=== PATIENT | female | born 1955 | race Caucasian/White ===

== ENCOUNTER → 2016-06-11 | Outpatient (CLI) | payer MEDICARE ==
[2016-06-11 12:55] LABS: Calcium 9.3 mg/dL (8.4-10.2); Potassium 4.8 mmol/L (3.5-5.1); Total Bilirubin 0.8 mg/dL (0.2-1.3)
== END | disposition home or self-care (01) ==
LOC: LABWHC1 11:15
PROVIDERS: ATTEND Internal Medicine Clinical Cardiac Electrophysiology
DX: I73.9 Peripheral vascular disease, unspecified (principal); I10 Essential (primary) hypertension
CPT/HCPCS: 36415; 80053; 80061; 84443

== ENCOUNTER 2016-06-30 18:40 | Emergency (ER) | payer MEDICARE ==
[2016-06-30] MEDS ORDERED: DIGOXIN 250 MCG/ML 2 ML AMP IVP ONE (19:13)
[2016-06-30 19:33] LABS: Basophils % (A) 1 %; CH 30.6; CHCM 35.4; Eosinophils # (A) 0.3 k/uL (0-0.7); Eosinophils % (A) 4 %; HCT 34.3 % (34.0-46.0); HDW 2.81; HGB 12.2 gm/dL (11.4-16.0); Luc # (Auto) 0.09; Luc % (Auto) 1; Lymphocytes # (A) 2.7 k/uL (1.0-4.8); Lymphocytes % (A) 38 %; MCH 30.8 pg (25.0-35.0); MCHC 35.6 g/dL (31.0-37.0); MCV 86.5 fL (80.0-100.0); Mean Platelet Volume 6.6; Monocytes # (A) 0.2 k/uL (0-1.0); Monocytes % (A) 3 %; Neutrophils # (A) 3.8 k/uL (1.3-7.7); Neutrophils % (A) 54 %; RBC 3.97 m/uL (3.80-5.40); RDW 14.6 % (11.5-15.5); WBC 7.1 k/uL (3.8-10.6); WBC (Perox) 7.28
[2016-06-30 19:43] LABS: INR 0.9 (<1.1); Prothrombin Time 9.5 sec (9.0-12.0)
[2016-06-30 19:45] LABS: Potassium 4.1 mmol/L (3.5-5.1); Total Bilirubin 0.9 mg/dL (0.2-1.3); Total Protein 6.7 g/dL (6.3-8.2)
[2016-06-30 19:50] LABS: Partial Thromboplastin Time 20.7 sec (22.0-30.0)
--- NOTE | 2016-06-30 19:55 | XR ---
EXAMINATION TYPE: XR chest 2V DATE OF EXAM: 06/30/2016 7:47 PM COMPARISON: 10/28/2015 HISTORY: Chest pain TECHNIQUE: Frontal and lateral views of the chest are obtained. FINDINGS: Heart and mediastinum are normal. Lungs are clear. Diaphragm is normal. Bony thorax is int act. There are chest leads. IMPRESSION: Normal chest. No change.
[2016-06-30 20:15] VITALS: BP 118/67; PULSE 71; RESP 18
[2016-06-30 20:15] LABS: Creatine Kinase MB 1.9 ng/mL (0.0-2.4); Troponin I <0.012 ng/mL (0.000-0.034)
--- NOTE | 2016-06-30 20:43 | ED ---
Chest Pain HPI - General Chief Complaint: Chest Pain Stated Complaint: Chest Pain Time Seen by Provider: 06/30/16 19:02 Source: patient Mode of arrival: EMS Limitations: no limitations - History of Present Illness Initial Comments: This is a 61-year-old female with a history of CHF, CAD who presents emergency department for an episode of chest pain. She states that she became very anxious and then all of a sudden developed some chest pain. She took a Xanax and a nitro and complete resolution of her symptoms. She currently feels completely fine. She denied any radiation of the pain. No lightheadedness or syncope. No nausea or vomiting. She did have a cath done in February and it does show obstructive disease. She followed up with a grommet man that you have, however they are not able to perform a CABG. She is scheduled to have a defibrillator in inserted because of her low EF. Her grommet man appears Dr. Steen. She denies any other complaints. - Related Data Home Medications Medication Instructions Recorded Confirmed Cholecalciferol [Vitamin D3] 2,000 unit PO DAILY 03/13/14 06/30/16 Omeprazole [PriLOSEC] 40 mg PO AC-BRKFST 08/06/14 06/30/16 Cyclobenzaprine [Flexeril] 10 mg PO HS 07/03/15 06/30/16 HYDROcodone/APAP 10-325MG [[place] 1 tab PO Q6HR PRN 10/28/15 06/30/16 10-325] Sennosides/Docusate Sodium 1 tab PO DAILY PRN 10/28/15 06/30/16 [Lotus-Colace Tablet] Escitalopram [Lexapro] 20 mg PO DAILY 11/06/15 06/30/16 Metoprolol Succinate [Toprol XL] 50 mg PO DAILY 02/09/16 06/30/16 INSULIN LISPRO (For Pump) [humaLOG 0.01 units SQ-PUMP CONTINUOUS 02/12/16 (For Pump)] Furosemide [Lasix] 20 mg PO SUTUWETHSA@209905/31/16 06/30/16 Rosuvastatin Calcium [Crestor] 40 mg PO DAILY 05/31/16 06/30/16 Furosemide [Lasix] 40 mg PO MOFR@209906/30/16 06/30/16 Furosemide [Lasix] 40 mg PO QAM 06/30/16 06/30/16 Previous Rx's Medication Instructions Recorded Clopidogrel [Plavix] 75 mg PO DAILY #90 tab 01/17/16 Nitroglycerin Sl Tabs [Nitrostat] 0.4 mg SUBLINGUAL Q5M PRN #25 tab 02/18/16 ALPRAZolam [Xanax] 0.25 mg PO TID PRN #21 tab 02/27/16 Aspirin 325 mg PO DAILY #30 tab 02/27/16 Spironolactone [Aldactone] 25 mg PO DAILY #30 tab 02/27/16 Allergies Allergy/AdvReac Type Severity Reaction Status Date / Time adhesive Allergy Rash/Hives Verified 06/30/16 19:38 Penicillins Allergy Rash/Hives Verified 06/30/16 19:38 meperidine HCl [From Demerol] AdvReac Hallucinati Verified 06/30/16 19:38 ons Review of Systems ROS Statement: Those systems with pertinent positive or pertinent negative responses have been documented in the HPI. ROS Other: All systems not noted in ROS Statement are negative. Past Medical History Past Medical History: Asthma, Coronary Artery Disease (CAD), Chest Pain / Angina , Diabetes Mellitus, Eye Disorder, Fibromyalgia, GERD/Reflux, Hyperlipidemia, Hypertension, Myocardial Infarction ([place]), Osteoarthritis (OA), Pneumonia, Renal Disease, Syncope, Vascular Disorder Additional Past Medical History / Comment(s): IDDM type II with insulin pump, numbness and tingling bilateral feet, nonhealing ulcers to L and R foot,rt foot baby toe tobias- dr levi monitoring per pt, PAD, carotid artery disease, anemia , bilateral retinopathy, generalized arthritis. Last Myocardial Infarction Date:: 02/12/2016 History of Any Multi-Drug Resistant Organisms: None Reported Past Surgical History: Adenoidectomy, Bariatric Surgery, Cholecystectomy, Heart Catheterization, Hernia Repair, Joint Replacement, Tonsillectomy Additional Past Surgical History / Comment(s): 02-11-16 R anterior tibial artery PTBA with post procedure hematoma, 01/16/16 L fem/pop arthrectomy with PTBA/ stent. Other surgical hx: Peripheral angiogram, 08/07/14 c cath, L hand pinky finger amputated, L arm surgery for staph infection, 3 hernia repairs, hiatal hernia repair, lap band placed and removed, gastric sleeve, bilateral cataract removal with lens implants. alesia breast bx neg,rt shoulder arthroscopy , [place] shoulder manipulation, lt elbow drained d/t staph infection 2006 Past Anesthesia/Blood Transfusion Reactions: Postoperative Nausea & Vomiting ( PONV) Additional Past Anesthesia/Blood Transfusion Reaction / Comment(s): Pt has had a blood transfusion recently Past Psychological History: Anxiety Additional Psychological History / Comment(s): Pt lives with her and their 3cats. She is very independent. She does not drive a car due to eye problems. She is diabetic and on an insulin pump. She has decreased her activities since her. last discharge due to her heart blockages. Her is very helpful. She is getting around in a wheelchair now or uses a rolling walker. She has VNA coming in a couple times a week. Smoking Status: Former smoker Past Alcohol Use History: None Reported Additional Past Alcohol Use History / Comment(s): Pt started smoking at the age of 11 and quit smoking many yrs ago (before 1984). Past Drug Use History: None Reported - Past Family History Father Family Medical History: Vascular Disorder Additional Family Medical History / Comment(s): from vascular disorder Mother Family Medical History: Deep Vein Thrombosis (DVT) General Exam - General Exam Comments Initial Comments: Constitutional: Awake alert Appears comfortable Head: Normocephalic atraumatic Eyes: no conjunctival injection No scleral icterus EOMI Neck: No JVD Supple Heart: Regular rate rhythm normal S1-S2 no murmurs Lungs: Clear to auscultation bilaterally No wheezing No rales Abdomen: Soft nondistended nontender Extremities: Non edematous DP pulses intact Radial pulses intact Neuro: A&Ox3 No focal neurologic deficits Psych: Appropriate mood and affect Limitations: no limitations Course Vital Signs 06/30/16 06/30/16 18:57 20:14 Temperature 97.8 F Pulse Rate 78 71 Respiratory 16 18 Rate Blood Pressure 119/78 118/67 O2 Sat by Pulse 95 99 Oximetry - Reevaluation(s) Reevaluation #1: 06/30/16 20:58 EKG showing normal sinus rhythm with a rate of 76. No ST 7 changes or T-wave inversions. QTC is 477. Other intervals are normal. No ectopy. Chest Pain MDM - MDM This is a 61-year-old female who presents emergency department for chest pain. It resolved by the time she got here. Blood work showed a negative troponin and EKG was completely unremarkable. Spoke with Dr. fabian on who is manager of corporate communications for Dr. Sandy and he stated that he felt comfortable with the patient going home and following up as an outpatient. The patient states that she feels comfortable with this plan as well. Told to return should any worsening or changing symptoms reductions were answered. Disposition Clinical Impression: Chest pain Disposition: HOME SELF-CARE Condition: Stable Instructions: Chest Pain (ED) Referrals: Jairo Levi DO [Primary Care Provider] - 1-2 days Leonardo Steen MD [STAFF PHYSICIAN] - 1-2 days
[2016-06-30 21:06] VITALS: TEMP 99
== END 2016-06-30 20:55 | disposition home or self-care (01) ==
LOC: EC 18:40
DX: R07.9 Chest pain, unspecified (principal); I10 Essential (primary) hypertension; E78.5 Hyperlipidemia, unspecified; K21.9 Gastro-esophageal reflux disease without esophagitis; E11.29 Type 2 diabetes mellitus with other diabetic kidney complication; N28.9 Disorder of kidney and ureter, unspecified; I25.10 Atherosclerotic heart disease of native coronary artery without angina pectoris; I50.9 Heart failure, unspecified; I25.2 Old myocardial infarction; F41.9 Anxiety disorder, unspecified; Z87.891 Personal history of nicotine dependence; Z79.4 Long term (current) use of insulin; Z79.82 Long term (current) use of aspirin; Z79.02 Long term (current) use of antithrombotics/antiplatelets; Z79.899 Other long term (current) drug therapy; Z88.0 Allergy status to penicillin; Z88.5 Allergy status to narcotic agent
CPT/HCPCS: 36415; 71020; 80053; 82553; 84484; 85025; 85610; 85730; 93005; 99284

== ENCOUNTER 2016-07-15 06:24 | Day surgery (SDC) | payer MEDICARE ==
[2016-07-13 13:04] VITALS: BMI 31.4
[2016-07-15] MEDS ORDERED: SODIUM CHLORIDE 0.9% 1,000 ML IV SCH (06:27)
[2016-07-15] MEDS ORDERED: CLINDAMYCIN 900 MG in DEXTROSE 5% IN WATER 50 ML IVPB ONE ×2 (06:27)
[2016-07-15] MEDS ORDERED: CLINDAMYCIN 600 MG in SODIUM CHLORIDE 0.9% IRRIGATIO 250 ML IRRIGATION ONE (06:27)
[2016-07-15 07:01] LABS: Glucose,Whole Blood 105 mg/dL (75-99)
[2016-07-15] MEDS ORDERED: PROPOFOL 10 MG/ML 20 ML VIAL IV ONE (07:18)
[2016-07-15] MEDS ORDERED: MIDAZOLAM 2 MG/2 ML VIAL ONE (07:18)
[2016-07-15] MEDS ORDERED: ePHEDrine 50 MG/ML 1 ML AMP ONE (07:18)
[2016-07-15] MEDS ORDERED: fentaNYL (PF) 50 MCG/ML 2 ML AMP ONE (07:18)
[2016-07-15] MEDS ORDERED: LIDOCAINE 1% INJ 10MG/ML (20 ML MDV) SQ ONE ×2 (08:07→08:12)
[2016-07-15] MEDS ORDERED: IODIXANOL 320 MG/ML 100 ML IV ONE (08:25)
[2016-07-15] MEDS ORDERED: ACETAMINOPHEN TAB 325 MG TAB PO PRN (09:15)
[2016-07-15] MEDS ORDERED: INSULIN LISPRO (For Pump) 100 UNIT/ML VIAL SQ-PUMP SCH (09:30)
[2016-07-15 09:44] LABS: Glucose,Whole Blood 126 mg/dL (75-99)
--- NOTE | 2016-07-15 09:55 | PCN ---
DATE OF PROCEDURE: Dodie Zafar is a 61-year-old female who has severe coronary artery disease with ischemic cardiomyopathy, ejection fraction 35%, class III heart failure but stable now. She has had recurrent heart failure admissions in the past. She also has severe peripheral vascular disease, status post intervention following which her ulcer healed very well. She has diabetes and hypertension and she has undergone stenting to the mid RCA in of February 2016. She was brought in for single-chamber ICD implantation for primary prevention of sudden cardiac . Patient brought to the EP lab in a fasting state. Written informed consent was obtained prior to the procedure. The left shoulder area was prepped and draped as per protocol, 1% lidocaine was used for local anesthesia. A 4 cm incision was made parallel to the deltopectoral groove about 1.5 cm in length. The incision was carried down to the level of pectoralis muscle. A subfascial pocket was made. Hemostasis was assured. The left axillary vein was accessed to the single-point and via an appropriate-sized introducer sheath, a single coil lead was positioned in the right heart. The ICD was positioned screwed in the RV apex. This is single coil lead, [place] 64 cm model #0293, serial #[id number], DS 4-lead. R-waves were 17.8 mV, pacing threshold 0.9 v at 0.4 ms, pacing impedance 800 ohms, high voltage impedance 72 ohms, 10 V test was negative. The lead was secured to the underlying pectoralis fascia using 2 nonabsorbable sutures. Pocket was irrigated with antibiotic solution. The lead was connected to the generator ([employer] model #D150, serial #[id number].) The generator was placed in the subfascial pocket, the generator was sutured in the pectoralis muscle. The wound was closed in 3 layers and dressed per protocol. DFT testing under anesthesia, shock and T-wave protocol was used to induce ventricular fibrillation. This was adequately and appropriately detected at least sensitivity and successfully internally defibrillated with a 10 joule shock. The charge time who was 1.9 seconds, shocking impedance 66 ohms, no postshock noise. The device was then programmed according to the RIT programming and with back-up pacing at VVI 40. RESULT: Successful single-chamber ICD implantation for primary prevention of sudden cardiac in the setting of ischemic cardiomyopathy with heart failure. Patient on appropriate medical treatment. Ejection fraction chronically at 35%.
--- NOTE | 2016-07-15 09:57 | LTR ---
July 15, 2016 RE: Dodie Zafar Meghan Dear Jairo: I had the pleasure of seeing Dodie Zafar in electrophysiology follow up. As you know, Dodie has severe ischemic cardiomyopathy with a history of heart failure. She has now stabilized on medical treatment. Her lower extremity ulcers have also healed following percutaneous intervention by Dr. Steen. Her left ventricular ejection fraction is chronically at 35% despite appropriate medical treatment and she underwent a single-chamber ICD implantation for primary prevention of sudden cardiac . She will be discharged home tomorrow. If you have any questions, please do not hesitate to give me a call. Thank you for entrusting me with the care of your patient. Warm regards. Sincerely, FE LYON MD
[2016-07-15 12:02] LABS: Glucose,Whole Blood 111 mg/dL (75-99)
[2016-07-15] MEDS ORDERED: INSULIN PUMP ACTIVE INSULIN 1 EACH MISC MISCELLANE PRN (12:08)
[2016-07-15] MEDS ORDERED: INSULIN LISPRO (humaLOG) 300 UNIT/3 ML VIAL SQ PRN (12:08)
[2016-07-15] MEDS ORDERED: INSULIN PUMP BASAL RATES 1 EACH MISC MISCELLANE PRN (12:08)
[2016-07-15] MEDS ORDERED: INSULIN PUMP TARGET GLUCOSE 1 EACH MISC MISCELLANE PRN (12:08)
[2016-07-15] MEDS ORDERED: INSPUCOR MISCELLANE PRN (12:08)
[2016-07-15] MEDS: INSULIN PUMP MEAL BOLUS 1 UNIT MISC MISCELLANE SCH ×3 (13:52→20:35)
[2016-07-15] MEDS: CLINDAMYCIN 900 MG in DEXTROSE 5% IN WATER 50 ML IVPB SCH ×4 (13:55→20:31)
[2016-07-15 17:13] LABS: Glucose,Whole Blood 164 mg/dL (75-99)
[2016-07-15] MEDS: FUROSEMIDE 40 MG TAB PO SCH (20:31)
[2016-07-15 20:36] LABS: Glucose,Whole Blood 190 mg/dL (75-99)
[2016-07-15] MEDS ORDERED: CYCLOBENZAPRINE 10 MG TAB PO SCH (21:00)
[2016-07-15] MEDS ORDERED: LISINOPRIL 2.5 MG TAB PO SCH (21:00)
[2016-07-15] MEDS: HYDROcodone/APAP 10-325MG 1 EACH TAB PO PRN (23:30)
[2016-07-16] MEDS: CLINDAMYCIN 900 MG in DEXTROSE 5% IN WATER 50 ML IVPB SCH ×4 (01:27→07:45)
[2016-07-16 02:42] LABS: Glucose,Whole Blood 108 mg/dL (75-99)
[2016-07-16] MEDS: INSULIN PUMP MEAL BOLUS 1 UNIT MISC MISCELLANE SCH (07:45)
[2016-07-16] MEDS: FUROSEMIDE 40 MG TAB PO SCH (07:46)
[2016-07-16 07:50] LABS: Glucose,Whole Blood 85 mg/dL (75-99)
--- NOTE | 2016-07-16 08:08 | XR ---
EXAMINATION TYPE: XR chest 2V DATE OF EXAM: 07/16/2016 6:56 AM HISTORY: Lead placement check. REFERENCE: Previous study dated 06/30/2016. FINDINGS: A unipolar pacemaker has been inserted via a left subclavian approach. Its tip overlies the right ventricle. The lungs are clear. Pleural spaces are clear. Heart size is normal. IMPRESSION: NORMAL UNIPOLAR PACEMAKER LEAD PLACEMENT.
--- NOTE | 2016-07-16 08:14 | P.DS ---
Providers Attending physician: Toñito Nagel Primary care physician: Jairo [facility] Course: Patient is doing well. She has mild discomfort in the ICD site. No hematoma. No chest discomfort no shortness of breath Temperature 98.5F pulse rate in the 70s, normal respirations, blood pressure 100/50 mmHg Breath sounds are normal Heart sounds are normal Impression Severe ischemic cardio myopathy, left radical ejection fraction 30-35%, chronic systolic dysfunction with class III congestive heart failure stable at this time On appropriate Therapy for cardiomyopathy in heart failure Coronary artery disease Peripheral vascular disease Status post single chamber ICD for primary prevention of sudden cardiac Discharge home today after IV antibiotics and device interrogation Patient Condition at Discharge: Stable Plan - Discharge Summary Discharge Medication List Cholecalciferol [Vitamin D3] 2,000 unit PO DAILY 03/13/14 [History] Omeprazole [PriLOSEC] 40 mg PO AC-BRKFST 08/06/14 [History] Cyclobenzaprine [Flexeril] 10 mg PO HS 07/03/15 [History] HYDROcodone/APAP 10-325MG [[place] 10-325] 1 tab PO Q6HR PRN 10/28/15 [History] Sennosides/Docusate Sodium [Lotus-Colace Tablet] 1 tab PO DAILY 10/28/15 [History ] Escitalopram [Lexapro] 20 mg PO DAILY 11/06/15 [History] Clopidogrel [Plavix] 75 mg PO DAILY #90 tab 01/17/16 [Rx] Metoprolol Succinate [Toprol XL] 25 mg PO DAILY 02/09/16 [History] INSULIN LISPRO (For Pump) [humaLOG (For Pump)] 0.01 units SQ-PUMP CONTINUOUS 10/22 [History] Nitroglycerin Sl Tabs [Nitrostat] 0.4 mg SUBLINGUAL Q5M PRN #25 tab 02/18/16 [Rx ] ALPRAZolam [Xanax] 0.25 mg PO TID PRN #21 tab 02/27/16 [Rx] Aspirin 325 mg PO DAILY #30 tab 02/27/16 [Rx] Spironolactone [Aldactone] 25 mg PO DAILY #30 tab 02/27/16 [Rx] Rosuvastatin Calcium [Crestor] 40 mg PO DAILY 05/31/16 [History] Furosemide [Lasix] 40 mg PO BID 06/30/16 [History] Lisinopril [Zestril] 2.5 mg PO HS 07/13/16 [History]
[2016-07-16 08:25] VITALS: BP 96/51; PULSE 69; RESP 14; TEMP 98.2
[2016-07-16] MEDS ORDERED: ESCITALOPRAM 20 MG TAB PO SCH (09:00)
[2016-07-16] MEDS ORDERED: ASPIRIN 325 MG TAB PO SCH (09:00)
[2016-07-16] MEDS ORDERED: CLOPIDOGREL 75 MG TAB PO SCH (09:00)
[2016-07-16] MEDS ORDERED: SPIRONOLACTONE 25 MG TAB PO SCH (09:00)
[2016-07-16] MEDS ORDERED: NON-FORMULARY DRUG (Rosuvastatin Calcium [Crestor] 40 MG) PO SCH (09:00)
[2016-07-16] MEDS ORDERED: METOPROLOL SUCCINATE (ER) 25 MG TAB.ER.24H PO SCH (09:00)
[2016-07-16] MEDS: HYDROcodone/APAP 10-325MG 1 EACH TAB PO PRN (09:05)
[2016-07-16 19:49] LABS: Hemoglobin A1C 7.9 % (4.2-6.1)
== END 2016-07-16 11:00 | disposition home or self-care (01) ==
LOC: CATHEP 06:24 → 3OBS 09:18 → CATHEP 07-16 11:00
PROVIDERS: ATTEND Internal Medicine Clinical Cardiac Electrophysiology
DX: I25.5 Ischemic cardiomyopathy (principal); I25.82 Chronic total occlusion of coronary artery; E11.9 Type 2 diabetes mellitus without complications; I10 Essential (primary) hypertension; Z00.6 Encounter for examination for normal comparison and control in clinical research program; I50.22 Chronic systolic (congestive) heart failure; I70.244 Atherosclerosis of native arteries of left leg with ulceration of heel and midfoot; I70.234 Atherosclerosis of native arteries of right leg with ulceration of heel and midfoot; Z95.820 Peripheral vascular angioplasty status with implants and grafts; I65.29 Occlusion and stenosis of unspecified carotid artery; I25.2 Old myocardial infarction; Z87.891 Personal history of nicotine dependence; Z82.49 Family history of ischemic heart disease and other diseases of the circulatory system; Z95.5 Presence of coronary angioplasty implant and graft; Z79.02 Long term (current) use of antithrombotics/antiplatelets; Z79.82 Long term (current) use of aspirin; Z79.4 Long term (current) use of insulin; Z79.899 Other long term (current) drug therapy; Z88.5 Allergy status to narcotic agent; Z88.0 Allergy status to penicillin; Z88.8 Allergy status to other drugs, medicaments and biological substances
CPT/HCPCS: 33249; 83036; 71020; C1777; C1722; J2250; Q9967; J2001; J3010; J2704

== ENCOUNTER 2016-09-23 13:31 | Inpatient (IN) | payer MEDICARE ==
--- NOTE | 2016-09-23 14:39 | ED ---
General Adult HPI - General Chief complaint: Extremity Injury, Upper Stated complaint: rib pain/injury Time Seen by Provider: 09/23/16 14:23 Source: patient, RN notes reviewed, old records reviewed Mode of arrival: ambulatory Limitations: no limitations - History of Present Illness Initial comments: This is a 61-year-old female here for evaluation of side pain right side pain severe. Severe pain when she moves and takes a deep breath. Patient has significant disease history including heart disease. Patient states symptoms began when she was reaching over the car, she felt "as well as had severe right- sided pain. Symptoms for greater than today she woke up with pain worsen was yesterday, [place] as which she takes at home for pain and that is not helping at this time. No fevers. - Related Data Home Medications Medication Instructions Recorded Confirmed Cholecalciferol [Vitamin D3] 2,000 unit PO DAILY 03/13/14 09/23/16 Omeprazole [PriLOSEC] 40 mg PO AC-BRKFST 08/06/14 09/23/16 Cyclobenzaprine [Flexeril] 10 mg PO HS 07/03/15 09/23/16 HYDROcodone/APAP 10-325MG [[place] 1 tab PO Q6HR PRN 10/28/15 09/23/16 10-325] Sennosides/Docusate Sodium 1 tab PO DAILY 10/28/15 09/23/16 [Lotus-Colace Tablet] INSULIN LISPRO (For Pump) [humaLOG 0.01 units SQ-PUMP CONTINUOUS 02/12/16 (For Pump)] Rosuvastatin Calcium [Crestor] 40 mg PO DAILY 05/31/16 09/23/16 Lisinopril [Zestril] 2.5 mg PO HS 07/13/16 09/23/16 Escitalopram [Lexapro] 20 mg PO DAILY 09/23/16 09/23/16 Metoprolol Succinate [Toprol XL] 25 mg PO DAILY 09/23/16 09/23/16 Previous Rx's Medication Instructions Recorded Clopidogrel [Plavix] 75 mg PO DAILY #90 tab 01/17/16 Nitroglycerin Sl Tabs [Nitrostat] 0.4 mg SUBLINGUAL Q5M PRN #25 tab 02/18/16 ALPRAZolam [Xanax] 0.25 mg PO TID PRN #21 tab 02/27/16 Aspirin 325 mg PO DAILY #30 tab 02/27/16 Spironolactone [Aldactone] 25 mg PO DAILY #30 tab 02/27/16 Allergies Allergy/AdvReac Type Severity Reaction Status Date / Time adhesive tape Allergy Rash/Hives Verified 09/23/16 15:05 Penicillins Allergy Rash/Hives Verified 09/23/16 15:05 atorvastatin AdvReac Myalgia Verified 09/23/16 15:05 meperidine HCl [From Demerol] AdvReac Hallucinati Verified 09/23/16 15:05 ons Review of Systems ROS Statement: Those systems with pertinent positive or pertinent negative responses have been documented in the HPI. ROS Other: All systems not noted in ROS Statement are negative. Past Medical History Past Medical History: Asthma, Coronary Artery Disease (CAD), Chest Pain / Angina , Diabetes Mellitus, Eye Disorder, Fibromyalgia, GERD/Reflux, Hyperlipidemia, Hypertension, Myocardial Infarction ([place]), Osteoarthritis (OA), Pneumonia, Renal Disease, Syncope, Vascular Disorder Additional Past Medical History / Comment(s): IDDM type II with insulin pump. numbness and tingling bilateral feet, PAD. Carotid artery disease. anemia. Bilateral retinopathy - BEING TREATED. KIDNEY DISEASE STAGE 3. BRUISES EASILY. SHORT OF BREATH, LIGHTHEADED W/ ACTIVITY. CMP. SEE DR Ward. Last Myocardial Infarction Date:: 02/12/2016 History of Any Multi-Drug Resistant Organisms: None Reported Past Surgical History: Adenoidectomy, Bariatric Surgery, Cholecystectomy, Heart Catheterization, Heart Catheterization With Stent, Hernia Repair, Joint Replacement, Tonsillectomy Additional Past Surgical History / Comment(s): 02-11-16 RT anterior tibial artery PTBA with post procedure hematoma, 01/16/16 L fem/pop arthrectomy with PTBA/stent. Peripheral angiogram, LT hand pinky finger amputated. L arm surgery for staph infection. 3 hernia repairs. hiatal hernia repair, lap band placed, removed, THEN gastric sleeve. bilateral cataract removal, XAVIER SHOULDER manipulation, lt elbow drained d/t staph infection 2005 Past Anesthesia/Blood Transfusion Reactions: Postoperative Nausea & Vomiting ( PONV) Additional Past Anesthesia/Blood Transfusion Reaction / Comment(s): LAST Blood Transfusion, 02/2016. Date of Last Stent Placement:: 02/2016 Past Psychological History: Anxiety, Depression Additional Psychological History / Comment(s): She is getting around in a wheelchair now. Smoking Status: Former smoker Past Alcohol Use History: None Reported Additional Past Alcohol Use History / Comment(s): Pt started smoking at the age of 11 and quit smoking many yrs ago (before 1984). Past Drug Use History: None Reported - Past Family History Father Family Medical History: Vascular Disorder Additional Family Medical History / Comment(s): from vascular disorder Mother Family Medical History: Deep Vein Thrombosis (DVT) General Exam Limitations: no limitations General appearance: alert, in no apparent distress Head exam: Present: atraumatic, normocephalic, normal inspection Eye exam: Present: normal appearance, PERRL, EOMI. Absent: scleral icterus, conjunctival injection, periorbital swelling ENT exam: Present: normal exam, mucous membranes moist Neck exam: Present: normal inspection. Absent: tenderness, meningismus, lymphadenopathy Respiratory exam: Present: normal lung sounds bilaterally. Absent: respiratory distress, wheezes, rales, rhonchi, stridor Cardiovascular Exam: Present: regular rate, normal rhythm, normal heart sounds. Absent: systolic murmur, diastolic murmur, rubs, gallop, clicks GI/Abdominal exam: Present: soft, normal bowel sounds. Absent: distended, tenderness, guarding, rebound, rigid Extremities exam: Present: normal inspection, full ROM, normal capillary refill. Absent: tenderness, pedal edema, joint swelling, calf tenderness Back exam: Present: normal inspection Neurological exam: Present: alert, oriented X3, CN II-XII intact Psychiatric exam: Present: normal affect, normal mood Skin exam: Present: warm, dry, intact, normal color. Absent: rash Course Vital Signs 09/23/16 13:37 Temperature 98.2 F Pulse Rate 83 Respiratory 20 Rate Blood Pressure 91/56 O2 Sat by Pulse 100 Oximetry - Reevaluation(s) Reevaluation #1: 09/23/16 15:59 Patient's pain is controlled Reevaluation #2: 09/23/16 16:21 Patient remains with good pain control at this time Medical Decision Making - Medical Decision Making 61 female to ER with right-sided flank pain, rib pain. Patient does have pulled muscle which is controlled pain control with patient's also found to be in profound renal failure dehydration. Patient be admitted for fluid resuscitation and nephrology evaluation - Lab Data Result diagrams: 09/23/16 15:42 09/23/16 15:42 Lab Results 09/23/16 09/23/16 09/23/16 Range/Units 15:42 15:42 15:42 WBC 8.3 (3.8-10.6) k/uL RBC 3.83 (3.80-5.40) m/uL Hgb 11.9 (11.4-16.0) gm/dL Hct 34.2 (34.0-46.0) % MCV 89.4 (80.0-100.0) fL MCH 31.1 (25.0-35.0) pg MCHC 34.8 (31.0-37.0) g/dL RDW 12.3 (11.5-15.5) % Plt Count 225 (150-450) k/uL Neutrophils % 48 % Lymphocytes % 41 % Monocytes % 6 % Eosinophils % 4 % Basophils % 1 % Neutrophils # 4.0 (1.3-7.7) k/uL Lymphocytes # 3.4 (1.0-4.8) k/uL Monocytes # 0.5 (0-1.0) k/uL Eosinophils # 0.3 (0-0.7) k/uL Basophils # 0.1 (0-0.2) k/uL PT 9.9 (9.0-12.0) sec INR 1.0 (<1.1) APTT 24.0 (22.0-30.0) sec Sodium 135 L (137-145) mmol/L Potassium 4.6 (3.5-5.1) mmol/L Chloride 101 (98-107) mmol/L Carbon Dioxide 20 L (22-30) mmol/L Anion Gap 14 mmol/L BUN 87 H* (7-17) mg/dL Creatinine 5.80 H* (0.52-1.04) mg/dL Est GFR (MDRD) Af Amer 9 (>60 ml/min/1.73 sqM) Est GFR (MDRD) Non-Af 7 (>60 ml/min/1.73 sqM) Glucose 102 H (74-99) mg/dL Calcium 9.4 (8.4-10.2) mg/dL Magnesium 2.8 H (1.6-2.3) mg/dL Total Bilirubin 0.5 (0.2-1.3) mg/dL AST 25 (14-36) U/L ALT 24 (9-52) U/L Alkaline Phosphatase 62 (38-126) U/L Total Protein 6.9 (6.3-8.2) g/dL Albumin 4.1 (3.5-5.0) g/dL Lipase 72 (23-300) U/L - Radiology Data Radiology results: report reviewed (CT pelvis is negative for acute disease, x- ray right ribs is negative for injury), image reviewed Disposition Clinical Impression: Renal failure Disposition: ADMITTED IP TO THIS [facility] Condition: Fair Referrals: Jairo Levi DO [Primary Care Provider] - 1-2 days
[2016-09-23] MEDS ORDERED: KETOROLAC 30 MG/ML 1 ML VIAL IVP STA (14:50)
[2016-09-23] MEDS ORDERED: MORPHINE SULFATE 4 MG/ML SYRINGE IV STA (14:50)
[2016-09-23] MEDS ORDERED: SODIUM CHLORIDE 0.9% 1,000 ML IV STA ×3 (14:50→17:06)
[2016-09-23] MEDS ORDERED: HYDROmorphone 2 MG/ML 1 ML SYRINGE IM STA (15:02)
--- NOTE | 2016-09-23 15:20 | CT ---
EXAMINATION TYPE: CT abdomen pelvis wo con DATE OF EXAM: 09/23/2016 3:11 PM HISTORY: Right rib and abdominal pain after bending to pick something up. CT DLP: 865.30 mGycm. Automated Exposure Control for Dose Reduction was Utilized. TECHNIQUE: CT scan of the abdomen and pelvis is performed without oral or IV contrast. COMPARISON: CT abdomen and pelvis July 17, 2013 FINDINGS: Within the limitations of a non-contrast study, the following observations are made. LUNG BASES: There is partial visualization of new pacemaker/defibrillator leads. LIVER/GB: Cholecystectomy clips are redemonstrated PANCREAS: Fat replaced atrophy of pancreas is again seen. SPLEEN: No significant abnormality is seen. ADRENALS: No significant abnormality is seen. KIDNEYS: Some cortical thinning in both kidneys is noted. BOWEL: Evaluation bowel is suboptimal secondary to lack of enteric contrast. There is interval remova l of lap band device. Surgical changes presumed from gastric sleeve procedure are seen along the left lateral margin of the stomach. There is no suspicious small or large bowel dilatation. Normal-appear ing appendix is seen from cecum. GENITAL ORGANS: No gross abnormality seen. LYMPH NODES: No greater than 1cm abdominal or pelvic lymph nodes are appreciated. OSSEOUS STRUCTURES: Osseous structures are demineralized. Facet arthropathy lower lumbar levels is ag ain seen. OTHER: There is wide neck fat-containing ventral wall hernia in the midline above the umbilicus on ax ial image 39 new from prior. There is mild to moderate calcified atherosclerotic change of aorta extending into pelvic branch vess els IMPRESSION: No significant new or acute finding is identified to account for patient's symptoms.
[2016-09-23 15:57] LABS: Basophils # (A) 0.1 k/uL (0-0.2); Basophils % (A) 1 %; CH 31.5; CHCM 35.4; Eosinophils # (A) 0.3 k/uL (0-0.7); Eosinophils % (A) 4 %; HCT 34.2 % (34.0-46.0); HDW 2.76; HGB 11.9 gm/dL (11.4-16.0); Luc # (Auto) 0.17; Luc % (Auto) 2; Lymphocytes # (A) 3.4 k/uL (1.0-4.8); Lymphocytes % (A) 41 %; MCH 31.1 pg (25.0-35.0); MCHC 34.8 g/dL (31.0-37.0); MCV 89.4 fL (80.0-100.0); Mean Platelet Volume 6.8; Monocytes # (A) 0.5 k/uL (0-1.0); Monocytes % (A) 6 %; Neutrophils % (A) 48 %; RBC 3.83 m/uL (3.80-5.40); RDW 12.3 % (11.5-15.5); WBC 8.3 k/uL (3.8-10.6)
[2016-09-23 16:04] LABS: Prothrombin Time 9.9 sec (9.0-12.0)
[2016-09-23 16:11] LABS: Calcium 9.4 mg/dL (8.4-10.2); Magnesium 2.8 mg/dL (1.6-2.3); Potassium 4.6 mmol/L (3.5-5.1); Total Bilirubin 0.5 mg/dL (0.2-1.3); Total Protein 6.9 g/dL (6.3-8.2)
--- NOTE | 2016-09-23 16:13 | XR ---
EXAMINATION TYPE: XR ribs RT w pa chest x-ray DATE OF EXAM: 09/23/2016 4:04 PM CLINICAL HISTORY: Straining injury with chest and right-sided rib pain. TECHNIQUE: Single frontal view of the chest is obtained. A frontal and oblique images of the right-si ded ribs are acquired. COMPARISON: Prior chest x-ray July 16, 2016 FINDINGS: There is no focal air space opacity, pleural effusion, or pneumothorax seen. The cardiac silhouette size is within normal limits. There is single lead pacemaker/AICD redemonstrated. The os seous structures are demineralized. Dedicated images of right-sided ribs show chronic deformity or shortening of right sixth rib. No acut e displaced right-sided rib fractures are evident. Cholecystectomy clips are noted. IMPRESSION: 1. No acute cardiopulmonary process. 2. No acute displaced right-sided rib fractures are evident
[2016-09-23] MEDS ORDERED: HYDROmorphone 1 MG/ML 1 ML SYRINGE IVP STA (16:20)
[2016-09-23] MEDS ORDERED: HYDROmorphone 1 MG/ML 1 ML SYRINGE IVP PRN (16:20)
[2016-09-23 16:32] LABS: Creatine Kinase MB 2.2 ng/mL (0.0-2.4); Troponin I 0.018 ng/mL (0.000-0.034)
[2016-09-23] MEDS ORDERED: ACETAMINOPHEN IV (For NPO) 1,000 MG in EMPTY BAG 1 BAG IVPB STA (17:17)
[2016-09-23] MEDS ORDERED: NALOXONE 0.4 MG/ML 10 ML VIAL IVP STA (17:17)
[2016-09-23] MEDS ORDERED: ALPRAZolam 0.25 MG TAB PO PRN (18:41)
[2016-09-23] MEDS ORDERED: NITROGLYCERIN SL TABS 0.4 MG TAB SUBLINGUAL PRN (18:41)
[2016-09-23] MEDS ORDERED: INSULIN LISPRO (humaLOG) 300 UNIT/3 ML VIAL SQ PRN (19:01)
[2016-09-23] MEDS ORDERED: INSULIN PUMP BASAL RATES 1 EACH MISC MISCELLANE PRN (19:01)
[2016-09-23] MEDS ORDERED: INSPUCOR MISCELLANE PRN (19:01)
[2016-09-23] MEDS: INSULIN LISPRO (For Pump) 100 UNIT/ML VIAL SQ-PUMP SCH (19:33)
[2016-09-23] MEDS ORDERED: LISINOPRIL 2.5 MG TAB PO SCH (21:00)
[2016-09-23 21:38] LABS: Glucose,Whole Blood 94 mg/dL (75-99)
[2016-09-23] MEDS: CYCLOBENZAPRINE 10 MG TAB PO SCH (21:42)
[2016-09-24 02:22] LABS: Glucose,Whole Blood 86 mg/dL (75-99)
[2016-09-24 07:03] LABS: Glucose,Whole Blood 79 mg/dL (75-99)
[2016-09-24] MEDS: SENNOSIDES-DOCUSATE SODIUM 1 EACH TAB PO SCH (08:00)
[2016-09-24] MEDS: ASPIRIN 325 MG TAB PO SCH (08:00)
[2016-09-24] MEDS: CHOLECALCIFEROL 1,000 UNIT TAB PO SCH (08:00)
[2016-09-24] MEDS: SPIRONOLACTONE 25 MG TAB PO SCH (08:00)
[2016-09-24] MEDS: ESCITALOPRAM 20 MG TAB PO SCH (08:00)
[2016-09-24] MEDS: METOPROLOL SUCCINATE (ER) 25 MG TAB.ER.24H PO SCH (08:00)
[2016-09-24] MEDS: PANTOPRAZOLE 40 MG TABLET PO SCH (08:00)
[2016-09-24] MEDS: CLOPIDOGREL 75 MG TAB PO SCH (08:01)
--- NOTE | 2016-09-24 08:11 | US ---
EXAMINATION TYPE: US kidneys/renal and bladder DATE OF EXAM: 09/24/2016 7:52 AM COMPARISON: NONE CLINICAL HISTORY: 58-year-old female with pain, acute renal failure . TECHNIQUE: Multiple sonographic images of the kidneys and bladder were obtained. FINDINGS: LINUX DEVELOPER NOTES: Morbidly obese patient, technically difficult study. Right Kidney: 10.6 x 4.1 x 4.8 cm Left Kidney: 10.2 x 4.9 x 5.0 cm with limited visualization of the lower pole. No hydronephrosis on either side. No gross abnormality of the urine distended bladder. IMPRESSION: Large patient body habitus causing technical limitations. No hydronephrosis seen on either side.
[2016-09-24 09:50] LABS: Calcium 8.2 mg/dL (8.4-10.2); Potassium 4.2 mmol/L (3.5-5.1)
--- NOTE | 2016-09-24 10:02 | P.NPCON ---
History of Present Illness - Reason for Consult acute renal failure - History of Present Illness Reason for consultation: Acute kidney injury History of present illness: Patient is a 61-year-old female seen in renal consultation for acute kidney injury. Her creatinine in February 2016 was 1 and has been in the range of 1.6-1.8 from June 2016. Her creatinine this admission is 5.8. Patient presented to the hospital with right-sided flank pain. Patient states this started last Tuesday when she was bending over in her car to get some Kleenex and felt a snap. No evidence of fracture is noted. She denies any bruising or any bleeding. She does admit to vomiting almost on a daily basis. She denies any diarrhea. She does have severe systolic CHF with ejection fraction of less than 20% with moderate mitral regurgitation and pulmonary hypertension. She has a defibrillator in place. Her prior urinalysis from October 2015 was completely benign. Chest x-ray this admission reveals no evidence of fluid overload. His no evidence of hydronephrosis. She does take diuretics at home which are currently held. Patient states her mother had chronic kidney disease but was not on dialysis. She is not sure of the etiology. Denies use of NSAIDs. Her blood pressures also been low in the systolic 80s this admission. She did receive a 2 L bolus upon admission and is currently maintained on normal saline at 100 mL an hour. Vital signs are stable. General: The patient appeared well nourished and normally developed. HEENT: Head exam is unremarkable. Neck is without jugular venous distension. LUNGS: Lungs are clear to auscultation and percussion. Breath sounds decreased. HEART: Rate and Rhythm are regular. First and second heart sounds normal. No murmurs, rubs or gallops. ABDOMEN: Abdominal exam reveals normal bowel sounds. Non-tender and non- distended. No evidence of peritonitis. EXTREMITITES: No clubbing, cyanosis, or edema. Past Medical History Past Medical History: Asthma, Coronary Artery Disease (CAD), Chest Pain / Angina , Diabetes Mellitus, Eye Disorder, Fibromyalgia, GERD/Reflux, Hyperlipidemia, Hypertension, Myocardial Infarction ([place]), Osteoarthritis (OA), Pneumonia, Renal Disease, Syncope, Vascular Disorder Additional Past Medical History / Comment(s): IDDM type II with insulin pump. numbness and tingling bilateral feet, PAD. PAST FOOT ULCERS Carotid artery disease. anemia. 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 BRUISES EASILY. SHORT OF BREATH,BALANCE ISSUES AND LIGHTHEADED W/ ACTIVITY. Last Myocardial Infarction Date:: 02/12/2016 History of Any Multi-Drug Resistant Organisms: None Reported Past Surgical History: Adenoidectomy, AICD, Bariatric Surgery, Cholecystectomy, Heart Catheterization, Heart Catheterization With Stent, Hernia Repair, Joint Replacement, Tonsillectomy Additional Past Surgical History / Comment(s): 02-11-16 RT anterior tibial artery PTBA with post procedure hematoma, 01/16/16 L fem/pop arthrectomy with PTBA/stent. Peripheral angiogram, LT hand pinky finger amputated. L arm surgery for staph infection. 3 hernia repairs. hiatal hernia repair, lap band placed, removed, THEN gastric sleeve. bilateral cataract removal, XAVIER SHOULDER manipulation, lt elbow drained d/t staph infection 2005 Past Anesthesia/Blood Transfusion Reactions: Postoperative Nausea & Vomiting ( PONV) Additional Past Anesthesia/Blood Transfusion Reaction / Comment(s): LAST Blood Transfusion, 02/2016. Date of Last Stent Placement:: 02/2016 Type of Cardiac Device: AICD Device Placement Date:: Past Psychological History: Anxiety, Depression Additional Psychological History / Comment(s): She is getting around in a wheelchair now. Smoking Status: Former smoker Past Alcohol Use History: None Reported Additional Past Alcohol Use History / Comment(s): Pt started smoking at the age of 11 and quit smoking many yrs ago (before 1984). Past Drug Use History: None Reported - Past Family History Father Family Medical History: Vascular Disorder Additional Family Medical History / Comment(s): from vascular disorder Mother Family Medical History: Deep Vein Thrombosis (DVT) Medications and Allergies Home Medications Medication Instructions Recorded Confirmed Type Cholecalciferol [Vitamin D3] 2,000 unit PO DAILY 03/13/14 09/23/16 History Omeprazole [PriLOSEC] 40 mg PO AC-BRKFST 08/06/14 09/23/16 History Cyclobenzaprine [Flexeril] 10 mg PO HS 07/03/15 09/23/16 History HYDROcodone/APAP 10-325MG [[place] 1 tab PO Q6HR PRN 10/28/15 09/23/16 History 10-325] Sennosides/Docusate Sodium 1 tab PO DAILY 10/28/15 09/23/16 History [Lotus-Colace Tablet] INSULIN LISPRO (For Pump) [humaLOG 0.01 units SQ-PUMP CONTINUOUS 02/12/16 History (For Pump)] Rosuvastatin Calcium [Crestor] 40 mg PO DAILY 05/31/16 09/23/16 History Lisinopril [Zestril] 2.5 mg PO HS 07/13/16 09/23/16 History Escitalopram [Lexapro] 20 mg PO DAILY 09/23/16 09/23/16 History Metoprolol Succinate [Toprol XL] 25 mg PO DAILY 09/23/16 09/23/16 History Allergies Allergy/AdvReac Type Severity Reaction Status Date / Time adhesive tape Allergy Rash/Hives Verified 09/23/16 15:05 Penicillins Allergy Rash/Hives Verified 09/23/16 15:05 atorvastatin AdvReac Myalgia Verified 09/23/16 15:05 meperidine HCl [From Demerol] AdvReac Hallucinati Verified 09/23/16 15:05 ons Physical Exam Vitals: Vital Signs Temp Pulse Pulse Resp BP BP Pulse Ox 09/24/16 07:00 97.0 F L 73 19 101/53 98 09/23/16 23:00 97.6 F 64 17 124/63 96 09/23/16 21:05 77 92/56 09/23/16 18:29 96.5 F L 86 20 118/63 99 09/23/16 18:02 80 16 149/87 99 09/23/16 17:42 80 18 143/64 95 09/23/16 17:23 98.9 F 77 18 125/89 99 09/23/16 17:16 70 18 82/50 95 09/23/16 17:02 68 18 77/43 96 09/23/16 16:31 72 18 79/53 99 09/23/16 13:37 98.2 F 83 20 91/56 100 Intake and Output 09/23/16 09/24/16 09/24/16 22:59 06:59 14:59 Other: Voiding Method Toilet # Voids 0 1 1 Results - Lab Results Most recent lab results Calcium 9.4 mg/dL (8.4-10.2) 09/23/16 15:42 Magnesium 2.8 mg/dL (1.6-2.3) H 09/23/16 15:42 09/23/16 15:42 09/23/16 15:42 Assessment and Plan Plan: Assessment: #1. Nonoliguric acute kidney injury mostly prerenal in nature secondary to hypotension and diuretics leading to intravascular volume depletion. Creatinine 5.8 this admission. No evidence of hydronephrosis. #2. Systolic CHF with ejection fraction of less than 20% with moderate mitral regurgitation and pulmonary hypertension. Compensated. #3. Insulin-dependent diabetes mellitus. #4. Right-sided flank pain. Appears musculoskeletal. Rule out UTI. #5. Rule out CKD. Plan: I will decrease maintenance IV fluids to 75 mL an hour. Check urinalysis. Avoid nephrotoxic agents and hypotensive episodes. Hold lisinopril for now. Continue to hold diuretics for now. Repeat electrolytes in the morning. Strict I's and O's. Check postvoid residual and to insert Menjivar if greater than 250 mL present. Thank you for the consultation. I will continue to follow the patient with you during her hospital stay.
[2016-09-24 10:07] LABS: Basophils % (A) 1 %; CH 31.7; CHCM 35.1; Eosinophils # (A) 0.2 k/uL (0-0.7); Eosinophils % (A) 3 %; HDW 2.91; HGB 10.1 gm/dL (11.4-16.0); Luc # (Auto) 0.08; Luc % (Auto) 2; Lymphocytes # (A) 1.6 k/uL (1.0-4.8); Lymphocytes % (A) 32 %; MCH 31.6 pg (25.0-35.0); MCHC 34.9 g/dL (31.0-37.0); MCV 90.6 fL (80.0-100.0); Mean Platelet Volume 6.9; Monocytes # (A) 0.3 k/uL (0-1.0); Monocytes % (A) 5 %; Neutrophils % (A) 58 %; RDW 11.9 % (11.5-15.5); WBC 5.1 k/uL (3.8-10.6); WBC (Perox) 5.26
[2016-09-24] MEDS: SODIUM CHLORIDE 0.9% 1,000 ML IV SCH (10:15)
[2016-09-24 11:56] VITALS: BMI 31.6
[2016-09-24] MEDS: HYDROcodone/APAP 10-325MG 1 EACH TAB PO PRN ×2 (12:26→18:35)
[2016-09-24 12:39] LABS: Glucose,Whole Blood 242 mg/dL (75-99)
[2016-09-24 14:25] LABS: Hemoglobin A1C 8.7 % (4.2-6.1)
[2016-09-24 15:21] LABS: Appearance,Urine Clear (Clear); Bacteria,Urine Many /hpf; Bilirubin,Urine Negative (Negative); Glucose,Urine (UA) Negative (Negative); Ketones,Urine Negative (Negative); Leukocyte Esterase,Urine Negative (Negative); Mucus,Urine Rare /hpf; Nitrite,Urine Negative (Negative); Particle Count 5169; Protein,Urine Trace (Negative); RBC,Urine 1 /hpf (0-5); Specific Gravity,Urine 1.009 (1.001-1.035); Squamous Epithelial Cell,Urine 1 /hpf (0-4); UA Billing (MACRO vs. MICRO) MICRO; Urobilinogen,Urine <2.0 mg/dL (<2.0); WBC,Urine 2 /hpf (0-5)
--- NOTE | 2016-09-24 16:29 | P.HPIM ---
History of Present Illness H&P Date: 09/24/16 Chief Complaint: Right-sided rib pain Patient is a 61-year-old female, patient of Dr. Jairo Levi in the outpatient setting, with complex medical history noted below presenting to the emergency department with complaints of right-sided rib pain. Apparently her pain started as patient was reaching into a car to get some Kleenex and felt a snap. Rib pain became progressively worse over one day despite pain medication. Labs on admission with evidence of acute renal failure with creatinine of 5.8 and BUN of 87. EKG on admission with evidence of normal sinus rhythm. CT of abdomen and pelvis with no acute findings. X-ray of right ribs and chest x-ray no acute cardiopulmonary process with no acute displaced right-sided rib fractures. Patient was fluid resuscitated with 2 L of normal saline, given pain medicine, and admitted to the medical floor consult request for nephrology service. Patient has been evaluated by nephrology service, who is contributing acute kidney injury mostly to hypotension and diuretics with no evidence of hydronephrosis. Diuretics and lisinopril currently on hold. Upon examination, patient complains of feeling tired all the time. Patient reports occasional nausea with vomiting, none since admission. Denies shortness of breath or chest pain. Denies abdominal pain. Patient states he urinates approximately 2 times a day. Denies dysuria, hematuria, or urgency. Patient reports blood sugars well controlled at home but states she hasn't been eating much secondary to decreased appetite and not feeling good. Labs this morning hemoglobin 10.1 suspect secondary to dilution, creatinine decreased to 4.81, hemoglobin A1c 8.7. Blood pressure 101/53. Past Medical History Past Medical History: Asthma, Coronary Artery Disease (CAD), Chest Pain / Angina , Diabetes Mellitus, Eye Disorder, Fibromyalgia, GERD/Reflux, Hyperlipidemia, Hypertension, Myocardial Infarction ([place]), Osteoarthritis (OA), Pneumonia, Renal Disease, Syncope, Vascular Disorder Additional Past Medical History / Comment(s): IDDM type II with insulin pump. numbness and tingling bilateral feet, PAD. PAST FOOT ULCERS Carotid artery disease. anemia. 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 BRUISES EASILY. SHORT OF BREATH,BALANCE ISSUES AND LIGHTHEADED W/ ACTIVITY. Last Myocardial Infarction Date:: 02/12/2016 History of Any Multi-Drug Resistant Organisms: None Reported Past Surgical History: Adenoidectomy, AICD, Bariatric Surgery, Cholecystectomy, Heart Catheterization, Heart Catheterization With Stent, Hernia Repair, Joint Replacement, Tonsillectomy Additional Past Surgical History / Comment(s): 02-11-16 RT anterior tibial artery PTBA with post procedure hematoma, 01/16/16 L fem/pop arthrectomy with PTBA/stent. Peripheral angiogram, LT hand pinky finger amputated. L arm surgery for staph infection. 3 hernia repairs. hiatal hernia repair, lap band placed, removed, THEN gastric sleeve. bilateral cataract removal, XAVIER SHOULDER manipulation, lt elbow drained d/t staph infection 2005 Past Anesthesia/Blood Transfusion Reactions: Postoperative Nausea & Vomiting ( PONV) Additional Past Anesthesia/Blood Transfusion Reaction / Comment(s): LAST Blood Transfusion, 02/2016. Date of Last Stent Placement:: 02/2016 Type of Cardiac Device: AICD Device Placement Date:: Past Psychological History: Anxiety, Depression Additional Psychological History / Comment(s): She is getting around in a wheelchair now. Smoking Status: Former smoker Past Alcohol Use History: None Reported Additional Past Alcohol Use History / Comment(s): Pt started smoking at the age of 11 and quit smoking many yrs ago (before 1984). Past Drug Use History: None Reported - Past Family History Father Family Medical History: Vascular Disorder Additional Family Medical History / Comment(s): from vascular disorder Mother Family Medical History: Deep Vein Thrombosis (DVT) Medications and Allergies Home Medications Medication Instructions Recorded Confirmed Type Cholecalciferol [Vitamin D3] 2,000 unit PO DAILY 03/13/14 09/23/16 History Omeprazole [PriLOSEC] 40 mg PO AC-BRKFST 08/06/14 09/23/16 History Cyclobenzaprine [Flexeril] 10 mg PO HS 07/03/15 09/23/16 History HYDROcodone/APAP 10-325MG [[place] 1 tab PO Q6HR PRN 10/28/15 09/23/16 History 10-325] Sennosides/Docusate Sodium 1 tab PO DAILY 10/28/15 09/23/16 History [Lotus-Colace Tablet] INSULIN LISPRO (For Pump) [humaLOG 0.01 units SQ-PUMP CONTINUOUS 02/12/16 History (For Pump)] Rosuvastatin Calcium [Crestor] 40 mg PO DAILY 05/31/16 09/23/16 History Lisinopril [Zestril] 2.5 mg PO HS 07/13/16 09/23/16 History Escitalopram [Lexapro] 20 mg PO DAILY 09/23/16 09/23/16 History Metoprolol Succinate [Toprol XL] 25 mg PO DAILY 09/23/16 09/23/16 History Allergies Allergy/AdvReac Type Severity Reaction Status Date / Time adhesive tape Allergy Rash/Hives Verified 09/23/16 15:05 Penicillins Allergy Rash/Hives Verified 09/23/16 15:05 atorvastatin AdvReac Myalgia Verified 09/23/16 15:05 meperidine HCl [From Demerol] AdvReac Hallucinati Verified 09/23/16 15:05 ons Physical Exam Vitals: Vital Signs Temp Pulse Pulse Resp BP BP Pulse Ox 09/24/16 15:23 80/55 09/24/16 15:00 97.6 F 78 20 86/55 99 09/24/16 07:00 97.0 F L 73 19 101/53 98 09/23/16 23:00 97.6 F 64 17 124/63 96 09/23/16 21:05 77 92/56 09/23/16 18:29 96.5 F L 86 20 118/63 99 09/23/16 18:02 80 16 149/87 99 09/23/16 17:42 80 18 143/64 95 09/23/16 17:23 98.9 F 77 18 125/89 99 09/23/16 17:16 70 18 82/50 95 09/23/16 17:02 68 18 77/43 96 09/23/16 16:31 72 18 79/53 99 Intake and Output 09/24/16 09/24/16 09/24/16 06:59 14:59 22:59 Output Total 400 Balance -400 Output: Urine 400 Other: Voiding Method Toilet Toilet # Voids 1 1 Weight 86.183 kg Patient Weight 09/25/16 06:59 Weight 86.183 kg GENERAL: Pt awake and alert, well-nourished, and in no acute distress. HEAD: Atraumatic, normocephalic. EYES: Pupils equal, round, sclera anicteric, conjunctiva are normal. ENT: Moist mucous membranes. NECK: Supple without lymphadenopathy or JVD. LUNGS: Breath sounds diminished to auscultation bilaterally. No wheezes, rales , or rhonchi. HEART: Heart S1, S2, no S3 or S4. Regular rate and rhythm. No murmurs, rubs or gallops. ABDOMEN: Soft, nontender, nondistended, normoactive bowel sounds. No guarding, no rebound. No masses or organomegaly appreciated. EXTREMITIES: 1+ peripheral pulses. No edema. No calf tenderness. NEUROLOGICAL: Pt oriented x 3. No focal deficits noted. Strength and sensation grossly intact. PSYCH: Normal mood, normal affect. SKIN: Warm, dry, intact. Normal turgor. No rashes or lesions. Results CBC & Chem 7: 09/24/16 09:13 09/24/16 09:13 Labs: Abnormal Lab Results - Last 24 Hours (Table) 09/23/16 09/24/16 09/24/16 Range/Units 15:42 09:13 09:13 RBC 3.20 L (3.80-5.40) m/uL Hgb 10.1 L (11.4-16.0) gm/dL Hct 29.0 L (34.0-46.0) % Sodium 135 L (137-145) mmol/L Chloride (98-107) mmol/L Carbon Dioxide 20 L (22-30) mmol/L BUN 87 H* (7-17) mg/dL Creatinine 5.80 H* (0.52-1.04) mg/dL Glucose 102 H (74-99) mg/dL POC Glucose (mg/dL) (75-99) mg/dL Hemoglobin A1c 8.7 H (4.2-6.1) % Calcium (8.4-10.2) mg/dL Magnesium 2.8 H (1.6-2.3) mg/dL Urine Protein (Negative) Urine Blood (Negative) Urine Bacteria (None) /hpf Hyaline Casts (0-2) /lpf Urine Mucus (None) /hpf 09/24/16 09/24/16 09/24/16 Range/Units 09:13 12:28 14:55 RBC (3.80-5.40) m/uL Hgb (11.4-16.0) gm/dL Hct (34.0-46.0) % Sodium 135 L (137-145) mmol/L Chloride 108 H (98-107) mmol/L Carbon Dioxide 15 L (22-30) mmol/L BUN 76 H (7-17) mg/dL Creatinine 4.81 H (0.52-1.04) mg/dL Glucose 174 H (74-99) mg/dL POC Glucose (mg/dL) 242 H (75-99) mg/dL Hemoglobin A1c (4.2-6.1) % Calcium 8.2 L (8.4-10.2) mg/dL Magnesium (1.6-2.3) mg/dL Urine Protein Trace H (Negative) Urine Blood Trace H (Negative) Urine Bacteria Many H (None) /hpf Hyaline Casts 5 H (0-2) /lpf Urine Mucus Rare H (None) /hpf US - abdomen: report reviewed (No hydronephrosis seen on either side.) Thrombosis Risk Factor Assmnt - DVT/VTE Prophylaxis DVT/VTE Prophylaxis: Mechanical Prophylaxis ordered - Choose All That Apply Any of the Below Risk Factors Present?: Yes Each Factor Represents 1 point: Obesity (BMI >25) Other Risk Factors: Yes Each Risk Factor Represents 2 Points: Age 61-74 years Other congenital or acquired thrombophilia - If yes, enter type in comment: No Thrombosis Risk Factor Assessment Total Risk Factor Score: 3 Thrombosis Risk Factor Assessment Level: Moderate Risk Assessment and Plan Plan: Impression and plan: 1. Acute kidney injury suspect secondary to intravascular volume depletion secondary to hypotension and diuretics. Creatinine 5.8 on admission. No evidence of hydronephrosis. Nephrology service on consult, recommendations noted. Continue IV hydration. Avoid hypotensive episodeS and nephrotoxic agents. 2. Insulin-dependent diabetes mellitus. Patient has her own insulin pump. Consult wild animal caretaker. 3. Right-sided flank pain suspect musculoskeletal in nature. X-ray without evidence of fracture. Continue supportive treatment and pain management. 4. Severe ischemic cardiomyopathy and chronic systolic dysfunction status post single-chamber ICD placement. Continue aspirin and Plavix. 5. Coronary artery disease with previous heart catheterization and stent placement. 6. Hyperlipidemia. 7. Hypertension. Continue metoprolol. 8. Peripheral vascular disease. 9. Peripheral neuropathy suspect secondary to diabetes mellitus. 10. 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 11. Chronic kidney disease, stage 3. 12. Anemia suspect secondary to kidney disease. Continue to monitor patient. Continue current medications. Continue GI and DVT prophylaxis. Continue supportive treatment and pain management. Repeat CBC and BMP in a.m. Continue to follow with nephrology service. The above impression and plan have been discussed and directed by Dr. Levi. Verna MCFADDEN acting as scribe for Dr. Levi.
[2016-09-24 17:08] LABS: Glucose,Whole Blood 101 mg/dL (75-99)
[2016-09-24] MEDS: INSULIN LISPRO (For Pump) 100 UNIT/ML VIAL SQ-PUMP SCH (17:37)
[2016-09-24 21:08] LABS: Glucose,Whole Blood 117 mg/dL (75-99)
[2016-09-24] MEDS: CYCLOBENZAPRINE 10 MG TAB PO SCH (23:04)
[2016-09-25 02:13] LABS: Glucose,Whole Blood 90 mg/dL (75-99)
[2016-09-25] MEDS: SODIUM CHLORIDE 0.9% 1,000 ML IV SCH ×2 (06:08→14:39)
[2016-09-25] MEDS: CHOLECALCIFEROL 1,000 UNIT TAB PO SCH (07:24)
[2016-09-25] MEDS: CLOPIDOGREL 75 MG TAB PO SCH (07:24)
[2016-09-25] MEDS: SENNOSIDES-DOCUSATE SODIUM 1 EACH TAB PO SCH (07:25)
[2016-09-25] MEDS: ESCITALOPRAM 20 MG TAB PO SCH (07:25)
[2016-09-25] MEDS: SPIRONOLACTONE 25 MG TAB PO SCH (07:25)
[2016-09-25] MEDS: PANTOPRAZOLE 40 MG TABLET PO SCH (07:25)
[2016-09-25] MEDS: ASPIRIN 325 MG TAB PO SCH (07:25)
[2016-09-25] MEDS: METOPROLOL SUCCINATE (ER) 25 MG TAB.ER.24H PO SCH (07:25)
[2016-09-25 07:39] LABS: Glucose,Whole Blood 81 mg/dL (75-99)
--- NOTE | 2016-09-25 10:38 | P.PN ---
Subjective Patient is seen in follow-up for acute kidney injury. Her baseline creatinine in June 2016 was in the range of 1.6-1.8. It was 5.8 on admission and improved to 4.8 as of yesterday. Her diuretics were held and she is currently maintained on IV fluids with normal saline running at 75 mL an hour. She does of systolic CHF with ejection fraction of less than 20% and moderate mitral regurgitation and pulmonary hypertension. She was also hypotensive on admission which has improved. Her oral intake is fair. Admits to good urine output. No vomiting or diarrhea. Vital signs are stable. General: The patient appeared well nourished and normally developed. HEENT: Head exam is unremarkable. Neck is without jugular venous distension. LUNGS: Lungs are clear to auscultation and percussion. Breath sounds decreased. HEART: Rate and Rhythm are regular. First and second heart sounds normal. No murmurs, rubs or gallops. ABDOMEN: Abdominal exam reveals normal bowel sounds. Non-tender and non- distended. No evidence of peritonitis. EXTREMITITES: No clubbing, cyanosis, or edema. Objective - Vital Signs Vital signs: Vital Signs Temp 97.6 F 09/25/16 07:00 Pulse 73 09/25/16 07:00 Resp 20 09/25/16 07:00 BP 111/61 09/25/16 07:00 Pulse Ox 99 09/25/16 07:00 Intake & Output 09/24/16 09/25/16 09/25/16 18:59 06:59 18:59 Intake Total 800 240 Output Total 400 Balance -400 800 240 Weight 86.183 kg Intake: Oral 800 240 Output: Urine 400 Other: Voiding Method Toilet Toilet # Voids 1 1 - Labs CBC & Chem 7: 09/24/16 09:13 09/24/16 09:13 Labs: Abnormal Lab Results - Last 24 Hours (Table) 09/24/16 09/24/16 09/24/16 Range/Units 09:13 12:28 14:55 POC Glucose (mg/dL) 242 H (75-99) mg/dL Hemoglobin A1c 8.7 H (4.2-6.1) % Urine Protein Trace H (Negative) Urine Blood Trace H (Negative) Urine Bacteria Many H (None) /hpf Hyaline Casts 5 H (0-2) /lpf Urine Mucus Rare H (None) /hpf 09/24/16 09/24/16 Range/Units 17:06 21:03 POC Glucose (mg/dL) 101 H 117 H (75-99) mg/dL Hemoglobin A1c (4.2-6.1) % Urine Protein (Negative) Urine Blood (Negative) Urine Bacteria (None) /hpf Hyaline Casts (0-2) /lpf Urine Mucus (None) /hpf Assessment and Plan Plan: Assessment: #1. Nonoliguric acute kidney injury mostly prerenal in nature secondary to hypotension and diuretics leading to intravascular volume depletion. Creatinine 5.8 this admission. Improved to 4.8 as of yesterday. No evidence of hydronephrosis. Urinalysis quite benign. #2. Systolic CHF with ejection fraction of less than 20% with moderate mitral regurgitation and pulmonary hypertension. Compensated. #3. Insulin-dependent diabetes mellitus. #4. Right-sided flank pain. Appears musculoskeletal. Rule out UTI. #5. Rule out CKD. #6. Metabolic acidosis secondary to acute kidney injury. Plan: Continue normal saline to be run at 75 mL an hour. Avoid nephrotoxic agents and hypotensive episodes. Hold lisinopril for now. Continue to hold diuretics for now. Start oral sodium bicarbonate supplementation 1300 mg twice daily. Repeat electrolytes in the morning. .
[2016-09-25 11:24] LABS: Calcium 8.5 mg/dL (8.4-10.2)
[2016-09-25 11:27] LABS: Potassium 4.4 mmol/L (3.5-5.1)
[2016-09-25 12:31] LABS: Glucose,Whole Blood 129 mg/dL (75-99)
[2016-09-25] MEDS: HYDROcodone/APAP 10-325MG 1 EACH TAB PO PRN (12:33)
[2016-09-25 17:15] LABS: Glucose,Whole Blood 142 mg/dL (75-99)
--- NOTE | 2016-09-25 18:34 | PN ---
DATE OF SERVICE: 09/25/2016 INTERVAL HISTORY: Ms. Zafar is a 61-year-old female who is a patient of Dr. Jairo Levi in an outpatient setting with a complex medical history, admitted to the hospital with a chief complaint of right-sided rib pain. The patient states that she had this right-sided rib pain over the past 1 week. This was progressively getting worse, in spite of taking pain medications. At that time of admission when her labs are checked her creatinine was 5.8 and BUN of 87 and so she was admitted for acute kidney injury. Patient did have a CT scan of the abdomen and pelvis along with an x-ray of the right ribs chest x-ray that have been within normal limits. The patient is currently being treated with IV fluids for her acute kidney injury which is most likely due to hypotension and diuretics without any evidence of hydronephrosis. Today at the time of examination, the patient still complains of pain on the right side of her back. She states that it is deep inside which radiates toward her groin region and it pretty much stayed the same and she does have minimal relief with pain medications. REVIEW OF SYSTEMS: CONSTITUTIONAL: Denies having any fevers, chills or rigors. RESPIRATORY: No cough. No difficulty in breathing. CARDIOVASCULAR: No chest pain. No palpitations. GI: No abdominal pain, nausea, vomiting or diarrhea. : No dysuria or hematuria. Patient's medications have been reviewed. She is on: 1. Halsey. 2. Xanax. 3. Aspirin. 4. Vitamin D3. 5. Plavix. 6. Flexeril. 7. Lexapro. 8. Dilaudid. 9. Insulin pump. 10. Metoprolol. 11. Crestor. 12. Protonix and 13. Normal saline at the rate of 75 mL per hour. Patient's vitals: Temperature 97.6, heart rate 73, respiratory rate 20, blood pressure 111/61, saturating at 99% on room air. GENERAL: Patient is morbidly obese, lying in bed. She appears to be in some discomfort due to the ongoing low back pain. HEAD: Atraumatic, normocephalic. EYES: Pupils round and reactive to light. No pallor. No icterus. NECK: No JVD. No thyromegaly. CARDIOVASCULAR: S1, S2 heard. Decreased breath sounds at the lower lung bases. ABDOMEN: Soft, nontender, nondistended. Normal bowel sounds. Patient does complain of some tenderness on deep palpation in the right lower abdominal quadrant. INFORMATICA MDM DEVELOPER: Alert, awake, oriented x3. No focal neurological deficits. PSYCHIATRIC: Appropriate mood and affect. SKIN: No rashes. Patient's labs: White count of 5.1, hemoglobin is 10 and platelets of 163. Sodium is 139, potassium 4.4, chloride 112, bicarb 17, BUN 60 creatinine 3.53. ASSESSMENT AND PLAN: 1. Acute kidney injury suspected due to depletion of intravascular volume due to hypotension and diuretics. Creatinine is slowly trending up. It is 3.7 today. Nephrology on board and following the patient. 2. Insulin-dependent diabetes mellitus. Will continue with the patient's own insulin pump. 3. Right-sided flank pain, most likely musculoskeletal in nature. The x-ray did not show any evidence of fracture and the CT scan is within normal limits. Continue with supportive treatment and pain management. 4. Severe ischemic cardiomyopathy and chronic diastolic dysfunction, status post single-chamber automatic implantable cardioverter-defibrillator placement. Continue with home medication regimen. 5. Coronary artery disease with stent placement in the past. 6. Hypertension. 7. Hyperlipidemia. 8. Peripheral vascular disease. 9. Peripheral neuropathy secondary to diabetes mellitus. 10. 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 11. Chronic kidney disease stage 3. 12. Anemia, most likely secondary to chronic kidney disease. PLAN: The plan is to continue the patient on IV hydration. Creatinine is slowly trending down. Her pain in the right flank region is most likely musculoskeletal in nature, as the x-rays and the CT scan are within normal limits and have not shown any acute underlying process. Will continue with the rest of her current medication regimen and further recommendations to follow, depending on the progress of the patient.
[2016-09-25] MEDS: INSULIN LISPRO (For Pump) 100 UNIT/ML VIAL SQ-PUMP SCH (18:42)
[2016-09-25] MEDS: CYCLOBENZAPRINE 10 MG TAB PO SCH (20:35)
[2016-09-25] MEDS: SODIUM BICARBONATE TAB 650 MG TAB PO SCH (20:36)
[2016-09-25 21:06] LABS: Glucose,Whole Blood 123 mg/dL (75-99)
[2016-09-26 02:05] LABS: Glucose,Whole Blood 103 mg/dL (75-99)
[2016-09-26] MEDS: SODIUM CHLORIDE 0.9% 1,000 ML IV SCH ×2 (05:09→17:10)
[2016-09-26 07:33] LABS: Glucose,Whole Blood 85 mg/dL (75-99)
[2016-09-26] MEDS: ASPIRIN 325 MG TAB PO SCH (07:47)
[2016-09-26] MEDS: CHOLECALCIFEROL 1,000 UNIT TAB PO SCH (07:47)
[2016-09-26] MEDS: SODIUM BICARBONATE TAB 650 MG TAB PO SCH ×2 (07:47→19:58)
[2016-09-26] MEDS: SENNOSIDES-DOCUSATE SODIUM 1 EACH TAB PO SCH (07:47)
[2016-09-26] MEDS: PANTOPRAZOLE 40 MG TABLET PO SCH (07:47)
[2016-09-26] MEDS: ESCITALOPRAM 20 MG TAB PO SCH (07:48)
[2016-09-26] MEDS: CLOPIDOGREL 75 MG TAB PO SCH (07:48)
[2016-09-26] MEDS: METOPROLOL SUCCINATE (ER) 25 MG TAB.ER.24H PO SCH (08:17)
[2016-09-26] MEDS: NON-FORMULARY DRUG (Rosuvastatin Calcium [Crestor] 40 MG) PO SCH ×2 (09:25→09:26)
[2016-09-26 09:57] LABS: Calcium 8.5 mg/dL (8.4-10.2); Potassium 4.4 mmol/L (3.5-5.1)
--- NOTE | 2016-09-26 10:58 | P.PN ---
Subjective Patient is seen in follow-up for acute kidney injury. Her baseline creatinine in June 2016 was in the range of 1.6-1.8. It was 5.8 on admission and improved to 2.73 today. Her diuretics are held and she is currently maintained on IV fluids with normal saline running at 75 mL an hour. She does of systolic CHF with ejection fraction of less than 20% and moderate mitral regurgitation and pulmonary hypertension. BP continue to remain on lower side. Her oral intake is fair. Admits to good urine output. No vomiting or diarrhea. Vital signs are stable. General: The patient appeared well nourished and normally developed. HEENT: Head exam is unremarkable. Neck is without jugular venous distension. LUNGS: Lungs are clear to auscultation and percussion. Breath sounds decreased. HEART: Rate and Rhythm are regular. First and second heart sounds normal. No murmurs, rubs or gallops. ABDOMEN: Abdominal exam reveals normal bowel sounds. Non-tender and non- distended. No evidence of peritonitis. EXTREMITITES: No clubbing, cyanosis, or edema. He is Objective - Vital Signs Vital signs: Vital Signs Temp 97.7 F 09/26/16 07:00 Pulse 77 09/26/16 07:00 Resp 20 09/26/16 07:00 BP 108/51 09/26/16 08:47 Pulse Ox 98 09/26/16 07:00 Intake & Output 09/25/16 09/26/16 09/26/16 18:59 06:59 18:59 Intake Total 720 420 240 Output Total 800 Balance 720 -380 240 Intake: Oral 720 420 240 Output: Urine 800 Other: Voiding Method Toilet Toilet # Voids 3 0 - Labs CBC & Chem 7: 09/24/16 09:13 09/26/16 08:18 Labs: Abnormal Lab Results - Last 24 Hours (Table) 09/25/16 09/25/16 09/25/16 Range/Units 10:18 12:26 17:12 Chloride 112 H (98-107) mmol/L Carbon Dioxide 17 L (22-30) mmol/L BUN 60 H (7-17) mg/dL Creatinine 3.53 H (0.52-1.04) mg/dL Glucose 122 H (74-99) mg/dL POC Glucose (mg/dL) 129 H 142 H (75-99) mg/dL 09/25/16 09/26/16 09/26/16 Range/Units 21:03 01:56 08:18 Chloride 113 H (98-107) mmol/L Carbon Dioxide 18 L (22-30) mmol/L BUN 45 H (7-17) mg/dL Creatinine 2.73 H (0.52-1.04) mg/dL Glucose 152 H (74-99) mg/dL POC Glucose (mg/dL) 123 H 103 H (75-99) mg/dL Assessment and Plan Plan: Assessment: #1. Nonoliguric acute kidney injury mostly prerenal in nature secondary to hypotension and diuretics leading to intravascular volume depletion. Creatinine 5.8 this admission. Improved to 2.73. No evidence of hydronephrosis. Urinalysis quite benign. #2. Systolic CHF with ejection fraction of less than 20% with moderate mitral regurgitation and pulmonary hypertension. Compensated. #3. Insulin-dependent diabetes mellitus. #4. Right-sided flank pain. Appears musculoskeletal. Rule out UTI. #5. Rule out CKD. #6. Metabolic acidosis secondary to acute kidney injury. #7. Hypotension likely related to her underlying cardiac status and intravascular volume depletion. Rule out adrenal insufficiency. Plan: Continue normal saline to be run at 75 mL an hour. Avoid nephrotoxic agents and hypotensive episodes. Hold lisinopril for now. Continue to hold diuretics for now. Continue oral sodium bicarbonate supplementation 1300 mg twice daily. Check cortisol level. Repeat electrolytes in the morning. .
[2016-09-26 12:16] LABS: Glucose,Whole Blood 136 mg/dL (75-99)
[2016-09-26] MEDS: HYDROcodone/APAP 10-325MG 1 EACH TAB PO PRN (15:06)
[2016-09-26] MEDS ORDERED: BACLOFEN 10 MG TAB PO PRN (16:56)
[2016-09-26 17:13] LABS: Glucose,Whole Blood 105 mg/dL (75-99)
--- NOTE | 2016-09-26 17:33 | PN ---
DATE OF SERVICE: 09/26/2016 INTERVAL HISTORY: Ms. Zafar is a 61-year-old female with past medical history of multiple medical issues admitted to the hospital with a chief complaint of right sided rib pain, which has been going on and off for the past one week. At the time f admission, patient's creatinine was found to be 5.8 acute renal failure and she is being treated for it. Patient had a CT scan of the abdomen and pelvis along with x-rays of the right ribs and a chest x-ray that had been within normal limits. The patient still complains of pain on the right side of her back that is radiating to the front and she states that it is worse when she takes in a deep, but no difficulty in breathing. No cough. She does not have any active complaints. REVIEW OF SYSTEMS: CONSTITUTIONAL: Denies having fevers, chills, or rigors. RESPIRATORY: No cough. No difficulty in breathing. CARDIOVASCULAR: No chest pain or palpitations. GI: No abdominal pain, nausea, vomiting, or diarrhea. : No dysuria. No hematuria. Patient's medications have been reviewed. On examination, patient's vital signs temperature 97.6, heart rate 79, respiratory 20, blood pressure 104/50, saturating at 99% on room air. GENERAL EXAMINATION: Morbidly obese female, lying in bed, appears to be in no acute distress. Head atraumatic. Normocephalic. EYES: Pupils equal, round and reactive to light. No pallor. No icterus. NECK: No JVD. No thyromegaly. CARDIOVASCULAR: S1, S2 heard. LUNGS: Decreased breath sounds at the lower lung bases. ABDOMEN: Soft, nontender, nondistended. Normal bowel sounds. Examination of the back: Positive for tenderness on deep palpation of the back but no warmth or erythema could be appreciated. LITIGATION COORDINATOR: Alert, awake, oriented x3. No focal neurological deficits. PSYCHIATRIC: Appropriate mood and affect. SKIN: No rash. The patient's labs: sodium 141, potassium 4.4, chloride 113, bicarb 18, BUN 45, creatinine 2.73. ASSESSMENT AND PLAN: 1. Acute kidney injury suspected due to depletion of intravascular volume due to hypertension and diuretics. Creatinine is slowly trending up, it is to 0.73 today. Nephrology on board and following the patient. 2. Insulin-dependent diabetes mellitus, continue with the patient's insulin pump. 3. Right sided flank pain, most likely musculoskeletal in nature. The x-rays and CT scan show no evidence of fracture. Continue with supportive treatment and pain management and severe ischemic cardiomyopathy and chronic diastolic dysfunction, status post single chamber AICD placement. 4. Continue with home medications. 5. Coronary artery disease with stent placement in the past. 6. Hypertension. 7. Hyperlipidemia. 8. Peripheral vascular disease. 9. Peripheral neuropathy secondary to diabetes mellitus. 10. 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 11. Chronic kidney disease Stage III. 12. Anemia, most likely chronic kidney disease. PLAN: The plan is to continue the patient on IV fluids. Creatinine is slowly trending down. Patient still complains of right sided underlying pain which is mostly musculoskeletal in origin and aggravated by taking deep breaths and on deep palpation. The patient is on baclofen. We will increase the dose to 2 times a day and continue with the rest of current medication regimen and further recommendations to follow depending on the progress of the patient.
[2016-09-26] MEDS: CYCLOBENZAPRINE 10 MG TAB PO SCH (19:58)
[2016-09-26] MEDS: INSULIN LISPRO (For Pump) 100 UNIT/ML VIAL SQ-PUMP SCH (19:59)
[2016-09-26 21:03] LABS: Glucose,Whole Blood 108 mg/dL (75-99)
[2016-09-27 02:23] LABS: Glucose,Whole Blood 101 mg/dL (75-99)
[2016-09-27] MEDS: SODIUM CHLORIDE 0.9% 1,000 ML IV SCH (05:41)
[2016-09-27 07:12] LABS: Glucose,Whole Blood 79 mg/dL (75-99)
[2016-09-27 07:40] VITALS: BP 133/70; PULSE 88; RESP 17; TEMP 98.2
[2016-09-27] MEDS: INSULIN LISPRO (For Pump) 100 UNIT/ML VIAL SQ-PUMP SCH (08:17)
[2016-09-27] MEDS: ASPIRIN 325 MG TAB PO SCH (08:20)
[2016-09-27] MEDS: CHOLECALCIFEROL 1,000 UNIT TAB PO SCH (08:20)
[2016-09-27] MEDS: CLOPIDOGREL 75 MG TAB PO SCH (08:20)
[2016-09-27] MEDS: METOPROLOL SUCCINATE (ER) 25 MG TAB.ER.24H PO SCH (08:20)
[2016-09-27] MEDS: PANTOPRAZOLE 40 MG TABLET PO SCH (08:20)
[2016-09-27] MEDS: SODIUM BICARBONATE TAB 650 MG TAB PO SCH (08:20)
[2016-09-27] MEDS: ESCITALOPRAM 20 MG TAB PO SCH (08:20)
[2016-09-27] MEDS: HYDROcodone/APAP 10-325MG 1 EACH TAB PO PRN (08:23)
[2016-09-27] MEDS: SENNOSIDES-DOCUSATE SODIUM 1 EACH TAB PO SCH (08:23)
[2016-09-27 09:18] LABS: Calcium 8.4 mg/dL (8.4-10.2); Potassium 4.5 mmol/L (3.5-5.1)
[2016-09-27 09:29] LABS: Basophils % (A) 1 %; CH 31.6; CHCM 34.5; Eosinophils # (A) 0.2 k/uL (0-0.7); Eosinophils % (A) 4 %; HCT 29.1 % (34.0-46.0); HDW 2.75; HGB 9.7 gm/dL (11.4-16.0); Luc % (Auto) 2; Lymphocytes # (A) 2.1 k/uL (1.0-4.8); Lymphocytes % (A) 41 %; MCH 30.9 pg (25.0-35.0); MCHC 33.5 g/dL (31.0-37.0); MCV 92.1 fL (80.0-100.0); Mean Platelet Volume 6.8; Monocytes # (A) 0.3 k/uL (0-1.0); Monocytes % (A) 5 %; Neutrophils # (A) 2.4 k/uL (1.3-7.7); Neutrophils % (A) 48 %; RBC 3.16 m/uL (3.80-5.40); RDW 12.4 % (11.5-15.5); WBC 5.1 k/uL (3.8-10.6); WBC (Perox) 5.31
--- NOTE | 2016-09-27 10:19 | P.PN ---
Subjective Patient is seen in follow-up for acute kidney injury. Her baseline creatinine in June 2016 was in the range of 1.6-1.8. It was 5.8 on admission and improved to 2.11 today. Her diuretics are held and she is currently maintained on IV fluids with normal saline running at 75 mL an hour. She does of systolic CHF with ejection fraction of less than 20% and moderate mitral regurgitation and pulmonary hypertension. BP continue to remain on lower side. Her oral intake is fair. Admits to good urine output. No vomiting or diarrhea. Complaining of mild headache. Vital signs are stable. General: The patient appeared well nourished and normally developed. HEENT: Head exam is unremarkable. Neck is without jugular venous distension. LUNGS: Lungs are clear to auscultation and percussion. Breath sounds decreased. HEART: Rate and Rhythm are regular. First and second heart sounds normal. No murmurs, rubs or gallops. ABDOMEN: Abdominal exam reveals normal bowel sounds. Non-tender and non- distended. No evidence of peritonitis. EXTREMITITES: No clubbing, cyanosis, or edema. Objective - Vital Signs Vital signs: Vital Signs Temp 98.2 F 09/27/16 07:00 Pulse 88 09/27/16 07:00 Resp 17 09/27/16 07:00 BP 133/70 09/27/16 07:00 Pulse Ox 98 09/27/16 07:00 Intake & Output 09/26/16 09/27/16 09/27/16 18:59 06:59 18:59 Intake Total 720 Output Total 500 800 Balance 220 -800 Intake: Oral 720 Output: Urine 500 800 Other: Voiding Method Toilet # Voids 3 2 - Labs CBC & Chem 7: 09/27/16 08:15 09/27/16 08:15 Labs: Abnormal Lab Results - Last 24 Hours (Table) 09/26/16 09/26/16 09/26/16 Range/Units 12:11 17:06 21:02 RBC (3.80-5.40) m/uL Hgb (11.4-16.0) gm/dL Hct (34.0-46.0) % Chloride (98-107) mmol/L Carbon Dioxide (22-30) mmol/L BUN (7-17) mg/dL Creatinine (0.52-1.04) mg/dL POC Glucose (mg/dL) 136 H 105 H 108 H (75-99) mg/dL 09/27/16 09/27/16 09/27/16 Range/Units 02:21 08:15 08:15 RBC 3.16 L (3.80-5.40) m/uL Hgb 9.7 L (11.4-16.0) gm/dL Hct 29.1 L (34.0-46.0) % Chloride 113 H (98-107) mmol/L Carbon Dioxide 20 L (22-30) mmol/L BUN 33 H (7-17) mg/dL Creatinine 2.11 H (0.52-1.04) mg/dL POC Glucose (mg/dL) 101 H (75-99) mg/dL Assessment and Plan Plan: Assessment: #1. Nonoliguric acute kidney injury mostly prerenal in nature secondary to hypotension and diuretics leading to intravascular volume depletion. Creatinine 5.8 this admission. Improved to 2.11. No evidence of hydronephrosis. Urinalysis quite benign. #2. Systolic CHF with ejection fraction of less than 20% with moderate mitral regurgitation and pulmonary hypertension. Compensated. #3. Insulin-dependent diabetes mellitus. #4. Right-sided flank pain. Appears musculoskeletal. No evidence of UTI. #5. Rule out CKD. #6. Metabolic acidosis secondary to acute kidney injury. Improving. #7. Hypotension likely related to her underlying cardiac status and intravascular volume depletion. Cortisol level 12. Plan: Continue normal saline to be run at 75 mL an hour. Avoid nephrotoxic agents and hypotensive episodes. Hold lisinopril for now. Continue to hold diuretics for now. Continue oral sodium bicarbonate supplementation 1300 mg twice daily. Repeat electrolytes in the morning. Stable to be discharged home from nephrology standpoint. I advised her to hold diuretics for the next 2-3 days and resume 40 mg once daily of Lasix if notices worsening of swelling and weight gain. She is to get a basic metabolic panel checked within 2-3 days of discharge and follow-up as an outpatient in the next 1-2 weeks. .
[2016-09-27 11:22] LABS: Glucose,Whole Blood 130 mg/dL (75-99)
--- NOTE | 2016-09-27 12:53 | P.DS ---
Providers Date of admission: 09/23/16 16:19 Expected date of discharge: 09/27/16 Attending physician: Jairo Levi Consults: 09/23/16 16:19 Consult Physician Urgent Consulting Provider: Augustina Nieves Consult Reason/Comments: afrf Do you want consulting provider notified?: Yes Primary care physician: Jairo Levi [facility] Course: Patient is a 61-year-old female, patient of Dr. Jairo Levi in the outpatient setting, with complex medical history admitted to the hospital with chief complaint of right-sided rib pain ongoing one week prior to admission. At the time of admission, patient was found to be in acute renal failure with a creatinine of 5.8. Patient had a computed tomography scan of the abdomen and pelvis along with x-rays of the right ribs and a chest x-ray that were unremarkable. Ultrasound of kidneys negative for hydronephrosis. Urinalysis was benign. Patient was evaluated by nephrology service who felt patient's acute kidney injury secondary to depletion of intravascular volume due to hypotension and diuretics. Patient improved significantly with IV hydration and discontinuation of antihypertensives and diuretics. Patient was felt stable for discharge to home from a nephrology and medical standpoint. Patient was given prescription to get a basic metabolic panel checked this week and resume Lasix 40 mg in 2-3 days if her leg started swelling. Patient instructed to follow-up with Dr. Levi and nephrology in the outpatient setting. Discharge diagnoses: 1. Acute kidney injury suspect due to depletion of intravascular volume due to hypotension and diuretics. 2. Insulin-dependent diabetes mellitus. 3. Right-sided flank pain, most likely musculoskeletal in nature. 4. Severe ischemic cardiomyopathy and chronic diastolic dysfunction, status post single-chamber AICD placement. 5. Coronary artery disease with stent placement in the past. 6. Hypertension. 7. Hyperlipidemia. 8. Peripheral vascular disease. 9. Peripheral neuropathy secondary to diabetes mellitus. 10. Bilateral foot neuropathic secondary to diabetes mellitus. 11. Chronic kidney disease stage III. 12. Anemia suspect secondary to chronic kidney disease. The above impression and plan have been discussed and directed by Dr Levi. Verna RAMOS-Jason acting as scribe for Dr. Levi. Pertinent Studies: EKG; abdomen/pelvis CT; ribs with chest x-ray; abdomen/bladder ultrasound Patient Condition at Discharge: Good Plan - Discharge Summary New Discharge Prescriptions: Furosemide [Lasix] 40 mg PO DAILY #30 tablet Sodium Bicarbonate Tab 1,300 mg PO BID #120 tab Discharge Medication List Cholecalciferol [Vitamin D3] 2,000 unit PO DAILY 03/13/14 [History] Omeprazole [PriLOSEC] 40 mg PO AC-BRKFST 08/06/14 [History] Cyclobenzaprine [Flexeril] 10 mg PO HS 07/03/15 [History] HYDROcodone/APAP 10-325MG [Mcallen 10-325] 1 tab PO Q6HR PRN 10/28/15 [History] Sennosides/Docusate Sodium [Lotus-Colace Tablet] 1 tab PO DAILY 10/28/15 [History ] Clopidogrel [Plavix] 75 mg PO DAILY #90 tab 01/17/16 [Rx] INSULIN LISPRO (For Pump) [humaLOG (For Pump)] 0.01 units SQ-PUMP CONTINUOUS 10/22 [History] Nitroglycerin Sl Tabs [Nitrostat] 0.4 mg SUBLINGUAL Q5M PRN #25 tab 02/18/16 [Rx ] ALPRAZolam [Xanax] 0.25 mg PO TID PRN #21 tab 02/27/16 [Rx] Aspirin 325 mg PO DAILY #30 tab 02/27/16 [Rx] Escitalopram [Lexapro] 20 mg PO DAILY 09/23/16 [History] Metoprolol Succinate [Toprol XL] 25 mg PO DAILY 09/23/16 [History] Furosemide [Lasix] 40 mg PO DAILY #30 tablet 09/27/16 [Rx] Sodium Bicarbonate Tab 1,300 mg PO BID #120 tab 09/27/16 [Rx] Follow up Appointment(s)/Referral(s): Toñito Nagel MD [STAFF PHYSICIAN] - 2 Weeks Jairo Lvei DO [Primary Care Provider] - 1-2 days Lance East DO [STAFF PHYSICIAN] - 1 Week Ambulatory/Diagnostic Orders: Basic Metabolic Panel [LAB.AMB] Time Frame: 10/01/16, Location: Determined By Patient Patient Instructions/Handouts: Acute Kidney Injury (DC) Activity/Diet/Wound Care/Special Instructions: HOLD ANTIHYPERTENSIVES AND DIURETICS FOR 3 DAYS THEN RESUME. GET BLOOD WORK DONE in 3 DAYS. Discharge Disposition: HOME SELF-CARE
== END 2016-09-27 14:11 | disposition home or self-care (01) | DRG 683 ==
LOC: EC 13:31 → 4MS4W 16:19
PROVIDERS: ADMIT Family Medicine; ATTEND Family Medicine
DX: N17.9 Acute kidney failure, unspecified (principal); I13.0 Hypertensive heart and chronic kidney disease with heart failure and stage 1 through stage 4 chronic kidney disease, or unspecified chronic kidney disease; E87.2 Acidosis; I50.22 Chronic systolic (congestive) heart failure; I95.9 Hypotension, unspecified; E11.22 Type 2 diabetes mellitus with diabetic chronic kidney disease; D63.1 Anemia in chronic kidney disease; N18.3 Chronic kidney disease, stage 3 (moderate); E11.42 Type 2 diabetes mellitus with diabetic polyneuropathy; E11.51 Type 2 diabetes mellitus with diabetic peripheral angiopathy without gangrene; I27.2 Other secondary pulmonary hypertension; E11.319 Type 2 diabetes mellitus with unspecified diabetic retinopathy without macular edema; E78.5 Hyperlipidemia, unspecified; E86.9 Volume depletion, unspecified; F32.9 Major depressive disorder, single episode, unspecified; F41.9 Anxiety disorder, unspecified; I25.10 Atherosclerotic heart disease of native coronary artery without angina pectoris; I25.2 Old myocardial infarction; I25.5 Ischemic cardiomyopathy; I34.0 Nonrheumatic mitral (valve) insufficiency; J45.909 Unspecified asthma, uncomplicated; K21.9 Gastro-esophageal reflux disease without esophagitis; M79.7 Fibromyalgia; R10.9 Unspecified abdominal pain; M19.90 Unspecified osteoarthritis, unspecified site; T50.2X5A Adverse effect of carbonic-anhydrase inhibitors, benzothiadiazides and other diuretics, initial encounter; E86.0 Dehydration; I77.89 Other specified disorders of arteries and arterioles; Z79.02 Long term (current) use of antithrombotics/antiplatelets; Z79.82 Long term (current) use of aspirin; Z79.899 Other long term (current) drug therapy; Z96.41 Presence of insulin pump (external) (internal); Z88.0 Allergy status to penicillin; Z88.8 Allergy status to other drugs, medicaments and biological substances; Z87.891 Personal history of nicotine dependence; Z95.5 Presence of coronary angioplasty implant and graft; Z95.810 Presence of automatic (implantable) cardiac defibrillator; Z98.84 Bariatric surgery status; Z96.60 Presence of unspecified orthopedic joint implant; Y92.009 Unspecified place in unspecified non-institutional (private) residence as the place of occurrence of the external cause
CPT/HCPCS: 36415; 74176; 76770; 80048; 80053; 81001; 82533; 82550; 82553; 83036; 83690; 83735; 84484; 85025; 85610; 85730; 93005; 96361; 96372; 96374; 96375; 99285

== ENCOUNTER → 2016-10-01 | Outpatient (CLI) | payer MEDICARE ==
[2016-10-01 14:15] LABS: Calcium 8.7 mg/dL (8.4-10.2); Potassium 4.4 mmol/L (3.5-5.1)
== END | disposition home or self-care (01) ==
LOC: LABWHC1 13:33
PROVIDERS: ATTEND Nurse Practitioner
DX: N19 Unspecified kidney failure (principal)
CPT/HCPCS: 36415; 80048

== ENCOUNTER → 2016-10-13 | Outpatient (CLI) | payer MEDICARE ==
--- NOTE | 2016-10-15 08:17 | MM ---
Reason for exam: screening (asymptomatic). Last mammogram was performed 2 years and 6 months ago. History: Patient is postmenopausal and is nulliparous. Family history of breast cancer in maternal cousin and breast cancer in maternal grandmother. Benign excisional biopsy of the right breast. Physical Findings: A clinical breast exam by your physician is recommended on an annual basis and results should be correlated with mammographic findings. MG 3D Screening Mammo W/Cad Bilateral CC and MLO view(s) were taken. Prior study comparison: April 03, 2014, bilateral MG screening mammo w CAD. September 24, 2011, bilateral digital screening mammo w/CAD. September 02, 2010, bilateral digital screening mammo w/CAD. There are scattered fibroglandular densities. There is chronic nodularity in the right breast. Pacemaker projecting over the left pectoralis muscle. No significant changes when compared with prior studies. ASSESSMENT: Negative, BI-RAD 1 RECOMMENDATION: Routine screening mammogram of both breasts in 1 year. ANNEL
== END | disposition home or self-care (01) ==
LOC: RADMAMWWP 14:32
PROVIDERS: ATTEND Family Medicine
DX: Z12.31 Encounter for screening mammogram for malignant neoplasm of breast (principal)
CPT/HCPCS: 77063; G0202

== ENCOUNTER 2016-10-22 12:34 | Emergency (ER) | payer MEDICARE ==
[2016-10-22] MEDS ORDERED: IPRATROPIUM-ALBUTEROL 3 ML NEB INHALATION STA (12:53)
--- NOTE | 2016-10-22 12:56 | ED ---
General Adult HPI - General Chief complaint: Upper Respiratory Infection Stated complaint: Cough Time Seen by Provider: 10/22/16 12:44 Source: patient, family, RN notes reviewed Mode of arrival: wheelchair Limitations: no limitations - History of Present Illness Initial comments: Patient is a pleasant 61-year-old female presenting to the emergency department complaining of cough. Symptoms present for several days. Patient does have occasional greenish sputum. Patient has been fatigued, especially today. No fever. Patient does feel somewhat short of breath. No chest pain or leg swelling. - Related Data Home Medications Medication Instructions Recorded Confirmed Cholecalciferol [Vitamin D3] 2,000 unit PO DAILY 03/13/14 10/22/16 Omeprazole [PriLOSEC] 40 mg PO AC-BRKFST 08/06/14 10/22/16 Cyclobenzaprine [Flexeril] 10 mg PO HS 07/03/15 10/22/16 HYDROcodone/APAP 10-325MG [[place] 1 tab PO Q6HR PRN 10/28/15 10/22/16 10-325] Sennosides/Docusate Sodium 1 tab PO DAILY 10/28/15 10/22/16 [Lotus-Colace Tablet] INSULIN LISPRO (For Pump) [humaLOG 0.01 units SQ-PUMP CONTINUOUS 02/12/16 (For Pump)] Escitalopram [Lexapro] 20 mg PO DAILY 09/23/16 10/22/16 Metoprolol Succinate [Toprol XL] 25 mg PO DAILY 09/23/16 10/22/16 Furosemide [Lasix] 40 mg PO BID 10/22/16 10/22/16 Lisinopril [Zestril] 2.5 mg PO HS 10/22/16 10/22/16 Rosuvastatin Calcium 40 mg PO HS 10/22/16 10/22/16 Previous Rx's Medication Instructions Recorded Clopidogrel [Plavix] 75 mg PO DAILY #90 tab 01/17/16 Nitroglycerin Sl Tabs [Nitrostat] 0.4 mg SUBLINGUAL Q5M PRN #25 tab 02/18/16 ALPRAZolam [Xanax] 0.25 mg PO TID PRN #21 tab 02/27/16 Aspirin 325 mg PO DAILY #30 tab 02/27/16 Sodium Bicarbonate Tab 1,300 mg PO BID #120 tab 09/27/16 Albuterol Inhaler [Ventolin Hfa 2 puff INHALATION Q4HR PRN #1 10/22/16 Inhaler] inhaler Azithromycin [Zithromax Z-pack] 250 mg PO DIRECTED #6 tab 10/22/16 guaiFENesin-Coden 100-10MG/5ML 10 ml PO Q6HR PRN #250 ml 10/22/16 [Robitussin AC] Allergies Allergy/AdvReac Type Severity Reaction Status Date / Time adhesive tape Allergy Rash/Hives Verified 10/22/16 14:08 Penicillins Allergy Rash/Hives Verified 10/22/16 14:08 atorvastatin AdvReac Myalgia Verified 10/22/16 14:08 hydromorphone [From Dilaudid] AdvReac Unknown Verified 10/22/16 14:08 meperidine HCl [From Demerol] AdvReac Hallucinati Verified 10/22/16 14:08 ons Review of Systems ROS Statement: Those systems with pertinent positive or pertinent negative responses have been documented in the HPI. ROS Other: All systems not noted in ROS Statement are negative. Constitutional: Denies: fever Eyes: Denies: eye pain ENT: Denies: ear pain Respiratory: Reports: cough, dyspnea Cardiovascular: Denies: chest pain Endocrine: Reports: fatigue Gastrointestinal: Denies: abdominal pain Genitourinary: Denies: urgency Musculoskeletal: Denies: back pain Skin: Denies: rash Neurological: Denies: weakness Past Medical History Past Medical History: Asthma, Coronary Artery Disease (CAD), Chest Pain / Angina , Diabetes Mellitus, Eye Disorder, Fibromyalgia, GERD/Reflux, Hyperlipidemia, Hypertension, Myocardial Infarction ([place]), Osteoarthritis (OA), Pneumonia, Renal Disease, Syncope, Vascular Disorder Additional Past Medical History / Comment(s): IDDM type II with insulin pump. numbness and tingling bilateral feet, PAD. PAST FOOT ULCERS Carotid artery disease. anemia. 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 BRUISES EASILY. SHORT OF BREATH,BALANCE ISSUES AND LIGHTHEADED W/ ACTIVITY. Last Myocardial Infarction Date:: 02/12/2016 History of Any Multi-Drug Resistant Organisms: None Reported Past Surgical History: Adenoidectomy, AICD, Bariatric Surgery, Cholecystectomy, Heart Catheterization, Heart Catheterization With Stent, Hernia Repair, Joint Replacement, Tonsillectomy Additional Past Surgical History / Comment(s): 02-11-16 RT anterior tibial artery PTBA with post procedure hematoma, 01/16/16 L fem/pop arthrectomy with PTBA/stent. Peripheral angiogram, LT hand pinky finger amputated. L arm surgery for staph infection. 3 hernia repairs. hiatal hernia repair, lap band placed, removed, THEN gastric sleeve. bilateral cataract removal, XAVIER SHOULDER manipulation, lt elbow drained d/t staph infection 2005 Past Anesthesia/Blood Transfusion Reactions: Postoperative Nausea & Vomiting ( PONV) Additional Past Anesthesia/Blood Transfusion Reaction / Comment(s): LAST Blood Transfusion, 02/2016. Date of Last Stent Placement:: 02/2016 Type of Cardiac Device: AICD Device Placement Date:: Past Psychological History: Anxiety, Depression Smoking Status: Former smoker Past Alcohol Use History: None Reported Past Drug Use History: None Reported - Past Family History Father Family Medical History: Vascular Disorder Additional Family Medical History / Comment(s): from vascular disorder Mother Family Medical History: Deep Vein Thrombosis (DVT) General Exam Limitations: no limitations General appearance: alert, in no apparent distress Eye exam: Present: normal appearance, PERRL ENT exam: Present: normal oropharynx Neck exam: Present: normal inspection Respiratory exam: Present: normal lung sounds bilaterally, wheezes (With cough only) Cardiovascular Exam: Present: regular rate, normal rhythm GI/Abdominal exam: Present: soft. Absent: tenderness Extremities exam: Present: normal inspection. Absent: pedal edema, calf tenderness Back exam: Present: normal inspection Neurological exam: Present: alert Psychiatric exam: Present: normal affect, normal mood Skin exam: Present: normal color Course Vital Signs 10/22/16 10/22/16 10/22/16 12:38 13:02 13:18 Temperature 98.1 F Pulse Rate 90 80 Respiratory 20 20 Rate Blood Pressure 104/59 O2 Sat by Pulse 100 Oximetry 10/22/16 10/22/16 13:26 14:00 Temperature Pulse Rate 82 79 Respiratory 18 Rate Blood Pressure O2 Sat by Pulse 96 Oximetry EKG Findings - EKG Comments: EKG Findings:: Normal sinus rhythm at 81. DE 142. QRS 90. QT 44. QTC 43. Left axis. Inferior Q waves. No acute ST change. Medical Decision Making - Medical Decision Making Patient reevaluated and resting comfortably in bed. Patient updated on results. Patient would prefer to go home. Patient would like cough medicine as well. updated on need to return if symptoms worsen. - Lab Data Result diagrams: 10/22/16 13:00 10/22/16 13:00 Lab Results 10/22/16 10/22/16 10/22/16 Range/Units 13:00 13:00 13:00 WBC 7.2 (3.8-10.6) k/uL RBC 4.00 (3.80-5.40) m/uL Hgb 12.4 (11.4-16.0) gm/dL Hct 37.2 (34.0-46.0) % MCV 92.9 (80.0-100.0) fL MCH 31.1 (25.0-35.0) pg MCHC 33.4 (31.0-37.0) g/dL RDW 13.0 (11.5-15.5) % Plt Count 282 (150-450) k/uL Neutrophils % 58 % Lymphocytes % 32 % Monocytes % 5 % Eosinophils % 4 % Basophils % 1 % Neutrophils # 4.2 (1.3-7.7) k/uL Lymphocytes # 2.3 (1.0-4.8) k/uL Monocytes # 0.3 (0-1.0) k/uL Eosinophils # 0.3 (0-0.7) k/uL Basophils # 0.1 (0-0.2) k/uL PT (9.0-12.0) sec INR (<1.1) APTT (22.0-30.0) sec Sodium 140 (137-145) mmol/L Potassium 4.5 (3.5-5.1) mmol/L Chloride 104 (98-107) mmol/L Carbon Dioxide 27 (22-30) mmol/L Anion Gap 9 mmol/L BUN 30 H (7-17) mg/dL Creatinine 1.66 H (0.52-1.04) mg/dL Est GFR (MDRD) Af Amer 38 (>60 ml/min/1.73 sqM) Est GFR (MDRD) Non-Af 31 (>60 ml/min/1.73 sqM) Glucose 142 H (74-99) mg/dL Calcium 9.4 (8.4-10.2) mg/dL Total Bilirubin 0.8 (0.2-1.3) mg/dL AST 34 (14-36) U/L ALT 27 (9-52) U/L Alkaline Phosphatase 88 (38-126) U/L Total Creatine Kinase 40 (30-135) U/L CK-MB (CK-2) 1.7 (0.0-2.4) ng/mL CK-MB (CK-2) Rel Index 4.3 Troponin I <0.012 (0.000-0.034) ng/mL NT-Pro-B Natriuret Pep pg/mL Total Protein 7.2 (6.3-8.2) g/dL Albumin 3.9 (3.5-5.0) g/dL 10/22/16 10/22/16 Range/Units 13:00 13:00 WBC (3.8-10.6) k/uL RBC (3.80-5.40) m/uL Hgb (11.4-16.0) gm/dL Hct (34.0-46.0) % MCV (80.0-100.0) fL MCH (25.0-35.0) pg MCHC (31.0-37.0) g/dL RDW (11.5-15.5) % Plt Count (150-450) k/uL Neutrophils % % Lymphocytes % % Monocytes % % Eosinophils % % Basophils % % Neutrophils # (1.3-7.7) k/uL Lymphocytes # (1.0-4.8) k/uL Monocytes # (0-1.0) k/uL Eosinophils # (0-0.7) k/uL Basophils # (0-0.2) k/uL PT 9.6 (9.0-12.0) sec INR 0.9 (<1.1) APTT 22.9 (22.0-30.0) sec Sodium (137-145) mmol/L Potassium (3.5-5.1) mmol/L Chloride (98-107) mmol/L Carbon Dioxide (22-30) mmol/L Anion Gap mmol/L BUN (7-17) mg/dL Creatinine (0.52-1.04) mg/dL Est GFR (MDRD) Af Amer (>60 ml/min/1.73 sqM) Est GFR (MDRD) Non-Af (>60 ml/min/1.73 sqM) Glucose (74-99) mg/dL Calcium (8.4-10.2) mg/dL Total Bilirubin (0.2-1.3) mg/dL AST (14-36) U/L ALT (9-52) U/L Alkaline Phosphatase (38-126) U/L Total Creatine Kinase (30-135) U/L CK-MB (CK-2) (0.0-2.4) ng/mL CK-MB (CK-2) Rel Index Troponin I (0.000-0.034) ng/mL NT-Pro-B Natriuret Pep 1160 pg/mL Total Protein (6.3-8.2) g/dL Albumin (3.5-5.0) g/dL - Radiology Data Radiology results: image reviewed (Chest x-ray shows no acute process) Disposition Clinical Impression: Bronchitis Disposition: HOME SELF-CARE Condition: Stable Instructions: Acute Bronchitis (ED) Additional Instructions: Please follow-up with your doctor on Tuesday. Return for difficulty in breathing , fevers, chest pain, worsening symptoms or other concerns. Prescriptions: Albuterol Inhaler [Ventolin Hfa Inhaler] 2 puff INHALATION Q4HR PRN #1 inhaler PRN Reason: Dyspnea Azithromycin [Zithromax Z-pack] 250 mg PO DIRECTED #6 tab guaiFENesin-Coden 100-10MG/5ML [Robitussin AC] 10 ml PO Q6HR PRN #250 ml PRN Reason: Cough Referrals: Jairo Levi DO [Primary Care Provider] - 1-2 days Time of Disposition: 14:18
[2016-10-22 13:11] LABS: Basophils # (A) 0.1 k/uL (0-0.2); Basophils % (A) 1 %; CH 31.7; CHCM 34.3; Eosinophils # (A) 0.3 k/uL (0-0.7); Eosinophils % (A) 4 %; HCT 37.2 % (34.0-46.0); HDW 2.78; HGB 12.4 gm/dL (11.4-16.0); Luc # (Auto) 0.13; Luc % (Auto) 2; Lymphocytes # (A) 2.3 k/uL (1.0-4.8); Lymphocytes % (A) 32 %; MCH 31.1 pg (25.0-35.0); MCHC 33.4 g/dL (31.0-37.0); MCV 92.9 fL (80.0-100.0); Mean Platelet Volume 6.8; Monocytes # (A) 0.3 k/uL (0-1.0); Monocytes % (A) 5 %; Neutrophils # (A) 4.2 k/uL (1.3-7.7); Neutrophils % (A) 58 %; WBC 7.2 k/uL (3.8-10.6); WBC (Perox) 7.51
[2016-10-22 13:21] LABS: INR 0.9 (<1.1); Partial Thromboplastin Time 22.9 sec (22.0-30.0); Prothrombin Time 9.6 sec (9.0-12.0)
--- NOTE | 2016-10-22 13:24 | XR ---
EXAMINATION TYPE: XR chest 2V DATE OF EXAM: 10/22/2016 COMPARISON: 09/23/2016 TECHNIQUE: PA and lateral views submitted. HISTORY: Difficulty breathing FINDINGS: The lungs are clear and there is no pneumothorax, pleural effusion, or focal pneumonia. Cardiac dev ice seen. Hypertrophic change of the spine noted. IMPRESSION: 1. No acute process.
[2016-10-22 13:25] LABS: Calcium 9.4 mg/dL (8.4-10.2); Potassium 4.5 mmol/L (3.5-5.1); Total Bilirubin 0.8 mg/dL (0.2-1.3); Total Protein 7.2 g/dL (6.3-8.2)
[2016-10-22 13:31] LABS: Creatine Kinase 40 U/L (30-135)
[2016-10-22 13:44] LABS: Creatine Kinase MB 1.7 ng/mL (0.0-2.4); Troponin I <0.012 ng/mL (0.000-0.034)
[2016-10-22 14:29] VITALS: BP 100/58; PULSE 80; RESP 16; TEMP 98.5
== END 2016-10-22 14:27 | disposition home or self-care (01) ==
LOC: EC 12:34
DX: J40 Bronchitis, not specified as acute or chronic (principal); R05 Cough; I25.10 Atherosclerotic heart disease of native coronary artery without angina pectoris; M79.7 Fibromyalgia; K21.9 Gastro-esophageal reflux disease without esophagitis; E78.5 Hyperlipidemia, unspecified; I10 Essential (primary) hypertension; I25.2 Old myocardial infarction; M19.90 Unspecified osteoarthritis, unspecified site; E11.319 Type 2 diabetes mellitus with unspecified diabetic retinopathy without macular edema; F32.9 Major depressive disorder, single episode, unspecified; F41.9 Anxiety disorder, unspecified; Z87.891 Personal history of nicotine dependence; Z79.4 Long term (current) use of insulin; Z79.899 Other long term (current) drug therapy; Z88.0 Allergy status to penicillin; Z88.5 Allergy status to narcotic agent; Z88.8 Allergy status to other drugs, medicaments and biological substances
CPT/HCPCS: 36415; 71020; 80053; 82550; 82553; 83880; 84484; 85025; 85610; 85730; 94640; 99284

== ENCOUNTER 2016-10-22 16:03 | Inpatient (IN) | payer MEDICARE ==
--- NOTE | 2016-10-22 16:26 | ED ---
Fall HPI - General Chief Complaint: Fall Stated Complaint: Fall Time Seen by Provider: 10/22/16 16:05 Source: patient, EMS, RN notes reviewed, old records reviewed Mode of arrival: EMS - History of Present Illness Initial Comments: This is a 61-year-old female presenting to the emergency department with chief complaint of left hip and left knee pain. Patient reports that she was going to the bathroom, stood up and tripped and lost her balance. Patient reports that she fell and landed on her left hip and knee. Patient states that she is not able to bear weight over it. Patient reports the pain is mainly over the lateral aspect of her hip. Patient was seen earlier today for chest pain and was diagnosed with bronchitis. Patient had a full workup at that time, EKG was normal and no elevated cardiac enzymes. Patient reports that she did not hit her head. She did not lose consciousness after the fall. Patient reports that she called for help and her and neighbor heard her. Patient reports that she has a stent in the left leg due to arterial occlusions. Patient reports that she has full sensation over the lower left leg. Patient states that she does not want to do any range of motion over her knee or hip due to pain. Patient arrived via EMS was given 50 mg of fentanyl and Zofran. She reports that she did urinate on herself when EMS arrived. - Related Data Home Medications Medication Instructions Recorded Confirmed Cholecalciferol [Vitamin D3] 2,000 unit PO DAILY 03/13/14 10/22/16 Omeprazole [PriLOSEC] 40 mg PO AC-BRKFST 08/06/14 10/22/16 Cyclobenzaprine [Flexeril] 10 mg PO HS 07/03/15 10/22/16 HYDROcodone/APAP 10-325MG [[place] 1 tab PO Q6HR PRN 10/28/15 10/22/16 10-325] Sennosides/Docusate Sodium 1 tab PO DAILY 10/28/15 10/22/16 [Lotus-Colace Tablet] INSULIN LISPRO (For Pump) [humaLOG 0.01 units SQ-PUMP CONTINUOUS 02/12/16 (For Pump)] Escitalopram [Lexapro] 20 mg PO DAILY 09/23/16 10/22/16 Metoprolol Succinate [Toprol XL] 25 mg PO DAILY 09/23/16 10/22/16 Furosemide [Lasix] 40 mg PO BID 10/22/16 10/22/16 Lisinopril [Zestril] 2.5 mg PO HS 10/22/16 10/22/16 Rosuvastatin Calcium 40 mg PO HS 10/22/16 10/22/16 Previous Rx's Medication Instructions Recorded Clopidogrel [Plavix] 75 mg PO DAILY #90 tab 01/17/16 Nitroglycerin Sl Tabs [Nitrostat] 0.4 mg SUBLINGUAL Q5M PRN #25 tab 02/18/16 ALPRAZolam [Xanax] 0.25 mg PO TID PRN #21 tab 02/27/16 Aspirin 325 mg PO DAILY #30 tab 02/27/16 Sodium Bicarbonate Tab 1,300 mg PO BID #120 tab 09/27/16 Albuterol Inhaler [Ventolin Hfa 2 puff INHALATION Q4HR PRN #1 10/22/16 Inhaler] inhaler Azithromycin [Zithromax Z-pack] 250 mg PO DIRECTED #6 tab 10/22/16 guaiFENesin-Coden 100-10MG/5ML 10 ml PO Q6HR PRN #250 ml 10/22/16 [Robitussin AC] Allergies Allergy/AdvReac Type Severity Reaction Status Date / Time adhesive tape Allergy Rash/Hives Verified 10/22/16 16:16 Penicillins Allergy Rash/Hives Verified 10/22/16 16:16 atorvastatin AdvReac Myalgia Verified 10/22/16 16:16 hydromorphone [From Dilaudid] AdvReac Unknown Verified 10/22/16 16:16 meperidine HCl [From Demerol] AdvReac Hallucinati Verified 10/22/16 16:16 ons Review of Systems ROS Statement: Those systems with pertinent positive or pertinent negative responses have been documented in the HPI. ROS Other: All systems not noted in ROS Statement are negative. Past Medical History Past Medical History: Asthma, Coronary Artery Disease (CAD), Chest Pain / Angina , Diabetes Mellitus, Eye Disorder, Fibromyalgia, GERD/Reflux, Hyperlipidemia, Hypertension, Myocardial Infarction ([place]), Osteoarthritis (OA), Pneumonia, Renal Disease, Syncope, Vascular Disorder Additional Past Medical History / Comment(s): IDDM type II with insulin pump. numbness and tingling bilateral feet, PAD. PAST FOOT ULCERS Carotid artery disease. anemia. 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 BRUISES EASILY. SHORT OF BREATH,BALANCE ISSUES AND LIGHTHEADED W/ ACTIVITY. Last Myocardial Infarction Date:: 02/12/2016 History of Any Multi-Drug Resistant Organisms: None Reported Past Surgical History: Adenoidectomy, AICD, Bariatric Surgery, Cholecystectomy, Heart Catheterization, Heart Catheterization With Stent, Hernia Repair, Joint Replacement, Tonsillectomy Additional Past Surgical History / Comment(s): 02-11-16 RT anterior tibial artery PTBA with post procedure hematoma, 01/16/16 L fem/pop arthrectomy with PTBA/stent. Peripheral angiogram, LT hand pinky finger amputated. L arm surgery for staph infection. 3 hernia repairs. hiatal hernia repair, lap band placed, removed, THEN gastric sleeve. bilateral cataract removal, XAVIER SHOULDER manipulation, lt elbow drained d/t staph infection 2005 Past Anesthesia/Blood Transfusion Reactions: Postoperative Nausea & Vomiting ( PONV) Additional Past Anesthesia/Blood Transfusion Reaction / Comment(s): LAST Blood Transfusion, 02/2016. Date of Last Stent Placement:: 02/2016 Type of Cardiac Device: AICD Device Placement Date:: Past Psychological History: Anxiety, Depression Smoking Status: Former smoker Past Alcohol Use History: None Reported Past Drug Use History: None Reported - Past Family History Father Family Medical History: Vascular Disorder Additional Family Medical History / Comment(s): from vascular disorder Mother Family Medical History: Deep Vein Thrombosis (DVT) General Exam - General Exam Comments Initial Comments: Pleasant 61-year-old female. Patient does not appear to be in any acute distress. Limitations: no limitations General appearance: alert, in no apparent distress Head exam: Present: atraumatic, normocephalic, normal inspection Eye exam: Present: normal appearance, PERRL, EOMI. Absent: scleral icterus, conjunctival injection, periorbital swelling ENT exam: Present: normal exam, mucous membranes moist Neck exam: Present: normal inspection. Absent: tenderness, meningismus, lymphadenopathy Respiratory exam: Present: normal lung sounds bilaterally. Absent: respiratory distress, wheezes, rales, rhonchi, stridor Cardiovascular Exam: Present: regular rate, normal rhythm, normal heart sounds. Absent: systolic murmur, diastolic murmur, rubs, gallop, clicks GI/Abdominal exam: Present: soft, normal bowel sounds. Absent: distended, tenderness, guarding, rebound, rigid Extremities exam: Present: normal inspection, full ROM, normal capillary refill. Absent: tenderness, pedal edema, joint swelling, calf tenderness Left Hip exam: Present: normal inspection, tenderness (Reports significant tenderness over the left lateral hip. Patient's leg is propped up on a pillow. Her knee is bent in a pillow. no significant rotation or shortening noted.) . Absent: full ROM Upper Leg exam: Present: normal inspection, tenderness (Parts tenderness over the lateral aspect of the femur.) Knee exam: Present: normal inspection. Absent: full ROM (Patient will not perform range of motion due to increased pain of her knee.) Lower Leg exam: Present: normal inspection, full ROM Ankle exam: Present: normal inspection, full ROM Foot/Toe exam: Present: normal inspection, full ROM Neurovascular tendon exam: Absent: no vascular compromise ( does have a diminished dorsalis pedis pulse. Capillary refill is less than 2 seconds.) Back exam: Present: normal inspection Neurological exam: Present: alert, oriented X3, CN II-XII intact Psychiatric exam: Present: normal affect, normal mood Skin exam: Present: warm, dry, intact, normal color. Absent: rash Course Vital Signs 10/22/16 10/22/16 16:05 17:11 Temperature 98.5 F 97.9 F Pulse Rate 83 82 Respiratory 16 16 Rate Blood Pressure 141/68 141/68 O2 Sat by Pulse 99 100 Oximetry - Reevaluation(s) Reevaluation #1: 10/22/16 17:15 Patient was given 4 mg of morphine and Reglan and Benadryl for nausea at this time. Patient was informed that she did fracture her hip. Asians case was discussed with the branch, PAC for Dr. dez Montague. He will be reviewing the studies at this time. Medical Decision Making - Medical Decision Making This is a 61-year-old female presenting to the emergency department with chief complaint of left hip and left knee pain. Patient reports that she was going to the bathroom, stood up and tripped and lost her balance. Patient reports that she fell and landed on her left hip and knee. Patient states that she is not able to bear weight over it. Patient reports the pain is mainly over the lateral aspect of her hip. Patient was seen earlier today for chest pain and was diagnosed with bronchitis. Patient had a full workup at that time, EKG was normal and no elevated cardiac enzymes. Patient reports that she did not hit her head. She did not lose consciousness after the fall. She has hip x-ray shows evidence of the left subcapital hip fracture. Orthopedic physician Dr. Palumbo was contacted, his physician microbiology lab assistant, Khang Wen this and we will admit the patient to them. Patient is currently on Plavix. He states that we need to hold Plavix. Consult Dr. Koroma for medicine management. will likely be scheduled for surgery on Tuesday or Tuesday given the fact that she is on Plavix. Patient was informed of this. - Lab Data Lab Results 10/22/16 Range/Units 17:00 POC Glucose (mg/dL) 136 H (75-99) mg/dL POC Glu Body Stylist ID Josephine Serena - Radiology Data Radiology results: report reviewed Subcapital left hip fracture. X-ray was reviewed and negative for any acute osseous abnormality. Disposition Clinical Impression: Hip fracture, left, Fall, Bronchitis Disposition: ADMITTED IP TO THIS [facility] Condition: Stable Referrals: Jairo Levi DO [Primary Care Provider] - 1-2 days Time of Disposition: 17:29
[2016-10-22] MEDS ORDERED: MORPHINE SULFATE 4 MG/ML SYRINGE IVP STA (16:59)
[2016-10-22 17:03] LABS: Glucose,Whole Blood 136 mg/dL (75-99)
[2016-10-22] MEDS ORDERED: diphenhydrAMINE 50 MG/ML 1 ML VIAL IVP STA (17:12)
[2016-10-22] MEDS ORDERED: METOCLOPRAMIDE 5 MG/ML 2 ML VIAL IVP STA (17:12)
--- NOTE | 2016-10-22 17:18 | XR ---
EXAMINATION TYPE: XR Hip LT and AP Pelvis DATE OF EXAM: 10/22/2016 COMPARISON: NONE HISTORY: Left hip pain following fall TECHNIQUE: AP pelvis and 2 views left hip FINDINGS: Sacroiliac joints and symphysis pubis are normal. Subcapital fracture is present at the lef t hip. Bilateral hip joint spaces are preserved. Vascular calcification is present. IMPRESSION: 1. Subcapital left hip fracture
--- NOTE | 2016-10-22 17:20 | XR ---
EXAMINATION TYPE: XR knee complete LT DATE OF EXAM: 10/22/2016 COMPARISON: NONE HISTORY: Left knee pain following fall TECHNIQUE: 3 view left knee FINDINGS: No joint effusion is evident. Anterior superior patellar spur is present. Vascular calcific ations present. Joint spaces and mild narrowing. No acute fractures are evident Follow-up exam can be performed 7-10 days from acute trauma for continued pain. IMPRESSION: 1. No acute osseous abnormality.
[2016-10-22] MEDS ORDERED: ACETAMINOPHEN TAB 325 MG TAB PO PRN (17:29)
[2016-10-22] MEDS ORDERED: LORazepam 2 MG/ML SYRINGE IV PRN (17:29)
[2016-10-22] MEDS ORDERED: ONDANSETRON 4 MG/2 ML VIAL IVP PRN (17:29)
[2016-10-22] MEDS ORDERED: NALOXONE 0.4 MG/ML 1 ML VIAL IV PRN (17:29)
[2016-10-22] MEDS ORDERED: ALPRAZolam 0.25 MG TAB PO PRN (17:33)
[2016-10-22] MEDS: SODIUM CHLORIDE 0.9% 1,000 ML IV SCH (17:41)
[2016-10-22 17:46] LABS: Basophils % (A) 1 %; CH 31.6; CHCM 35.6; Eosinophils # (A) 0.2 k/uL (0-0.7); Eosinophils % (A) 2 %; HCT 34.3 % (34.0-46.0); HDW 2.99; HGB 12.1 gm/dL (11.4-16.0); Luc # (Auto) 0.17; Luc % (Auto) 2; Lymphocytes # (A) 1.9 k/uL (1.0-4.8); Lymphocytes % (A) 25 %; MCH 31.5 pg (25.0-35.0); MCHC 35.3 g/dL (31.0-37.0); MCV 89.2 fL (80.0-100.0); Monocytes # (A) 0.3 k/uL (0-1.0); Monocytes % (A) 4 %; Neutrophils # (A) 5.1 k/uL (1.3-7.7); Neutrophils % (A) 66 %; RBC 3.84 m/uL (3.80-5.40); RDW 12.5 % (11.5-15.5); WBC 7.8 k/uL (3.8-10.6); WBC (Perox) 7.88
[2016-10-22 17:50] LABS: Calcium 8.4 mg/dL (8.4-10.2); INR 1.1 (<1.1); Partial Thromboplastin Time 23.1 sec (22.0-30.0); Potassium 3.7 mmol/L (3.5-5.1); Prothrombin Time 10.7 sec (9.0-12.0)
--- NOTE | 2016-10-22 19:23 | P.HPOR ---
History of Present Illness H&P Date: 10/22/16 Chief Complaint: Left femoral neck fracture This is a 61-year-old female who is seen and evaluated today a [facility] emergency after a fall at home. Patient was using the bathroom, when she stood up she lost her balance and fell directly on the left side. Patient was unable to weight-bear at that point, she'll for her . EMS was contacted , and they transfer her to [facility]. Upon arrival, imaging and lab tests were done. Images demonstrated impacted left femoral neck fracture. Patient was recently at [facility] today with regards to the chest pain, she had full workup which was negative for any acute processes. Patient denies any significant orthopedic history involving the lower extremities. She is a patient of Dr. Roberts and has had previous shoulder surgeries. Patient denies any pain involving the right lower extremity, bilateral upper extremities, new onset cervical or lumbar pain. Patient has a rather significant history involving the cardiac and vascular systems. Review of Systems Constitutional: Reports as per HPI Past Medical History Past Medical History: Asthma, Coronary Artery Disease (CAD), Chest Pain / Angina , Diabetes Mellitus, Eye Disorder, Fibromyalgia, GERD/Reflux, Hyperlipidemia, Hypertension, Myocardial Infarction ([place]), Osteoarthritis (OA), Pneumonia, Renal Disease, Syncope, Vascular Disorder Additional Past Medical History / Comment(s): IDDM type II with insulin pump. numbness and tingling bilateral feet, PAD. PAST FOOT ULCERS Carotid artery disease. anemia. 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 BRUISES EASILY. SHORT OF BREATH,BALANCE ISSUES AND LIGHTHEADED W/ ACTIVITY. Last Myocardial Infarction Date:: 02/12/2016 History of Any Multi-Drug Resistant Organisms: None Reported Past Surgical History: Adenoidectomy, AICD, Bariatric Surgery, Cholecystectomy, Heart Catheterization, Heart Catheterization With Stent, Hernia Repair, Joint Replacement, Tonsillectomy Additional Past Surgical History / Comment(s): 02-11-16 RT anterior tibial artery PTBA with post procedure hematoma, 01/16/16 L fem/pop arthrectomy with PTBA/stent. Peripheral angiogram, LT hand pinky finger amputated. L arm surgery for staph infection. 3 hernia repairs. hiatal hernia repair, lap band placed, removed, THEN gastric sleeve. bilateral cataract removal, XAVIER SHOULDER manipulation, lt elbow drained d/t staph infection 2005 Past Anesthesia/Blood Transfusion Reactions: Postoperative Nausea & Vomiting ( PONV) Additional Past Anesthesia/Blood Transfusion Reaction / Comment(s): LAST Blood Transfusion, 02/2016. Date of Last Stent Placement:: 02/2016 Type of Cardiac Device: AICD Device Placement Date:: Past Psychological History: Anxiety, Depression Smoking Status: Former smoker Past Alcohol Use History: None Reported Past Drug Use History: None Reported - Past Family History Father Family Medical History: Vascular Disorder Additional Family Medical History / Comment(s): from vascular disorder Mother Family Medical History: Deep Vein Thrombosis (DVT) Medications and Allergies Home Medications Medication Instructions Recorded Confirmed Type Cholecalciferol [Vitamin D3] 2,000 unit PO DAILY 03/13/14 10/22/16 History Omeprazole [PriLOSEC] 40 mg PO AC-BRKFST 08/06/14 10/22/16 History Cyclobenzaprine [Flexeril] 10 mg PO HS 07/03/15 10/22/16 History HYDROcodone/APAP 10-325MG [[place] 1 tab PO Q6HR PRN 10/28/15 10/22/16 History 10-325] Sennosides/Docusate Sodium 1 tab PO DAILY 10/28/15 10/22/16 History [Lotus-Colace Tablet] INSULIN LISPRO (For Pump) [humaLOG 0.01 units SQ-PUMP CONTINUOUS 02/12/16 History (For Pump)] Escitalopram [Lexapro] 20 mg PO DAILY 09/23/16 10/22/16 History Metoprolol Succinate [Toprol XL] 25 mg PO DAILY 09/23/16 10/22/16 History Furosemide [Lasix] 40 mg PO BID 10/22/16 10/22/16 History Lisinopril [Zestril] 2.5 mg PO HS 10/22/16 10/22/16 History Rosuvastatin Calcium 40 mg PO HS 10/22/16 10/22/16 History Allergies Allergy/AdvReac Type Severity Reaction Status Date / Time adhesive tape Allergy Rash/Hives Verified 10/22/16 16:16 Penicillins Allergy Rash/Hives Verified 10/22/16 16:16 atorvastatin AdvReac Myalgia Verified 10/22/16 16:16 hydromorphone [From Dilaudid] AdvReac Unknown Verified 10/22/16 16:16 meperidine HCl [From Demerol] AdvReac Hallucinati Verified 10/22/16 16:16 ons Physical Examination Left lower extremity: Patient is lying in her bed, in the lateral decubitus position onto her right side. She has significant discomfort in the left hip revision with any type of movement. Obvious shortening of the leg is noted. No obvious open lesions or sores present throughout the left lower extremity She is unable to straight leg raise, logroll maneuver reproduces pain Plantar flexion, dorsiflexion, EHL, FHL are intact No obvious focal no defects noted in the lower extremity Capillary refill less than 3 seconds Results - Labs Labs: Abnormal Lab Results - Last 24 Hours (Table) 10/22/16 10/22/16 Range/Units 17:00 17:11 BUN 28 H (7-17) mg/dL Creatinine 1.54 H (0.52-1.04) mg/dL Glucose 132 H (74-99) mg/dL POC Glucose (mg/dL) 136 H (75-99) mg/dL H & H 10/22/16 Range/Units 17:11 Hgb 12.1 (11.4-16.0) gm/dL Hct 34.3 (34.0-46.0) % Coagulation 10/22/16 Range/Units 17:11 INR 1.1 (<1.1) Result Diagrams: 10/22/16 17:11 10/22/16 17:11 - Diagnostic results Hip x-ray: report reviewed, image reviewed Assessment and Plan Plan: Imaging: Views of the left hip and knee were obtained. Images knee revealed no acute fractures or dislocations. Images of the left hip demonstrated impacted left femoral neck fracture, the remaining joint remains intact. Assessment: 1. Impacted left femoral neck fracture 2. Status post fall from standing 3. Multiple medical comorbidities Plan: 1. I was able to discuss this case, including physical exam findings and x- rays with my attending Dr. Palumbo. Surgical intervention will be needed for fixation of this fracture. We will likely proceed with a hemiarthroplasty at some point, patient is on Plavix for anticoagulation, so this will delay her surgery. 2. Risk and benefits of the procedure will be discussed with the patient, obtain consent 3. Nonweightbearing left lower extremity 4. Pain control, utilize IV and oral medication 5. GI and DVT prophylaxis, will hold Plavix at this time, we'll begin Lovenox 30 mg subcu 6. Heart healthy diet, she'll be made nothing by mouth the night before surgery 7. Medical clearance 8. Cardiac clearance 9. Further recommendations to follow Time with Patient: Less than 30
[2016-10-22] MEDS: HYDROcodone/APAP 10-325MG 1 EACH TAB PO PRN (19:59)
[2016-10-22] MEDS: MORPHINE SULFATE 4 MG/ML SYRINGE IV PRN (20:50)
[2016-10-22] MEDS ORDERED: AZITHROMYCIN 500 MG TAB PO ONE (21:00)
[2016-10-22 21:13] LABS: Hemoglobin A1C 7.6 % (4.2-6.1)
[2016-10-22] MEDS: LISINOPRIL 2.5 MG TAB PO SCH (22:30)
[2016-10-22] MEDS: SODIUM BICARBONATE TAB 650 MG TAB PO SCH (22:30)
[2016-10-22] MEDS: FUROSEMIDE 40 MG TAB PO SCH (22:30)
[2016-10-22] MEDS: CYCLOBENZAPRINE 10 MG TAB PO SCH (22:31)
[2016-10-22 22:45] VITALS: BMI 31.6
[2016-10-23] MEDS: MORPHINE SULFATE 4 MG/ML SYRINGE IV PRN ×3 (01:07→20:04)
[2016-10-23] MEDS: SODIUM CHLORIDE 0.9% 1,000 ML IV SCH ×2 (03:49→17:03)
[2016-10-23 07:05] LABS: Glucose,Whole Blood 105 mg/dL (75-99)
[2016-10-23] MEDS: INSULIN LISPRO (humaLOG) 300 UNIT/3 ML VIAL SQ SCH ×3 (08:19→17:59)
[2016-10-23] MEDS: ESCITALOPRAM 20 MG TAB PO SCH (08:29)
[2016-10-23] MEDS: PANTOPRAZOLE 40 MG TABLET PO SCH (08:29)
[2016-10-23] MEDS: SENNOSIDES-DOCUSATE SODIUM 1 EACH TAB PO SCH (08:30)
[2016-10-23] MEDS ORDERED: ENOXAPARIN 30 MG/0.3 ML SYRINGE SQ SCH (09:00)
[2016-10-23] MEDS: SODIUM BICARBONATE TAB 650 MG TAB PO SCH ×2 (09:36→19:31)
[2016-10-23] MEDS: HYDROcodone/APAP 10-325MG 1 EACH TAB PO PRN ×2 (11:58→19:36)
[2016-10-23] MEDS: CHOLECALCIFEROL 1,000 UNIT TAB PO SCH (12:03)
[2016-10-23 12:27] LABS: Glucose,Whole Blood 115 mg/dL (75-99)
[2016-10-23] MEDS: METOPROLOL SUCCINATE (ER) 25 MG TAB.ER.24H PO SCH (12:41)
--- NOTE | 2016-10-23 13:14 | P.PN ---
Subjective Principal diagnosis: Left femoral neck fracture Patient seen resting in hospital bed, she appears comfortable, pain is controlled. She denies any acute changes Objective - Vital Signs Vital signs: Vital Signs Temp 98.0 F 10/23/16 08:11 Pulse 86 10/23/16 09:40 Resp 16 10/23/16 08:11 BP 101/62 10/23/16 09:40 Pulse Ox 100 10/23/16 08:11 Intake & Output 10/22/16 10/23/16 10/23/16 18:59 06:59 18:59 Intake Total 300 Output Total 500 Balance 300 -500 Weight 86.183 kg Intake: Intake, IV Titration 300 Amount Sodium Chloride 0.9% 1, 300 000 ml @ 50 mls/hr IV . Q20H [facility] Rx#:[id number] Output: Urine 500 - Exam Left lower extremity: Obvious shortening of leg noted, no open lesions or sores She cannot SLR, log roll manuver reproduces pain in groin Plantar flexion, dorsiflexion, EHL, FHL intact. Cap refill is less than 3 seconds - Labs CBC & Chem 7: 10/22/16 17:11 10/22/16 17:11 Labs: Abnormal Lab Results - Last 24 Hours (Table) 10/22/16 10/22/16 10/22/16 Range/Units 17:00 17:11 17:11 BUN 28 H (7-17) mg/dL Creatinine 1.54 H (0.52-1.04) mg/dL Glucose 132 H (74-99) mg/dL POC Glucose (mg/dL) 136 H (75-99) mg/dL Hemoglobin A1c 7.6 H (4.2-6.1) % 10/23/16 10/23/16 Range/Units 06:59 11:44 BUN (7-17) mg/dL Creatinine (0.52-1.04) mg/dL Glucose (74-99) mg/dL POC Glucose (mg/dL) 105 H 115 H (75-99) mg/dL Hemoglobin A1c (4.2-6.1) % Assessment and Plan Plan: Assessment: 1. Impacted left femoral neck fracture 2. Status post fall from standing 3. Multiple medical comorbidities Plan: 1. Plan for surgery morning of 10/24/2016. 2. Risk and benefits of the procedure will be discussed with the patient, obtain consent 3. Nonweightbearing left lower extremity 4. Pain control, utilize IV and oral medication 5. GI and DVT prophylaxis, will hold Plavix at this time, we'll begin Lovenox 30 mg subcu 6. NPO after midnight 7. Medical clearance 8. Cardiac clearance 9. Further recommendations to follow Time with Patient: Less than 30
[2016-10-23] MEDS: FUROSEMIDE 40 MG TAB PO SCH (13:21)
[2016-10-23] MEDS: ASPIRIN 81 MG CHEW PO SCH (13:21)
--- NOTE | 2016-10-23 15:50 | CONS ---
DATE OF CONSULTATION: Mrs. Zafar is a 61-year-old female with a known history of severe ischemic cardiomyopathy, history of peripheral vascular disease and coronary artery disease, who has fallen and presented to undergo surgical intervention. She is scheduled to undergo surgery tomorrow. Patient has been followed by Dr. Nagel in the past, has underwent an ICD implantation in July of this year, has underwent percutaneous revascularization in the past to her right coronary artery in 2016 and underwent percutaneous revascularization of the her lower extremities occlusive disease as well. Her breathing has been stable. She has dyspnea on exertion, but she has no symptoms of chest pain. She has occasional dizziness, rare palpitation. No syncope. She has no peripheral edema. She had a nonhealing ulcer that improved. Earlier she had a drop in her blood pressure, but that has recovered after receiving IV fluids. She is feeling well at that time. At the time of her cardiac catheterization that was done in February 2016, she presented with non- STEMI and had subtotally occluded small to medium mid left circumflex, chronic occlusion to the mid LAD and severe disease in the mid right coronary artery. She underwent stenting of the mid right coronary artery using a drug-eluting stent. Her echocardiogram during that admission in February 2016 showed an ejection fraction of 40% to 45%. Patient's coronary risk factors are positive for history of hypertension, hyperlipidemia, and diabetes. She is a nonsmoker. Her medications at home included Crestor 40 mg daily, metoprolol succinate 25 mg daily, Zestril 2.5 mg daily, furosemide 40 mg twice a day, Plavix 75 mg daily and aspirin once a day. REVIEW OF SYSTEMS: RESPIRATORY SYSTEM: She has dyspnea on exertion. No recent wheezing, cough. GI SYSTEM: She had mild nausea, but no recent GI bleeding. SYSTEM: No dysuria or hematuria. She has history of chronic kidney disease. NERVOUS SYSTEM: She had no recent seizure or stroke. PHYSICAL EXAMINATION: A 61-year-old female, alert, oriented, in no apparent distress. Blood pressure 101/60 with the heart rate in the 80s. Her blood pressure was done in the 80s earlier. HEAD: Normocephalic. EYES: Sclerae anicteric. NECK: No bruit. No jugular venous distention. LUNGS: Clear to auscultation. HEART: Regular rate and rhythm. S1, S2, no S3, with systolic murmur. No diastolic murmur. No rub. ABDOMEN: Soft, nontender, positive bowel sounds. No organomegaly. EXTREMITIES: No edema. Intact distal pulses. Lab data revealed BUN and creatinine 28 and 1.54. Potassium 3.7. Hemoglobin of 12.1. EKG revealed a sinus mechanism, normal axis and intervals with evidence of inferior wall myocardial infarction. Hip x-ray showed left hip subcapital fracture. IMPRESSION: 1. Fall with fracture of the left hip scheduled for hip surgery tomorrow. 2. History of ischemic cardiomyopathy, status post ICD implant with no evidence of heart failure. 3. Status post stenting of the right coronary artery with known occluded left anterior descending artery. 4. Peripheral vascular disease, status post percutaneous revascularization. 5. Hypertension. 6. Hyperlipidemia. 7. Diabetes mellitus. 8. Transient hypotension. 9. Renal failure. RECOMMENDATION: She will continue on her beta ezequiel as well as her HALINA inhibitor. I will continue the aspirin. Her Plavix has been on hold. Will hold it until tomorrow then will restart it tomorrow. The patient ( ) an increased risk for surgical intervention yet it is not prohibitive risk in view of the absence of any active ischemic events. Depending on her progress, further recommendation will be made. Thank you for this consult. We will follow with you.
--- NOTE | 2016-10-23 15:55 | P.CONS ---
History of Present Illness - Reason for Consult Consult date: 10/23/16 - History of Present Illness 61-year-old female with history of ischemic cardiomyopathy EF less than 20%, CK D stage III, dyslipidemia comes in to the [facility] after sustaining a fall as she lost her balance Patient has diabetic neuropathy has had multiple falls in the past Patient comes in the hospital after sustaining a fall was noted to have a left subcapital fracture Patient states to be symptom-free at this time denies having headaches blurry vision nausea vomiting abdominal pain urinary urgency or frequency. Patient has a Menjivar catheter in place Patient's last cardiac cath was reviewed has total complete occlusion and medical therapy was recommended at that time. Today EKG did not reveal ST-T wave changes Review of Systems All systems: negative (Noted in HPI) Past Medical History Past Medical History: Asthma, Coronary Artery Disease (CAD), Chest Pain / Angina , Diabetes Mellitus, Eye Disorder, Fibromyalgia, GERD/Reflux, Hyperlipidemia, Hypertension, Myocardial Infarction ([place]), Osteoarthritis (OA), Pneumonia, Renal Disease, Syncope, Vascular Disorder Additional Past Medical History / Comment(s): IDDM type II with insulin pump. numbness and tingling bilateral feet, PAD. PAST FOOT ULCERS Carotid artery disease. anemia. 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 BRUISES EASILY. SHORT OF BREATH,BALANCE ISSUES AND LIGHTHEADED W/ ACTIVITY. Last Myocardial Infarction Date:: 02/12/2016 History of Any Multi-Drug Resistant Organisms: None Reported Past Surgical History: Adenoidectomy, AICD, Bariatric Surgery, Cholecystectomy, Heart Catheterization, Heart Catheterization With Stent, Hernia Repair, Joint Replacement, Tonsillectomy Additional Past Surgical History / Comment(s): 02-11-16 RT anterior tibial artery PTBA with post procedure hematoma, 01/16/16 L fem/pop arthrectomy with PTBA/stent. Peripheral angiogram, LT hand pinky finger amputated. L arm surgery for staph infection. 3 hernia repairs. hiatal hernia repair, lap band placed, removed, THEN gastric sleeve. bilateral cataract removal, XAVIER SHOULDER manipulation, lt elbow drained d/t staph infection 2005 Past Anesthesia/Blood Transfusion Reactions: Postoperative Nausea & Vomiting ( PONV) Additional Past Anesthesia/Blood Transfusion Reaction / Comm: LAST Blood Transfusion, 02/2016. Date of Last Stent Placement:: 02/2016 Type of Cardiac Device: AICD Device Placement Date:: Past Psychological History: Anxiety, Depression Smoking Status: Former smoker Past Alcohol Use History: None Reported Past Drug Use History: None Reported - Past Family History Father Family Medical History: Vascular Disorder Additional Family Medical History / Comment(s): from vascular disorder Mother Family Medical History: Deep Vein Thrombosis (DVT) Medications and Allergies Home Medications Medication Instructions Recorded Confirmed Type Cholecalciferol [Vitamin D3] 2,000 unit PO DAILY 03/13/14 10/22/16 History Omeprazole [PriLOSEC] 40 mg PO AC-BRKFST 08/06/14 10/22/16 History Cyclobenzaprine [Flexeril] 10 mg PO HS 07/03/15 10/22/16 History HYDROcodone/APAP 10-325MG [[place] 1 tab PO Q6HR PRN 10/28/15 10/22/16 History 10-325] Sennosides/Docusate Sodium 1 tab PO DAILY 10/28/15 10/22/16 History [Lotus-Colace Tablet] INSULIN LISPRO (For Pump) [humaLOG 0.01 units SQ-PUMP CONTINUOUS 02/12/16 History (For Pump)] Escitalopram [Lexapro] 20 mg PO DAILY 09/23/16 10/22/16 History Metoprolol Succinate [Toprol XL] 25 mg PO DAILY 09/23/16 10/22/16 History Azithromycin [Zithromax Z-pack] See Taper PO DAILY 10/22/16 10/22/16 History Furosemide [Lasix] 40 mg PO BID 10/22/16 10/22/16 History Lisinopril [Zestril] 2.5 mg PO HS 10/22/16 10/22/16 History Rosuvastatin Calcium 40 mg PO HS 10/22/16 10/22/16 History Allergies Allergy/AdvReac Type Severity Reaction Status Date / Time adhesive tape Allergy Rash/Hives Verified 10/22/16 16:16 Penicillins Allergy Rash/Hives Verified 10/22/16 16:16 atorvastatin AdvReac Myalgia Verified 10/22/16 16:16 hydromorphone [From Dilaudid] AdvReac Unknown Verified 10/22/16 16:16 meperidine HCl [From Demerol] AdvReac Hallucinati Verified 10/22/16 16:16 ons Physical Exam Vitals: Vital Signs Temp Pulse Pulse Resp BP BP BP 10/23/16 15:00 98.2 F 69 16 92/58 10/23/16 09:40 86 101/62 10/23/16 08:11 98.0 F 63 16 140/63 10/23/16 07:19 80 112/62 10/23/16 02:20 98.3 F 89 16 78/49 10/22/16 20:14 97.9 F 82 17 95/60 10/22/16 18:00 97.4 F L 78 12 81/53 10/22/16 17:41 97.9 F 84 16 141/68 10/22/16 17:11 97.9 F 82 16 141/68 10/22/16 16:05 98.5 F 83 16 141/68 Pulse Ox 10/23/16 15:00 97 10/23/16 09:40 10/23/16 08:11 100 10/23/16 07:19 98 10/23/16 02:20 91 L 10/22/16 20:14 97 10/22/16 18:00 97 10/22/16 17:41 100 10/22/16 17:11 100 10/22/16 16:05 99 Intake and Output 10/23/16 10/23/16 10/23/16 06:59 14:59 22:59 Intake Total 300 Output Total 500 Balance 300 -500 Intake: Intake, IV Titration 300 Amount Sodium Chloride 0.9% 1, 300 000 ml @ 50 mls/hr IV . Q20H [facility] Rx#:[id number] Output: Urine 500 Physical exam Gen. appearance oriented 3 in no distress Neck is supple no JVD Lungs good air entry clear to auscultation no rhonchi or wheezing Heart S1-S2 heard regular rate and rhythm no murmurs appreciated Abdomen is soft nontender no organomegaly bowel sounds are intact left lower extremity everted Tender to palpation with hip flexion Neurologically cranial nerves II-12 grossly intact no focal motor or sensory deficits noted Skin no abnormalities appreciated Results CBC & Chem 7: 10/22/16 17:11 10/22/16 17:11 Labs: Abnormal Lab Results - Last 24 Hours (Table) 10/22/16 10/22/16 10/22/16 Range/Units 17:00 17:11 17:11 BUN 28 H (7-17) mg/dL Creatinine 1.54 H (0.52-1.04) mg/dL Glucose 132 H (74-99) mg/dL POC Glucose (mg/dL) 136 H (75-99) mg/dL Hemoglobin A1c 7.6 H (4.2-6.1) % 10/23/16 10/23/16 Range/Units 06:59 11:44 BUN (7-17) mg/dL Creatinine (0.52-1.04) mg/dL Glucose (74-99) mg/dL POC Glucose (mg/dL) 105 H 115 H (75-99) mg/dL Hemoglobin A1c (4.2-6.1) % Assessment and Plan Plan: #1 left sided hip fracture #2 history of systolic heart failure that is compensated #3 ischemic cardio myopathy #4 dyslipidemia #5 hypertension #6 fibromyalgia #7 PAD Plan Patient's medications were reviewed. With urgency of the surgery patient does have some risk factors however can undergo the procedure this was discussed with the patient no further workup is necessary from my perspective. However cardiology has been consulted will review their recommendations as well Postoperative anticoagulation options were discussed however will make a decision depending on orthopedic recommendations as well DVT prophylaxis at this time Thank you for the consultation we'll follow patient
[2016-10-23 16:50] LABS: Glucose,Whole Blood 145 mg/dL (75-99)
[2016-10-23] MEDS: AZITHROMYCIN 250 MG TAB PO SCH (19:31)
[2016-10-23] MEDS: CYCLOBENZAPRINE 10 MG TAB PO SCH (19:31)
[2016-10-23 20:44] LABS: Glucose,Whole Blood 124 mg/dL (75-99)
[2016-10-24] MEDS: LISINOPRIL 2.5 MG TAB PO SCH ×2 (03:16→20:04)
[2016-10-24] MEDS: MORPHINE SULFATE 4 MG/ML SYRINGE IV PRN ×2 (04:45→19:17)
[2016-10-24 07:01] LABS: Glucose,Whole Blood 140 mg/dL (75-99)
[2016-10-24 08:01] LABS: Calcium 8.4 mg/dL (8.4-10.2); Potassium 4.4 mmol/L (3.5-5.1)
[2016-10-24] MEDS ORDERED: fentaNYL (PF) 50 MCG/ML 2 ML AMP ONE (08:03)
[2016-10-24] MEDS ORDERED: KETAMINE 10 MG/ML 20 ML VIAL ONE (08:03)
[2016-10-24] MEDS ORDERED: SUCCINYLCHOLINE CHLORIDE 100 MG/5 ML SYR IV ONE (08:03)
[2016-10-24] MEDS ORDERED: NEOSTIGMINE 1 MG/ML 10 ML VIAL ONE (08:03)
[2016-10-24] MEDS ORDERED: PROPOFOL 10 MG/ML 20 ML VIAL IV ONE (08:03)
[2016-10-24] MEDS ORDERED: MIDAZOLAM 2 MG/2 ML VIAL ONE (08:03)
[2016-10-24] MEDS ORDERED: DEXAMETHASONE SOD PHOS (MDV) 100 MG/10 ML VIAL ONE (08:03)
[2016-10-24] MEDS ORDERED: ROCURONIUM BROMIDE 10 MG/ML 10 ML VIAL IV ONE (08:03)
[2016-10-24] MEDS ORDERED: ONDANSETRON 4 MG/2 ML VIAL ONE (08:03)
[2016-10-24] MEDS ORDERED: PHENYLEPHRINE-0.9% NACL SYG 1 MG/10 ML SYRINGE ONE (08:03)
[2016-10-24] MEDS ORDERED: MORPHINE SULFATE 10 MG/ML SYRINGE ONE (08:03)
[2016-10-24] MEDS ORDERED: IV FLUID CONTINUATION 200 ML IV ONE (08:03)
[2016-10-24] MEDS ORDERED: GLYCOPYRROLATE 0.2 MG/ML 2 ML VIAL ONE (08:03)
[2016-10-24] MEDS ORDERED: SODIUM CHLORIDE 0.9% 50 ML with ceFAZolin 3,000 MG IV ONE ×2 (08:20)
[2016-10-24] MEDS: INSULIN LISPRO (humaLOG) 300 UNIT/3 ML VIAL SQ SCH ×3 (08:23→17:18)
[2016-10-24] MEDS: SENNOSIDES-DOCUSATE SODIUM 1 EACH TAB PO SCH (08:32)
[2016-10-24] MEDS ORDERED: LACTATED RINGERS 1,000 ML IV ONE (08:45)
[2016-10-24] MEDS ORDERED: ceFAZolin 1,000 MG in SODIUM CHLORIDE 0.9% 1,000 ML IRRIGATION ONE (08:51)
[2016-10-24] MEDS ORDERED: MORPHINE SULFATE 4 MG/ML SYRINGE IV PRN (09:54)
[2016-10-24] MEDS ORDERED: ONDANSETRON 4 MG/2 ML VIAL IVP PRN (09:54)
[2016-10-24] MEDS ORDERED: NALOXONE 0.4 MG/ML 1 ML VIAL IV PRN (09:54)
[2016-10-24] MEDS ORDERED: MORPHINE SULFATE 2 MG/ML SYRINGE IV PRN ×2 (09:54)
--- NOTE | 2016-10-24 09:54 | P.OP ---
Date of Procedure: 10/24/16 Preoperative Diagnosis: Displaced left hip femoral neck fracture Postoperative Diagnosis: Displaced left hip femoral neck fracture Procedure(s) Performed: Left hip hemiarthroplasty Implants: 1. Depuy Corail cementless femoral stem KA size 15 standard collar 2. Depuy metallic femoral head 48 mm with a -3 mm tapered spacer Anesthesia: KERON Surgeon: Juancho Palumbo Inspector Advanced Composite #1: Juan Wen Estimated Blood Loss (ml): 150 Pathology: other (Femoral head) Condition: stable Disposition: PACU Indications for Procedure: 61-year-old patient seen with a displaced left hip femoral neck fracture. I recommended left hip hemiarthroplasty. I discussed the procedure, risks, complications and recovery. Patient was agreeable and consent was obtained. Operative Findings: See description of procedure Description of Procedure: Patient was taken to the operative suite. The patient underwent a general anesthetic by the department of anesthesia. The patient was given preoperative IV antibiotics. The patient was transferred to the operative table and placing a lateral position. She was secured was appropriate padding of the bony prominence. The left hip was then prepped and draped in the normal sterile orthopedic fashion. I now made a posterior lateral incision sharply through skin and dissecting down to the tensor fascia vianca. An incision was made through the tensor fascia vianca. We then internally rotated the extremity which exposed the posterior short external rotators. They were tagged and incised and retracted. A T incision was made through the posterior capsule exposing the displaced femoral neck fracture. The residual femoral neck was then removed and the fractured femoral head was extracted utilizing a corkscrew. That was templated to a 48 mm. I now used my box osteotome canal finder followed by serial broaching up to a size 15. The 15 broach had good stability. We calcar planed and placed a neutral standard neck with a -3 collar and a 48 mm endoprosthetic trial head. The hip was reduced. There was good stability noted good range of motion and good gross leg length. The hip was dislocated. All components were removed. The wound irrigated with pulse lavage mechanical irrigation. The implant was now opened and introduced with good fit noted. We now introduced the -3 neck 48mm metallic endoprosthetic head and secured. The hip was now reduced. We noted good motion and good overall stability noted. The wound again was irrigated with pulse lavage mechanical irrigation. The posterior hip capsule was repaired with #3 Vicryl. The short external rotators were repaired with #3 Vicryl. The tensor fascia vianca was repaired with #3 Vicryl. The subcu soft tissues were approximated 2-0 Vicryl. The skin was repaired with a running subcuticular 3-0 stratafix followed by pernio and Dermabond. Sterile dressings were applied. The patient was then placed in a supine position tray and insert the fracture table and then recovery stable condition. Khang PICKARD assisted procedure.
[2016-10-24 10:09] LABS: Glucose,Whole Blood 164 mg/dL (75-99)
[2016-10-24] MEDS: MORPHINE SULFATE 10 MG/ML SYRINGE IV ONE ×5 (10:09→10:56)
--- NOTE | 2016-10-24 10:24 | XR ---
EXAMINATION TYPE: XR Hip Limited LT DATE OF EXAM: 10/24/2016 COMPARISON: NONE HISTORY: . TECHNIQUE: One view submitted. FINDINGS: There is a prosthetic hip in near anatomic alignment. There is soft tissue edema and emphysema. IMPRESSION: 1. Postoperative change. Appears in near-anatomic alignment.
[2016-10-24 10:33] LABS: Basophils % (A) 1 %; CH 31.1; CHCM 33.2; Eosinophils # (A) 0.2 k/uL (0-0.7); Eosinophils % (A) 3 %; HCT 32.8 % (34.0-46.0); HDW 2.76; HGB 10.8 gm/dL (11.4-16.0); Luc # (Auto) 0.07; Luc % (Auto) 1; Lymphocytes # (A) 1.7 k/uL (1.0-4.8); Lymphocytes % (A) 25 %; MCH 30.8 pg (25.0-35.0); MCHC 32.8 g/dL (31.0-37.0); Mean Platelet Volume 7.3; Monocytes # (A) 0.4 k/uL (0-1.0); Monocytes % (A) 6 %; Neutrophils # (A) 4.4 k/uL (1.3-7.7); Neutrophils % (A) 65 %; RBC 3.49 m/uL (3.80-5.40); RDW 12.8 % (11.5-15.5); WBC 6.8 k/uL (3.8-10.6)
[2016-10-24 11:51] LABS: Glucose,Whole Blood 192 mg/dL (75-99)
[2016-10-24] MEDS: ESCITALOPRAM 20 MG TAB PO SCH (13:04)
[2016-10-24] MEDS: PANTOPRAZOLE 40 MG TABLET PO SCH (13:04)
[2016-10-24] MEDS: FUROSEMIDE 40 MG TAB PO SCH (13:04)
[2016-10-24] MEDS: METOPROLOL SUCCINATE (ER) 25 MG TAB.ER.24H PO SCH (13:05)
[2016-10-24] MEDS: SODIUM BICARBONATE TAB 650 MG TAB PO SCH ×2 (13:05→20:04)
[2016-10-24] MEDS: ASPIRIN 81 MG CHEW PO SCH (13:07)
[2016-10-24] MEDS: SODIUM CHLORIDE 0.9% 1,000 ML IV SCH ×2 (13:07→13:08)
[2016-10-24] MEDS: CHOLECALCIFEROL 1,000 UNIT TAB PO SCH (13:09)
[2016-10-24] MEDS: MULTIVITAMINS, THERA 1 EACH TAB PO SCH (13:12)
[2016-10-24 17:06] LABS: Glucose,Whole Blood 234 mg/dL (75-99)
[2016-10-24] MEDS: ceFAZolin 2 GM in SODIUM CHLORIDE 0.9% 100 ML IVPB SCH ×2 (17:06→23:10)
[2016-10-24] MEDS: HYDROcodone/APAP 10-325MG 1 EACH TAB PO PRN ×2 (17:17→23:42)
--- NOTE | 2016-10-24 18:45 | PN ---
Ms. Zafar is a 61-year-old female with known history of coronary artery disease, ischemic cardiomyopathy, history of peripheral vascular disease who had a fall and fractured hip, underwent surgery. She is doing well. This morning she had surgery done early this morning. She denies any dizziness. No palpitation. She denies any chest discomfort. Her breathing has been stable. She continues to be on aspirin 81 mg daily, Plavix 75 mg daily. Lasix 40 mg daily, Lisinopril 20 mg daily, metoprolol succinate 25 mg daily. PHYSICAL EXAMINATION: Blood pressure 117/60 with a heart rate in 90s. LUNGS: Clear. HEART: Regular rate rhythm. S1, S2, no S3, no rub. ABDOMEN: Soft, nontender. EXTREMITIES: No edema. Lab data revealed BUN and creatinine 23 and 2.09. Potassium 4.4. Hemoglobin of 10.8. IMPRESSION: 1. Status post fall and fractured hip. 2. History of his severe ischemic status post ICD implant. 3. Peripheral vascular disease. 4. Hyperlipidemia. RECOMMENDATIONS: For the cardiac standpoint, we will continue present therapy. We will repeat her EKG tomorrow. She is back on her aspirin and Plavix, we will follow her blood pressure and depending on her progress, further recommendation will be made.
[2016-10-24] MEDS: CYCLOBENZAPRINE 10 MG TAB PO SCH (20:04)
[2016-10-24] MEDS: AZITHROMYCIN 250 MG TAB PO SCH (20:04)
[2016-10-25] MEDS: MORPHINE SULFATE 4 MG/ML SYRINGE IV PRN ×2 (03:17→08:28)
[2016-10-25] MEDS: HYDROcodone/APAP 10-325MG 1 EACH TAB PO PRN ×2 (06:03→11:40)
[2016-10-25] MEDS: SODIUM CHLORIDE 0.9% 1,000 ML IV SCH ×2 (06:40→23:57)
[2016-10-25 07:02] LABS: Glucose,Whole Blood 262 mg/dL (75-99)
[2016-10-25] MEDS: ENOXAPARIN 30 MG/0.3 ML SYRINGE SQ SCH (07:37)
[2016-10-25] MEDS: METOPROLOL SUCCINATE (ER) 25 MG TAB.ER.24H PO SCH (07:38)
[2016-10-25] MEDS: FUROSEMIDE 40 MG TAB PO SCH (07:38)
[2016-10-25] MEDS: ASPIRIN 81 MG CHEW PO SCH (07:38)
[2016-10-25] MEDS: INSULIN LISPRO (humaLOG) 300 UNIT/3 ML VIAL SQ SCH ×4 (07:38→20:30)
[2016-10-25] MEDS: SODIUM BICARBONATE TAB 650 MG TAB PO SCH ×2 (07:38→20:30)
[2016-10-25] MEDS: PANTOPRAZOLE 40 MG TABLET PO SCH (07:38)
[2016-10-25] MEDS: SENNOSIDES-DOCUSATE SODIUM 1 EACH TAB PO SCH (07:38)
[2016-10-25] MEDS: ESCITALOPRAM 20 MG TAB PO SCH (07:38)
[2016-10-25] MEDS: CLOPIDOGREL 75 MG TAB PO SCH (07:38)
[2016-10-25 07:48] LABS: Calcium 8.5 mg/dL (8.4-10.2); Potassium 4.7 mmol/L (3.5-5.1)
[2016-10-25] MEDS ORDERED: ENOXAPARIN 40 MG/0.4 ML SYRINGE SQ SCH (09:00)
--- NOTE | 2016-10-25 10:33 | P.PN ---
Subjective Principal diagnosis: Status post left hip hemiarthroplasty Patient seen today resting in her hospital chair, she appears comfortable. She admits that she's rather tired today. She denies any chest pain or shortness of breath. Objective - Vital Signs Vital signs: Vital Signs Temp 98.8 F 10/25/16 07:31 Pulse 90 10/25/16 07:31 Resp 16 10/25/16 07:31 BP 105/53 10/25/16 07:31 Pulse Ox 97 10/25/16 07:31 Intake & Output 10/24/16 10/25/16 10/25/16 18:59 06:59 18:59 Intake Total 1241 925 Output Total 340 400 Balance 901 525 Intake: IV 901 Intake, IV Titration 100 575 Amount Sodium Chloride 0.9% 1, 100 575 000 ml @ 50 mls/hr IV . Q20H [facility] Rx#:[id number] Oral 240 350 Output: Urine 190 400 Estimated Blood Loss 150 Other: Voiding Method Indwelling Catheter Indwelling Catheter Indwelling Catheter - Exam Left lower extremity: Incision is clean, dry, and intact. Minimal discomfort with logroll maneuver in the hip Plantar flexion, dorsiflexion, EHL, FHL intact. Sensory exam to light touch is intact throughout the extremity, cap refill is less than 3 seconds - Labs CBC & Chem 7: 10/24/16 06:48 10/25/16 06:36 Labs: Abnormal Lab Results - Last 24 Hours (Table) 10/24/16 10/24/16 10/24/16 Range/Units 06:48 11:35 16:39 RBC 3.49 L (3.80-5.40) m/uL Hgb 10.8 L (11.4-16.0) gm/dL Hct 32.8 L (34.0-46.0) % Sodium (137-145) mmol/L Carbon Dioxide (22-30) mmol/L BUN (7-17) mg/dL Creatinine (0.52-1.04) mg/dL Glucose (74-99) mg/dL POC Glucose (mg/dL) 192 H 234 H (75-99) mg/dL 10/25/16 10/25/16 Range/Units 06:36 06:51 RBC (3.80-5.40) m/uL Hgb (11.4-16.0) gm/dL Hct (34.0-46.0) % Sodium 134 L (137-145) mmol/L Carbon Dioxide 21 L (22-30) mmol/L BUN 44 H (7-17) mg/dL Creatinine 2.01 H (0.52-1.04) mg/dL Glucose 231 H (74-99) mg/dL POC Glucose (mg/dL) 262 H (75-99) mg/dL Assessment and Plan Plan: Assessment: 1. Postop day #1 status post left hip hemiarthroplasty Plan: 1. Pain control 2. Weight-bear as tolerated, posterior hip precautions 3. Patient is resumed her Plavix and aspirin, we'll discuss with cardiology possibility of discontinuing Lovenox 4. Medical recommendations 5. Encourage incentive spirometer 6. We'll continue to follow during inpatient stay Time with Patient: Less than 30
[2016-10-25] MEDS: MULTIVITAMINS, THERA 1 EACH TAB PO SCH (11:41)
[2016-10-25] MEDS: CHOLECALCIFEROL 1,000 UNIT TAB PO SCH (11:41)
[2016-10-25 12:33] LABS: Glucose,Whole Blood 327 mg/dL (75-99)
[2016-10-25 17:16] LABS: Glucose,Whole Blood 307 mg/dL (75-99)
--- NOTE | 2016-10-25 17:40 | PN ---
This patient is status post hip surgery. She has been feeling fairly well. She is feeling slightly tired. She is not in any respiratory distress. Denies any chest pains. Patient's vital signs are noted. Blood pressure is 105/53 mmHg, heart rate is 78 per minute. First and second heart sounds are normal. Lungs are clinically clear to auscultation and percussion. Patient's creatinine is 2.0. We will continue the current medications.
[2016-10-25 20:10] LABS: Glucose,Whole Blood 267 mg/dL (75-99)
[2016-10-25] MEDS: CYCLOBENZAPRINE 10 MG TAB PO SCH ×2 (20:30→21:16)
[2016-10-25] MEDS: AZITHROMYCIN 250 MG TAB PO SCH (20:30)
[2016-10-25] MEDS: LISINOPRIL 2.5 MG TAB PO SCH (21:16)
[2016-10-26 07:03] LABS: Glucose,Whole Blood 232 mg/dL (75-99)
[2016-10-26 07:20] LABS: Calcium 8.4 mg/dL (8.4-10.2); Potassium 4.1 mmol/L (3.5-5.1); Total Bilirubin 0.6 mg/dL (0.2-1.3); Total Protein 5.3 g/dL (6.3-8.2)
[2016-10-26 07:29] LABS: Basophils % (A) 0 %; CH 31.1; CHCM 33.3; Eosinophils # (A) 0.2 k/uL (0-0.7); Eosinophils % (A) 3 %; HCT 26.2 % (34.0-46.0); HDW 2.74; Luc # (Auto) 0.11; Luc % (Auto) 1; Lymphocytes % (A) 12 %; MCH 30.4 pg (25.0-35.0); MCHC 32.4 g/dL (31.0-37.0); MCV 93.9 fL (80.0-100.0); Mean Platelet Volume 7.3; Monocytes # (A) 0.4 k/uL (0-1.0); Monocytes % (A) 5 %; Neutrophils # (A) 6.4 k/uL (1.3-7.7); Neutrophils % (A) 79 %; RBC 2.79 m/uL (3.80-5.40); WBC 8.2 k/uL (3.8-10.6); WBC (Perox) 8.15
[2016-10-26 07:32] LABS: HGB 8.5 gm/dL (11.4-16.0)
[2016-10-26] MEDS: INSULIN LISPRO (humaLOG) 300 UNIT/3 ML VIAL SQ SCH ×4 (08:07→19:01)
--- NOTE | 2016-10-26 09:24 | P.PN ---
Subjective Principal diagnosis: Status post left hip hemiarthroplasty Patient seen today resting in her hospital bed, she appears comfortable. She remained stable at this time. She is utilizing the hip abductor brace while in bed. Objective - Vital Signs Vital signs: Vital Signs Temp 97.5 F L 10/26/16 01:38 Pulse 94 10/26/16 01:38 Resp 16 10/26/16 01:38 BP 110/69 10/26/16 01:38 Pulse Ox 95 10/26/16 01:38 Intake & Output 10/25/16 10/26/16 10/26/16 18:59 06:59 18:59 Intake Total 300 150 Output Total 400 Balance 300 -250 Intake: Intake, IV Titration 300 100 Amount Sodium Chloride 0.9% 1, 300 000 ml @ 50 mls/hr IV . Q20H [facility] Rx#:[id number] ceFAZolin 2 gm In Sodium 100 Chloride 0.9% 100 ml @ 100 mls/hr IVPB Q8HR [facility] Rx#:[id number] Oral 50 Output: Urine 400 Other: Voiding Method Indwelling Catheter Indwelling Catheter - Exam Left lower extremity: Incision is clean, dry, and intact. Minimal discomfort with logroll maneuver in the hip Plantar flexion, dorsiflexion, EHL, FHL intact. Sensory exam to light touch is intact throughout the extremity, cap refill is less than 3 seconds - Labs CBC & Chem 7: 10/26/16 06:52 10/26/16 06:52 Labs: Abnormal Lab Results - Last 24 Hours (Table) 10/25/16 10/25/16 10/25/16 Range/Units 12:26 17:04 20:08 RBC (3.80-5.40) m/uL Hgb (11.4-16.0) gm/dL Hct (34.0-46.0) % Sodium (137-145) mmol/L BUN (7-17) mg/dL Creatinine (0.52-1.04) mg/dL Glucose (74-99) mg/dL POC Glucose (mg/dL) 327 H 307 H 267 H (75-99) mg/dL AST (14-36) U/L Total Protein (6.3-8.2) g/dL Albumin (3.5-5.0) g/dL 10/26/16 10/26/16 10/26/16 Range/Units 06:52 06:52 07:01 RBC 2.79 L (3.80-5.40) m/uL Hgb 8.5 L D (11.4-16.0) gm/dL Hct 26.2 L (34.0-46.0) % Sodium 133 L (137-145) mmol/L BUN 54 H (7-17) mg/dL Creatinine 2.39 H (0.52-1.04) mg/dL Glucose 203 H (74-99) mg/dL POC Glucose (mg/dL) 232 H (75-99) mg/dL AST 84 H (14-36) U/L Total Protein 5.3 L (6.3-8.2) g/dL Albumin 2.6 L (3.5-5.0) g/dL Assessment and Plan Plan: Assessment: 1. Postop day #2 status post left hip hemiarthroplasty Plan: 1. Pain control 2. Weight-bear as tolerated, posterior hip precautions 3. GI and DVT prophylaxis, patient has resumed her aspirin and Plavix 4. Medical recommendations 5. Did discuss with the nursing patient's high level creatinine. She has a well-known history of kidney disease, I advised them to discuss with medicine and they want nephrology consulted. 6. Encourage incentive spirometer 7. We'll continue to follow during inpatient stay Time with Patient: Less than 30
--- NOTE | 2016-10-26 09:27 | P.DS ---
Providers Date of admission: 10/22/16 17:29 Expected date of discharge: 10/27/16 Attending physician: Juancho Palumbo Consults: 10/22/16 17:35 Consult Physician Stat Consulting Provider: Kwasi Koroma Consult Reason/Comments: Left Hip Fracture, medical management Do you want consulting provider notified?: Yes 10/22/16 19:16 Consult Physician Routine Consulting Provider: Toñito Nagel Consult Reason/Comments: Cardiac Clearance Do you want consulting provider notified?: Yes Primary care physician: Jairo Levi Hospital Course: Date of admission: 10/22/2016 Date of discharge: 10/27/2016 Admission diagnosis: Left hip femoral neck fracture Discharge diagnosis: Status post left hip hemiarthroplasty Attending physician: Dr. Palumbo Surgical procedures: Left hip hemiarthroplasty Brief history: Patient is a 61-year-old female who presented to [facility] on 10/22/2016 after sustaining a fall at home. Imaging studies demonstrated a impacted left femoral neck fracture. She was admitted under our orthopedic care, treatment options were discussed the patient. It was decided that a left hip hemiarthroplasty will be scheduled for the morning of 2016. Hospital course: Details of patient's surgery can be found in operative report. Patient tolerated the procedure well and was subsequently transported to orthopedic floor. Patient's orthopeidc and medical care was provided daily. Patient had daily laboratory tests performed for evaluation of overall blood counts. Patient had daily physical therapy to include strengthening range of motion as well as education with walker ambulation. Patient was treated with Lovenox and Plavix for their postoperative DVT prophylaxis during their inpatient stay. Patient was noted to have a relatively uneventful postoperative course. Patient reported satisfactory pain control with oral pain medications by postoperative day. Patient showed satisfactory progress with physical therapy. Patient moved steadily through the program and had no difficulty meeting the goals by postoperative day 3. Given patient's otherwise satisfactory course and having met physical therapy goals, plan is to discharge patient rehab on postoperative day 3. Discharge condition/disposition: Patient will be discharged to rehab in stable condition. Discharge medications: Instructions are given on resumption of patient's normal daily medications per primary care recommendation, in addition patient will be prescribed Blackfoot 10 mg/325 mg. Discharge instructions: 1. Wound care and infection precautions, keep incision dry and covered while showering, no lotions, creams, moisturizers. No soaking, tubs, pools, hottubs. Do not scrub over the incision. 2. Weight-bear as tolerated with walker / cane until follow-up. Posterior hip precautions 3. Ice and elevate when necessary. Do not exceed 20 minutes per hour with ice pack. 4. Utilize compression sleeve until seen at first follow up appointment. 5. Visiting nursing care. 6. Home physical therapy. 7. Pain meds and anticoagulants per prescription. 8. Pain medication has potential to cause constipation. Increase oral fluid and fiber intake. Contact primary care provider if you have not had a bowel movement within 48 hours after discharge 9. No anti-inflammatory medication until discussed at first post operative visit, this including Motrin, Aleve, Mobic, Diclofenac. 10. Follow up in office at 2 weeks postop with Khang Wen PA-C 11. Follow up with your primary care doctor 7-10 days after discharge. 12. Contact [facility] with any questions, . Procedures: Left hemiarthroplasty Patient Condition at Discharge: Stable Plan - Discharge Summary New Discharge Prescriptions: New Hydrocodone/Acetaminophen [Blackfoot 10-325] 1 each PO Q6H PRN #60 tab PRN Reason: Pain No Action Cholecalciferol [Vitamin D3] 2,000 unit PO DAILY Omeprazole [PriLOSEC] 40 mg PO AC-BRKFST Cyclobenzaprine [Flexeril] 10 mg PO HS Sennosides/Docusate Sodium [Lotus-Colace Tablet] 1 tab PO DAILY Clopidogrel [Plavix] 75 mg PO DAILY #90 tab INSULIN LISPRO (For Pump) [humaLOG (For Pump)] 0.01 units SQ-PUMP CONTINUOUS Nitroglycerin Sl Tabs [Nitrostat] 0.4 mg SUBLINGUAL Q5M PRN #25 tab PRN Reason: Chest Pain ALPRAZolam [Xanax] 0.25 mg PO TID PRN #21 tab PRN Reason: Anxiety Aspirin 325 mg PO DAILY #30 tab Metoprolol Succinate [Toprol XL] 25 mg PO DAILY Escitalopram [Lexapro] 20 mg PO DAILY Sodium Bicarbonate Tab 1,300 mg PO BID #120 tab Rosuvastatin Calcium 40 mg PO HS Lisinopril [Zestril] 2.5 mg PO HS Furosemide [Lasix] 40 mg PO BID Albuterol Inhaler [Ventolin Hfa Inhaler] 2 puff INHALATION Q4HR PRN #1 inhaler PRN Reason: Dyspnea guaiFENesin-Coden 100-10MG/5ML [Robitussin AC] 10 ml PO Q6HR PRN #250 ml PRN Reason: Cough Azithromycin [Zithromax Z-pack] See Taper PO DAILY Discharge Medication List Cholecalciferol [Vitamin D3] 2,000 unit PO DAILY 03/13/14 [History] Omeprazole [PriLOSEC] 40 mg PO AC-BRKFST 08/06/14 [History] Cyclobenzaprine [Flexeril] 10 mg PO HS 07/03/15 [History] Sennosides/Docusate Sodium [Lotus-Colace Tablet] 1 tab PO DAILY 10/28/15 [History ] Clopidogrel [Plavix] 75 mg PO DAILY #90 tab 01/17/16 [Rx] INSULIN LISPRO (For Pump) [humaLOG (For Pump)] 0.01 units SQ-PUMP CONTINUOUS 10/22 [History] Nitroglycerin Sl Tabs [Nitrostat] 0.4 mg SUBLINGUAL Q5M PRN #25 tab 02/18/16 [Rx ] ALPRAZolam [Xanax] 0.25 mg PO TID PRN #21 tab 02/27/16 [Rx] Aspirin 325 mg PO DAILY #30 tab 02/27/16 [Rx] Escitalopram [Lexapro] 20 mg PO DAILY 09/23/16 [History] Metoprolol Succinate [Toprol XL] 25 mg PO DAILY 09/23/16 [History] Sodium Bicarbonate Tab 1,300 mg PO BID #120 tab 09/27/16 [Rx] Albuterol Inhaler [Ventolin Hfa Inhaler] 2 puff INHALATION Q4HR PRN #1 inhaler 10/22/16 [Rx] Azithromycin [Zithromax Z-pack] See Taper PO DAILY 10/22/16 [History] Furosemide [Lasix] 40 mg PO BID 10/22/16 [History] Lisinopril [Zestril] 2.5 mg PO HS 10/22/16 [History] Rosuvastatin Calcium 40 mg PO HS 10/22/16 [History] guaiFENesin-Coden 100-10MG/5ML [Robitussin AC] 10 ml PO Q6HR PRN #250 ml [Rx] Hydrocodone/Acetaminophen [Blackfoot 10-325] 1 each PO Q6H PRN #60 tab 10/27/16 [Rx] Follow up Appointment(s)/Referral(s): Jairo Levi DO [Primary Care Provider] - 1-2 days [facility] Visiting Nurse, [NON-STAFF] - As Needed Juan Wen, SAUL [PHYSICIAN SERVICES REP] - 2 Weeks Activity/Diet/Wound Care/Special Instructions: Orthopedic Discharge Instructions: 1. Wound care and infection precautions, keep incision dry and covered while showering, no lotions, creams, moisturizers. No soaking, pools, hot tubs. Do not scrub over incision. 2. Weight-bear as tolerated with walker / cane until follow-up. Posterior hip precautions 3. Ice and elevate when necessary. Do not exceed 20 minutes per hour with ice pack. 4. Utilize compression sleeve until seen at first follow up appointment. 5. Visiting nursing care. 6. Home physical therapy. 7. Pain meds and anticoagulants per prescription. 8. Pain medication has potential to cause constipation. Increase oral fluid and fiber intake. Contact primary care provider if you have not had a bowel movement within 48 hours after discharge. 9. No anti-inflammatory medication until discussed at first post operative visit, this including Motrin, Aleve, Mobic, Diclofenac. 10. Follow up in office at 2 weeks postop with Khang Wen PA-C 11. Follow up with your primary care doctor 7-10 days after discharge. 12. Contact [facility] with any questions, . Discharge Disposition: TRANSFER TO SNF/ECF
[2016-10-26] MEDS ORDERED: HYDROcodone/APAP 7.5-325MG 1 EACH TAB PO PRN (09:49)
[2016-10-26] MEDS: PANTOPRAZOLE 40 MG TABLET PO SCH (10:24)
[2016-10-26] MEDS: CLOPIDOGREL 75 MG TAB PO SCH (10:24)
[2016-10-26] MEDS: ASPIRIN 81 MG CHEW PO SCH (10:24)
[2016-10-26] MEDS: ENOXAPARIN 30 MG/0.3 ML SYRINGE SQ SCH (10:24)
[2016-10-26] MEDS: METOPROLOL SUCCINATE (ER) 25 MG TAB.ER.24H PO SCH (10:26)
[2016-10-26] MEDS: ESCITALOPRAM 20 MG TAB PO SCH (10:26)
[2016-10-26] MEDS: FUROSEMIDE 40 MG TAB PO SCH (10:26)
[2016-10-26] MEDS: SODIUM BICARBONATE TAB 650 MG TAB PO SCH ×2 (10:27→20:14)
[2016-10-26] MEDS: SENNOSIDES-DOCUSATE SODIUM 1 EACH TAB PO SCH (10:27)
[2016-10-26 11:58] LABS: Glucose,Whole Blood 256 mg/dL (75-99)
[2016-10-26] MEDS: ROSUVASTATIN CALCIUM 40 MG PO SCH ×2 (12:04→12:06)
[2016-10-26] MEDS: CHOLECALCIFEROL 1,000 UNIT TAB PO SCH (12:17)
[2016-10-26] MEDS: MULTIVITAMINS, THERA 1 EACH TAB PO SCH (12:17)
[2016-10-26] MEDS: AZITHROMYCIN 500 MG TAB PO SCH (14:28)
[2016-10-26 16:59] LABS: Glucose,Whole Blood 234 mg/dL (75-99)
[2016-10-26] MEDS: CYCLOBENZAPRINE 10 MG TAB PO SCH (20:14)
[2016-10-26] MEDS: LISINOPRIL 2.5 MG TAB PO SCH (20:14)
[2016-10-26 20:19] LABS: Glucose,Whole Blood 232 mg/dL (75-99)
[2016-10-27 02:03] VITALS: RESP 16
[2016-10-27] MEDS: HYDROcodone/APAP 10-325MG 1 EACH TAB PO PRN ×2 (03:53→14:31)
[2016-10-27] MEDS: SODIUM CHLORIDE 0.9% 1,000 ML IV SCH (04:55)
[2016-10-27 05:47] LABS: Glucose,Whole Blood 231 mg/dL (75-99)
[2016-10-27 07:11] LABS: Glucose,Whole Blood 167 mg/dL (75-99)
[2016-10-27] MEDS: INSULIN LISPRO (humaLOG) 300 UNIT/3 ML VIAL SQ SCH ×2 (07:58→14:26)
[2016-10-27] MEDS: PANTOPRAZOLE 40 MG TABLET PO SCH (07:58)
[2016-10-27] MEDS: AZITHROMYCIN 500 MG TAB PO SCH (07:59)
[2016-10-27] MEDS: CLOPIDOGREL 75 MG TAB PO SCH (07:59)
[2016-10-27] MEDS: SODIUM BICARBONATE TAB 650 MG TAB PO SCH (07:59)
[2016-10-27] MEDS: ENOXAPARIN 30 MG/0.3 ML SYRINGE SQ SCH (07:59)
[2016-10-27] MEDS: METOPROLOL SUCCINATE (ER) 25 MG TAB.ER.24H PO SCH (07:59)
[2016-10-27] MEDS: ESCITALOPRAM 20 MG TAB PO SCH (07:59)
[2016-10-27] MEDS: FUROSEMIDE 40 MG TAB PO SCH (07:59)
[2016-10-27] MEDS: SENNOSIDES-DOCUSATE SODIUM 1 EACH TAB PO SCH (08:03)
[2016-10-27] MEDS: ASPIRIN 81 MG CHEW PO SCH (08:03)
[2016-10-27 11:20] LABS: Glucose,Whole Blood 183 mg/dL (75-99)
--- NOTE | 2016-10-27 11:39 | P.PN ---
Subjective Principal diagnosis: Status post left hip hemiarthroplasty Patient seen today resting in her hospital bed, she appears comfortable. She remained stable at this time. She is utilizing the hip abductor brace while in bed. Objective - Vital Signs Vital signs: Vital Signs Temp 97.4 F L 10/27/16 08:00 Pulse 92 10/27/16 08:00 Resp 16 10/27/16 08:00 BP 126/70 10/27/16 08:00 Pulse Ox 98 10/27/16 09:47 Intake & Output 10/26/16 10/27/16 10/27/16 18:59 06:59 18:59 Intake Total 200 100 Output Total 500 Balance -300 100 Intake: Oral 200 100 Output: Urine 500 Uretheral (Menjivar) 400 Other: Voiding Method Indwelling Catheter Bedside Commode Bedpan Incontinent - Exam Left lower extremity: Incision is clean, dry, and intact. Minimal discomfort with logroll maneuver in the hip Plantar flexion, dorsiflexion, EHL, FHL intact. Sensory exam to light touch is intact throughout the extremity, cap refill is less than 3 seconds - Labs CBC & Chem 7: 10/26/16 06:52 10/26/16 06:52 Labs: Abnormal Lab Results - Last 24 Hours (Table) 10/26/16 10/26/16 10/26/16 Range/Units 11:50 14:38 16:58 POC Glucose (mg/dL) 256 H 231 H 234 H (75-99) mg/dL 10/26/16 10/27/16 10/27/16 Range/Units 20:17 07:08 11:17 POC Glucose (mg/dL) 232 H 167 H 183 H (75-99) mg/dL Assessment and Plan Plan: Assessment: 1. Postop day #3 status post left hip hemiarthroplasty Plan: 1. Pain control 2. Weight-bear as tolerated, posterior hip precautions 3. GI and DVT prophylaxis, patient has resumed her aspirin and Plavix 4. Medical recommendations 5. Encourage incentive spirometer 6. Patient will be discharged to rehab today Time with Patient: Less than 30
[2016-10-27] MEDS: MULTIVITAMINS, THERA 1 EACH TAB PO SCH (13:30)
[2016-10-27] MEDS: CHOLECALCIFEROL 1,000 UNIT TAB PO SCH (13:30)
[2016-10-27 14:12] VITALS: BP 121/99; PULSE 91; TEMP 98.4
== END 2016-10-27 15:31 | DRG 470 ==
LOC: EC 16:03 → 3SUR 17:29
PROVIDERS: ADMIT Orthopaedic Surgery; ATTEND Orthopaedic Surgery
PROC: 0SRS01A Replacement of Left Hip Joint, Femoral Surface with Metal Synthetic Substitute, Uncemented, Open Approach (ICD-10-PCS; principal; 2016-10-24 08:00)
DX: S72.012A Unspecified intracapsular fracture of left femur, initial encounter for closed fracture (principal); I13.0 Hypertensive heart and chronic kidney disease with heart failure and stage 1 through stage 4 chronic kidney disease, or unspecified chronic kidney disease; I95.9 Hypotension, unspecified; I50.20 Unspecified systolic (congestive) heart failure; E11.40 Type 2 diabetes mellitus with diabetic neuropathy, unspecified; I25.82 Chronic total occlusion of coronary artery; I25.2 Old myocardial infarction; I25.5 Ischemic cardiomyopathy; J45.909 Unspecified asthma, uncomplicated; I25.10 Atherosclerotic heart disease of native coronary artery without angina pectoris; L98.499 Non-pressure chronic ulcer of skin of other sites with unspecified severity; I65.29 Occlusion and stenosis of unspecified carotid artery; M21.752 Unequal limb length (acquired), left femur; E11.51 Type 2 diabetes mellitus with diabetic peripheral angiopathy without gangrene; E11.319 Type 2 diabetes mellitus with unspecified diabetic retinopathy without macular edema; R11.0 Nausea; M25.562 Pain in left knee; K21.9 Gastro-esophageal reflux disease without esophagitis; E78.5 Hyperlipidemia, unspecified; D64.9 Anemia, unspecified; H35.30 Unspecified macular degeneration; N18.3 Chronic kidney disease, stage 3 (moderate); M19.90 Unspecified osteoarthritis, unspecified site; F32.9 Major depressive disorder, single episode, unspecified; F41.9 Anxiety disorder, unspecified; M79.7 Fibromyalgia; R29.6 Repeated falls; Z79.891 Long term (current) use of opiate analgesic; Z91.81 History of falling; Z87.891 Personal history of nicotine dependence; Z86.19 Personal history of other infectious and parasitic diseases; Z95.5 Presence of coronary angioplasty implant and graft; Z96.41 Presence of insulin pump (external) (internal); Z79.4 Long term (current) use of insulin; Z79.02 Long term (current) use of antithrombotics/antiplatelets; Z79.82 Long term (current) use of aspirin; Z79.899 Other long term (current) drug therapy; Z95.810 Presence of automatic (implantable) cardiac defibrillator; Z87.01 Personal history of pneumonia (recurrent); Z88.5 Allergy status to narcotic agent; Z88.0 Allergy status to penicillin; Z88.8 Allergy status to other drugs, medicaments and biological substances; Z91.048 Other nonmedicinal substance allergy status; Z82.49 Family history of ischemic heart disease and other diseases of the circulatory system; Z98.84 Bariatric surgery status; Z89.022 Acquired absence of left finger(s); Z95.820 Peripheral vascular angioplasty status with implants and grafts; Z95.0 Presence of cardiac pacemaker; Z90.49 Acquired absence of other specified parts of digestive tract; Z96.60 Presence of unspecified orthopedic joint implant; Z98.42 Cataract extraction status, left eye; Z98.41 Cataract extraction status, right eye; W01.0XXA Fall on same level from slipping, tripping and stumbling without subsequent striking against object, initial encounter; Y92.002 Bathroom of unspecified non-institutional (private) residence as the place of occurrence of the external cause
CPT/HCPCS: 36415; 71020; 73501; 73502; 80048; 80053; 82550; 82553; 83036; 83880; 84484; 85025; 85610; 85730; 88305; 88311; 93005; 94640; 96374; 96375; 99284; 99285

== ENCOUNTER → 2017-02-07 | Outpatient (CLI) | payer MEDICARE ==
[2017-02-07 13:49] LABS: Hemoglobin A1C 7.7 % (4.2-6.1)
[2017-02-07 14:51] LABS: Calcium 9.3 mg/dL (8.4-10.2); Total Bilirubin 0.5 mg/dL (0.2-1.3); Total Protein 7.1 g/dL (6.3-8.2)
== END | disposition home or self-care (01) ==
LOC: LABWHC1 12:02
PROVIDERS: ATTEND Internal Medicine
DX: N18.3 Chronic kidney disease, stage 3 (moderate) (principal); E11.9 Type 2 diabetes mellitus without complications
CPT/HCPCS: 36415; 80053; 80061; 83036

== ENCOUNTER → 2017-08-09 | Outpatient (CLI) | payer MEDICARE ==
[2017-08-09 13:08] LABS: Albumin 3.5 g/dL (3.5-5.0); Calcium 9.1 mg/dL (8.4-10.2); HCT 37.3 % (34.0-46.0); HGB 13.2 gm/dL (11.4-16.0); MCH 30.3 pg (25.0-35.0); MCHC 35.4 g/dL (31.0-37.0); MCV 85.6 fL (80.0-100.0); Mean Platelet Volume 6.7; Platelet Count 251 k/uL (150-450); Potassium 3.9 mmol/L (3.5-5.1); RBC 4.36 m/uL (3.80-5.40); RDW 12.5 % (11.5-15.5); Total Bilirubin 0.8 mg/dL (0.2-1.3); Total Protein 6.3 g/dL (6.3-8.2); WBC 7.1 k/uL (3.8-10.6)
[2017-08-09 18:51] LABS: Iron Saturation 21.33 (12.00-45.00)
[2017-08-09 19:01] LABS: Vitamin D 25 Hydroxy 24.6 ng/mL (30.0-100.0)
[2017-08-09 19:57] LABS: Parathyroid Hormone Intact 168.1 pg/mL (14.0-72.0)
== END | disposition home or self-care (01) ==
LOC: LABWHC1 12:15
PROVIDERS: ATTEND Nurse Practitioner Family
DX: E55.9 Vitamin D deficiency, unspecified (principal); N39.0 Urinary tract infection, site not specified; N18.3 Chronic kidney disease, stage 3 (moderate); E21.3 Hyperparathyroidism, unspecified; R80.9 Proteinuria, unspecified; D63.1 Anemia in chronic kidney disease
CPT/HCPCS: 36415; 80053; 82306; 82728; 83540; 83550; 83970; 84443; 85027

== ENCOUNTER → 2017-11-16 | Outpatient (CLI) | payer MEDICARE ==
[2017-11-16 13:24] LABS: HCT 40.9 % (34.0-46.0); HGB 13.8 gm/dL (11.4-16.0); MCH 29.9 pg (25.0-35.0); MCHC 33.8 g/dL (31.0-37.0); MCV 88.7 fL (80.0-100.0); Mean Platelet Volume 6.8; Platelet Count 229 k/uL (150-450); RBC 4.61 m/uL (3.80-5.40); RDW 12.8 % (11.5-15.5); WBC 6.9 k/uL (3.8-10.6)
[2017-11-16 13:58] LABS: Albumin 3.5 g/dL (3.5-5.0); Calcium 8.9 mg/dL (8.4-10.2); Magnesium 2.1 mg/dL (1.6-2.3); Phosphorus 3.8 mg/dL (2.5-4.5); Potassium 3.4 mmol/L (3.5-5.1); Total Protein 6.1 g/dL (6.3-8.2); Uric Acid 6.1 mg/dL (3.7-7.4)
[2017-11-16 20:21] LABS: Parathyroid Hormone Intact 162.7 pg/mL (14.0-72.0)
[2017-11-16 20:52] LABS: Iron Saturation 20.5 (12.00-45.00)
[2017-11-16 21:02] LABS: Vitamin D 25 Hydroxy 33.6 ng/mL (30.0-100.0)
== END | disposition home or self-care (01) ==
LOC: LABWHC1 12:41
PROVIDERS: ATTEND Internal Medicine
DX: N18.3 Chronic kidney disease, stage 3 (moderate) (principal); D63.1 Anemia in chronic kidney disease; N39.0 Urinary tract infection, site not specified; E21.3 Hyperparathyroidism, unspecified; E55.9 Vitamin D deficiency, unspecified; M10.9 Gout, unspecified
CPT/HCPCS: 36415; 80053; 82306; 82728; 83540; 83550; 83735; 83970; 84100; 84550; 85027

== ENCOUNTER → 2018-03-06 | Outpatient (CLI) | payer MEDICARE ==
[2018-03-06 16:17] LABS: HCT 42.1 % (34.0-46.0); HGB 14.4 gm/dL (11.4-16.0); MCH 29.4 pg (25.0-35.0); MCHC 34.1 g/dL (31.0-37.0); MCV 86.2 fL (80.0-100.0); Mean Platelet Volume 6.9; Platelet Count 269 k/uL (150-450); RBC 4.89 m/uL (3.80-5.40); RDW 12.8 % (11.5-15.5); WBC 8.5 k/uL (3.8-10.6)
[2018-03-06 16:28] LABS: Appearance,Urine Cloudy (Clear); Bacteria,Urine Many /hpf; Bilirubin,Urine Negative (Negative); Blood,Urine Negative (Negative); Budding Yeast,Urine Occasional /hpf; Color,Urine Yellow; Glucose,Urine (UA) Negative (Negative); Hyaline Casts,Urine 26 /lpf (0-2); Ketones,Urine Negative (Negative); Leukocyte Esterase,Urine Large (Negative); Mucus,Urine Rare /hpf; Nitrite,Urine Negative (Negative); Protein,Urine Trace (Negative); RBC,Urine 2 /hpf (0-5); Squamous Epithelial Cell,Urine 2 /hpf (0-4); Urobilinogen,Urine <2.0 mg/dL (<2.0); WBC,Urine 23 /hpf (0-5)
[2018-03-07 03:15] LABS: Iron Saturation 20.07 (12.00-45.00)
[2018-03-07 03:23] LABS: Vitamin D 25 Hydroxy 31.6 ng/mL (30.0-100.0)
[2018-03-07 03:40] LABS: Albumin 4.1 g/dL (3.80-4.90); Albumin/Globulin Ratio 1.71 (1.20-2.10); Anion Gap 6.8 mmol/L (4.00-12.00); Calcium 9.2 mg/dL (8.7-10.3); Carbon Dioxide 28.2 mmol/L (21.6-31.8); Globulin 2.4 g/dL (2.1-3.7); Magnesium 2.3 mg/dL (1.5-2.4); Phosphorus 4.1 mg/dL (2.4-5.1); Potassium 3.4 mmol/L (3.5-5.5); Total Bilirubin 0.7 mg/dL (0.3-1.2); Total Protein 6.5 g/dL (6.2-8.2); Uric Acid 7.8 mg/dL (2.9-7.7)
[2018-03-07 04:49] LABS: Parathyroid Hormone Intact 125.2 pg/mL (14.0-72.0)
== END | disposition home or self-care (01) ==
LOC: LABWHC1 15:37
PROVIDERS: ATTEND Nurse Practitioner Family
DX: M10.9 Gout, unspecified (principal); R80.9 Proteinuria, unspecified; D63.1 Anemia in chronic kidney disease; N18.3 Chronic kidney disease, stage 3 (moderate); I12.9 Hypertensive chronic kidney disease with stage 1 through stage 4 chronic kidney disease, or unspecified chronic kidney disease; N25.81 Secondary hyperparathyroidism of renal origin; E83.39 Other disorders of phosphorus metabolism
CPT/HCPCS: 36415; 80053; 81001; 82306; 82728; 83540; 83550; 83735; 83970; 84100; 84550; 85027

== ENCOUNTER 2018-03-18 12:25 | Observation (INO) | payer MEDICARE ==
[2018-03-18] MEDS ORDERED: SODIUM CHLORIDE 0.9% 1,000 ML IV ONE (12:55)
[2018-03-18] MEDS ORDERED: MECLIZINE 12.5 MG TAB PO STA (12:55)
[2018-03-18 13:34] LABS: Basophils % (A) 0 %; Eosinophils # (A) 0.3 k/uL (0-0.7); Eosinophils % (A) 3 %; HCT 44.2 % (34.0-46.0); HGB 15.5 gm/dL (11.4-16.0); Lymphocytes # (A) 2.3 k/uL (1.0-4.8); Lymphocytes % (A) 23 %; MCH 29.3 pg (25.0-35.0); MCV 83.6 fL (80.0-100.0); Monocytes # (A) 0.4 k/uL (0-1.0); Monocytes % (A) 4 %; Neutrophils # (A) 6.8 k/uL (1.3-7.7); Neutrophils % (A) 68 %; Platelet Count 319 k/uL (150-450); RBC 5.28 m/uL (3.80-5.40); RDW 12.9 % (11.5-15.5)
[2018-03-18 13:42] LABS: Calcium 9.9 mg/dL (8.4-10.2); Magnesium 2.7 mg/dL (1.6-2.3)
[2018-03-18 13:46] LABS: Potassium 2.7 mmol/L (3.5-5.1)
[2018-03-18] MEDS ORDERED: POTASSIUM CHLORIDE ER 20 MEQ TAB.ER PO STA (13:46)
--- NOTE | 2018-03-18 14:02 | CT ---
EXAMINATION TYPE: CT brain wo con DATE OF EXAM: 03/18/2018 COMPARISON: Previous study dated 08/07/2014. HISTORY: Dizziness CT DLP: 1264.2 mGycm Automated exposure control for dose reduction was used. FINDINGS: Central structures are midline. There is no evidence of hydrocephalus. No acute focal lesion, mass ef fect or midline shift is seen. I do not see evidence of intracranial blood. Visualized portions of the paranasal sinuses and mastoids are clear. The bony calvarium is intact. IMPRESSION: NO ACUTE INTRACRANIAL ABNORMALITY.
--- NOTE | 2018-03-18 14:04 | XR ---
EXAMINATION TYPE: XR chest 2V DATE OF EXAM: 03/18/2018 HISTORY: Pain. REFERENCE: Previous study dated 10/22/2016. FINDINGS: There is unipolar pacemaker place on the left. The lungs are clear. Pleural space are clear. The heart is not enlarged. IMPRESSION: NO ACTIVE INTRATHORACIC DISEASE.
[2018-03-18] MEDS: POTASSIUM CHLORIDE 10 MEQ in WATER FOR INJECTION 1 100ML.BAG IVPB SCH ×3 (14:08→17:38)
--- NOTE | 2018-03-18 14:10 | ED ---
General Adult HPI - General Chief complaint: Shortness of Breath Stated complaint: Weakness Time Seen by Provider: 03/18/18 12:42 Source: patient, EMS Mode of arrival: EMS Limitations: no limitations - History of Present Illness Initial comments: 63-year-old female presenting with 2 weeks of room spinning dizziness that began without inciting event, has been constant, worsening, and is accompanied by constant shortness of breath while at rest. She denies any headache, focal weakness or numbness, chest pain, palpitations, F/C, ear pain, tinnitus, or similar symptoms in the past. She states the dizziness is not alleviated or exacerbated by anything. She has not tried anything at home. She states the shortness of breath is constant, not alleviated or exacerbated by anything. She states she has a history of asthma as a child but has not required inhalers since then, is not on chronic steroids, and shes never been intubated. - Related Data Home Medications Medication Instructions Recorded Confirmed Omeprazole [PriLOSEC] 40 mg PO AC-BRKFST 08/06/14 03/18/18 Cyclobenzaprine [Flexeril] 10 mg PO HS 07/03/15 03/18/18 Escitalopram [Lexapro] 20 mg PO DAILY 09/23/16 03/18/18 Metoprolol Succinate [Toprol XL] 25 mg PO DAILY 09/23/16 03/18/18 Rosuvastatin Calcium 40 mg PO HS 10/22/16 03/18/18 Calcitriol 0.5 mcg PO MOTH 03/18/18 03/18/18 Ergocalciferol (Vitamin D2) 50,000 unit PO Q30D 03/18/18 03/18/18 [Vitamin D2] Ferrous Sulfate [Feosol] 325 mg PO DAILY 03/18/18 03/18/18 Furosemide [Lasix] 40 mg PO BID 03/18/18 03/18/18 Potassium Chloride ER [K-Dur 10] 10 meq PO BID 03/18/18 03/18/18 traMADol HCL [Ultram] 50 mg PO BID 03/18/18 03/18/18 Previous Rx's Medication Instructions Recorded Nitroglycerin Sl Tabs [Nitrostat] 0.4 mg SUBLINGUAL Q5M PRN #25 tab 02/18/16 Albuterol Inhaler [Ventolin Hfa 2 puff INHALATION Q4HR PRN #1 06/16/17 Inhaler] inhaler ALPRAZolam [Xanax] 0.25 mg PO TID PRN #40 tab 10/27/16 Aspirin 81 mg PO DAILY 10/27/16 Clopidogrel [Plavix] 75 mg PO DAILY tab 10/27/16 INSULIN LISPRO (For Pump) [humaLOG 0.01 units SQ-PUMP CONTINUOUS #0 10/27/16 (For Pump)] Allergies Allergy/AdvReac Type Severity Reaction Status Date / Time adhesive tape Allergy Rash/Hives Verified 03/18/18 13:04 Penicillins Allergy Rash/Hives Verified 03/18/18 13:04 atorvastatin AdvReac Myalgia Verified 03/18/18 13:04 hydromorphone [From Dilaudid] AdvReac Unknown Verified 03/18/18 13:04 meperidine HCl [From Demerol] AdvReac Hallucinati Verified 03/18/18 13:04 ons Review of Systems ROS Statement: Those systems with pertinent positive or pertinent negative responses have been documented in the HPI. Review of Systems Constitutional: Denies fever, chills Eyes: Denies change in vision, Denies pain Ears, nose, mouth, throat: Denies headaches, Denies sore throat Cardiovascular: Denies chest pain. Denies palpitations Respiratory: Positive shortness of breath, Denies cough Gastrointestinal: Denies abdominal pain. Denies nausea, vomiting, diarrhea. Genitourinary: Denies hematuria, Denies infections Musculoskeletal: Denies pain, Denies swelling Integumentary: Denies rash Neurological: Denies headache, focal weakness, focal numbness. Positive dizziness Psychiatric: Denies anxiety, Denies depression Hematologic/Lymphatic: Denies easy bleeding or bruising ROS Other: All systems not noted in ROS Statement are negative. Past Medical History Past Medical History: Asthma, Coronary Artery Disease (CAD), Chest Pain / Angina , Diabetes Mellitus, Eye Disorder, Fibromyalgia, GERD/Reflux, Hyperlipidemia, Hypertension, Myocardial Infarction ([place]), Osteoarthritis (OA), Pneumonia, Renal Disease, Syncope, Vascular Disorder Additional Past Medical History / Comment(s): IDDM type II with insulin pump. numbness and tingling bilateral feet, PAD. PAST FOOT ULCERS Carotid artery disease. anemia. 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 BRUISES EASILY. SHORT OF BREATH,BALANCE ISSUES AND LIGHTHEADED W/ ACTIVITY. Last Myocardial Infarction Date:: 02/12/2016 History of Any Multi-Drug Resistant Organisms: None Reported Past Surgical History: Adenoidectomy, AICD, Bariatric Surgery, Cholecystectomy, Heart Catheterization, Heart Catheterization With Stent, Hernia Repair, Joint Replacement, Tonsillectomy Additional Past Surgical History / Comment(s): 02-11-16 RT anterior tibial artery PTBA with post procedure hematoma, 01/16/16 L fem/pop arthrectomy with PTBA/stent. Peripheral angiogram, LT hand pinky finger amputated. L arm surgery for staph infection. 3 hernia repairs. hiatal hernia repair, lap band placed, removed, THEN gastric sleeve. bilateral cataract removal, XAVIER SHOULDER manipulation, lt elbow drained d/t staph infection 2005 Past Anesthesia/Blood Transfusion Reactions: Postoperative Nausea & Vomiting ( PONV) Additional Past Anesthesia/Blood Transfusion Reaction / Comment(s): LAST Blood Transfusion, 02/2016. Date of Last Stent Placement:: 02/2016 Type of Cardiac Device: AICD Device Placement Date:: Past Psychological History: Anxiety, Depression Smoking Status: Former smoker Past Alcohol Use History: None Reported Past Drug Use History: None Reported - Past Family History Father Family Medical History: Vascular Disorder Additional Family Medical History / Comment(s): from vascular disorder Mother Family Medical History: Deep Vein Thrombosis (DVT) General Exam - General Exam Comments Initial Comments: General: Awake, alert, No acute Distress HENT: Normocephalic. Atraumatic Eyes: PERRL. EOMI. No scleral icterus. No injected conjunctiva. No nystagmus Neck: Full ROM Chest/Lungs: Clear to auscultation bilaterally. No wheezing, rhonchi, or rales Cardiac: Regular rate, rhythm. No murmurs or rubs Abdomen/GI: Soft, nontender, nondistended. No rebound, guarding, or rigidity. Musculoskeletal: Full ROM Skin: Warm, dry, intact Neurologic: A/Ox3, no weakness, no sensory deficit, no abnormal gait, no coordination deficit. [id number] intact bilaterally. Rapid alternating movement intact bilaterally. No upper or lower extremity drift. Limitations: no limitations Course Vital Signs 03/18/18 03/18/18 03/18/18 12:32 13:26 15:24 Temperature 98.5 F Pulse Rate 88 78 67 Respiratory 18 18 18 Rate Blood Pressure 111/72 123/75 98/60 O2 Sat by Pulse 99 96 100 Oximetry 03/18/18 17:39 Temperature Pulse Rate 62 Respiratory 18 Rate Blood Pressure 111/65 O2 Sat by Pulse 97 Oximetry EKG Findings - EKG Comments: EKG Findings:: EKG shows normal sinus rhythm at a rate of 83 bpm with a prolonged QT at 448 ms. Medical Decision Making - Medical Decision Making 63-year-old female presenting with constant spinning dizziness and shortness of breath. Initial exam the patient is awake, alert, no acute distress. VSS. Patient's well score is 1.5. Laboratory workup revealed a KI with hypokalemia as well as an elevated d-dimer. Patient's GFR is too low for CT PE so at this time we'll elect to VQ scan her. Chest x-ray was negative for acute process. Her CT head was negative as well. Patient's VQ scan was negative. Patient requires admission for possible posterior stroke, DANA, hypokalemia, and shortness of breath. I spoke with Dr. Morse who is agreeable to admission. - Lab Data Result diagrams: 03/18/18 13:22 03/18/18 13:22 Lab Results 03/18/18 03/18/18 03/18/18 Range/Units 13:22 13:22 13:22 WBC 10.0 (3.8-10.6) k/uL RBC 5.28 (3.80-5.40) m/uL Hgb 15.5 (11.4-16.0) gm/dL Hct 44.2 (34.0-46.0) % MCV 83.6 (80.0-100.0) fL MCH 29.3 (25.0-35.0) pg MCHC 35.0 (31.0-37.0) g/dL RDW 12.9 (11.5-15.5) % Plt Count 319 (150-450) k/uL Neutrophils % 68 % Lymphocytes % 23 % Monocytes % 4 % Eosinophils % 3 % Basophils % 0 % Neutrophils # 6.8 (1.3-7.7) k/uL Lymphocytes # 2.3 (1.0-4.8) k/uL Monocytes # 0.4 (0-1.0) k/uL Eosinophils # 0.3 (0-0.7) k/uL Basophils # 0.0 (0-0.2) k/uL D-Dimer 0.86 H (<0.60) mg/L FEU Sodium 137 (137-145) mmol/L Potassium 2.7 L* (3.5-5.1) mmol/L Chloride 94 L (98-107) mmol/L Carbon Dioxide 33 H (22-30) mmol/L Anion Gap 10 mmol/L BUN 35 H (7-17) mg/dL Creatinine 2.10 H (0.52-1.04) mg/dL Est GFR (CKD-EPI)AfAm 28 (>60 ml/min/1.73 sqM) Est GFR (CKD-EPI)NonAf 24 (>60 ml/min/1.73 sqM) Glucose 204 H (74-99) mg/dL Calcium 9.9 (8.4-10.2) mg/dL Magnesium 2.7 H (1.6-2.3) mg/dL Troponin I (0.000-0.034) ng/mL NT-Pro-B Natriuret Pep pg/mL 03/18/18 03/18/18 Range/Units 13:22 13:22 WBC (3.8-10.6) k/uL RBC (3.80-5.40) m/uL Hgb (11.4-16.0) gm/dL Hct (34.0-46.0) % MCV (80.0-100.0) fL MCH (25.0-35.0) pg MCHC (31.0-37.0) g/dL RDW (11.5-15.5) % Plt Count (150-450) k/uL Neutrophils % % Lymphocytes % % Monocytes % % Eosinophils % % Basophils % % Neutrophils # (1.3-7.7) k/uL Lymphocytes # (1.0-4.8) k/uL Monocytes # (0-1.0) k/uL Eosinophils # (0-0.7) k/uL Basophils # (0-0.2) k/uL D-Dimer (<0.60) mg/L FEU Sodium (137-145) mmol/L Potassium (3.5-5.1) mmol/L Chloride (98-107) mmol/L Carbon Dioxide (22-30) mmol/L Anion Gap mmol/L BUN (7-17) mg/dL Creatinine (0.52-1.04) mg/dL Est GFR (CKD-EPI)AfAm (>60 ml/min/1.73 sqM) Est GFR (CKD-EPI)NonAf (>60 ml/min/1.73 sqM) Glucose (74-99) mg/dL Calcium (8.4-10.2) mg/dL Magnesium (1.6-2.3) mg/dL Troponin I 0.014 (0.000-0.034) ng/mL NT-Pro-B Natriuret Pep 801 pg/mL Disposition Clinical Impression: DANA (acute kidney injury), Hypokalemia, Shortness of breath, Dizziness Disposition: ADMITTED IP TO THIS HOSP Referrals: Jairo Levi DO [Primary Care Provider] - 1-2 days Decision to Admit Reason: Admit from EC Decision Date: 03/18/18 Decision Time: 18:09
[2018-03-18] MEDS ORDERED: SODIUM CHLORIDE 0.9% 1,000 ML IV SCH (15:30)
--- NOTE | 2018-03-18 17:21 | NM ---
EXAMINATION TYPE: NM pul vent and perfuse DATE OF EXAM: 03/18/2018 COMPARISON: Chest radiograph earlier the same day HISTORY: Dyspnea, elevated d-dimer, low GFR TECHNIQUE: Utilizing inhalation of 38.9 mCi Tc 99m DTPA aerosol and intravenous injection of 5.4 mCi of Tc 99m MAA, ventilation and perfusion images are acquired post injection in multiple projections. FINDINGS: Normal radiotracer distribution is noted in the lungs. There is no evidence of mismatched or matched ventilation/perfusion defects. Study is correlated with the PA and lateral chest radiograph performed earlier the same day. IMPRESSION: Low probability for pulmonary embolism.
[2018-03-18] MEDS ORDERED: NALOXONE 0.4 MG/ML 1 ML VIAL IV PRN (18:10)
[2018-03-18] MEDS ORDERED: ALPRAZolam 0.25 MG TAB PO PRN (18:13)
[2018-03-18] MEDS ORDERED: NITROGLYCERIN SL TABS 0.4 MG TAB SUBLINGUAL PRN (18:13)
[2018-03-18] MEDS ORDERED: ALBUTEROL NEBULIZED 2.5 MG/3 ML INHALATION PRN (18:13)
[2018-03-18 18:20] LABS: Amorphous Sediment,Urine Rare /hpf; Appearance,Urine Clear (Clear); Bacteria,Urine Moderate /hpf; Bilirubin,Urine Negative (Negative); Blood,Urine Trace (Negative); Color,Urine Light Yellow; Glucose,Urine (UA) Negative (Negative); Granular Casts,Urine 6 /lpf (0); Hyaline Casts,Urine 12 /lpf (0-2); Ketones,Urine Negative (Negative); Leukocyte Esterase,Urine Negative (Negative); Mucus,Urine Rare /hpf; Nitrite,Urine Negative (Negative); PH, Urine 5.5 (5.0-8.0); Protein,Urine 1+ (Negative); RBC,Urine 1 /hpf (0-5); Specific Gravity,Urine 1.007 (1.001-1.035); Squamous Epithelial Cell,Urine 1 /hpf (0-4); Urobilinogen,Urine <2.0 mg/dL (<2.0)
[2018-03-18] MEDS ORDERED: ACETAMINOPHEN TAB 500 MG TAB PO PRN (19:04)
[2018-03-18] MEDS ORDERED: TEMAZEPAM 15 MG CAP PO PRN (19:04)
[2018-03-18] MEDS ORDERED: INSULIN LISPRO (For Pump) 100 UNIT/ML VIAL SQ-PUMP SCH (19:15)
[2018-03-18] MEDS ORDERED: ATORVASTATIN 80 MG TAB PO SCH (21:00)
[2018-03-18] MEDS ORDERED: CYCLOBENZAPRINE 10 MG TAB PO SCH (21:00)
[2018-03-18 21:39] VITALS: BMI 29.7
[2018-03-18] MEDS ORDERED: INSPUCOR MISCELLANE PRN (22:02)
[2018-03-18] MEDS: HEPARIN SODIUM,PORCINE 5,000 UNIT/ML 1 ML VIAL SQ SCH (22:20)
[2018-03-18] MEDS: traMADol 50 MG TAB PO SCH (22:21)
[2018-03-18] MEDS: FUROSEMIDE 40 MG TAB PO SCH (22:22)
[2018-03-18] MEDS: 0.9% NACL WITH KCL 40 MEQ/L 1,000 ML IV SCH (22:22)
[2018-03-18 22:23] LABS: Glucose,Whole Blood 171 mg/dL (75-99)
[2018-03-18] MEDS: POTASSIUM CHLORIDE ER 20 MEQ TAB.ER PO SCH (23:48)
--- NOTE | 2018-03-19 02:09 | P.CNNES ---
History of Present Illness Consult date: 03/18/18 Reason for Consult: Patient admitted with chronic dizziness for 2 weeks. History of Present Illness: This patient is a 63-year-old right-handed white female who was admitted today through the emergency room for evaluation of shortness of breath and chronic dizziness and vertigo. Patient states her symptoms began about 2 weeks ago in which she was having true vertigo symptoms and spinning sensation every time she would get up and ambulate. She was unable to walk very far without feeling symptomatic and having to sit down or hold onto the [place] in her home. She denied any recent falls. She states the symptoms have been ongoing for over 2 weeks. She has seen her primary care physician Dr. Levi in February but she was asymptomatic at that time. Patient also has been complaining of chronic shortness of breath. This is been ongoing for years. She has never been seen or evaluated by pulmonary medicine in regards to her shortness of breath. Due to her worsening symptoms over the last week the patient decided today to come to the emergency room. She was brought into the emergency room at [facility] for evaluation today. She was seen in the ER by Dr. Lynn. She was sent for a computed tomography scan of the brain as well as a perfusion study of the lungs to rule out pulmonary embolus. CAT scan of the brain revealed no acute intracranial abnormality. Lung perfusion study revealed low probability for pulmonary embolus. Patient was advised admission to the hospital for further evaluation. Neurology was consulted for further assessment of her chronic dizziness. On further evaluation today at bedside the patient states she has had issues with vertigo many years ago and was seen by the ENT specialist at the time Dr. Pinedo and Dr. Chavez. No treatment was offered and she has never used meclizine in the past for any of her symptoms of dizziness or vertigo. Patient states that 2 years ago she had to undergo a pacemaker and defibrillator placement which was performed by Dr. Nagel. She has undergone cardiac catheterization with stent placement as well. She states she was on a blood thinner. Review of her current medications reveals no antiplatelet agent or newer anticoagulants. We have recommended patient to follow-up with Dr. Nagel in terms of which blood thinner she thinks she should be taking. Patient states that her symptoms of dizziness worsen if she gets up and ambulates. Head movements also can worsen her condition. She does get some nausea symptoms but has not had any severe nausea vomiting associated with these episodes were the past 2 weeks. She denies any severe headache pain at this time. Apparently she does have some carotid artery disease in the past but has not had any recent carotid Doppler ultrasound study done. She does also suffer from diabetes mellitus and renal failure. She is stage III stage IV level of acute renal injury. She is followed in the nephrology clinic. Patient states that she has been ambulating with the use of a wheelchair at home that she has been dealing with chronic ulcers on her feet. She states she is able to use a wheelchair much easier at home and does so. Patient denies any recent history of head trauma or head injury. She has a history of having undergone bariatric surgery in the past. When asked about the shortness of breath apparently this has been ongoing for years. She has mentioned this to her primary care physician Dr. Levi but has not had any further workup for this condition. She denies any history of COPD or asthma. 6 etiology of her shortness of breath is still unknown. Patient is now been admitted and neurology has been consulted for further evaluation and recommendations. Review of Systems Constitutional: Denies chills, Denies fever Eyes: denies blurred vision, denies pain Ears: bilateral: decreased hearing, deny: ear discharge, earache, tinnitus Ears, nose, mouth and throat: Reports vertigo, Denies headache, Denies sore throat Cardiovascular: Reports dyspnea on exertion, Reports lightheadedness, Denies chest pain, Denies shortness of breath Respiratory: Denies cough Gastrointestinal: Denies abdominal pain, Denies diarrhea, Denies nausea, Denies vomiting Genitourinary: Denies dysuria, Denies hematuria Musculoskeletal: Denies myalgias Integumentary: Denies pruritus, Denies rash Neurological: Reports ataxia, Reports gait dysfunction, Reports syncope, Reports vertigo, Denies numbness, Denies weakness Psychiatric: Denies anxiety, Denies depression Endocrine: Denies fatigue, Denies weight change Past Medical History Past Medical History: Asthma, Coronary Artery Disease (CAD), Chest Pain / Angina , Diabetes Mellitus, Eye Disorder, Fibromyalgia, GERD/Reflux, Hyperlipidemia, Hypertension, Myocardial Infarction ([place]), Osteoarthritis (OA), Pneumonia, Renal Disease, Syncope, Vascular Disorder Additional Past Medical History / Comment(s): IDDM type II with insulin pump. numbness and tingling bilateral feet, PAD. PAST FOOT ULCERS Carotid artery disease. anemia. 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 BRUISES EASILY. SHORT OF BREATH,BALANCE ISSUES AND LIGHTHEADED W/ ACTIVITY. Last Myocardial Infarction Date:: 02/12/2016 History of Any Multi-Drug Resistant Organisms: None Reported Past Surgical History: Adenoidectomy, AICD, Bariatric Surgery, Cholecystectomy, Heart Catheterization, Heart Catheterization With Stent, Hernia Repair, Joint Replacement, Tonsillectomy Additional Past Surgical History / Comment(s): 02-11-16 RT anterior tibial artery PTBA with post procedure hematoma, 01/16/16 L fem/pop arthrectomy with PTBA/stent. Peripheral angiogram, LT hand pinky finger amputated. L arm surgery for staph infection. 3 hernia repairs. hiatal hernia repair, lap band placed, removed, THEN gastric sleeve. bilateral cataract removal, XAVIER SHOULDER manipulation, lt elbow drained d/t staph infection 2005 Past Anesthesia/Blood Transfusion Reactions: Postoperative Nausea & Vomiting ( PONV) Additional Past Anesthesia/Blood Transfusion Reaction / Comment(s): LAST Blood Transfusion, 02/2016. Date of Last Stent Placement:: 02/2016 Type of Cardiac Device: AICD Device Placement Date:: Past Psychological History: Anxiety, Depression Additional Psychological History / Comment(s): She is getting around in a wheelchair now. Smoking Status: Former smoker Past Alcohol Use History: None Reported Additional Past Alcohol Use History / Comment(s): Pt started smoking at the age of 11 and quit smoking many yrs ago (before 1984). Past Drug Use History: None Reported - Past Family History Father Family Medical History: Diabetes Mellitus, Vascular Disorder Additional Family Medical History / Comment(s): from vascular disorder, leg amputation. Mother Family Medical History: Deep Vein Thrombosis (DVT) Additional Family Medical History / Comment(s): Patient states "mom has had several back surgies, encephalopathy of the brain, and dementia". Medications and Allergies Home Medications Medication Instructions Recorded Confirmed Type Omeprazole [PriLOSEC] 40 mg PO AC-BRKFST 08/06/14 03/18/18 History Cyclobenzaprine [Flexeril] 10 mg PO HS 07/03/15 03/18/18 History Nitroglycerin Sl Tabs [Nitrostat] 0.4 mg SUBLINGUAL Q5M PRN #25 tab 02/18/1602/23 Rx Escitalopram [Lexapro] 20 mg PO DAILY 09/23/16 03/18/18 History Metoprolol Succinate [Toprol XL] 25 mg PO DAILY 09/23/16 03/18/18 History Albuterol Inhaler [Ventolin Hfa 2 puff INHALATION Q4HR PRN #1 10/22/16 03/18/18 Rx Inhaler] inhaler Rosuvastatin Calcium 40 mg PO HS 10/22/16 03/18/18 History ALPRAZolam [Xanax] 0.25 mg PO TID PRN #40 tab 10/27/16 03/18/18 Rx Aspirin 81 mg PO DAILY 10/27/16 03/18/18 Rx Clopidogrel [Plavix] 75 mg PO DAILY tab 10/27/16 03/18/18 Rx INSULIN LISPRO (For Pump) [humaLOG 0.01 units SQ-PUMP CONTINUOUS #0 10/27/1602/23 Rx (For Pump)] Calcitriol 0.5 mcg PO MOTH 03/18/18 03/18/18 History Ergocalciferol (Vitamin D2) 50,000 unit PO Q30D 03/18/18 03/18/18 History [Vitamin D2] Ferrous Sulfate [Feosol] 325 mg PO DAILY 03/18/18 03/18/18 History Furosemide [Lasix] 40 mg PO BID 03/18/18 03/18/18 History Potassium Chloride ER [K-Dur 10] 10 meq PO BID 03/18/18 03/18/18 History traMADol HCL [Ultram] 50 mg PO BID 03/18/18 03/18/18 History Allergies Allergy/AdvReac Type Severity Reaction Status Date / Time adhesive tape Allergy Rash/Hives Verified 03/18/18 13:04 Penicillins Allergy Rash/Hives Verified 03/18/18 13:04 atorvastatin AdvReac Myalgia Verified 03/18/18 13:04 hydromorphone [From Dilaudid] AdvReac Unknown Verified 03/18/18 13:04 meperidine HCl [From Demerol] AdvReac Hallucinati Verified 03/18/18 13:04 ons Physical Examination - Vital Signs Vital Signs: Vital Signs Temp Pulse Pulse Resp BP BP Pulse Ox 03/18/18 21:00 68 14 115/64 03/18/18 20:08 65 03/18/18 20:00 98.4 F 63 18 107/57 100 03/18/18 19:43 65 03/18/18 19:24 61 18 115/64 98 03/18/18 19:20 62 15 111/65 03/18/18 17:39 62 18 111/65 97 03/18/18 15:24 67 18 98/60 100 03/18/18 13:26 78 18 123/75 96 03/18/18 12:32 98.5 F 88 18 111/72 99 Intake and Output 03/18/18 03/18/18 03/19/18 14:59 22:59 06:59 Other: Voiding Method Bedside Commode Weight 80.739 kg 81.193 kg - Constitutional General appearance: average body habitus, cooperative - EENT EENT: PERRL, mucous membranes moist - Respiratory Respiratory: lungs clear, normal breath sounds - Cardiovascular Cardiovascular: regular rate, normal S1, normal S2 Extremities: no peripheral edema bilaterally - Gastrointestinal Gastrointestinal: normoactive bowel sounds - Neurologic Cranial nerve examination: PERRL, EOMI, VFF, anisocoria, V1/V2/V3 grossly intact , intact gag reflex, intact corneal reflex, normal palatal elevation Speech examination: intact Sensorimotor examination: intact Motor examination - right side: 4/5: biceps, triceps, wrist flexion, wrist extension, refurbish technician, hip flexors, knee extensors, dorsiflexion, toe extension (EHL) , plantarflexion Motor examination - left side: 4/5: biceps, triceps, wrist flexion, wrist extension, refurbish technician, hip flexors, knee extensors, dorsiflexion, toe extension (EHL) , plantarflexion Detailed sensory examination: intact Reflex and gait examination: intact Reflexes: 1+: ankle, bicep, knee, tricep - Musculoskeletal Musculoskeletal: no pain - Psychiatric Psychiatric: mood/affect appropriate, cooperative Results - Laboratory Findings CBC and BMP: 03/18/18 13:22 03/18/18 23:01 Abnormal Lab Findings: Abnormal Labs 03/18/18 03/18/18 03/18/18 13:22 13:22 17:50 D-Dimer 0.86 H Potassium 2.7 L* Chloride 94 L Carbon Dioxide 33 H BUN 35 H Creatinine 2.10 H Glucose 204 H POC Glucose (mg/dL) Magnesium 2.7 H Urine Protein 1+ H Urine Blood Trace H Amorphous Sediment Rare H Urine Bacteria Moderate H Hyaline Casts 12 H Urine Mucus Rare H 03/18/18 22:22 D-Dimer Potassium Chloride Carbon Dioxide BUN Creatinine Glucose POC Glucose (mg/dL) 171 H Magnesium Urine Protein Urine Blood Amorphous Sediment Urine Bacteria Hyaline Casts Urine Mucus Assessment and Plan (1) Benign paroxysmal positional vertigo due to bilateral vestibular disorder Current Visit: Yes Status: Acute Code(s): H81.13 - BENIGN PAROXYSMAL VERTIGO , BILATERAL SNOMED Code(s): 665153786 (2) Dizziness Current Visit: Yes Status: Acute Code(s): R42 - DIZZINESS AND GIDDINESS SNOMED Code(s): 577244444 (3) DANA (acute kidney injury) Current Visit: Yes Status: Acute Code(s): N17.9 - ACUTE KIDNEY FAILURE, UNSPECIFIED SNOMED Code(s): 40517544 (4) CAD (coronary artery disease) Current Visit: No Status: Acute Code(s): I25.10 - ATHSCL HEART DISEASE OF [place] CORONARY ARTERY W/O ANG PCTRS SNOMED Code(s): 51964458 (5) S/P cardiac catheterization Current Visit: No Status: Acute Code(s): Z98.89 - OTHER SPECIFIED POSTPROCEDURAL STATES * DO NOT USE * SNOMED Code(s): 26834404320989 (6) Triple vessel coronary artery disease Current Visit: No Status: Acute Code(s): I25.10 - ATHSCL HEART DISEASE OF [place] CORONARY ARTERY W/O ANG PCTRS SNOMED Code(s): 699391691 Plan: This patient is a 63-year-old female who was admitted to [facility] for evaluation of intractable dizziness and shortness of breath. Patient has been symptomatic with vertigo for over 2 weeks. She has not been treated with any specific medication for this condition. She mentions her symptoms worsened and this was her reason for coming to the emergency room at [facility] today. She was seen in the ER by Dr. Lynn. She was sent for a computed tomography scan of the brain from the ER which came back with no acute intracranial abnormality. Due to her shortness of breath she was also referred for a ventilation perfusion study of the lungs. The results came back low probability for pulmonary embolus. Patient gives a history of recurrent vertigo over the years. Her symptoms appear to be possibly more related to positional changes of her head. This would raise the suspicion for positional vertigo secondary to labyrinthitis. Her neurological examination at this time is nonfocal. Clinical history suggests BPPV as possible underlying etiology. She does not show significant central nervous system changes on examination at this time. We would recommend however patient to have a repeat computed tomography scan on Tuesday as she is unable to go for MRI of the brain. Patient has a AICD defibrillator in place and for this reason is unable to have MRI study done. We would recommend the patient be seen by pulmonary medicine regarding her shortness of breath. As noted her perfusion study came back negative for pulmonary embolus. Her neurological examination today at bedside fails to reveal any focal weakness. Clinical history does suggest benign paroxysmal positional vertigo. We have suggested patient to continue to use a low sodium diet. Would also recommend placing her on Antivert 12.5 mg by mouth twice a day for 1-2 weeks. Patient states she has never been prescribed Antivert in the past for vertigo. We've also recommended the patient to schedule an outpatient visit in the ENT clinic with either Dr. Smalls or Dr. Knight. Her neurological examination at this time remains nonfocal. We will continue close neurological follow-up for the patient during this admission. Her overall prognosis at this time remains guarded. We will continue close neurological follow-up of this patient during this admission. Time with Patient: Greater than 30
[2018-03-19 05:56] LABS: Glucose,Whole Blood 109 mg/dL (75-99)
[2018-03-19 06:20] LABS: Basophils % (A) 0 %; Eosinophils # (A) 0.2 k/uL (0-0.7); Eosinophils % (A) 3 %; HCT 37.4 % (34.0-46.0); Lymphocytes # (A) 3.2 k/uL (1.0-4.8); Lymphocytes % (A) 46 %; MCH 28.6 pg (25.0-35.0); MCHC 33.4 g/dL (31.0-37.0); MCV 85.9 fL (80.0-100.0); Mean Platelet Volume 6.8; Monocytes # (A) 0.3 k/uL (0-1.0); Monocytes % (A) 4 %; Neutrophils # (A) 3.1 k/uL (1.3-7.7); Neutrophils % (A) 45 %; Platelet Count 244 k/uL (150-450); RBC 4.35 m/uL (3.80-5.40); RDW 13.1 % (11.5-15.5)
[2018-03-19 06:32] LABS: Calcium 8.8 mg/dL (8.4-10.2); HGB 12.5 gm/dL (11.4-16.0); Potassium 3.6 mmol/L (3.5-5.1)
[2018-03-19] MEDS ORDERED: PANTOPRAZOLE 40 MG TABLET PO SCH (07:30)
[2018-03-19] MEDS ORDERED: CLOPIDOGREL 75 MG TAB PO SCH (09:00)
[2018-03-19] MEDS ORDERED: METOPROLOL SUCCINATE (ER) 25 MG TAB.ER.24H PO SCH (09:00)
[2018-03-19] MEDS ORDERED: MECLIZINE 12.5 MG TAB PO SCH (09:00)
[2018-03-19] MEDS ORDERED: FERROUS SULFATE 325 MG TAB PO SCH (09:00)
[2018-03-19] MEDS ORDERED: ASPIRIN 81 MG PO SCH (09:00)
[2018-03-19] MEDS ORDERED: ESCITALOPRAM 20 MG TAB PO SCH (09:00)
[2018-03-19] MEDS: traMADol 50 MG TAB PO SCH (09:21)
[2018-03-19] MEDS: POTASSIUM CHLORIDE ER 20 MEQ TAB.ER PO SCH (09:22)
[2018-03-19] MEDS: HEPARIN SODIUM,PORCINE 5,000 UNIT/ML 1 ML VIAL SQ SCH (09:22)
[2018-03-19] MEDS: FUROSEMIDE 40 MG TAB PO SCH (09:22)
[2018-03-19] MEDS: 0.9% NACL WITH KCL 40 MEQ/L 1,000 ML IV SCH (09:24)
[2018-03-19 10:10] VITALS: RESP 18
[2018-03-19] MEDS ORDERED: POTASSIUM CHLORIDE ER 20 MEQ TAB.ER PO STA (11:16)
--- NOTE | 2018-03-19 11:27 | P.DS ---
Providers Date of admission: 03/18/18 18:10 Attending physician: Wily Morse Consults: 03/18/18 18:10 Consult Physician Routine Consulting Provider: Timothy Skinner Consult Reason/Comments: r/o posterior stroke Do you want consulting provider notified?: Yes, Notify in am Primary care physician: Jairo Levi [facility] Course: As mentioned in HPI Plan - Discharge Summary Discharge Rx Participant: No New Discharge Prescriptions: New Meclizine [Antivert] 25 mg PO TID PRN #20 tab PRN Reason: Vertigo No Action Omeprazole [PriLOSEC] 40 mg PO AC-BRKFST Cyclobenzaprine [Flexeril] 10 mg PO HS Nitroglycerin Sl Tabs [Nitrostat] 0.4 mg SUBLINGUAL Q5M PRN #25 tab PRN Reason: Chest Pain Metoprolol Succinate [Toprol XL] 25 mg PO DAILY Escitalopram [Lexapro] 20 mg PO DAILY Rosuvastatin Calcium 40 mg PO HS Albuterol Inhaler [Ventolin Hfa Inhaler] 2 puff INHALATION Q4HR PRN #1 inhaler PRN Reason: Dyspnea ALPRAZolam [Xanax] 0.25 mg PO TID PRN #40 tab PRN Reason: Anxiety Clopidogrel [Plavix] 75 mg PO DAILY tab INSULIN LISPRO (For Pump) [humaLOG (For Pump)] 0.01 units SQ-PUMP CONTINUOUS #0 Aspirin 81 mg PO DAILY Furosemide [Lasix] 40 mg PO BID Ferrous Sulfate [Feosol] 325 mg PO DAILY traMADol HCL [Ultram] 50 mg PO BID Ergocalciferol (Vitamin D2) [Vitamin D2] 50,000 unit PO Q30D Calcitriol 0.5 mcg PO MOTH Potassium Chloride ER [K-Dur 10] 10 meq PO BID Discharge Medication List Omeprazole [PriLOSEC] 40 mg PO AC-BRKFST 08/06/14 [History] Cyclobenzaprine [Flexeril] 10 mg PO HS 07/03/15 [History] Nitroglycerin Sl Tabs [Nitrostat] 0.4 mg SUBLINGUAL Q5M PRN #25 tab 02/18/16 [Rx ] Escitalopram [Lexapro] 20 mg PO DAILY 09/23/16 [History] Metoprolol Succinate [Toprol XL] 25 mg PO DAILY 09/23/16 [History] Albuterol Inhaler [Ventolin Hfa Inhaler] 2 puff INHALATION Q4HR PRN #1 inhaler 10/22/16 [Rx] Rosuvastatin Calcium 40 mg PO HS 10/22/16 [History] ALPRAZolam [Xanax] 0.25 mg PO TID PRN #40 tab 10/27/16 [Rx] Aspirin 81 mg PO DAILY 10/27/16 [Rx] Clopidogrel [Plavix] 75 mg PO DAILY tab 10/27/16 [Rx] INSULIN LISPRO (For Pump) [humaLOG (For Pump)] 0.01 units SQ-PUMP CONTINUOUS #0 10/27/16 [Rx] Calcitriol 0.5 mcg PO MOTH 03/18/18 [History] Ergocalciferol (Vitamin D2) [Vitamin D2] 50,000 unit PO Q30D 03/18/18 [History] Ferrous Sulfate [Feosol] 325 mg PO DAILY 03/18/18 [History] Furosemide [Lasix] 40 mg PO BID 03/18/18 [History] Potassium Chloride ER [K-Dur 10] 10 meq PO BID 03/18/18 [History] traMADol HCL [Ultram] 50 mg PO BID 03/18/18 [History] Meclizine [Antivert] 25 mg PO TID PRN #20 tab 03/19/18 [Rx] Follow up Appointment(s)/Referral(s): Jairo Levi DO [Primary Care Provider] - 3 Days
--- NOTE | 2018-03-19 11:27 | P.HPIM ---
History of Present Illness 63-year-old the pleasant female came in with complaints of dizziness and vertiginous symptoms whenever she moves around without any hearing problems unstable gait. Patient was evaluated by neurology and they believe patient has benign push vertigo her symptoms completely improved at this time. 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 EKG did not show any significant abnormality denied any chest pain or shortness of breath has been going on for last 2 years. Patient to had evaluation for pulmonary embolism because of her Shortness of breath she had a VQ scan which is negative patient has chronic kidney disease stage IV secondary to hypertensive nephrosclerosis. Patient's creatinine is at her baseline. Patient has an AICD ejection fraction of 20-25% not it not in acute exacerbation. Patient has moderate pulmonary hypertension as well. Her shortness of breath is probably multifactorial because of her above-mentioned the chronic medical issues. Patient will be discharged today on as-needed basis meclizine no further evaluation is needed and the neurologist is recommending an outpatient CAT scan repeat tomorrow. Review of Systems REVIEW OF SYSTEMS: CONSTITUTIONAL: No fever, no malaise, no fatigue. HEENT: No recent visual problems or hearing problems. Denied any sore throat. CARDIOVASCULAR: No chest pain, orthopnea, PND, no palpitations, no syncope. PULMONARY: no cough, no hemoptysis. GASTROINTESTINAL: No diarrhea, no nausea, no vomiting, no abdominal pain. Normoactive bowel sounds. NEUROLOGICAL: No headaches, no weakness, no numbness. HEMATOLOGICAL: Denies any bleeding or petechiae. GENITOURINARY: Denies any burning micturition, frequency, or urgency. MUSCULOSKELETAL/RHEUMATOLOGICAL: Denies any joint pain, swelling, or any muscle pain. ENDOCRINE: Denies any polyuria or polydipsia. The rest of the 14-point review of systems is negative. Past Medical History Past Medical History: Asthma, Coronary Artery Disease (CAD), Chest Pain / Angina , Diabetes Mellitus, Eye Disorder, Fibromyalgia, GERD/Reflux, Hyperlipidemia, Hypertension, Myocardial Infarction (PA), Osteoarthritis (OA), Pneumonia, Renal Disease, Syncope, Vascular Disorder Additional Past Medical History / Comment(s): IDDM type II with insulin pump. numbness and tingling bilateral feet, PAD. PAST FOOT ULCERS Carotid artery disease. anemia. 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 BRUISES EASILY. SHORT OF BREATH,BALANCE ISSUES AND LIGHTHEADED W/ ACTIVITY. Last Myocardial Infarction Date:: 02/12/2016 History of Any Multi-Drug Resistant Organisms: None Reported Past Surgical History: Adenoidectomy, AICD, Bariatric Surgery, Cholecystectomy, Heart Catheterization, Heart Catheterization With Stent, Hernia Repair, Joint Replacement, Tonsillectomy Additional Past Surgical History / Comment(s): 02-11-16 RT anterior tibial artery PTBA with post procedure hematoma, 01/16/16 L fem/pop arthrectomy with PTBA/stent. Peripheral angiogram, LT hand pinky finger amputated. L arm surgery for staph infection. 3 hernia repairs. hiatal hernia repair, lap band placed, removed, THEN gastric sleeve. bilateral cataract removal, XAVIER SHOULDER manipulation, lt elbow drained d/t staph infection 2005 Past Anesthesia/Blood Transfusion Reactions: Postoperative Nausea & Vomiting ( PONV) Additional Past Anesthesia/Blood Transfusion Reaction / Comment(s): LAST Blood Transfusion, 02/2016. Date of Last Stent Placement:: 02/2016 Type of Cardiac Device: AICD Device Placement Date:: Past Psychological History: Anxiety, Depression Additional Psychological History / Comment(s): She is getting around in a wheelchair now. Smoking Status: Former smoker Past Alcohol Use History: None Reported Additional Past Alcohol Use History / Comment(s): Pt started smoking at the age of 11 and quit smoking many yrs ago (before 1984). Past Drug Use History: None Reported - Past Family History Father Family Medical History: Diabetes Mellitus, Vascular Disorder Additional Family Medical History / Comment(s): from vascular disorder, leg amputation. Mother Family Medical History: Deep Vein Thrombosis (DVT) Additional Family Medical History / Comment(s): Patient states "mom has had several back surgies, encephalopathy of the brain, and dementia". Medications and Allergies Home Medications Medication Instructions Recorded Confirmed Type Omeprazole [PriLOSEC] 40 mg PO AC-BRKFST 08/06/14 03/18/18 History Cyclobenzaprine [Flexeril] 10 mg PO HS 07/03/15 03/18/18 History Nitroglycerin Sl Tabs [Nitrostat] 0.4 mg SUBLINGUAL Q5M PRN #25 tab 02/18/1602/23 Rx Escitalopram [Lexapro] 20 mg PO DAILY 09/23/16 03/18/18 History Metoprolol Succinate [Toprol XL] 25 mg PO DAILY 09/23/16 03/18/18 History Albuterol Inhaler [Ventolin Hfa 2 puff INHALATION Q4HR PRN #1 10/22/16 03/18/18 Rx Inhaler] inhaler Rosuvastatin Calcium 40 mg PO HS 10/22/16 03/18/18 History ALPRAZolam [Xanax] 0.25 mg PO TID PRN #40 tab 10/27/16 03/18/18 Rx Aspirin 81 mg PO DAILY 10/27/16 03/18/18 Rx Clopidogrel [Plavix] 75 mg PO DAILY tab 10/27/16 03/18/18 Rx INSULIN LISPRO (For Pump) [humaLOG 0.01 units SQ-PUMP CONTINUOUS #0 10/27/1602/23 Rx (For Pump)] Calcitriol 0.5 mcg PO MOTH 03/18/18 03/18/18 History Ergocalciferol (Vitamin D2) 50,000 unit PO Q30D 03/18/18 03/18/18 History [Vitamin D2] Ferrous Sulfate [Feosol] 325 mg PO DAILY 03/18/18 03/18/18 History Furosemide [Lasix] 40 mg PO BID 03/18/18 03/18/18 History Potassium Chloride ER [K-Dur 10] 10 meq PO BID 03/18/18 03/18/18 History traMADol HCL [Ultram] 50 mg PO BID 03/18/18 03/18/18 History Allergies Allergy/AdvReac Type Severity Reaction Status Date / Time adhesive tape Allergy Rash/Hives Verified 03/18/18 13:04 Penicillins Allergy Rash/Hives Verified 03/18/18 13:04 atorvastatin AdvReac Myalgia Verified 03/18/18 13:04 hydromorphone [From Dilaudid] AdvReac Unknown Verified 03/18/18 13:04 meperidine HCl [From Demerol] AdvReac Hallucinati Verified 03/18/18 13:04 ons Physical Exam Vitals: Vital Signs Temp Pulse Pulse Resp BP BP Pulse Ox 03/19/18 08:00 96.9 F L 54 L 18 98/57 98 03/19/18 04:00 98.0 F 51 L 16 103/55 95 03/19/18 00:00 98.2 F 65 16 106/55 95 03/18/18 21:00 68 14 115/64 03/18/18 20:08 65 03/18/18 20:00 98.4 F 63 18 107/57 100 03/18/18 19:43 65 03/18/18 19:24 61 18 115/64 98 03/18/18 19:20 62 15 111/65 03/18/18 17:39 62 18 111/65 97 03/18/18 15:24 67 18 98/60 100 03/18/18 13:26 78 18 123/75 96 03/18/18 12:32 98.5 F 88 18 111/72 99 Intake and Output 03/18/18 03/19/18 03/19/18 22:59 06:59 14:59 Intake Total 480 240 Balance 480 240 Intake: Oral 480 240 Other: Voiding Method Bedside Commode Bedside Commode Bedside Commode Weight 81.193 kg 81.2 kg PHYSICAL EXAMINATION: GENERAL: The patient is alert and oriented x3, not in any acute distress. Well developed, well nourished. HEENT: Pupils are round and equally reacting to light. EOMI. No scleral icterus. No conjunctival pallor. Normocephalic, atraumatic. No pharyngeal erythema. No thyromegaly. CARDIOVASCULAR: S1 and S2 present. No murmurs, rubs, or gallops. PULMONARY: Chest is clear to auscultation, no wheezing or crackles. ABDOMEN: Soft, nontender, nondistended, normoactive bowel sounds. No palpable organomegaly. MUSCULOSKELETAL: No joint swelling or deformity. EXTREMITIES: No cyanosis, clubbing, or pedal edema. NEUROLOGICAL: Gross neurological examination did not reveal any focal deficits. SKIN: No rashes. Results CBC & Chem 7: 03/19/18 05:16 03/19/18 05:16 Labs: Abnormal Lab Results - Last 24 Hours (Table) 03/18/18 03/18/18 03/18/18 Range/Units 13:22 13:22 17:50 D-Dimer 0.86 H (<0.60) mg/L FEU Potassium 2.7 L* (3.5-5.1) mmol/L Chloride 94 L (98-107) mmol/L Carbon Dioxide 33 H (22-30) mmol/L BUN 35 H (7-17) mg/dL Creatinine 2.10 H (0.52-1.04) mg/dL Glucose 204 H (74-99) mg/dL POC Glucose (mg/dL) (75-99) mg/dL Magnesium 2.7 H (1.6-2.3) mg/dL Urine Protein 1+ H (Negative) Urine Blood Trace H (Negative) Amorphous Sediment Rare H (None) /hpf Urine Bacteria Moderate H (None) /hpf Hyaline Casts 12 H (0-2) /lpf Urine Mucus Rare H (None) /hpf 03/18/18 03/18/18 03/19/18 Range/Units 22:22 23:01 05:16 D-Dimer (<0.60) mg/L FEU Potassium 2.9 L (3.5-5.1) mmol/L Chloride (98-107) mmol/L Carbon Dioxide 31 H (22-30) mmol/L BUN 28 H (7-17) mg/dL Creatinine 1.96 H (0.52-1.04) mg/dL Glucose 113 H (74-99) mg/dL POC Glucose (mg/dL) 171 H (75-99) mg/dL Magnesium (1.6-2.3) mg/dL Urine Protein (Negative) Urine Blood (Negative) Amorphous Sediment (None) /hpf Urine Bacteria (None) /hpf Hyaline Casts (0-2) /lpf Urine Mucus (None) /hpf 03/19/18 Range/Units 05:55 D-Dimer (<0.60) mg/L FEU Potassium (3.5-5.1) mmol/L Chloride (98-107) mmol/L Carbon Dioxide (22-30) mmol/L BUN (7-17) mg/dL Creatinine (0.52-1.04) mg/dL Glucose (74-99) mg/dL POC Glucose (mg/dL) 109 H (75-99) mg/dL Magnesium (1.6-2.3) mg/dL Urine Protein (Negative) Urine Blood (Negative) Amorphous Sediment (None) /hpf Urine Bacteria (None) /hpf Hyaline Casts (0-2) /lpf Urine Mucus (None) /hpf Thrombosis Risk Factor Assmnt - Choose All That Apply Any of the Below Risk Factors Present?: Yes Each Factor Represents 1 point: Obesity (BMI >25) Other Risk Factors: Yes Each Risk Factor Represents 2 Points: Age 61-74 years Each Risk Factor Represents 3 Points: Family history of DVT/PE Other congenital or acquired thrombophilia - If yes, enter type in comment: No Thrombosis Risk Factor Assessment Total Risk Factor Score: 6 Thrombosis Risk Factor Assessment Level: High Risk Assessment and Plan Plan: -Vertigo is probably benign push vertigo and peripheral vertigo: Patient in symptoms improved patient will be discharged on meclizine next and-shortness of breath multifactorial chronic secondary to moderate pulmonary hypertension along with chronic heart failure. Hypercholesterol failure chronic systolic dysfunction without any acute exacerbation, patient is not in asymmetry better patient blood pressure is 90 systolic patient may benefit from HALINA inhibitor at home patient will follow with Dr. Melendrez as an outpatient. Rule out pulmonary embolism moderate pulmonary hypertension secondary pulmonary hypertension from heart failure and left ventricular dysfunction -Coronary artery disease and ischemic any myopathy And-chronic kidney disease hypertensive nephrosclerosis -Asthma without any acute exacerbation -Gastroesophageal reflux disease -Hypertension next and heparin hyperlipidemia -Peripheral vascular disease For above-mentioned chronic medical problems patient will resume and continued on appropriate home medications
[2018-03-19 11:52] LABS: Glucose,Whole Blood 182 mg/dL (75-99)
[2018-03-19 12:55] VITALS: BP 105/51; PULSE 57; TEMP 96
[2018-03-20] MEDS ORDERED: CALCITRIOL 0.25 MCG CAP PO SCH (09:00)
[2018-03-20 10:53] LABS: Hemoglobin A1C 10.1 % (4.0-6.0)
[2018-03-31] MEDS ORDERED: ERGOCALCIFEROL 50,000 UNIT CAP PO SCH (09:00)
== END 2018-03-19 13:31 | disposition home or self-care (01) ==
LOC: EC 12:25 → 3SCARD 18:10
PROVIDERS: ADMIT Internal Medicine; ATTEND Internal Medicine
DX: R42 Dizziness and giddiness (principal); R06.02 Shortness of breath; I25.5 Ischemic cardiomyopathy; I27.20 Pulmonary hypertension, unspecified; I25.10 Atherosclerotic heart disease of native coronary artery without angina pectoris; M79.7 Fibromyalgia; K21.9 Gastro-esophageal reflux disease without esophagitis; E78.5 Hyperlipidemia, unspecified; I25.2 Old myocardial infarction; M19.90 Unspecified osteoarthritis, unspecified site; Z87.01 Personal history of pneumonia (recurrent); I73.9 Peripheral vascular disease, unspecified; D64.9 Anemia, unspecified; E11.319 Type 2 diabetes mellitus with unspecified diabetic retinopathy without macular edema; H35.30 Unspecified macular degeneration; F41.9 Anxiety disorder, unspecified; E87.6 Hypokalemia; E11.22 Type 2 diabetes mellitus with diabetic chronic kidney disease; E11.51 Type 2 diabetes mellitus with diabetic peripheral angiopathy without gangrene; I13.0 Hypertensive heart and chronic kidney disease with heart failure and stage 1 through stage 4 chronic kidney disease, or unspecified chronic kidney disease; N18.4 Chronic kidney disease, stage 4 (severe); I50.22 Chronic systolic (congestive) heart failure; H81.10 Benign paroxysmal vertigo, unspecified ear; H81.399 Other peripheral vertigo, unspecified ear; J45.909 Unspecified asthma, uncomplicated; R79.89 Other specified abnormal findings of blood chemistry; F32.9 Major depressive disorder, single episode, unspecified; Z87.891 Personal history of nicotine dependence; Z90.49 Acquired absence of other specified parts of digestive tract; Z95.810 Presence of automatic (implantable) cardiac defibrillator; Z95.5 Presence of coronary angioplasty implant and graft; Z96.41 Presence of insulin pump (external) (internal); Z79.899 Other long term (current) drug therapy; Z79.82 Long term (current) use of aspirin; Z79.02 Long term (current) use of antithrombotics/antiplatelets; Z79.4 Long term (current) use of insulin; Z79.891 Long term (current) use of opiate analgesic; Z88.5 Allergy status to narcotic agent; Z88.0 Allergy status to penicillin; Z88.8 Allergy status to other drugs, medicaments and biological substances; Z91.048 Other nonmedicinal substance allergy status; Z83.2 Family history of diseases of the blood and blood-forming organs and certain disorders involving the immune mechanism; E66.9 Obesity, unspecified; Z68.29 Body mass index [BMI] 29.0-29.9, adult; Z95.828 Presence of other vascular implants and grafts; R11.0 Nausea; Z98.84 Bariatric surgery status; N17.9 Acute kidney failure, unspecified
CPT/HCPCS: 96361 ×3; 96372 ×2; 96365; 96366; 99285; 36415; 94640; 85379; 83880; 80048 ×2; 83735; 84132; 84484; 85025 ×2; 81001; 83036; 71046; 70450; 78582; G0378 ×2; A9540; A9567; J1644 ×2; J3480

== ENCOUNTER → 2018-05-05 | Outpatient (CLI) | payer MEDICARE ==
[2018-05-05 18:44] LABS: Anion Gap 8.5 mmol/L (4.00-12.00); Calcium 9.3 mg/dL (8.7-10.3); Carbon Dioxide 30.5 mmol/L (21.6-31.8); Potassium 3.3 mmol/L (3.5-5.5)
[2018-05-05 20:33] LABS: Hemoglobin A1C 8.4 % (4.0-6.0)
== END | disposition home or self-care (01) ==
LOC: LABWHC1 14:30
PROVIDERS: ATTEND Family Medicine
DX: E11.22 Type 2 diabetes mellitus with diabetic chronic kidney disease (principal); I12.9 Hypertensive chronic kidney disease with stage 1 through stage 4 chronic kidney disease, or unspecified chronic kidney disease; N18.9 Chronic kidney disease, unspecified
CPT/HCPCS: 36415; 80048; 83036

== ENCOUNTER → 2018-07-18 | Outpatient (CLI) | payer MEDICARE ==
[2018-07-18 12:55] LABS: HGB 14.8 gm/dL (11.4-16.0); MCH 29.1 pg (25.0-35.0); MCV 88.1 fL (80.0-100.0); Platelet Count 249 k/uL (150-450); RDW 12.7 % (11.5-15.5); WBC 7.8 k/uL (3.8-10.6)
[2018-07-18 19:46] LABS: Iron Saturation 22.95 (12.00-45.00)
[2018-07-18 19:56] LABS: Albumin 4.1 g/dL (3.80-4.90); Albumin/Globulin Ratio 1.58 (1.60-3.17); Anion Gap 10.4 mmol/L (4.00-12.00); Calcium 9.8 mg/dL (8.7-10.3); Carbon Dioxide 28.6 mmol/L (21.6-31.8); Globulin 2.6 g/dL (1.6-3.3); Phosphorus 3.9 mg/dL (2.4-5.1); Potassium 4.1 mmol/L (3.5-5.5); Total Bilirubin 0.8 mg/dL (0.3-1.2); Total Protein 6.7 g/dL (6.2-8.2); Uric Acid 7.5 mg/dL (2.9-7.7); Vitamin D 25 Hydroxy 39.4 ng/mL (30.0-100.0)
[2018-07-18 21:19] LABS: Parathyroid Hormone Intact 95.3 pg/mL (14.0-72.0)
== END ==
LOC: LABWHC1 11:23
PROVIDERS: ATTEND Nurse Practitioner Family
DX: N39.0 Urinary tract infection, site not specified (principal); E21.3 Hyperparathyroidism, unspecified; E55.9 Vitamin D deficiency, unspecified; M10.9 Gout, unspecified; D63.1 Anemia in chronic kidney disease; N18.3 Chronic kidney disease, stage 3 (moderate)
CPT/HCPCS: 36415; 80053; 82306; 82728; 83540; 83550; 83735; 83970; 84100; 84550; 85027

== ENCOUNTER 2018-09-30 16:45 | Observation (INO) | payer MEDICARE ==
[2018-09-30 17:12] LABS: Glucose,Whole Blood 245 mg/dL (75-99)
--- NOTE | 2018-09-30 17:14 | ED ---
General Adult HPI - General Chief complaint: Chest Pain Stated complaint: CHEST PAIN Time Seen by Provider: 09/30/18 16:48 Source: patient, EMS, RN notes reviewed, old records reviewed Mode of arrival: EMS Limitations: no limitations - History of Present Illness Initial comments: Chief complaint and history of present illness this is a 63-year-old female brought emergency room by embolus causative left-sided chest pain. Patient states the left axillary area pain started yesterday. Went away earlier today and then she got one sharp pain again. She decided to call EMS. She reports the pain can be reproduced by any twisting turning palpation and movement or deep breath to the same area. She states when she has angina-type issues and the past and usually her clavicles that hurt. This is different. Denies any injuries. Denies any rash. States she has chronic migrainous type headaches and chronic dizziness. - Related Data Home Medications Medication Instructions Recorded Confirmed Omeprazole [PriLOSEC] 40 mg PO AC-BRKFST 08/06/14 09/30/18 Cyclobenzaprine [Flexeril] 10 mg PO HS 07/03/15 09/30/18 Escitalopram [Lexapro] 20 mg PO DAILY 09/23/16 09/30/18 Rosuvastatin Calcium 40 mg PO HS 10/22/16 09/30/18 Calcitriol 0.5 mcg PO MOTH 03/18/18 09/30/18 Ergocalciferol (Vitamin D2) 50,000 unit PO Q30D 03/18/18 09/30/18 [Vitamin D2] Ferrous Sulfate [Feosol] 325 mg PO DAILY 03/18/18 09/30/18 Furosemide [Lasix] 40 mg PO BID 03/18/18 09/30/18 Potassium Chloride ER [K-Dur 10] 10 meq PO BID 03/18/18 09/30/18 traMADol HCL [Ultram] 50 mg PO BID 03/18/18 09/30/18 ALPRAZolam [Xanax] 0.25 mg PO DAILY PRN 09/30/18 09/30/18 Albuterol Inhaler [Ventolin Hfa 2 puff INHALATION RT-QID PRN 09/30/18 09/30/18 Inhaler] Metoprolol Succinate (ER) [Toprol 50 mg PO DAILY 09/30/18 09/30/18 Xl] Midodrine [ProAmatine] 5 mg PO BID 09/30/18 09/30/18 Previous Rx's Medication Instructions Recorded Nitroglycerin Sl Tabs [Nitrostat] 0.4 mg SUBLINGUAL Q5M PRN #25 tab 02/18/16 Aspirin 81 mg PO DAILY 10/27/16 Clopidogrel [Plavix] 75 mg PO DAILY tab 10/27/16 INSULIN LISPRO (For Pump) [humaLOG 0.01 units SQ-PUMP CONTINUOUS #0 10/27/16 (For Pump)] Allergies Allergy/AdvReac Type Severity Reaction Status Date / Time adhesive tape Allergy Rash/Hives Verified 09/30/18 17:12 Penicillins Allergy Rash/Hives Verified 09/30/18 17:12 atorvastatin AdvReac Myalgia Verified 09/30/18 17:12 hydromorphone [From Dilaudid] AdvReac Unknown Verified 09/30/18 17:12 meperidine HCl [From Demerol] AdvReac Hallucinati Verified 09/30/18 17:12 ons Review of Systems ROS Statement: Those systems with pertinent positive or pertinent negative responses have been documented in the HPI. Review of systems. Patient has chronic migrainous type headache which is not new. No visual acuity changes denies any photophobia. Denies any neck or stiff neck. Discomfort to her chest just to the left pectoralis major pectoralis minor area which increased with palpation and movement and deep breathing and twisting. Direct observation shows no evidence of any rash or bruising. She does have an implanted defibrillator which does not cause discomfort. Patient states she feels short of breath today and felt somewhat clammy though she thought it may been related to the hot weather outside. Patient received sublingual nitro en route by EMS which decreased her blood pressure to 85 systolic range she received IV fluids blood pressure 100 116 systolic she reports noted no improvement with the subungual nitro. A second sublingual nitro was given and again no improvement with discomfort. Patient denies any nausea vomiting or diarrhea. No abdominal pain no back pain. She says lately she has had mild increased dizziness which been a chronic problem as well as frequent headaches. Past medical problems significant for asthma, CAD, angina, diabetes mellitus, insulin pump. Macular degeneration, fibromyalgia, GERD, hyperlipidemia and hypertension. She states that a previous MT. Osteoarthritis, pneumonia, stage III renal disease. States 2 weeks ago she saw her kidney doctor and she was told she was dehydrated. She stated that the doctor wanted her to come the hospital for IV fluids she declined but increase her fluid intake at home. She has had a history of syncope in the past. The patient's past problems include peripheral vascular disease, neuropathy. Last heart attack February 2016. Surgeries tonsils, adenoids, ASCVD, bariatric surgery, gallbladder, heart cath with stent, hernia repair joint replacement and Other surgeries as noted on previous charts. Past psychological issues include anxiety depression. Former smoker, family history vascular disorders. ROS Other: All systems not noted in ROS Statement are negative. Past Medical History Past Medical History: Asthma, Coronary Artery Disease (CAD), Chest Pain / Angina, Diabetes Mellitus, Eye Disorder, Fibromyalgia, GERD/Reflux, Hyperlipidemia, Hypertension, Myocardial Infarction (MT), Osteoarthritis (OA), Pneumonia, Renal Disease, Syncope, Vascular Disorder Additional Past Medical History / Comment(s): IDDM type II with insulin pump. numbness and tingling bilateral feet, PAD. PAST FOOT ULCERS Carotid artery disease. anemia. 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 BRUISES EASILY. SHORT OF BREATH,BALANCE ISSUES AND LIGHTHEADED W/ ACTIVITY. Last Myocardial Infarction Date:: 02/12/2016 History of Any Multi-Drug Resistant Organisms: None Reported Past Surgical History: Adenoidectomy, AICD, Bariatric Surgery, Cholecystectomy, Heart Catheterization, Heart Catheterization With Stent, Hernia Repair, Joint Replacement, Tonsillectomy Additional Past Surgical History / Comment(s): 02-11-16 RT anterior tibial artery PTBA with post procedure hematoma, 01/16/16 L fem/pop arthrectomy with PTBA/stent. Peripheral angiogram, LT hand pinky finger amputated. L arm surgery for staph infection. 3 hernia repairs. hiatal hernia repair, lap band placed, removed, THEN gastric sleeve. bilateral cataract removal, XAVIER SHOULDER manipulation, lt elbow drained d/t staph infection 2005 Past Anesthesia/Blood Transfusion Reactions: Postoperative Nausea & Vomiting (PONV) Additional Past Anesthesia/Blood Transfusion Reaction / Comment(s): LAST Blood Transfusion, 02/2016. Date of Last Stent Placement:: 02/2016 Type of Cardiac Device: AICD Device Placement Date:: Past Psychological History: Anxiety, Depression Smoking Status: Former smoker Past Alcohol Use History: None Reported Past Drug Use History: None Reported - Past Family History Father Family Medical History: Diabetes Mellitus, Vascular Disorder Additional Family Medical History / Comment(s): from vascular disorder, leg amputation. Mother Family Medical History: Deep Vein Thrombosis (DVT) Additional Family Medical History / Comment(s): Patient states "mom has had several back surgies, encephalopathy of the brain, and dementia". General Exam - General Exam Comments Initial Comments: General: The patient is awake and alert, here because of one to 2 days of discomfort to the left upper chest left axillary region. Pain increases with palpation lifting turning her arm and deep breathing. Patient states she felt clammy at home. Patient brought emergency room by EMS. They gave her 2 sublingual nitro without any improvement. Patient denies any injury. Patient's vital signs show temp 98.2 pulse 70 respiratory rate 18 pulse ox 96% on room air blood pressure 116/94 Eye: Pupils are equal, round and reactive to light, extra-ocular movements are int act; there is normal conjunctiva bilaterally. No signs of icterus. Evidence of cataract surgery. Ears, nose, mouth and throat: There are moist mucous membranes and no oral lesions. Neck: The neck is supple, there is no tenderness, no anterior cervical lymphadenopathy, no carotid bruit. Cardiovascular: There is a regular rate and rhythm. No murmur, rub or gallop is appreciated. Respiratory: Lungs are clear to auscultation, respirations are non-labored, breath sounds are equal. No wheezes, stridor, rales, or rhonchi. Deep breathing increases discomfort to the left pectoralis muscle area. Gastrointestinal: Soft, non-distended, non-tender abdomen without masses or organomegaly noted. There is no rebound or guarding present. No CVA tenderness. Bowel sounds are unremarkable. Back: There is no tenderness to palpation in the midline. There is no obvious deformity. . Musculoskeletal: Patient has discomfort with movement of her left arm. Specifically towards her left pectoralis major and minor muscles. No rash noted. No bruising noted. The patient did have previous surgery in that area, indwelling AICD. She denies discomfort with palpation of the device. Neurovascular status to the left hand and right hand intact. Neurological: CN II-XII intact, There are no obvious motor or sensory deficits. Coordination appears grossly intact. Speech is normal. Patient states she has peripheral neuropathy secondary to diabetes. Skin: Skin is warm and dry and no rashes or lesions are noted. No shingle-like rash noted. Patient denies having had a single shot. Early shingles was discussed Psychiatric: Cooperative, appropriate mood & affect, normal judgment. Limitations: no limitations Course Vital Signs 09/30/18 09/30/18 09/30/18 16:51 16:57 17:18 Temperature 98.2 F 98.2 F Pulse Rate 70 68 Pulse Rate [ 66 Bilateral Sales Financial Analyst ] Respiratory 18 18 Rate Blood Pressure 116/94 116/59 O2 Sat by Pulse 96 98 Oximetry EKG Findings - EKG Comments: EKG Findings:: KG was done and reviewed at 1655 and compared to one done on 03/18/2018 and they are similar. Today's EKG shows normal sinus rhythm rate 70 age undetermined inferior and septal infarct similar to the previous EKG. [place] interval is 160 QRS [address] QTc [address] Barrientos Medical Decision Making - Medical Decision Making Medical decision making; this is a 63-year-old female with known cardiac issues. Complaining of left-sided chest pain more toward the upper left side of the chest which was reproducible with twisting turning deep breathing and movement. As well as palpation. Patient reports she was clammy at the time states her angina and heart attacks do not present in a normal fashion. The patient's labs show white count 6 hemoglobin 11 hematocrit of 34 with a potassium 4.2. BUN 21 creatinine 1.26 and GFR 45. Patient has chronic kidney injury. Patient's blood sugars to 32. Troponin less than 0.012 and BNP normal at 923. The patient had chest x-ray done and it was reviewed by radiologist his impression is there is no focal airspace opacity, pleural effusion, or pneumothorax seen. Cardiac silhouette size is within normal limits. The osseous structures are intact. Intracardiac defibrillator leads, generator are stable. Impression; no acute cardiopulmonary process. As read by Dr. Mayo Discussion the patient's atypical chest pain. Does have a history of chronic kidney disease. The patient's recurrent histories of angina attacks also discussed. Plus musculoskeletal discomfort associated with placement or position of the AICD which on examination appears to be normal. The patient will be admitted for observation to the service of [facility]. - Lab Data Result diagrams: 09/30/18 17:20 09/30/18 17:11 Lab Results 09/30/18 09/30/18 09/30/18 Range/Units 17:08 17:11 17:20 WBC 6.2 (3.8-10.6) k/uL RBC 3.93 (3.80-5.40) m/uL Hgb 11.6 (11.4-16.0) gm/dL Hct 34.3 (34.0-46.0) % MCV 87.2 (80.0-100.0) fL MCH 29.5 (25.0-35.0) pg MCHC 33.8 (31.0-37.0) g/dL RDW 13.4 (11.5-15.5) % Plt Count 256 (150-450) k/uL Neutrophils % 59 % Lymphocytes % 31 % Monocytes % 6 % Eosinophils % 3 % Basophils % 0 % Neutrophils # 3.7 (1.3-7.7) k/uL Lymphocytes # 1.9 (1.0-4.8) k/uL Monocytes # 0.4 (0-1.0) k/uL Eosinophils # 0.2 (0-0.7) k/uL Basophils # 0.0 (0-0.2) k/uL PT (9.0-12.0) sec INR (<1.2) APTT (22.0-30.0) sec Sodium 137 (137-145) mmol/L Potassium 4.2 (3.5-5.1) mmol/L Chloride 109 H (98-107) mmol/L Carbon Dioxide 24 (22-30) mmol/L Anion Gap 4 mmol/L BUN 21 H (7-17) mg/dL Creatinine 1.26 H (0.52-1.04) mg/dL Est GFR (CKD-EPI)AfAm 52 (>60 ml/min/1.73 sqM) Est GFR (CKD-EPI)NonAf 45 (>60 ml/min/1.73 sqM) Glucose 232 H (74-99) mg/dL POC Glucose (mg/dL) 245 H (75-99) mg/dL POC Glu Outboard Technician ID Watt, Ambar Calcium 8.3 L (8.4-10.2) mg/dL Magnesium 2.1 (1.6-2.3) mg/dL Total Bilirubin 0.6 (0.2-1.3) mg/dL AST 19 (14-36) U/L ALT 9 (9-52) U/L Alkaline Phosphatase 80 (38-126) U/L Creatine Kinase 49 (30-135) U/L Troponin I (0.000-0.034) ng/mL NT-Pro-B Natriuret Pep pg/mL Total Protein 5.5 L (6.3-8.2) g/dL Albumin 2.9 L (3.5-5.0) g/dL 09/30/18 09/30/18 09/30/18 Range/Units 17:20 17:20 17:20 WBC (3.8-10.6) k/uL RBC (3.80-5.40) m/uL Hgb (11.4-16.0) gm/dL Hct (34.0-46.0) % MCV (80.0-100.0) fL MCH (25.0-35.0) pg MCHC (31.0-37.0) g/dL RDW (11.5-15.5) % Plt Count (150-450) k/uL Neutrophils % % Lymphocytes % % Monocytes % % Eosinophils % % Basophils % % Neutrophils # (1.3-7.7) k/uL Lymphocytes # (1.0-4.8) k/uL Monocytes # (0-1.0) k/uL Eosinophils # (0-0.7) k/uL Basophils # (0-0.2) k/uL PT 9.8 (9.0-12.0) sec INR 0.9 (<1.2) APTT 24.3 (22.0-30.0) sec Sodium (137-145) mmol/L Potassium (3.5-5.1) mmol/L Chloride (98-107) mmol/L Carbon Dioxide (22-30) mmol/L Anion Gap mmol/L BUN (7-17) mg/dL Creatinine (0.52-1.04) mg/dL Est GFR (CKD-EPI)AfAm (>60 ml/min/1.73 sqM) Est GFR (CKD-EPI)NonAf (>60 ml/min/1.73 sqM) Glucose (74-99) mg/dL POC Glucose (mg/dL) (75-99) mg/dL POC Glu Outboard Technician ID Calcium (8.4-10.2) mg/dL Magnesium (1.6-2.3) mg/dL Total Bilirubin (0.2-1.3) mg/dL AST (14-36) U/L ALT (9-52) U/L Alkaline Phosphatase (38-126) U/L Creatine Kinase (30-135) U/L Troponin I <0.012 (0.000-0.034) ng/mL NT-Pro-B Natriuret Pep 923 pg/mL Total Protein (6.3-8.2) g/dL Albumin (3.5-5.0) g/dL Disposition Clinical Impression: Atypical chest pain, Dyspnea Disposition: ADMITTED IP TO THIS HOSP Condition: Fair Is patient prescribed a controlled substance at d/c from ED?: No Referrals: Jairo Levi DO [Primary Care Provider] - 1-2 days
[2018-09-30 17:21] LABS: Basophils % (A) 0 %; Eosinophils # (A) 0.2 k/uL (0-0.7); Eosinophils % (A) 3 %; HCT 34.3 % (34.0-46.0); HGB 11.6 gm/dL (11.4-16.0); Lymphocytes # (A) 1.9 k/uL (1.0-4.8); Lymphocytes % (A) 31 %; MCH 29.5 pg (25.0-35.0); MCHC 33.8 g/dL (31.0-37.0); MCV 87.2 fL (80.0-100.0); Mean Platelet Volume 6.8; Monocytes # (A) 0.4 k/uL (0-1.0); Monocytes % (A) 6 %; Neutrophils # (A) 3.7 k/uL (1.3-7.7); Neutrophils % (A) 59 %; Platelet Count 256 k/uL (150-450); RBC 3.93 m/uL (3.80-5.40); RDW 13.4 % (11.5-15.5); WBC 6.2 k/uL (3.8-10.6)
--- NOTE | 2018-09-30 17:29 | XR ---
EXAMINATION TYPE: XR chest 2V DATE OF EXAM: 09/30/2018 COMPARISON: Prior chest x-ray 03/18/2018 HISTORY: Left-sided chest pain TECHNIQUE: Frontal and lateral views of the chest are obtained. FINDINGS: There is no focal air space opacity, pleural effusion, or pneumothorax seen. The cardiac silhouette size is within normal limits. The osseous structures are intact. Intracardiac defibrilla tor leads, generator are stable. IMPRESSION: No acute cardiopulmonary process.
[2018-09-30 17:33] LABS: Albumin 2.9 g/dL (3.5-5.0); Calcium 8.3 mg/dL (8.4-10.2); Magnesium 2.1 mg/dL (1.6-2.3); Potassium 4.2 mmol/L (3.5-5.1); Total Bilirubin 0.6 mg/dL (0.2-1.3); Total Protein 5.5 g/dL (6.3-8.2)
[2018-09-30 18:00] LABS: INR 0.9 (<1.2); Partial Thromboplastin Time 24.3 sec (22.0-30.0); Prothrombin Time 9.8 sec (9.0-12.0)
[2018-09-30] MEDS ORDERED: NALOXONE 0.4 MG/ML 1 ML VIAL IV PRN (18:41)
[2018-09-30] MEDS ORDERED: ALPRAZolam 0.25 MG TAB PO PRN (18:44)
[2018-09-30] MEDS ORDERED: ALBUTEROL NEBULIZED 2.5 MG/3 ML INHALATION PRN (18:44)
[2018-09-30] MEDS ORDERED: SODIUM CHLORIDE 0.9% 1,000 ML IV SCH (18:45)
[2018-09-30] MEDS ORDERED: traMADol 50 MG TAB PO STA (19:43)
[2018-09-30] MEDS ORDERED: CYCLOBENZAPRINE 10 MG TAB PO SCH (21:00)
[2018-09-30] MEDS ORDERED: ROSUVASTATIN CALCIUM 40 MG PO SCH (21:00)
[2018-09-30 21:05] LABS: Glucose,Whole Blood 117 mg/dL (75-99)
[2018-09-30 21:15] VITALS: RESP 20; BMI 32.1
[2018-09-30] MEDS: INSULIN ASPART (NovoLOG) 100 UNIT/ML VIAL SQ SCH (21:26)
[2018-09-30] MEDS: traMADol 50 MG TAB PO SCH (22:00)
[2018-09-30] MEDS: MIDODRINE 5 MG TAB PO SCH (22:00)
[2018-09-30] MEDS: POTASSIUM CHLORIDE ER 10 MEQ TAB.ER.PRT PO SCH (22:01)
[2018-09-30] MEDS: FUROSEMIDE 40 MG TAB PO SCH (22:01)
[2018-10-01] MEDS: ACETAMINOPHEN TAB 325 MG TAB PO PRN ×3 (03:35→15:10)
[2018-10-01 05:57] LABS: Glucose,Whole Blood 78 mg/dL (75-99)
[2018-10-01] MEDS: INSULIN ASPART (NovoLOG) 100 UNIT/ML VIAL SQ SCH ×3 (06:54→17:16)
[2018-10-01] MEDS ORDERED: PANTOPRAZOLE 40 MG TABLET PO SCH (07:30)
[2018-10-01 08:55] VITALS: TEMP 98.2
[2018-10-01] MEDS: POTASSIUM CHLORIDE ER 10 MEQ TAB.ER.PRT PO SCH (08:55)
[2018-10-01] MEDS: FUROSEMIDE 40 MG TAB PO SCH (08:55)
[2018-10-01] MEDS: MIDODRINE 5 MG TAB PO SCH (08:55)
[2018-10-01] MEDS: traMADol 50 MG TAB PO SCH (08:56)
[2018-10-01] MEDS ORDERED: FERROUS SULFATE 325 MG TAB PO SCH (09:00)
[2018-10-01] MEDS ORDERED: CLOPIDOGREL 75 MG TAB PO SCH (09:00)
[2018-10-01] MEDS ORDERED: ASPIRIN 81 MG PO SCH (09:00)
[2018-10-01] MEDS ORDERED: ESCITALOPRAM 20 MG TAB PO SCH (09:00)
[2018-10-01] MEDS ORDERED: METOPROLOL SUCCINATE (ER) 50 MG TAB.ER.24H PO SCH (09:00)
--- NOTE | 2018-10-01 09:42 | P.CRDCN ---
History of Present Illness Consult date: 10/01/18 Chief complaint: Chest pain History of present illness: This is a pleasant 63-year-old female patient with past medical history significant for coronary artery disease, ischemic cardiomyopathy and status post AICD, hypertension, diabetes, and dyslipidemia, presented to the emergency room complaining of chest discomfort. She was in her usual state of health to about 3 days ago when she started experiencing discomfort over the left side of the chest, described it as a sharp kind of discomfort, without any radiation to the arm or neck or shoulders and without any associated symptoms of shortness of breath, sweating, dizziness, heart racing, or syncope. The patient states clearly that the discomfort is worse once she take a deep breath. Also she states clearly that the discomfort is different from what she Before she had her myocardial infarction in the past. The EKG showed sinus rhythm with nonspecific changes. The cardiac enzymes were checked and came in to be unremarkable. There is no d-dimer was checked which we are going to obtain. The last heart catheterization was performed in 2015 and that revealed mild nonobstructive disease involving the right coronary artery with chronic total occlusion of the left circumflex and left anterior descending artery and both hughes by collateral. The chest x-ray today did not show any acute abnormalities. The rest of the blood work came in to be unremarkable. Past Medical History Past Medical History: Asthma, Coronary Artery Disease (CAD), Chest Pain / Angina, Diabetes Mellitus, Eye Disorder, Fibromyalgia, GERD/Reflux, Hyperlipidemia, Hypertension, Myocardial Infarction ([place]), Osteoarthritis (OA), Pneumonia, Renal Disease, Syncope, Vascular Disorder Additional Past Medical History / Comment(s): IDDM type II with insulin pump. numbness and tingling bilateral feet, PAD. PAST FOOT ULCERS Carotid artery dis ease. anemia. 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 BRUISES EASILY. SHORT OF BREATH,BALANCE ISSUES AND LIGHTHEADED W/ ACTIVITY. Last Myocardial Infarction Date:: 02/12/2016 History of Any Multi-Drug Resistant Organisms: None Reported Past Surgical History: Adenoidectomy, AICD, Bariatric Surgery, Cholecystectomy, Heart Catheterization, Heart Catheterization With Stent, Hernia Repair, Joint Replacement, Tonsillectomy Additional Past Surgical History / Comment(s): 02-11-16 RT anterior tibial artery PTBA with post procedure hematoma, 01/16/16 L fem/pop arthrectomy with PTBA/stent. Peripheral angiogram, LT hand pinky finger amputated. L arm surgery for staph infection. 3 hernia repairs. hiatal hernia repair, lap band placed, removed, THEN gastric sleeve. bilateral cataract removal, XAVIER SHOULDER manipulation, lt elbow drained d/t staph infection 2005 Past Anesthesia/Blood Transfusion Reactions: Postoperative Nausea & Vomiting (PONV) Additional Past Anesthesia/Blood Transfusion Reaction / Comment(s): LAST Blood Transfusion, 02/2016. Date of Last Stent Placement:: 02/2016 Type of Cardiac Device: AICD Device Placement Date:: Past Psychological History: Anxiety, Depression Additional Psychological History / Comment(s): She is getting around in a wheelchair now. Smoking Status: Former smoker Past Alcohol Use History: None Reported Additional Past Alcohol Use History / Comment(s): Pt started smoking at the age of 11 and quit smoking many yrs ago (before 1984). Past Drug Use History: None Reported - Past Family History Father Family Medical History: Diabetes Mellitus, Vascular Disorder Additional Family Medical History / Comment(s): from vascular disorder, leg amputation. Mother Family Medical History: Deep Vein Thrombosis (DVT) Additional Family Medical History / Comment(s): Patient states "mom has had several back surgies, encephalopathy of the brain, and dementia". Medications and Allergies Home Medications Medication Instructions Recorded Confirmed Type Omeprazole [PriLOSEC] 40 mg PO AC-BRKFST 08/06/14 09/30/18 History Cyclobenzaprine [Flexeril] 10 mg PO HS 07/03/15 09/30/18 History Nitroglycerin Sl Tabs [Nitrostat] 0.4 mg SUBLINGUAL Q5M PRN #25 tab 02/18/16 09/30/18 Rx Escitalopram [Lexapro] 20 mg PO DAILY 09/23/16 09/30/18 History Rosuvastatin Calcium 40 mg PO HS 10/22/16 09/30/18 History Aspirin 81 mg PO DAILY 10/27/16 09/30/18 Rx Clopidogrel [Plavix] 75 mg PO DAILY tab 10/27/16 09/30/18 Rx INSULIN LISPRO (For Pump) [humaLOG 0.01 units SQ-PUMP CONTINUOUS #0 10/27/16 09/30/18 Rx (For Pump)] Calcitriol 0.5 mcg PO MOTH 03/18/18 09/30/18 History Ergocalciferol (Vitamin D2) 50,000 unit PO Q30D 03/18/18 09/30/18 History [Vitamin D2] Ferrous Sulfate [Feosol] 325 mg PO DAILY 03/18/18 09/30/18 History Furosemide [Lasix] 40 mg PO BID 03/18/18 09/30/18 History Potassium Chloride ER [K-Dur 10] 10 meq PO BID 03/18/18 09/30/18 History traMADol HCL [Ultram] 50 mg PO BID 03/18/18 09/30/18 History ALPRAZolam [Xanax] 0.25 mg PO DAILY PRN 09/30/18 09/30/18 History Albuterol Inhaler [Ventolin Hfa 2 puff INHALATION RT-QID PRN 09/30/18 09/30/18 History Inhaler] Metoprolol Succinate (ER) [Toprol 50 mg PO DAILY 09/30/18 09/30/18 History Xl] Midodrine [ProAmatine] 5 mg PO BID 09/30/18 09/30/18 History Allergies Allergy/AdvReac Type Severity Reaction Status Date / Time adhesive tape Allergy Rash/Hives Verified 09/30/18 17:12 Penicillins Allergy Rash/Hives Verified 09/30/18 17:12 atorvastatin AdvReac Myalgia Verified 09/30/18 17:12 hydromorphone [From Dilaudid] AdvReac Unknown Verified 09/30/18 17:12 meperidine HCl [From Demerol] AdvReac Hallucinati Verified 09/30/18 17:12 ons Physical Exam Vitals: Vital Signs Temp Pulse Pulse Resp BP BP Pulse Ox 10/01/18 08:00 98.2 F 69 20 122/73 97 10/01/18 03:57 97.6 F 58 L 20 145/73 98 10/01/18 03:18 20 10/01/18 00:00 98.2 F 58 L 16 121/59 95 09/30/18 21:08 98 F 57 L 20 128/61 98 09/30/18 20:16 71 18 127/62 98 09/30/18 20:00 98 F 57 L 20 128/61 98 09/30/18 19:36 98 F 71 18 111/59 96 09/30/18 17:18 66 09/30/18 16:57 98.2 F 68 18 116/59 98 09/30/18 16:51 98.2 F 70 18 116/94 96 Intake and Output 09/30/18 10/01/18 10/01/18 22:59 06:59 14:59 Intake Total 320 240 Balance 320 240 Intake: Intake, IV Titration 320 Amount Sodium Chloride 0.9% 1, 320 000 ml @ 80 mls/hr IV . [id number] [facility] Rx#:[id number] Oral 240 Other: Voiding Method Bedside Commode Bedside Commode Diaper Diaper Incontinent Incontinent # Voids 1 Weight 83.915 kg 87.5 kg - Constitutional General appearance: no acute distress - Respiratory Respiratory: bilateral: CTA - Cardiovascular Rhythm: regular Heart sounds: normal: S1, S2 Results 09/30/18 17:20 09/30/18 17:11 Cardiac Enzymes 09/30/18 09/30/18 09/30/18 Range/Units 17:11 17:20 23:46 AST 19 (14-36) U/L Troponin I <0.012 <0.012 (0.000-0.034) ng/mL 10/01/18 Range/Units 05:20 AST (14-36) U/L Troponin I <0.012 (0.000-0.034) ng/mL Coagulation 09/30/18 Range/Units 17:20 PT 9.8 (9.0-12.0) sec APTT 24.3 (22.0-30.0) sec CBC 09/30/18 Range/Units 17:20 WBC 6.2 (3.8-10.6) k/uL RBC 3.93 (3.80-5.40) m/uL Hgb 11.6 (11.4-16.0) gm/dL Hct 34.3 (34.0-46.0) % Plt Count 256 (150-450) k/uL Comprehensive Metabolic Panel 09/30/18 Range/Units 17:11 Sodium 137 (137-145) mmol/L Potassium 4.2 (3.5-5.1) mmol/L Chloride 109 H (98-107) mmol/L Carbon Dioxide 24 (22-30) mmol/L BUN 21 H (7-17) mg/dL Creatinine 1.26 H (0.52-1.04) mg/dL Glucose 232 H (74-99) mg/dL Calcium 8.3 L (8.4-10.2) mg/dL AST 19 (14-36) U/L ALT 9 (9-52) U/L Alkaline Phosphatase 80 (38-126) U/L Total Protein 5.5 L (6.3-8.2) g/dL Albumin 2.9 L (3.5-5.0) g/dL Current Medications Generic Name Dose Route Start Last Admin Trade Name Freq PRN Reason Stop Dose Admin Acetaminophen 650 mg 09/30/18 18:41 10/01/18 08:57 Tylenol Tab PO 650 mg Q6HR PRN Administration Mild Pain or Fever > 100.5 Albuterol Sulfate 2.5 mg 09/30/18 18:44 Ventolin Nebulized INHALATION RT-QID PRN Shortness Of Breath Alprazolam 0.25 mg 09/30/18 18:44 Xanax PO DAILY PRN Anxiety Aspirin 81 mg 10/01/18 09:00 10/01/18 08:56 Aspirin PO 81 mg DAILY [facility] Administration Calcitriol 0.5 mcg 10/02/18 12:00 Rocaltrol PO MOTH [facility] Clopidogrel Bisulfate 75 mg 10/01/18 09:00 10/01/18 08:57 Plavix PO 75 mg DAILY [facility] Administration Cyclobenzaprine HCl 10 mg 09/30/18 21:00 09/30/18 22:01 Flexeril PO 10 mg HS [facility] Administration Ergocalciferol 50,000 unit 10/04/18 12:00 Vitamin D2 PO Q30D [facility] Escitalopram Oxalate 20 mg 10/01/18 09:00 10/01/18 08:57 Lexapro PO 20 mg DAILY [facility] Administration Ferrous Sulfate 325 mg 10/01/18 09:00 10/01/18 08:57 Feosol PO 325 mg DAILY [facility] Administration Furosemide 40 mg 09/30/18 21:00 10/01/18 08:55 Lasix PO 40 mg BID [facility] Administration Insulin Aspart 0 unit 09/30/18 21:00 10/01/18 06:54 Novolog SQ Not Given [facility] Protocol Metoprolol Succinate 50 mg 10/01/18 09:00 10/01/18 08:56 Toprol Xl PO 50 mg DAILY [facility] Administration Midodrine 5 mg 09/30/18 21:00 10/01/18 08:55 Proamatine PO 5 mg BID [facility] Administration Naloxone HCl 0.2 mg 09/30/18 18:41 Narcan IV Q2M PRN Opioid Reversal Non-Formulary Medication 40 mg 09/30/18 21:00 09/30/18 21:27 Rosuvastatin Calcium [Rosuvastatin Calcium] PO Not Given HS [facility] Pantoprazole Sodium 40 mg 10/01/18 07:30 10/01/18 06:57 Protonix PO 40 mg AC-BRKFST [facility] Administration Potassium Chloride 10 meq 09/30/18 21:00 10/01/18 08:55 K-Dur 10 PO 10 meq BID [facility] Administration Tramadol HCl 50 mg 09/30/18 21:00 10/01/18 08:56 Ultram PO 50 mg BID [facility] Administration Intake and Output 09/30/18 10/01/18 10/01/18 22:59 06:59 14:59 Intake Total 320 240 Balance 320 240 Intake: Intake, IV Titration 320 Amount Sodium Chloride 0.9% 1, 320 000 ml @ 80 mls/hr IV . [id number] [facility] Rx#:[id number] Oral 240 Other: Voiding Method Bedside Commode Bedside Commode Diaper Diaper Incontinent Incontinent # Voids 1 Weight 83.915 kg 87.5 kg 09/30/18 17:20 09/30/18 17:11 Assessment and Plan Assessment: Assessment #1 atypical/pleuritic chest discomfort #2 severe CAD as described above #3 severe ischemic cardiomyopathy and status post AICD #4 peripheral arterial disease and status post revascularization #5 multiple comorbid conditions Plan #1 the patient was ruled out for acute coronary event #2 giving the nature of her chest discomfort, PE to be ruled out. We'll obtain d-dimer #3 repeat the echocardiogram. The last echo was in 2016 #4 follow-up with the patient Thank you for allowing us participate in her care
[2018-10-01] MEDS ORDERED: FUROSEMIDE 10 MG/ML 4 ML VIAL IV STA (11:09)
[2018-10-01 11:34] LABS: Calcium 8.6 mg/dL (8.4-10.2); Potassium 4.3 mmol/L (3.5-5.1)
--- NOTE | 2018-10-01 11:49 | XR ---
EXAMINATION TYPE: XR chest 1V DATE OF EXAM: 10/01/2018 COMPARISON: Prior chest x-ray 09/30/2018 HISTORY: Congestive heart failure, left chest pain and shortness of breath TECHNIQUE: Single frontal view of the chest is obtained. FINDINGS: Intracardiac defibrillator generator are stable. There are overlying cardiac leads. There i s no focal air space opacity, pleural effusion, or pneumothorax seen. The cardiac silhouette size is within normal limits. The osseous structures are intact. IMPRESSION: No acute process.
[2018-10-01 11:52] LABS: Glucose,Whole Blood 81 mg/dL (75-99)
--- NOTE | 2018-10-01 15:06 | P.HPIM ---
History of Present Illness 63-year-old pleasant female came in with compensative chest pain which is pruritic in nature increases with deep breathing deep breathing he appears to be muscular skeletal nature. Patient was a valid by cardiology patient does have history of cardiac disease troponins are negative EKG did not show any significant abnormality patient has a noncardiac chest pain because of his the cleared her for discharge. Patient in the past has completely occluded left circumflex and left anterior descending with significant collaterals from the right coronary artery basically with only functional coronary arteries right coronary artery. D-dimer was obtained which is only minimally elevated. Patient can get a VQ scan today we'll obtain a VQ scan as patient can be discharged as a pretest probability for gram PE in her situation in spite of for a pleuritic chest pain is extremely low. Patient the chest pain is musculoskeletal. It is comparing of some dizziness as well as chest pain is not associated with diaphoresis. Patient does have congestive heart failure chronic systolic dysfunction ischemic area myopathy ejection fraction of 25% patient is presently euvolemic patient has an AICD in place. Review of Systems REVIEW OF SYSTEMS: CONSTITUTIONAL: No fever, no malaise, no fatigue. HEENT: No recent visual problems or hearing problems. Denied any sore throat. CARDIOVASCULAR: No orthopnea, PND, no palpitations, no syncope. PULMONARY: No shortness of breath, no cough, no hemoptysis. GASTROINTESTINAL: No diarrhea, no nausea, no vomiting, no abdominal pain. NEUROLOGICAL: No headaches, no weakness, no numbness. HEMATOLOGICAL: Denies any bleeding or petechiae. GENITOURINARY: Denies any burning micturition, frequency, or urgency. MUSCULOSKELETAL/RHEUMATOLOGICAL: Denies any joint pain, swelling, or any muscle pain. ENDOCRINE: Denies any polyuria or polydipsia. The rest of the 14-point review of systems is negative. Past Medical History Past Medical History: Asthma, Coronary Artery Disease (CAD), Chest Pain / Angina, Diabetes Mellitus, Eye Disorder, Fibromyalgia, GERD/Reflux, Hyperlipidemia, Hypertension, Myocardial Infarction ([place]), Osteoarthritis (OA), Pneumonia, Renal Disease, Syncope, Vascular Disorder Additional Past Medical History / Comment(s): IDDM type II with insulin pump. numbness and tingling bilateral feet, PAD. PAST FOOT ULCERS Carotid artery disease. anemia. 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 BRUISES EASILY. SHORT OF BREATH,BALANCE ISSUES AND LIGHTHEADED W/ ACTIVITY. Last Myocardial Infarction Date:: 02/12/2016 History of Any Multi-Drug Resistant Organisms: None Reported Past Surgical History: Adenoidectomy, AICD, Bariatric Surgery, Cholecystectomy, Heart Catheterization, Heart Catheterization With Stent, Hernia Repair, Joint Replacement, Tonsillectomy Additional Past Surgical History / Comment(s): 02-11-16 RT anterior tibial artery PTBA with post procedure hematoma, 01/16/16 L fem/pop arthrectomy with PTBA/stent. Peripheral angiogram, LT hand pinky finger amputated. L arm surgery for staph infection. 3 hernia repairs. hiatal hernia repair, lap band placed, removed, THEN gastric sleeve. bilateral cataract removal, XAVIER SHOULDER manipulation, lt elbow drained d/t staph infection 2005 Past Anesthesia/Blood Transfusion Reactions: Postoperative Nausea & Vomiting (PONV) Additional Past Anesthesia/Blood Transfusion Reaction / Comment(s): LAST Blood Transfusion, 02/2016. Date of Last Stent Placement:: 02/2016 Type of Cardiac Device: AICD Device Placement Date:: Past Psychological History: Anxiety, Depression Additional Psychological History / Comment(s): She is getting around in a wheelchair now. Smoking Status: Former smoker Past Alcohol Use History: None Reported Additional Past Alcohol Use History / Comment(s): Pt started smoking at the age of 11 and quit smoking many yrs ago (before 1984). Past Drug Use History: None Reported - Past Family History Father Family Medical History: Diabetes Mellitus, Vascular Disorder Additional Family Medical History / Comment(s): from vascular disorder, leg amputation. Mother Family Medical History: Deep Vein Thrombosis (DVT) Additional Family Medical History / Comment(s): Patient states "mom has had several back surgies, encephalopathy of the brain, and dementia". Medications and Allergies Home Medications Medication Instructions Recorded Confirmed Type Omeprazole [PriLOSEC] 40 mg PO AC-BRKFST 08/06/14 09/30/18 History Cyclobenzaprine [Flexeril] 10 mg PO HS 07/03/15 09/30/18 History Nitroglycerin Sl Tabs [Nitrostat] 0.4 mg SUBLINGUAL Q5M PRN #25 tab 02/18/16 09/30/18 Rx Escitalopram [Lexapro] 20 mg PO DAILY 09/23/16 09/30/18 History Rosuvastatin Calcium 40 mg PO HS 10/22/16 09/30/18 History Aspirin 81 mg PO DAILY 10/27/16 09/30/18 Rx Clopidogrel [Plavix] 75 mg PO DAILY tab 10/27/16 09/30/18 Rx INSULIN LISPRO (For Pump) [humaLOG 0.01 units SQ-PUMP CONTINUOUS #0 10/27/16 Rx (For Pump)] Calcitriol 0.5 mcg PO MOTH 03/18/18 09/30/18 History Ergocalciferol (Vitamin D2) 50,000 unit PO Q30D 03/18/18 09/30/18 History [Vitamin D2] Ferrous Sulfate [Iron (65 MG 325 mg PO DAILY 03/18/18 09/30/18 History Elemental)] Furosemide [Lasix] 40 mg PO BID 03/18/18 09/30/18 History Potassium Chloride ER [K-Dur 10] 10 meq PO BID 03/18/18 09/30/18 History traMADol HCL [Ultram] 50 mg PO BID 03/18/18 09/30/18 History ALPRAZolam [Xanax] 0.25 mg PO DAILY PRN 09/30/18 09/30/18 History Albuterol Inhaler [Ventolin Hfa 2 puff INHALATION RT-QID PRN 09/30/18 09/30/18 History Inhaler] Metoprolol Succinate (ER) [Toprol 50 mg PO DAILY 09/30/18 09/30/18 History XL] Midodrine [ProAmatine] 5 mg PO BID 09/30/18 09/30/18 History Allergies Allergy/AdvReac Type Severity Reaction Status Date / Time adhesive tape Allergy Rash/Hives Verified 09/30/18 17:12 Penicillins Allergy Rash/Hives Verified 09/30/18 17:12 atorvastatin AdvReac Myalgia Verified 09/30/18 17:12 hydromorphone [From Dilaudid] AdvReac Unknown Verified 09/30/18 17:12 meperidine HCl [From Demerol] AdvReac Hallucinati Verified 09/30/18 17:12 ons Physical Exam Vitals: Vital Signs Temp Pulse Pulse Resp BP BP Pulse Ox 10/01/18 12:00 98.2 F 67 20 143/45 96 10/01/18 11:32 97 10/01/18 08:00 98.2 F 69 20 122/73 97 10/01/18 03:57 97.6 F 58 L 20 145/73 98 10/01/18 03:18 20 10/01/18 00:00 98.2 F 58 L 16 121/59 95 09/30/18 21:08 98 F 57 L 20 128/61 98 09/30/18 20:16 71 18 127/62 98 09/30/18 20:00 98 F 57 L 20 128/61 98 09/30/18 19:36 98 F 71 18 111/59 96 09/30/18 17:18 66 09/30/18 16:57 98.2 F 68 18 116/59 98 09/30/18 16:51 98.2 F 70 18 116/94 96 Intake and Output 10/01/18 10/01/18 10/01/18 06:59 14:59 22:59 Intake Total 320 360 Output Total 400 Balance 320 360 -400 Intake: Intake, IV Titration 320 Amount Sodium Chloride 0.9% 1, 320 000 ml @ 80 mls/hr IV . [id number] [facility] Rx#:[id number] Oral 360 Output: Urine 400 Other: Voiding Method Bedside Commode Bedside Commode Diaper Diaper Incontinent Incontinent # Voids 1 1 Weight 87.5 kg PHYSICAL EXAMINATION: GENERAL: The patient is alert and oriented x3, not in any acute distress. Well developed, well nourished. HEENT: Pupils are round and equally reacting to light. EOMI. No scleral icterus. No conjunctival pallor. Normocephalic, atraumatic. No pharyngeal erythema. No thyromegaly. CARDIOVASCULAR: S1 and S2 present. No murmurs, rubs, or gallops. PULMONARY: Chest is clear to auscultation, no wheezing or crackles. ABDOMEN: Soft, nontender, nondistended, normoactive bowel sounds. No palpable organomegaly. MUSCULOSKELETAL: No joint swelling or deformity. EXTREMITIES: No cyanosis, clubbing, or pedal edema. NEUROLOGICAL: Gross neurological examination did not reveal any focal deficits. SKIN: No rashes. Results CBC & Chem 7: 09/30/18 17:20 10/01/18 09:44 Labs: Abnormal Lab Results - Last 24 Hours (Table) 09/30/18 09/30/18 09/30/18 Range/Units 17:08 17:11 21:04 D-Dimer (<0.60) mg/L FEU Chloride 109 H (98-107) mmol/L BUN 21 H (7-17) mg/dL Creatinine 1.26 H (0.52-1.04) mg/dL Glucose 232 H (74-99) mg/dL POC Glucose (mg/dL) 245 H 117 H (75-99) mg/dL Calcium 8.3 L (8.4-10.2) mg/dL Total Protein 5.5 L (6.3-8.2) g/dL Albumin 2.9 L (3.5-5.0) g/dL 10/01/18 10/01/18 Range/Units 09:44 09:44 D-Dimer 0.62 H (<0.60) mg/L FEU Chloride 109 H (98-107) mmol/L BUN 19 H (7-17) mg/dL Creatinine 1.25 H (0.52-1.04) mg/dL Glucose (74-99) mg/dL POC Glucose (mg/dL) (75-99) mg/dL Calcium (8.4-10.2) mg/dL Total Protein (6.3-8.2) g/dL Albumin (3.5-5.0) g/dL Thrombosis Risk Factor Assmnt - Choose All That Apply Any of the Below Risk Factors Present?: Yes Each Factor Represents 1 point: Obesity (BMI >25), Swollen legs (current) Other Risk Factors: Yes Each Risk Factor Represents 2 Points: Age 61-74 years Other congenital or acquired thrombophilia - If yes, enter type in comment: No Thrombosis Risk Factor Assessment Total Risk Factor Score: 4 Thrombosis Risk Factor Assessment Level: Moderate Risk Assessment and Plan Plan: -Chest pain: Appears to be musculoskeletal ruled out acute coronary syndromes. Patient was cleared by cardiology patient will be discharged today. Will also rule out pulmonary embolism as mentioned above. My suspicion in pretest probability for PE is low. -Congestive heart failure ischemic cardiomyopathy, systolic dysfunction ejection fraction of 25% not in acute exacerbation patient is euvolemic -Chronic kidney disease stage III secondary to diabetic nephropathy -Type 2 diabetes mellitus -Hyperlipidemia -Hypertension -Peripheral vascular disease. Patient will be discharged today as mentioned above
--- NOTE | 2018-10-01 15:07 | P.DS ---
Providers Date of admission: 09/30/18 18:41 Attending physician: Wily Morse Consults: 09/30/18 18:41 Consult Physician Stat Consulting Provider: Toñito Nagel Reason/Comments: Atypical chest pain Do you want consulting provider notified?: Yes Primary care physician: Jairo Levi [facility] Course: As mentioned in HPI Patient Condition at Discharge: Fair Plan - Discharge Summary New Discharge Prescriptions: Continue Omeprazole [PriLOSEC] 40 mg PO AC-BRKFST Cyclobenzaprine [Flexeril] 10 mg PO HS Nitroglycerin Sl Tabs [Nitrostat] 0.4 mg SUBLINGUAL Q5M PRN #25 tab PRN Reason: Chest Pain Escitalopram [Lexapro] 20 mg PO DAILY Rosuvastatin Calcium 40 mg PO HS Clopidogrel [Plavix] 75 mg PO DAILY tab INSULIN LISPRO (For Pump) [humaLOG (For Pump)] 0.01 units SQ-PUMP CONTINUOUS #0 Aspirin 81 mg PO DAILY Furosemide [Lasix] 40 mg PO BID Ferrous Sulfate [Iron (65 MG Elemental)] 325 mg PO DAILY traMADol HCL [Ultram] 50 mg PO BID Ergocalciferol (Vitamin D2) [Vitamin D2] 50,000 unit PO Q30D Calcitriol 0.5 mcg PO MOTH Potassium Chloride ER [K-Dur 10] 10 meq PO BID Midodrine [ProAmatine] 5 mg PO BID Metoprolol Succinate (ER) [Toprol XL] 50 mg PO DAILY ALPRAZolam [Xanax] 0.25 mg PO DAILY PRN PRN Reason: Anxiety Albuterol Inhaler [Ventolin Hfa Inhaler] 2 puff INHALATION RT-QID PRN PRN Reason: Shortness Of Breath Discharge Medication List Omeprazole [PriLOSEC] 40 mg PO AC-BRKFST 08/06/14 [History] Cyclobenzaprine [Flexeril] 10 mg PO HS 07/03/15 [History] Nitroglycerin Sl Tabs [Nitrostat] 0.4 mg SUBLINGUAL Q5M PRN #25 tab 02/18/16 [Rx] Escitalopram [Lexapro] 20 mg PO DAILY 09/23/16 [History] Rosuvastatin Calcium 40 mg PO HS 10/22/16 [History] Aspirin 81 mg PO DAILY 10/27/16 [Rx] Clopidogrel [Plavix] 75 mg PO DAILY tab 10/27/16 [Rx] INSULIN LISPRO (For Pump) [humaLOG (For Pump)] 0.01 units SQ-PUMP CONTINUOUS #0 10/27/16 [Rx] Calcitriol 0.5 mcg PO MOTH 03/18/18 [History] Ergocalciferol (Vitamin D2) [Vitamin D2] 50,000 unit PO Q30D 03/18/18 [History] Ferrous Sulfate [Iron (65 MG Elemental)] 325 mg PO DAILY 03/18/18 [History] Furosemide [Lasix] 40 mg PO BID 03/18/18 [History] Potassium Chloride ER [K-Dur 10] 10 meq PO BID 03/18/18 [History] traMADol HCL [Ultram] 50 mg PO BID 03/18/18 [History] ALPRAZolam [Xanax] 0.25 mg PO DAILY PRN 09/30/18 [History] Albuterol Inhaler [Ventolin Hfa Inhaler] 2 puff INHALATION RT-QID PRN 09/30/18 [History] Metoprolol Succinate (ER) [Toprol XL] 50 mg PO DAILY 09/30/18 [History] Midodrine [ProAmatine] 5 mg PO BID 09/30/18 [History] Follow up Appointment(s)/Referral(s): Jairo Levi DO [Primary Care Provider] - 3 Days Discharge Disposition: HOME SELF-CARE
--- NOTE | 2018-10-01 15:13 | ECHOF ---
Referral Reason:chest pain MEASUREMENTS -------- HEIGHT: 165.1 cm WEIGHT: 87.5 kg BP: RVIDd: 2.7 cm (< 3.3) IVSd: 1.0 cm (0.6 - 1.1) LVIDd: 4.3 cm (3.9 - 5.3) LVPWd: 1.3 cm (0.6 - 1.1) IVSs: 1.5 cm LVIDs: 3.0 cm LVPWs: 1.5 cm LAESV Index (A-L): 15.71 ml/m Ao Diam: 2.4 cm (2.0 - 3.7) AV Cusp: 1.7 cm (1.5 - 2.6) LA Diam: 3.3 cm (2.7 - 3.8) MV EXCURSION: 13.189 mm (> 18.000) MV EF SLOPE: 52 mm/s (70 - 150) EPSS: 0.9 cm MV E Josue: 0.76 m/s MV DecT: 222 ms MV A Josue: 0.87 m/s MV E/A Ratio: 0.87 RAP: 5.00 mmHg RVSP: 34.78 mmHg FINDINGS -------- Sinus rhythm. Pacerwire seen in RV and RA. AICD This was a technically adequate study. The left ventricular size is normal. There is mild concentric left ventricular hypertrophy. Overa ll left ventricular systolic function is mildly impaired with, an EF between 45 - 50 %. Mid anteros eptal LV wall motion is hypokinetic. The right ventricle is normal in size. The left atrial size is normal. The right atrial size is normal. Interatrial and interventricular septum intact. The aortic valve is trileaflet and appears structurally normal. There is trace mitral regurgitation. Mild tricuspid regurgitation present. There is no evidence of pulmonary hypertension. The right v entricular systolic pressure, as measured by Doppler, is 34.78mmHg. Trace/mild (physiologic) pulmonic regurgitation. The aortic root size is normal. Normal inferior vena cava with normal inspiratory collapse consistent with estimated right atrial pre ssure of 5 mmHg. There is no pericardial effusion. CONCLUSIONS -------- 1. Sinus rhythm. 2. Pacerwire seen in RV and RA. 3. AICD 4. This was a technically adequate study. 5. The left ventricular size is normal. 6. There is mild concentric left ventricular hypertrophy. 7. Overall left ventricular systolic function is mildly impaired with, an EF between 45 - 50 %. 8. Mid anteroseptal LV wall motion is hypokinetic. 9. The right ventricle is normal in size. 10. The left atrial size is normal. 11. The right atrial size is normal. 12. Interatrial and interventricular septum intact. 13. The aortic valve is trileaflet and appears structurally normal. 14. There is trace mitral regurgitation. 15. Mild tricuspid regurgitation present. 16. There is no evidence of pulmonary hypertension. 17. The right ventricular systolic pressure, as measured by Doppler, is 34.78mmHg. 18. Trace/mild (physiologic) pulmonic regurgitation. 19. The aortic root size is normal. 20. Normal inferior vena cava with normal inspiratory collapse consistent with estimated right atrial pressure of 5 mmHg. 21. There is no pericardial effusion. GLASS INSTALLER TECHNICIAN: Tiffany Rankin RDCS
[2018-10-01 15:14] VITALS: BP 108/89; PULSE 90
[2018-10-01 16:43] LABS: Glucose,Whole Blood 112 mg/dL (75-99)
--- NOTE | 2018-10-01 18:01 | NM ---
EXAMINATION TYPE: NM pul vent and perfuse DATE OF EXAM: 10/01/2018 COMPARISON: 03/18/2018, chest x-ray 10/01/2018 09/30/2018 HISTORY: Elevated d-dimer TECHNIQUE: Utilizing inhalation of 39.7 mCi Tc 99m DTPA aerosol and intravenous injection of 5.08 mC i of Tc 99m MAA, ventilation and perfusion images are acquired post injection in multiple projections . FINDINGS: Normal radiotracer distribution is noted in the lungs. There is no evidence of mismatched defects. No triple matched defects are evident IMPRESSION: Low probability for pulmonary embolism
[2018-10-02] MEDS ORDERED: CALCITRIOL 0.25 MCG CAP PO SCH (12:00)
[2018-10-04] MEDS ORDERED: ERGOCALCIFEROL 50,000 UNIT CAP PO SCH (12:00)
== END 2018-10-01 19:30 | disposition home or self-care (01) ==
LOC: EC 16:45 → 1SOBS 18:41 → 3SCARD 20:09
PROVIDERS: ADMIT Internal Medicine; ATTEND Internal Medicine
DX: R07.89 Other chest pain (principal); M79.622 Pain in left upper arm; R42 Dizziness and giddiness; R06.02 Shortness of breath; R06.00 Dyspnea, unspecified; R07.81 Pleurodynia; R23.1 Pallor; R79.89 Other specified abnormal findings of blood chemistry; J45.909 Unspecified asthma, uncomplicated; I25.10 Atherosclerotic heart disease of native coronary artery without angina pectoris; G43.909 Migraine, unspecified, not intractable, without status migrainosus; H35.30 Unspecified macular degeneration; M79.7 Fibromyalgia; E78.5 Hyperlipidemia, unspecified; K21.9 Gastro-esophageal reflux disease without esophagitis; I13.0 Hypertensive heart and chronic kidney disease with heart failure and stage 1 through stage 4 chronic kidney disease, or unspecified chronic kidney disease; N18.3 Chronic kidney disease, stage 3 (moderate); I50.22 Chronic systolic (congestive) heart failure; E11.51 Type 2 diabetes mellitus with diabetic peripheral angiopathy without gangrene; E11.22 Type 2 diabetes mellitus with diabetic chronic kidney disease; E11.319 Type 2 diabetes mellitus with unspecified diabetic retinopathy without macular edema; E11.42 Type 2 diabetes mellitus with diabetic polyneuropathy; E11.21 Type 2 diabetes mellitus with diabetic nephropathy; I25.2 Old myocardial infarction; I25.5 Ischemic cardiomyopathy; I25.82 Chronic total occlusion of coronary artery; M19.90 Unspecified osteoarthritis, unspecified site; F41.9 Anxiety disorder, unspecified; F32.9 Major depressive disorder, single episode, unspecified; D64.9 Anemia, unspecified; R32 Unspecified urinary incontinence; E66.9 Obesity, unspecified; Z68.32 Body mass index [BMI] 32.0-32.9, adult; Z96.41 Presence of insulin pump (external) (internal); Z95.5 Presence of coronary angioplasty implant and graft; Z95.810 Presence of automatic (implantable) cardiac defibrillator; Z95.828 Presence of other vascular implants and grafts; Z87.01 Personal history of pneumonia (recurrent); Z87.891 Personal history of nicotine dependence; Z86.14 Personal history of Methicillin resistant Staphylococcus aureus infection; Z86.31 Personal history of diabetic foot ulcer; Z98.84 Bariatric surgery status; Z90.49 Acquired absence of other specified parts of digestive tract; Z89.022 Acquired absence of left finger(s); Z79.899 Other long term (current) drug therapy; Z79.891 Long term (current) use of opiate analgesic; Z79.82 Long term (current) use of aspirin; Z79.02 Long term (current) use of antithrombotics/antiplatelets; Z79.4 Long term (current) use of insulin; Z91.048 Other nonmedicinal substance allergy status; Z88.0 Allergy status to penicillin; Z88.5 Allergy status to narcotic agent; Z88.8 Allergy status to other drugs, medicaments and biological substances; Z82.49 Family history of ischemic heart disease and other diseases of the circulatory system; Z81.8 Family history of other mental and behavioral disorders; Z83.2 Family history of diseases of the blood and blood-forming organs and certain disorders involving the immune mechanism
CPT/HCPCS: 96361 ×2; 96374; 99285; 36415; 93005; 93306; 85379; 83880; 80053; 80048; 82550; 83735; 84484 ×2; 85025; 85610; 85730; 71045; 71046; 78582; G0378 ×2; A9540; A9567; J1940

== ENCOUNTER → 2018-11-17 | Outpatient (CLI) | payer MEDICARE ==
[2018-11-17 15:22] LABS: Basophils % (A) 1 %; Eosinophils # (A) 0.3 k/uL (0-0.7); Eosinophils % (A) 4 %; HCT 42.4 % (34.0-46.0); HGB 14.3 gm/dL (11.4-16.0); Lymphocytes # (A) 2.3 k/uL (1.0-4.8); Lymphocytes % (A) 32 %; MCH 29.6 pg (25.0-35.0); MCHC 33.8 g/dL (31.0-37.0); MCV 87.8 fL (80.0-100.0); Mean Platelet Volume 6.9; Monocytes # (A) 0.4 k/uL (0-1.0); Monocytes % (A) 5 %; Neutrophils # (A) 4.2 k/uL (1.3-7.7); Neutrophils % (A) 57 %; Platelet Count 261 k/uL (150-450); RBC 4.83 m/uL (3.80-5.40); RDW 12.8 % (11.5-15.5); WBC 7.3 k/uL (3.8-10.6)
[2018-11-17 18:51] LABS: Parathyroid Hormone Intact 146.4 pg/mL (14.0-72.0)
[2018-11-17 19:00] LABS: Iron Saturation 20.82 (12.00-45.00)
[2018-11-17 19:09] LABS: Vitamin D 25 Hydroxy 34.2 ng/mL (30.0-100.0)
[2018-11-17 19:37] LABS: African American GFR (CKD) 36.3 (60.0-200.0); Albumin 4.1 g/dL (3.80-4.90); Albumin/Globulin Ratio 1.86 (1.60-3.17); Anion Gap 9.5 mmol/L (4.00-12.00); BUN/Creat Ratio 12.94 Ratio (12.00-20.00); Calcium 9.4 mg/dL (8.7-10.3); Carbon Dioxide 28.5 mmol/L (21.6-31.8); Globulin 2.2 g/dL (1.6-3.3); Magnesium 2.3 mg/dL (1.5-2.4); Phosphorus 3.9 mg/dL (2.4-5.1); Potassium 4.3 mmol/L (3.5-5.5); Total Bilirubin 0.7 mg/dL (0.2-1.2); Total Protein 6.3 g/dL (6.2-8.2); Uric Acid 7.3 mg/dL (2.9-7.7)
== END | disposition home or self-care (01) ==
LOC: LABWHC1 10-17 15:34
PROVIDERS: ATTEND Internal Medicine
DX: E55.9 Vitamin D deficiency, unspecified (principal); N39.0 Urinary tract infection, site not specified; R80.9 Proteinuria, unspecified; N25.81 Secondary hyperparathyroidism of renal origin; M10.9 Gout, unspecified; N18.3 Chronic kidney disease, stage 3 (moderate); D63.1 Anemia in chronic kidney disease
CPT/HCPCS: 36415; 80053; 82306; 82728; 83540; 83550; 83735; 83970; 84100; 84550; 85025

== ENCOUNTER 2018-11-25 18:55 | Emergency (ER) | payer MEDICARE ==
[2018-11-25 19:03] VITALS: RESP 16
--- NOTE | 2018-11-25 19:19 | ED ---
Female Urogenital HPI - General Chief complaint: Urogenital Stated complaint: Blood in urine Time Seen by Provider: 11/25/18 19:03 Source: patient Mode of arrival: ambulatory Limitations: no limitations - History of Present Illness Initial comments: 63-year-old female patient presents to the emergency department today for evaluation of hematuria and dysuria that started approximately 45 minutes ago. Patient states that she has urinated twice since symptom onset and both times she has had blood in the urine. Patient denies any abdominal pain, back pain, flank pain, nausea, vomiting, fever, or chills. Patient denies any history of frequent UTIs. Patient does take Plavix. Patient denies any recent rash, shortness breath, chest pain, diarrhea, constipation, back pain, numbness, tingling, dizziness, weakness, headache, visual changes, or any other complaints. - Related Data Home Medications Medication Instructions Recorded Confirmed Omeprazole [PriLOSEC] 40 mg PO AC-BRKFST 08/06/14 09/30/18 Cyclobenzaprine [Flexeril] 10 mg PO HS 07/03/15 09/30/18 Escitalopram [Lexapro] 20 mg PO DAILY 09/23/16 09/30/18 Rosuvastatin Calcium 40 mg PO HS 10/22/16 09/30/18 Calcitriol 0.5 mcg PO MOTH 03/18/18 09/30/18 Ergocalciferol (Vitamin D2) 50,000 unit PO Q30D 03/18/18 09/30/18 [Vitamin D2] Ferrous Sulfate [Iron (65 MG 325 mg PO DAILY 03/18/18 09/30/18 Elemental)] Furosemide [Lasix] 40 mg PO BID 03/18/18 09/30/18 Potassium Chloride ER [K-Dur 10] 10 meq PO BID 03/18/18 09/30/18 traMADol HCL [Ultram] 50 mg PO BID 03/18/18 09/30/18 ALPRAZolam [Xanax] 0.25 mg PO DAILY PRN 09/30/18 09/30/18 Albuterol Inhaler [Ventolin Hfa 2 puff INHALATION RT-QID PRN 09/30/18 09/30/18 Inhaler] Metoprolol Succinate (ER) [Toprol 50 mg PO DAILY 05/25/19 05/25/19 XL] Midodrine [ProAmatine] 5 mg PO BID 09/30/18 09/30/18 Previous Rx's Medication Instructions Recorded Nitroglycerin Sl Tabs [Nitrostat] 0.4 mg SUBLINGUAL Q5M PRN #25 tab 02/18/16 Aspirin 81 mg PO DAILY 10/27/16 Clopidogrel [Plavix] 75 mg PO DAILY tab 10/27/16 INSULIN LISPRO (For Pump) [humaLOG 0.01 units SQ-PUMP CONTINUOUS #0 10/27/16 (For Pump)] Cephalexin [Keflex] 500 mg PO Q6HR #40 cap 11/25/18 Allergies Allergy/AdvReac Type Severity Reaction Status Date / Time adhesive tape Allergy Rash/Hives Verified 11/25/18 19:04 Penicillins Allergy Rash/Hives Verified 11/25/18 19:04 atorvastatin AdvReac Myalgia Verified 11/25/18 19:04 hydromorphone [From Dilaudid] AdvReac Unknown Verified 11/25/18 19:04 meperidine HCl [From Demerol] AdvReac Hallucinati Verified 11/25/18 19:04 ons Review of Systems ROS Statement: Those systems with pertinent positive or pertinent negative responses have been documented in the HPI. ROS Other: All systems not noted in ROS Statement are negative. Past Medical History Past Medical History: Asthma, Coronary Artery Disease (CAD), Chest Pain / Angina, Diabetes Mellitus, Eye Disorder, Fibromyalgia, GERD/Reflux, Hyperlipidemia, Hypertension, Myocardial Infarction ([place]), Osteoarthritis (OA), Pneumonia, Renal Disease, Syncope, Vascular Disorder Additional Past Medical History / Comment(s): IDDM type II with insulin pump. numbness and tingling bilateral feet, PAD. PAST FOOT ULCERS Carotid artery disease. anemia. 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 BRUISES EASILY. SHORT OF BREATH,BALANCE ISSUES AND LIGHTHEADED W/ ACTIVITY. Last Myocardial Infarction Date:: 02/12/2016 History of Any Multi-Drug Resistant Organisms: None Reported Past Surgical History: Adenoidectomy, AICD, Bariatric Surgery, Cholecystectomy, Heart Catheterization, Heart Catheterization With Stent, Hernia Repair, Joint Replacement, Tonsillectomy Additional Past Surgical History / Comment(s): 02-11-16 RT anterior tibial artery PTBA with post procedure hematoma, 01/16/16 L fem/pop arthrectomy with PTBA/stent. Peripheral angiogram, LT hand pinky finger amputated. L arm surgery for staph infection. 3 hernia repairs. hiatal hernia repair, lap band placed, removed, THEN gastric sleeve. bilateral cataract removal, XAVIER SHOULDER manipulation, lt elbow drained d/t staph infection 2005 Past Anesthesia/Blood Transfusion Reactions: Postoperative Nausea & Vomiting (PONV) Additional Past Anesthesia/Blood Transfusion Reaction / Comment(s): LAST Blood Transfusion, 02/2016. Date of Last Stent Placement:: 02/2016 Type of Cardiac Device: AICD Device Placement Date:: Past Psychological History: Anxiety, Depression Smoking Status: Former smoker Past Alcohol Use History: None Reported Past Drug Use History: None Reported - Past Family History Father Family Medical History: Diabetes Mellitus, Vascular Disorder Additional Family Medical History / Comment(s): from vascular disorder, leg amputation. Mother Family Medical History: Deep Vein Thrombosis (DVT) Additional Family Medical History / Comment(s): Patient states "mom has had several back surgies, encephalopathy of the brain, and dementia". General Exam Limitations: no limitations General appearance: alert, in no apparent distress, other (This is a well- developed, well-nourished adult female patient in no acute distress. Vital signs upon presentation are temperature 98.4F, pulse 66, respirations 16, blood pressure 118/63, pulse ox 98% on room air.) Eye exam: Present: normal appearance, PERRL, EOMI. Absent: scleral icterus, conjunctival injection, periorbital swelling ENT exam: Present: normal exam, normal oropharynx, mucous membranes moist Respiratory exam: Present: normal lung sounds bilaterally. Absent: respiratory distress, wheezes, rales, rhonchi, stridor Cardiovascular Exam: Present: regular rate, normal rhythm, normal heart sounds. Absent: systolic murmur, diastolic murmur, rubs, gallop, clicks GI/Abdominal exam: Present: soft, normal bowel sounds. Absent: distended, tenderness, guarding, rebound, rigid Back exam: Present: normal inspection. Absent: CVA tenderness (R), CVA tenderness (L) Neurological exam: Present: alert, oriented X3, CN II-XII intact Psychiatric exam: Present: normal affect, normal mood Skin exam: Present: warm, dry, intact, normal color. Absent: rash Course Vital Signs 07/20/19 19:00 Temperature 98.4 F Pulse Rate 66 Respiratory 16 Rate Blood Pressure 118/63 O2 Sat by Pulse 98 Oximetry Medical Decision Making - Medical Decision Making 63-year-old female patient presents to the emergency department today complaining of dysuria and hematuria. Physical examination is unremarkable. There is no CVA tenderness. No abdominal tenderness but she has not vomiting. She is afebrile with satisfactory vital signs. Urinalysis was obtained and show ed a dark red color with a bloody appearance. Greater than 182 red blood cells, greater than 182 white blood cells, 13 squamous epithelial cells, hyaline casts are 111. We will treat for urinary tract infection with Keflex with a dose of Rocephin here in the emergency department. She does have an appointment with her marketing and public relations manager Tuesday. She is instructed to follow-up with her primary care physician for recheck in 1-2 days. Return parameters were discussed in detail. She verbalizes understanding and agrees with this plan. - Lab Data Lab Results 11/25/18 Range/Units 19:29 Urine Color Dark Red Urine Appearance Bloody H (Clear) Urine RBC >182 H (0-5) /hpf Urine WBC >182 H (0-5) /hpf Ur Squamous Epith Cells 13 H (0-4) /hpf Hyaline Casts 111 H (0-2) /lpf Disposition Clinical Impression: Urinary tract infection Disposition: HOME SELF-CARE Condition: Good Instructions (If sedation given, give patient instructions): Urinary Tract Infection in Women (ED), Hematuria (ED) Additional Instructions: Complete antibiotic prescription and full. Increase fluids. Follow-up through primary care physician for recheck in 1-2 days. Have repeat urinalysis performed was antibiotics are complete Tw[place] clearance of infection. Return to the emergency department immediately for any new, worsening, or concerning symptoms. Prescriptions: Cephalexin [Keflex] 500 mg PO Q6HR #40 cap Is patient prescribed a controlled substance at d/c from ED?: No Referrals: Jairo Levi DO [Primary Care Provider] - 1-2 days Time of Disposition: 20:32
[2018-11-25] MEDS ORDERED: NALOXONE 0.4 MG/ML 1 ML VIAL IV PRN (19:52)
[2018-11-25] MEDS ORDERED: ACETAMINOPHEN TAB 325 MG TAB PO PRN (19:52)
[2018-11-25] MEDS ORDERED: MORPHINE SULFATE 4 MG/ML SYRINGE IV PRN (19:52)
[2018-11-25] MEDS ORDERED: ONDANSETRON 4 MG/2 ML VIAL IVP PRN (19:52)
[2018-11-25 20:08] LABS: Hyaline Casts,Urine 111 /lpf (0-2); RBC,Urine >182 /hpf (0-5); Squamous Epithelial Cell,Urine 13 /hpf (0-4); WBC,Urine >182 /hpf (0-5)
[2018-11-25 20:10] LABS: Color,Urine Dark Red
[2018-11-25 20:11] LABS: Appearance,Urine Bloody (Clear)
[2018-11-25] MEDS ORDERED: cefTRIAXone IN SWFI 1,000 MG/10 ML SYRINGE IVP STA (20:30)
[2018-11-25 21:11] VITALS: BP 148/78; PULSE 86; TEMP 98.6
== END 2018-11-25 21:10 | disposition home or self-care (01) ==
LOC: EC 18:55
DX: N39.0 Urinary tract infection, site not specified (principal); J45.909 Unspecified asthma, uncomplicated; I25.119 Atherosclerotic heart disease of native coronary artery with unspecified angina pectoris; I10 Essential (primary) hypertension; E78.5 Hyperlipidemia, unspecified; I25.2 Old myocardial infarction; E11.51 Type 2 diabetes mellitus with diabetic peripheral angiopathy without gangrene; E11.319 Type 2 diabetes mellitus with unspecified diabetic retinopathy without macular edema; F41.9 Anxiety disorder, unspecified; F32.9 Major depressive disorder, single episode, unspecified; Z79.899 Other long term (current) drug therapy; Z91.048 Other nonmedicinal substance allergy status; Z88.0 Allergy status to penicillin; Z88.8 Allergy status to other drugs, medicaments and biological substances; Z88.5 Allergy status to narcotic agent; Z87.891 Personal history of nicotine dependence; Z95.810 Presence of automatic (implantable) cardiac defibrillator; Z98.84 Bariatric surgery status; Z95.5 Presence of coronary angioplasty implant and graft
CPT/HCPCS: 81001; 87086; 99283; 96374; J0696; 87077; 87186

== ENCOUNTER 2019-01-15 12:12 | Emergency (ER) | payer MEDICARE ==
[2019-01-15 12:26] VITALS: BP 96/63; PULSE 57; RESP 20; TEMP 97.4
[2019-01-15] MEDS ORDERED: HYDROcodone/APAP 5-325MG 1 EACH TAB PO STA (12:35)
--- NOTE | 2019-01-15 12:37 | ED ---
Back Pain HPI - General Chief Complaint: Back Pain/Injury Stated Complaint: back pain Time Seen by Provider: 01/15/19 12:30 Source: patient, RN notes reviewed Mode of arrival: ambulatory Limitations: no limitations - History of Present Illness Initial Comments: This a 63-year-old female presents emergency Department chief complaint of low back pain. Patient states on Tuesday she went open her window and states that she felt a snap or a pop in her low back. Patient states that she's had pain ever since. Patient states that she took some medications at home which did not help much. Patient states she feels very stiff she does not have any new symptoms that radiate down her leg. She does have some chronic paresthesias. Denies any bowel, bladder incontinence or retention. Denies any saddle anesthesias. Patient states she has no complaints of abdominal pain, fevers or chills. - Related Data Home Medications Medication Instructions Recorded Confirmed Omeprazole [PriLOSEC] 40 mg PO AC-BRKFST 08/06/14 01/15/19 Cyclobenzaprine [Flexeril] 10 mg PO HS 07/03/15 01/15/19 Escitalopram [Lexapro] 20 mg PO DAILY 09/23/16 01/15/19 Rosuvastatin Calcium 40 mg PO HS 10/22/16 01/15/19 Calcitriol 0.5 mcg PO MOTH 03/18/18 01/15/19 Furosemide [Lasix] 40 mg PO QAM 03/18/18 01/15/19 Potassium Chloride ER [K-Dur 10] 10 meq PO BID 03/18/18 01/15/19 traMADol HCL [Ultram] 50 mg PO BID 03/18/18 01/15/19 ALPRAZolam [Xanax] 0.25 mg PO DAILY PRN 09/30/18 01/15/19 Metoprolol Succinate (ER) [Toprol 50 mg PO DAILY 09/30/18 01/15/19 XL] Furosemide [Lasix] 20 mg PO PC-LUNCH 01/15/19 01/15/19 Insulin Aspart (For Pump) [NovoLOG 0.01 unit SQ-PUMP CONTINUOUS 01/15/19 01/15/19 (For Pump)] Stool Softner Plus 50mg 50 mg PO DAILY 01/15/19 01/15/19 Previous Rx's Medication Instructions Recorded Aspirin 81 mg PO DAILY 10/27/16 Clopidogrel [Plavix] 75 mg PO DAILY tab 10/27/16 Hydrocodone/Acetaminophen [Villalba 1 tab PO Q6HR PRN #12 tab 01/15/19 5-325] Allergies Allergy/AdvReac Type Severity Reaction Status Date / Time adhesive tape Allergy Rash/Hives Verified 01/15/19 12:57 Penicillins Allergy Rash/Hives Verified 01/15/19 12:57 atorvastatin AdvReac Myalgia Verified 01/15/19 12:57 hydromorphone [From Dilaudid] AdvReac Unknown Verified 01/15/19 12:57 meperidine HCl [From Demerol] AdvReac Hallucinati Verified 01/15/19 12:57 ons Review of Systems ROS Statement: Those systems with pertinent positive or pertinent negative responses have been documented in the HPI. ROS Other: All systems not noted in ROS Statement are negative. Past Medical History Past Medical History: Asthma, Coronary Artery Disease (CAD), Chest Pain / Angina, Diabetes Mellitus, Eye Disorder, Fibromyalgia, GERD/Reflux, Hyperlipidemia, Hypertension, Myocardial Infarction ([place]), Osteoarthritis (OA), Pneumonia, Renal Disease, Syncope, Vascular Disorder Additional Past Medical History / Comment(s): IDDM type II with insulin pump. numbness and tingling bilateral feet, PAD. PAST FOOT ULCERS Carotid artery disease. anemia. 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 BRUISES EASILY. SHORT OF BREATH,BALANCE ISSUES AND LIGHTHEADED W/ ACTIVITY. Last Myocardial Infarction Date:: 02/12/2016 History of Any Multi-Drug Resistant Organisms: None Reported Past Surgical History: Adenoidectomy, AICD, Bariatric Surgery, Cholecystectomy, Heart Catheterization, Heart Catheterization With Stent, Hernia Repair, Joint Replacement, Tonsillectomy Additional Past Surgical History / Comment(s): 02-11-16 RT anterior tibial artery PTBA with post procedure hematoma, 01/16/16 L fem/pop arthrectomy with PTBA/stent. Peripheral angiogram, LT hand pinky finger amputated. L arm surgery for staph infection. 3 hernia repairs. hiatal hernia repair, lap band placed, removed, THEN gastric sleeve. bilateral cataract removal, XAVIER SHOULDER manipulation, lt elbow drained d/t staph infection 2005 Past Anesthesia/Blood Transfusion Reactions: Postoperative Nausea & Vomiting (PONV) Additional Past Anesthesia/Blood Transfusion Reaction / Comment(s): LAST Blood Transfusion, 02/2016. Date of Last Stent Placement:: 02/2016 Type of Cardiac Device: AICD Device Placement Date:: Past Psychological History: Anxiety, Depression Smoking Status: Former smoker Past Alcohol Use History: None Reported Past Drug Use History: None Reported - Past Family History Father Family Medical History: Diabetes Mellitus, Vascular Disorder Additional Family Medical History / Comment(s): from vascular disorder, leg amputation. Mother Family Medical History: Deep Vein Thrombosis (DVT) Additional Family Medical History / Comment(s): Patient states "mom has had several back surgies, encephalopathy of the brain, and dementia". General Exam Limitations: no limitations General appearance: alert, in no apparent distress Head exam: Present: atraumatic, normocephalic, normal inspection Neck exam: Present: normal inspection, full ROM. Absent: tenderness, meningismus, lymphadenopathy Respiratory exam: Present: normal lung sounds bilaterally. Absent: respiratory distress, wheezes, rales, rhonchi, stridor, chest wall tenderness Cardiovascular Exam: Present: regular rate, normal rhythm, normal heart sounds. Absent: systolic murmur, diastolic murmur, rubs, gallop, clicks GI/Abdominal exam: Present: soft, normal bowel sounds. Absent: distended, tenderness, guarding, rebound, rigid Extremities exam: Present: other (Lower extremities neurovascular intact equal color equal warmth full strength) Back exam: Present: full ROM (With moderate discomfort), tenderness, muscle spasm, paraspinal tenderness. Absent: vertebral tenderness Neurological exam: Present: alert, oriented X3, CN II-XII intact Skin exam: Present: warm, dry, intact, normal color. Absent: rash Course Vital Signs 01/15/19 12:22 Temperature 97.4 F L Pulse Rate 57 L Respiratory 20 Rate Blood Pressure 96/63 O2 Sat by Pulse 99 Oximetry Medical Decision Making - Medical Decision Making 63-year-old female presented from for low back pain. Patient had x-rays which showed mild grade wants follow these is. Patient neurovascular intact no red flag symptoms. Patient will be treated for lumbar strain. Patient did have great pain relief medication emergency department Disposition Clinical Impression: Lumbar strain Disposition: HOME SELF-CARE Condition: Stable Instructions (If sedation given, give patient instructions): Acute Low Back Pain (ED) Additional Instructions: Please return to the Emergency Department if symptoms worsen or any other concerns. Prescriptions: Hydrocodone/Acetaminophen [Villalba 5-325] 1 tab PO Q6HR PRN #12 tab PRN Reason: Pain Is patient prescribed a controlled substance at d/c from ED?: Yes When asked, does pt state using other controlled substances?: Yes If prescribed controlled substance>3 days was MAPS reviewed?: Prescribed <3 Days If opioid is for acute pain is fill amount 7 days or less?: Yes If Rx opioid, was Start Talking consent form obtained?: Yes Referrals: Jairo Levi DO [Primary Care Provider] - 1-2 days Time of Disposition: 13:35
--- NOTE | 2019-01-15 13:21 | XR ---
EXAMINATION TYPE: XR lumbar spine 2 or 3V DATE OF EXAM: 01/15/2019 CLINICAL HISTORY: pain TECHNIQUE: Three views of the lumbar spine are submitted. COMPARISON: None. FINDINGS: There are 5 lumbar type vertebral bodies identified. The lumbar spine shows satisfactory alignment w ithout evidence of acute fracture or dislocation. Vertebral body heights are within normal limits. Moderate facet joint arthropathy mild degenerative disc space narrowing. Grade 1 anterolisthesis L4 and L5 of 5 mm The overlying soft tissue appears unremarkable. IMPRESSION: No acute fracture or dislocation is seen in the lumbar spine. ICD 10 NO FRACTURE, INITIAL EVALUATION
== END 2019-01-15 13:49 | disposition home or self-care (01) ==
LOC: EC 12:12
DX: S39.012A Strain of muscle, fascia and tendon of lower back, initial encounter (principal); I25.10 Atherosclerotic heart disease of native coronary artery without angina pectoris; I13.0 Hypertensive heart and chronic kidney disease with heart failure and stage 1 through stage 4 chronic kidney disease, or unspecified chronic kidney disease; E11.22 Type 2 diabetes mellitus with diabetic chronic kidney disease; N18.3 Chronic kidney disease, stage 3 (moderate); I50.9 Heart failure, unspecified; M79.7 Fibromyalgia; K21.9 Gastro-esophageal reflux disease without esophagitis; E78.5 Hyperlipidemia, unspecified; I25.2 Old myocardial infarction; M19.90 Unspecified osteoarthritis, unspecified site; F41.9 Anxiety disorder, unspecified; F32.9 Major depressive disorder, single episode, unspecified; Z95.810 Presence of automatic (implantable) cardiac defibrillator; Z95.818 Presence of other cardiac implants and grafts; Z95.5 Presence of coronary angioplasty implant and graft; Z96.698 Presence of other orthopedic joint implants; Z87.891 Personal history of nicotine dependence; Z79.891 Long term (current) use of opiate analgesic; Z79.4 Long term (current) use of insulin; Z79.899 Other long term (current) drug therapy; Z91.048 Other nonmedicinal substance allergy status; Z88.0 Allergy status to penicillin; Z88.8 Allergy status to other drugs, medicaments and biological substances; Z88.5 Allergy status to narcotic agent; Y92.009 Unspecified place in unspecified non-institutional (private) residence as the place of occurrence of the external cause
CPT/HCPCS: 72100; 99283

== ENCOUNTER → 2019-04-06 | Outpatient (CLI) | payer MEDICARE ==
[2019-04-06 13:25] LABS: Basophils % (A) 1 %; Eosinophils # (A) 0.3 k/uL (0-0.7); Eosinophils % (A) 4 %; HCT 42.5 % (34.0-46.0); Lymphocytes # (A) 2.1 k/uL (1.0-4.8); Lymphocytes % (A) 27 %; MCH 29.6 pg (25.0-35.0); MCHC 32.9 g/dL (31.0-37.0); MCV 89.8 fL (80.0-100.0); Mean Platelet Volume 6.8; Monocytes # (A) 0.4 k/uL (0-1.0); Monocytes % (A) 5 %; Neutrophils # (A) 4.8 k/uL (1.3-7.7); Neutrophils % (A) 63 %; Platelet Count 285 k/uL (150-450); RBC 4.73 m/uL (3.80-5.40); RDW 12.6 % (11.5-15.5); WBC 7.6 k/uL (3.8-10.6)
[2019-04-06 13:38] LABS: INR 0.9 (<1.2); Partial Thromboplastin Time 24.6 sec (22.0-30.0); Prothrombin Time 9.5 sec (9.0-12.0)
[2019-04-06 13:40] LABS: Calcium 9.1 mg/dL (8.4-10.2); Potassium 3.9 mmol/L (3.5-5.1)
== END | disposition home or self-care (01) ==
LOC: LABPAT 12:54
PROVIDERS: ATTEND Orthopaedic Surgery Orthopaedic Surgery of the Spine
DX: Z01.812 Encounter for preprocedural laboratory examination (principal); Z01.818 Encounter for other preprocedural examination; M48.54XA Collapsed vertebra, not elsewhere classified, thoracic region, initial encounter for fracture; Z79.01 Long term (current) use of anticoagulants
CPT/HCPCS: 36415; 80048; 85025; 85610; 85730

== ENCOUNTER → 2019-04-13 | Outpatient (CLI) | payer MEDICARE ==
--- NOTE | 2019-04-13 15:41 | BD ---
EXAMINATION TYPE: Axial Bone Density DATE OF EXAM: 04/13/2019 COMPARISON: NONE CLINICAL HISTORY: Z 78.0 Height: Weight: FRAX RISK QUESTIONS: Alcohol (3 or more units per day): no Family History (Parent hip fracture): no Glucocorticoids (More than 3mos): no (Ex: prednisone, prednisolone, methylprednisolone, dexamethasone, and hydrocortisone). History of Fracture in Adulthood: yes Secondary Osteoporosis: 1. Type 1 Diabetes: no 2. Hyperthyroidism: no 3. Menopause before 45: yes 4. Malnutrition: no 5. Chronic liver disease: no Rheumatoid Arthritis: no Current Tobacco Use: no RISK FACTORS HISTORY OF: Hip Fracture (Right/Left): left When: 2 years Spine Fracture: t-spine When: 2019 Surgery to Spine/Hip(right/left)/Wrist (right/left): left hip When: 2 years ago Family History of Osteoporosis: no Active: no Diet low in dairy products/other sources of calcium: no Postmenopausal woman: unsure Lost more than 2 inches in height since high school: no MEDICATIONS: insulin Additional History: stage 3 kidney failure EXAM MEASUREMENTS: Bone mineral densitometry was performed using the [employer]. Bone mineral density as measured about the Lumbar spine is: ----- L1-L4(G/cm2): 1.205 T Score Values are as follows: ----- L2: 0.0 ----- L3: 0.3 ----- L4: -0.1 ----- L1-L4: 0.2 Bone mineral density : baseline Bone mineral density about the R hip (g/cm2): 0.583 T Score values are as follows: -----R Neck: -3.3 -----R Total: -3.1 Bone mineral density : baseline IMPRESSION: Osteoporosis (T Score less than -2.5). There is increased fracture risk and therapy is usually indicated based on age. Re-Screen 1-2 years. NOTE: T-SCORE=SD OF THE YOUNG ADULT MEAN.
== END | disposition home or self-care (01) ==
LOC: RADBDWWP 15:06
PROVIDERS: ATTEND Family Medicine
DX: M81.0 Age-related osteoporosis without current pathological fracture (principal)
CPT/HCPCS: 77080

== ENCOUNTER 2019-04-18 06:31 | Day surgery (SDC) | payer MEDICARE ==
[2019-04-13 16:19] VITALS: BMI 30.4
[~2019-04-18 06:31] MED LIST: BACITRACIN 50,000 UNIT, POLYMYXIN B 500,000 UNIT in SODIUM CHLORIDE 0.9% IRRIGATIO 1,00... IRRIGATION ONE; DEXAMETHASONE SOD PHOSPHATE 10 MG/ML 1 ML VIAL IV ONE; LACTATED RINGERS 1,000 ML IV SCH; LIDOCAINE 1% 20 ML VIAL (10MG/ML) FOR IV START INTRADERMA PRN; MIDAZOLAM 2 MG/2 ML VIAL IV PRN; ONDANSETRON 4 MG/2 ML VIAL IVP ONE; SCOPOLAMINE 1.5MG/72HR PATCH TRANSDERM ONE
[2019-04-18 07:14] LABS: Glucose,Whole Blood 104 mg/dL (75-99)
[2019-04-18] MEDS ORDERED: fentaNYL (PF) 50 MCG/ML 2 ML AMP ONE (07:27)
[2019-04-18] MEDS ORDERED: ePHEDrine SULFATE/0.9% NACL/PF 50 MG/5 ML SYRINGE IV ONE (07:27)
[2019-04-18] MEDS ORDERED: PROPOFOL 10 MG/ML 20 ML VIAL IV ONE (07:27)
[2019-04-18] MEDS ORDERED: SUCCINYLCHOLINE CHLORIDE 100 MG/5 ML SYR IV ONE (07:27)
[2019-04-18] MEDS ORDERED: MIDAZOLAM 2 MG/2 ML VIAL ONE (07:27)
[2019-04-18] MEDS ORDERED: LIDOCAINE 1% INJ 10MG/ML (20 ML MDV) ONE (07:27)
[2019-04-18] MEDS ORDERED: IOPAMIDOL M200 10 ML VIAL MISCELLANE ONE ×2 (07:32)
[2019-04-18] MEDS ORDERED: LIDOCAINE 0.5%-EPI 1:200,000 50 ML VIAL SQ ONE ×2 (07:32)
--- NOTE | 2019-04-18 08:38 | FL ---
Fluoroscopy History: KYPHOPLASTY KYPHOPLASTY. DR MCQUEEN. 2 IMAGES SCANNED. 63 SEC FL TIME WITH 2 C-ARMS.
[2019-04-18] MEDS ORDERED: HYDROmorphone 0.5 MG/0.5 ML SYRINGE IVP PRN (08:39)
[2019-04-18] MEDS ORDERED: BENZOCAINE/MENTHOL LOZENG 1 EACH LOZENGE MUCOUS MEM PRN (08:39)
[2019-04-18] MEDS ORDERED: MAGNESIUM HYDROXIDE 2,400 MG/10 ML CUP PO PRN (08:39)
[2019-04-18] MEDS ORDERED: ONDANSETRON 4 MG/2 ML VIAL IVP PRN (08:40)
[2019-04-18] MEDS ORDERED: IBUPROFEN 600 MG TAB PO PRN (08:40)
[2019-04-18] MEDS ORDERED: KETOROLAC 30 MG/ML 1 ML VIAL IVP PRN (08:40)
[2019-04-18] MEDS ORDERED: Insulin Aspart (For Pump) 100 UNIT/ML VIAL SQ-PUMP SCH (08:45)
--- NOTE | 2019-04-18 08:49 | P.OP ---
Date of Procedure: 04/18/19 Preoperative Diagnosis: T12 vertebral compression fracture, traumatic due to a fall Thoracic back pain Osteopenia Postoperative Diagnosis: Same Anesthesia: GETA Pathology: other (T12 vertebral body biopsy sent to pathology) Condition: stable Disposition: PACU Description of Procedure: BRIEF OPERATIVE NOTE Preoperative Diagnosis: T12 vertebral compression fracture, traumatic due to a fall Thoracic back pain Osteopenia Postoperative Diagnosis: Same Procedure: Kyphoplasty of T12 Vertebral body biopsy of T12 Use of biplanar fluoroscopic guidance T12 Surgeon: Dr. Mathis Political Researcher: Reji Woodruff is present throughout the entire the case persistence during positioning, dissection, exposure, visualization, and all crucial elements of the case as well as closure. Anesthesia: General anesthesia per Dr. Gonzalez Estimated blood loss: Less than 10 mL Specimen: Vertebral body biopsy of T12 sent to pathology in formalin Complications: None apparent Components implanted: Bone cement approximately 6 mL Disposition: To recovery room in good stable condition. OPERATIVE INDICATIONS The patient has been having issues in their back ever since sustaining an injury. She's been having pain in her mid back over the past several weeks and has been having some worsening of her pain and some debility trying to mobilize and ambulate due to the pain at her back. She is found have a compression fracture at T12 which correlated well with her pain. The patient has been through conservative treatment. They attempted conservative care with bracing however they're not having any benefit despite brace use. They continue to have significant pain and debility due to their fracture. We discussed various treatment options including surgery, and the patient wishes to proceed with surgery We discussed the risk, patient's alternatives and benefits of surgery including but not limited to, risk of bleeding risk of infection, risk of need for further surgery, risk of decreased, loss of motion, loss of function, cement extravasation, nerve damage, paralysis, heart attack, blindness and . OPERATIVE SUMMARY After discussing all the risks, patient alternatives and benefits at length, the patient elected to proceed with surgical intervention, signed informed consent, and presented for their procedure. The patient was seen and examined in the preoperative holding area and the surgical site was marked. The patient was given antibiotics and brought to the operating room. The patient was sedated and intubated by anesthesia in standard fashion. The patient was positioned on to the operating room table in a prone position on the appropriate well-padded and well molded bilateral chest rolls. We were careful to pad any bony prominences and pressure points. We were careful to maintain the patient's cervical spine and good neutral alignment and position throughout. We used 2 C-arm machines to establish biplanar fluoroscopic guidance in AP and lateral positions. We were able to localize the fractures appropriately at T12. The patient was prepped and draped in a normal standard fashion. An ap propriate timeout and keystone protocol performed. We were able to proceed with the surgery. The local wound area was infiltrated with local anesthetic at T12 on the right. An incision was made over the lateral aspect of the pedicle over the appropriate levels with a small 2 mm stab incision at T12 on the right. Intraoperative fluoroscopy was taken which showed a marker at the appropriate level. With the appropriate level positively confirmed, I was able to position a sharp trocar over the lateral aspect of the pedicle. As able to advance the trocar into the pedicle and into the posterior aspect of vertebral body being careful to avoid penetration cephalad caudad or medially. The trocar was placed appropriately into the posterior aspect of vertebral body at the appropriate levels of T12. This was confirmed with C-arm guidance. With the trocar intact I was then able to take a bone biopsy with a biopsy punch or a bony drill. The biopsy specimen was passed off to be sent to [facility] in formalin. I was then able to place the kyphoplasty balloon within the vertebral body. The position was checked on C-arm. I was able to inflate the balloon under low pressure and visualization with C-arm. The balloon was well enclosed within the vertebral body. The cement was prepared. With the cement at appropriate working condition the balloons were deflated and removed. I was able to place bony cement with trocar with the cement delivery device under low pressure. It had good fill within the vertebral body. We're A[address] Elin 6 mL of bone cement. There is no evidence of any extravasation of the cement posteriorly toward the canal. The cement was well contained at the appropriate levels. The cement was allowed to cure appropriately. The trochars removed and final images were taken on C-arm. This showed the cement at the appropriate levels. We were able to proceed with closure. The wound was cleaned and dried and dressed with the appropriate dressing. The drapes were broken down. The patient was gently rolled back onto their hospital bed being careful to maintain their cervical spine and good neutral alignment and position. They were woken up by anesthesia, extubated, and brought to the recovery room in good stable condition. The patient will be admitted to the hospital for observation and for appropriate postoperative care, medical management and monitoring. We will continue to follow them closely about the postoperative course.
[2019-04-18] MEDS ORDERED: diphenhydrAMINE 50 MG/ML 1 ML VIAL IVP ONE (09:21)
[2019-04-18] MEDS ORDERED: HYDROmorphone 0.5 MG/0.5 ML SYRINGE IVP ONE ×3 (09:32→12:16)
[2019-04-18 10:48] LABS: Glucose,Whole Blood 118 mg/dL (75-99)
[2019-04-18] MEDS ORDERED: LACTATED RINGERS 1,000 ML IV ONE ×2 (12:40→12:42)
[2019-04-18] MEDS: ROSUVASTATIN CALCIUM 40 MG PO SCH (13:33)
[2019-04-18] MEDS: FUROSEMIDE 40 MG TAB PO SCH (13:33)
[2019-04-18] MEDS: ESCITALOPRAM 20 MG TAB PO SCH (13:33)
[2019-04-18] MEDS: SODIUM CHLORIDE 0.9% 1,000 ML IV SCH (13:33)
[2019-04-18] MEDS ORDERED: INSULIN PUMP BASAL RATES 1 EACH MISC MISCELLANE PRN (13:38)
[2019-04-18] MEDS ORDERED: INSULIN ASPART (NovoLOG) 100 UNIT/ML VIAL SQ PRN (13:38)
[2019-04-18] MEDS ORDERED: INSULIN PUMP ACTIVE INSULIN 1 EACH MISC MISCELLANE PRN (13:38)
[2019-04-18] MEDS ORDERED: INSPUCOR MISCELLANE PRN (13:38)
[2019-04-18] MEDS ORDERED: INSULIN PUMP TARGET GLUCOSE 1 EACH MISC MISCELLANE PRN (13:38)
[2019-04-18] MEDS: SULFAMETHOX-TMP 800-160MG 1 EACH TAB PO SCH (14:02)
[2019-04-18] MEDS: HYDROcodone/APAP 5-325MG 1 EACH TAB PO PRN (16:43)
[2019-04-18 16:47] LABS: Glucose,Whole Blood 153 mg/dL (75-99)
[2019-04-18] MEDS: INSULIN PUMP MEAL BOLUS 1 UNIT MISC MISCELLANE SCH ×2 (17:24→20:40)
[2019-04-18 20:17] LABS: Glucose,Whole Blood 251 mg/dL (75-99)
[2019-04-18] MEDS ORDERED: traMADol 50 MG TAB PO SCH (21:00)
[2019-04-18] MEDS ORDERED: CYCLOBENZAPRINE 10 MG TAB PO SCH (21:00)
[2019-04-18] MEDS ORDERED: FUROSEMIDE 20 MG TAB PO SCH (21:00)
[2019-04-18 23:52] LABS: Glucose,Whole Blood 54 mg/dL (75-99)
[2019-04-19 00:09] LABS: Glucose,Whole Blood 90 mg/dL (75-99)
[2019-04-19] MEDS: SODIUM CHLORIDE 0.9% 1,000 ML IV SCH ×2 (00:49→11:51)
[2019-04-19] MEDS: HYDROcodone/APAP 5-325MG 1 EACH TAB PO PRN ×2 (03:42→08:40)
[2019-04-19 07:10] LABS: Glucose,Whole Blood 91 mg/dL (75-99)
[2019-04-19] MEDS: INSULIN PUMP MEAL BOLUS 1 UNIT MISC MISCELLANE SCH ×2 (07:12→12:15)
[2019-04-19 07:24] VITALS: BP 110/64; PULSE 66; RESP 15; TEMP 98.4
[2019-04-19] MEDS ORDERED: PANTOPRAZOLE 40 MG TABLET PO SCH (07:30)
[2019-04-19] MEDS: SULFAMETHOX-TMP 800-160MG 1 EACH TAB PO SCH (08:40)
[2019-04-19] MEDS: ESCITALOPRAM 20 MG TAB PO SCH (08:41)
[2019-04-19] MEDS: FUROSEMIDE 40 MG TAB PO SCH (08:41)
[2019-04-19] MEDS: ROSUVASTATIN CALCIUM 40 MG PO SCH (08:42)
[2019-04-19] MEDS ORDERED: POTASSIUM CHLORIDE ER 10 MEQ TAB.ER.PRT PO SCH (09:00)
[2019-04-19] MEDS ORDERED: ASPIRIN 81 MG PO SCH (09:00)
[2019-04-19] MEDS ORDERED: METOPROLOL SUCCINATE (ER) 50 MG TAB.ER.24H PO SCH (09:00)
[2019-04-19] MEDS ORDERED: CALCITRIOL 0.25 MCG CAP PO SCH (09:00)
[2019-04-19] MEDS ORDERED: DOCUSATE 100 MG CAP PO SCH (09:00)
[2019-04-19] MEDS ORDERED: CLOPIDOGREL 75 MG TAB PO SCH (09:00)
[2019-04-19 11:23] LABS: Glucose,Whole Blood 76 mg/dL (75-99)
--- NOTE | 2019-04-19 11:23 | P.DS ---
Providers Attending physician: Vera Mathis Primary care physician: [facility] Course: The patient presented on the day of admission as per their operative note. She had a T12 compression fracture which was giving her progressive pain despite conservative treatment and presented on the day of her admission for her vertebral kyphoplasty. She feels that her pain is improved around her mid back. She is not having problems in her lower extremity. She does have chronic knee degeneration. Physical Exam The incision site is clean dry and intact. There is no erythema no drainage. There is no purulence no evidence of infection. The dressing clean dry and intact with no drainage. Abdomen soft and nontender. Chest has good excursion with deep inspiration and expiration. The patient has active and passive range of motion intact at the upper and lower extremities. There is no acute change in neurologic status. She has sustained dorsal flexion plantar flexion and EHL intact. Hospital Course Postoperative day #1 status post minimally invasive T12 kyphoplasty with biopsy. Patient is making improvement thus far. Biopsy results are still pending but the patient is having good improvement with her pain. The patient has been making good progress postoperatively. They have completed the prophylactic antibiotics without any signs or symptoms of infection. The patient has been able to advance their diet, and is tolerating diet adequately. The pain was initially controlled with IV medications and is now controlled appropriately with oral medications. The patient has been able to increase their mobilization. The patient has progressed appropriately. I think they are in good stable condition for discharge today. They will be sent home with appropriate prescriptions. I answered their questions to the best of my ability in a language that they can understand and they are agreeable with the plan. They will follow up as directed in approximately 2 weeks or sooner if she should have any problems. Patient Condition at Discharge: Good Plan - Discharge Summary Discharge Rx Participant: No New Discharge Prescriptions: New HYDROcodone/APAP 5-325MG [[place] 5] 1 each PO Q6HR PRN #12 tab PRN Reason: Pain No Action Omeprazole [PriLOSEC] 40 mg PO AC-BRKFST Cyclobenzaprine [Flexeril] 10 mg PO HS Escitalopram [Lexapro] 20 mg PO DAILY Rosuvastatin Calcium 40 mg PO DAILY Clopidogrel [Plavix] 75 mg PO DAILY tab Aspirin 81 mg PO DAILY Furosemide [Lasix] 40 mg PO QAM traMADol HCL [Ultram] 50 mg PO HS Calcitriol 0.5 mcg PO TUTH Potassium Chloride ER [K-Dur 10] 10 meq PO Q2D Metoprolol Succinate (ER) [Toprol XL] 50 mg PO DAILY ALPRAZolam [Xanax] 0.25 mg PO DAILY PRN PRN Reason: Anxiety Furosemide [Lasix] 20 mg PO HS Insulin Aspart (For Pump) [NovoLOG (For Pump)] 0.01 unit SQ-PUMP CONTINUOUS Docusate [Colace] 50 mg PO DAILY Ergocalciferol [Vitamin D2] 100,000 unit PO Q30D Sulfamethox-Tmp 800-160Mg [Bactrim DS 800-160 mg] 1 tab PO DAILY Discharge Medication List Omeprazole [PriLOSEC] 40 mg PO AC-BRKFST 08/06/14 [History] Cyclobenzaprine [Flexeril] 10 mg PO HS 07/03/15 [History] Escitalopram [Lexapro] 20 mg PO DAILY 09/23/16 [History] Rosuvastatin Calcium 40 mg PO DAILY 10/22/16 [History] Aspirin 81 mg PO DAILY 10/27/16 [Rx] Clopidogrel [Plavix] 75 mg PO DAILY tab 10/27/16 [Rx] Calcitriol 0.5 mcg PO TUTH 03/18/18 [History] Furosemide [Lasix] 40 mg PO QAM 03/18/18 [History] Potassium Chloride ER [K-Dur 10] 10 meq PO Q2D 03/18/18 [History] traMADol HCL [Ultram] 50 mg PO HS 03/18/18 [History] ALPRAZolam [Xanax] 0.25 mg PO DAILY PRN 09/30/18 [History] Metoprolol Succinate (ER) [Toprol XL] 50 mg PO DAILY 09/30/18 [History] Docusate [Colace] 50 mg PO DAILY 01/15/19 [History] Furosemide [Lasix] 20 mg PO HS 01/15/19 [History] Insulin Aspart (For Pump) [NovoLOG (For Pump)] 0.01 unit SQ-PUMP CONTINUOUS 01/15/19 [History] Ergocalciferol [Vitamin D2] 100,000 unit PO Q30D 04/13/19 [History] HYDROcodone/APAP 5-325MG [[place] 5] 1 each PO Q6HR PRN #12 tab 04/18/19 [Rx] Sulfamethox-Tmp 800-160Mg [Bactrim DS 800-160 mg] 1 tab PO DAILY 04/18/19 [History] Follow up Appointment(s)/Referral(s): Vera Mathis DO [Doctor of Osteopathic Medicine] - 05/01/19 9:30 am Jairo Levi DO [Primary Care Provider] - 04/30/19 10:10 am Activity/Diet/Wound Care/Special Instructions: Keep site clean. May shower with waterproof Tegaderm intact. Do not soak in a tub. After 72 hours postoperatively, patient May remove dressing and then may shower with area uncovered. Leave Steri-Strips intact and allow them to fray off on their own. May ambulate as tolerated. Avoid heavy or rigorous activity. No repetitive bending twisting or lifting. No overhead work. Discharge Disposition: HOME SELF-CARE
[2019-04-26] MEDS ORDERED: ERGOCALCIFEROL 50,000 UNIT CAP PO SCH (09:00)
== END 2019-04-19 13:23 | disposition home or self-care (01) ==
LOC: OR 06:31 → 4SSUR 08:36 → OR 04-19 13:23
PROVIDERS: ATTEND Orthopaedic Surgery Orthopaedic Surgery of the Spine
DX: S22.080A Wedge compression fracture of T11-T12 vertebra, initial encounter for closed fracture (principal); M85.80 Other specified disorders of bone density and structure, unspecified site; I25.10 Atherosclerotic heart disease of native coronary artery without angina pectoris; I10 Essential (primary) hypertension; E78.5 Hyperlipidemia, unspecified; I73.9 Peripheral vascular disease, unspecified; E10.9 Type 1 diabetes mellitus without complications; F32.9 Major depressive disorder, single episode, unspecified; F41.9 Anxiety disorder, unspecified; K21.9 Gastro-esophageal reflux disease without esophagitis; Z95.5 Presence of coronary angioplasty implant and graft; Z87.440 Personal history of urinary (tract) infections; Z79.02 Long term (current) use of antithrombotics/antiplatelets; Z79.4 Long term (current) use of insulin; Z79.82 Long term (current) use of aspirin; Z79.899 Other long term (current) drug therapy; Z95.810 Presence of automatic (implantable) cardiac defibrillator; Z96.642 Presence of left artificial hip joint; Z90.49 Acquired absence of other specified parts of digestive tract; Z91.048 Other nonmedicinal substance allergy status; Z88.0 Allergy status to penicillin; Z88.5 Allergy status to narcotic agent; Z88.8 Allergy status to other drugs, medicaments and biological substances; Z98.890 Other specified postprocedural states; Z79.891 Long term (current) use of opiate analgesic; Z83.3 Family history of diabetes mellitus; Z82.49 Family history of ischemic heart disease and other diseases of the circulatory system; Z87.891 Personal history of nicotine dependence; W19.XXXA Unspecified fall, initial encounter
CPT/HCPCS: 97161; 88307; 88311; 22513; C1713; J2250; J1200; J0690 ×2; J2405; J2001; J3010; J0330; J2704; J1170; Q9966

== ENCOUNTER → 2019-05-07 | Outpatient (CLI) | payer MEDICARE ==
[2019-05-07 12:28] LABS: Basophils % (A) 1 %; Eosinophils # (A) 0.3 k/uL (0-0.7); Eosinophils % (A) 4 %; HCT 43.6 % (34.0-46.0); HGB 14.3 gm/dL (11.4-16.0); Lymphocytes # (A) 1.9 k/uL (1.0-4.8); Lymphocytes % (A) 30 %; MCH 29.1 pg (25.0-35.0); MCHC 32.8 g/dL (31.0-37.0); MCV 88.6 fL (80.0-100.0); Mean Platelet Volume 7.4; Monocytes # (A) 0.3 k/uL (0-1.0); Monocytes % (A) 5 %; Neutrophils # (A) 3.7 k/uL (1.3-7.7); Neutrophils % (A) 58 %; Platelet Count 302 k/uL (150-450); RBC 4.92 m/uL (3.80-5.40); RDW 12.7 % (11.5-15.5); WBC 6.3 k/uL (3.8-10.6)
[2019-05-07 13:16] LABS: Appearance,Urine Cloudy (Clear); Bacteria,Urine Many /hpf; Bilirubin,Urine Negative (Negative); Blood,Urine Negative (Negative); Color,Urine Yellow; Glucose,Urine (UA) Negative (Negative); Hyaline Casts,Urine 10 /lpf (0-2); Ketones,Urine Negative (Negative); Leukocyte Esterase,Urine Large (Negative); Mucus,Urine Rare /hpf; Nitrite,Urine Negative (Negative); PH, Urine 5.5 (5.0-8.0); Protein,Urine Negative (Negative); RBC,Urine 3 /hpf (0-5); Specific Gravity,Urine 1.013 (1.001-1.035); Squamous Epithelial Cell,Urine 25 /hpf (0-4); Urobilinogen,Urine <2.0 mg/dL (<2.0); WBC,Urine 15 /hpf (0-5)
[2019-05-07 17:00] LABS: Hemoglobin A1C 7.7 % (4.0-6.0)
[2019-05-07 17:17] LABS: Ferritin 27.4 ng/mL (10.0-291.0)
[2019-05-07 17:58] LABS: % Iron Saturation 25.17 (12.00-45.00); ALT <8 U/L (8-44); AST 19 U/L (13-35); African American GFR (CKD) 45.6 (60.0-200.0); Albumin/Globulin Ratio 1.77 (1.60-3.17); Alkaline Phosphatase 86 U/L (41-126); BUN/Creat Ratio 13.57 Ratio (12.00-20.00); Carbon Dioxide 27.9 mmol/L (21.6-31.8); Chloride 104 mmol/L (96-109); Chol/HDL Ratio 3.22; Cholesterol 161 mg/dL (0-200); Globulin 2.2 g/dL (1.6-3.3); Glucose 115 mg/dL (70-110); Iron 75 ug/dL (50-170); LDL Cholesterol,Calculated 84.2 mg/dL (0.0-131.0); Magnesium 2.1 mg/dL (1.5-2.4); Non-African American GFR(CKD) 39.3 (60.0-200.0); Phosphorus 4.1 mg/dL (2.4-5.1); Potassium 3.8 mmol/L (3.5-5.5); Sodium 140 mmol/L (135-145); Total Bilirubin 0.8 mg/dL (0.3-1.2); Total Iron Binding Capacity 298 ug/dL (228-460); Total Protein 6.1 g/dL (6.2-8.2); Uric Acid 8.3 mg/dL (2.9-7.7)
== END | disposition home or self-care (01) ==
LOC: LABWHC1 10:45
PROVIDERS: ATTEND Family Medicine
DX: E11.22 Type 2 diabetes mellitus with diabetic chronic kidney disease (principal); N18.3 Chronic kidney disease, stage 3 (moderate); D63.1 Anemia in chronic kidney disease; N39.0 Urinary tract infection, site not specified; R80.9 Proteinuria, unspecified; N25.81 Secondary hyperparathyroidism of renal origin; E55.9 Vitamin D deficiency, unspecified; M10.9 Gout, unspecified
CPT/HCPCS: 36415; 80053; 80061; 81001; 82043; 82306; 82570; 82728; 83036; 83540; 83550; 83735; 83970; 84100; 84550; 85025

== ENCOUNTER → 2019-06-18 | Outpatient (CLI) | payer MEDICARE ==
--- NOTE | 2019-06-18 13:06 | US ---
EXAMINATION TYPE: US kidneys/renal and bladder DATE OF EXAM: 06/18/2019 COMPARISON: 09/24/2016 CLINICAL HISTORY: N18.3 Chronic kidney disease, stage III. EXAM MEASUREMENTS: Right Kidney: 9.8 x 4.2 x 4.8 cm Left Kidney: 9.5 x 4.2 x 4.9 cm Post Void Residual Volume: 0 mL Patient of large body habitus. Right Kidney: No hydronephrosis or masses seen Left Kidney: No hydronephrosis or masses seen Bladder: wnl Bilateral Jets seen: left jet seen, right not seen in 3 minutes Normal Post Void Residual: none seen There is no evidence for hydronephrosis at this point in time. No nephrolithiasis is seen. No moustapha s are identified. The urinary bladder is anechoic. Bilateral ureteral jets are seen. IMPRESSION: Exam is slightly limited secondary to patient body habitus. No gross evidence of hydronep hrosis nor nephrolithiasis bilaterally.
== END | disposition home or self-care (01) ==
LOC: RADUSWWP 09:06
PROVIDERS: ATTEND Internal Medicine Nephrology
DX: N18.3 Chronic kidney disease, stage 3 (moderate) (principal)
CPT/HCPCS: 76770

== ENCOUNTER → 2019-06-18 | Outpatient (CLI) | payer MEDICARE ==
[2019-06-18 11:44] LABS: Potassium 3.5 mmol/L (3.5-5.1)
[2019-06-18 11:49] LABS: Basophils # (A) 0.1 k/uL (0-0.2); Basophils % (A) 1 %; Eosinophils # (A) 0.2 k/uL (0-0.7); Eosinophils % (A) 2 %; HCT 46.3 % (34.0-46.0); Lymphocytes # (A) 2.1 k/uL (1.0-4.8); Lymphocytes % (A) 22 %; MCH 28.6 pg (25.0-35.0); MCHC 32.4 g/dL (31.0-37.0); MCV 88.1 fL (80.0-100.0); Mean Platelet Volume 7.5; Monocytes # (A) 0.5 k/uL (0-1.0); Monocytes % (A) 5 %; Neutrophils # (A) 6.6 k/uL (1.3-7.7); Neutrophils % (A) 69 %; Platelet Count 288 k/uL (150-450); RBC 5.25 m/uL (3.80-5.40); RDW 13.3 % (11.5-15.5); WBC 9.6 k/uL (3.8-10.6)
== END | disposition home or self-care (01) ==
LOC: LABPAT 10:27
PROVIDERS: ATTEND Anesthesiology
DX: Z01.812 Encounter for preprocedural laboratory examination (principal)
CPT/HCPCS: 36415; 80051; 82565; 84520; 85025

== ENCOUNTER 2019-06-19 07:19 | Day surgery (SDC) | payer MEDICARE ==
[2019-06-15 14:37] VITALS: BMI 30.6
[~2019-06-19 07:19] MED LIST changes: -BACITRACIN 50,000 UNIT, POLYMYXIN B 500,000 UNIT in SODIUM CHLORIDE 0.9% IRRIGATIO 1,00... IRRIGATION ONE; -DEXAMETHASONE SOD PHOSPHATE 10 MG/ML 1 ML VIAL IV ONE; -MIDAZOLAM 2 MG/2 ML VIAL IV PRN; -ONDANSETRON 4 MG/2 ML VIAL IVP ONE; -SCOPOLAMINE 1.5MG/72HR PATCH TRANSDERM ONE
[2019-06-19 07:34] VITALS: TEMP 97.3
[2019-06-19] MEDS ORDERED: LACTATED RINGERS 1,000 ML IV ONE ×2 (07:37)
[2019-06-19 07:40] LABS: Glucose,Whole Blood 91 mg/dL (75-99)
[2019-06-19] MEDS ORDERED: LIDOCAINE 1% INJ 10MG/ML (20 ML MDV) ONE (07:45)
[2019-06-19] MEDS ORDERED: PROPOFOL 10 MG/ML 20 ML VIAL IV ONE (07:45)
--- NOTE | 2019-06-19 07:56 | P.GSHP ---
History of Present Illness H&P Date: 06/19/19 Chief Complaint: GERD This a 64-year-old female with history of GERD. Patient presents today for EGD. Past Medical History Past Medical History: Asthma, Coronary Artery Disease (CAD), Chest Pain / Angina, Diabetes Mellitus, Eye Disorder, Fibromyalgia, GERD/Reflux, Hyperlipidemia, Hypertension, Myocardial Infarction (UT), Osteoarthritis (OA), Pneumonia, Renal Disease, Syncope, Vascular Disorder Additional Past Medical History / Comment(s): insulin pump. numbness and tingling bilateral feet, PAD. anemia. 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 BRUISES EASILY. SHORT OF BREATH,BALANCE ISSUES AND LIGHTHEADED W/ ACTIVITY. migraines,hx hiatal hernia, constipation Last Myocardial Infarction Date:: 02/12/2016 History of Any Multi-Drug Resistant Organisms: None Reported Past Surgical History: Adenoidectomy, AICD, Bariatric Surgery, Cholecystectomy, Heart Catheterization, Heart Catheterization With Stent, Hernia Repair, Joint Replacement, Tonsillectomy Additional Past Surgical History / Comment(s): RT anterior tibial artery PTBA with post procedure hematoma, L fem/pop arthrectomy with PTBA/stent. angiogram, LT hand little finger amputated. L arm surgery for staph infection. 3 hernia repairs. hiatal hernia repair, lap band placed, removed, THEN gastric sleeve. bilateral cataract removal, XAVIER SHOULDER manipulation, lt elbow drained d/t staph infection 2005, on e cardiac stent, left knee replacement Past Anesthesia/Blood Transfusion Reactions: Postoperative Nausea & Vomiting (PONV) Additional Past Anesthesia/Blood Transfusion Reaction / Comment(s): LAST Blood Transfusion, 02/2016. Date of Last Stent Placement:: 02/2016 Type of Cardiac Device: AICD Device Placement Date:: Smoking Status: Former smoker - Past Family History Father Family Medical History: Vascular Disorder Additional Family Medical History / Comment(s): . Mother Family Medical History: Deep Vein Thrombosis (DVT) Additional Family Medical History / Comment(s): . Medications and Allergies Home Medications Medication Instructions Recorded Confirmed Type Omeprazole [PriLOSEC] 40 mg PO AC-BRKFST 08/06/14 06/15/19 History Cyclobenzaprine [Flexeril] 10 mg PO HS 07/03/15 06/15/19 History Escitalopram [Lexapro] 20 mg PO DAILY 09/23/16 06/15/19 History Rosuvastatin Calcium 40 mg PO DAILY 10/22/16 06/15/19 History Aspirin 81 mg PO DAILY 10/27/16 06/15/19 Rx Clopidogrel [Plavix] 75 mg PO DAILY tab 10/27/16 06/15/19 Rx Calcitriol 0.5 mcg PO MOWEFR 03/18/18 06/15/19 History Furosemide [Lasix] 40 mg PO QAM 03/18/18 06/15/19 History Potassium Chloride ER [K-Dur 10] 10 meq PO Q48H 03/18/18 06/15/19 History traMADol HCL [Ultram] 50 mg PO HS 03/18/18 06/15/19 History ALPRAZolam [Xanax] 0.25 mg PO HS PRN 09/30/18 06/15/19 History Metoprolol Succinate (ER) [Toprol 50 mg PO DAILY 09/30/18 06/15/19 History XL] Docusate [Colace] 100 mg PO DAILY 01/15/19 06/15/19 History Furosemide [Lasix] 20 mg PO HS 01/15/19 06/15/19 History Insulin Aspart (For Pump) [NovoLOG 0 unit SQ-PUMP CONTINUOUS 01/15/19 06/15/19 History (For Pump)] Ergocalciferol [Vitamin D2] 50,000 unit PO QMONTH 04/13/19 06/15/19 History HYDROcodone/APAP 5-325MG [[place] 5] 1 each PO Q6HR PRN #12 tab 04/18/19 06/15/19 Rx Ezetimibe [Zetia] 10 mg PO DAILY 06/15/19 06/15/19 History Allergies Allergy/AdvReac Type Severity Reaction Status Date / Time adhesive tape Allergy Rash/Hives Verified 06/15/19 14:25 Penicillins Allergy Rash/Hives Verified 06/15/19 14:25 atorvastatin AdvReac Myalgia Verified 06/15/19 14:25 meperidine HCl [From Demerol] AdvReac Hallucinati Verified 06/15/19 14:25 ons Surgical - Exam Vital Signs Temp Pulse Resp BP Pulse Ox 97.3 F L 78 20 178/79 98 06/19/19 07:33 06/19/19 07:33 06/19/19 07:33 06/19/19 07:33 06/19/19 07:33 - General well developed, well nourished, no distress - Eyes PERRL - ENT normal pinna - Neck no masses - Respiratory normal expansion - Cardiovascular Rhythm: regular - Abdomen Abdomen: soft, non tender Assessment and Plan Assessment: GERD. We'll perform EGD.
--- NOTE | 2019-06-19 08:07 | P.OP ---
Date of Procedure: 06/19/19 Preoperative Diagnosis: GERD Postoperative Diagnosis: Esophagitis Procedure(s) Performed: EGD Anesthesia: MAC Surgeon: Ronaldo Flores Pathology: other (Esophagus) Condition: stable Disposition: PACU Description of Procedure: The patient's placed on the endoscopy table in the lateral position. She receiv ed IV sedation. The gastroscope placed oropharynx and passed in the esophagus and into the stomach. Scope was then placed through the pylorus. The first and second portion of the duodenum appeared normal. Scope was then brought back the antrum and this appeared normal. Scope was then brought back to the stomach. Patient appearance of a mildly dilated gastric sleeve. The scope was then broug ht back the GE junction was at 40 cm. The distal esophagus appeared mildly inflamed. A biopsies performed. The proximal esophagus appeared normal. Scope was withdrawn for patient.
[2019-06-19 08:47] VITALS: BP 150/81; PULSE 63; RESP 16
== END 2019-06-19 08:52 | disposition home or self-care (01) ==
LOC: ORWHC2ENDO 07:19
PROVIDERS: ATTEND Surgery
DX: K21.0 Gastro-esophageal reflux disease with esophagitis (principal); K95.89 Other complications of other bariatric procedure; J45.909 Unspecified asthma, uncomplicated; I25.10 Atherosclerotic heart disease of native coronary artery without angina pectoris; E11.319 Type 2 diabetes mellitus with unspecified diabetic retinopathy without macular edema; H35.30 Unspecified macular degeneration; M79.7 Fibromyalgia; E78.5 Hyperlipidemia, unspecified; I25.2 Old myocardial infarction; M19.90 Unspecified osteoarthritis, unspecified site; I12.9 Hypertensive chronic kidney disease with stage 1 through stage 4 chronic kidney disease, or unspecified chronic kidney disease; E11.22 Type 2 diabetes mellitus with diabetic chronic kidney disease; N18.3 Chronic kidney disease, stage 3 (moderate); I99.9 Unspecified disorder of circulatory system; E11.51 Type 2 diabetes mellitus with diabetic peripheral angiopathy without gangrene; R26.9 Unspecified abnormalities of gait and mobility; K08.89 Other specified disorders of teeth and supporting structures; F41.9 Anxiety disorder, unspecified; F32.9 Major depressive disorder, single episode, unspecified; Z87.01 Personal history of pneumonia (recurrent); Z96.41 Presence of insulin pump (external) (internal); Z86.2 Personal history of diseases of the blood and blood-forming organs and certain disorders involving the immune mechanism; Z87.19 Personal history of other diseases of the digestive system; Z90.89 Acquired absence of other organs; Z95.810 Presence of automatic (implantable) cardiac defibrillator; Z98.84 Bariatric surgery status; Z90.49 Acquired absence of other specified parts of digestive tract; Z95.5 Presence of coronary angioplasty implant and graft; Z98.890 Other specified postprocedural states; Z96.652 Presence of left artificial knee joint; Z95.820 Peripheral vascular angioplasty status with implants and grafts; Z89.022 Acquired absence of left finger(s); Z86.19 Personal history of other infectious and parasitic diseases; Z98.41 Cataract extraction status, right eye; Z98.42 Cataract extraction status, left eye; Z91.89 Other specified personal risk factors, not elsewhere classified; Z87.891 Personal history of nicotine dependence; Z79.899 Other long term (current) drug therapy; Z79.82 Long term (current) use of aspirin; Z79.02 Long term (current) use of antithrombotics/antiplatelets; Z79.891 Long term (current) use of opiate analgesic; Z79.4 Long term (current) use of insulin; Z91.09 Other allergy status, other than to drugs and biological substances; Z88.0 Allergy status to penicillin; Z88.8 Allergy status to other drugs, medicaments and biological substances; Z88.5 Allergy status to narcotic agent; Z96.649 Presence of unspecified artificial hip joint; Z82.49 Family history of ischemic heart disease and other diseases of the circulatory system
CPT/HCPCS: 88305; 43239; J2001; J2704

== ENCOUNTER 2019-10-09 09:56 | Emergency (ER) | payer MEDICARE ==
[2019-10-09 10:07] VITALS: BP 130/54; PULSE 60; RESP 18; TEMP 98
[2019-10-09] MEDS ORDERED: SODIUM CHLORIDE 0.9% 500 ML 500 ML IV ONE (10:35)
--- NOTE | 2019-10-09 10:39 | ED ---
Fall HPI - General Chief Complaint: Fall Stated Complaint: Fall Time Seen by Provider: 10/09/19 09:58 Source: EMS Mode of arrival: EMS - History of Present Illness Initial Comments: Patient is 64-year-old female presenting to emergency Department with a chief complaint of fall. Patient reports attempting to get out of bed and into her wheelchair. States one of the brakes was not locked and the wheelchair slipped out. States she fell on the right side of her body denies any head injury. Denies any loss of consciousness. She reports pain at the right hip. States mostly the pain is on the anterior and lateral aspect of the right hip with radiation distally. Patient reports limited range of motion and pain with right hip flexion. Denies any numbness or tingling. Denies any headaches, one-sided weakness or paresthesias, visual changes. - Related Data Home Medications Medication Instructions Recorded Confirmed Omeprazole [PriLOSEC] 40 mg PO AC-BRKFST 08/06/14 10/09/19 Cyclobenzaprine [Flexeril] 10 mg PO HS 07/03/15 10/09/19 Escitalopram [Lexapro] 20 mg PO DAILY 09/23/16 10/09/19 Rosuvastatin Calcium 40 mg PO DAILY 10/22/16 10/09/19 Calcitriol 0.5 mcg PO MOWEFR 03/18/18 10/09/19 Furosemide [Lasix] 40 mg PO QAM 03/18/18 10/09/19 Potassium Chloride ER [K-Dur 10] 10 meq PO Q48H 03/18/18 10/09/19 traMADol HCL [Ultram] 50 mg PO HS 03/18/18 10/09/19 ALPRAZolam [Xanax] 0.25 mg PO TID PRN 09/30/18 10/09/19 Metoprolol Succinate (ER) [Toprol 50 mg PO DAILY 09/30/18 10/09/19 XL] Furosemide [Lasix] 20 mg PO HS 01/15/19 10/09/19 Insulin Aspart (For Pump) [NovoLOG 0.01 unit SQ-PUMP CONTINUOUS 01/15/19 0 10/09/19 (For Pump)] Ergocalciferol [Vitamin D2] 50,000 unit PO Q28D 04/13/19 10/09/19 Ezetimibe [Zetia] 10 mg PO DAILY 06/15/19 10/09/19 Previous Rx's Medication Instructions Recorded Aspirin 81 mg PO DAILY 10/27/16 Allergies Allergy/AdvReac Type Severity Reaction Status Date / Time adhesive tape Allergy Rash/Hives Verified 10/09/19 11:55 Penicillins Allergy Rash/Hives Verified 10/09/19 11:55 atorvastatin AdvReac Myalgia Verified 10/09/19 11:55 meperidine HCl [From Demerol] AdvReac Hallucinati Verified 10/09/19 11:55 ons Review of Systems ROS Statement: Those systems with pertinent positive or pertinent negative responses have been documented in the HPI. ROS Other: All systems not noted in ROS Statement are negative. Past Medical History Past Medical History: Asthma, Coronary Artery Disease (CAD), Chest Pain / Angina, Diabetes Mellitus, Eye Disorder, Fibromyalgia, GERD/Reflux, Hyperl ipidemia, Hypertension, Myocardial Infarction ([place]), Osteoarthritis (OA), Pneumonia, Renal Disease, Syncope, Vascular Disorder Additional Past Medical History / Comment(s): insulin pump. numbness and tingling bilateral feet, PAD. anemia. 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 BRUISES EASILY. SHORT OF BREATH,BALANCE ISSUES AND LIGHTHEADED W/ ACTIVITY. migraines,hx hiatal hernia, constipation Last Myocardial Infarction Date:: 02/12/2016 History of Any Multi-Drug Resistant Organisms: None Reported Past Surgical History: Adenoidectomy, AICD, Bariatric Surgery, Cholecystectomy, Heart Catheterization, Heart Catheterization With Stent, Hernia Repair, Joint Replacement, Tonsillectomy Additional Past Surgical History / Comment(s): RT anterior tibial artery PTBA with post procedure hematoma, L fem/pop arthrectomy with PTBA/stent. angiogram, LT hand little finger amputated. L arm surgery for staph infection. 3 hernia repairs. hiatal hernia repair, lap band placed, removed, THEN gastric sleeve. bilateral cataract removal, XAVIER SHOULDER manipulation, lt elbow drained d/t staph infection 2005, on e cardiac stent, left knee replacement Past Anesthesia/Blood Transfusion Reactions: Postoperative Nausea & Vomiting (PONV) Additional Past Anesthesia/Blood Transfusion Reaction / Comment(s): LAST Blood Transfusion, 02/2016. Date of Last Stent Placement:: 02/2016 Type of Cardiac Device: AICD Device Placement Date:: Past Psychological History: Anxiety, Depression Smoking Status: Never smoker Past Alcohol Use History: None Reported Past Drug Use History: None Reported - Past Family History Father Additional Family Medical History / Comment(s): . Mother Family Medical History: Deep Vein Thrombosis (DVT) Additional Family Medical History / Comment(s): . General Exam Limitations: no limitations General appearance: alert, in no apparent distress, obese Head exam: Present: atraumatic, normocephalic, normal inspection. Absent: other (Negative Dominguez sign, hemotympanum or raccoon eyes.) Eye exam: Present: normal appearance, PERRL, EOMI Pupils: Present: normal accommodation ENT exam: Present: normal exam, normal oropharynx, mucous membranes moist Neck exam: Present: normal inspection, full ROM Respiratory exam: Present: normal lung sounds bilaterally Cardiovascular Exam: Present: regular rate, normal rhythm, normal heart sounds GI/Abdominal exam: Present: soft. Absent: distended, tenderness, guarding Extremities exam: Present: normal inspection, tenderness (Tenderness along the lateral anterior aspect of her right hip.), normal capillary refill, other (+2 dorsalis pedis and posterior tibialis bilaterally.). Absent: full ROM (Limited range of motion with right hip flexion), pedal edema, joint swelling, calf tenderness Back exam: Present: normal inspection, full ROM Neurological exam: Present: alert, oriented X3 Psychiatric exam: Present: normal affect, normal mood Skin exam: Present: warm, dry, intact, normal color, other (Ecchymotic lesions secondary to blood thinners) Course Vital Signs 10/09/19 10/09/19 10/09/19 10:03 10:04 10:30 Temperature 98.0 F Pulse Rate 60 Respiratory 18 Rate Blood Pressure 130/54 130/54 O2 Sat by Pulse 98 99 100 Oximetry 10/09/19 10/09/19 10/09/19 11:00 11:30 12:00 Temperature Pulse Rate 60 60 63 Respiratory Rate Blood Pressure 95/78 128/50 O2 Sat by Pulse 99 99 Oximetry 10/09/19 10/09/19 12:06 12:08 Temperature 98.0 F 98.0 F Pulse Rate 60 60 Respiratory 18 18 Rate Blood Pressure 130/54 130/54 O2 Sat by Pulse 98 98 Oximetry Medical Decision Making - Medical Decision Making Patient is 64-year-old female presenting to emergency Department with chief complaint of fall. Patient was attempting to transfer from the bed to her wheelchair which she typically uses to ambulate, she missed the chair and fell. Denies any head trauma. States most of the pain is located to the right hip with some radiation moving distally. On exam no signs of a ecchymosis noted on the right lower extremity. Does report limited range of motion due to pain. States she did have a previous hip fracture and this does not feel like it. On exam patient is neurovascularly intact in the bilateral lower extremities. X- ray of the right hip shows no signs of acute fractures dislocations. Patient is not on any blood thinners at this time. I double checked with the pharmacy picking technician who confirmed. I discussed CT imaging with the patient, she declined. I offered her hospital stay for observation, she declined. Return parameters were thoroughly discussed the patient is understanding and agreeable. She was advised to follow primary care. Case discussed with physician. - Lab Data Result diagrams: 10/09/19 10:47 10/09/19 10:47 Lab Results 10/09/19 10/09/19 10/09/19 Range/Units 10:47 10:47 10:47 WBC 6.8 (3.8-10.6) k/uL RBC 4.43 (3.80-5.40) m/uL Hgb 13.0 (11.4-16.0) gm/dL Hct 38.6 (34.0-46.0) % MCV 87.2 (80.0-100.0) fL MCH 29.4 (25.0-35.0) pg MCHC 33.7 (31.0-37.0) g/dL RDW 13.7 (11.5-15.5) % Plt Count 246 (150-450) k/uL Neutrophils % 50 % Lymphocytes % 39 % Monocytes % 5 % Eosinophils % 4 % Basophils % 1 % Neutrophils # 3.4 (1.3-7.7) k/uL Lymphocytes # 2.6 (1.0-4.8) k/uL Monocytes # 0.4 (0-1.0) k/uL Eosinophils # 0.3 (0-0.7) k/uL Basophils # 0.0 (0-0.2) k/uL PT 9.6 (9.0-12.0) sec INR 0.9 (<1.2) APTT 24.0 (22.0-30.0) sec Sodium 136 L (137-145) mmol/L Potassium 3.8 (3.5-5.1) mmol/L Chloride 103 (98-107) mmol/L Carbon Dioxide 24 (22-30) mmol/L Anion Gap 9 mmol/L BUN 25 H (7-17) mg/dL Creatinine 1.53 H (0.52-1.04) mg/dL Est GFR (CKD-EPI)AfAm 41 (>60 ml/min/1.73 sqM) Est GFR (CKD-EPI)NonAf 36 (>60 ml/min/1.73 sqM) Glucose 81 (74-99) mg/dL Calcium 8.9 (8.4-10.2) mg/dL Total Bilirubin 0.5 (0.2-1.3) mg/dL AST 32 (14-36) U/L ALT <6 (4-34) U/L Alkaline Phosphatase 70 (38-126) U/L Total Protein 6.4 (6.3-8.2) g/dL Albumin 3.4 L (3.5-5.0) g/dL Disposition Clinical Impression: Fall, Acute right hip pain Disposition: HOME SELF-CARE Condition: Stable Instructions (If sedation given, give patient instructions): Fall Prevention (ED) Additional Instructions: Follow-up with her primary care. Return to emergency department if symptoms worsen. Apply ice compress to minimize symptoms. Is patient prescribed a controlled substance at d/c from ED?: No Referrals: Jairo Levi DO [Primary Care Provider] - 1-2 days Time of Disposition: 11:41
[2019-10-09 11:17] LABS: Basophils % (A) 1 %; Eosinophils # (A) 0.3 k/uL (0-0.7); Eosinophils % (A) 4 %; HCT 38.6 % (34.0-46.0); Lymphocytes # (A) 2.6 k/uL (1.0-4.8); Lymphocytes % (A) 39 %; MCH 29.4 pg (25.0-35.0); MCHC 33.7 g/dL (31.0-37.0); MCV 87.2 fL (80.0-100.0); Mean Platelet Volume 7.7; Monocytes # (A) 0.4 k/uL (0-1.0); Monocytes % (A) 5 %; Neutrophils # (A) 3.4 k/uL (1.3-7.7); Neutrophils % (A) 50 %; Platelet Count 246 k/uL (150-450); RBC 4.43 m/uL (3.80-5.40); RDW 13.7 % (11.5-15.5); WBC 6.8 k/uL (3.8-10.6)
--- NOTE | 2019-10-09 11:23 | XR ---
EXAMINATION TYPE: XR femur RT, XR Hip Complete RT DATE OF EXAM: 10/09/2019 CLINICAL HISTORY: Right hip and femur pain after fall TECHNIQUE: Two views of the right hip and femur are obtained. COMPARISON: None FINDINGS: There is diffuse osseous demineralization. Mild to moderate arthropathy of the right hip de monstrated as cephalad joint space narrowing and acetabular sclerosis. There is no acute fracture or dislocation seen in the right femur. Knee joint and suboptimally visualized likely secondary to over lying external artifacts. Advanced atherosclerosis of the femoral artery and its branches. The overl barbra soft tissue appears unremarkable. IMPRESSION: Diffuse osseous demineralization without evidence of acute fracture or dislocation of the right hip or femur.
[2019-10-09 11:25] LABS: ALT <6 U/L (4-34); AST 32 U/L (14-36); African American GFR (CKD) 41 (>60 ml/min/1.73 sqM); Albumin 3.4 g/dL (3.5-5.0); Alkaline Phosphatase 70 U/L (38-126); Anion Gap 9 mmol/L; Blood Urea Nitrogen 25 mg/dL (7-17); Calcium 8.9 mg/dL (8.4-10.2); Carbon Dioxide 24 mmol/L (22-30); Chloride 103 mmol/L (98-107); Glucose 81 mg/dL (74-99); Non-African American GFR(CKD) 36 (>60 ml/min/1.73 sqM); Potassium 3.8 mmol/L (3.5-5.1); Sodium 136 mmol/L (137-145); Total Bilirubin 0.5 mg/dL (0.2-1.3); Total Protein 6.4 g/dL (6.3-8.2)
[2019-10-09 11:42] LABS: INR 0.9 (<1.2); Prothrombin Time 9.6 sec (9.0-12.0)
== END 2019-10-09 12:05 | disposition home or self-care (01) ==
LOC: EC 09:56
DX: M25.551 Pain in right hip (principal); R58 Hemorrhage, not elsewhere classified; I25.119 Atherosclerotic heart disease of native coronary artery with unspecified angina pectoris; M79.7 Fibromyalgia; K21.9 Gastro-esophageal reflux disease without esophagitis; E78.5 Hyperlipidemia, unspecified; I25.2 Old myocardial infarction; M19.90 Unspecified osteoarthritis, unspecified site; E11.319 Type 2 diabetes mellitus with unspecified diabetic retinopathy without macular edema; F32.9 Major depressive disorder, single episode, unspecified; I12.9 Hypertensive chronic kidney disease with stage 1 through stage 4 chronic kidney disease, or unspecified chronic kidney disease; N18.3 Chronic kidney disease, stage 3 (moderate); F41.9 Anxiety disorder, unspecified; Z79.4 Long term (current) use of insulin; Z79.82 Long term (current) use of aspirin; Z79.899 Other long term (current) drug therapy; Z79.891 Long term (current) use of opiate analgesic; Z87.81 Personal history of (healed) traumatic fracture; Z88.8 Allergy status to other drugs, medicaments and biological substances; Z88.0 Allergy status to penicillin; Z88.5 Allergy status to narcotic agent; Z95.5 Presence of coronary angioplasty implant and graft; Z95.810 Presence of automatic (implantable) cardiac defibrillator; Z90.49 Acquired absence of other specified parts of digestive tract; Z98.84 Bariatric surgery status; Z96.652 Presence of left artificial knee joint; W08.XXXA Fall from other furniture, initial encounter; Y93.89 Activity, other specified; Y92.003 Bedroom of unspecified non-institutional (private) residence as the place of occurrence of the external cause
CPT/HCPCS: 36415; 73502; 80053; 85025; 85610; 85730; 99284

== ENCOUNTER 2019-10-15 05:39 | Inpatient (IN) | payer MEDICARE ==
[2019-10-15] MEDS ORDERED: MORPHINE SULFATE 4 MG/ML SYRINGE IM STA (05:50)
--- NOTE | 2019-10-15 06:40 | ED ---
Lower Extremity Injury HPI - General Source: patient, EMS Mode of arrival: EMS Limitations: physical limitation - History of Present Illness Complaint: hip injury <Patricia Emanuel - Last Filed: 10/15/19 06:37> <Abel Hickey - Last Filed: 10/15/19 08:09> - General Chief Complaint: Extremity Injury, Lower Stated Complaint: Hip Pain Time Seen by Provider: 10/15/19 05:40 - History of Present Illness Initial Comments: Dodie is a 64 yo female who presents to the ER today via ambulance for reevaluation of right hip pain. Patient reports that she had a fall last week, she came to the ER and had x-rays which revealed no obvious fractures but diffuse own demineralization. She was discharged home with Toradol and muscle relaxers. Patient reports she's been taking these but has continued pain. She followed up with her primary care physician who did not repeat any imaging. Patient reports she has been using a wheelchair home, she is usually able to transfer from wheelchair to bed. She states the pain is been intolerable she has pain with any movement of her hip pain that radiates from the hip down into her femur. She's not noticed any bruising or swelling. Patient reports the pain is been on tolerable which prompted her to return to the ER. Patient states she can't find a comfortable position she can't sleep. (Patricia Emanuel) - Related Data Home Medications Medication Instructions Recorded Confirmed Omeprazole [PriLOSEC] 40 mg PO AC-BRKFST 08/06/14 10/09/19 Cyclobenzaprine [Flexeril] 10 mg PO HS 07/03/15 10/09/19 Escitalopram [Lexapro] 20 mg PO DAILY 09/23/16 10/09/19 Rosuvastatin Calcium 40 mg PO DAILY 10/22/16 10/09/19 Calcitriol 0.5 mcg PO MOWEFR 03/18/18 10/09/19 Furosemide [Lasix] 40 mg PO QAM 03/18/18 10/09/19 Potassium Chloride ER [K-Dur 10] 10 meq PO Q48H 03/18/18 10/09/19 traMADol HCL [Ultram] 50 mg PO HS 03/18/18 10/09/19 ALPRAZolam [Xanax] 0.25 mg PO TID PRN 09/30/18 10/09/19 Metoprolol Succinate (ER) [Toprol 50 mg PO DAILY 09/30/18 10/09/19 XL] Furosemide [Lasix] 20 mg PO HS 01/15/19 10/09/19 Insulin Aspart (For Pump) [NovoLOG 0.01 unit SQ-PUMP CONTINUOUS 01/15/19 10/09/19 (For Pump)] Ergocalciferol [Vitamin D2] 50,000 unit PO Q28D 04/13/19 10/09/19 Ezetimibe [Zetia] 10 mg PO DAILY 06/15/19 10/09/19 Previous Rx's Medication Instructions Recorded Aspirin 81 mg PO DAILY 10/27/16 Allergies Allergy/AdvReac Type Severity Reaction Status Date / Time adhesive tape Allergy Rash/Hives Verified 10/15/19 05:46 Penicillins Allergy Rash/Hives Verified 10/15/19 05:46 atorvastatin AdvReac Myalgia Verified 10/15/19 05:46 meperidine HCl [From Demerol] AdvReac Hallucinati Verified 10/15/19 05:46 ons Review of Systems ROS Other: All systems not noted in ROS Statement are negative. <Ptaricia Emanuel - Last Filed: 10/15/19 06:37> ROS Other: All systems not noted in ROS Statement are negative. <Abel Hickey - Last Filed: 10/15/19 08:09> ROS Statement: Those systems with pertinent positive or pertinent negative responses have been documented in the HPI. Past Medical History Past Medical History: Asthma, Coronary Artery Disease (CAD), Chest Pain / Angina, Diabetes Mellitus, Eye Disorder, Fibromyalgia, GERD/Reflux, Hyperlipidemia, Hypertension, Myocardial Infarction ([place]), Osteoarthritis (OA), Pneumonia, Renal Disease, Syncope, Vascular Disorder Additional Past Medical History / Comment(s): insulin pump. numbness and tingling bilateral feet, PAD. anemia. 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 BRUISES EASILY. SHORT OF BREATH,BALANCE ISSUES AND LIGHTHEADED W/ ACTIVITY. migraines,hx hiatal hernia, constipation Last Myocardial Infarction Date:: 02/12/2016 History of Any Multi-Drug Resistant Organisms: None Reported Past Surgical History: Adenoidectomy, AICD, Bariatric Surgery, Cholecystectomy, Heart Catheterization, Heart Catheterization With Stent, Hernia Repair, Joint Replacement, Tonsillectomy Additional Past Surgical History / Comment(s): RT anterior tibial artery PTBA with post procedure hematoma, L fem/pop arthrectomy with PTBA/stent. angiogram, LT hand little finger amputated. L arm surgery for staph infection. 3 hernia repairs. hiatal hernia repair, lap band placed, removed, THEN gastric sleeve. bilateral cataract removal, XAVIER SHOULDER manipulation, lt elbow drained d/t staph infection 2005, on e cardiac stent, left knee replacement Past Anesthesia/Blood Transfusion Reactions: Postoperative Nausea & Vomiting (PONV) Additional Past Anesthesia/Blood Transfusion Reaction / Comment(s): LAST Blood Transfusion, 02/2016. Date of Last Stent Placement:: 02/2016 Type of Cardiac Device: AICD Device Placement Date:: Past Psychological History: Anxiety, Depression Smoking Status: Never smoker Past Alcohol Use History: None Reported Past Drug Use History: Marijuana - Past Family History Father Additional Family Medical History / Comment(s): . Mother Family Medical History: Deep Vein Thrombosis (DVT) Additional Family Medical History / Comment(s): . <Patricia Emanuel P - Last Filed: 10/15/19 06:37> General Exam Limitations: physical limitation <Patricia Emanuel - Last Filed: 10/15/19 06:37> - General Exam Comments Initial Comments: Physical Exam GENERAL: Appears older than stated age HENT: Normocephalic, Atraumatic. EYES: PERRL, EOMI PULMONARY: Unlabored respirations. CARDIOVASCULAR: RRR Warm and well perfused extremities ABDOMEN: Non-distended SKIN: No rashes or bruising : Deferred NEUROLOGIC: Alert and oriented Normal speech MUSCULOSKELETAL: Right hip and knee held in flexed position No obvious deformity, swelling, redness or injury No bruising or lacerations PSYCHIATRIC: Agitated (Patricia Emanuel) Course Vital Signs 10/15/19 10/15/19 10/15/19 05:42 06:07 07:22 Temperature 98.8 F Pulse Rate 56 L 56 L Respiratory 16 16 18 Rate Blood Pressure 147/72 161/68 O2 Sat by Pulse 99 98 Oximetry Medical Decision Making <Patricia Emanuel - Last Filed: 10/15/19 06:37> - Radiology Data Radiology results: report reviewed (Computed tomography scan of the femur and right hip shows nondisplaced extraocular fracture posterior aspect of the right greater trochanter. Associated subcutaneous hematoma.) <Abel Hickey - Last Filed: 10/15/19 08:09> - Medical Decision Making Patient was seen and evaluated history is obtained from patient and EMS and review of medical record 64-year-old female with a fall last week with persistent pain and inability to ambulate inability to bear weight Given the patient has had x-rays we will now computed tomography scan the hip and femur to assess for any occult injury She's vital signs are within normal limits her physical exam is unremarkable no obvious injuries to show signs of a septic joint. (Patricia Emanuel) Patient reevaluated by myself, Dr. Hickey. Patient does have discomfort right lateral hip. Pedal pulses intact. Distal movement intact. Sensation is somewhat decreased which patient states is normal for her secondary to neuropathy. CT report reviewed. Case discussed with Dr. Palumbo, who will consult however states this is a nonsurgical case. Case also discussed with Dr. Levi who will admit his patient. (Abel Hickey) Disposition <Patricia Emanuel - Last Filed: 10/15/19 06:37> Is patient prescribed a controlled substance at d/c from ED?: No Decision Time: 08:09 <Abel Hickey - Last Filed: 10/15/19 08:09> Clinical Impression: Greater trochanter fracture Disposition: ADMITTED IP TO THIS HOSP Referrals: Jairo Levi DO [Primary Care Provider] - 1-2 days
--- NOTE | 2019-10-15 07:05 | CT ---
EXAM: CT Right Lower Extremity Without Intravenous Contrast CLINICAL HISTORY: Evaluate for fracture. TECHNIQUE: Axial computed tomography images of the right lower extremity without intravenous contrast. CTDI is 16.6 mGy and DLP is 908.6 mGy-cm. This CT exam was performed using one or more of the following dose reduction techniques: automated exposure control, adjustment of the mA and/or kV according to patient size, and/or use of iterative reconstruction technique. COMPARISON: No relevant prior studies available. FINDINGS: Nondisplaced, extra-articular fracture of the posterior aspect of the right greater trochanter measuring approximately 2.0 cm. This does not extend into the intertrochanteric region. The lesser trochanter is intact. Associated, moderate subcutaneous hematoma within the soft tissues overlying the right greater trochanter, measuring approximately 9.2 cm anteroposterior by 15.5 cm superior to inferior. There is severe osseous demineralization. There are mild degenerative changes of the right hip joint, consisting of mild osteophytic spurring of the lateral acetabular rim without significant joint space narrowing. There is mild asphericity of the right femoral head. The right superior and inferior pubic rami are intact. Atherosclerotic changes of the femoral vessels are incidentally noted. Evaluation of the distal femur demonstrates no fracture. Severe demineralization changes of the knee. IMPRESSION: Nondisplaced, extra-articular fracture of the posterior aspect of the right greater trochanter measuring approximately 2.0 cm. This does not extend into the intertrochanteric region. The lesser trochanter is intact. Associated, moderate subcutaneous hematoma within the soft tissues overlying the right greater trochanter, measuring approximately 9.2 cm anteroposterior by 15.5 cm superior to inferior.
[2019-10-15] MEDS ORDERED: MORPHINE SULFATE 4 MG/ML SYRINGE IVP STA (08:02)
[2019-10-15] MEDS ORDERED: NALOXONE 0.4 MG/ML 1 ML VIAL IV PRN (08:09)
[2019-10-15] MEDS: SODIUM CHLORIDE 0.9% 1,000 ML IV SCH (08:15)
[2019-10-15 08:32] LABS: Basophils # (A) 0.1 k/uL (0-0.2); Basophils % (A) 1 %; Eosinophils # (A) 0.3 k/uL (0-0.7); Eosinophils % (A) 4 %; HGB 12.5 gm/dL (11.4-16.0); Lymphocytes # (A) 2.7 k/uL (1.0-4.8); Lymphocytes % (A) 33 %; MCH 27.9 pg (25.0-35.0); MCHC 32.1 g/dL (31.0-37.0); MCV 86.9 fL (80.0-100.0); Mean Platelet Volume 7.4; Monocytes # (A) 0.4 k/uL (0-1.0); Monocytes % (A) 4 %; Neutrophils # (A) 4.5 k/uL (1.3-7.7); Neutrophils % (A) 56 %; Platelet Count 248 k/uL (150-450); RBC 4.49 m/uL (3.80-5.40); RDW 13.5 % (11.5-15.5); WBC 8.2 k/uL (3.8-10.6)
[2019-10-15 08:45] LABS: ALT <6 U/L (4-34); AST 26 U/L (14-36); African American GFR (CKD) 55 (>60 ml/min/1.73 sqM); Albumin 3.2 g/dL (3.5-5.0); Alkaline Phosphatase 81 U/L (38-126); Anion Gap 8 mmol/L; Blood Urea Nitrogen 25 mg/dL (7-17); Calcium 8.6 mg/dL (8.4-10.2); Carbon Dioxide 27 mmol/L (22-30); Chloride 104 mmol/L (98-107); Glucose 92 mg/dL (74-99); Non-African American GFR(CKD) 47 (>60 ml/min/1.73 sqM); Sodium 139 mmol/L (137-145); Total Bilirubin 0.8 mg/dL (0.2-1.3); Total Protein 6.2 g/dL (6.3-8.2)
[2019-10-15] MEDS: traMADol 50 MG TAB PO PRN (10:50)
[2019-10-15] MEDS: MORPHINE SULFATE 4 MG/ML SYRINGE IV PRN ×4 (11:50→23:46)
[2019-10-15] MEDS ORDERED: ALPRAZolam 0.25 MG TAB PO PRN (12:01)
[2019-10-15] MEDS ORDERED: Insulin Aspart (For Pump) 100 UNIT/ML VIAL SQ-PUMP SCH (12:15)
[2019-10-15] MEDS: METOPROLOL SUCCINATE (ER) 50 MG TAB.ER.24H PO SCH (13:06)
[2019-10-15] MEDS: PANTOPRAZOLE 40 MG TABLET PO SCH (13:06)
[2019-10-15] MEDS: CALCITRIOL 0.25 MCG CAP PO SCH (13:07)
[2019-10-15] MEDS: HYDROcodone/APAP 5-325MG 1 EACH TAB PO PRN ×2 (13:07→20:03)
[2019-10-15] MEDS: INSULIN ASPART (NovoLOG) 100 UNIT/ML VIAL SQ SCH ×3 (13:07→21:12)
[2019-10-15 13:13] LABS: Glucose,Whole Blood 127 mg/dL (75-99)
--- NOTE | 2019-10-15 13:45 | P.CNOR ---
History of Present Illness - [facility] Consult date: 10/15/19 Consult reason: fracture History of present illness: Patient is a 64-year-old female who presented to [facility] due to significant pain involving her right leg/hip area.apparently patient had a f all last week, she fell out of bed on her right side. Since the fall her right hip is been bothering her significantly. Patient normally uses a wheelchair for ambulation. She does not walk on her own, this then her presents today for the last few years. Upon arrival to the hospital, imaging and lab tests were done. CT images did demonstrate a nondisplaced fracture involving the right greater trochanter of the femur. Patient was admitted under internal medicine due to pain control and inability to ambulate. Patient was evaluated today at bedside this morning, she is resting comfortably. She notes most pain involving the right lower extremity when she moves. She has a history of a left femoral neck fracture which she underwent a left hip hemiarthroplasty [address] Palumbo[address] She has no complaints involving the left lower extremity. She denies any headaches, lightheadedness, chest pain or shortness of breath at this time. Review of Systems Constitutional: Reports as per HPI Past Medical History Past Medical History: Asthma, Coronary Artery Disease (CAD), Chest Pain / Angina, Heart Failure, Diabetes Mellitus, Eye Disorder, Fibromyalgia, GERD/Reflux, Hyperlipidemia, Hypertension, Myocardial Infarction ([place]), Osteoarthritis (OA), Pneumonia, Renal Disease, Syncope, Vascular Disorder Additional Past Medical History / Comment(s): IDDM type II with insulin pump, neuropathy bilateral feet/legs, bilateral eye macular degeneration/diabetic retinopathy, CKD stage III, UTIs with one recently tx with antibiotic, bronchitis, IBS, constipation with last BM 10/14/19, DJD, osteopenia, L hip fracture with surgery, T12 compression fx with surgery, PAD with past bilateral foot wounds/currently has 2 small black spots on R great toe and L 2nd toe, vertigo, migraines, light headed with activity, bruises easily. Last Myocardial Infarction Date:: 02/12/2016 History of Any Multi-Drug Resistant Organisms: None Reported Past Surgical History: Adenoidectomy, AICD, Bariatric Surgery, Breast Surgery, Cholecystectomy, Heart Catheterization, Heart Catheterization With Stent, Hernia Repair, Joint Replacement, Orthopedic Surgery, Tonsillectomy Additional Past Surgical History / Comment(s): PCI/stent, AICD, lap band with removal/gastric sleeve, EGDs, colonoscopies, hiatal hernia surgery, multiple incisional hernia repairs/mesh, bilateral shoulder manipulation, total L hip arthroplasty, L little finger amputation, L elbow staph infection with surgery, T12 kyphoplasty/biopsy, R anterior PTBA with subsequent hematoma, L fempop arthrectomy/PTBA/stent, angiograms. bilateral breast benign biopsies, D&C. Past Anesthesia/Blood Transfusion Reactions: Postoperative Nausea & Vomiting (PONV) Additional Past Anesthesia/Blood Transfusion Reaction / Comm: Past blood transfusion 2015-no reaction. Date of Last Stent Placement:: 02/2016 Type of Cardiac Device: AICD Device Placement Date:: Smoking Status: Former smoker - Past Family History Father Family Medical History: Diabetes Mellitus Additional Family Medical History / Comment(s): Alcoholism. Mother Family Medical History: COPD, Diabetes Mellitus, Deep Vein Thrombosis (DVT) Additional Family Medical History / Comment(s): . Medications and Allergies Home Medications Medication Instructions Recorded Confirmed Type Omeprazole [PriLOSEC] 40 mg PO AC-BRKFST 08/06/14 10/15/19 History Cyclobenzaprine [Flexeril] 10 mg PO HS 07/03/15 10/15/19 History Escitalopram [Lexapro] 20 mg PO DAILY 09/23/16 10/15/19 History Rosuvastatin Calcium 40 mg PO DAILY 10/22/16 10/15/19 History Aspirin 81 mg PO DAILY 10/27/16 10/15/19 Rx Calcitriol 0.5 mcg PO MOWEFR 03/18/18 10/15/19 History Furosemide [Lasix] 40 mg PO QAM 03/18/18 10/15/19 History Potassium Chloride ER [K-Dur 10] 10 meq PO Q48H 03/18/18 10/15/19 History traMADol HCL [Ultram] 50 mg PO HS 03/18/18 10/15/19 History ALPRAZolam [Xanax] 0.25 mg PO TID PRN 09/30/18 10/15/19 History Metoprolol Succinate (ER) [Toprol 50 mg PO DAILY 09/30/18 10/15/19 History XL] Furosemide [Lasix] 20 mg PO HS 01/15/19 10/15/19 History Insulin Aspart (For Pump) [NovoLOG 0.01 unit SQ-PUMP DIRECTED 01/15/19 10/15/19 History (For Pump)] Ergocalciferol [Vitamin D2] 50,000 unit PO Q28D 04/13/19 10/15/19 History Ezetimibe [Zetia] 10 mg PO DAILY 06/15/19 10/15/19 History HYDROcodone/APAP 5-325MG [[place] 1 tab PO Q6H PRN 10/15/19 10/15/19 History 5-325] Allergies Allergy/AdvReac Type Severity Reaction Status Date / Time adhesive tape Allergy Rash/Hives Verified 10/15/19 08:12 Penicillins Allergy Rash/Hives Verified 10/15/19 08:12 atorvastatin AdvReac Myalgia Verified 10/15/19 08:12 meperidine HCl [From Demerol] AdvReac Hallucinati Verified 10/15/19 08:12 ons Physical Examination Right lower extremity: No open lesions or sores visualized, and there is no significant areas of erythema or soft tissue swelling No significant leg length discrepancy appreciated of the bilateral legs She is unable to straight leg raise, logroll maneuver does reproduce pain Tender with palpation over the greater trochanter Patient's hip and knee are flexed to both about 90, this is a comfortable position for her Logroll maneuver of the left lower extremity reproduces no pain No effusion present around the knee, no tenderness with palpation Calf is soft, tenderness with palpation Sensory exam to light touch throughout the extremity is intact Dorsalis pedis pulses 2+ Results - Labs Labs: Abnormal Lab Results - Last 24 Hours (Table) 10/15/19 10/15/19 Range/Units 08:08 13:00 BUN 25 H (7-17) mg/dL Creatinine 1.21 H (0.52-1.04) mg/dL POC Glucose (mg/dL) 127 H (75-99) mg/dL Total Protein 6.2 L (6.3-8.2) g/dL Albumin 3.2 L (3.5-5.0) g/dL H & H 10/15/19 Range/Units 08:08 Hgb 12.5 (11.4-16.0) gm/dL Hct 39.0 (34.0-46.0) % Result Diagrams: 10/15/19 08:08 10/15/19 08:08 - Diagnostic results Hip CT: report reviewed, image reviewed (Computed tomography scan of the femur and hip do demonstrate the nondisplaced fracture involving the right greater trochanter of the femur) Assessment and Plan Assessment: Nondisplaced right greater trochanteric femur fracture Status post fall from bed Multiple medical comorbidities Plan: I was able to discuss the case, including the physical exam findings and imaging studies with my attending Dr. Palumbo. No surgical intervention recommended at this time. Recommend conservative management, this to include icing and elevating along with oral medication Recommend 50% weightbearing with walker, physical therapy evaluation Patient did explain to me that she was recently set up with home physical therapy due to her general health and level of deconditioning I'm concerned with her ability to return home at this time due to her current condition and multiple areas with stairs. Consider subacute rehab placement Other medical staff manager recommendations We'll be available to answer any further questions, we'll monitor the patient during her stay Time with Patient: Less than 30
[2019-10-15 17:06] LABS: Glucose,Whole Blood 128 mg/dL (75-99)
[2019-10-15 20:10] LABS: Glucose,Whole Blood 133 mg/dL (75-99)
[2019-10-15] MEDS: traMADol 50 MG TAB PO SCH (21:15)
[2019-10-16] MEDS: HYDROcodone/APAP 5-325MG 1 EACH TAB PO PRN ×3 (02:32→18:05)
[2019-10-16] MEDS: MORPHINE SULFATE 4 MG/ML SYRINGE IV PRN ×3 (04:02→14:53)
[2019-10-16] MEDS: traMADol 50 MG TAB PO PRN ×3 (06:55→19:08)
[2019-10-16 07:21] LABS: Glucose,Whole Blood 118 mg/dL (75-99)
[2019-10-16 07:42] LABS: Basophils % (A) 0 %; Eosinophils # (A) 0.3 k/uL (0-0.7); Eosinophils % (A) 5 %; HCT 37.8 % (34.0-46.0); Lymphocytes # (A) 2.3 k/uL (1.0-4.8); Lymphocytes % (A) 35 %; MCH 28.3 pg (25.0-35.0); MCHC 31.7 g/dL (31.0-37.0); Mean Platelet Volume 7.6; Monocytes # (A) 0.3 k/uL (0-1.0); Monocytes % (A) 5 %; Neutrophils # (A) 3.5 k/uL (1.3-7.7); Neutrophils % (A) 53 %; Platelet Count 221 k/uL (150-450); RBC 4.24 m/uL (3.80-5.40); RDW 13.7 % (11.5-15.5); WBC 6.5 k/uL (3.8-10.6)
[2019-10-16 07:57] LABS: Calcium 8.6 mg/dL (8.4-10.2); Potassium 4.4 mmol/L (3.5-5.1)
[2019-10-16] MEDS: INSULIN ASPART (NovoLOG) 100 UNIT/ML VIAL SQ SCH ×4 (09:23→21:03)
[2019-10-16] MEDS: EZETIMIBE 10 MG TAB PO SCH (09:24)
[2019-10-16] MEDS: PANTOPRAZOLE 40 MG TABLET PO SCH (09:24)
[2019-10-16] MEDS: METOPROLOL SUCCINATE (ER) 50 MG TAB.ER.24H PO SCH (09:24)
[2019-10-16] MEDS: ESCITALOPRAM 20 MG TAB PO SCH (09:24)
[2019-10-16] MEDS: CRESTOR 40 MG PO SCH (09:25)
[2019-10-16] MEDS: SODIUM CHLORIDE 0.9% 1,000 ML IV SCH (09:34)
[2019-10-16 11:27] LABS: Glucose,Whole Blood 148 mg/dL (75-99)
--- NOTE | 2019-10-16 11:30 | P.PN ---
Subjective Progress Note Date: 10/16/19 This is a 64-year-old female rolled out of bed, sustaining a nondisplaced fracture of the right greater trochanter of the femur. Evaluated by orthopedic surgery with no surgical intervention recommended at this time. Complains of spasms. Denies chest pain, palpitations or shortness of breath. Denies li ghtheadedness dizziness or focal deficits. Vital signs stable, maintaining O2 sats in the 90s on room air. Creatinine 1.24. Objective - Vital Signs Vital signs: Vital Signs Temp 97.7 F 10/16/19 05:00 Pulse 71 10/16/19 05:00 Resp 18 10/16/19 05:00 BP 117/72 10/16/19 05:00 Pulse Ox 97 10/16/19 05:00 Intake & Output 10/15/19 10/16/19 10/16/19 18:59 06:59 18:59 Intake Total 1200 600 Balance 1200 600 Weight 84.822 kg Intake: Oral 1200 600 Other: Voiding Method Bedpan Bedpan Bedpan # Voids 1 - Exam PHYSICAL EXAMINATION: GENERAL: The patient is alert and oriented x3, not in any acute distress. Well developed, well nourished. HEENT: Pupils are round and equally reacting to light. EOMI. No scleral icterus. No conjunctival pallor. Normocephalic, atraumatic. No pharyngeal erythema. No thyromegaly. CARDIOVASCULAR: S1 and S2 present. No murmurs, rubs, or gallops. PULMONARY: Chest is clear to auscultation, no wheezing or crackles. ABDOMEN: Soft, nontender, nondistended, normoactive bowel sounds. No palpable organomegaly. MUSCULOSKELETAL: No joint swelling or deformity. EXTREMITIES: Right leg tender, positive sensation, positive DP pulse NEUROLOGICAL: Gross neurological examination did not reveal any focal deficits. SKIN: No rashes. - Labs CBC & Chem 7: 10/16/19 07:06 10/16/19 07:06 Labs: Abnormal Lab Results - Last 24 Hours (Table) 10/15/19 10/15/19 10/15/19 Range/Units 13:00 17:01 19:53 Sodium (137-145) mmol/L BUN (7-17) mg/dL Creatinine (0.52-1.04) mg/dL Glucose (74-99) mg/dL POC Glucose (mg/dL) 127 H 128 H 133 H (75-99) mg/dL 10/16/19 10/16/19 Range/Units 07:06 07:19 Sodium 135 L (137-145) mmol/L BUN 30 H (7-17) mg/dL Creatinine 1.24 H (0.52-1.04) mg/dL Glucose 121 H (74-99) mg/dL POC Glucose (mg/dL) 118 H (75-99) mg/dL Assessment and Plan Assessment: Nondisplaced right greater trochanteric femur fracture status post fall from bed, conservative management as per orthopedic surgery History of left hip hemiarthroplasty Recent repair of recurrent incisional hernia Chronic intermittent asthma, stable CAD Chronic CHF, systolic dysfunction. Ischemic cardiomyopathy Moderate pulmonary hypertension Chronic kidney disease secondary to hypertensive nephrosclerosis Fibromyalgia Gastroesophageal reflux disease Hypertension Hyperlipidemia PAD Plan: Continue on current medication regime ,monitoring and tympanic treatment. Complaining of spasms, Flexeril ordered. PT/OT consulted-50% weightbearing with walker as per orthopedic's recommendations. Follow closely with orthopedic surgery/conservative management. Potential subacute rehab at discharge. The impression and plan of care has been dictated as directed. : I performed a history and examination of this patient, discussed the same with the dictator. I agree with the dictator's note ,documented as a scribe. Any additional findings or plans will be noted.
[2019-10-16] MEDS: CYCLOBENZAPRINE 5 MG TAB PO PRN ×2 (12:55→21:03)
[2019-10-16 17:10] LABS: Glucose,Whole Blood 140 mg/dL (75-99)
[2019-10-16 20:11] LABS: Glucose,Whole Blood 141 mg/dL (75-99)
[2019-10-17] MEDS: traMADol 50 MG TAB PO SCH ×2 (00:31→20:34)
[2019-10-17] MEDS: HYDROcodone/APAP 5-325MG 1 EACH TAB PO PRN ×2 (02:46→08:54)
[2019-10-17 07:05] LABS: Glucose,Whole Blood 112 mg/dL (75-99)
[2019-10-17] MEDS: INSULIN ASPART (NovoLOG) 100 UNIT/ML VIAL SQ SCH ×4 (07:20→20:36)
[2019-10-17 07:47] LABS: Basophils % (A) 0 %; Eosinophils # (A) 0.3 k/uL (0-0.7); Eosinophils % (A) 5 %; HCT 36.4 % (34.0-46.0); HGB 11.5 gm/dL (11.4-16.0); Lymphocytes % (A) 30 %; MCH 28.1 pg (25.0-35.0); MCHC 31.7 g/dL (31.0-37.0); MCV 88.8 fL (80.0-100.0); Mean Platelet Volume 7.5; Monocytes # (A) 0.4 k/uL (0-1.0); Monocytes % (A) 6 %; Neutrophils # (A) 3.8 k/uL (1.3-7.7); Neutrophils % (A) 58 %; Platelet Count 223 k/uL (150-450); RDW 13.7 % (11.5-15.5); WBC 6.5 k/uL (3.8-10.6)
[2019-10-17 08:03] LABS: Calcium 8.8 mg/dL (8.4-10.2); Potassium 4.6 mmol/L (3.5-5.1)
[2019-10-17] MEDS: traMADol 50 MG TAB PO PRN (08:46)
[2019-10-17] MEDS: METOPROLOL SUCCINATE (ER) 50 MG TAB.ER.24H PO SCH (08:46)
[2019-10-17] MEDS: CYCLOBENZAPRINE 5 MG TAB PO PRN (08:46)
[2019-10-17] MEDS: PANTOPRAZOLE 40 MG TABLET PO SCH (08:46)
[2019-10-17] MEDS: CRESTOR 40 MG PO SCH (08:47)
[2019-10-17] MEDS: SODIUM CHLORIDE 0.9% 1,000 ML IV SCH (08:47)
[2019-10-17] MEDS: ESCITALOPRAM 20 MG TAB PO SCH (08:54)
[2019-10-17] MEDS: EZETIMIBE 10 MG TAB PO SCH (08:54)
[2019-10-17] MEDS: CYCLOBENZAPRINE 10 MG TAB PO SCH ×2 (11:27→15:45)
[2019-10-17 11:36] LABS: Glucose,Whole Blood 190 mg/dL (75-99)
[2019-10-17] MEDS: CALCITRIOL 0.25 MCG CAP PO SCH (12:51)
--- NOTE | 2019-10-17 14:01 | P.PN ---
Subjective Progress Note Date: 10/17/19 This is a 64-year-old female rolled out of bed, sustaining a nondisplaced fracture of the right greater trochanter of the femur. Evaluated by orthopedic surgery with no surgical intervention recommended at this time. Complains of spasms. Denies chest pain, palpitations or shortness of breath. Denies li ghtheadedness dizziness or focal deficits. Vital signs stable, maintaining O2 sats in the 90s on room air. Creatinine 1.24. 10/17/2019 evaluated by PT with subacute rehab recommended at discharge. Complains of uncontrolled pain, crying. Reports no relief from current regimen. Denies chest pain, palpitations or shortness of breath. Afebrile, normal WBC. Blood sugars controlled. Creatinine improving down to 1.14. Objective - Vital Signs Vital signs: Vital Signs Temp 98.0 F 10/17/19 12:57 Pulse 69 10/17/19 12:57 Resp 15 10/17/19 12:57 BP 116/72 10/17/19 12:57 Pulse Ox 95 10/17/19 12:57 Intake & Output 10/16/19 10/17/19 10/17/19 18:59 06:59 18:59 Intake Total 840 80 460 Balance 840 80 460 Intake: Intake, IV Titration 80 Amount Sodium Chloride 0.9% 1, 80 000 ml @ 20 mls/hr IV . Q24H [facility] Rx#:[id number] Oral 840 460 Other: Voiding Method Bedpan Bedpan Bedpan # Voids 2 0 - Exam PHYSICAL EXAMINATION: GENERAL:alert and oriented x3, currently teary-eyed, complaining of significant pain HEENT: Pupils are round and equally reacting to light. EOMI. No scleral icterus. No conjunctival pallor. Normocephalic, atraumatic. No pharyngeal erythema. No thyromegaly. CARDIOVASCULAR: S1 and S2 present. No murmurs, rubs, or gallops. PULMONARY: Chest is clear to auscultation, no wheezing or crackles. No rhonchi ABDOMEN: Soft, nontender, nondistended, normoactive bowel sounds. No palpable organomegaly. MUSCULOSKELETAL: No joint swelling or deformity. EXTREMITIES: Right leg tender, positive sensation, positive DP pulse NEUROLOGICAL: Gross neurological examination did not reveal any focal deficits. SKIN: No rashes. - Labs CBC & Chem 7: 10/17/19 06:44 10/17/19 06:44 Labs: Abnormal Lab Results - Last 24 Hours (Table) 10/16/19 10/16/19 10/17/19 Range/Units 17:08 20:08 06:44 Sodium 135 L (137-145) mmol/L BUN 30 H (7-17) mg/dL Creatinine 1.14 H (0.52-1.04) mg/dL Glucose 113 H (74-99) mg/dL POC Glucose (mg/dL) 140 H 141 H (75-99) mg/dL 10/17/19 10/17/19 Range/Units 07:03 11:34 Sodium (137-145) mmol/L BUN (7-17) mg/dL Creatinine (0.52-1.04) mg/dL Glucose (74-99) mg/dL POC Glucose (mg/dL) 112 H 190 H (75-99) mg/dL Assessment and Plan Assessment: Nondisplaced right greater trochanteric femur fracture status post fall from bed, conservative management as per orthopedic surgery History of left hip hemiarthroplasty Recent repair of recurrent incisional hernia Chronic intermittent asthma, stable CAD Chronic CHF, systolic dysfunction. Ischemic cardiomyopathy Moderate pulmonary hypertension Chronic kidney disease secondary to hypertensive nephrosclerosis Fibromyalgia Gastroesophageal reflux disease Hypertension Hyperlipidemia PAD Plan: Continue on current medication regime ,monitoring and tympanic treatment. Pain management. Increased [place], increased and scheduled Flexeril. PT/OT - recommending subacute rehab at discharge. Orthopedic surgery notified of significant pain with further recommendations pending . The impression and plan of care has been dictated as directed. : I performed a history and examination of this patient, discussed the same with the dictator. I agree with the dictator's note ,documented as a scribe. Any additional findings or plans will be noted.
[2019-10-17] MEDS: HYDROcodone/APAP 10-325MG 1 EACH TAB PO PRN (15:41)
[2019-10-17 17:15] LABS: Glucose,Whole Blood 150 mg/dL (75-99)
[2019-10-17] MEDS: MORPHINE SULFATE 4 MG/ML SYRINGE IV PRN (18:07)
[2019-10-17 20:15] LABS: Glucose,Whole Blood 138 mg/dL (75-99)
--- NOTE | 2019-10-17 22:52 | P.HPIM ---
History of Present Illness H&P Date: 10/15/19 Chief Complaint: Right hip pain Patient is a pleasant 64-year-old white female who is initially rolling on her side in bed when she fell approximately 2-3 feet injuring her right hip. She was in excruciating pain and came to the hospital last week and had evaluation x-rays done showed no fracture she return for visit prior to admission my office where examination is showing pain discomfort. She is treated more aggressively stated if she was not improved return to the emergency room for further CAT scan. 2 days later she returns to the hospital and a CAT scan revealed a nondisplaced. inter trochanteric fracture requiring no surgery. She is subsequently admitted for increasing pain. Patient suffers from diabetes she is currently on insulin pump is also known to have coronary artery disease and is morbidly obese Review of Systems GENERAL: Patient denies fever. Denies chills. EYES: Denies blurred vision. Denies vision changes. Denies eye pain. EARS, NOSE, MOUTH, & THROAT: Denies headache. Denies sore throat. Denies ear pain. RESPIRATORY: Denies cough. Denies shortness of breath. Denies sputum production. Denies hemoptysis. CARDIOVASCULAR: Denies chest pain or pressure. Denies palpitations. Denies arrhythmias. GASTROINTESTINAL: Denies abdominal pain. Denies diarrhea. Denies constipation. Denies nausea. Denies vomiting. Denies heartburn. Denies blood in the stool. GENITOURINARY: Denies urinary frequency. Denies burning. Denies dysuria. Denies cloudy urine. Denies blood in the urine. MUSCULOSKELETAL: Has significant right hip myalgias, joint swelling. With decreased range of motion beyond patients baseline of the right hip and lower extremity INTEGUMENTARY: Denies pruitis. Denies rash. PSYCHIATRIC: Denies suicidal or homicial ideations. ENDOCRINE: Denies weight change. Denies polydipsia. Denies polyuria. HEMATOLOGIC: Denies bleeding disorders. Past Medical History Past Medical History: Asthma, Coronary Artery Disease (CAD), Chest Pain / Angina, Heart Failure, Diabetes Mellitus, Eye Disorder, Fibromyalgia, GERD/Reflux, Hyperlipidemia, Hypertension, Myocardial Infarction ([place]), Osteoarthritis (OA), Pneumonia, Renal Disease, Syncope, Vascular Disorder Additional Past Medical History / Comment(s): IDDM type II with insulin pump, neuropathy bilateral feet/legs, bilateral eye macular degeneration/diabetic retinopathy, CKD stage III, UTIs with one recently tx with antibiotic, bronchitis, IBS, constipation with last BM 10/14/19, DJD, osteopenia, L hip fracture with surgery, T12 compression fx with surgery, PAD with past bilateral foot wounds/currently has 2 small black spots on R great toe and L 2nd toe, vertigo, migraines, light headed with activity, bruises easily. Last Myocardial Infarction Date:: 02/12/2016 History of Any Multi-Drug Resistant Organisms: None Reported Past Surgical History: Adenoidectomy, AICD, Bariatric Surgery, Breast Surgery, Cholecystectomy, Heart Catheterization, Heart Catheterization With Stent, Hernia Repair, Joint Replacement, Orthopedic Surgery, Tonsillectomy Additional Past Surgical History / Comment(s): PCI/stent, AICD, lap band with removal/gastric sleeve, EGDs, colonoscopies, hiatal hernia surgery, multiple incisional hernia repairs/mesh, bilateral shoulder manipulation, total L hip arthroplasty, L little finger amputation, L elbow staph infection with surgery, T12 kyphoplasty/biopsy, R anterior PTBA with subsequent hematoma, L fempop arthrectomy/PTBA/stent, angiograms. bilateral breast benign biopsies, D&C. Past Anesthesia/Blood Transfusion Reactions: Postoperative Nausea & Vomiting (PONV) Additional Past Anesthesia/Blood Transfusion Reaction / Comment(s): Past blood transfusion 2015-no reaction. Date of Last Stent Placement:: 02/2016 Type of Cardiac Device: AICD Device Placement Date:: Smoking Status: Former smoker - Past Family History Father Family Medical History: Diabetes Mellitus Additional Family Medical History / Comment(s): Alcoholism. Mother Family Medical History: COPD, Diabetes Mellitus, Deep Vein Thrombosis (DVT) Additional Family Medical History / Comment(s): . Medications and Allergies Home Medications Medication Instructions Recorded Confirmed Type Omeprazole [PriLOSEC] 40 mg PO AC-BRKFST 08/06/14 10/15/19 History Cyclobenzaprine [Flexeril] 10 mg PO HS 07/03/15 10/15/19 History Escitalopram [Lexapro] 20 mg PO DAILY 09/23/16 10/15/19 History Rosuvastatin Calcium 40 mg PO DAILY 10/22/16 10/15/19 History Aspirin 81 mg PO DAILY 10/27/16 10/15/19 Rx Calcitriol 0.5 mcg PO MOWEFR 03/18/18 10/15/19 History Furosemide [Lasix] 40 mg PO QAM 03/18/18 10/15/19 History Potassium Chloride ER [K-Dur 10] 10 meq PO Q48H 03/18/18 10/15/19 History traMADol HCL [Ultram] 50 mg PO HS 03/18/18 10/15/19 History ALPRAZolam [Xanax] 0.25 mg PO TID PRN 09/30/18 10/15/19 History Metoprolol Succinate (ER) [Toprol 50 mg PO DAILY 09/30/18 10/15/19 History XL] Furosemide [Lasix] 20 mg PO HS 01/15/19 10/15/19 History Insulin Aspart (For Pump) [NovoLOG 0.01 unit SQ-PUMP DIRECTED 01/15/19 10/15/19 History (For Pump)] Ergocalciferol [Vitamin D2] 50,000 unit PO Q28D 04/13/19 10/15/19 History Ezetimibe [Zetia] 10 mg PO DAILY 06/15/19 10/15/19 History HYDROcodone/APAP 5-325MG [[place] 1 tab PO Q6H PRN 10/15/19 10/15/19 History 5-325] Allergies Allergy/AdvReac Type Severity Reaction Status Date / Time adhesive tape Allergy Rash/Hives Verified 10/15/19 08:12 Penicillins Allergy Rash/Hives Verified 10/15/19 08:12 atorvastatin AdvReac Myalgia Verified 10/15/19 08:12 meperidine HCl [From Demerol] AdvReac Hallucinati Verified 10/15/19 08:12 ons Physical Exam Osteopathic Statement: *. No significant issues noted on an osteopathic structural exam other than those noted in the History and Physical/Consult. Vitals: Vital Signs Temp Pulse Resp BP Pulse Ox 10/17/19 19:37 98.3 F 75 12 122/59 96 10/17/19 12:57 98.0 F 69 15 116/72 95 10/17/19 04:05 98.0 F 71 12 122/71 92 L Intake and Output 10/17/19 10/17/19 10/17/19 06:59 14:59 22:59 Intake Total 460 920 Balance 460 920 Intake: Intake, IV Titration 80 Amount Sodium Chloride 0.9% 1, 80 000 ml @ 20 mls/hr IV . Q24H [facility] Rx#:[id number] Oral 460 840 Other: Voiding Method Bedpan Bedpan # Voids 0 1 1 GENERAL: This is a -C4 year-old in apparent distress at the time of examination. HEENT: Head is atraumatic, normocephalic. Pupils are equal, round, and reactive to light. Sclerae anicteric. Conjunctivae are clear. Mucus membranes of the mout h are moist. Neck is supple. RESPIRATORY: Clear to auscultation. No wheezes, rales, or rhonchi. No use of accessory muscles. Patient maintaining oxygen saturation greater than 92%. No chest wall tenderness is noted on palpation or with deep breathing. CARDIOVASCULAR: Regular rate and rhythm. S1 and S2 noted. No systolic or diastolic murmur auscultated. No JVD noted. No S3 or S4 noted. GASTROINTESTINAL: No distention noted. Abdomen soft and round. Normal active bowel sounds auscultated x 4 quadrants. No pain or tenderness noted upon palpation. INTEGUMENTARY: No cyanosis. No jaundice. No rashes noted. No cellulitis noted. EXTREMITIES: 2+ peripheral pulses. No evidence of peripheral edema. No calf tenderness noted. Pain in the right is range of motion in pain on palpation no significant ecchymosis noted NEUROLOGIC: Cranial nerves II-XII intact. PSYCHIATRIC: Awake, alert, and oriented X 3. Appropriate affect. Intact judgement and insight. Results CBC & Chem 7: 10/17/19 06:44 10/17/19 06:44 Labs: Abnormal Lab Results - Last 24 Hours (Table) 10/17/19 10/17/19 10/17/19 Range/Units 06:44 07:03 11:34 Sodium 135 L (137-145) mmol/L BUN 30 H (7-17) mg/dL Creatinine 1.14 H (0.52-1.04) mg/dL Glucose 113 H (74-99) mg/dL POC Glucose (mg/dL) 112 H 190 H (75-99) mg/dL 10/17/19 10/17/19 Range/Units 17:12 20:11 Sodium (137-145) mmol/L BUN (7-17) mg/dL Creatinine (0.52-1.04) mg/dL Glucose (74-99) mg/dL POC Glucose (mg/dL) 150 H 138 H (75-99) mg/dL Thrombosis Risk Factor Assmnt - Choose All That Apply Any of the Below Risk Factors Present?: Yes Each Factor Represents 1 point: Obesity (BMI >25) Other Risk Factors: Yes Each Risk Factor Represents 2 Points: Age 61-74 years, Patient confined to bed Each Risk Factor Represents 3 Points: Family history of DVT/PE Each Risk Factor Represents 5 Points: Hip, pelvis, or leg fracture (< 1 month) Thrombosis Risk Factor Assessment Total Risk Factor Score: 13 Thrombosis Risk Factor Assessment Level: High Risk Assessment and Plan (1) Greater trochanter fracture Current Visit: Yes Status: Acute Code(s): S72.113A - DISP FX OF GREATER TROCHANTER OF UNSP FEMUR, INIT SNOMED Code(s): 629322066 (2) Acute right hip pain Current Visit: No Status: Acute Code(s): M25.551 - PAIN IN RIGHT HIP S NOMED Code(s): 94037769 (3) Anemia Current Visit: No Status: Acute Code(s): D64.9 - ANEMIA, UNSPECIFIED SNOMED Code(s): 128595148 (4) CAD (coronary artery disease) Current Visit: No Status: Acute Code(s): I25.10 - ATHSCL HEART DISEASE OF [place] CORONARY ARTERY W/O ANG PCTRS SNOMED Code(s): 00021601 (5) Chronic kidney disease (CKD) Current Visit: No Status: Acute Code(s): N18.9 - CHRONIC KIDNEY DISEASE, UNSPECIFIED SNOMED Code(s): 295421931 (6) Diabetes type 2, uncontrolled Current Visit: No Status: Acute Code(s): E11.65 - TYPE 2 DIABETES MELLITUS WITH HYPERGLYCEMIA SNOMED Code(s): 835718150 (7) Fall Current Visit: No Status: Acute Code(s): W19.XXXA - UNSPECIFIED FALL, INITIAL ENCOUNTER SNOMED Code(s): 1463707 (8) HTN (hypertension) Current Visit: No Status: Acute Code(s): I10 - ESSENTIAL (PRIMARY) HYPERTENSION SNOMED Code(s): 50700919 Plan: Plan admit patient with pain control. Orthopedic Consultation and probable pending inpatient physical therapy to assess patient
[2019-10-17] MEDS ORDERED: CYCLOBENZAPRINE 10 MG TAB ONE (23:50)
[2019-10-18 05:53] VITALS: BP 138/71; PULSE 62; RESP 16; TEMP 98
[2019-10-18] MEDS: CYCLOBENZAPRINE 10 MG TAB PO SCH ×2 (06:06→09:02)
[2019-10-18] MEDS: MORPHINE SULFATE 4 MG/ML SYRINGE IV PRN (06:14)
[2019-10-18 07:05] LABS: Glucose,Whole Blood 108 mg/dL (75-99)
[2019-10-18] MEDS: INSULIN ASPART (NovoLOG) 100 UNIT/ML VIAL SQ SCH ×2 (07:59→12:28)
[2019-10-18] MEDS: SODIUM CHLORIDE 0.9% 1,000 ML IV SCH (08:41)
[2019-10-18] MEDS: CRESTOR 40 MG PO SCH (08:42)
[2019-10-18] MEDS: ESCITALOPRAM 20 MG TAB PO SCH (09:01)
[2019-10-18] MEDS: EZETIMIBE 10 MG TAB PO SCH (09:01)
[2019-10-18] MEDS: PANTOPRAZOLE 40 MG TABLET PO SCH (09:01)
[2019-10-18] MEDS: METOPROLOL SUCCINATE (ER) 50 MG TAB.ER.24H PO SCH (09:02)
--- NOTE | 2019-10-18 10:48 | P.DS ---
Providers Date of admission: 10/15/19 08:09 Expected date of discharge: 10/18/19 Attending physician: Jairo Levi Consults: 10/15/19 08:10 Consult Physician Routine Consulting Provider: Juancho Palumbo Consult Reason/Comments: greater trochanter fracture Do you want consulting provider notified?: Yes Primary care physician: Jairo Levi Hospital Course: Final Diagnoses: Nondisplaced right greater trochanteric femur fracture status post fall from bed, conservative management as per orthopedic surgery History of left hip hemiarthroplasty Recent repair of recurrent incisional hernia Chronic intermittent asthma, stable CAD Chronic CHF, systolic dysfunction. Ischemic cardiomyopathy Moderate pulmonary hypertension Chronic kidney disease secondary to hypertensive nephrosclerosis Fibromyalgia Gastroesophageal reflux disease Hypertension Hyperlipidemia PAD Hospital course:This is a 64-year-old female rolled out of bed, sustaining a nondisplaced fracture of the right greater trochanter of the femur. Evaluated by orthopedic surgery with no surgical intervention recommended at this time. Complains of spasms. Denies chest pain, palpitations or shortness of breath. Denies lightheadedness dizziness or focal deficits. Vital signs stable, maintaining O2 sats in the 90s on room air. Creatinine 1.24. 10/17/2019 evaluated by PT with subacute rehab recommended at discharge. Complains of uncontrolled pain, crying. Reports no relief from current regimen. Denies chest pain, palpitations or shortness of breath. Afebrile, normal WBC. Blood sugars controlled. Creatinine improving down to 1.14. Pain better controlled on both Flexeril and [place]. Up to chair with PT this morning, tolerated well. Significant clinical improvement. Patient is being discharged to [facility] subacute rehab. in a stable condition with guarded prognosis. Orthopedics recommends 50% weightbearing with a walker. The impression and plan of care has been dictated as directed. : I performed a history and examination of this patient, discussed the same with the dictator. I agree with the dictator's note ,documented as a scribe. Any additional findings or plans will be noted. Patient Condition at Discharge: Stable Plan - Discharge Summary Discharge Rx Participant: No New Discharge Prescriptions: New Cyclobenzaprine [Flexeril] 10 mg PO Q8HR PRN tab PRN Reason: Muscle Spasm HYDROcodone/APAP 10-325MG [[place] 10-325] 1 each PO Q6H PRN #12 tab PRN Reason: Pain INSULIN LISPRO (HumaLOG) [humaLOG] 0 unit SQ ACHS #1 vial Continue Omeprazole [PriLOSEC] 40 mg PO AC-BRKFST Escitalopram [Lexapro] 20 mg PO DAILY Rosuvastatin Calcium 40 mg PO DAILY Aspirin 81 mg PO DAILY Furosemide [Lasix] 40 mg PO QAM Calcitriol 0.5 mcg PO MOWEFR Potassium Chloride ER [K-Dur 10] 10 meq PO Q48H Metoprolol Succinate (ER) [Toprol XL] 50 mg PO DAILY Furosemide [Lasix] 20 mg PO HS Insulin Aspart (For Pump) [NovoLOG (For Pump)] 0.01 unit SQ-PUMP DIRECTED Ergocalciferol [Vitamin D2 (DRISDOL)] 50,000 unit PO Q28D Ezetimibe [Zetia] 10 mg PO DAILY Discontinued Cyclobenzaprine [Flexeril] 10 mg PO HS traMADol HCL [Ultram] 50 mg PO HS ALPRAZolam [Xanax] 0.25 mg PO TID PRN PRN Reason: Anxiety HYDROcodone/APAP 5-325MG [[place] 5-325] 1 tab PO Q6H PRN PRN Reason: uses during eye injections Discharge Medication List Omeprazole [PriLOSEC] 40 mg PO AC-BRKFST 08/06/14 [History] Escitalopram [Lexapro] 20 mg PO DAILY 09/23/16 [History] Rosuvastatin Calcium 40 mg PO DAILY 10/22/16 [History] Aspirin 81 mg PO DAILY 10/27/16 [Rx] Calcitriol 0.5 mcg PO MOWEFR 03/18/18 [History] Furosemide [Lasix] 40 mg PO QAM 03/18/18 [History] Potassium Chloride ER [K-Dur 10] 10 meq PO Q48H 03/18/18 [History] Metoprolol Succinate (ER) [Toprol XL] 50 mg PO DAILY 09/30/18 [History] Furosemide [Lasix] 20 mg PO HS 01/15/19 [History] Insulin Aspart (For Pump) [NovoLOG (For Pump)] 0.01 unit SQ-PUMP DIRECTED 01/15/19 [History] Ergocalciferol [Vitamin D2 (DRISDOL)] 50,000 unit PO Q28D 04/13/19 [History] Ezetimibe [Zetia] 10 mg PO DAILY 06/15/19 [History] Cyclobenzaprine [Flexeril] 10 mg PO Q8HR PRN tab 10/18/19 [Rx] HYDROcodone/APAP 10-325MG [[place] 10-325] 1 each PO Q6H PRN #12 tab 10/18/19 [Rx] INSULIN LISPRO (HumaLOG) [humaLOG] 0 unit SQ ACHS #1 vial 10/18/19 [Rx] Follow up Appointment(s)/Referral(s): Jairo Levi DO [Primary Care Provider] - 1 Week (After DC from subacute rehab) Juancho Palumbo DO [Doctor of Osteopathic Medicine] - As Needed Activity/Diet/Wound Care/Special Instructions: [facility] Patient does have insulin pump( family willneed to bring in) or use sliding scale Icing and elevation of affected extremity in addition to pain medication CBC, BMP in 3 days Discharge Disposition: TRANSFER TO SNF/ECF
--- NOTE | 2019-10-18 11:18 | P.PN ---
Subjective Progress Note Date: 10/18/19 Principal diagnosis: Nondisplaced right greater trochanteric femur fracture Patient was evaluated today at bedside, she was also evaluated yesterday morning at bedside. Her pain seems to have slightly improved since the initial evaluation. She's been able to ambulate with the help physical therapy to get to the bedside commode. Patient is being discharged to rehab today. Objective - Vital Signs Vital signs: Vital Signs Temp 98.0 F 10/18/19 04:45 Pulse 62 10/18/19 04:45 Resp 16 10/18/19 04:45 BP 138/71 10/18/19 04:45 Pulse Ox 95 10/18/19 04:45 Intake & Output 10/17/19 10/18/19 10/18/19 18:59 06:59 18:59 Intake Total 700 680 240 Balance 700 680 240 Weight 89 kg Intake: Intake, IV Titration 80 Amount Sodium Chloride 0.9% 1, 80 000 ml @ 20 mls/hr IV . Q24H MANDY Rx#:[id number] Oral 700 600 240 Other: Voiding Method Bedside Commode Bedside Commode # Voids 1 0 - Exam Right lower extremity: No open lesions or sores visualized throughout the extremity No significant areas of soft tissue swelling or ecchymosis Logroll maneuver the leg reproduces minimal discomfort, she has minimal discomfort with palpation over the greater trochanter Calf is soft, no tenderness with palpation Sensory exam to light touch throughout the extremities intact, dorsalis pedis pulse is 2+ - Labs CBC & Chem 7: 10/17/19 06:44 10/17/19 06:44 Labs: Abnormal Lab Results - Last 24 Hours (Table) 10/17/19 10/17/19 10/17/19 Range/Units 11:34 17:12 20:11 POC Glucose (mg/dL) 190 H 150 H 138 H (75-99) mg/dL 10/18/19 Range/Units 07:03 POC Glucose (mg/dL) 108 H (75-99) mg/dL Assessment and Plan Assessment: Nondisplaced right greater trochanteric femur fracture Status post fall from bed Multiple medical comorbidities Plan: Recommend conservative management, this to include icing and elevating along with oral medication Recommend 50% weightbearing with walker, physical therapy evaluation Anticipated 2-3 weeks at subacute rehab Plan for follow-up at advanced orthopedics in 2 weeks for recheck and x-ray evaluation Time with Patient: Less than 30
[2019-10-18 11:31] LABS: Glucose,Whole Blood 226 mg/dL (75-99)
[2019-10-18] MEDS: HYDROcodone/APAP 10-325MG 1 EACH TAB PO PRN (12:28)
[2019-10-24] MEDS ORDERED: ERGOCALCIFEROL 50,000 UNIT CAP PO SCH (09:00)
== END 2019-10-18 14:42 | DRG 536 ==
LOC: EC 05:39 → 5NMEDONC 08:09
PROVIDERS: ADMIT Family Medicine; ATTEND Family Medicine
DX: S72.115A Nondisplaced fracture of greater trochanter of left femur, initial encounter for closed fracture (principal); I13.0 Hypertensive heart and chronic kidney disease with heart failure and stage 1 through stage 4 chronic kidney disease, or unspecified chronic kidney disease; I50.22 Chronic systolic (congestive) heart failure; I27.20 Pulmonary hypertension, unspecified; D63.1 Anemia in chronic kidney disease; E11.319 Type 2 diabetes mellitus with unspecified diabetic retinopathy without macular edema; E11.42 Type 2 diabetes mellitus with diabetic polyneuropathy; E11.51 Type 2 diabetes mellitus with diabetic peripheral angiopathy without gangrene; N18.3 Chronic kidney disease, stage 3 (moderate); E11.22 Type 2 diabetes mellitus with diabetic chronic kidney disease; E66.01 Morbid (severe) obesity due to excess calories; E78.5 Hyperlipidemia, unspecified; Z11.59 Encounter for screening for other viral diseases; I25.10 Atherosclerotic heart disease of native coronary artery without angina pectoris; I25.2 Old myocardial infarction; I25.5 Ischemic cardiomyopathy; J45.20 Mild intermittent asthma, uncomplicated; K21.9 Gastro-esophageal reflux disease without esophagitis; M79.7 Fibromyalgia; M85.80 Other specified disorders of bone density and structure, unspecified site; F32.9 Major depressive disorder, single episode, unspecified; F41.9 Anxiety disorder, unspecified; G43.909 Migraine, unspecified, not intractable, without status migrainosus; H35.30 Unspecified macular degeneration; M19.90 Unspecified osteoarthritis, unspecified site; K58.1 Irritable bowel syndrome with constipation; Z68.31 Body mass index [BMI] 31.0-31.9, adult; Z79.4 Long term (current) use of insulin; Z79.82 Long term (current) use of aspirin; Z79.899 Other long term (current) drug therapy; Z96.642 Presence of left artificial hip joint; Z96.41 Presence of insulin pump (external) (internal); Z95.5 Presence of coronary angioplasty implant and graft; Z87.891 Personal history of nicotine dependence; Z95.810 Presence of automatic (implantable) cardiac defibrillator; Z98.84 Bariatric surgery status; Z87.01 Personal history of pneumonia (recurrent); Z87.440 Personal history of urinary (tract) infections; Z96.652 Presence of left artificial knee joint; Z90.49 Acquired absence of other specified parts of digestive tract; Z98.42 Cataract extraction status, left eye; Z98.41 Cataract extraction status, right eye; Z88.5 Allergy status to narcotic agent; Z88.0 Allergy status to penicillin; Z88.8 Allergy status to other drugs, medicaments and biological substances; Z91.048 Other nonmedicinal substance allergy status; Z82.5 Family history of asthma and other chronic lower respiratory diseases; Z83.3 Family history of diabetes mellitus; Z81.1 Family history of alcohol abuse and dependence; W06.XXXA Fall from bed, initial encounter; Y92.9 Unspecified place or not applicable
CPT/HCPCS: 36415; 80048; 80053; 85025; 96361; 96372; 96374; 99285

== ENCOUNTER → 2020-01-03 | Outpatient (CLI) | payer MEDICARE ==
[2020-01-03 14:48] LABS: Appearance,Urine Cloudy (Clear); Bacteria,Urine Many /hpf; Bilirubin,Urine Negative (Negative); Blood,Urine Negative (Negative); Color,Urine Light Yellow; Glucose,Urine (UA) Negative (Negative); Hyaline Casts,Urine 1 /lpf (0-2); Ketones,Urine Negative (Negative); Leukocyte Esterase,Urine Moderate (Negative); Mucus,Urine Rare /hpf; Nitrite,Urine Negative (Negative); PH, Urine 5.5 (5.0-8.0); Protein,Urine Negative (Negative); RBC,Urine 2 /hpf (0-5); Specific Gravity,Urine 1.008 (1.001-1.035); Squamous Epithelial Cell,Urine 5 /hpf (0-4); Urobilinogen,Urine <2.0 mg/dL (<2.0); WBC,Urine 14 /hpf (0-5)
== END | disposition home or self-care (01) ==
LOC: LABWHC1 13:14
PROVIDERS: ATTEND Internal Medicine
DX: N18.3 Chronic kidney disease, stage 3 (moderate) (principal); N39.0 Urinary tract infection, site not specified
CPT/HCPCS: 81001; 87086

== ENCOUNTER → 2020-03-21 | Outpatient (CLI) | payer MEDICARE ==
[2020-03-21 13:12] LABS: HCT 41.8 % (34.0-46.0); HGB 14.3 gm/dL (11.4-16.0); MCH 30.2 pg (25.0-35.0); MCHC 34.1 g/dL (31.0-37.0); MCV 88.7 fL (80.0-100.0); Mean Platelet Volume 7.7; Platelet Count 249 k/uL (150-450); RBC 4.72 m/uL (3.80-5.40); RDW 12.6 % (11.5-15.5); WBC 9.5 k/uL (3.8-10.6)
[2020-03-21 13:34] LABS: Appearance,Urine Cloudy (Clear); Bacteria,Urine Many /hpf; Bilirubin,Urine Negative (Negative); Blood,Urine Negative (Negative); Calcium Oxalate Crystals,Urine Many /hpf; Color,Urine Yellow; Glucose,Urine (UA) Negative (Negative); Hyaline Casts,Urine 2 /lpf (0-2); Ketones,Urine Negative (Negative); Leukocyte Esterase,Urine Large (Negative); Mucus,Urine Occasional /hpf; Nitrite,Urine Negative (Negative); PH, Urine 5.5 (5.0-8.0); Protein,Urine Negative (Negative); RBC,Urine 7 /hpf (0-5); Specific Gravity,Urine 1.011 (1.001-1.035); Squamous Epithelial Cell,Urine 31 /hpf (0-4); Urobilinogen,Urine <2.0 mg/dL (<2.0); WBC,Urine 77 /hpf (0-5)
[2020-03-21 21:10] LABS: Ferritin 35.1 ng/mL (10.0-291.0)
[2020-03-21 21:31] LABS: % Iron Saturation 26.03 (12.00-45.00); ALT <8 U/L (8-44); AST 19 U/L (13-35); African American GFR (CKD) 41.6 (60.0-200.0); Albumin/Globulin Ratio 1.44 (1.60-3.17); Alkaline Phosphatase 74 U/L (41-126); BUN/Creat Ratio 16.67 Ratio (12.00-20.00); Calcium 9.3 mg/dL (8.7-10.3); Carbon Dioxide 30.6 mmol/L (21.6-31.8); Chloride 100 mmol/L (96-109); Globulin 2.5 g/dL (1.6-3.3); Glucose 111 mg/dL (70-110); Iron 82 ug/dL (50-170); Magnesium 2.2 mg/dL (1.5-2.4); Non-African American GFR(CKD) 35.9 (60.0-200.0); Phosphorus 4.9 mg/dL (2.4-5.1); Potassium 3.5 mmol/L (3.5-5.5); Sodium 141 mmol/L (135-145); Total Bilirubin 0.7 mg/dL (0.2-1.2); Total Iron Binding Capacity 315 ug/dL (228-460); Total Protein 6.1 g/dL (6.2-8.2); Uric Acid 7.5 mg/dL (2.9-7.7)
== END | disposition home or self-care (01) ==
LOC: LABWHC1 11:56
PROVIDERS: ATTEND Internal Medicine
DX: N18.30 Chronic kidney disease, stage 3 unspecified (principal)
CPT/HCPCS: 36415; 80053; 81001; 82306; 82728; 83540; 83550; 83735; 83970; 84100; 84550; 85027

== ENCOUNTER → 2020-04-18 | Day surgery (SDC) | payer MEDICARE ==
[~2020-04-18] MED LIST changes: +HYDROcodone/APAP 5-325MG 1 EACH TAB PO PRN; -LACTATED RINGERS 1,000 ML IV SCH; -LIDOCAINE 1% 20 ML VIAL (10MG/ML) FOR IV START INTRADERMA PRN; +PREMYELOGRAM MEDICATION REVIEW 1 EACH MISC PO ONE; +diazePAM 5 MG TAB PO STA
[2020-04-18 08:41] LABS: Glucose,Whole Blood 76 mg/dL (75-99)
[2020-04-18 09:00] VITALS: TEMP 98.7
[2020-04-18 12:12] LABS: Glucose,Whole Blood 90 mg/dL (75-99)
--- NOTE | 2020-04-18 12:57 | FL ---
PROCEDURE: Fluoroscopic-guided lumbar myelogram injection DATE: 04/18/2020 CLINICAL HISTORY: 65-year-old female M54.6, thoracic spine pain. An 5 4.5, low back pain. COMPLICATIONS: None Fluoroscopy time: 55 Total images: 8 SEDATION: Administered by nursing personnel The patient and the patient's vital signs were [facility]. TECHNIQUE: The procedure and potential risks were explained to patient and an informed consent was obtained with teach back. Site and side was verified. A time out was performed. The patient was placed prone on the fluoroscopy table and the L3-L4 level was localized and the skin was marked and was prepped and draped in the usual sterile fashion. Lidocaine was used for local anesthesia. Utilizing fluoroscopic guidance a 22-gauge 5 inch spinal nee dle was placed through the skin and into the subarachnoid space. After visualizing clear CSF, 10 mL Isovue-300 contrast was administered into the thecal sac. The table was manipulated so that contrast would extend up along the thoracic spine. T11 vertebroplas ty changes demonstrated. There was initial hang-up of contrast at this level. The patient tolerated the procedure well. CT to be performed after a 30 minute wait to allow for CSF circulation. The estimated blood loss was minimal. The patient's condition was unchanged following the procedure. IMPRESSION: Successful myelogram injection at the L3-L4 level for CT.
--- NOTE | 2020-04-18 13:22 | CT ---
EXAMINATION TYPE: CT thoracic and lumbar myelogram DATE OF EXAM: 04/18/2020 COMPARISON: None HISTORY: 65-year-old female M54.6, M54.5, POST MYELOGRAM TECHNIQUE: Contiguous axial scanning of the thoracic and lumbar spine performed after intrathecal adm inistration of contrast material. Please refer to myelogram injection report of the same day for furt her details. CT DLP: 1878.7 mGycm Automated exposure control for dose reduction was used. FINDINGS: THORACIC SPINE: 12 rib-bearing thoracic vertebral bodies. There is T11 vertebroplasty change. Minimal overall height loss at this level. There is mild retropul mckayla impressing on the ventral spinal canal along with bulging disc at T10-T11. This causes mild narr owing of the spinal canal and slight flattening of the ventral cord at this level. Moderate degenerative disc disease T7-T8 and mild at multiple additional levels with posterior disc b ulges in the mid and lower thoracic spine. No large focal disc herniation or significant spinal canal stenosis seen at these upper levels. Mild facet arthropathy such as at T7-T8 on the left and at T8-T9 and T4-T5 on the right. Mild left ne uroforaminal stenosis at T7-T8. No significant neural foraminal stenosis is seen. Post surgical change at the GE junction, possible hiatal hernia repair. A small recurrent hiatal camilla ia is suspected. LUMBAR SPINE: Only 4 lumbar type vertebral bodies are present. Vertebral body heights are preserved and alignment is maintained. Hypertrophic facet arthropathy lower lumbar spine. Mild disc bulges at L4-L5 and L5-S1 Round 5 mm filling defect within the right side of the thecal sac at the L3 level. No large focal disc herniation or significant spinal canal stenosis. On the right, changes result in mild neural foraminal stenosis at L5-S1. On the left, changes result in mild neuroforaminal stenosis at L4-L5 and L5-S1. Conus medullaris is at the L1 level. IMPRESSION: THORACIC SPINE: 1. Mild degenerative disc disease mid to lower thoracic spine, more moderate at T7-T8. Posterior disc bulges at multiple levels in the mid and lower thoracic spine. No large focal disc herniation. 2. Prior T11 vertebroplasty. Posterior disc bulge and mild retropulsion at the T10-T11 level contribu fabian to a mild spinal canal stenosis abutting and slightly flattening the ventral cord at this level. No shane cord compression or significant spinal canal stenosis. 3. Additional scattered mild facet arthropathy. Mild left neuroforaminal stenosis at T7-T8. LUMBAR SPINE: 4. Note that there is congenital variation with only 4 lumbar type vertebral bodies. This report keep s count as 5 vertebral bodies from the lumbosacral junction in order to avoid confusion when this ene iation is not known. 5. Mild disc bulges at L4-L5 and L5-S1. Facet arthropathy lower lumbar spine. Variable mild neurofora jerrell stenoses lower lumbar spine, left greater than right. No spinal canal stenosis. 6. A 5 mm round filling defect within the right side of the thecal sac at the L3 level. A small neuro fibroma or schwannoma is suspected. Consider a 6-12 month follow-up exam.
[2020-04-18 14:55] VITALS: RESP 16
[2020-04-18 19:53] VITALS: BP 134/56; PULSE 64
== END ==
LOC: RADPROMAIN 07:53
PROVIDERS: ATTEND Orthopaedic Surgery
DX: M51.14 Intervertebral disc disorders with radiculopathy, thoracic region (principal); M47.24 Other spondylosis with radiculopathy, thoracic region; M48.04 Spinal stenosis, thoracic region; M48.8X7 Other specified spondylopathies, lumbosacral region; M51.17 Intervertebral disc disorders with radiculopathy, lumbosacral region; M48.061 Spinal stenosis, lumbar region without neurogenic claudication; R93.7 Abnormal findings on diagnostic imaging of other parts of musculoskeletal system; J45.909 Unspecified asthma, uncomplicated; M79.7 Fibromyalgia; I73.9 Peripheral vascular disease, unspecified; I12.9 Hypertensive chronic kidney disease with stage 1 through stage 4 chronic kidney disease, or unspecified chronic kidney disease; E11.22 Type 2 diabetes mellitus with diabetic chronic kidney disease; N18.30 Chronic kidney disease, stage 3 unspecified; I48.91 Unspecified atrial fibrillation; Z88.0 Allergy status to penicillin; Z88.5 Allergy status to narcotic agent; Z98.890 Other specified postprocedural states; Z90.49 Acquired absence of other specified parts of digestive tract; Z87.19 Personal history of other diseases of the digestive system; Z90.89 Acquired absence of other organs; Z98.84 Bariatric surgery status; Z89.022 Acquired absence of left finger(s); Z95.810 Presence of automatic (implantable) cardiac defibrillator; Z79.899 Other long term (current) drug therapy; Z79.82 Long term (current) use of aspirin; Z79.891 Long term (current) use of opiate analgesic; Z79.1 Long term (current) use of non-steroidal anti-inflammatories (NSAID); Z87.81 Personal history of (healed) traumatic fracture; Z80.1 Family history of malignant neoplasm of trachea, bronchus and lung
CPT/HCPCS: 62305; 72129; 72132; J2001; Q9967

== ENCOUNTER 2020-08-16 23:59 | Emergency (ER) | payer MEDICARE ==
--- NOTE | 2020-08-17 01:51 | XR ---
EXAM: XR Left Knee, 3 Views CLINICAL HISTORY: History of fall. Left knee injury. TECHNIQUE: Three views of the left knee. COMPARISON: 10/22/2016. FINDINGS: Bones/joints: There is osteopenia. No significant joint effusion. Mild valgus angulation of the left knee joint. No acute fracture, dislocation, or destructive process is noted. Soft tissues: Soft tissues are within normal limits. Vasculature: Atherosclerotic disease. IMPRESSION: 1. Osteopenia. 2. Atherosclerotic disease. 3. Valgus angulation of the left knee joint. 4. Magnetic resonance imaging of the left knee joint is suggested for follow-up as deemed clinically necessary.
--- NOTE | 2020-08-17 01:52 | XR ---
EXAM: XR Right Humerus, 2 or More Views CLINICAL HISTORY: History of fall. Right arm pain. Injury. TECHNIQUE: Frontal and lateral views of the right humerus. COMPARISON: No previous studies. FINDINGS: Bones/joints: Osteopenia. Moderate osteoarthritic changes about the right shoulder joint. No acute fracture, dislocation, or destructive process. Scapula is unremarkable. Soft tissues: Soft tissues are within normal limits. Vasculature: Atherosclerotic disease. IMPRESSION: 1. Osteopenia. 2. No acute fracture, dislocation, or destructive process. 3. Atherosclerotic disease.
--- NOTE | 2020-08-17 02:23 | XR ---
EXAM: XR Right Ribs and AP Chest, 3 or More Views CLINICAL HISTORY: : Fall/injury TECHNIQUE: Frontal and oblique views of the right ribs and frontal view of the chest. COMPARISON: No relevant prior studies available. FINDINGS: Lungs: Unremarkable. No consolidation. Pleural space: Unremarkable. No pneumothorax. Heart: Unremarkable. No cardiomegaly. Mediastinum: Unremarkable. Bones/joints: Previous kyphoplasty in the T12 vertebral body. No acute fracture. Tubes, lines and devices: Implanted cardiac pacer. IMPRESSION: No acute findings in the chest or right ribs.
[2020-08-17] MEDS ORDERED: LIDOCAINE 5% PATCH TOPICAL STA (03:02)
[2020-08-17] MEDS ORDERED: ONDANSETRON 4 MG/2 ML VIAL IVP STA (03:08)
[2020-08-17] MEDS ORDERED: MORPHINE SULFATE 4 MG/ML SYRINGE IVP STA (03:08)
--- NOTE | 2020-08-17 03:11 | ED ---
General Adult HPI - General Chief complaint: Fall Stated complaint: Fall Time Seen by Provider: 08/17/20 00:40 Source: patient Mode of arrival: EMS Limitations: no limitations - History of Present Illness Initial comments: 65-year-old female patient presents to the emergency department today for evaluation of right upper arm pain, right rib pain, and left knee pain after experiencing a fall out of bed this morning. Patient states around 0900 this morningshe was reaching for something and fell from bed. Denies hitting her head or losing consciousness. States she has been having pain to the right ribs right upper arm, and left knee since. Patient is wheelchair-bound has a history of lupus so does not bear weight. States that the area over her right bicep was sore. No radiating pain down the arm. No numbness or tingling. States that she has been having pain to the right lateral ribs. Pain increases with deep breathing and movement. Denies taking any medication for her symptoms at home. She denies any use of blood thinners. Patient denies any headache, neck pain, back pain, chest pain, shortness of breath, dizziness, weakness, abdominal pain, nausea, vomiting, or difficulties with bowel movements or urination. - Related Data Home Medications Medication Instructions Recorded Confirmed Omeprazole [PriLOSEC] 40 mg PO AC-BRKFST 08/06/14 04/18/20 Rosuvastatin Calcium 40 mg PO DAILY 10/22/16 04/18/20 Furosemide [Lasix] 40 mg PO QAM 03/18/18 04/18/20 Potassium Chloride ER [K-Dur 10] 10 meq PO Q48H 03/18/18 04/18/20 Metoprolol Succinate (ER) [Toprol 50 mg PO DAILY 09/30/18 04/18/20 XL] Furosemide [Lasix] 20 mg PO HS 01/15/19 04/18/20 Insulin Aspart (For Pump) [NovoLOG 0.01 unit SQ-PUMP DIRECTED 01/15/19 04/18/20 (For Pump)] Ergocalciferol [Vitamin D2 50,000 unit PO Q28D 04/13/19 04/18/20 (DRISDOL)] Ezetimibe [Zetia] 10 mg PO DAILY 06/15/19 04/18/20 ALPRAZolam [Xanax] 0.25 mg PO HS 03/21/20 04/18/20 Cannabidiol (Cbd) [Epidiolex] 25 mg PO DIRECTED PRN 03/21/20 04/18/20 Ferrous Sulfate [Feosol] 325 mg PO DAILY 03/21/20 04/18/20 calcitrioL [Rocaltrol] 0.5 mcg PO DIRECTED 03/21/20 04/18/20 traMADol HCL [Ultram] 50 mg PO Q4HR PRN 03/21/20 04/18/20 Cyclobenzaprine [Flexeril] 10 mg PO HS 03/24/20 04/18/20 Escitalopram [Lexapro] 20 mg PO DAILY 03/24/20 04/18/20 Tolterodine Tartrate [Tolterodine 2 mg PO DAILY 03/24/20 04/18/20 Tartrate ER] Previous Rx's Medication Instructions Recorded Aspirin 81 mg PO DAILY 10/27/16 HYDROcodone/APAP 5-325MG [[place] 1 tab PO Q6HR PRN 3 Days #12 tab 08/17/20 5-325] Allergies Allergy/AdvReac Type Severity Reaction Status Date / Time adhesive tape Allergy Rash/Hives Verified 03/24/20 13:13 Penicillins Allergy Rash/Hives Verified 03/24/20 13:13 atorvastatin AdvReac Myalgia Verified 03/24/20 13:13 meperidine HCl [From Demerol] AdvReac Hallucinati Verified 03/24/20 13:13 ons Review of Systems ROS Statement: Those systems with pertinent positive or pertinent negative responses have been documented in the HPI. ROS Other: All systems not noted in ROS Statement are negative. Past Medical History Past Medical History: Asthma, Coronary Artery Disease (CAD), Chest Pain / Angina, Heart Failure, Diabetes Mellitus, Eye Disorder, Fibromyalgia, GERD/Reflux, Hyperlipidemia, Hypertension, Myocardial Infarction (MA), Osteoarthritis (OA), Pneumonia, Renal Disease, Syncope, Vascular Disorder Additional Past Medical History / Comment(s): IDDM type II with insulin pump, neuropathy bilateral feet/legs, bilateral eye macular degeneration/diabetic retinopathy, CKD stage III, UTIs with one recently tx with antibiotic, bronchitis, IBS, constipation with last BM 10/14/19, DJD, osteopenia, L hip fracture with surgery, T12 compression fx with surgery, PAD with past bilateral foot wounds/currently has 2 small black spots on R great toe and L 2nd toe, vertigo, migraines, light headed with activity, bruises easily. Last Myocardial Infarction Date:: 02/12/2016 History of Any Multi-Drug Resistant Organisms: None Reported Past Surgical History: Adenoidectomy, AICD, Bariatric Surgery, Breast Surgery, Cholecystectomy, Heart Catheterization, Heart Catheterization With Stent, Hernia Repair, Joint Replacement, Orthopedic Surgery, Tonsillectomy Additional Past Surgical History / Comment(s): PCI/stent, AICD, lap band with removal/gastric sleeve, EGDs, colonoscopies, hiatal hernia surgery, multiple incisional hernia repairs/mesh, bilateral shoulder manipulation, total L hip arthroplasty, L little finger amputation, L elbow staph infection with surgery, T12 kyphoplasty/biopsy, R anterior PTBA with subsequent hematoma, L fempop arthrectomy/PTBA/stent, angiograms. bilateral breast benign biopsies, D&C. Past Anesthesia/Blood Transfusion Reactions: Postoperative Nausea & Vomiting (PONV) Additional Past Anesthesia/Blood Transfusion Reaction / Comment(s): Past blood transfusion 2016-no reaction. Date of Last Stent Placement:: 02/2016 Type of Cardiac Device: AICD Device Placement Date:: Past Psychological History: Anxiety, Depression Smoking Status: Former smoker Past Alcohol Use History: None Reported Past Drug Use History: None Reported - Past Family History Father Family Medical History: Diabetes Mellitus Additional Family Medical History / Comment(s): Alcoholism. Mother Family Medical History: COPD, Diabetes Mellitus, Deep Vein Thrombosis (DVT) Additional Family Medical History / Comment(s): . General Exam Limitations: no limitations General appearance: alert, in no apparent distress, other (This is a well developed, well nourished adult female patient in no acute distress. ) Eye exam: Present: normal appearance, PERRL, EOMI. Absent: scleral icterus, conjunctival injection, periorbital swelling ENT exam: Present: normal exam, normal oropharynx, mucous membranes moist Respiratory exam: Present: normal lung sounds bilaterally, chest wall tenderness (right lateral ribs). Absent: respiratory distress, wheezes, rales, rhonchi, stridor Cardiovascular Exam: Present: regular rate, normal rhythm, normal heart sounds. Absent: systolic murmur, diastolic murmur, rubs, gallop, clicks GI/Abdominal exam: Present: soft, normal bowel sounds. Absent: distended, tenderness, guarding, rebound, rigid Extremities exam: Present: full ROM, tenderness (left anterior knee. ), normal capillary refill, other (ecchymosis noted, no swelling. Skin is otherwise pink, warm, dry. Cap refill less than 3 seconds. Soft tissue swelling and tenderness noted over the right bicep region.). Absent: pedal edema, joint swelling, calf tenderness Neurological exam: Present: alert, oriented X3, CN II-XII intact Psychiatric exam: Present: normal affect, normal mood Skin exam: Present: warm, dry, intact, normal color. Absent: rash Course Vital Signs 08/17/20 08/17/20 00:01 03:34 Temperature 98.6 F 98.0 F Pulse Rate 66 64 Respiratory 16 18 Rate Blood Pressure 146/71 127/61 O2 Sat by Pulse 93 L 96 Oximetry Medical Decision Making - Medical Decision Making 65-year-old female patient presents to the emergency department today for evaluation of right rib pain, right upper arm pain, and left knee pain after experiencing a fall this morning. Physical examination did reveal tenderness over the right bicep, left anterior knee, and over the right lateral ribs. Chest x-ray with right rib series, right humerus, and left knee x-rays were obtained and were negative for any acute fractures. Patient was given incentive spirometer and Lidoderm patch for probable rib contusion versus occult hairline fracture. We did discuss coughing and deep breathing exercises to prevent pneumonia. She is given pain medication for symptom relief. She is instructed to follow-up with her primary care physician for recheck in 1-2 days. She is instructed have repeat x-rays performed in 7-10 days of her pain symptoms persist. Return parameters were discussed in detail. She verbalizes understanding and agrees with this plan. Case discussed with my attending Dr. Quintero. - Radiology Data Radiology results: report reviewed, image reviewed Disposition Clinical Impression: Fall, Contusion of rib on right side, Contusion of left knee, Contusion of right arm Disposition: HOME SELF-CARE Condition: Good Instructions (If sedation given, give patient instructions): Contusion in Adults (ED), Rib Contusion (ED) Additional Instructions: Follow-up through primary care physician for recheck on Tuesday. Use medications as needed for pain, do not take the [place] and tramadol together. Return to the emergency department for any new, worsening, or concerning symptoms. Prescriptions: HYDROcodone/APAP 5-325MG [[place] 5-325] 1 tab PO Q6HR PRN 3 Days #12 tab PRN Reason: Pain Is patient prescribed a controlled substance at d/c from ED?: No Referrals: Jairo Levi DO [Primary Care Provider] - 1-2 days Time of Disposition: 03:10
[2020-08-17 03:36] VITALS: BP 127/61; PULSE 64; RESP 18; TEMP 98
== END 2020-08-17 03:37 | disposition home or self-care (01) ==
LOC: EC 23:59
DX: S80.02XA Contusion of left knee, initial encounter (principal); S40.021A Contusion of right upper arm, initial encounter; S20.211A Contusion of right front wall of thorax, initial encounter; W06.XXXA Fall from bed, initial encounter
CPT/HCPCS: 71101; 73060; 73562; 99284; 96374; 96375; J2270; J2405

== ENCOUNTER 2021-10-02 12:45 | Emergency (ER) | payer MEDICARE ==
[2021-10-02] MEDS ORDERED: methocarbamoL 750 MG TAB PO STA (13:24)
--- NOTE | 2021-10-02 14:03 | ED ---
General Adult HPI - General Chief complaint: Fall Stated complaint: Fall Time Seen by Provider: 10/02/21 13:15 Source: patient, EMS, RN notes reviewed, old records reviewed Mode of arrival: EMS Limitations: no limitations - History of Present Illness Initial comments: Patient is a 66-year-old female who presents emergency Department following a fall. Patient states she has been having muscle spasms in her back and was seen her orthopedic doctor at the office. States that she was getting up from a chair, felt a spasm in her back, which caused her to fall onto her bilateral knees. Currently complaining of bilateral knee pain. Denies hitting her head. Patient is on blood thinners but denies loss conscious. Denies any numbness or weakness. Denies any saddle anesthesias, abdominal pain, nausea, vomiting. Has bilateral hip replacements. No other acute complaints at this time. Primary complaint is left knee pain. Has normal mobility of the left knee, however it is painful with flexion and extension. Presents for further evaluation at this time. - Related Data Home Medications Medication Instructions Recorded Confirmed Omeprazole [PriLOSEC] 40 mg PO AC-BRKFST 08/06/14 10/02/21 Rosuvastatin Calcium 40 mg PO DAILY 10/22/16 10/02/21 Furosemide [Lasix] 40 mg PO DAILY 03/18/18 10/02/21 Potassium Chloride ER [K-Dur 10] 10 meq PO DAILY 03/18/18 10/02/21 Metoprolol Succinate (ER) [Toprol 50 mg PO DAILY 09/30/18 10/02/21 XL] Furosemide [Lasix] 20 mg PO HS 01/15/19 10/02/21 Ergocalciferol [Vitamin D2 50,000 unit PO Q28D 04/13/19 10/02/21 (DRISDOL)] Ezetimibe [Zetia] 10 mg PO DAILY 06/15/19 10/02/21 ALPRAZolam [Xanax] 0.25 mg PO HS 03/21/20 10/02/21 Ferrous Sulfate [Feosol] 325 mg PO DAILY 03/21/20 10/02/21 calcitrioL [Rocaltrol] 0.5 mcg PO DAILY 03/21/20 10/02/21 Cyclobenzaprine [Flexeril] 10 mg PO HS 03/24/20 10/02/21 Escitalopram [Lexapro] 20 mg PO DAILY 03/24/20 10/02/21 ALPRAZolam [Xanax] 0.25 mg PO BID PRN 10/02/21 10/02/21 Clopidogrel [Plavix] 75 mg PO DAILY 10/02/21 10/02/21 INSULIN LISPRO (HumaLOG) [humaLOG] 0.01 unit SQ-PUMP CONTINUOUS 10/02/21 10/02/21 Allergies Allergy/AdvReac Type Severity Reaction Status Date / Time adhesive tape Allergy Rash/Hives Verified 10/02/21 16:12 Penicillins Allergy Rash/Hives Verified 10/02/21 16:12 atorvastatin AdvReac Myalgia Verified 10/02/21 16:12 meperidine HCl [From Demerol] AdvReac Hallucinati Verified 10/02/21 16:12 ons Review of Systems ROS Statement: Those systems with pertinent positive or pertinent negative responses have been documented in the HPI. Review of Systems: CONST: Denies fever EYES: Denies blurry vision ENT: Denies nasal congestion C/V: Denies Chest pain RESP: Denies shortness of breath GI: Denies abdominal pain : Denies dysuria SKIN: Denies rash. MSK: Endorses knee pain NEURO: Denies headache ROS Other: All systems not noted in ROS Statement are negative. Past Medical History Past Medical History: Asthma, Coronary Artery Disease (CAD), Chest Pain / Angina, Heart Failure, Diabetes Mellitus, Eye Disorder, Fibromyalgia, GERD/Reflux, Hyperlipidemia, Hypertension, Myocardial Infarction ([place]), Osteoarthritis (OA), Pneumonia, Renal Disease, Syncope, Vascular Disorder Additional Past Medical History / Comment(s): IDDM type II with insulin pump, neuropathy bilateral feet/legs, bilateral eye macular degeneration/diabetic retinopathy, CKD stage III, UTIs with one recently tx with antibiotic, bronchitis, IBS, constipation with last BM 10/14/19, DJD, osteopenia, L hip fracture with surgery, T12 compression fx with surgery, PAD with past bilateral foot wounds/currently has 2 small black spots on R great toe and L 2nd toe, vertigo, migraines, light headed with activity, bruises easily. Last Myocardial Infarction Date:: 02/12/2016 History of Any Multi-Drug Resistant Organisms: None Reported Past Surgical History: Adenoidectomy, AICD, Bariatric Surgery, Breast Surgery, Cholecystectomy, Heart Catheterization, Heart Catheterization With Stent, Hernia Repair, Joint Replacement, Orthopedic Surgery, Tonsillectomy Additional Past Surgical History / Comment(s): PCI/stent, AICD, lap band with removal/gastric sleeve, EGDs, colonoscopies, hiatal hernia surgery, multiple incisional hernia repairs/mesh, bilateral shoulder manipulation, total L hip arthroplasty, L little finger amputation, L elbow staph infection with surgery, T12 kyphoplasty/biopsy, R anterior PTBA with subsequent hematoma, L fempop arthrectomy/PTBA/stent, angiograms. bilateral breast benign biopsies, D&C. Past Anesthesia/Blood Transfusion Reactions: Postoperative Nausea & Vomiting (PONV) Additional Past Anesthesia/Blood Transfusion Reaction / Comment(s): Past blood transfusion 2015-no reaction. Date of Last Stent Placement:: 02/2016 Type of Cardiac Device: AICD Device Placement Date:: Past Psychological History: Anxiety, Depression Smoking Status: Former smoker Past Alcohol Use History: None Reported Past Drug Use History: None Reported - Past Family History Father Family Medical History: Diabetes Mellitus Additional Family Medical History / Comment(s): Alcoholism. Mother Family Medical History: COPD, Diabetes Mellitus, Deep Vein Thrombosis (DVT) Additional Family Medical History / Comment(s): . General Exam - General Exam Comments Initial Comments: General: Appears in no acute distress. HEAD: Normal with no signs of head trauma. EYES: PERRLA, EOMI, conjunctiva normal, no discharge. Peoples are 3 mm and equal bilaterally. ENT: Hearing grossly intact, normal oropharynx. RESPIRATORY: Clear breath sounds bilaterally. No wheezes, rales, or rhonchi. C/V: Regular rate and rhythm. S1 and S2 auscultated, no edema, peripheral pulses 2+ and intact throughout ABD: Abd is soft, nontender, nondistended EXT: Normal range of motion of bilateral knees. No obvious deformities. Tenderness to palpation over the anterior aspect of the left knee. Kim's test negative. Also tenderness to palpation over the anterior aspect of the right knee. Kim's test negative. Patient has mild tenderness to palpation of the proximal left tib-fib as well as the distal left femur. SKIN: No rashes or lesions observed on exposed skin. NEURO: Alert and oriented 4. No focal sensory strength deficits. Limitations: no limitations Course Vital Signs 10/02/21 10/02/21 12:49 16:32 Temperature 97.8 F 98.1 F Pulse Rate 61 57 L Respiratory 16 20 Rate Blood Pressure 113/68 167/71 O2 Sat by Pulse 99 98 Oximetry Medical Decision Making - Medical Decision Making Based on the patient's presentation and physical exam, I'm concerned for possible bleach medic into the patient's legs. We will obtain plain film x- rays. She declines analgesic medications except for Robaxin at this time. She was in agreement this plan. I do not believe that further laboratory studies or imaging are required at this time. X-rays revealed no signs of acute fracture or subluxation. Reevaluation patient's pain is improved. I explained that she may have suffered a bone bruise or muscle skeletal injury not seen on x-ray. Recommended icing, relaxing. Weight-bear as tolerated. Can follow-up with orthopedic surgery as needed. She was in agreement this plan. Patient will be discharged home at this time. I will provide the patient with a prescription for Robaxin. I instructed the patient to follow up with their PCP in the next 3 days. . I explained that the patient should return to the emergency department if they experience any worsening symptoms. Strict return precautions were discussed with the patient. The patient expressed understanding of these instructions. I answered all questions that the patient had. The patient was discharged home in good condition with their prescriptions and follow up information. Disposition Clinical Impression: Fall, Knee pain Disposition: HOME SELF-CARE Condition: Good Instructions (If sedation given, give patient instructions): Fall Prevention (ED) Is patient prescribed a controlled substance at d/c from ED?: No Referrals: Jairo Levi DO [Primary Care Provider] - 1-2 days Time of Disposition: 16:00
--- NOTE | 2021-10-02 15:27 | XR ---
Left leg, bilateral knees, left femur, AP pelvis HISTORY: Pain Single frontal view of the pelvis, frontal lateral views of the left femur on 4 images, bilateral kne es with 3 images of each knee, frontal lateral views of the left leg on 4 images submitted for correl ation to prior left knee dated 08/17/2020 Bone mineralization is reduced which could limit sensitivity. There is a stent present within the sen cified left leg vasculature. No fracture or dislocation is present of the left leg, femur, bilateral knee is, there is overlying artifact present at the level the knees. Probable knee joint effusions ri ght greater than left. Enthesophyte present at the insertion of the quadriceps tendon. Dense vascular calcifications are noted incidentally. Patient is status post left hip arthroplasty. Sacroiliac joints appear intact. Vascular calcification s also noted within the pelvis. IMPRESSION: No evident fracture or dislocation of the pelvis, left femur, bilateral knees, or left le g
[2021-10-02 16:34] VITALS: BP 167/71; PULSE 57; RESP 20; TEMP 98.1
== END 2021-10-02 16:32 | disposition home or self-care (01) ==
LOC: EC 12:45
DX: M25.562 Pain in left knee (principal); M25.561 Pain in right knee; J45.909 Unspecified asthma, uncomplicated; M19.90 Unspecified osteoarthritis, unspecified site; I25.10 Atherosclerotic heart disease of native coronary artery without angina pectoris; I13.0 Hypertensive heart and chronic kidney disease with heart failure and stage 1 through stage 4 chronic kidney disease, or unspecified chronic kidney disease; E11.22 Type 2 diabetes mellitus with diabetic chronic kidney disease; E11.319 Type 2 diabetes mellitus with unspecified diabetic retinopathy without macular edema; I50.9 Heart failure, unspecified; E78.5 Hyperlipidemia, unspecified; F32.A Depression, unspecified; F41.9 Anxiety disorder, unspecified; I25.2 Old myocardial infarction; K21.9 Gastro-esophageal reflux disease without esophagitis; E11.40 Type 2 diabetes mellitus with diabetic neuropathy, unspecified; N18.30 Chronic kidney disease, stage 3 unspecified; Z79.4 Long term (current) use of insulin; W07.XXXA Fall from chair, initial encounter; Z87.39 Personal history of other diseases of the musculoskeletal system and connective tissue; G43.909 Migraine, unspecified, not intractable, without status migrainosus; Z87.891 Personal history of nicotine dependence; Z79.02 Long term (current) use of antithrombotics/antiplatelets; Z79.01 Long term (current) use of anticoagulants; Z79.899 Other long term (current) drug therapy; Z88.0 Allergy status to penicillin; Z88.5 Allergy status to narcotic agent; Z88.8 Allergy status to other drugs, medicaments and biological substances
CPT/HCPCS: 72170; 99284

== ENCOUNTER → 2021-11-30 | Outpatient (CLI) | payer MEDICARE ==
--- NOTE | 2021-11-30 15:44 | US ---
EXAMINATION TYPE: US kidneys/renal and bladder DATE OF EXAM: 11/30/2021 COMPARISON: None CLINICAL HISTORY: N18.4 CKD Stage 4. abnormal labs. EXAM MEASUREMENTS: Right Kidney: 10.0 x 4.4 x 4.4 cm Left Kidney: 6.8 x 4.9 x 5.6 cm Post Void Residual Volume: 37.3 mL Right Kidney: Scattered punctate echogenicity without hydronephrosis; Possible multiple nonshadowing echogenic foci Left Kidney: limited visualization due to bowel gas, no prominent masses or lesions seen Bladder: distended, anechoic Bilateral Jets seen Normal Post Void Residual: Yes IMPRESSION: 1. Possible nonobstructing punctate renal stones right kidney. 2. Limited evaluation of the left kidney due to bowel gas.
== END | disposition home or self-care (01) ==
LOC: RADUSWWP 12:06
PROVIDERS: ATTEND Internal Medicine Nephrology
DX: N18.4 Chronic kidney disease, stage 4 (severe) (principal)
CPT/HCPCS: 76770

== ENCOUNTER 2022-03-23 13:34 | Emergency (ER) | payer MEDICARE ==
--- NOTE | 2022-03-23 13:43 | ED ---
General Adult HPI - General Stated complaint: fall, knee pain Time Seen by Provider: 03/23/22 13:35 Source: patient, RN notes reviewed, old records reviewed - History of Present Illness Initial comments: This is a 67-year-old female presents emergency Department complaining of right knee pain. Patient states she went to get up off the toilet and felt a pop in the knee and fell back onto the toilet. Patient states since then she's been unable to bear weight. Patient states anywhere around the knee that you touch hurts. Patient denies any upper leg or lower leg pain. Patient has any ankle pain patient denies any hip pain. Patient denies any other issues at this time. - Related Data Home Medications Medication Instructions Recorded Confirmed Omeprazole [PriLOSEC] 40 mg PO AC-BRKFST 08/06/14 10/02/21 Rosuvastatin Calcium 40 mg PO DAILY 10/22/16 10/02/21 Furosemide [Lasix] 40 mg PO DAILY 03/18/18 10/02/21 Potassium Chloride ER [K-Dur 10] 10 meq PO DAILY 03/18/18 10/02/21 Metoprolol Succinate (ER) [Toprol 50 mg PO DAILY 09/30/18 10/02/21 XL] Furosemide [Lasix] 20 mg PO HS 01/15/19 10/02/21 Ergocalciferol [Vitamin D2 50,000 unit PO Q28D 04/13/19 10/02/21 (DRISDOL)] Ezetimibe [Zetia] 10 mg PO DAILY 06/15/19 10/02/21 ALPRAZolam [Xanax] 0.25 mg PO HS 03/21/20 10/02/21 Ferrous Sulfate [Feosol] 325 mg PO DAILY 03/21/20 10/02/21 calcitrioL [Rocaltrol] 0.5 mcg PO DAILY 03/21/20 10/02/21 Cyclobenzaprine [Flexeril] 10 mg PO HS 03/24/20 10/02/21 Escitalopram [Lexapro] 20 mg PO DAILY 03/24/20 10/02/21 ALPRAZolam [Xanax] 0.25 mg PO BID PRN 10/02/21 10/02/21 Clopidogrel [Plavix] 75 mg PO DAILY 10/02/21 10/02/21 INSULIN LISPRO (HumaLOG) [humaLOG] 0.01 unit SQ-PUMP CONTINUOUS 10/02/21 10/02/21 Allergies Allergy/AdvReac Type Severity Reaction Status Date / Time adhesive tape Allergy Rash/Hives Verified 03/23/22 15:29 Penicillins Allergy Rash/Hives Verified 03/23/22 15:29 atorvastatin AdvReac Myalgia Verified 03/23/22 15:29 meperidine HCl [From Demerol] AdvReac Hallucinati Verified 03/23/22 15:29 ons Review of Systems ROS Statement: Those systems with pertinent positive or pertinent negative responses have been documented in the HPI. ROS Other: All systems not noted in ROS Statement are negative. Past Medical History Past Medical History: Asthma, Coronary Artery Disease (CAD), Chest Pain / Angina, Heart Failure, Diabetes Mellitus, Eye Disorder, Fibromyalgia, GERD/Reflux, Hyperlipidemia, Hypertension, Myocardial Infarction ([place]), Osteoarthritis (OA), Pneumonia, Renal Disease, Syncope, Vascular Disorder Additional Past Medical History / Comment(s): IDDM type II with insulin pump, neuropathy bilateral feet/legs, bilateral eye macular degeneration/diabetic retinopathy, CKD stage III, UTIs with one recently tx with antibiotic, bronchitis, IBS, constipation with last BM 10/14/19, DJD, osteopenia, L hip fracture with surgery, T12 compression fx with surgery, PAD with past bilateral foot wounds/currently has 2 small black spots on R great toe and L 2nd toe, vertigo, migraines, light headed with activity, bruises easily. Last Myocardial Infarction Date:: 02/12/2016 History of Any Multi-Drug Resistant Organisms: None Reported Past Surgical History: Adenoidectomy, AICD, Bariatric Surgery, Breast Surgery, Cholecystectomy, Heart Catheterization, Heart Catheterization With Stent, Hernia Repair, Joint Replacement, Orthopedic Surgery, Tonsillectomy Additional Past Surgical History / Comment(s): PCI/stent, AICD, lap band with removal/gastric sleeve, EGDs, colonoscopies, hiatal hernia surgery, multiple incisional hernia repairs/mesh, bilateral shoulder manipulation, total L hip arthroplasty, L little finger amputation, L elbow staph infection with surgery, T12 kyphoplasty/biopsy, R anterior PTBA with subsequent hematoma, L fempop arthrectomy/PTBA/stent, angiograms. bilateral breast benign biopsies, D&C. Past Anesthesia/Blood Transfusion Reactions: Postoperative Nausea & Vomiting (PONV) Additional Past Anesthesia/Blood Transfusion Reaction / Comment(s): Past blood transfusion 2016-no reaction. Date of Last Stent Placement:: 02/2016 Type of Cardiac Device: AICD Device Placement Date:: Past Psychological History: Anxiety, Depression Smoking Status: Former smoker Past Alcohol Use History: None Reported Past Drug Use History: None Reported - Past Family History Father Family Medical History: Diabetes Mellitus Additional Family Medical History / Comment(s): Alcoholism. Mother Family Medical History: COPD, Diabetes Mellitus, Deep Vein Thrombosis (DVT) Additional Family Medical History / Comment(s): . General Exam - General Exam Comments Initial Comments: GENERAL Patient is well-developed and well-nourished. Patient is in mild distress. EYES Patient's pupils are equal and round. Extraocular motion is intact SKIN Unremarkable NEURO The patient is alert and oriented 3 PYSCH Patient has normal interpersonal interactions. MUSCULOSKELETAL Patient has some tenderness when I palpate the patella however when I distract her she has no pain in palpating the patella. Patient has no swelling patient will not let me try range of motion or ligament laxity because she states it hurts too much. There is no pain on the tib-fib there is no pain in the ankle and foot or hip Course Vital Signs 03/23/22 13:45 Temperature 98.1 F Pulse Rate 50 L Respiratory 18 Rate Blood Pressure 116/47 O2 Sat by Pulse 99 Oximetry Medical Decision Making - Medical Decision Making I interpreted the x-ray of the knee. The knee shows no acute abnormality. Patient will be giving a knee immobilizer and patient will be discharged home. Patient's knee is still has no swelling. Patient states he has no effusion Disposition Clinical Impression: Knee strain Disposition: HOME SELF-CARE Instructions (If sedation given, give patient instructions): Knee Sprain (ED) Is patient prescribed a controlled substance at d/c from ED?: No Referrals: Jairo Levi DO [Primary Care Provider] - 1-2 days Time of Disposition: 15:31
--- NOTE | 2022-03-23 14:19 | XR ---
EXAMINATION TYPE: XR knee 4V RT DATE OF EXAM: 03/23/2022 CLINICAL HISTORY: Trauma injury with pain TECHNIQUE: Three views of the right knee are obtained. Fourth sunrise view is acquired. COMPARISON: Prior bilateral knee x-rays October 02, 2021. FINDINGS: Osseous structures remain demineralized. There is no acute fracture/dislocation evident in right knee. Mild to moderate tricompartment joint space loss remains present. Patellar articulation satisfactory on the sunrise view. Severe posterior arterial vascular calcification again seen. IMPRESSION: There is no acute fracture or dislocation in the right knee.
[2022-03-23 14:22] VITALS: RESP 18; TEMP 98.1
[2022-03-23] MEDS ORDERED: KETOROLAC 15 MG/ML 1 ML VIAL IM STA (15:59)
[2022-03-23 16:29] VITALS: BP 132/59; PULSE 56
== END 2022-03-23 16:27 | disposition home or self-care (01) ==
LOC: EC 13:34
DX: S83.91XA Sprain of unspecified site of right knee, initial encounter (principal); J45.909 Unspecified asthma, uncomplicated; I25.10 Atherosclerotic heart disease of native coronary artery without angina pectoris; K21.9 Gastro-esophageal reflux disease without esophagitis; E78.5 Hyperlipidemia, unspecified; M19.90 Unspecified osteoarthritis, unspecified site; I13.0 Hypertensive heart and chronic kidney disease with heart failure and stage 1 through stage 4 chronic kidney disease, or unspecified chronic kidney disease; E11.22 Type 2 diabetes mellitus with diabetic chronic kidney disease; N18.9 Chronic kidney disease, unspecified; I50.9 Heart failure, unspecified; I25.2 Old myocardial infarction; F32.A Depression, unspecified; F41.9 Anxiety disorder, unspecified; Z87.891 Personal history of nicotine dependence; Z88.0 Allergy status to penicillin; Z88.5 Allergy status to narcotic agent; Z88.8 Allergy status to other drugs, medicaments and biological substances; Z79.83 Long term (current) use of bisphosphonates; Z79.4 Long term (current) use of insulin; Z79.899 Other long term (current) drug therapy; W18.11XA Fall from or off toilet without subsequent striking against object, initial encounter; Y92.002 Bathroom of unspecified non-institutional (private) residence as the place of occurrence of the external cause
CPT/HCPCS: 73564; 99284; 96372; L1830; J1885

== ENCOUNTER 2022-03-28 05:41 | Inpatient (IN) | payer MEDICARE ==
[2022-03-28] MEDS ORDERED: methylPREDNISolone SOD SUCCI 125 MG/2 ML VIAL IV STA (05:58)
[2022-03-28] MEDS ORDERED: IPRATROPIUM-ALBUTEROL 3 ML NEB INHALATION STA ×2 (05:58→05:59)
--- NOTE | 2022-03-28 06:10 | ED ---
General Adult HPI - General Chief complaint: Shortness of Breath Stated complaint: [place] Time Seen by Provider: 03/28/22 05:58 Source: patient, EMS, RN notes reviewed, old records reviewed Mode of arrival: EMS Limitations: no limitations - History of Present Illness Initial comments: Patient is a 67-year-old female who is somewhat a poor historian at this time. Has a history of asthma, is a former smoker with possible COPD,DM on insulin pump, CAD, heart failure, fibromyalgia, hypertension, peripheral vascular disease, who presents emergency Department with shortness of breath. States it started last night. Has been having upper respiratory symptoms including cough, nasal congestion. States she thinks she has had these for a day or 2. Does end orse a history of heart failure and states that intermittent and she has noticed that she has had worsening swelling in her legs recently. Unknown baseline. Denies orthopnea or PND. Denies productive cough. Denies any chest pain, abdominal pain, nausea, vomiting. No other acute complaints at this time. She presents over concern for her upper respiratory symptoms. Is concerned as she was nearby individuals with no masks on recently and was concerned regarding possible COVID-19 or influenza exposure - Related Data Home Medications Medication Instructions Recorded Confirmed Omeprazole [PriLOSEC] 40 mg PO AC-BRKFST 08/06/14 03/23/22 Rosuvastatin Calcium 40 mg PO DAILY 10/22/16 03/23/22 Furosemide [Lasix] 40 mg PO DAILY 03/18/18 03/23/22 Potassium Chloride ER [K-Dur 10] 10 meq PO DAILY 03/18/18 03/23/22 Metoprolol Succinate (ER) [Toprol 50 mg PO DAILY 09/30/18 03/23/22 XL] Furosemide [Lasix] 20 mg PO HS 01/15/19 03/23/22 Ezetimibe [Zetia] 10 mg PO DAILY 06/15/19 03/23/22 ALPRAZolam [Xanax] 0.25 mg PO HS 03/21/20 03/23/22 Ferrous Sulfate [Feosol] 325 mg PO DAILY 03/21/20 03/23/22 calcitrioL [Rocaltrol] 0.5 mcg PO DAILY 03/21/20 03/23/22 Cyclobenzaprine [Flexeril] 10 mg PO HS 03/24/20 03/23/22 Escitalopram [Lexapro] 20 mg PO DAILY 03/24/20 03/23/22 ALPRAZolam [Xanax] 0.25 mg PO BID PRN 10/02/21 03/23/22 Clopidogrel [Plavix] 75 mg PO DAILY 10/02/21 03/23/22 Ergocalciferol [Vitamin D2 (1250 1,250 mcg PO Q28D 03/23/22 03/23/22 Mcg = 96547 Iu)] INSULIN LISPRO (For Pump) [humaLOG 0.01 units SQ-PUMP CONTINUOUS 03/23/22 03/23/22 (For Pump)] cilostazoL [Pletal] 50 mg PO BID 03/23/22 03/23/22 Allergies Allergy/AdvReac Type Severity Reaction Status Date / Time adhesive tape Allergy Rash/Hives Verified 03/28/22 05:46 Penicillins Allergy Rash/Hives Verified 03/28/22 05:46 atorvastatin AdvReac Myalgia Verified 03/28/22 05:46 meperidine HCl [From Demerol] AdvReac Hallucinati Verified 03/28/22 05:46 ons Review of Systems ROS Statement: Those systems with pertinent positive or pertinent negative responses have been documented in the HPI. Review of Systems: CONST: Denies fever EYES: Denies blurry vision ENT: Endorses nasal congestion C/V: Denies Chest pain RESP: Endorses wheezing GI: Denies abdominal pain : Denies dysuria SKIN: Denies rash. MSK: Denies joint pain. NEURO: Denies headache ROS Other: All systems not noted in ROS Statement are negative. Past Medical History Past Medical History: Asthma, Coronary Artery Disease (CAD), Chest Pain / Angina, Heart Failure, Diabetes Mellitus, Eye Disorder, Fibromyalgia, GERD/Reflux, Hyperlipidemia, Hypertension, Myocardial Infarction ([place]), Osteoarthritis (OA), Pneumonia, Renal Disease, Syncope, Vascular Disorder Additional Past Medical History / Comment(s): IDDM type II with insulin pump, neuropathy bilateral feet/legs, bilateral eye macular degeneration/diabetic retinopathy, CKD stage III, UTIs with one recently tx with antibiotic, bronc hitis, IBS, constipation with last BM 10/14/19, DJD, osteopenia, L hip fracture with surgery, T12 compression fx with surgery, PAD with past bilateral foot wounds/currently has 2 small black spots on R great toe and L 2nd toe, vertigo, migraines, light headed with activity, bruises easily. Last Myocardial Infarction Date:: 02/12/2016 History of Any Multi-Drug Resistant Organisms: None Reported Past Surgical History: Adenoidectomy, AICD, Bariatric Surgery, Breast Surgery, Cholecystectomy, Heart Catheterization, Heart Catheterization With Stent, Hernia Repair, Joint Replacement, Orthopedic Surgery, Tonsillectomy Additional Past Surgical History / Comment(s): PCI/stent, AICD, lap band with removal/gastric sleeve, EGDs, colonoscopies, hiatal hernia surgery, multiple incisional hernia repairs/mesh, bilateral shoulder manipulation, total L hip arthroplasty, L little finger amputation, L elbow staph infection with surgery, T12 kyphoplasty/biopsy, R anterior PTBA with subsequent hematoma, L fempop arthrectomy/PTBA/stent, angiograms. bilateral breast benign biopsies, D&C. Past Anesthesia/Blood Transfusion Reactions: Postoperative Nausea & Vomiting (PONV) Additional Past Anesthesia/Blood Transfusion Reaction / Comment(s): Past blood transfusion 2016-no reaction. Date of Last Stent Placement:: 02/2016 Type of Cardiac Device: AICD Device Placement Date:: Past Psychological History: Anxiety, Depression Smoking Status: Former smoker Past Alcohol Use History: None Reported Past Drug Use History: None Reported - Past Family History Father Family Medical History: Diabetes Mellitus Additional Family Medical History / Comment(s): Alcoholism. Mother Family Medical History: COPD, Diabetes Mellitus, Deep Vein Thrombosis (DVT) Additional Family Medical History / Comment(s): . General Exam - General Exam Comments Initial Comments: General: Appears in no acute distress. HEAD: Normal with no signs of head trauma. EYES: PERRLA, EOMI, conjunctiva normal, no discharge. ENT: Hearing grossly intact, normal oropharynx. RESPIRATORY: Bilateral end expiratory wheezing. No obvious rhonchi. Mildly hypoxic on room air. No increased work of breathing. C/V: Regular rate and rhythm. S1 and S2 auscultated, mild bilateral lower extremity pitting edema, peripheral pulses 2+ and intact throughout ABD: Abd is soft, nontender, nondistended EXT: Normal range of motion, no obvious deformity SKIN: No rashes or lesions observed on exposed skin. NEURO: Alert and oriented 4. Limitations: no limitations Course Vital Signs 03/28/22 03/28/22 03/28/22 05:43 06:09 06:24 Temperature 97.6 F Pulse Rate 85 82 81 Respiratory 22 Rate Blood Pressure 167/77 O2 Sat by Pulse 94 L Oximetry Medical Decision Making - Medical Decision Making Based on the patient's presentation and physical exam, and concern for cardiopulmonary etiology for her current symptoms. Does appear to be having an asthma or COPD exacerbation but with the patient being a poor historian and some mild lower extremity pitting edema with history of heart failure and a nonproductive cough cannot rule out CHF this time. We will obtain cardio pulmonary labs. We will obtain Covid and influenza swabs. Patient was in agreement this plan. She'll be given multiple breathing treatments and IV steroids. Vital signs within acceptable limits. EKG shows no acute cardiopulmonary process. Chest x-ray as interpreted by me reveals bilateral pulmonary vascular congestion likely secondary to CHF. This is supported by an elevated BNP of 3500. Patient's troponin is elevated to 0.165. Patient also has a hyperkalemia of 6.3 without any signs of EKG changes. She is Covid, flu, RSV negative. Patient has received an aspirin already. She will receive a hyperkalemia cocktail, as well as be started on a heparin drip. Patient will receive IV Lasix for her heart failure exacerbation as well as for the hyperkalemia. We will continue to treat his COPD exacerbation with IV steroids as well as breathing treatments. Patient remains relatively asymptomatic at this time. She denies any chest pain. States her breathing is improved. She is still requiring 2 L nasal cannula to maintain adequate oxygenation. However her work of breathing has improved at this time. She was in agreement to admission. After the patient with the plan. She was in agreement this plan. Cardiology will be consulted. Echo was ordered. Pulmonology was consulted, I [facility] with the admitting team[facility] for Dr. Jairo Levi. He accepted the patient was in agreement this plan. Patient was admitted in stable condition. - Lab Data Result diagrams: 03/28/22 05:46 03/28/22 05:46 Lab Results 03/28/22 03/28/22 03/28/22 Range/Units 05:46 05:46 05:46 WBC 7.9 (3.8-10.6) k/uL RBC 4.20 (3.80-5.40) m/uL Hgb 11.5 (11.4-16.0) gm/dL Hct 36.2 (34.0-46.0) % MCV 86.3 (80.0-100.0) fL MCH 27.3 (25.0-35.0) pg MCHC 31.6 (31.0-37.0) g/dL RDW 15.0 (11.5-15.5) % Plt Count 215 (150-450) k/uL MPV 8.9 Neutrophils % 80 % Lymphocytes % 14 % Monocytes % 4 % Eosinophils % 1 % Basophils % 0 % Neutrophils # 6.3 (1.3-7.7) k/uL Lymphocytes # 1.1 (1.0-4.8) k/uL Monocytes # 0.3 (0-1.0) k/uL Eosinophils # 0.1 (0-0.7) k/uL Basophils # 0.0 (0-0.2) k/uL Hypochromasia Marked PT 10.1 (9.0-12.0) sec INR 0.9 (<1.2) APTT 22.2 (22.0-30.0) sec Sodium 135 L (137-145) mmol/L Potassium 6.3 H* (3.5-5.1) mmol/L Chloride 111 H (98-107) mmol/L Carbon Dioxide 18 L (22-30) mmol/L Anion Gap 6 mmol/L BUN 28 H (7-17) mg/dL Creatinine 1.45 H (0.52-1.04) mg/dL Est GFR (CKD-EPI)AfAm 43 (>60 ml/min/1.73 sqM) Est GFR (CKD-EPI)NonAf 37 (>60 ml/min/1.73 sqM) Glucose 395 H (74-99) mg/dL Calcium 8.5 (8.4-10.2) mg/dL Magnesium 2.4 H (1.6-2.3) mg/dL Total Bilirubin 0.7 (0.2-1.3) mg/dL AST 23 (14-36) U/L ALT 9 (4-34) U/L Alkaline Phosphatase 70 (38-126) U/L Troponin I (0.000-0.034) ng/mL NT-Pro-B Natriuret Pep pg/mL Total Protein 6.6 (6.3-8.2) g/dL Albumin 3.7 (3.5-5.0) g/dL Influenza Type A (PCR) (Not Detectd) Influenza Type B (PCR) (Not Detectd) RSV (PCR) (Not Detectd) SARS-CoV-2 (PCR) (Not Detectd) 03/28/22 03/28/22 03/28/22 Range/Units 05:46 05:46 05:46 WBC (3.8-10.6) k/uL RBC (3.80-5.40) m/uL Hgb (11.4-16.0) gm/dL Hct (34.0-46.0) % MCV (80.0-100.0) fL MCH (25.0-35.0) pg MCHC (31.0-37.0) g/dL RDW (11.5-15.5) % Plt Count (150-450) k/uL MPV Neutrophils % % Lymphocytes % % Monocytes % % Eosinophils % % Basophils % % Neutrophils # (1.3-7.7) k/uL Lymphocytes # (1.0-4.8) k/uL Monocytes # (0-1.0) k/uL Eosinophils # (0-0.7) k/uL Basophils # (0-0.2) k/uL Hypochromasia PT (9.0-12.0) sec INR (<1.2) APTT (22.0-30.0) sec Sodium (137-145) mmol/L Potassium (3.5-5.1) mmol/L Chloride (98-107) mmol/L Carbon Dioxide (22-30) mmol/L Anion Gap mmol/L BUN (7-17) mg/dL Creatinine (0.52-1.04) mg/dL Est GFR (CKD-EPI)AfAm (>60 ml/min/1.73 sqM) Est GFR (CKD-EPI)NonAf (>60 ml/min/1.73 sqM) Glucose (74-99) mg/dL Calcium (8.4-10.2) mg/dL Magnesium (1.6-2.3) mg/dL Total Bilirubin (0.2-1.3) mg/dL AST (14-36) U/L ALT (4-34) U/L Alkaline Phosphatase (38-126) U/L Troponin I 0.165 H* (0.000-0.034) ng/mL NT-Pro-B Natriuret Pep 3450 pg/mL Total Protein (6.3-8.2) g/dL Albumin (3.5-5.0) g/dL Influenza Type A (PCR) Not Detected (Not Detectd) Influenza Type B (PCR) Not Detected (Not Detectd) RSV (PCR) Not Detected (Not Detectd) SARS-CoV-2 (PCR) Not Detected (Not Detectd) - EKG Data -: EKG Interpreted by Me EKG Comments: 12-lead Electrocardiogram Interpretation Note EKG was reviewed and interpreted by myself. 12-lead ECG performed at 0546 is interpreted by me as revealing normal sinus rhythm at a rate of 81 beats per minute. Salyer is normal. FL interval is 173 ms, QRS durations 106 ms, QTc is 413 ms.. There were no acute significant ST or T wave abnormalities to suggest myocardial ischemia or injury. Patient does have an ST segment depression in lead II with no real reciprocal changes.R wave progression across the precordium was satisfactory. By my interpretation this EKG is non-diagnostic for acute ischemia. When compared with EKG from September 2018, no significant change except for the isolated depression. Critical Care Time Critical Care Time: Yes Total Critical Care Time: 35 Critical Care Time: Upon my evaluation, this patient had a high probability of imminent or life- threatening deterioration due to NSTEMI, COPD exacerbation, congestive heart failure, which required my direct attention, intervention, and personal management. I have personally provided 35 minutes of critical care time exclusive of time spent on separately billable procedures. Time includes review of laboratory data, radiology results, discussion with consultants, and monitoring for potential decompensation. Interventions were performed as documented in my note. Disposition Clinical Impression: NSTEMI (non-ST elevated myocardial infarction), CHF (congestive heart failure), COPD exacerbation, Hyperkalemia, Hypoxia Disposition: ADMITTED IP TO THIS HOSP Condition: Serious Referrals: Jairo Levi DO [Primary Care Provider] - 1-2 days Time of Disposition: 06:55
[2022-03-28 06:11] LABS: Basophils % (A) 0 %; Eosinophils # (A) 0.1 k/uL (0-0.7); Eosinophils % (A) 1 %; HCT 36.2 % (34.0-46.0); HGB 11.5 gm/dL (11.4-16.0); Hypochromasia Marked; Lymphocytes # (A) 1.1 k/uL (1.0-4.8); Lymphocytes % (A) 14 %; MCH 27.3 pg (25.0-35.0); MCHC 31.6 g/dL (31.0-37.0); MCV 86.3 fL (80.0-100.0); Mean Platelet Volume 8.9; Monocytes # (A) 0.3 k/uL (0-1.0); Monocytes % (A) 4 %; Neutrophils # (A) 6.3 k/uL (1.3-7.7); Neutrophils % (A) 80 %; Platelet Count 215 k/uL (150-450); WBC 7.9 k/uL (3.8-10.6)
[2022-03-28 06:22] LABS: INR 0.9 (<1.2); Partial Thromboplastin Time 22.2 sec (22.0-30.0); Prothrombin Time 10.1 sec (9.0-12.0)
[2022-03-28 06:33] LABS: Albumin 3.7 g/dL (3.5-5.0); Calcium 8.5 mg/dL (8.4-10.2); Magnesium 2.4 mg/dL (1.6-2.3); Total Bilirubin 0.7 mg/dL (0.2-1.3); Total Protein 6.6 g/dL (6.3-8.2)
[2022-03-28] MEDS ORDERED: ASPIRIN 81 MG PO STA (06:42)
[2022-03-28] MEDS ORDERED: FUROSEMIDE 10 MG/ML 4 ML VIAL IV STA (06:42)
[2022-03-28] MEDS ORDERED: IPRATROPIUM-ALBUTEROL 3 ML NEB INHALATION PRN ×2 (06:43→13:17)
[2022-03-28 06:44] LABS: Potassium 6.3 mmol/L (3.5-5.1)
[2022-03-28] MEDS ORDERED: INSULIN REGULAR 100 UNIT/ML VIAL (IV) IV ONE ×2 (06:44→11:13)
[2022-03-28] MEDS ORDERED: DEXTROSE 50% SYRINGE 50 ML IVP ONE (06:44)
[2022-03-28] MEDS ORDERED: ALBUTEROL NEB (CONC) 2.5 MG/0.5 ML INHALATION ONE (06:44)
[2022-03-28] MEDS ORDERED: HEPARIN SODIUM 1,000 UN/ML (10ML VL) IV PRN (06:53)
[2022-03-28] MEDS ORDERED: HEPARIN SODIUM 1,000 UN/ML (10ML VL) IV ONE (06:53)
[2022-03-28] MEDS ORDERED: CALCIUM GLUCONATE IN NACL 1 GM in SALINE 1 100ML.BAG IVPB ONE (07:00)
[2022-03-28] MEDS ORDERED: NALOXONE 0.4 MG/ML 1 ML VIAL IV PRN (07:01)
[2022-03-28] MEDS ORDERED: SODIUM ZIRCONIUM CYCLOSILICATE 10 GM PACKET PO ONE (07:19)
[2022-03-28] MEDS: HEPARIN SOD,PORK IN 0.45% NACL 25,000 UNIT in 0.45% NACL 1 250ML.BAG IV SCH (07:30)
--- NOTE | 2022-03-28 07:56 | XR ---
EXAM: XR Chest, 2 Views CLINICAL HISTORY: ITS.REASON XR Reason: difficulty breathing TECHNIQUE: Frontal and lateral views of the chest. COMPARISON: XR Chest dated 06/22/19 FINDINGS: Lungs: Low lung volumes. Increased interstitial markings and central vascular congestion. Pleural space: Unremarkable. No pneumothorax. Heart: Unremarkable. No cardiomegaly. Mediastinum: Unremarkable. Bones/joints: Vertebroplasty of lower thoracic vertebral body. Tubes, lines and devices: Stable left chest wall pacemaker device. IMPRESSION: Low lung volumes. Increased interstitial markings and central vascular congestion. May represent edema.
[2022-03-28 09:24] LABS: Calcium 8.8 mg/dL (8.4-10.2); Potassium 4.5 mmol/L (3.5-5.1)
[2022-03-28 10:30] LABS: Glucose,Whole Blood 539 mg/dL (70-110)
[2022-03-28 11:43] LABS: Appearance,Urine Clear (Clear); Bilirubin,Urine Negative (Negative); Blood,Urine Negative (Negative); Budding Yeast,Urine Many /hpf; Color,Urine Colorless; Glucose,Urine (UA) 4+ (Negative); Ketones,Urine Negative (Negative); Leukocyte Esterase,Urine Trace (Negative); Mucus,Urine Rare /hpf; Nitrite,Urine Negative (Negative); Protein,Urine Trace (Negative); RBC,Urine 1 /hpf (0-5); Specific Gravity,Urine 1.009 (1.001-1.035); Squamous Epithelial Cell,Urine <1 /hpf (0-4); Urobilinogen,Urine <2.0 mg/dL (<2.0); WBC,Urine 3 /hpf (0-5)
[2022-03-28] MEDS ORDERED: DEXTROSE 50% SYRINGE 50 ML IVP PRN (12:03)
[2022-03-28] MEDS ORDERED: INSULIN REGULAR 100 UNIT in SODIUM CHLORIDE 0.9% 100 ML IV SCH (12:15)
[2022-03-28 12:42] LABS: Glucose,Whole Blood 340 mg/dL (70-110)
[2022-03-28] MEDS ORDERED: ALPRAZolam 0.25 MG TAB PO PRN (13:58)
[2022-03-28] MEDS ORDERED: ERGOCALCIFEROL 1,250 MCG (50,000 IU) CAPSULE PO SCH (14:00)
[2022-03-28 14:08] LABS: Glucose,Whole Blood 321 mg/dL (70-110)
[2022-03-28] MEDS: METOPROLOL SUCCINATE (ER) 50 MG TAB.ER.24H PO SCH (14:54)
[2022-03-28] MEDS: CLOPIDOGREL 75 MG TAB PO SCH (14:54)
[2022-03-28] MEDS ORDERED: methylPREDNISolone SOD SUCCI 125 MG/2 ML VIAL IV SCH (15:00)
[2022-03-28] MEDS: IPRATROPIUM-ALBUTEROL 3 ML NEB INHALATION SCH ×2 (15:11→19:14)
--- NOTE | 2022-03-28 15:24 | P.CNPUL ---
History of Present Illness Consult date: 03/28/22 Requesting physician: Kwasi Koroma Reason for consult: dyspnea, hypoxemia, abnormal CXR/CT Chief complaint: Shortness of breath. History of present illness: Pulmonary consult dated 03/28/2022. 67-year-old female who comes into the emergency department on March 28, complaining of shortness of breath. She states that the shortness of breath came on suddenly. In addition, the patient complains of wheezing, and, some mild chest discomfort. The patient was seen in the emergency department, and admitted to the hospital. I was asked to see her for the shortness of breath. Her primary care physician Dr. Jairo Levi. She does have a remote history of tobacco use, but denies a history of any pulmonary issues. Currently, she is on 2 L, with saturations of 98%. She's getting IV heparin. She was thought to possibly have a non-ST segment elevation myocardial infarction. Chest x-ray was consistent with CHF. She does have a prior history of a percutaneous coronary intervention, with stent placement. Other medical problems include heart failure, diabetes, GERD, fibromyalgia, hyperlipidemia, coronary disease, asthma, syncope, and stage III chronic kidney disease. White count of 7.9, hemoglobin 11.5, hematocrit 36.2, and platelet count 215,000. PTT is 43.8. Sodium 136, potassium 4.5, chlorides 108, CO2 19, anion gap 9, BUN 28, and creatinine 1.49. Troponin is 3.440. N-terminal proBNP is 3450. Chest x-ray and my opinion is consistent with fluid overload. Review of Systems REVIEW OF SYSTEMS: CONSTITUTIONAL: [Negative.] NEUROLOGIC: [ Negative.] HEENT: [ Negative.] CARDIAC: Shortness of breath. PULMONARY: Shortness of breath. GI: [Negative.] : [Negative.] RHEUMATOLOGIC: [ Negative.] IMMUNOLOGIC: [ Negative.] ENDOCRINE: [Negative. ] DERMATOLOGIC: [Negative.] Past Medical History Past Medical History: Asthma, Coronary Artery Disease (CAD), Chest Pain / Angina, Heart Failure, Diabetes Mellitus, Eye Disorder, Fibromyalgia, GERD/Reflux, Hyperlipidemia, Hypertension, Myocardial Infarction ([place]), Osteoarthritis (OA), Pneumonia, Renal Disease, Syncope, Vascular Disorder Additional Past Medical History / Comment(s): IDDM type II with insulin pump, neuropathy bilateral feet/legs, bilateral eye macular degeneration/diabetic retinopathy, CKD stage III, UTIs with one recently tx with antibiotic, bronchitis, IBS, constipation with last BM 10/14/19, DJD, osteopenia, L hip fracture with surgery, T12 compression fx with surgery, PAD with past bilateral foot wounds/currently has 2 small black spots on R great toe and L 2nd toe, vertigo, migraines, light headed with activity, bruises easily. Last Myocardial Infarction Date:: 02/12/2016 History of Any Multi-Drug Resistant Organisms: None Reported Past Surgical History: Adenoidectomy, AICD, Bariatric Surgery, Breast Surgery, Cholecystectomy, Heart Catheterization, Heart Catheterization With Stent, Hernia Repair, Joint Replacement, Orthopedic Surgery, Tonsillectomy Additional Past Surgical History / Comment(s): PCI/stent, AICD, lap band with removal/gastric sleeve, EGDs, colonoscopies, hiatal hernia surgery, multiple incisional hernia repairs/mesh, bilateral shoulder manipulation, total L hip arthroplasty, L little finger amputation, L elbow staph infection with surgery, T12 kyphoplasty/biopsy, R anterior PTBA with subsequent hematoma, L fempop arthrectomy/PTBA/stent, angiograms. bilateral breast benign biopsies, D&C. Past Anesthesia/Blood Transfusion Reactions: Postoperative Nausea & Vomiting (PONV) Additional Past Anesthesia/Blood Transfusion Reaction / Comment(s): Past blood transfusion 2015-no reaction. Date of Last Stent Placement:: 02/2016 Type of Cardiac Device: AICD Device Placement Date:: Past Psychological History: Anxiety, Depression Additional Psychological History / Comment(s): Pt resides with her spouse who assists in her care. She just initiated home care she believes with [facility]. She states she is mostly wheelchair bound. Until recently, she was able to transfer self to w/c. Her spouse drives. Spouse checks her feet and assists with managing her medications. She has an insulin pump/glucometer. Smoking Status: Former smoker Past Alcohol Use History: None Reported Additional Past Alcohol Use History / Comment(s): Pt started smoking at the age of 11 and quit smoking many yrs ago- in the late 1970s. Past Drug Use History: None Reported Additional Drug Use History / Comment(s): CBD gummies - Past Family History Father Family Medical History: Diabetes Mellitus Additional Family Medical History / Comment(s): Alcoholism. Mother Family Medical History: COPD, Diabetes Mellitus, Deep Vein Thrombosis (DVT) Additional Family Medical History / Comment(s): . Medications and Allergies Home Medications Medication Instructions Recorded Confirmed Type Omeprazole [PriLOSEC] 40 mg PO AC-BRKFST 08/06/14 03/28/22 History Rosuvastatin Calcium 40 mg PO DAILY 10/22/16 03/28/22 History Furosemide [Lasix] 40 mg PO DAILY 03/18/18 03/28/22 History Potassium Chloride ER [K-Dur 10] 10 meq PO DAILY 03/18/18 03/28/22 History Metoprolol Succinate (ER) [Toprol 50 mg PO DAILY 09/30/18 03/28/22 History XL] Furosemide [Lasix] 20 mg PO HS 01/15/19 03/28/22 History Ezetimibe [Zetia] 10 mg PO DAILY 06/15/19 03/28/22 History ALPRAZolam [Xanax] 0.25 mg PO HS 03/21/20 03/28/22 History Ferrous Sulfate [Feosol] 325 mg PO DAILY 03/21/20 03/28/22 History calcitrioL [Rocaltrol] 0.5 mcg PO DAILY 03/21/20 03/28/22 History Cyclobenzaprine [Flexeril] 10 mg PO HS 03/24/20 03/28/22 History Escitalopram [Lexapro] 20 mg PO DAILY 03/24/20 03/28/22 History ALPRAZolam [Xanax] 0.25 mg PO BID PRN 10/02/21 03/28/22 History Clopidogrel [Plavix] 75 mg PO DAILY 10/02/21 03/28/22 History Ergocalciferol [Vitamin D2 (1250 1,250 mcg PO Q28D 03/23/22 03/28/22 History Mcg = 33795 Iu)] INSULIN LISPRO (For Pump) [humaLOG 0.01 units SQ-PUMP CONTINUOUS 03/23/22 03/28/22 History (For Pump)] cilostazoL [Pletal] 50 mg PO BID 03/23/22 03/28/22 History Gabapentin 300 mg PO HS 03/28/22 03/28/22 History predniSONE 10 mg PO DAILY 03/28/22 03/28/22 History Allergies Allergy/AdvReac Type Severity Reaction Status Date / Time adhesive tape Allergy Rash/Hives Verified 03/28/22 13:16 Penicillins Allergy Rash/Hives Verified 03/28/22 13:16 atorvastatin AdvReac Myalgia Verified 03/28/22 13:16 meperidine HCl [From Demerol] AdvReac Hallucinati Verified 03/28/22 13:16 ons Physical Exam Osteopathic Statement: *. No significant issues noted on an osteopathic structural exam other than those noted in the History and Physical/Consult. Vitals: Vital Signs Temp Pulse Pulse Resp BP BP Pulse Ox 03/28/22 14:01 98.2 F 100 18 138/75 100 03/28/22 12:54 102 H 18 139/83 97 03/28/22 11:35 105 H 24 113/64 100 03/28/22 10:48 103 H 22 140/77 99 03/28/22 09:26 101 H 26 H 144/82 99 03/28/22 08:37 98 18 170/85 98 03/28/22 08:08 92 03/28/22 07:55 92 95 03/28/22 07:41 93 19 171/91 97 03/28/22 06:24 81 03/28/22 06:09 82 03/28/22 05:43 97.6 F 85 22 167/77 94 L Intake and Output 03/28/22 03/28/22 03/28/22 06:59 14:59 22:59 Intake Total 540 Balance 540 Intake: Oral 540 Other: Weight 79.379 kg 79.379 kg No acute distress, oriented 3. Currently on 2 L of oxygen. Saturations 98%. HEENT examination is grossly unremarkable. Neck supple. Full range of motion. No adenopathy thyromegaly or neck vein distention. Cardiovascular examination reveals regular rhythm rate. S1-S2 normal. No S3 or S4. No discernible murmur noted. Heart sounds are distant. Heart rate 90 bpm. Lungs reveal bibasilar crackles. Minimal rhonchi. No wheezes. Breath sounds equal bilaterally. 2 L saturation is 98%. Abdomen soft bowel sounds are heard. No masses or tenderness. Extremities are intact. No cyanosis or clubbing. Trace edema. Skin is without rash or lesion. Neurologic examination is brief but nonfocal. Results - Laboratory Findings CBC and BMP: 03/28/22 05:46 03/28/22 09:05 PT/INR, D-dimer PT 10.1 sec (9.0-12.0) 03/28/22 05:46 INR 0.9 (<1.2) 03/28/22 05:46 Abnormal lab findings: Abnormal Labs 03/28/22 03/28/22 03/28/22 05:46 05:46 09:05 APTT Sodium 135 L 136 L Potassium 6.3 H* Chloride 111 H 108 H Carbon Dioxide 18 L 19 L BUN 28 H 28 H Creatinine 1.45 H 1.49 H Glucose 395 H 401 H POC Glucose (mg/dL) Magnesium 2.4 H Troponin I 0.165 H* Urine Protein Urine Glucose (UA) Ur Leukocyte Esterase Urine Mucus Urine Yeast (Budding) 03/28/22 03/28/22 03/28/22 10:27 11:23 11:33 APTT Sodium Potassium Chloride Carbon Dioxide BUN Creatinine Glucose POC Glucose (mg/dL) 539 H Magnesium Troponin I 0.553 H* Urine Protein Trace H Urine Glucose (UA) 4+ H Ur Leukocyte Esterase Trace H Urine Mucus Rare H Urine Yeast (Budding) Many H 03/28/22 03/28/22 03/28/22 12:40 13:54 13:54 APTT 43.8 H Sodium Potassium Chloride Carbon Dioxide BUN Creatinine Glucose POC Glucose (mg/dL) 340 H Magnesium Troponin I 3.440 H* Urine Protein Urine Glucose (UA) Ur Leukocyte Esterase Urine Mucus Urine Yeast (Budding) 03/28/22 14:01 APTT Sodium Potassium Chloride Carbon Dioxide BUN Creatinine Glucose POC Glucose (mg/dL) 321 H Magnesium Troponin I Urine Protein Urine Glucose (UA) Ur Leukocyte Esterase Urine Mucus Urine Yeast (Budding) - Diagnostic Findings Chest x-ray: image reviewed Assessment and Plan Assessment: Acute shortness of breath, most likely related to non-ST segment elevation myocardial infarction, and acute CHF. Vague history of COPD/asthma, although the patient smoked remotely, and did not smoke a great deal. Previous history of PCI with stent placement. History of CHF. History of diabetes mellitus. History of hypertension. History of hyperlipidemia. Prior history of myocardial infarction. Stage III chronic kidney disease. AICD placement. Multiple other medical problems and comorbidities. Plan: Plan dated 03/28/2022. The patient is seen in the emergency department. She's currently on IV heparin. I suspect mostly for respiratory issues related to fluid overload. The patient is currently on albuterol sulfate and ipratropium bromide, 4 times a day and when necessary. We can stop the formoterol and budesonide. We can also stop the Solu-Medrol. Troponin was 3.440, and N-terminal proBNP was 3450. Additional recommendations and suggestions are forthcoming. Prognosis is guarded. Time with Patient: Greater than 30
[2022-03-28 16:34] LABS: Glucose,Whole Blood 286 mg/dL (70-110)
[2022-03-28] MEDS: ACETAMINOPHEN TAB 325 MG TAB PO PRN (17:15)
[2022-03-28] MEDS: FUROSEMIDE 10 MG/ML 4 ML VIAL IV SCH (17:16)
[2022-03-28] MEDS: HYDROcodone/APAP 5-325MG 1 EACH TAB PO PRN (18:39)
[2022-03-28 19:29] LABS: Glucose,Whole Blood 223 mg/dL (70-110)
[2022-03-28] MEDS ORDERED: FORMOTEROL FUMARATE 20 MCG/2 ML NEBU INHALATION SCH (20:00)
[2022-03-28] MEDS ORDERED: BUDESONIDE 1 MG/2 ML NEBU INHALATION SCH (20:00)
[2022-03-28 20:32] LABS: Glucose,Whole Blood 185 mg/dL (70-110)
[2022-03-28] MEDS ORDERED: methylPREDNISolone SOD SUCCI 40 MG/ML 1 ML VIAL IV SCH (21:00)
[2022-03-28] MEDS: GABAPENTIN 300 MG CAP PO SCH (21:09)
[2022-03-28] MEDS: CYCLOBENZAPRINE 10 MG TAB PO SCH (21:09)
[2022-03-28] MEDS: ALPRAZolam 0.25 MG TAB PO SCH (21:09)
[2022-03-28] MEDS: cilostazoL 100 MG TAB PO SCH (21:10)
[2022-03-28 21:32] LABS: Glucose,Whole Blood 195 mg/dL (70-110)
[2022-03-28 22:30] LABS: Glucose,Whole Blood 167 mg/dL (70-110)
--- NOTE | 2022-03-28 22:44 | CONS ---
CONSULTATION HISTORY OF PRESENT ILLNESS: Dodie is a 67-year-old lady with history of coronary artery disease, ischemic cardiomyopathy status post AICD, diabetes, dyslipidemia, who presented to hospital with shortness of breath and not feeling well of several days' duration. She does not have any chest pain and the shortness of breath has worsened over the last 24 hours and she comes in to hospital. At the time of my evaluation, she appears comfortable at rest and is free of significant symptoms. EKG shows sinus rhythm, poor R-wave progression, and nonspecific ST-T wave changes. She had troponins elevated at 0.1 and 0.5. She has renal insufficiency with a creatinine of 1.5 and her serum potassium was 6 on her initial presentation. Chest x-ray showed mild pulmonary congestion and her BNP is elevated at 3450. Clinical presentation is consistent with acute exacerbation of chronic systolic heart failure and mild non-ST segment elevation MT. The patient is currently being treated with intravenous Lasix and heparin. We will obtain a 2D echo and decide on further course of action. PAST MEDICAL HISTORY: Significant for coronary artery disease, ischemic cardiomyopathy and chronic heart failure along with diabetes, hypertension, and dyslipidemia. CURRENT MEDICATIONS: 1. Insulin. 2. . 3. K-Dur. 4. Toprol-XL. 5. Lasix. 6. Zetia. 7. Flexeril. 8. Plavix. 9. Xanax. ALLERGIES: Penicillin, atorvastatin, and Demerol. FAMILY HISTORY: Negative for premature coronary artery disease. SOCIAL HISTORY: Negative for current smoking, EtOH abuse, or drug abuse. REVIEW OF SYSTEMS: HEENT: Unremarkable. CARDIAC: As described above. RESPIRATORY: As described above. GI: Negative. GENITOURINARY: Negative. ALLERGY/IMMUNOLOGY: Negative. SKIN: Negative. MUSCULOSKELETAL: As described above. PSYCHOSOCIAL: Negative. DERM: Negative. CONSTITUTIONAL: Significant for fatigue, tiredness, and not feeling well. Rest of the system review is not relevant. PHYSICAL EXAMINATION: VITAL SIGNS: Heart rate is slightly elevated at 103 beats per minute, blood pressure is 139/82, respiratory rate is 18, and O2 saturation is 97% on room air. NECK : There is no jugular venous distention. Carotid upstroke is diminished. There is no bruit. CHEST: Reveals good air entry bilaterally. HEART: Reveals first and second heart sounds and a systolic murmur at the left lower sternal border. ABDOMEN: Soft. EXTREMITIES: Did not reveal any edema. Peripheral pulses are felt. LABORATORY DATA: Labs showed a potassium has come down to 4.5, creatinine is 1.49, hemoglobin is 11.5. ASSESSMENT: Acute non-ST segment elevation myocardial infarction, acute exacerbation of chronic systolic heart failure, ischemic cardiomyopathy, status post AICD. PLAN: The patient will be treated with intravenous heparin and IV Lasix. I will obtain a 2D echo in the morning. MMROSEL / SERGION: [id number] /
--- NOTE | 2022-03-28 23:32 | HP ---
HISTORY AND PHYSICAL CHIEF COMPLAINT: Shortness of breath. HISTORY OF PRESENT ILLNESS: This is a 67-year-old woman with a past medical history of multiple medical problems, asthma, history of diabetes mellitus, CHF, being followed by Dr. Levi in the outpatient setting, complaining of increasing shortness of breath. The patient came to [facility] and was admitted for evaluation. Blood sugars also found to be more than 500. The urine ketone is negative at this time. Acetone is pending. After 20 units IV insulin, the blood sugar is showing a downward trend. There is no history of any fever, rigors, or chills at this time. The troponin is also slightly elevated at 0.553. PAST MEDICAL HISTORY: Reviewed, include asthma, CHF. Other history, the whole chart is reviewed. HOME MEDICATIONS: Reviewed include insulin. Dose and rest of medications reviewed. ALLERGIES: Reviewed include penicillin. FAMILY HISTORY: History of diabetes mellitus. SOCIAL HISTORY: Previous history of smoking. REVIEW OF SYSTEMS: A 14-point review of systems is negative except as mentioned earlier. PHYSICAL EXAMINATION: VITAL SIGNS: Pulse is 105, blood pressure 130/64, respirations 24. HEENT: Conjunctivae normal. NECK: No JVD. CARDIOVASCULAR: S1, S2 muffled. RESPIRATIONS: Bilateral scattered rhonchi and crackles. Expiratory wheezing also present. ABDOMEN: Soft, obese. LEGS: No edema. No swelling. NERVOUS SYSTEM: No focal deficits. SKIN: No ulcer, rash, bleeding. JOINTS: No active deforming arthropathy. LYMPHATICS: No lymphadenopathy. LABS: Reviewed. Chest x-ray reviewed personally. ASSESSMENT: 1. Shortness of breath multifactorial with possibly congestive heart failure acute exacerbation, as well as asthma acute exacerbation. 2. Diabetes mellitus, type 2 with hyperglycemia. 3. Troponin elevated up to 0.553 possibly acute scu-SH-yzkhfrn-elevation myocardial infarction. 4. History of asthma. 5. Fibromyalgia. 6. Hypertension. 7. Hyperlipidemia. 8. Multiple medical issues. RECOMMENDATIONS AND DISCUSSION: This is a 67-year-old woman who presented with multiple complex medical issues. We will monitor the patient closely. I would recommend IV insulin drip at this time at 5 units/hour and continue to monitor. Otherwise, I would initiate intravenous steroids, bronchodilators, and intravenous diuretics also. We will consult Cardiology and Pulmonology. The overall prognosis is extremely guarded. Further recommendations to follow. Home medication will be resumed once they are confirmed. Discussed with the patient. Further recommendations to follow. Dr. Levi will follow tomorrow. ALTON / SERGION: [id number] /
[2022-03-28 23:33] LABS: Glucose,Whole Blood 128 mg/dL (70-110)
[2022-03-29 00:28] LABS: Glucose,Whole Blood 151 mg/dL (70-110)
[2022-03-29 01:31] LABS: Glucose,Whole Blood 176 mg/dL (70-110)
[2022-03-29 02:28] LABS: Glucose,Whole Blood 175 mg/dL (70-110)
[2022-03-29 03:32] LABS: Glucose,Whole Blood 133 mg/dL (70-110)
[2022-03-29 04:30] LABS: Glucose,Whole Blood 150 mg/dL (70-110)
[2022-03-29 06:29] LABS: Glucose,Whole Blood 161 mg/dL (70-110)
[2022-03-29] MEDS: FUROSEMIDE 10 MG/ML 4 ML VIAL IV SCH (06:53)
[2022-03-29] MEDS: PANTOPRAZOLE 40 MG TABLET PO SCH (06:58)
[2022-03-29 08:31] LABS: Glucose,Whole Blood 123 mg/dL (70-110)
[2022-03-29] MEDS: cilostazoL 100 MG TAB PO SCH ×2 (09:17→21:14)
[2022-03-29] MEDS: CLOPIDOGREL 75 MG TAB PO SCH (09:17)
[2022-03-29] MEDS: ASPIRIN 81 MG PO SCH (09:17)
[2022-03-29] MEDS: FERROUS SULFATE 325 MG TAB PO SCH (09:17)
[2022-03-29] MEDS: ESCITALOPRAM 20 MG TAB PO SCH (09:17)
[2022-03-29] MEDS: EZETIMIBE 10 MG TAB PO SCH (09:17)
[2022-03-29] MEDS: METOPROLOL SUCCINATE (ER) 50 MG TAB.ER.24H PO SCH (09:18)
[2022-03-29] MEDS: POTASSIUM CHLORIDE ER 10 MEQ TAB.ER.PRT PO SCH (09:18)
[2022-03-29] MEDS: IPRATROPIUM-ALBUTEROL 3 ML NEB INHALATION SCH ×5 (09:41→21:37)
[2022-03-29 09:53] LABS: Basophils % (A) 0 %; Eosinophils % (A) 0 %; HCT 33.3 % (34.0-46.0); HGB 10.6 gm/dL (11.4-16.0); Hypochromasia Moderate; Lymphocytes # (A) 1.4 k/uL (1.0-4.8); Lymphocytes % (A) 8 %; MCH 26.6 pg (25.0-35.0); MCHC 31.7 g/dL (31.0-37.0); MCV 84.1 fL (80.0-100.0); Mean Platelet Volume 9.2; Monocytes # (A) 0.5 k/uL (0-1.0); Monocytes % (A) 3 %; Neutrophils % (A) 89 %; Platelet Count 242 k/uL (150-450); RBC 3.96 m/uL (3.80-5.40); RDW 15.6 % (11.5-15.5)
[2022-03-29 10:05] LABS: Prothrombin Time 10.5 sec (9.0-12.0)
[2022-03-29 10:38] LABS: Glucose,Whole Blood 133 mg/dL (70-110)
--- NOTE | 2022-03-29 11:20 | P.PN ---
Subjective HISTORY OF PRESENTING ILLNESS This is a pleasant 67-year-old female patient with past medical history significant for coronary artery disease s/p PCI mid RCA 02/2016, nonischemic cardiomyopathy and status post AICD, peripheral artery disease s/p stenting of proximal right anterior tibial artery, hypertension,type 2 diabetes, and dyslipidemia. She follows in the office with Dr. Nagel. We are asked to see in consultation for CHF and elevated troponin. She presented to the emergency room complaining of shortness of breath and generalized fatigue. DIAGNOSTICS: Last heart catheterization was performed in 04/2016 and that revealed mild nonobstructive disease involving the right coronary artery with chronic total occlusion of the left circumflex and left anterior descending artery and both hughes by collateral. Echocardiogram in 2019 revealed an EF of 4550 percent 03/29/2022 Patient seen and examined at bedside, no distress. She continues to have some shortness of breath. Her breathing has improved. She continues to be on IV Lasix. Troponins increased to 3.4. She denies any chest pain. Labs are pending. PHYSICAL EXAMINATION Blood pressure 107/52, heart rate 80, afebrile, saturations 99% on 2 L nasal cannula CONSTITUTIONAL: No apparent distress. HEENT: Head is normocephalic. Pupils are equal, round. Sclerae anicteric. Mucous membranes of the mouth are moist. No JVD. CHEST EXAMINATION: Lungs are mild crackles in the bases bilaterally to auscultation. No chest wall tenderness is noted on palpation or with deep breath ing. HEART EXAMINATION: Regular rate and rhythm. S1, S2 heard. No murmurs, gallops or rub. ABDOMEN: Soft, nontender. Positive bowel sounds. EXTREMITIES: 2+ peripheral pulses, no lower extremity edema and no calf tenderness. NEUROLOGIC EXAMINATION: Patient is awake, alert and oriented x3. ASSESSMENT NSTEMI Coronary artery disease s/p PCI mid RCA 02/2016, and known chronic total occlusion of the left circumflex and left anterior descending artery and both hughes by collaterals Nonischemic cardiomyopathy and status post AICD Peripheral artery disease s/p stenting of proximal right anterior tibial artery Hypertension Type 2 diabetes Dyslipidemia PLAN Obtain 2D echocardiogram and doppler study to assess cardiac structure and function. Continue IV Heparin Decrease IV Lasix 40mg Daily Continue aspirin, statin, Plavix, Zetia, metoprolol succinate Monitor renal function Plan for cardiac catheterization with Dr. Steen on 03/31/2022, patient is agreeable I have discussed the risks, benefits and alternative therapies for the above- mentioned procedure and for both sedation/analgesia as well as necessary blood product administration, if indicated, as they pertain to this patient. The patient has indicated understanding and acceptance of the risks and procedures discussed. Questions have been answered appropriately and she is agreeable to move forward with the above-stated procedure. Further recommendations based on clinical course Nurse practitioner note has been reviewed by physician. Signing provider agrees with the documented findings, assessment, and plan of care. Objective - Vital Signs Vital signs: Vital Signs Temp 97.5 F L 03/29/22 04:00 Pulse 76 03/29/22 04:00 Resp 14 03/29/22 04:00 BP 110/68 03/29/22 04:00 Pulse Ox 97 03/29/22 04:00 FiO2 Intake & Output 03/28/22 03/29/22 03/29/22 18:59 06:59 18:59 Intake Total 1080 252.502 Output Total 910 Balance 1080 -657.498 Weight 79.379 kg 91.5 kg Intake: Intake, IV Titration 252.502 Amount Heparin Sod,Pork in 0.45% 176.453 NaCl 25,000 unit In 0.45 % NaCl 1 250ml.bag @ 12 UNITS/KG/HR 9.525 mls/hr IV .Q24H MANDY Rx#: [id number] Insulin Regular 100 unit 76.049 In Sodium Chloride 0.9% 100 ml @ Titrate IV .Q0M MANDY Rx#:[id number] Oral 1080 Output: Urine 910 Other: Voiding Method External Catheter External Catheter - Labs CBC & Chem 7: 03/29/22 09:17 03/28/22 09:05 Labs: Abnormal Lab Results - Last 24 Hours (Table) 03/28/22 03/28/22 03/28/22 Range/Units 09:05 10:27 11:23 APTT (22.0-30.0) sec Sodium 136 L (137-145) mmol/L Chloride 108 H (98-107) mmol/L Carbon Dioxide 19 L (22-30) mmol/L BUN 28 H (7-17) mg/dL Creatinine 1.49 H (0.52-1.04) mg/dL Glucose 401 H (74-99) mg/dL POC Glucose (mg/dL) 539 H (70-110) mg/dL Troponin I (0.000-0.034) ng/mL Urine Protein Trace H (Negative) Urine Glucose (UA) 4+ H (Negative) Ur Leukocyte Esterase Trace H (Negative) Urine Mucus Rare H (None) /hpf Urine Yeast (Budding) Many H (None) /hpf 03/28/22 03/28/22 03/28/22 Range/Units 11:33 12:40 13:54 APTT 43.8 H (22.0-30.0) sec Sodium (137-145) mmol/L Chloride (98-107) mmol/L Carbon Dioxide (22-30) mmol/L BUN (7-17) mg/dL Creatinine (0.52-1.04) mg/dL Glucose (74-99) mg/dL POC Glucose (mg/dL) 340 H (70-110) mg/dL Troponin I 0.553 H* (0.000-0.034) ng/mL Urine Protein (Negative) Urine Glucose (UA) (Negative) Ur Leukocyte Esterase (Negative) Urine Mucus (None) /hpf Urine Yeast (Budding) (None) /hpf 03/28/22 03/28/22 03/28/22 Range/Units 13:54 14:01 16:32 APTT (22.0-30.0) sec Sodium (137-145) mmol/L Chloride (98-107) mmol/L Carbon Dioxide (22-30) mmol/L BUN (7-17) mg/dL Creatinine (0.52-1.04) mg/dL Glucose (74-99) mg/dL POC Glucose (mg/dL) 321 H 286 H (70-110) mg/dL Troponin I 3.440 H* (0.000-0.034) ng/mL Urine Protein (Negative) Urine Glucose (UA) (Negative) Ur Leukocyte Esterase (Negative) Urine Mucus (None) /hpf Urine Yeast (Budding) (None) /hpf 03/28/22 03/28/22 03/28/22 Range/Units 19:27 19:38 20:30 APTT 41.8 H (22.0-30.0) sec Sodium (137-145) mmol/L Chloride (98-107) mmol/L Carbon Dioxide (22-30) mmol/L BUN (7-17) mg/dL Creatinine (0.52-1.04) mg/dL Glucose (74-99) mg/dL POC Glucose (mg/dL) 223 H 185 H (70-110) mg/dL Troponin I (0.000-0.034) ng/mL Urine Protein (Negative) Urine Glucose (UA) (Negative) Ur Leukocyte Esterase (Negative) Urine Mucus (None) /hpf Urine Yeast (Budding) (None) /hpf 03/28/22 03/28/22 03/28/22 Range/Units 21:30 22:28 23:31 APTT (22.0-30.0) sec Sodium (137-145) mmol/L Chloride (98-107) mmol/L Carbon Dioxide (22-30) mmol/L BUN (7-17) mg/dL Creatinine (0.52-1.04) mg/dL Glucose (74-99) mg/dL POC Glucose (mg/dL) 195 H 167 H 128 H (70-110) mg/dL Troponin I (0.000-0.034) ng/mL Urine Protein (Negative) Urine Glucose (UA) (Negative) Ur Leukocyte Esterase (Negative) Urine Mucus (None) /hpf Urine Yeast (Budding) (None) /hpf 03/29/22 03/29/22 03/29/22 Range/Units 00:27 01:04 01:29 APTT 51.0 H (22.0-30.0) sec Sodium (137-145) mmol/L Chloride (98-107) mmol/L Carbon Dioxide (22-30) mmol/L BUN (7-17) mg/dL Creatinine (0.52-1.04) mg/dL Glucose (74-99) mg/dL POC Glucose (mg/dL) 151 H 176 H (70-110) mg/dL Troponin I (0.000-0.034) ng/mL Urine Protein (Negative) Urine Glucose (UA) (Negative) Ur Leukocyte Esterase (Negative) Urine Mucus (None) /hpf Urine Yeast (Budding) (None) /hpf 03/29/22 03/29/22 03/29/22 Range/Units 02:26 03:27 04:28 APTT (22.0-30.0) sec Sodium (137-145) mmol/L Chloride (98-107) mmol/L Carbon Dioxide (22-30) mmol/L BUN (7-17) mg/dL Creatinine (0.52-1.04) mg/dL Glucose (74-99) mg/dL POC Glucose (mg/dL) 175 H 133 H 150 H (70-110) mg/dL Troponin I (0.000-0.034) ng/mL Urine Protein (Negative) Urine Glucose (UA) (Negative) Ur Leukocyte Esterase (Negative) Urine Mucus (None) /hpf Urine Yeast (Budding) (None) /hpf 03/29/22 Range/Units 06:28 APTT (22.0-30.0) sec Sodium (137-145) mmol/L Chloride (98-107) mmol/L Carbon Dioxide (22-30) mmol/L BUN (7-17) mg/dL Creatinine (0.52-1.04) mg/dL Glucose (74-99) mg/dL POC Glucose (mg/dL) 161 H (70-110) mg/dL Troponin I (0.000-0.034) ng/mL Urine Protein (Negative) Urine Glucose (UA) (Negative) Ur Leukocyte Esterase (Negative) Urine Mucus (None) /hpf Urine Yeast (Budding) (None) /hpf
[2022-03-29] MEDS ORDERED: DEXTROSE 50% SYRINGE 50 ML IVP PRN ×2 (11:45)
[2022-03-29 11:47] LABS: Potassium 5.2 mmol/L (3.5-5.1)
[2022-03-29 12:05] LABS: Glucose,Whole Blood 169 mg/dL (70-110)
[2022-03-29] MEDS: INSULIN ASPART (NovoLOG) 100 UNIT/ML VIAL SQ SCH ×3 (12:21→21:15)
[2022-03-29] MEDS: HEPARIN SOD,PORK IN 0.45% NACL 25,000 UNIT in 0.45% NACL 1 250ML.BAG IV SCH (12:22)
[2022-03-29] MEDS: INSULIN DETEMIR (LEVEMIR) 100 UNIT/ML SYR SQ SCH (12:26)
--- NOTE | 2022-03-29 12:48 | P.PN ---
Subjective Progress Note Date: 03/29/22 This is 67-year-old female admitted with acute CHF exacerbation, STEMI, hyperkalemia and multiple other medical issues. Troponins increased to 3.4.Maintained on heparin drip. Echo recently completed a bedside. Evaluated by cardiology, with plan for cardiac catheterization tentatively scheduled for Tuesday. Denies any chest pain, palpitations. Positive cough, shortness of breath improved, currently maintaining O2 sats in the 90s on 2 L nasal cannula proBNP 3440. Recent potassium 4.5, creatinine 1.49, magnesium 2.4. Objective - Vital Signs Vital signs: Vital Signs Temp 97.5 F L 03/29/22 04:00 Pulse 80 03/29/22 09:52 Resp 16 03/29/22 09:14 BP 107/52 03/29/22 09:14 Pulse Ox 99 03/29/22 09:14 FiO2 Intake & Output 03/28/22 03/29/22 03/29/22 18:59 06:59 18:59 Intake Total 1080 252.502 0 Output Total 910 800 Balance 1080 -657.498 -800 Weight 79.379 kg 91.5 kg 89 kg Intake: Intake, IV Titration 252.502 0 Amount Heparin Sod,Pork in 0.45% 176.453 NaCl 25,000 unit In 0.45 % NaCl 1 250ml.bag @ 12 UNITS/KG/HR 9.525 mls/hr IV .Q24H MANDY Rx#: [id number] Insulin Regular 100 unit 76.049 0 In Sodium Chloride 0.9% 100 ml @ Titrate IV .Q0M MANDY Rx#:[id number] Oral 1080 Output: Urine 910 800 Other: Voiding Method External Catheter External Catheter External Catheter - Exam PHYSICAL EXAM: VITAL SIGNS: [As above] GENERAL: Being up in bed, no acute distress, conversing without shortness of breath HEENT: Conjunctivae normal. eyes normal. NECK: Supple, No JVD. No thyroid enlargement. No LNs CARDIOVASCULAR: S1, S2 regular. No murmur RESPIRATION: Breath sounds diminished in the bases. Fine bibasilar crackles. No bronchial breathing. ABDOMEN: Soft, nontender . No guarding. no masses palpable. No ascites, No hepatosplenomegaly.Bowel sounds heard. LEGS: No edema. no swelling PSYCHIATRY: Alert and oriented X3, mood and affect normal. NERVOUS SYSTEM: Cranial N 2-12 grossly normal. No focal deficits. Strength and sensation grossly intact. Skin: Warm and dry, no rash - Labs CBC & Chem 7: 03/29/22 09:17 03/29/22 09:17 Labs: Abnormal Lab Results - Last 24 Hours (Table) 03/28/22 03/28/22 03/28/22 Range/Units 11:23 11:33 12:40 WBC (3.8-10.6) k/uL Hgb (11.4-16.0) gm/dL Hct (34.0-46.0) % RDW (11.5-15.5) % Neutrophils # (1.3-7.7) k/uL APTT (22.0-30.0) sec POC Glucose (mg/dL) 340 H (70-110) mg/dL Troponin I 0.553 H* (0.000-0.034) ng/mL Urine Protein Trace H (Negative) Urine Glucose (UA) 4+ H (Negative) Ur Leukocyte Esterase Trace H (Negative) Urine Mucus Rare H (None) /hpf Urine Yeast (Budding) Many H (None) /hpf 03/28/22 03/28/22 03/28/22 Range/Units 13:54 13:54 14:01 WBC (3.8-10.6) k/uL Hgb (11.4-16.0) gm/dL Hct (34.0-46.0) % RDW (11.5-15.5) % Neutrophils # (1.3-7.7) k/uL APTT 43.8 H (22.0-30.0) sec POC Glucose (mg/dL) 321 H (70-110) mg/dL Troponin I 3.440 H* (0.000-0.034) ng/mL Urine Protein (Negative) Urine Glucose (UA) (Negative) Ur Leukocyte Esterase (Negative) Urine Mucus (None) /hpf Urine Yeast (Budding) (None) /hpf 03/28/22 03/28/22 03/28/22 Range/Units 16:32 19:27 19:38 WBC (3.8-10.6) k/uL Hgb (11.4-16.0) gm/dL Hct (34.0-46.0) % RDW (11.5-15.5) % Neutrophils # (1.3-7.7) k/uL APTT 41.8 H (22.0-30.0) sec POC Glucose (mg/dL) 286 H 223 H (70-110) mg/dL Troponin I (0.000-0.034) ng/mL Urine Protein (Negative) Urine Glucose (UA) (Negative) Ur Leukocyte Esterase (Negative) Urine Mucus (None) /hpf Urine Yeast (Budding) (None) /hpf 03/28/22 03/28/22 03/28/22 Range/Units 20:30 21:30 22:28 WBC (3.8-10.6) k/uL Hgb (11.4-16.0) gm/dL Hct (34.0-46.0) % RDW (11.5-15.5) % Neutrophils # (1.3-7.7) k/uL APTT (22.0-30.0) sec POC Glucose (mg/dL) 185 H 195 H 167 H (70-110) mg/dL Troponin I (0.000-0.034) ng/mL Urine Protein (Negative) Urine Glucose (UA) (Negative) Ur Leukocyte Esterase (Negative) Urine Mucus (None) /hpf Urine Yeast (Budding) (None) /hpf 03/28/22 03/29/22 03/29/22 Range/Units 23:31 00:27 01:04 WBC (3.8-10.6) k/uL Hgb (11.4-16.0) gm/dL Hct (34.0-46.0) % RDW (11.5-15.5) % Neutrophils # (1.3-7.7) k/uL APTT 51.0 H (22.0-30.0) sec POC Glucose (mg/dL) 128 H 151 H (70-110) mg/dL Troponin I (0.000-0.034) ng/mL Urine Protein (Negative) Urine Glucose (UA) (Negative) Ur Leukocyte Esterase (Negative) Urine Mucus (None) /hpf Urine Yeast (Budding) (None) /hpf 03/29/22 03/29/22 03/29/22 Range/Units 01:29 02:26 03:27 WBC (3.8-10.6) k/uL Hgb (11.4-16.0) gm/dL Hct (34.0-46.0) % RDW (11.5-15.5) % Neutrophils # (1.3-7.7) k/uL APTT (22.0-30.0) sec POC Glucose (mg/dL) 176 H 175 H 133 H (70-110) mg/dL Troponin I (0.000-0.034) ng/mL Urine Protein (Negative) Urine Glucose (UA) (Negative) Ur Leukocyte Esterase (Negative) Urine Mucus (None) /hpf Urine Yeast (Budding) (None) /hpf 03/29/22 03/29/22 03/29/22 Range/Units 04:28 06:28 08:29 WBC (3.8-10.6) k/uL Hgb (11.4-16.0) gm/dL Hct (34.0-46.0) % RDW (11.5-15.5) % Neutrophils # (1.3-7.7) k/uL APTT (22.0-30.0) sec POC Glucose (mg/dL) 150 H 161 H 123 H (70-110) mg/dL Troponin I (0.000-0.034) ng/mL Urine Protein (Negative) Urine Glucose (UA) (Negative) Ur Leukocyte Esterase (Negative) Urine Mucus (None) /hpf Urine Yeast (Budding) (None) /hpf 03/29/22 03/29/22 03/29/22 Range/Units 09:17 09:17 10:36 WBC 18.0 H (3.8-10.6) k/uL Hgb 10.6 L (11.4-16.0) gm/dL Hct 33.3 L (34.0-46.0) % RDW 15.6 H (11.5-15.5) % Neutrophils # 16.0 H (1.3-7.7) k/uL APTT 52.0 H (22.0-30.0) sec POC Glucose (mg/dL) 133 H (70-110) mg/dL Troponin I (0.000-0.034) ng/mL Urine Protein (Negative) Urine Glucose (UA) (Negative) Ur Leukocyte Esterase (Negative) Urine Mucus (None) /hpf Urine Yeast (Budding) (None) /hpf Assessment and Plan Assessment: Shortness of breath, multifactorial, secondary to NSTEMI , possibly CHF exacerbation. Hyperkalemia, resolved Diabetes mellitus type 2, hyperglycemic on admission, status post insulin drip, A1c 8.8% on 05/14/2021, current A1c pending, Nonischemic cardiomyopathy , status post AICD placement. Coronary artery disease with stent placement of RCA, known chronic total occlusion of the LAD and circumflex PAD Hypertension. Hyperlipidemia. Peripheral neuropathy secondary to diabetes mellitus. Bilateral foot neuropathic secondary to diabetes mellitus. Chronic kidney disease stage III. Baseline 1.6-1.8 Anemia suspect secondary to chronic kidney disease. Gait dysfunction, mostly wheelchair-bound Morbid obesity, BMI 32.7 Plan: Continue on current medication regime ,monitoring and symptomatic treatment. Anticoagulated on IV heparin drip. Maintained on beta ezequiel, Plavix, aspirin, statin. Close monitoring of renal function. Transitioned off of insulin drip, long acting insulin and sliding scale initiated, close monitoring of Accu-Cheks. A1c ordered. Cardiology discussing cardiac catheterization for 03/31/2022. The impression and plan of care has been dictated as directed. : I performed a history and examination of this patient, discussed the same with the dictator. I agree with the dictator's note ,documented as a scribe. Any additional findings or plans will be noted.
[2022-03-29 13:48] LABS: Glucose,Whole Blood 235 mg/dL (70-110)
[2022-03-29] MEDS: HYDROcodone/APAP 5-325MG 1 EACH TAB PO PRN (13:48)
--- NOTE | 2022-03-29 14:42 | P.PN ---
Subjective Progress Note Date: 03/29/22 This is a 67-year-old male patient was being seen for a follow-up. We saw this patient in consultation for shortness of breath. The patient is known to have CAD and the patient has undergone previous coronary intervention and stenting. He is also known to have congestion heart failure. He has an AICD in place. His other comorbid conditions include bronchial asthma, chronic stage III kidney disease her creatinine is at 1.7. The patient also has history of fibromyalgia, diabetes mellitus, acid reflux, hyperlipidemia as comorbid conditions. The patient is known to have CAD. In this current admission, the troponin peaked at 3.44. The chest x-ray was consistent with CHF. The patient is currently on IV heparin. PTT is therapeutic for now. The patient is also on Lasix 40 mg IV every 24 hours for diuresis. The patient is on aspirin and Plavix. The patient is on metoprolol 50 mg by mouth daily. Echocardiogram is still pending for now patient is resting comfortably in bed at 2 L/m nasal cannula. The patient is awaiting a cardiology evaluation. EKG showed normal evidence of any ST segment elevation. ProBNP level was elevated at 3450. Objective - Vital Signs Vital signs: Vital Signs Temp 97.5 F L 03/29/22 04:00 Pulse 105 H 03/29/22 13:18 Resp 17 03/29/22 12:00 BP 96/53 03/29/22 12:00 Pulse Ox 95 03/29/22 12:00 FiO2 Intake & Output 03/28/22 03/29/22 03/29/22 18:59 06:59 18:59 Intake Total 1080 252.502 73.547 Output Total 910 800 Balance 1080 -657.498 -726.453 Weight 79.379 kg 91.5 kg 89 kg Intake: Intake, IV Titration 252.502 73.547 Amount Heparin Sod,Pork in 0.45% 176.453 73.547 NaCl 25,000 unit In 0.45 % NaCl 1 250ml.bag @ 12 UNITS/KG/HR 9.525 mls/hr IV .Q24H [facility]Y Rx#: [id number] Insulin Regular 100 unit 76.049 0 In Sodium Chloride 0.9% 100 ml @ Titrate IV .Q0M [facility]Y Rx#:[id number] Oral 1080 Output: Urine 910 800 Other: Voiding Method External Catheter External Catheter External Catheter - Exam No acute distress, oriented 3. Currently on RA oxygen. Saturations 98%. HEENT examination is grossly unremarkable. Neck supple. Full range of motion. No adenopathy thyromegaly or neck vein distention. Cardiovascular examination reveals regular rhythm rate. S1-S2 normal. No S3 or S4. No discernible murmur noted. Heart sounds are distant. Heart rate 90 bpm. Lungs reveal bibasilar crackles. Minimal rhonchi. No wheezes. Breath sounds equal bilaterally. 2 L saturation is 98%. Abdomen soft bowel sounds are heard. No masses or tenderness. Extremities are intact. No cyanosis or clubbing. Trace edema. Skin is without rash or lesion. Neurologic examination is brief but nonfocal. - Labs CBC & Chem 7: 03/29/22 09:17 03/29/22 09:17 Labs: Abnormal Lab Results - Last 24 Hours (Table) 03/28/22 03/28/22 03/28/22 Range/Units 13:54 13:54 16:32 WBC (3.8-10.6) k/uL Hgb (11.4-16.0) gm/dL Hct (34.0-46.0) % RDW (11.5-15.5) % Neutrophils # (1.3-7.7) k/uL APTT 43.8 H (22.0-30.0) sec Potassium (3.5-5.1) mmol/L BUN (7-17) mg/dL Creatinine (0.52-1.04) mg/dL Glucose (74-99) mg/dL POC Glucose (mg/dL) 286 H (70-110) mg/dL Troponin I 3.440 H* (0.000-0.034) ng/mL 03/28/22 03/28/22 03/28/22 Range/Units 19:27 19:38 20:30 WBC (3.8-10.6) k/uL Hgb (11.4-16.0) gm/dL Hct (34.0-46.0) % RDW (11.5-15.5) % Neutrophils # (1.3-7.7) k/uL APTT 41.8 H (22.0-30.0) sec Potassium (3.5-5.1) mmol/L BUN (7-17) mg/dL Creatinine (0.52-1.04) mg/dL Glucose (74-99) mg/dL POC Glucose (mg/dL) 223 H 185 H (70-110) mg/dL Troponin I (0.000-0.034) ng/mL 03/28/22 03/28/22 03/28/22 Range/Units 21:30 22:28 23:31 WBC (3.8-10.6) k/uL Hgb (11.4-16.0) gm/dL Hct (34.0-46.0) % RDW (11.5-15.5) % Neutrophils # (1.3-7.7) k/uL APTT (22.0-30.0) sec Potassium (3.5-5.1) mmol/L BUN (7-17) mg/dL Creatinine (0.52-1.04) mg/dL Glucose (74-99) mg/dL POC Glucose (mg/dL) 195 H 167 H 128 H (70-110) mg/dL Troponin I (0.000-0.034) ng/mL 03/29/22 03/29/22 03/29/22 Range/Units 00:27 01:04 01:29 WBC (3.8-10.6) k/uL Hgb (11.4-16.0) gm/dL Hct (34.0-46.0) % RDW (11.5-15.5) % Neutrophils # (1.3-7.7) k/uL APTT 51.0 H (22.0-30.0) sec Potassium (3.5-5.1) mmol/L BUN (7-17) mg/dL Creatinine (0.52-1.04) mg/dL Glucose (74-99) mg/dL POC Glucose (mg/dL) 151 H 176 H (70-110) mg/dL Troponin I (0.000-0.034) ng/mL 03/29/22 03/29/22 03/29/22 Range/Units 02:26 03:27 04:28 WBC (3.8-10.6) k/uL Hgb (11.4-16.0) gm/dL Hct (34.0-46.0) % RDW (11.5-15.5) % Neutrophils # (1.3-7.7) k/uL APTT (22.0-30.0) sec Potassium (3.5-5.1) mmol/L BUN (7-17) mg/dL Creatinine (0.52-1.04) mg/dL Glucose (74-99) mg/dL POC Glucose (mg/dL) 175 H 133 H 150 H (70-110) mg/dL Troponin I (0.000-0.034) ng/mL 03/29/22 03/29/22 03/29/22 Range/Units 06:28 08:29 09:17 WBC 18.0 H (3.8-10.6) k/uL Hgb 10.6 L (11.4-16.0) gm/dL Hct 33.3 L (34.0-46.0) % RDW 15.6 H (11.5-15.5) % Neutrophils # 16.0 H (1.3-7.7) k/uL APTT (22.0-30.0) sec Potassium (3.5-5.1) mmol/L BUN (7-17) mg/dL Creatinine (0.52-1.04) mg/dL Glucose (74-99) mg/dL POC Glucose (mg/dL) 161 H 123 H (70-110) mg/dL Troponin I (0.000-0.034) ng/mL 03/29/22 03/29/22 03/29/22 Range/Units 09:17 09:17 10:36 WBC (3.8-10.6) k/uL Hgb (11.4-16.0) gm/dL Hct (34.0-46.0) % RDW (11.5-15.5) % Neutrophils # (1.3-7.7) k/uL APTT 52.0 H (22.0-30.0) sec Potassium 5.2 H (3.5-5.1) mmol/L BUN 33 H (7-17) mg/dL Creatinine 1.74 H (0.52-1.04) mg/dL Glucose 126 H (74-99) mg/dL POC Glucose (mg/dL) 133 H (70-110) mg/dL Troponin I (0.000-0.034) ng/mL 03/29/22 03/29/22 Range/Units 12:01 13:45 WBC (3.8-10.6) k/uL Hgb (11.4-16.0) gm/dL Hct (34.0-46.0) % RDW (11.5-15.5) % Neutrophils # (1.3-7.7) k/uL APTT (22.0-30.0) sec Potassium (3.5-5.1) mmol/L BUN (7-17) mg/dL Creatinine (0.52-1.04) mg/dL Glucose (74-99) mg/dL POC Glucose (mg/dL) 169 H 235 H (70-110) mg/dL Troponin I (0.000-0.034) ng/mL Assessment and Plan Plan: Assessment: Acute shortness of breath, most likely related to non-ST segment elevation m yocardial infarction, She was hypoxic respiratory failure and acute CHF. Clinically improving and the patient is currently on room air oxygen Vague history of COPD/asthma, although the patient smoked remotely, and did not smoke a great deal. Previous history of PCI with stent placement. History of CHF. History of diabetes mellitus. History of hypertension. History of hyperlipidemia. Prior history of myocardial infarction. Stage III chronic kidney disease. AICD placement. Multiple other medical problems and comorbidities. Plan: Start DuoNeb neb blotchiness on the clock Low-dose IV Solu-Medrol 40 mg 12 hours Continue IV Lasix Continue IV heparin Awaiting echocardiogram Monitor renal function Awaiting further recommendation from cardiology regarding further intervention.
[2022-03-29] MEDS ORDERED: methylPREDNISolone SOD SUCCI 40 MG/ML 1 ML VIAL IV SCH (16:00)
[2022-03-29 16:48] LABS: Glucose,Whole Blood 225 mg/dL (70-110)
--- NOTE | 2022-03-29 17:13 | CA ---
Transthoracic Echo Report Name: Dodie Zafar Age: 67 Gender: F : 1955 Exam Date: 03/29/2022 08:34 Exam Location: [facility] Ht (in): 62 Wt (lb): 201 Ordering Physician: Connie Navarro Attending/Referring Phys: Glass Sagger Coco Silveira RDCS Procedure CPT: Indications: nstemi Cardiac Hx: Technical Quality: Technically difficult study Contrast 1: Lumason Total Dose (mL): 4 Contrast 2: Total Dose (mL): MEASUREMENTS (Male / Female) Normal Values 2D ECHO LV Diastolic Diameter PLAX 4.8 cm 4.2 - 5.9 / 3.9 - 5.3 cm LV Systolic Diameter PLAX 4.3 cm IVS Diastolic Thickness 1.2 cm 0.6 - 1.0 / 0.6 - 0.9 cm LVPW Diastolic Thickness 1.6 cm 0.6 - 1.0 / 0.6 - 0.9 cm LV Relative Wall Thickness 0.6 RV Internal Dim ED PLAX 3.0 cm LA Systolic Diameter LX 4.3 cm 3.0 - 4.0 / 2.7 - 3.8 cm LA Volume 57.3 cm??? 18 - 58 / 22 - 52 cm??? M-MODE Aortic Root Diameter MM 2.8 cm LA Systolic Diameter MM 3.4 cm LA Ao Ratio MM 1.2 MV E Point Septal Separation 1.3 cm AV Cusp Separation MM 1.5 cm DOPPLER AV Peak Velocity 103.3 cm/s AV Peak Gradient 4.3 mmHg AV Mean Velocity 73.5 cm/s AV Mean Gradient 2.5 mmHg AV Velocity Time Integral 20.7 cm MV Area PHT 3.0 cm??? MR Peak Velocity 418.1 cm/s MR Peak Gradient 69.9 mmHg Mitral E Point Velocity 73.2 cm/s Mitral A Point Velocity 63.9 cm/s Mitral E to A Ratio 1.1 MV Deceleration Time 151.8 ms MV E' Velocity 3.7 cm/s Mitral E to MV E' Ratio 19.7 TR Peak Velocity 287.2 cm/s TR Peak Gradient 33.0 mmHg Right Ventricular Systolic Press 36.6 mmHg PV Peak Velocity 80.2 cm/s PV Peak Gradient 2.6 mmHg PV Mean Velocity 52.6 cm/s PV Mean Gradient 1.3 mmHg PV Velocity Time Integral 14.1 cm FINDINGS Left Ventricle Mildly increased septal wall thickness. Moderately reduced global left ventricular systolic function. Left ventricular ejection fraction is estimated at 20-25 %. Right Ventricle Normal right ventricular size and function. Mild pulmonary hypertension. Right Atrium Normal right atrial size. Left Atrium Mildly increased left atrial diameter. Mildly increased left atrial volume. Mildly increased left atrial area. Mitral Valve Structurally normal mitral valve. Mild mitral regurgitation. Aortic Valve Trileaflet aortic valve. Aortic valve sclerosis. Tricuspid Valve Structurally normal tricuspid valve. Pulmonic Valve Structurally normal pulmonic valve. Pericardium Normal pericardium. Aorta Normal size aortic root and proximal ascending aorta. CONCLUSIONS Left ventricular ejection fraction 20-25% Mildly increased left ventricular wall thickness RVSP 36 Mildly dilated left atrium Mild mitral regurgitation No pericardial effusion Previewed by: Dr. Klaus Navarro DO (Electronically Signed) Final Date: 29 March 2022 17:12
[2022-03-29 19:39] LABS: Glucose,Whole Blood 247 mg/dL (70-110)
[2022-03-29] MEDS: GABAPENTIN 300 MG CAP PO SCH (21:14)
[2022-03-29] MEDS: CYCLOBENZAPRINE 10 MG TAB PO SCH (21:14)
[2022-03-29] MEDS: ALPRAZolam 0.25 MG TAB PO SCH (21:14)
[2022-03-29] MEDS: methylPREDNISolone SOD SUCCI 40 MG/ML 1 ML VIAL IV SCH (21:15)
[2022-03-30] MEDS: NITROGLYCERIN SL TABS 0.4 MG TAB SUBLINGUAL PRN ×3 (00:18→06:04)
[2022-03-30 06:20] LABS: Glucose,Whole Blood 302 mg/dL (70-110)
[2022-03-30 06:28] LABS: Basophils % (A) 0 %; Eosinophils # (A) 0.1 k/uL (0-0.7); Eosinophils % (A) 1 %; HCT 31.4 % (34.0-46.0); HGB 10.3 gm/dL (11.4-16.0); Hypochromasia Moderate; Lymphocytes # (A) 0.7 k/uL (1.0-4.8); Lymphocytes % (A) 7 %; MCH 27.7 pg (25.0-35.0); MCV 84.1 fL (80.0-100.0); Mean Platelet Volume 8.6; Monocytes # (A) 0.2 k/uL (0-1.0); Monocytes % (A) 2 %; Neutrophils # (A) 8.4 k/uL (1.3-7.7); Neutrophils % (A) 90 %; Platelet Count 220 k/uL (150-450); RBC 3.73 m/uL (3.80-5.40); RDW 15.6 % (11.5-15.5); WBC 9.3 k/uL (3.8-10.6)
[2022-03-30] MEDS: INSULIN ASPART (NovoLOG) 100 UNIT/ML VIAL SQ SCH ×4 (06:30→21:28)
[2022-03-30] MEDS: PANTOPRAZOLE 40 MG TABLET PO SCH (06:30)
[2022-03-30 06:59] LABS: Calcium 8.4 mg/dL (8.4-10.2)
[2022-03-30] MEDS ORDERED: HEPARIN SODIUM,PORCINE 2,500 UNIT in SODIUM CHLORIDE 0.9% 250 ML IRRIGATION PRN (07:00)
[2022-03-30] MEDS ORDERED: HEPARIN SODIUM,PORCINE 10,000 UNIT in SODIUM CHLORIDE 0.9% 1,000 ML IRRIGATION PRN (07:00)
[2022-03-30] MEDS: IPRATROPIUM-ALBUTEROL 3 ML NEB INHALATION SCH ×4 (07:15→20:22)
[2022-03-30] MEDS: EZETIMIBE 10 MG TAB PO SCH (07:50)
[2022-03-30] MEDS: FERROUS SULFATE 325 MG TAB PO SCH (07:50)
[2022-03-30] MEDS: POTASSIUM CHLORIDE ER 10 MEQ TAB.ER.PRT PO SCH (07:50)
[2022-03-30] MEDS: CLOPIDOGREL 75 MG TAB PO SCH (07:50)
[2022-03-30] MEDS: ESCITALOPRAM 20 MG TAB PO SCH (07:50)
[2022-03-30] MEDS: METOPROLOL SUCCINATE (ER) 50 MG TAB.ER.24H PO SCH (07:50)
[2022-03-30] MEDS: ASPIRIN 81 MG PO SCH (07:50)
[2022-03-30] MEDS ORDERED: VERAPAMIL 2.5 MG/ML 2 ML AMP ONE (07:52)
[2022-03-30] MEDS ORDERED: ASPIRIN 325 MG TAB ONE (08:16)
[2022-03-30] MEDS ORDERED: ASPIRIN 325 MG TAB PO ONE (08:17)
[2022-03-30] MEDS ORDERED: LIDOCAINE 1% INJ 10MG/ML (30 ML VIAL-PF) SQ ONE (08:19)
[2022-03-30] MEDS ORDERED: MIDAZOLAM 2 MG/2 ML VIAL IV ONE (08:20)
[2022-03-30] MEDS ORDERED: HYDROmorphone 1 MG/ML 1 ML SYRINGE ONE (08:24)
[2022-03-30] MEDS ORDERED: HYDROmorphone 1 MG/ML 1 ML SYRINGE IVP ONE (08:26)
[2022-03-30] MEDS ORDERED: HEPARIN SODIUM 1,000 UN/ML (10ML VL) ONE (08:27)
[2022-03-30] MEDS: HEPARIN SODIUM 1,000 UN/ML (10ML VL) IV ONE ×2 (08:29→08:53)
[2022-03-30] MEDS ORDERED: SODIUM CHLORIDE 0.9% 1,000 ML IV ONE (08:34)
[2022-03-30] MEDS: HEPARIN SOD,PORK IN 0.45% NACL 25,000 UNIT in 0.45% NACL 1 250ML.BAG IV SCH (08:34)
[2022-03-30] MEDS ORDERED: CLOPIDOGREL 75 MG TAB ONE (08:35)
[2022-03-30] MEDS ORDERED: CLOPIDOGREL 75 MG TAB PO ONE (08:40)
[2022-03-30] MEDS ORDERED: IOPAMIDOL-370 125ML BTL INJ ONE (09:15)
[2022-03-30] MEDS ORDERED: ATROPINE SULFATE 0.1 MG/ML 10ML SYRINGE IV PRN (09:19)
[2022-03-30] MEDS ORDERED: NITROGLYCERIN SL TABS 0.4 MG TAB SUBLINGUAL PRN (09:19)
[2022-03-30] MEDS ORDERED: RX INFO: IV CONTRAST WAS GIVEN 1 EACH MISC MISCELLANE PRN (09:19)
[2022-03-30] MEDS ORDERED: ZOLPIDEM 5 MG TAB PO PRN (09:19)
[2022-03-30] MEDS ORDERED: SODIUM CHLORIDE 0.9% 1,000 ML in EMPTY BAG 1 BAG IV SCH (09:30)
--- NOTE | 2022-03-30 11:43 | P.PCN ---
Date of Procedure: 03/30/22 Operative Findings: Heart catheterization and percutaneous coronary intervention Following physician Leonardo Steen MD Procedure performed Selective right and left coronary angiogram Left heart catheterization Successful stenting of the distal right coronary artery using 3.0 x 18 mm Xience MARU with an excellent angiographic results Successful stenting of the mid right coronary artery using 3.5 x 33 mm Xience MARU with an excellent angiographic results Successful stenting of the proximal right coronary artery using 4.0 x 23 mm Xience MARU with an excellent angiographic results Intravascular ultrasound of the right coronary artery Selective right common femoral artery angiogram Ultrasound guided access of the right common femoral artery Indication Acute non-ST elevation myocardial infarction in this 67-year-old female patient who is known to have CAD with prior stenting of the RCA and known chronic total occlusion of the LCx and LAD Approach Right common femoral artery Complication None Level of sedation Moderate to sedation length of 54-minute Procedure description After obtaining informed consent the patient was brought to the cardiac Aviation Consultant. Right common femoral artery was cannulated using micropuncture technique under ultrasound guidance, the micropuncture wire passed easily then I placed a 6 English sheath. I did selective right and left coronary angiogram using JR4 and JL 4 catheters. Left heart catheterization was performed using pigtail catheter. After that I did intervene on the right coronary artery. Selective coronary angiogram The RCA Has critical diffuse disease and appears to be extremely calcified. The left main Has mild disease only. The LAD Is chronically occluded in the midportion with intermediate lesion involving the very proximal portion appears to be in the range of 50% The LCx Chronically occluded Hemodynamic The LVEDP was 30 mmHg with no significant gradient across aortic valve PCI of the RCA Anticoagulation was initiated using heparin with continuous ACT monitoring. Subsequently I did engage the RCA using JR4 guiding catheter. I did wired using a run-through wire. I did intravascular ultrasound of the RCA and that showed a diameter of 4 mm. Subsequently did balloon angioplasty using 3.0 mm balloon. Subsequently with adjunctive use of guide liner I was able to advance a 3.5 x 38 mm stent where the stent was positioned under fluoroscopic guidance and deployed under 18 anabel for 20 seconds. Proximally I deployed 4.0 x 23 mm another Xience drug-eluting stent where the stent was positioned again under fluoroscopy guidance and deployed under 20 anabel for 20 seconds. The following angiogram showed a tight lesion involving the very distal RCA. Attempting advancing stent using guide liner was unsuccessful but was successful after I did PTCA of the mi d and proximal RCA stent using 4 mm noncompliant balloon. The last stent distally was positioned under fluoroscopy guidance and was 3.0 x 18 mm stent where the stent again was positioned under fluoroscopy guidance and deployed under 12 anabel for 20 seconds. The final angiogram showed good angiographic results and the procedure was completed without any complication Conclusion 1. Critical disease involving the proximal and mid and distal RCA with thrombotic lesion and calcified vessel 2. Chronic total occlusion of the LAD which is a known finding from before 3. Chronic total occlusion of the LCx which is also a known finding from before 4. Severely elevated left-sided filling pressure with LVEDP of 30 mmHg Postprocedure management Dual antiplatelet therapy for at least 12 months using potent agent Aggressive cholesterol control Follow-up with the patient
[2022-03-30 11:57] LABS: Glucose,Whole Blood 275 mg/dL (70-110)
[2022-03-30 12:04] VITALS: BMI 32.6
[2022-03-30] MEDS: methylPREDNISolone SOD SUCCI 40 MG/ML 1 ML VIAL IV SCH (12:15)
[2022-03-30] MEDS: FUROSEMIDE 10 MG/ML 4 ML VIAL IV SCH (13:01)
[2022-03-30] MEDS: cilostazoL 100 MG TAB PO SCH ×2 (13:02→21:28)
[2022-03-30] MEDS: INSULIN DETEMIR (LEVEMIR) 100 UNIT/ML SYR SQ SCH (13:02)
--- NOTE | 2022-03-30 15:35 | P.PN ---
Subjective Progress Note Date: 03/30/22 This is 67-year-old female admitted with acute CHF exacerbation, STEMI, hyperkalemia and multiple other medical issues. Troponins increased to 3.4.Maintained on heparin drip. Echo recently completed a bedside. Evaluated by cardiology, with plan for cardiac catheterization tentatively scheduled for Tuesday. Denies any chest pain, palpitations. Positive cough, shortness of breath improved, currently maintaining O2 sats in the 90s on 2 L nasal cannula proBNP 3440. Recent potassium 4.5, creatinine 1.49, magnesium 2.4. 03/30/22 chest pain reoccurred during the night and earlier this morning. NPO, patient is going for cardiac catheterization this morning. Currently denies chest pain, palpitations or shortness of breath. Labs pending. Objective - Vital Signs Vital signs: Vital Signs Temp 97.7 F 03/30/22 04:00 Pulse 98 03/30/22 11:09 Resp 16 03/30/22 07:50 BP 106/61 03/30/22 10:34 Pulse Ox 98 03/30/22 10:34 FiO2 21 03/29/22 21:37 Intake & Output 03/29/22 03/30/22 03/30/22 18:59 06:59 18:59 Intake Total 73.547 100 Output Total 1100 250 Balance -1026.453 -250 100 Weight 89 kg Intake: IV 100 Intake, IV Titration 73.547 Amount Heparin Sod,Pork in 0.45% 73.547 NaCl 25,000 unit In 0.45 % NaCl 1 250ml.bag @ 12 UNITS/KG/HR 9.525 mls/hr IV .Q24H [facility] Rx#: [id number] Insulin Regular 100 unit 0 In Sodium Chloride 0.9% 100 ml @ Titrate IV .Q0M [facility] Rx#:[id number] Output: Urine 1100 250 Other: Voiding Method External Catheter External Catheter External Catheter - Exam PHYSICAL EXAM: VITAL SIGNS: [As above] GENERAL: Alert and oriented 3, sitting up in bed, NAD HEENT: Conjunctivae normal. eyes normal. NECK: Supple, No JVD. CARDIOVASCULAR: S1, S2 regular. No murmur RESPIRATION: Unlabored, Breath sounds diminished in the bases. Fine bibasilar crackles. ABDOMEN: Soft, nondistended, nontender . No guarding.positive Bowel sounds. LEGS: No edema. no swelling NERVOUS SYSTEM: Cranial N 2-12 grossly normal. No focal deficits. Strength and sensation grossly intact. Skin: Warm and dry, no rash - Labs CBC & Chem 7: 03/30/22 06:12 03/30/22 06:12 Labs: Abnormal Lab Results - Last 24 Hours (Table) 03/29/22 03/29/22 03/29/22 Range/Units 09:17 09:17 12:01 RBC (3.80-5.40) m/uL Hgb (11.4-16.0) gm/dL Hct (34.0-46.0) % RDW (11.5-15.5) % Neutrophils # (1.3-7.7) k/uL Lymphocytes # (1.0-4.8) k/uL APTT (22.0-30.0) sec Sodium (137-145) mmol/L Potassium 5.2 H (3.5-5.1) mmol/L BUN 33 H (7-17) mg/dL Creatinine 1.74 H (0.52-1.04) mg/dL Glucose 126 H (74-99) mg/dL POC Glucose (mg/dL) 169 H (70-110) mg/dL Hemoglobin A1c 7.8 H (0.0-6.0) % Troponin I (0.000-0.034) ng/mL 03/29/22 03/29/22 03/29/22 Range/Units 13:45 16:40 19:38 RBC (3.80-5.40) m/uL Hgb (11.4-16.0) gm/dL Hct (34.0-46.0) % RDW (11.5-15.5) % Neutrophils # (1.3-7.7) k/uL Lymphocytes # (1.0-4.8) k/uL APTT (22.0-30.0) sec Sodium (137-145) mmol/L Potassium (3.5-5.1) mmol/L BUN (7-17) mg/dL Creatinine (0.52-1.04) mg/dL Glucose (74-99) mg/dL POC Glucose (mg/dL) 235 H 225 H 247 H (70-110) mg/dL Hemoglobin A1c (0.0-6.0) % Troponin I (0.000-0.034) ng/mL 03/30/22 03/30/22 03/30/22 Range/Units 01:25 06:12 06:12 RBC (3.80-5.40) m/uL Hgb (11.4-16.0) gm/dL Hct (34.0-46.0) % RDW (11.5-15.5) % Neutrophils # (1.3-7.7) k/uL Lymphocytes # (1.0-4.8) k/uL APTT 48.9 H (22.0-30.0) sec Sodium 131 L (137-145) mmol/L Potassium (3.5-5.1) mmol/L BUN 43 H (7-17) mg/dL Creatinine 1.89 H (0.52-1.04) mg/dL Glucose 317 H (74-99) mg/dL POC Glucose (mg/dL) (70-110) mg/dL Hemoglobin A1c (0.0-6.0) % Troponin I 26.500 H* (0.000-0.034) ng/mL 03/30/22 03/30/22 03/30/22 Range/Units 06:12 06:12 06:18 RBC 3.73 L (3.80-5.40) m/uL Hgb 10.3 L (11.4-16.0) gm/dL Hct 31.4 L (34.0-46.0) % RDW 15.6 H (11.5-15.5) % Neutrophils # 8.4 H (1.3-7.7) k/uL Lymphocytes # 0.7 L (1.0-4.8) k/uL APTT (22.0-30.0) sec Sodium (137-145) mmol/L Potassium (3.5-5.1) mmol/L BUN (7-17) mg/dL Creatinine (0.52-1.04) mg/dL Glucose (74-99) mg/dL POC Glucose (mg/dL) 302 H (70-110) mg/dL Hemoglobin A1c (0.0-6.0) % Troponin I 21.500 H* (0.000-0.034) ng/mL Assessment and Plan Assessment: Shortness of breath, multifactorial, secondary to NSTEMI , possibly CHF exacerbation. Acute renal failure Hyperkalemia, resolved Diabetes mellitus type 2, hyperglycemic on admission, status post insulin drip, A1c 8.8% on 05/14/2021, current A1c pending, Nonischemic cardiomyopathy , status post AICD placement. Coronary artery disease with stent placement of RCA, known chronic total occlusion of the LAD and circumflex PAD Hypertension. Hyperlipidemia. Peripheral neuropathy secondary to diabetes mellitus. Bilateral foot neuropathic secondary to diabetes mellitus. Chronic kidney disease stage III. Baseline 1.6-1.8 Anemia suspect secondary to chronic kidney disease. Gait dysfunction, mostly wheelchair-bound Morbid obesity, BMI 32.7 Plan: Continue on current medication regime ,monitoring and symptomatic treatment.Labs pending- Close monitoring of renal function, had worsened yesterday. Gentle IV fluid hydration .cardiac catheterization this am pending. The impression and plan of care has been dictated as directed. : I performed a history and examination of this patient, discussed the same with the dictator. I agree with the dictator's note ,documented as a scribe. Any additional findings or plans will be noted.
--- NOTE | 2022-03-30 16:20 | P.PN ---
Subjective Progress Note Date: 03/30/22 This is a 67-year-old male patient was being seen for a follow-up. We saw this patient in consultation for shortness of breath. The patient is known to have CAD and the patient has undergone previous coronary intervention and stenting. He is also known to have congestion heart failure. He has an AICD in place. His other comorbid conditions include bronchial asthma, chronic stage III kidney disease her creatinine is at 1.7. The patient also has history of fibromyalgia, diabetes mellitus, acid reflux, hyperlipidemia as comorbid conditions. The patient is known to have CAD. In this current admission, the troponin peaked at 3.44. The chest x-ray was consistent with CHF. The patient is currently on IV heparin. PTT is therapeutic for now. The patient is also on Lasix 40 mg IV every 24 hours for diuresis. The patient is on aspirin and Plavix. The patient is on metoprolol 50 mg by mouth daily. Echocardiogram is still pending for now patient is resting comfortably in bed at 2 L/m nasal cannula. The patient is awaiting a cardiology evaluation. EKG showed normal evidence of any ST segment elevation. ProBNP level was elevated at 3450. The patient is seen today 03/30/2022 in follow-up on the elective care unit. She is currently resting comfortably in bed. Awake and alert in no acute distress. White count 9.3. Hemoglobin 9.3. Sodium 131. Potassium 5.0. BUN 43. Creatinine 1.89. Glucose 217. Troponins 26.5, 21.5. She did undergo cardiac catheterization and subsequent stenting of the distal right coronary artery, mid right coronary artery and proximal right coronary artery. She is resting flat in bed. Denies any chest pain. No palpitations. No worsening shortness of breath. She is maintaining good O2 saturations up to 100% on 2 L/m per nasal cannula. Afebrile. Hemodynamically stable. Objective - Vital Signs Vital signs: Vital Signs Temp 97.7 F 03/30/22 04:00 Pulse 94 03/30/22 15:32 Resp 16 03/30/22 14:00 BP 108/63 03/30/22 13:04 Pulse Ox 100 03/30/22 12:04 FiO2 21 03/29/22 21:37 Intake & Output 11/21/22 11/22/22 11/22/22 18:59 06:59 18:59 Intake Total 73.547 100 Output Total 1100 250 Balance -1026.453 -250 100 Weight 89 kg 89 kg Intake: IV 100 Intake, IV Titration 73.547 Amount Heparin Sod,Pork in 0.45% 73.547 NaCl 25,000 unit In 0.45 % NaCl 1 250ml.bag @ 12 UNITS/KG/HR 9.525 mls/hr IV .Q24H MANDY Rx#: [id number] Insulin Regular 100 unit 0 In Sodium Chloride 0.9% 100 ml @ Titrate IV .Q0M MANDY Rx#:[id number] Output: Urine 1100 250 Other: Voiding Method External Catheter External Catheter External Catheter - Exam GENERAL EXAM: Alert, very pleasant 67-year-old female, currently flat in bed, on 2 L nasal cannula, comfortable in no apparent distress. HEAD: Normocephalic. EYES: Normal reaction of pupils, equal size. NOSE: Clear with pink turbinates. THROAT: No erythema or exudates. NECK: No masses, no JVD. CHEST: No chest wall deformity. LUNGS: Equal air entry with no crackles, wheeze, rhonchi or dullness. CVS: S1 and S2 normal with no audible murmur, regular rhythm. ABDOMEN: No hepatosplenomegaly, normal bowel sounds, no guarding or rigidity. SPINE: No scoliosis or deformity SKIN: No rashes CENTRAL NERVOUS SYSTEM: No focal deficits, tone is normal in all 4 extremities. EXTREMITIES: There is no peripheral edema. No clubbing, no cyanosis. Peripheral pulses are intact. - Labs CBC & Chem 7: 03/30/22 06:12 03/30/22 06:12 Labs: Abnormal Lab Results - Last 24 Hours (Table) 03/29/22 03/29/22 03/29/22 Range/Units 09:17 16:40 19:38 RBC (3.80-5.40) m/uL Hgb (11.4-16.0) gm/dL Hct (34.0-46.0) % RDW (11.5-15.5) % Neutrophils # (1.3-7.7) k/uL Lymphocytes # (1.0-4.8) k/uL APTT (22.0-30.0) sec Sodium (137-145) mmol/L BUN (7-17) mg/dL Creatinine (0.52-1.04) mg/dL Glucose (74-99) mg/dL POC Glucose (mg/dL) 225 H 247 H (70-110) mg/dL Hemoglobin A1c 7.8 H (0.0-6.0) % Troponin I (0.000-0.034) ng/mL 03/30/22 03/30/22 03/30/22 Range/Units 01:25 06:12 06:12 RBC (3.80-5.40) m/uL Hgb (11.4-16.0) gm/dL Hct (34.0-46.0) % RDW (11.5-15.5) % Neutrophils # (1.3-7.7) k/uL Lymphocytes # (1.0-4.8) k/uL APTT 48.9 H (22.0-30.0) sec Sodium 131 L (137-145) mmol/L BUN 43 H (7-17) mg/dL Creatinine 1.89 H (0.52-1.04) mg/dL Glucose 317 H (74-99) mg/dL POC Glucose (mg/dL) (70-110) mg/dL Hemoglobin A1c (0.0-6.0) % Troponin I 26.500 H* (0.000-0.034) ng/mL 03/30/22 03/30/22 03/30/22 Range/Units 06:12 06:12 06:18 RBC 3.73 L (3.80-5.40) m/uL Hgb 10.3 L (11.4-16.0) gm/dL Hct 31.4 L (34.0-46.0) % RDW 15.6 H (11.5-15.5) % Neutrophils # 8.4 H (1.3-7.7) k/uL Lymphocytes # 0.7 L (1.0-4.8) k/uL APTT (22.0-30.0) sec Sodium (137-145) mmol/L BUN (7-17) mg/dL Creatinine (0.52-1.04) mg/dL Glucose (74-99) mg/dL POC Glucose (mg/dL) 302 H (70-110) mg/dL Hemoglobin A1c (0.0-6.0) % Troponin I 21.500 H* (0.000-0.034) ng/mL 03/30/22 Range/Units 11:53 RBC (3.80-5.40) m/uL Hgb (11.4-16.0) gm/dL Hct (34.0-46.0) % RDW (11.5-15.5) % Neutrophils # (1.3-7.7) k/uL Lymphocytes # (1.0-4.8) k/uL APTT (22.0-30.0) sec Sodium (137-145) mmol/L BUN (7-17) mg/dL Creatinine (0.52-1.04) mg/dL Glucose (74-99) mg/dL POC Glucose (mg/dL) 275 H (70-110) mg/dL Hemoglobin A1c (0.0-6.0) % Troponin I (0.000-0.034) ng/mL Assessment and Plan Assessment: Acute shortness of breath, most likely related to non-ST segment elevation myocardial infarction. Status post stenting 3 to the RCA in 03/30/2022 Acute hypoxic respiratory failure secondary to acute systolic congestive heart failure with an ejection fraction of 20-25%. Vague history of COPD/asthma, although the patient smoked remotely, and did not smoke a great deal. Previous history of PCI with stent placement. History of CHF. History of diabetes mellitus. History of hypertension. History of hyperlipidemia. Prior history of myocardial infarction. Stage III chronic kidney disease. AICD placement. Multiple other medical problems and comorbidities. Plan: The patient was seen and evaluated Received stenting 3 to the RCA today Currently on aspirin and Brilinta Continued on bronchodilators Remains on IV diuretics Titrate the FiO2 as tolerated Increase her activity as tolerated We'll continue to follow I have personally seen and examined the patient, performed the documentation and the assessment and plan as written. Number of minutes spent on the visit: 10. On today's evaluation of 03/30/2022, I'm seeing a joint evaluation on this patient along with the nurse practitioner. Fortunately, the patient underwent a cardiac catheterization and the patient was found to have CAD and the patient underwent stenting 3 in the RCA. Currently she is resting comfortably in bed. No evidence of any hematoma formation of the surgical site. The COPD/asthma is currently inactive and stable and the patient will be taken off the [facility]Medrol. Continue bronchodilators. Monitor renal function. The patient has cardiac myopathy that is to be further monitored and treated.
[2022-03-30 17:06] LABS: Glucose,Whole Blood 302 mg/dL (70-110)
[2022-03-30 20:09] LABS: Glucose,Whole Blood 285 mg/dL (70-110)
[2022-03-30] MEDS: SODIUM CHLORIDE 0.9% 1,000 ML in EMPTY BAG 1 BAG IV SCH (21:22)
[2022-03-30] MEDS: ALPRAZolam 0.25 MG TAB PO SCH (21:28)
[2022-03-30] MEDS: GABAPENTIN 300 MG CAP PO SCH (21:28)
[2022-03-30] MEDS: CYCLOBENZAPRINE 10 MG TAB PO SCH (21:28)
[2022-03-31 05:51] LABS: Glucose,Whole Blood 212 mg/dL (70-110)
[2022-03-31] MEDS: PANTOPRAZOLE 40 MG TABLET PO SCH (06:26)
[2022-03-31] MEDS: INSULIN ASPART (NovoLOG) 100 UNIT/ML VIAL SQ SCH ×4 (06:27→19:48)
[2022-03-31] MEDS: IPRATROPIUM-ALBUTEROL 3 ML NEB INHALATION SCH ×4 (07:17→21:12)
[2022-03-31 08:28] LABS: Basophils % (A) 0 %; Eosinophils # (A) 0.2 k/uL (0-0.7); Eosinophils % (A) 2 %; HCT 29.2 % (34.0-46.0); HGB 9.3 gm/dL (11.4-16.0); Hypochromasia Marked; Lymphocytes # (A) 1.8 k/uL (1.0-4.8); Lymphocytes % (A) 22 %; MCH 27.6 pg (25.0-35.0); MCHC 31.9 g/dL (31.0-37.0); MCV 86.7 fL (80.0-100.0); Mean Platelet Volume 8.3; Monocytes # (A) 0.5 k/uL (0-1.0); Monocytes % (A) 7 %; Neutrophils # (A) 5.5 k/uL (1.3-7.7); Neutrophils % (A) 68 %; Platelet Count 191 k/uL (150-450); RBC 3.37 m/uL (3.80-5.40); RDW 15.4 % (11.5-15.5); WBC 8.2 k/uL (3.8-10.6)
[2022-03-31 08:39] LABS: Calcium 8.4 mg/dL (8.4-10.2)
[2022-03-31 08:42] LABS: Potassium 4.4 mmol/L (3.5-5.1)
[2022-03-31] MEDS ORDERED: CLOPIDOGREL 75 MG TAB PO SCH (09:00)
[2022-03-31] MEDS: FUROSEMIDE 10 MG/ML 4 ML VIAL IV SCH (09:13)
[2022-03-31] MEDS: TICAGRELOR 90 MG TAB PO SCH ×2 (09:14→19:48)
[2022-03-31] MEDS: cilostazoL 100 MG TAB PO SCH ×2 (09:14→19:48)
[2022-03-31] MEDS: ASPIRIN 81 MG PO SCH (09:14)
[2022-03-31] MEDS: FERROUS SULFATE 325 MG TAB PO SCH (09:15)
[2022-03-31] MEDS: EZETIMIBE 10 MG TAB PO SCH (09:15)
[2022-03-31] MEDS: INSULIN DETEMIR (LEVEMIR) 100 UNIT/ML SYR SQ SCH (09:15)
[2022-03-31] MEDS: METOPROLOL SUCCINATE (ER) 50 MG TAB.ER.24H PO SCH (09:15)
[2022-03-31] MEDS: POTASSIUM CHLORIDE ER 10 MEQ TAB.ER.PRT PO SCH (09:15)
[2022-03-31] MEDS: ESCITALOPRAM 20 MG TAB PO SCH (09:15)
--- NOTE | 2022-03-31 12:04 | P.PN ---
Subjective HISTORY OF PRESENTING ILLNESS This is a pleasant 67-year-old female patient with past medical history significant for coronary artery disease s/p PCI mid RCA 02/2016, history of nonischemic cardiomyopathy and status post AICD, peripheral artery disease s/p stenting of proximal right anterior tibial artery, hypertension,type 2 diabetes, and dyslipidemia. She follows in the office with Dr. Nagel. We are asked to see in consultation for CHF and elevated troponin. She presented to the emergency room complaining of shortness of breath and generalized fatigue. She was found to have an NSTEMI and cardiomyopathy, echocardiogram revealed an EF of 2025 % mild mitral regurgitation, RVSP of 36 mmHg. 03/30- Patient underwent cardiac catheterization with Dr. Steen that revealed Critical disease involving the proximal and mid and distal RCA with thrombotic lesion and calcified vessel, Chronic total occlusion of the LAD which is a known finding from before, Chronic total occlusion of the LCx which is also a known finding from before, Severely elevated left-sided filling pressure with LVEDP of 30 mmHg. She underwent PCI to distal RCA, mid RCA and proximal RCA. 03/31/2022 Patient seen and examined at bedside, no acute events overnight. Denies any chest pain. Breathing has improved. She endorses tiredness and fatigue. BP 116/72 HR 82. She continues to be on IV Lasix. -1.2L fluid balance. BUN 46, sCr 1.81 PHYSICAL EXAMINATION Vitals reviewed CONSTITUTIONAL: No apparent distress. HEENT: Head is normocephalic. No JVD. CHEST EXAMINATION: Lungs are mild crackles in the bases bilaterally to auscultation. No chest wall tenderness is noted on palpation or with deep breathing. HEART EXAMINATION: Regular rate and rhythm. S1, S2 heard. No murmurs, gallops or rub. ABDOMEN: Soft, nontender. Positive bowel sounds. EXTREMITIES: 2+ peripheral pulses, no lower extremity edema and no calf tenderness. NEUROLOGIC EXAMINATION: Patient is awake, alert and oriented x3. ASSESSMENT NSTEMI Status post PCI distal RCA, mid RCA and proximal RCA on 03/30 Coronary artery disease with Chronic total occlusion of the LAD which is a known finding from before, Chronic total occlusion of the LCx which is also a known finding from before Acute on chronic heart failure with reduced ejection fraction Ischemic cardiomyopathy EF 20-25% History of AICD placement Peripheral artery disease s/p stenting of proximal right anterior tibial artery Hypertension Type 2 diabetes Dyslipidemia PLAN IV Lasix 40mg daily for additional 24 hours, likely transition to PO tomorrow Continue dual antiplatelet therapy with aspirin and Brilinta Continue statin, Zetia, metoprolol succinate Monitor renal function, I/Os, daily weights Patient not on ACEI/ARB secondary to renal function Further recommendations based on clinical course Nurse practitioner note has been reviewed by physician. Signing provider agrees with the documented findings, assessment, and plan of care. Objective - Vital Signs Vital signs: Vital Signs Temp 97.9 F 03/31/22 08:00 Pulse 86 03/31/22 11:16 Resp 18 03/31/22 08:00 BP 116/72 03/31/22 08:00 Pulse Ox 98 03/31/22 08:00 FiO2 21 03/29/22 21:37 Intake & Output 03/30/22 03/31/22 03/31/22 18:59 06:59 18:59 Intake Total 340 240 Output Total 800 1050 Balance -460 -810 Weight 89 kg 91 kg Intake: IV 100 Oral 240 240 Output: Urine 800 1050 Other: Voiding Method External Catheter External Catheter External Catheter - Labs CBC & Chem 7: 03/31/22 07:40 03/31/22 07:40 Labs: Abnormal Lab Results - Last 24 Hours (Table) 03/30/22 03/30/22 03/31/22 Range/Units 17:03 20:08 05:49 RBC (3.80-5.40) m/uL Hgb (11.4-16.0) gm/dL Hct (34.0-46.0) % APTT (22.0-30.0) sec Sodium (137-145) mmol/L Carbon Dioxide (22-30) mmol/L BUN (7-17) mg/dL Creatinine (0.52-1.04) mg/dL Glucose (74-99) mg/dL POC Glucose (mg/dL) 302 H 285 H 212 H (70-110) mg/dL 03/31/22 03/31/22 03/31/22 Range/Units 07:40 07:40 07:40 RBC 3.37 L (3.80-5.40) m/uL Hgb 9.3 L (11.4-16.0) gm/dL Hct 29.2 L (34.0-46.0) % APTT 21.9 L (22.0-30.0) sec Sodium 133 L (137-145) mmol/L Carbon Dioxide 21 L (22-30) mmol/L BUN 46 H (7-17) mg/dL Creatinine 1.82 H (0.52-1.04) mg/dL Glucose 180 H (74-99) mg/dL POC Glucose (mg/dL) (70-110) mg/dL
[2022-03-31 12:08] LABS: Glucose,Whole Blood 285 mg/dL (70-110)
[2022-03-31] MEDS: SODIUM CHLORIDE 0.9% 1,000 ML in EMPTY BAG 1 BAG IV SCH ×2 (12:11→19:41)
[2022-03-31] MEDS: methylPREDNISolone SOD SUCCI 125 MG/2 ML VIAL IV SCH ×3 (12:59→23:15)
--- NOTE | 2022-03-31 16:47 | P.PN ---
Subjective Progress Note Date: 03/31/22 This is a 67-year-old male patient was being seen for a follow-up. We saw this patient in consultation for shortness of breath. The patient is known to have CAD and the patient has undergone previous coronary intervention and stenting. He is also known to have congestion heart failure. He has an AICD in place. His other comorbid conditions include bronchial asthma, chronic stage III kidney disease her creatinine is at 1.7. The patient also has history of fibromyalgia, diabetes mellitus, acid reflux, hyperlipidemia as comorbid conditions. The patient is known to have CAD. In this current admission, the troponin peaked at 3.44. The chest x-ray was consistent with CHF. The patient is currently on IV heparin. PTT is therapeutic for now. The patient is also on Lasix 40 mg IV every 24 hours for diuresis. The patient is on aspirin and Plavix. The patient is on metoprolol 50 mg by mouth daily. Echocardiogram is still pending for now patient is resting comfortably in bed at 2 L/m nasal cannula. The patient is awaiting a cardiology evaluation. EKG showed normal evidence of any ST segment elevation. ProBNP level was elevated at 3450. The patient is seen today 03/30/2022 in follow-up on the elective care unit. She is currently resting comfortably in bed. Awake and alert in no acute distress. White count 9.3. Hemoglobin 9.3. Sodium 131. Potassium 5.0. BUN 43. Creatinine 1.89. Glucose 217. Troponins 26.5, 21.5. She did undergo cardiac catheterization and subsequent stenting of the distal right coronary artery, mid right coronary artery and proximal right coronary artery. She is resting flat in bed. Denies any chest pain. No palpitations. No worsening shortness of breath. She is maintaining good O2 saturations up to 100% on 2 L/m per nasal cannula. Afebrile. Hemodynamically stable. The patient is seen today 03/31/2000 and follow-up on the selective care unit. She is currently sitting up in bed. Awake and alert in no acute distress. She denies any worsening shortness of breath, cough or congestion. No chest pain. She mainly complains of fatigue. She is somewhat dyspneic on minimal exertion. The patient is maintaining O2 saturations in the 90s on 2 L/m per nasal cannula. White count 8.2. Hemoglobin 9.3. Platelets 191. Sodium 133. Potassium 4.4. Bicarb 21. BUN 46. Creatinine 1.82. Glucose 180. She remains on DuoNeb inhalations. Objective - Vital Signs Vital signs: Vital Signs Temp 97.9 F 03/31/22 08:00 Pulse 106 H 03/31/22 12:00 Resp 18 03/31/22 12:00 BP 116/73 03/31/22 12:00 Pulse Ox 99 03/31/22 12:00 FiO2 21 03/29/22 21:37 Intake & Output 03/30/22 03/31/22 03/31/22 18:59 06:59 18:59 Intake Total 340 240 120 Output Total 800 1050 2200 Balance -460 -810 -2080 Weight 89 kg 91 kg Intake: IV 100 Oral 240 240 120 Output: Urine 800 1050 2200 Other: Voiding Method External Catheter External Catheter External Catheter - Exam GENERAL EXAM: Alert, pleasant 67-year-old female, sitting up in bed, on 2 L nasal cannula, comfortable in no apparent distress. HEAD: Normocephalic. EYES: Normal reaction of pupils, equal size. NOSE: Clear with pink turbinates. THROAT: No erythema or exudates. NECK: No masses, no JVD. CHEST: No chest wall deformity. LUNGS: Equal air entry with faint end expiratory wheeze bilaterally, diminished. CVS: S1 and S2 normal with no audible murmur, regular rhythm. ABDOMEN: No hepatosplenomegaly, normal bowel sounds, no guarding or rigidity. SPINE: No scoliosis or deformity SKIN: No rashes CENTRAL NERVOUS SYSTEM: No focal deficits, tone is normal in all 4 extremities. EXTREMITIES: There is no peripheral edema. No clubbing, no cyanosis. Peripheral pulses are intact. - Labs CBC & Chem 7: 03/31/22 07:40 03/31/22 07:40 Labs: Abnormal Lab Results - Last 24 Hours (Table) 03/30/22 03/30/22 03/31/22 Range/Units 17:03 20:08 05:49 RBC (3.80-5.40) m/uL Hgb (11.4-16.0) gm/dL Hct (34.0-46.0) % APTT (22.0-30.0) sec Sodium (137-145) mmol/L Carbon Dioxide (22-30) mmol/L BUN (7-17) mg/dL Creatinine (0.52-1.04) mg/dL Glucose (74-99) mg/dL POC Glucose (mg/dL) 302 H 285 H 212 H (70-110) mg/dL 03/31/22 03/31/22 03/31/22 Range/Units 07:40 07:40 07:40 RBC 3.37 L (3.80-5.40) m/uL Hgb 9.3 L (11.4-16.0) gm/dL Hct 29.2 L (34.0-46.0) % APTT 21.9 L (22.0-30.0) sec Sodium 133 L (137-145) mmol/L Carbon Dioxide 21 L (22-30) mmol/L BUN 46 H (7-17) mg/dL Creatinine 1.82 H (0.52-1.04) mg/dL Glucose 180 H (74-99) mg/dL POC Glucose (mg/dL) (70-110) mg/dL 03/31/22 Range/Units 12:06 RBC (3.80-5.40) m/uL Hgb (11.4-16.0) gm/dL Hct (34.0-46.0) % APTT (22.0-30.0) sec Sodium (137-145) mmol/L Carbon Dioxide (22-30) mmol/L BUN (7-17) mg/dL Creatinine (0.52-1.04) mg/dL Glucose (74-99) mg/dL POC Glucose (mg/dL) 285 H (70-110) mg/dL Assessment and Plan Assessment: Acute shortness of breath, most likely related to non-ST segment elevation myocardial infarction. Status post stenting 3 to the RCA in 03/30/2022 Acute hypoxic respiratory failure secondary to acute systolic congestive heart failure with an ejection fraction of 20-25%. Vague history of COPD/asthma, although the patient smoked remotely, and did not smoke a great deal. Previous history of PCI with stent placement. History of CHF. History of diabetes mellitus. History of hypertension. History of hyperlipidemia. Prior history of myocardial infarction. Stage III chronic kidney disease. AICD placement. Multiple other medical problems and comorbidities. Plan: The patient was seen and evaluated A bit more short of breath today compared to yesterday Initiate IV Solu-Medrol, continue bronchodilators Remains on IV diuretics Titrate the FiO2 as tolerated Increase her activity as tolerated Follow-up chest x-ray in a.m. We'll continue to follow I have personally seen and examined the patient, performed the documentation and the assessment and plan as written. Number of minutes spent on the visit: 10. Evaluation that was done along with the nurse practitioner. I agree on the above-mentioned plan. The patient was seen in conjunction with the [employer]. This evaluation was done in more than 20 minutes.
[2022-03-31 17:04] LABS: Glucose,Whole Blood 296 mg/dL (70-110)
[2022-03-31 19:42] LABS: Glucose,Whole Blood 381 mg/dL (70-110)
[2022-03-31] MEDS: GABAPENTIN 300 MG CAP PO SCH (19:48)
[2022-03-31] MEDS: CYCLOBENZAPRINE 10 MG TAB PO SCH (19:48)
[2022-03-31] MEDS: ALPRAZolam 0.25 MG TAB PO SCH (19:48)
[2022-04-01 05:59] LABS: Glucose,Whole Blood 383 mg/dL (70-110)
[2022-04-01] MEDS: SODIUM CHLORIDE 0.9% 1,000 ML in EMPTY BAG 1 BAG IV SCH ×2 (06:15→17:28)
[2022-04-01] MEDS: PANTOPRAZOLE 40 MG TABLET PO SCH (06:19)
[2022-04-01] MEDS: INSULIN DETEMIR (LEVEMIR) 100 UNIT/ML SYR SQ SCH (06:19)
[2022-04-01] MEDS: methylPREDNISolone SOD SUCCI 125 MG/2 ML VIAL IV SCH ×4 (06:19→23:08)
[2022-04-01] MEDS: INSULIN ASPART (NovoLOG) 100 UNIT/ML VIAL SQ SCH ×4 (06:19→20:57)
[2022-04-01] MEDS: IPRATROPIUM-ALBUTEROL 3 ML NEB INHALATION SCH ×4 (07:08→19:26)
--- NOTE | 2022-04-01 08:25 | XR ---
EXAMINATION TYPE: XR chest 1V portable DATE OF EXAM: 04/01/2022 COMPARISON: 03/28/2022 HISTORY: CHF TECHNIQUE: Single frontal view of the chest is obtained. FINDINGS: There is a single lead cardiac pacemaker. There has been interval resolution of the pulmonary vascular congestion and interstitial edema. Heart size is normal. There is no airspace consolidation. There is no large pleural effusion or pneumothorax. The osseous structures are intact. IMPRESSION: Interval resolution of the pulmonary vascular congestion and interstitial edema. Currently there is n o definite of acute cardiopulmonary disease.
[2022-04-01 08:52] LABS: Calcium 8.5 mg/dL (8.4-10.2); Potassium 4.4 mmol/L (3.5-5.1)
[2022-04-01] MEDS: METOPROLOL SUCCINATE (ER) 50 MG TAB.ER.24H PO SCH (09:55)
[2022-04-01] MEDS: ASPIRIN 81 MG PO SCH (09:55)
[2022-04-01] MEDS: EZETIMIBE 10 MG TAB PO SCH (09:55)
[2022-04-01] MEDS: POTASSIUM CHLORIDE ER 10 MEQ TAB.ER.PRT PO SCH (09:55)
[2022-04-01] MEDS: FERROUS SULFATE 325 MG TAB PO SCH (09:55)
[2022-04-01] MEDS: ESCITALOPRAM 20 MG TAB PO SCH (09:55)
[2022-04-01] MEDS: cilostazoL 100 MG TAB PO SCH ×2 (09:55→20:21)
[2022-04-01] MEDS: TICAGRELOR 90 MG TAB PO SCH ×2 (09:55→20:21)
[2022-04-01] MEDS: NITROGLYCERIN SL TABS 0.4 MG TAB SUBLINGUAL PRN (09:56)
[2022-04-01] MEDS: FUROSEMIDE 10 MG/ML 4 ML VIAL IV SCH (09:56)
[2022-04-01] MEDS: HYDROcodone/APAP 5-325MG 1 EACH TAB PO PRN (10:08)
[2022-04-01] MEDS ORDERED: ASPIRIN 325 MG TAB PO STA (10:36)
[2022-04-01] MEDS ORDERED: ATORVASTATIN 80 MG TAB PO STA (10:36)
[2022-04-01] MEDS ORDERED: ALPRAZolam 0.5 MG TAB PO PRN (10:36)
[2022-04-01] MEDS ORDERED: NITROGLYCERIN SL TABS 0.4 MG TAB SUBLINGUAL PRN (10:36)
[2022-04-01] MEDS ORDERED: ALPRAZolam 0.25 MG TAB PO PRN (10:36)
--- NOTE | 2022-04-01 10:41 | P.PN ---
Subjective HISTORY OF PRESENTING ILLNESS This is a pleasant 67-year-old female patient with past medical history significant for coronary artery disease s/p PCI mid RCA 02/2016, history of nonischemic cardiomyopathy and status post AICD, peripheral artery disease s/p stenting of proximal right anterior tibial artery, hypertension,type 2 diabetes, and dyslipidemia. She follows in the office with Dr. Nagel. We are asked to see in consultation for CHF and elevated troponin. She presented to the emergency room complaining of shortness of breath and generalized fatigue. She was found to have an NSTEMI and cardiomyopathy, echocardiogram revealed an EF of 2025 % mild mitral regurgitation, RVSP of 36 mmHg. 03/30- Patient underwent cardiac catheterization with Dr. Steen that revealed Critical disease involving the proximal and mid and distal RCA with thrombotic lesion and calcified vessel, Chronic total occlusion of the LAD which is a known finding from before, Chronic total occlusion of the LCx which is also a known finding from before, Severely elevated left-sided filling pressure with LVEDP of 30 mmHg. She underwent PCI to distal RCA, mid RCA and proximal RCA. 03/31/2022 Patient seen and examined at bedside, no acute events overnight. Denies any chest pain. Breathing has improved. She endorses tiredness and fatigue. BP 116/72 HR 82. She continues to be on IV Lasix. -1.2L fluid balance. BUN 46, sCr 1.81 04/01 Patient seen and examined. Patient states she had been feeling fine however after breakfast this morning started having right shoulder pain, feeling somewhat nauseous, getting a headache and having some chest discomfort. She states his feels similar to her prior angina with the heart catheterization as well as with her prior stents in the past. EKG performed which shows reading of atrial flutter/tachycardia however appears to be sinus rhythm and on telemetry clear gradual rise in heart rate. Patient was given nitro with no improvement. PHYSICAL EXAMINATION Vitals reviewed CONSTITUTIONAL: No apparent distress. HEENT: Head is normocephalic. No JVD. CHEST EXAMINATION: Lungs are mild crackles in the bases bilaterally to auscultation. No chest wall tenderness is noted on palpation or with deep breathing. HEART EXAMINATION: Regular rate and rhythm. S1, S2 heard. No murmurs, gallops or rub. ABDOMEN: Soft, nontender. Positive bowel sounds. EXTREMITIES: 2+ peripheral pulses, no lower extremity edema and no calf tenderness. NEUROLOGIC EXAMINATION: Patient is awake, alert and oriented x3. ASSESSMENT NSTEMI Status post PCI distal RCA, mid RCA and proximal RCA on 03/30 Coronary artery disease with Chronic total occlusion of the LAD which is a known finding from before, Chronic total occlusion of the LCx which is also a known finding from before Acute on chronic heart failure with reduced ejection fraction Ischemic cardiomyopathy EF 20-25% History of AICD placement Peripheral artery disease s/p stenting of proximal right anterior tibial artery Hypertension Type 2 diabetes Dyslipidemia Recurrent chest pain, shoulder pain 04/01 concerning for angina PLAN Continue dual antiplatelet therapy with aspirin and Brilinta Continue statin, Zetia, metoprolol succinate Patient with worsened chest pain and shoulder pain similar to her prior angina concerning for stent occlusion. EKG showing sinus tachycardia with Q waves inferiorly and diffuse ST depressions 1 and aVL as well as borderline aVR elevation. Discussed with patient risks and benefits of heart catheterization including kidney failure and patient agreeable. IV heparin now and urgent cath Objective - Vital Signs Vital signs: Vital Signs Temp 97.5 F L 04/01/22 09:37 Pulse 120 H 04/01/22 09:37 Resp 18 04/01/22 09:37 BP 108/56 04/01/22 09:37 Pulse Ox 99 04/01/22 09:37 FiO2 21 03/29/22 21:37 Intake & Output 03/31/22 04/01/22 04/01/22 18:59 06:59 18:59 Intake Total 120 240 Output Total 2200 600 Balance -2080 -360 Weight 88.5 kg Intake: Oral 120 240 Output: Urine 2200 600 Other: Voiding Method External Catheter External Catheter External Catheter - Labs CBC & Chem 7: 03/31/22 07:40 04/01/22 07:49 Labs: Abnormal Lab Results - Last 24 Hours (Table) 03/31/22 03/31/22 03/31/22 Range/Units 12:06 17:01 19:40 Sodium (137-145) mmol/L BUN (7-17) mg/dL Creatinine (0.52-1.04) mg/dL Glucose (74-99) mg/dL POC Glucose (mg/dL) 285 H 296 H 381 H (70-110) mg/dL 04/01/22 04/01/22 Range/Units 05:58 07:49 Sodium 132 L (137-145) mmol/L BUN 45 H (7-17) mg/dL Creatinine 1.67 H (0.52-1.04) mg/dL Glucose 329 H (74-99) mg/dL POC Glucose (mg/dL) 383 H (70-110) mg/dL
[2022-04-01] MEDS ORDERED: HEPARIN SODIUM 1,000 UN/ML (10ML VL) IVP STA (10:45)
[2022-04-01] MEDS ORDERED: IV FLUID CONTINUATION 1,000 ML IV ONE (11:18)
[2022-04-01] MEDS ORDERED: VERAPAMIL 2.5 MG/ML 2 ML AMP ONE (11:38)
[2022-04-01] MEDS ORDERED: fentaNYL (PF) 50 MCG/ML 2 ML AMP ONE (11:38)
[2022-04-01] MEDS ORDERED: HEPARIN SODIUM 1,000 UN/ML (10ML VL) ONE (11:38)
[2022-04-01] MEDS: MIDAZOLAM 2 MG/2 ML VIAL IV ONE ×2 (11:40→11:44)
[2022-04-01] MEDS ORDERED: fentaNYL (PF) 50 MCG/ML 2 ML AMP IV ONE (11:40)
[2022-04-01] MEDS ORDERED: LIDOCAINE 1% INJ 10MG/ML (5 ML VIAL-PF) SQ ONE (11:44)
[2022-04-01] MEDS ORDERED: VERAPAMIL SYRINGE (5 MG/10 ML) INTRAARTER ONE (11:47)
[2022-04-01] MEDS ORDERED: HEPARIN SODIUM 1,000 UN/ML (10ML VL) IV ONE (11:51)
[2022-04-01] MEDS ORDERED: IOPAMIDOL-370 100ML BTL INJ ONE (11:56)
--- NOTE | 2022-04-01 12:12 | P.CARDCATH ---
Description of Procedure: PROCEDURES PERFORMED: Bilateral coronary angiography INDICATION: History of CAD and recent stenting, new onset of angina symptoms with EKG changes concerning for stent thrombosis CONSENT:I have discussed the risks, benefits and alternative therapies for the above-mentioned procedure and for both sedation/analgesia as well as necessary blood product administration, if indicated, as they pertain to this patient. The patient has indicated understanding and acceptance of the risks and procedures discussed. PROCEDURE: After the risks, benefits and alternatives of the above mentioned procedure explained in detail with the patient, informed consent was obtained. Patient was taken to the catheterization lab and prepped and draped in usual fashion. 1% lidocaine was used to anesthetize the right radial artery. A 6- [facility] sheath was placed in the right radial artery using modified Seldinger technique. Left coronary angiography was performed with a 5-[facility] JL 3.5 catheter and right coronary angiography was performed with a 5-[facility] JR5 catheter in various views. The right radial sheath was removed and a TR band was placed with hemostasis achieved. The patient tolerated the procedure well. Patient was transported back to the post catheterization holding area in stable condition. Conscious Sedation: Patient was monitored under the direct supervision of vision of myself for conscious sedation using Versed and fentanyl for a total duration of 12 minutes HEMODYNAMICS: Ao: 108/68 SELECTIVE CORONARY ARTERIOGRAPHY: LEFT MAIN: The left main is a large caliber vessel which gives rise to the LAD however no obvious osteomyelitis circumflex. There is mild tenderness to 20% left main stenosis. LEFT ANTERIOR DESCENDING CORONARY ARTERY: LAD is a large caliber vessel which is tortuous and gives off 2 small diagonal branches and does not reach the apex. There is a med LAD 50% stenosis which appears unchanged. There are faint left to left collaterals to the circumflex territory LEFT CIRCUMFLEX CORONARY ARTERY: Left circumflex is occluded at the ostium with what appears to be faint left to left collaterals. RIGHT CORONARY ARTERY: The right coronary artery is a large caliber vessel which gives off a PDA and PLV branch and is the dominant vessel. There is a proximal to mid RCA stent which is widely patent. There are mild luminal irregularities. The PLV appears a supply some of the circumflex territory. FINAL IMPRESSION: 1. Stable CAD as described above including 50% LAD, 100% proximal circumflex, mild luminal irregularities of the RCA 2. Patent RCA stents PLAN: 1. Aggressive risk factor modification per most recent ACC/AHA guidelines. 2. Patient was chest pain-free which appeared possibly related to sedation given to patient. Always a possibility of anomalous circumflex however given contrast threshold and appears a small circumflex which is occluded with left to left collaterals and majority of circumflex territory covered by PLV branch. Continue medical therapy.
[2022-04-01 12:17] LABS: Glucose,Whole Blood 437 mg/dL (70-110)
--- NOTE | 2022-04-01 12:43 | P.PN ---
Subjective Progress Note Date: 04/01/22 Patient is a pleasant 67-year-old female patient with past medical history significant for coronary artery disease s/p PCI mid RCA 02/2016, history of nonischemic cardiomyopathy and status post AICD, peripheral artery disease s/p stenting of proximal right anterior tibial artery, hypertension,type 2 diabetes, and dyslipidemia. She follows in the office with Dr. Nagel. She presented to the emergency room complaining of shortness of breath and generalized fatigue. She was found to have an NSTEMI and cardiomyopathy, echocardiogram revealed an EF of 2025 % mild mitral regurgitation, RVSP of 36 mmHg. 03/30- Patient underwent cardiac catheterization with Dr. Steen that revealed Critical disease involving the proximal and mid and distal RCA with thrombotic lesion and calcified vessel, Chronic total occlusion of the LAD which is a known finding from before, Chronic total occlusion of the LCx which is also a known finding from before, Severely elevated left-sided filling pressure with LVEDP of 30 mmHg. She underwent PCI to distal RCA, mid RCA and proximal RCA. 04/01. Patient seen and examined. Complaining of right shoulder pain as well as some chest discomfort that started after breakfast this morning. EKG shows atrial flutter. Cardiology evaluated the patient, planning to take the patient for cardiac cath REVIEW OF SYSTEMS: CONSTITUTIONAL: No fever, no malaise,. CARDIOVASCULAR: As mentioned in HPI PULMONARY: No shortness of breath, no cough, GASTROINTESTINAL: No diarrhea, no nausea, no vomiting, no abdominal pain. NEUROLOGICAL: No headaches, no weakness, PHYSICAL EXAMINATION: GENERAL: The patient is alert and oriented x3, not in any acute distress. Well developed, well nourished. HEENT: Pupils are round and equally reacting to light. EOMI. No scleral icterus. No conjunctival pallor. Normocephalic, atraumatic. No pharyngeal erythema. No thyromegaly. CARDIOVASCULAR: S1 and S2 present. No murmurs, rubs, or gallops. PULMONARY: Chest is clear to auscultation, no wheezing or crackles. ABDOMEN: Soft, nontender, nondistended, normoactive bowel sounds. No palpable organomegaly. MUSCULOSKELETAL: No joint swelling or deformity. EXTREMITIES: No cyanosis, clubbing, or pedal edema. NEUROLOGICAL: Gross neurological examination did not reveal any focal deficits. SKIN: No rashes. Assessment and plan NSTEMI Status post PCI distal RCA, mid RCA and proximal RCA on 03/30 Coronary artery disease with Chronic total occlusion of the LAD which is a known finding from before, Chronic total occlusion of the LCx which is also a known fi nding from before Acute on chronic heart failure with reduced ejection fraction Ischemic cardiomyopathy EF 20-25% History of AICD placement Peripheral artery disease s/p stenting of proximal right anterior tibial artery Hypertension Type 2 diabetes Dyslipidemia Recurrent chest pain, shoulder pain 04/01 concerning for angina PLAN Monitor vital signs Monitor CBC Continue telemetry monitoring Moderate renal functions Continue dual antiplatelet therapy with aspirin and Brilinta Continue statin, Zetia, metoprolol succinate Start IV heparin Cardiology planning to take the patient for cardiac cath immediately DVT prophylaxis: Objective - Vital Signs Vital signs: Vital Signs Temp 98.1 F 04/01/22 12:15 Pulse 109 H 04/01/22 12:15 Resp 18 04/01/22 12:15 BP 109/72 04/01/22 12:15 Pulse Ox 97 04/01/22 12:15 FiO2 21 03/29/22 21:37 Intake & Output 03/31/22 04/01/22 04/01/22 18:59 06:59 18:59 Intake Total 120 240 50 Output Total 2200 600 Balance -2079 -360 50 Weight 88.5 kg Intake: IV 50 Oral 120 240 Output: Urine 2200 600 Other: Voiding Method External Catheter External Catheter External Catheter - Labs CBC & Chem 7: 03/31/22 07:40 04/01/22 07:49 Labs: Abnormal Lab Results - Last 24 Hours (Table) 03/31/22 03/31/22 04/01/22 Range/Units 17:01 19:40 05:58 Sodium (137-145) mmol/L BUN (7-17) mg/dL Creatinine (0.52-1.04) mg/dL Glucose (74-99) mg/dL POC Glucose (mg/dL) 296 H 381 H 383 H (70-110) mg/dL 04/01/22 04/01/22 Range/Units 07:49 12:15 Sodium 132 L (137-145) mmol/L BUN 45 H (7-17) mg/dL Creatinine 1.67 H (0.52-1.04) mg/dL Glucose 329 H (74-99) mg/dL POC Glucose (mg/dL) 437 H (70-110) mg/dL
--- NOTE | 2022-04-01 16:06 | P.PN ---
Subjective Progress Note Date: 04/01/22 This is a 67-year-old male patient was being seen for a follow-up. We saw this patient in consultation for shortness of breath. The patient is known to have CAD and the patient has undergone previous coronary intervention and stenting. He is also known to have congestion heart failure. He has an AICD in place. His other comorbid conditions include bronchial asthma, chronic stage III kidney disease her creatinine is at 1.7. The patient also has history of fibromyalgia, diabetes mellitus, acid reflux, hyperlipidemia as comorbid conditions. The patient is known to have CAD. In this current admission, the troponin peaked at 3.44. The chest x-ray was consistent with CHF. The patient is currently on IV heparin. PTT is therapeutic for now. The patient is also on Lasix 40 mg IV every 24 hours for diuresis. The patient is on aspirin and Plavix. The patient is on metoprolol 50 mg by mouth daily. Echocardiogram is still pending for now patient is resting comfortably in bed at 2 L/m nasal cannula. The patient is awaiting a cardiology evaluation. EKG showed normal evidence of any ST segment elevation. ProBNP level was elevated at 3450. The patient is seen today 03/30/2022 in follow-up on the elective care unit. She is currently resting comfortably in bed. Awake and alert in no acute distress. White count 9.3. Hemoglobin 9.3. Sodium 131. Potassium 5.0. BUN 43. Creatinine 1.89. Glucose 217. Troponins 26.5, 21.5. She did undergo cardiac catheterization and subsequent stenting of the distal right coronary artery, mid right coronary artery and proximal right coronary artery. She is resting flat in bed. Denies any chest pain. No palpitations. No worsening shortness of breath. She is maintaining good O2 saturations up to 100% on 2 L/m per nasal cannula. Afebrile. Hemodynamically stable. The patient is seen today 03/31/2000 and follow-up on the selective care unit. She is currently sitting up in bed. Awake and alert in no acute distress. She denies any worsening shortness of breath, cough or congestion. No chest pain. She mainly complains of fatigue. She is somewhat dyspneic on minimal exertion. The patient is maintaining O2 saturations in the 90s on 2 L/m per nasal cannula. White count 8.2. Hemoglobin 9.3. Platelets 191. Sodium 133. Potassium 4.4. Bicarb 21. BUN 46. Creatinine 1.82. Glucose 180. She remains on DuoNeb inhalations. 04/01/2022, clinically improved and the patient is feeling less short of breath compared to yesterday. However, the patient was having some chest pain and there was a concern forangina or palpitations related to stenting. The patient underwent another cardiac catheterization and the patient was found to have stable coronary artery disease with 50% LAD lesion, 100% proximal circumflex lesion and minimal luminal irregularities of the RCA. There is stents were essentially patent. As far as such aggressive risk factor modification was recommended. Patient will be kept on bronchodilators and steroids. The steroids optimize her COPD over the past 24 hours. BUN is 45 with a creatinine 1.6 and a sodium level is at 132. We'll watch for any contrast nephropathy. Objective - Vital Signs Vital signs: Vital Signs Temp 97.6 F 04/01/22 15:15 Pulse 98 04/01/22 15:46 Resp 18 04/01/22 15:15 BP 100/56 04/01/22 15:15 Pulse Ox 100 04/01/22 15:15 FiO2 21 03/29/22 21:37 Intake & Output 03/31/22 04/01/22 04/01/22 18:59 06:59 18:59 Intake Total 120 240 50 Output Total 2200 600 Balance -2079 -360 50 Weight 88.5 kg Intake: IV 50 Oral 120 240 Output: Urine 2200 600 Other: Voiding Method External Catheter External Catheter External Catheter - Exam GENERAL EXAM: Alert, pleasant 67-year-old female, sitting up in bed, on 2 L nasal cannula, comfortable in no apparent distress. HEAD: Normocephalic. EYES: Normal reaction of pupils, equal size. NOSE: Clear with pink turbinates. THROAT: No erythema or exudates. NECK: No masses, no JVD. CHEST: No chest wall deformity. LUNGS: Equal air entry with faint end expiratory wheeze bilaterally, diminished. CVS: S1 and S2 normal with no audible murmur, regular rhythm. ABDOMEN: No hepatosplenomegaly, normal bowel sounds, no guarding or rigidity. SPINE: No scoliosis or deformity SKIN: No rashes CENTRAL NERVOUS SYSTEM: No focal deficits, tone is normal in all 4 extremities. EXTREMITIES: There is no peripheral edema. No clubbing, no cyanosis. Peripheral pulses are intact. - Labs CBC & Chem 7: 03/31/22 07:40 04/01/22 07:49 Labs: Abnormal Lab Results - Last 24 Hours (Table) 03/31/22 03/31/22 04/01/22 Range/Units 17:01 19:40 05:58 Sodium (137-145) mmol/L BUN (7-17) mg/dL Creatinine (0.52-1.04) mg/dL Glucose (74-99) mg/dL POC Glucose (mg/dL) 296 H 381 H 383 H (70-110) mg/dL 04/01/22 04/01/22 Range/Units 07:49 12:15 Sodium 132 L (137-145) mmol/L BUN 45 H (7-17) mg/dL Creatinine 1.67 H (0.52-1.04) mg/dL Glucose 329 H (74-99) mg/dL POC Glucose (mg/dL) 437 H (70-110) mg/dL Assessment and Plan Assessment: Acute shortness of breath, most likely related to non-ST segment elevation myocardial infarction. Status post stenting 3 to the RCA in 03/30/2022, repeat cardiac catheterization from today showed patent coronary stent involving the RCA. Acute hypoxic respiratory failure secondary to acute systolic congestive heart failure with an ejection fraction of 20-25%. COPD exacerbation currently on bronchodilators and steroids Previous history of PCI with stent placement. History of CHF. History of diabetes mellitus. History of hypertension. History of hyperlipidemia. Prior history of myocardial infarction. Stage III chronic kidney disease. AICD placement. Multiple other medical problems and comorbidities. Plan: Results of the repeat Was noted Less short of breath compared to yesterday Continue IV Solu-Medrol, continue bronchodilators Remains on IV diuretics and the patient is on Lasix 40 mg IV every 24 hours Titrate the FiO2 as tolerated Increase her activity as tolerated Follow-up chest x-ray in a.m. from today shows interval resolution of the colovesical congestion in a patient can be switched to oral Lasix as of tomorrow Watch for any contrast nephropathy We'll continue to follow
[2022-04-01 16:57] LABS: Glucose,Whole Blood 521 mg/dL (70-110); Glucose,Whole Blood 528 mg/dL (70-110)
[2022-04-01 20:20] LABS: Glucose,Whole Blood 497 mg/dL (70-110)
[2022-04-01] MEDS: GABAPENTIN 300 MG CAP PO SCH (20:21)
[2022-04-01] MEDS: ALPRAZolam 0.25 MG TAB PO SCH (20:21)
[2022-04-01] MEDS: CYCLOBENZAPRINE 10 MG TAB PO SCH (20:21)
[2022-04-02 05:48] LABS: Glucose,Whole Blood 420 mg/dL (70-110)
[2022-04-02] MEDS: SODIUM CHLORIDE 0.9% 1,000 ML in EMPTY BAG 1 BAG IV SCH ×2 (06:42→17:30)
[2022-04-02] MEDS: methylPREDNISolone SOD SUCCI 125 MG/2 ML VIAL IV SCH ×2 (06:52→11:58)
[2022-04-02] MEDS: INSULIN DETEMIR (LEVEMIR) 100 UNIT/ML SYR SQ SCH (06:53)
[2022-04-02] MEDS: INSULIN ASPART (NovoLOG) 100 UNIT/ML VIAL SQ SCH ×7 (06:54→21:16)
[2022-04-02] MEDS: PANTOPRAZOLE 40 MG TABLET PO SCH (06:54)
[2022-04-02] MEDS ORDERED: HEPARIN SODIUM,PORCINE 10,000 UNIT in SODIUM CHLORIDE 0.9% 1,000 ML IRRIGATION PRN (07:00)
[2022-04-02] MEDS ORDERED: HEPARIN SODIUM,PORCINE 2,500 UNIT in SODIUM CHLORIDE 0.9% 250 ML IRRIGATION PRN (07:00)
[2022-04-02] MEDS: ACETAMINOPHEN TAB 325 MG TAB PO PRN ×2 (07:14→21:16)
[2022-04-02] MEDS ORDERED: INSULIN DETEMIR (LEVEMIR) 100 UNIT/ML SYR SQ STA (07:28)
[2022-04-02] MEDS: ASPIRIN 81 MG PO SCH (08:18)
[2022-04-02] MEDS: ESCITALOPRAM 20 MG TAB PO SCH (08:18)
[2022-04-02] MEDS: METOPROLOL SUCCINATE (ER) 50 MG TAB.ER.24H PO SCH (08:18)
[2022-04-02] MEDS: POTASSIUM CHLORIDE ER 10 MEQ TAB.ER.PRT PO SCH (08:19)
[2022-04-02] MEDS: cilostazoL 100 MG TAB PO SCH ×2 (08:19→21:15)
[2022-04-02] MEDS: FERROUS SULFATE 325 MG TAB PO SCH (08:19)
[2022-04-02] MEDS: TICAGRELOR 90 MG TAB PO SCH ×2 (08:19→21:15)
[2022-04-02] MEDS: EZETIMIBE 10 MG TAB PO SCH (08:19)
[2022-04-02] MEDS: FUROSEMIDE 10 MG/ML 4 ML VIAL IV SCH (08:20)
[2022-04-02 08:27] LABS: Appearance,Urine Turbid (Clear); Bacteria,Urine Many /hpf; Bilirubin,Urine Negative (Negative); Blood,Urine Moderate (Negative); Budding Yeast,Urine Many /hpf; Color,Urine Yellow; Glucose,Urine (UA) Negative (Negative); Ketones,Urine Negative (Negative); Leukocyte Esterase,Urine Large (Negative); Mucus,Urine Few /hpf; Nitrite,Urine Negative (Negative); Protein,Urine Trace (Negative); RBC,Urine >182 /hpf (0-5); Squamous Epithelial Cell,Urine 4 /hpf (0-4); Urobilinogen,Urine <2.0 mg/dL (<2.0); WBC,Urine >182 /hpf (0-5)
[2022-04-02 08:57] LABS: HCT 27.1 % (34.0-46.0); HGB 8.5 gm/dL (11.4-16.0); Hypochromasia Marked; MCH 27.2 pg (25.0-35.0); MCHC 31.3 g/dL (31.0-37.0); MCV 86.9 fL (80.0-100.0); Mean Platelet Volume 8.9; Platelet Count 229 k/uL (150-450); RBC 3.12 m/uL (3.80-5.40); RDW 15.9 % (11.5-15.5); WBC 10.5 k/uL (3.8-10.6)
[2022-04-02] MEDS: IPRATROPIUM-ALBUTEROL 3 ML NEB INHALATION SCH ×4 (09:16→19:49)
[2022-04-02 10:01] LABS: Calcium 8.1 mg/dL (8.4-10.2); Potassium 4.6 mmol/L (3.5-5.1)
[2022-04-02] MEDS: MAG HYDROX/AL HYDROX/SIMETH 30 ML CUP PO PRN ×2 (10:53→18:33)
[2022-04-02 11:44] LABS: Glucose,Whole Blood 462 mg/dL (70-110)
--- NOTE | 2022-04-02 14:48 | P.PN ---
Subjective Progress Note Date: 04/02/22 Patient is a pleasant 67-year-old female patient with past medical history significant for coronary artery disease s/p PCI mid RCA 02/2016, history of nonischemic cardiomyopathy and status post AICD, peripheral artery disease s/p stenting of proximal right anterior tibial artery, hypertension,type 2 diabetes, and dyslipidemia. She follows in the office with Dr. Nagel. She presented to the emergency room complaining of shortness of breath and generalized fatigue. She was found to have an NSTEMI and cardiomyopathy, echocardiogram revealed an EF of 2025 % mild mitral regurgitation, RVSP of 36 mmHg. 03/30- Patient underwent cardiac catheterization with Dr. Steen that revealed Critical disease involving the proximal and mid and distal RCA with thrombotic lesion and calcified vessel, Chronic total occlusion of the LAD which is a known finding from before, Chronic total occlusion of the LCx which is also a known finding from before, Severely elevated left-sided filling pressure with LVEDP of 30 mmHg. She underwent PCI to distal RCA, mid RCA and proximal RCA. 04/01. Patient seen and examined. Complaining of right shoulder pain as well as some chest discomfort that started after breakfast this morning. EKG shows atrial flutter. Cardiology evaluated the patient, planning to take the patient for cardiac cath 04/02. Patient seen and examined. Chest pain has resolved. Complaining of urinary retention. Complaining of dysuria as well. Denies any lightheadedness or dizziness. Vital signs stable REVIEW OF SYSTEMS: CONSTITUTIONAL: No fever, no malaise,. CARDIOVASCULAR: As mentioned in HPI PULMONARY: No shortness of breath, no cough, GASTROINTESTINAL: No diarrhea, no nausea, no vomiting, no abdominal pain. NEUROLOGICAL: No headaches, no weakness, PHYSICAL EXAMINATION: GENERAL: The patient is alert and oriented x3, not in any acute distress. Well d eveloped, well nourished. HEENT: Pupils are round and equally reacting to light. EOMI. No scleral icterus. No conjunctival pallor. Normocephalic, atraumatic. No pharyngeal erythema. No thyromegaly. CARDIOVASCULAR: S1 and S2 present. No murmurs, rubs, or gallops. PULMONARY: Chest is clear to auscultation, no wheezing or crackles. ABDOMEN: Soft, nontender, nondistended, normoactive bowel sounds. No palpable organomegaly. MUSCULOSKELETAL: No joint swelling or deformity. EXTREMITIES: No cyanosis, clubbing, or pedal edema. NEUROLOGICAL: Gross neurological examination did not reveal any focal deficits. SKIN: No rashes. Assessment and plan NSTEMI Status post PCI distal RCA, mid RCA and proximal RCA on 03/30 Coronary artery disease with Chronic total occlusion of the LAD which is a known finding from before, Chronic total occlusion of the LCx which is also a known finding from before Acute on chronic heart failure with reduced ejection fraction Ischemic cardiomyopathy EF 20-25% History of AICD placement Peripheral artery disease s/p stenting of proximal right anterior tibial artery Hypertension Type 2 diabetes Dyslipidemia Recurrent chest pain, shoulder pain 04/01 concerning for angina PLAN Monitor vital signs Monitor CBC Continue telemetry monitoring Moderate renal functions Continue dual antiplatelet therapy with aspirin and Brilinta Continue statin, Zetia, metoprolol succinate Patient had repeat cardiac cath done on 04/01, showed stable coronary disease in cluding 50% LAD, 100% proximal circumflex, mild luminal irregularities of the RCA Patent RCA stents, cardiology recommended continuing current medical therapy UA reviewed, patient is complaining of dysuria, start patient on IV Rocephin DVT prophylaxis: Objective - Vital Signs Vital signs: Vital Signs Temp 98.5 F 04/02/22 08:12 Pulse 98 04/02/22 14:16 Resp 18 04/02/22 14:16 BP 107/63 04/02/22 12:17 Pulse Ox 97 04/02/22 12:17 FiO2 21 03/29/22 21:37 Intake & Output 04/01/22 04/02/22 04/02/22 18:59 06:59 18:59 Intake Total 168 597 Output Total 350 650 Balance 168 -350 -53 Intake: IV 50 Oral 118 597 Output: Urine 350 650 Straight 350 650 Other: Voiding Method External Catheter External Catheter External Catheter - Labs CBC & Chem 7: 04/02/22 08:27 04/02/22 08:27 Labs: Abnormal Lab Results - Last 24 Hours (Table) 04/01/22 04/01/22 04/01/22 Range/Units 16:52 16:52 20:15 RBC (3.80-5.40) m/uL Hgb (11.4-16.0) gm/dL Hct (34.0-46.0) % RDW (11.5-15.5) % Sodium (137-145) mmol/L Carbon Dioxide (22-30) mmol/L BUN (7-17) mg/dL Creatinine (0.52-1.04) mg/dL Glucose (74-99) mg/dL POC Glucose (mg/dL) 528 H 521 H 497 H (70-110) mg/dL Calcium (8.4-10.2) mg/dL Urine Appearance (Clear) Urine Protein (Negative) Urine Blood (Negative) Ur Leukocyte Esterase (Negative) Urine RBC (0-5) /hpf Urine WBC (0-5) /hpf Urine Bacteria (None) /hpf Urine Mucus (None) /hpf Urine Yeast (Budding) (None) /hpf 04/02/22 04/02/22 04/02/22 Range/Units 05:46 07:05 08:27 RBC 3.12 L (3.80-5.40) m/uL Hgb 8.5 L (11.4-16.0) gm/dL Hct 27.1 L (34.0-46.0) % RDW 15.9 H (11.5-15.5) % Sodium (137-145) mmol/L Carbon Dioxide (22-30) mmol/L BUN (7-17) mg/dL Creatinine (0.52-1.04) mg/dL Glucose (74-99) mg/dL POC Glucose (mg/dL) 420 H (70-110) mg/dL Calcium (8.4-10.2) mg/dL Urine Appearance Turbid H (Clear) Urine Protein Trace H (Negative) Urine Blood Moderate H (Negative) Ur Leukocyte Esterase Large H (Negative) Urine RBC >182 H (0-5) /hpf Urine WBC >182 H (0-5) /hpf Urine Bacteria Many H (None) /hpf Urine Mucus Few H (None) /hpf Urine Yeast (Budding) Many H (None) /hpf 04/02/22 04/02/22 Range/Units 08:27 11:43 RBC (3.80-5.40) m/uL Hgb (11.4-16.0) gm/dL Hct (34.0-46.0) % RDW (11.5-15.5) % Sodium 129 L (137-145) mmol/L Carbon Dioxide 19 L (22-30) mmol/L BUN 52 H (7-17) mg/dL Creatinine 1.94 H (0.52-1.04) mg/dL Glucose 403 H (74-99) mg/dL POC Glucose (mg/dL) 462 H (70-110) mg/dL Calcium 8.1 L (8.4-10.2) mg/dL Urine Appearance (Clear) Urine Protein (Negative) Urine Blood (Negative) Ur Leukocyte Esterase (Negative) Urine RBC (0-5) /hpf Urine WBC (0-5) /hpf Urine Bacteria (None) /hpf Urine Mucus (None) /hpf Urine Yeast (Budding) (None) /hpf Microbiology - Last 24 Hours (Table) 04/02/22 07:05 Urine Culture - Preliminary Urine,Voided
--- NOTE | 2022-04-02 16:06 | P.PN ---
Subjective HISTORY OF PRESENTING ILLNESS This is a pleasant 67-year-old female patient with past medical history significant for coronary artery disease s/p PCI mid RCA 02/2016, history of nonischemic cardiomyopathy and status post AICD, peripheral artery disease s/p stenting of proximal right anterior tibial artery, hypertension,type 2 diabetes, and dyslipidemia. She follows in the office with Dr. Nagel. We are asked to see in consultation for CHF and elevated troponin. She presented to the emergency room complaining of shortness of breath and generalized fatigue. She was found to have an NSTEMI and cardiomyopathy, echocardiogram revealed an EF of 2025 % mild mitral regurgitation, RVSP of 36 mmHg. 03/30- Patient underwent cardiac catheterization with Dr. Steen that revealed Critical disease involving the proximal and mid and distal RCA with thrombotic lesion and calcified vessel, Chronic total occlusion of the LAD which is a known finding from before, Chronic total occlusion of the LCx which is also a known finding from before, Severely elevated left-sided filling pressure with LVEDP of 30 mmHg. She underwent PCI to distal RCA, mid RCA and proximal RCA. 03/31/2022 Patient seen and examined at bedside, no acute events overnight. Denies any chest pain. Breathing has improved. She endorses tiredness and fatigue. BP 116/72 HR 82. She continues to be on IV Lasix. -1.2L fluid balance. BUN 46, sCr 1.81 04/01 Patient seen and examined. Patient states she had been feeling fine however after breakfast this morning started having right shoulder pain, feeling somewhat nauseous, getting a headache and having some chest discomfort. She states his feels similar to her prior angina with the heart catheterization as well as with her prior stents in the past. EKG performed which shows reading of atrial flutter/tachycardia however appears to be sinus rhythm and on telemetry clear gradual rise in heart rate. Patient was given nitro with no improvement. 04/02 Patient seen and examined. Patient had recurrence of chest pain yesterday which felt similar to her prior angina and therefore repeat heart catheterization was performed with minimal amount of contrast. Catheterization showed patent stents with no significant change of 50% LAD lesion. She has been having some urinary retention and therefore Menjivar catheter was placed and appears to have a urinary tract infection. Denies any further chest pain. PHYSICAL EXAMINATION Vitals reviewed CONSTITUTIONAL: No apparent distress. HEENT: Head is normocephalic. No JVD. CHEST EXAMINATION: Lungs are mild crackles in the bases bilaterally to auscultation. No chest wall tenderness is noted on palpation or with deep breathing. HEART EXAMINATION: Regular rate and rhythm. S1, S2 heard. No murmurs, gallops or rub. ABDOMEN: Soft, nontender. Positive bowel sounds. EXTREMITIES: 2+ peripheral pulses, no lower extremity edema and no calf tenderness. NEUROLOGIC EXAMINATION: Patient is awake, alert and oriented x3. ASSESSMENT NSTEMI Status post PCI distal RCA, mid RCA and proximal RCA on 03/30 Coronary artery disease with Chronic total occlusion of the LAD which is a known finding from before, Chronic total occlusion of the LCx which is also a known finding from before Acute on chronic heart failure with reduced ejection fraction Ischemic cardiomyopathy EF 20-25% History of AICD placement Peripheral artery disease s/p stenting of proximal right anterior tibial artery Hypertension Type 2 diabetes Dyslipidemia Recurrent chest pain, shoulder pain 04/01 concerning for angina PLAN Continue dual antiplatelet therapy with aspirin and Brilinta Continue statin, Zetia, metoprolol succinate Patient with episode of chest pain which appeared similar to her prior angina and therefore catheterization was performed 04/01 with stable stents and no change. No further chest pain and chest pain may been related to anxiety Increasing creatinine likely related to urinary retention Continue with current supportive care. Objective - Vital Signs Vital signs: Vital Signs Temp 98.5 F 04/02/22 08:12 Pulse 98 04/02/22 14:16 Resp 18 04/02/22 14:16 BP 107/63 04/02/22 12:17 Pulse Ox 97 04/02/22 12:17 FiO2 21 03/29/22 21:37 Intake & Output 04/01/22 04/02/22 04/02/22 18:59 06:59 18:59 Intake Total 168 597 Output Total 350 650 Balance 168 -350 -53 Intake: IV 50 Oral 118 597 Output: Urine 350 650 Straight 350 650 Other: Voiding Method External Catheter External Catheter External Catheter - Labs CBC & Chem 7: 04/02/22 08:27 04/02/22 08:27 Labs: Abnormal Lab Results - Last 24 Hours (Table) 04/01/22 04/01/22 04/01/22 Range/Units 16:52 16:52 20:15 RBC (3.80-5.40) m/uL Hgb (11.4-16.0) gm/dL Hct (34.0-46.0) % RDW (11.5-15.5) % Sodium (137-145) mmol/L Carbon Dioxide (22-30) mmol/L BUN (7-17) mg/dL Creatinine (0.52-1.04) mg/dL Glucose (74-99) mg/dL POC Glucose (mg/dL) 528 H 521 H 497 H (70-110) mg/dL Calcium (8.4-10.2) mg/dL Urine Appearance (Clear) Urine Protein (Negative) Urine Blood (Negative) Ur Leukocyte Esterase (Negative) Urine RBC (0-5) /hpf Urine WBC (0-5) /hpf Urine Bacteria (None) /hpf Urine Mucus (None) /hpf Urine Yeast (Budding) (None) /hpf 04/02/22 04/02/22 04/02/22 Range/Units 05:46 07:05 08:27 RBC 3.12 L (3.80-5.40) m/uL Hgb 8.5 L (11.4-16.0) gm/dL Hct 27.1 L (34.0-46.0) % RDW 15.9 H (11.5-15.5) % Sodium (137-145) mmol/L Carbon Dioxide (22-30) mmol/L BUN (7-17) mg/dL Creatinine (0.52-1.04) mg/dL Glucose (74-99) mg/dL POC Glucose (mg/dL) 420 H (70-110) mg/dL Calcium (8.4-10.2) mg/dL Urine Appearance Turbid H (Clear) Urine Protein Trace H (Negative) Urine Blood Moderate H (Negative) Ur Leukocyte Esterase Large H (Negative) Urine RBC >182 H (0-5) /hpf Urine WBC >182 H (0-5) /hpf Urine Bacteria Many H (None) /hpf Urine Mucus Few H (None) /hpf Urine Yeast (Budding) Many H (None) /hpf 04/02/22 04/02/22 Range/Units 08:27 11:43 RBC (3.80-5.40) m/uL Hgb (11.4-16.0) gm/dL Hct (34.0-46.0) % RDW (11.5-15.5) % Sodium 129 L (137-145) mmol/L Carbon Dioxide 19 L (22-30) mmol/L BUN 52 H (7-17) mg/dL Creatinine 1.94 H (0.52-1.04) mg/dL Glucose 403 H (74-99) mg/dL POC Glucose (mg/dL) 462 H (70-110) mg/dL Calcium 8.1 L (8.4-10.2) mg/dL Urine Appearance (Clear) Urine Protein (Negative) Urine Blood (Negative) Ur Leukocyte Esterase (Negative) Urine RBC (0-5) /hpf Urine WBC (0-5) /hpf Urine Bacteria (None) /hpf Urine Mucus (None) /hpf Urine Yeast (Budding) (None) /hpf Microbiology - Last 24 Hours (Table) 04/02/22 07:05 Urine Culture - Preliminary Urine,Voided
--- NOTE | 2022-04-02 16:23 | P.PN ---
Subjective Progress Note Date: 04/02/22 This is a 67-year-old male patient was being seen for a follow-up. We saw this patient in consultation for shortness of breath. The patient is known to have CAD and the patient has undergone previous coronary intervention and stenting. He is also known to have congestion heart failure. He has an AICD in place. His other comorbid conditions include bronchial asthma, chronic stage III kidney disease her creatinine is at 1.7. The patient also has history of fibromyalgia, diabetes mellitus, acid reflux, hyperlipidemia as comorbid conditions. The patient is known to have CAD. In this current admission, the troponin peaked at 3.44. The chest x-ray was consistent with CHF. The patient is currently on IV heparin. PTT is therapeutic for now. The patient is also on Lasix 40 mg IV every 24 hours for diuresis. The patient is on aspirin and Plavix. The patient is on metoprolol 50 mg by mouth daily. Echocardiogram is still pending for now patient is resting comfortably in bed at 2 L/m nasal cannula. The patient is awaiting a cardiology evaluation. EKG showed normal evidence of any ST segment elevation. ProBNP level was elevated at 3450. The patient is seen today 03/30/2022 in follow-up on the elective care unit. She is currently resting comfortably in bed. Awake and alert in no acute distress. White count 9.3. Hemoglobin 9.3. Sodium 131. Potassium 5.0. BUN 43. Creatinine 1.89. Glucose 217. Troponins 26.5, 21.5. She did undergo cardiac catheterization and subsequent stenting of the distal right coronary artery, mid right coronary artery and proximal right coronary artery. She is resting flat in bed. Denies any chest pain. No palpitations. No worsening shortness of breath. She is maintaining good O2 saturations up to 100% on 2 L/m per nasal cannula. Afebrile. Hemodynamically stable. The patient is seen today 03/31/2000 and follow-up on the selective care unit. She is currently sitting up in bed. Awake and alert in no acute distress. She denies any worsening shortness of breath, cough or congestion. No chest pain. She mainly complains of fatigue. She is somewhat dyspneic on minimal exertion. The patient is maintaining O2 saturations in the 90s on 2 L/m per nasal cannula. White count 8.2. Hemoglobin 9.3. Platelets 191. Sodium 133. Potassium 4.4. Bicarb 21. BUN 46. Creatinine 1.82. Glucose 180. She remains on DuoNeb inhalations. 04/01/2022, clinically improved and the patient is feeling less short of breath compared to yesterday. However, the patient was having some chest pain and there was a concern forangina or palpitations related to stenting. The patient underwent another cardiac catheterization and the patient was found to have stable coronary artery disease with 50% LAD lesion, 100% proximal circumflex lesion and minimal luminal irregularities of the RCA. There is stents were essentially patent. As far as such aggressive risk factor modification was recommended. Patient will be kept on bronchodilators and steroids. The steroids optimize her COPD over the past 24 hours. BUN is 45 with a creatinine 1.6 and a sodium level is at 132. We'll watch for any contrast nephropathy. On 04/02/2022, the patient is resting comfortably in bed. Her condition is stable. Her COPD was being treated with accommodation of bronchodilators and the patient was also on IV Solu-Medrol which will be tapered off today. The patient was receiving 60 mg of IV Solu-Medrol every 6 hours. No chest pain. Less short of breath. She is feeling weak and tired. Her legs are quite weak and the patient was given by the boots to prevent heel ulceration. The white cell cause of 10.5 with a hemoglobin of 8.5. The patient's sodium level is at 129 and the patient is also developed an acute elevation of the creatinine which is up to 1.94 and the BUN is currently at 52. She is post cardiac catheterization that showed no evidence of any stent occlusion. UA is abnormal. Urine culture is pending. The patient remains on IV Rocephin. Objective - Vital Signs Vital signs: Vital Signs Temp 98.5 F 04/02/22 08:12 Pulse 98 04/02/22 14:16 Resp 18 04/02/22 14:16 BP 107/63 04/02/22 12:17 Pulse Ox 97 04/02/22 12:17 FiO2 21 03/29/22 21:37 Intake & Output 04/01/22 04/02/22 04/02/22 18:59 06:59 18:59 Intake Total 168 597 Output Total 350 650 Balance 168 -350 -53 Intake: IV 50 Oral 118 597 Output: Urine 350 650 Straight 350 650 Other: Voiding Method External Catheter External Catheter External Catheter - Exam GENERAL EXAM: Alert, pleasant 67-year-old female, sitting up in bed, on 2 L nasal cannula, comfortable in no apparent distress. HEAD: Normocephalic. EYES: Normal reaction of pupils, equal size. NOSE: Clear with pink turbinates. THROAT: No erythema or exudates. NECK: No masses, no JVD. CHEST: No chest wall deformity. LUNGS: Equal air entry with faint end expiratory wheeze bilaterally, diminished. CVS: S1 and S2 normal with no audible murmur, regular rhythm. ABDOMEN: No hepatosplenomegaly, normal bowel sounds, no guarding or rigidity. SPINE: No scoliosis or deformity SKIN: No rashes CENTRAL NERVOUS SYSTEM: No focal deficits, tone is normal in all 4 extremities. EXTREMITIES: There is no peripheral edema. No clubbing, no cyanosis. Peripheral pulses are intact. - Labs CBC & Chem 7: 04/02/22 08:27 04/02/22 08:27 Labs: Abnormal Lab Results - Last 24 Hours (Table) 04/01/22 04/01/22 04/01/22 Range/Units 16:52 16:52 20:15 RBC (3.80-5.40) m/uL Hgb (11.4-16.0) gm/dL Hct (34.0-46.0) % RDW (11.5-15.5) % Sodium (137-145) mmol/L Carbon Dioxide (22-30) mmol/L BUN (7-17) mg/dL Creatinine (0.52-1.04) mg/dL Glucose (74-99) mg/dL POC Glucose (mg/dL) 528 H 521 H 497 H (70-110) mg/dL Calcium (8.4-10.2) mg/dL Urine Appearance (Clear) Urine Protein (Negative) Urine Blood (Negative) Ur Leukocyte Esterase (Negative) Urine RBC (0-5) /hpf Urine WBC (0-5) /hpf Urine Bacteria (None) /hpf Urine Mucus (None) /hpf Urine Yeast (Budding) (None) /hpf 04/02/22 04/02/22 04/02/22 Range/Units 05:46 07:05 08:27 RBC 3.12 L (3.80-5.40) m/uL Hgb 8.5 L (11.4-16.0) gm/dL Hct 27.1 L (34.0-46.0) % RDW 15.9 H (11.5-15.5) % Sodium (137-145) mmol/L Carbon Dioxide (22-30) mmol/L BUN (7-17) mg/dL Creatinine (0.52-1.04) mg/dL Glucose (74-99) mg/dL POC Glucose (mg/dL) 420 H (70-110) mg/dL Calcium (8.4-10.2) mg/dL Urine Appearance Turbid H (Clear) Urine Protein Trace H (Negative) Urine Blood Moderate H (Negative) Ur Leukocyte Esterase Large H (Negative) Urine RBC >182 H (0-5) /hpf Urine WBC >182 H (0-5) /hpf Urine Bacteria Many H (None) /hpf Urine Mucus Few H (None) /hpf Urine Yeast (Budding) Many H (None) /hpf 04/02/22 04/02/22 Range/Units 08:27 11:43 RBC (3.80-5.40) m/uL Hgb (11.4-16.0) gm/dL Hct (34.0-46.0) % RDW (11.5-15.5) % Sodium 129 L (137-145) mmol/L Carbon Dioxide 19 L (22-30) mmol/L BUN 52 H (7-17) mg/dL Creatinine 1.94 H (0.52-1.04) mg/dL Glucose 403 H (74-99) mg/dL POC Glucose (mg/dL) 462 H (70-110) mg/dL Calcium 8.1 L (8.4-10.2) mg/dL Urine Appearance (Clear) Urine Protein (Negative) Urine Blood (Negative) Ur Leukocyte Esterase (Negative) Urine RBC (0-5) /hpf Urine WBC (0-5) /hpf Urine Bacteria (None) /hpf Urine Mucus (None) /hpf Urine Yeast (Budding) (None) /hpf Microbiology - Last 24 Hours (Table) 04/02/22 07:05 Urine Culture - Preliminary Urine,Voided Assessment and Plan Assessment: Acute shortness of breath, most likely related to non-ST segment elevation myocardial infarction. Status post stenting 3 to the RCA in 03/30/2022, repeat cardiac catheterization from today showed patent coronary stent involving the RCA. The patient remains free of any chest pain Acute hypoxic respiratory failure secondary to acute systolic congestive heart failure with an ejection fraction of 20-25%. Patient is currently on 2 L of oxy gen by nasal cannula COPD exacerbation currently on bronchodilators and steroids, improving Previous history of PCI with stent placement. History of CHF. History of diabetes mellitus. History of hypertension. History of hyperlipidemia. Prior history of myocardial infarction. Stage III chronic kidney disease with a component of an acute kidney injury and acute hyponatremia AICD placement. Suspect UTI Multiple other medical problems and comorbidities. Plan: Taper the Solu-Medrol to 4 L every 12 hours Continue bronchodilators Stop the Lasix Monitor renal function and electrolytes T IV Rocephin for suspected UTI Increase her activity as tolerated Follow-up chest x-ray in a.m. from today shows interval resolution of the colovesical congestion in a patient can be switched to oral Lasix as of tomorrow Watch for any contrast nephropathy We'll continue to follow
[2022-04-02 16:51] LABS: Glucose,Whole Blood 379 mg/dL (70-110)
[2022-04-02 20:37] LABS: Glucose,Whole Blood 318 mg/dL (70-110)
[2022-04-02] MEDS: ALPRAZolam 0.25 MG TAB PO SCH (21:15)
[2022-04-02] MEDS: CYCLOBENZAPRINE 10 MG TAB PO SCH (21:15)
[2022-04-02] MEDS: methylPREDNISolone SOD SUCCI 40 MG/ML 1 ML VIAL IV SCH (21:15)
[2022-04-02] MEDS: GABAPENTIN 300 MG CAP PO SCH (21:16)
[2022-04-03] MEDS: SODIUM CHLORIDE 0.9% 1,000 ML in EMPTY BAG 1 BAG IV SCH ×2 (05:15→16:53)
[2022-04-03 06:26] LABS: Glucose,Whole Blood 336 mg/dL (70-110)
[2022-04-03] MEDS: INSULIN ASPART (NovoLOG) 100 UNIT/ML VIAL SQ SCH ×7 (06:34→20:30)
[2022-04-03] MEDS: INSULIN DETEMIR (LEVEMIR) 100 UNIT/ML SYR SQ SCH (06:34)
[2022-04-03] MEDS: PANTOPRAZOLE 40 MG TABLET PO SCH (06:34)
[2022-04-03] MEDS: MAG HYDROX/AL HYDROX/SIMETH 30 ML CUP PO PRN ×2 (06:49→20:34)
[2022-04-03] MEDS: IPRATROPIUM-ALBUTEROL 3 ML NEB INHALATION SCH ×4 (07:42→20:37)
[2022-04-03] MEDS: POTASSIUM CHLORIDE ER 10 MEQ TAB.ER.PRT PO SCH (09:06)
[2022-04-03] MEDS: METOPROLOL SUCCINATE (ER) 50 MG TAB.ER.24H PO SCH (09:06)
[2022-04-03] MEDS: ASPIRIN 81 MG PO SCH (09:06)
[2022-04-03] MEDS: ESCITALOPRAM 20 MG TAB PO SCH (09:06)
[2022-04-03] MEDS: EZETIMIBE 10 MG TAB PO SCH (09:06)
[2022-04-03] MEDS: FERROUS SULFATE 325 MG TAB PO SCH (09:06)
[2022-04-03] MEDS: TICAGRELOR 90 MG TAB PO SCH ×2 (09:07→20:29)
[2022-04-03] MEDS: cilostazoL 100 MG TAB PO SCH ×2 (09:07→20:29)
[2022-04-03] MEDS: methylPREDNISolone SOD SUCCI 40 MG/ML 1 ML VIAL IV SCH (09:08)
[2022-04-03 09:27] LABS: Anisocytosis Slight; Basophils % (A) 0 %; Eosinophils # (A) 0.1 k/uL (0-0.7); Eosinophils % (A) 1 %; HGB 9.1 gm/dL (11.4-16.0); Hypochromasia Moderate; Lymphocytes # (A) 0.4 k/uL (1.0-4.8); Lymphocytes % (A) 3 %; MCH 27.8 pg (25.0-35.0); MCHC 32.5 g/dL (31.0-37.0); MCV 85.6 fL (80.0-100.0); Mean Platelet Volume 8.5; Monocytes # (A) 0.7 k/uL (0-1.0); Monocytes % (A) 5 %; Neutrophils # (A) 12.1 k/uL (1.3-7.7); Neutrophils % (A) 91 %; Platelet Count 291 k/uL (150-450); RBC 3.27 m/uL (3.80-5.40); RDW 16.1 % (11.5-15.5); WBC 13.4 k/uL (3.8-10.6)
[2022-04-03 11:44] LABS: Glucose,Whole Blood 335 mg/dL (70-110)
--- NOTE | 2022-04-03 14:24 | P.PN ---
Subjective Progress Note Date: 04/03/22 Patient is a pleasant 67-year-old female patient with past medical history significant for coronary artery disease s/p PCI mid RCA 02/2016, history of nonischemic cardiomyopathy and status post AICD, peripheral artery disease s/p stenting of proximal right anterior tibial artery, hypertension,type 2 diabetes, and dyslipidemia. She follows in the office with Dr. Nagel. She presented to the emergency room complaining of shortness of breath and generalized fatigue. She was found to have an NSTEMI and cardiomyopathy, echocardiogram revealed an EF of 2025 % mild mitral regurgitation, RVSP of 36 mmHg. 03/30- Patient underwent cardiac catheterization with Dr. Steen that revealed Critical disease involving the proximal and mid and distal RCA with thrombotic lesion and calcified vessel, Chronic total occlusion of the LAD which is a known finding from before, Chronic total occlusion of the LCx which is also a known finding from before, Severely elevated left-sided filling pressure with LVEDP of 30 mmHg. She underwent PCI to distal RCA, mid RCA and proximal RCA. 04/01. Patient seen and examined. Complaining of right shoulder pain as well as some chest discomfort that started after breakfast this morning. EKG shows atrial flutter. Cardiology evaluated the patient, planning to take the patient for cardiac cath 04/02. Patient seen and examined. Chest pain has resolved. Complaining of urinary retention. Complaining of dysuria as well. Denies any lightheadedness or dizziness. Vital signs stable 04/03. Patient seen and examined. States she feels better than yesterday, shortness of breath is improving. No chest pain. Vital signs stable REVIEW OF SYSTEMS: CONSTITUTIONAL: No fever, no malaise,. CARDIOVASCULAR: As mentioned in HPI PULMONARY: No shortness of breath, no cough, GASTROINTESTINAL: No diarrhea, no nausea, no vomiting, no abdominal pain. NEUROLOGICAL: No headaches, no weakness, PHYSICAL EXAMINATION: GENERAL: The patient is alert and oriented x3, not in any acute distress. Well developed, well nourished. HEENT: Pupils are round and equally reacting to light. EOMI. No scleral icterus. No conjunctival pallor. Normocephalic, atraumatic. No pharyngeal erythema. No thyromegaly. CARDIOVASCULAR: S1 and S2 present. No murmurs, rubs, or gallops. PULMONARY: Chest is clear to auscultation, no wheezing or crackles. ABDOMEN: Soft, nontender, nondistended, normoactive bowel sounds. No palpable organomegaly. MUSCULOSKELETAL: No joint swelling or deformity. EXTREMITIES: No cyanosis, clubbing, or pedal edema. NEUROLOGICAL: Gross neurological examination did not reveal any focal deficits. SKIN: No rashes. Assessment and plan NSTEMI Status post PCI distal RCA, mid RCA and proximal RCA on 03/30 Coronary artery disease with Chronic total occlusion of the LAD which is a known finding from before, Chronic total occlusion of the LCx which is also a known finding from before Acute on chronic heart failure with reduced ejection fraction Ischemic cardiomyopathy EF 20-25% History of AICD placement Peripheral artery disease s/p stenting of proximal right anterior tibial artery Hypertension Type 2 diabetes Dyslipidemia Recurrent chest pain, shoulder pain 04/01 concerning for angina UTI PLAN Monitor vital signs Monitor CBC Continue telemetry monitoring Moderate renal functions Continue dual antiplatelet therapy with aspirin and Brilinta Continue statin, Zetia, metoprolol succinate Patient had repeat cardiac cath done on 04/01, showed stable coronary disease including 50% LAD, 100% proximal circumflex, mild luminal irregularities of the RCA Patent RCA stents, cardiology recommended continuing current medical therapy Continue IV Rocephin Continue current insulin regimen DVT prophylaxis: Objective - Vital Signs Vital signs: Vital Signs Temp 98.4 F 04/03/22 12:45 Pulse 108 H 04/03/22 12:45 Resp 16 04/03/22 12:45 BP 121/71 04/03/22 12:45 Pulse Ox 98 04/03/22 12:45 FiO2 21 03/29/22 21:37 Intake & Output 04/02/22 04/03/22 04/03/22 18:59 06:59 18:59 Intake Total 597 118 Output Total 1175 425 Balance -578 -425 118 Weight 90 kg Intake: Oral 597 118 Output: Urine 1175 425 Straight 1175 Other: Voiding Method External Catheter Indwelling Catheter Indwelling Catheter - Labs CBC & Chem 7: 04/03/22 08:59 04/02/22 08:27 Labs: Abnormal Lab Results - Last 24 Hours (Table) 04/02/22 04/02/22 04/03/22 Range/Units 16:50 20:35 06:24 WBC (3.8-10.6) k/uL RBC (3.80-5.40) m/uL Hgb (11.4-16.0) gm/dL Hct (34.0-46.0) % RDW (11.5-15.5) % Neutrophils # (1.3-7.7) k/uL Lymphocytes # (1.0-4.8) k/uL POC Glucose (mg/dL) 379 H 318 H 336 H (70-110) mg/dL 04/03/22 04/03/22 Range/Units 08:59 11:39 WBC 13.4 H (3.8-10.6) k/uL RBC 3.27 L (3.80-5.40) m/uL Hgb 9.1 L (11.4-16.0) gm/dL Hct 28.0 L (34.0-46.0) % RDW 16.1 H (11.5-15.5) % Neutrophils # 12.1 H (1.3-7.7) k/uL Lymphocytes # 0.4 L (1.0-4.8) k/uL POC Glucose (mg/dL) 335 H (70-110) mg/dL Microbiology - Last 24 Hours (Table) 04/02/22 07:05 Urine Culture - Final Urine,Voided
--- NOTE | 2022-04-03 15:58 | P.PN ---
Subjective Progress Note Date: 04/03/22 This is a 67-year-old male patient was being seen for a follow-up. We saw this patient in consultation for shortness of breath. The patient is known to have CAD and the patient has undergone previous coronary intervention and stenting. He is also known to have congestion heart failure. He has an AICD in place. His other comorbid conditions include bronchial asthma, chronic stage III kidney disease her creatinine is at 1.7. The patient also has history of fibromyalgia, diabetes mellitus, acid reflux, hyperlipidemia as comorbid conditions. The patient is known to have CAD. In this current admission, the troponin peaked at 3.44. The chest x-ray was consistent with CHF. The patient is currently on IV heparin. PTT is therapeutic for now. The patient is also on Lasix 40 mg IV every 24 hours for diuresis. The patient is on aspirin and Plavix. The patient is on metoprolol 50 mg by mouth daily. Echocardiogram is still pending for now patient is resting comfortably in bed at 2 L/m nasal cannula. The patient is awaiting a cardiology evaluation. EKG showed normal evidence of any ST segment elevation. ProBNP level was elevated at 3450. The patient is seen today 03/30/2022 in follow-up on the elective care unit. She is currently resting comfortably in bed. Awake and alert in no acute distress. White count 9.3. Hemoglobin 9.3. Sodium 131. Potassium 5.0. BUN 43. Creatinine 1.89. Glucose 217. Troponins 26.5, 21.5. She did undergo cardiac catheterization and subsequent stenting of the distal right coronary artery, mid right coronary artery and proximal right coronary artery. She is resting flat in bed. Denies any chest pain. No palpitations. No worsening shortness of breath. She is maintaining good O2 saturations up to 100% on 2 L/m per nasal cannula. Afebrile. Hemodynamically stable. The patient is seen today 03/31/2000 and follow-up on the selective care unit. She is currently sitting up in bed. Awake and alert in no acute distress. She denies any worsening shortness of breath, cough or congestion. No chest pain. She mainly complains of fatigue. She is somewhat dyspneic on minimal exertion. The patient is maintaining O2 saturations in the 90s on 2 L/m per nasal cannula. White count 8.2. Hemoglobin 9.3. Platelets 191. Sodium 133. Potassium 4.4. Bicarb 21. BUN 46. Creatinine 1.82. Glucose 180. She remains on DuoNeb inhalations. 04/01/2022, clinically improved and the patient is feeling less short of breath compared to yesterday. However, the patient was having some chest pain and there was a concern forangina or palpitations related to stenting. The patient underwent another cardiac catheterization and the patient was found to have stable coronary artery disease with 50% LAD lesion, 100% proximal circumflex lesion and minimal luminal irregularities of the RCA. There is stents were essentially patent. As far as such aggressive risk factor modification was recommended. Patient will be kept on bronchodilators and steroids. The steroids optimize her COPD over the past 24 hours. BUN is 45 with a creatinine 1.6 and a sodium level is at 132. We'll watch for any contrast nephropathy. On 04/02/2022, the patient is resting comfortably in bed. Her condition is stable. Her COPD was being treated with accommodation of bronchodilators and the patient was also on IV Solu-Medrol which will be tapered off today. The patient was receiving 60 mg of IV Solu-Medrol every 6 hours. No chest pain. Less short of breath. She is feeling weak and tired. Her legs are quite weak and the patient was given by the boots to prevent heel ulceration. The white cell cause of 10.5 with a hemoglobin of 8.5. The patient's sodium level is at 129 and the patient is also developed an acute elevation of the creatinine which is up to 1.94 and the BUN is currently at 52. She is post cardiac catheterization that showed no evidence of any stent occlusion. UA is abnormal. Urine culture is pending. The patient remains on IV Rocephin. 04/03/2022, the patient is resting comfortably in bed. No significant complaints. No chest pain. Remains on DuoNeb about treatments [id number] and IV Solu-Medrol regarding his COPD exacerbation. She has no angina. She has undergone stenting to the RCA and repeat cardiac catheterization was done that showed patent stents. She is on 2 L of O2 nasal cannula. She is profoundly weak and even at baseline and the patient has been moving around with the help of wheelchairs. She wants ultimately go home. She is not interested in ECF. The patient's white cell count today's of 13.4 with a hemoglobin of 9.1. The sugars are elevated because of systemic steroids. Urinalysis was also abnormal and the patient is currently on IV Rocephin. In terms of blood sugar control, the patient is on Levemir insulin 30 units in the patient is also on NovoLog 8 units with meals and a sliding scale coverage. Objective - Vital Signs Vital signs: Vital Signs Temp 98.4 F 04/03/22 12:45 Pulse 92 04/03/22 15:23 Resp 16 04/03/22 12:45 BP 121/71 04/03/22 12:45 Pulse Ox 98 04/03/22 12:45 FiO2 21 03/29/22 21:37 Intake & Output 04/02/22 04/03/22 04/03/22 18:59 06:59 18:59 Intake Total 597 118 Output Total 1175 425 Balance -578 -425 118 Weight 90 kg Intake: Oral 597 118 Output: Urine 1175 425 Straight 1175 Other: Voiding Method External Catheter Indwelling Catheter Indwelling Catheter - Exam GENERAL EXAM: Alert, pleasant 67-year-old female, sitting up in bed, on 2 L nasal cannula, comfortable in no apparent distress. HEAD: Normocephalic. EYES: Normal reaction of pupils, equal size. NOSE: Clear with pink turbinates. THROAT: No erythema or exudates. NECK: No masses, no JVD. CHEST: No chest wall deformity. LUNGS: Equal air entry with faint end expiratory wheeze bilaterally, diminished. CVS: S1 and S2 normal with no audible murmur, regular rhythm. ABDOMEN: No hepatosplenomegaly, normal bowel sounds, no guarding or rigidity. SPINE: No scoliosis or deformity SKIN: No rashes CENTRAL NERVOUS SYSTEM: No focal deficits, tone is normal in all 4 extremities. EXTREMITIES: There is no peripheral edema. No clubbing, no cyanosis. Peripheral pulses are intact. - Labs CBC & Chem 7: 04/03/22 08:59 04/02/22 08:27 Labs: Abnormal Lab Results - Last 24 Hours (Table) 04/02/22 04/02/22 04/03/22 Range/Units 16:50 20:35 06:24 WBC (3.8-10.6) k/uL RBC (3.80-5.40) m/uL Hgb (11.4-16.0) gm/dL Hct (34.0-46.0) % RDW (11.5-15.5) % Neutrophils # (1.3-7.7) k/uL Lymphocytes # (1.0-4.8) k/uL POC Glucose (mg/dL) 379 H 318 H 336 H (70-110) mg/dL 04/03/22 04/03/22 Range/Units 08:59 11:39 WBC 13.4 H (3.8-10.6) k/uL RBC 3.27 L (3.80-5.40) m/uL Hgb 9.1 L (11.4-16.0) gm/dL Hct 28.0 L (34.0-46.0) % RDW 16.1 H (11.5-15.5) % Neutrophils # 12.1 H (1.3-7.7) k/uL Lymphocytes # 0.4 L (1.0-4.8) k/uL POC Glucose (mg/dL) 335 H (70-110) mg/dL Microbiology - Last 24 Hours (Table) 04/02/22 07:05 Urine Culture - Final Urine,Voided Assessment and Plan Assessment: Acute shortness of breath, most likely related to non-ST segment elevation myocardial infarction. Status post stenting 3 to the RCA in 03/30/2022, repeat cardiac catheterization from today showed patent coronary stent involving the RCA. The patient remains free of any chest pain Acute hypoxic respiratory failure secondary to acute systolic congestive heart failure with an ejection fraction of 20-25%. Patient is currently on 2 L of oxygen by nasal cannula COPD exacerbation currently on bronchodilators and steroids, improving Previous history of PCI with stent placement. History of CHF. History of diabetes mellitus. History of hypertension. History of hyperlipidemia. Prior history of myocardial infarction. Stage III chronic kidney disease with a component of an acute kidney injury and acute hyponatremia AICD placement. Suspect UTI Multiple other medical problems and comorbidities. Plan: Discontinue the IV Solu-Medrol and put the patient 30 mg of prednisone as part of a burst taper Continue bronchodilators Stop the Lasix, awaiting renal function from today Monitor renal function and electrolytes Suspect UTI and the patient is currently on IV Rocephin for suspected UTI Increase her activity as tolerated Follow-up chest x-ray in a.m. from today shows interval resolution of the pulmonary congestion We'll continue to follow
--- NOTE | 2022-04-03 16:26 | P.PN ---
Subjective HISTORY OF PRESENTING ILLNESS This is a pleasant 67-year-old female patient with past medical history significant for coronary artery disease s/p PCI mid RCA 02/2016, history of nonischemic cardiomyopathy and status post AICD, peripheral artery disease s/p stenting of proximal right anterior tibial artery, hypertension,type 2 diabetes, and dyslipidemia. She follows in the office with Dr. Nagel. We are asked to see in consultation for CHF and elevated troponin. She presented to the emergency room complaining of shortness of breath and generalized fatigue. She was found to have an NSTEMI and cardiomyopathy, echocardiogram revealed an EF of 2025 % mild mitral regurgitation, RVSP of 36 mmHg. 03/30- Patient underwent cardiac catheterization with Dr. Steen that revealed Critical disease involving the proximal and mid and distal RCA with thrombotic lesion and calcified vessel, Chronic total occlusion of the LAD which is a known finding from before, Chronic total occlusion of the LCx which is also a known finding from before, Severely elevated left-sided filling pressure with LVEDP of 30 mmHg. She underwent PCI to distal RCA, mid RCA and proximal RCA. 03/31/2022 Patient seen and examined at bedside, no acute events overnight. Denies any chest pain. Breathing has improved. She endorses tiredness and fatigue. BP 116/72 HR 82. She continues to be on IV Lasix. -1.2L fluid balance. BUN 46, sCr 1.81 04/01 Patient seen and examined. Patient states she had been feeling fine however after breakfast this morning started having right shoulder pain, feeling somewhat nauseous, getting a headache and having some chest discomfort. She states his feels similar to her prior angina with the heart catheterization as well as with her prior stents in the past. EKG performed which shows reading of atrial flutter/tachycardia however appears to be sinus rhythm and on telemetry clear gradual rise in heart rate. Patient was given nitro with no improvement. 04/02 Patient seen and examined. Patient had recurrence of chest pain yesterday which felt similar to her prior angina and therefore repeat heart catheterization was performed with minimal amount of contrast. Catheterization showed patent stents with no significant change of 50% LAD lesion. She has been having some urinary retention and therefore Menjivar catheter was placed and appears to have a urinary tract infection. Denies any further chest pain. 04/03 Patient seen and examined. Patient states she feels well without any further chest pain however does still have some mild dyspnea. She has remained mildly tachycardic with heart rates 100-110 and still in atrial flutter with 2-1 conduction on monitor. Remains on the metoprolol 50 mg. Borderline blood pressures in the 120s to 130s systolic. PHYSICAL EXAMINATION Vitals reviewed CONSTITUTIONAL: No apparent distress. HEENT: Head is normocephalic. No JVD. CHEST EXAMINATION: Lungs are mild crackles in the bases bilaterally to auscultation. No chest wall tenderness is noted on palpation or with deep breat megan. HEART EXAMINATION: Regular rate and rhythm. S1, S2 heard. No murmurs, gallops or rub. ABDOMEN: Soft, nontender. Positive bowel sounds. EXTREMITIES: 2+ peripheral pulses, no lower extremity edema and no calf tenderness. NEUROLOGIC EXAMINATION: Patient is awake, alert and oriented x3. ASSESSMENT NSTEMI Status post PCI distal RCA, mid RCA and proximal RCA on 03/30 Coronary artery disease with Chronic total occlusion of the LAD which is a known finding from before, Chronic total occlusion of the LCx which is also a known finding from before Acute on chronic heart failure with reduced ejection fraction Ischemic cardiomyopathy EF 20-25% History of AICD placement Peripheral artery disease s/p stenting of proximal right anterior tibial artery Hypertension Type 2 diabetes Dyslipidemia Recurrent chest pain, shoulder pain 04/01 concerning for angina PLAN Continue dual antiplatelet therapy with aspirin and Brilinta Continue statin, Zetia Increase metoprolol succinate to 75mg daily and monitor BP's. Still mildly tachycardic with Aflutter and 2:1 conduction Patient with episode of chest pain which appeared similar to her prior angina and therefore catheterization was performed 04/01 with stable stents and no change. No further chest pain and chest pain may been related to anxiety Increasing creatinine likely related to urinary retention. Check repeat tomorrow Continue with current supportive care. Objective - Vital Signs Vital signs: Vital Signs Temp 98.4 F 04/03/22 12:45 Pulse 92 04/03/22 15:23 Resp 16 04/03/22 12:45 BP 121/71 04/03/22 12:45 Pulse Ox 98 04/03/22 12:45 FiO2 21 03/29/22 21:37 Intake & Output 04/02/22 04/03/22 04/03/22 18:59 06:59 18:59 Intake Total 597 118 Output Total 1175 425 Balance -578 -425 118 Weight 90 kg Intake: Oral 597 118 Output: Urine 1175 425 Straight 1175 Other: Voiding Method External Catheter Indwelling Catheter Indwelling Catheter - Labs CBC & Chem 7: 04/03/22 08:59 04/02/22 08:27 Labs: Abnormal Lab Results - Last 24 Hours (Table) 04/02/22 04/02/22 04/03/22 Range/Units 16:50 20:35 06:24 WBC (3.8-10.6) k/uL RBC (3.80-5.40) m/uL Hgb (11.4-16.0) gm/dL Hct (34.0-46.0) % RDW (11.5-15.5) % Neutrophils # (1.3-7.7) k/uL Lymphocytes # (1.0-4.8) k/uL POC Glucose (mg/dL) 379 H 318 H 336 H (70-110) mg/dL 04/03/22 04/03/22 Range/Units 08:59 11:39 WBC 13.4 H (3.8-10.6) k/uL RBC 3.27 L (3.80-5.40) m/uL Hgb 9.1 L (11.4-16.0) gm/dL Hct 28.0 L (34.0-46.0) % RDW 16.1 H (11.5-15.5) % Neutrophils # 12.1 H (1.3-7.7) k/uL Lymphocytes # 0.4 L (1.0-4.8) k/uL POC Glucose (mg/dL) 335 H (70-110) mg/dL Microbiology - Last 24 Hours (Table) 04/02/22 07:05 Urine Culture - Final Urine,Voided
[2022-04-03] MEDS ORDERED: METOPROLOL SUCCINATE (ER) 25 MG TAB.ER.24H PO STA (16:27)
[2022-04-03 16:51] LABS: Glucose,Whole Blood 320 mg/dL (70-110)
[2022-04-03 20:12] LABS: Glucose,Whole Blood 264 mg/dL (70-110)
[2022-04-03] MEDS: ALPRAZolam 0.25 MG TAB PO SCH (20:29)
[2022-04-03] MEDS: GABAPENTIN 300 MG CAP PO SCH (20:29)
[2022-04-03] MEDS: CYCLOBENZAPRINE 10 MG TAB PO SCH (20:29)
[2022-04-03] MEDS: ACETAMINOPHEN TAB 325 MG TAB PO PRN (20:29)
[2022-04-03] MEDS ORDERED: bisacodyL 10 MG SUPP RECTAL STA (20:54)
[2022-04-03] MEDS: SENNOSIDES 8.6 MG TAB PO SCH (21:46)
[2022-04-03] MEDS: ONDANSETRON 4 MG/2 ML VIAL IVP PRN (21:47)
[2022-04-04] MEDS: SODIUM CHLORIDE 0.9% 1,000 ML in EMPTY BAG 1 BAG IV SCH ×2 (02:15→12:07)
[2022-04-04 06:23] LABS: Glucose,Whole Blood 238 mg/dL (70-110)
[2022-04-04] MEDS: INSULIN DETEMIR (LEVEMIR) 100 UNIT/ML SYR SQ SCH (06:55)
[2022-04-04] MEDS: PANTOPRAZOLE 40 MG TABLET PO SCH (06:55)
[2022-04-04] MEDS: INSULIN ASPART (NovoLOG) 100 UNIT/ML VIAL SQ SCH ×7 (06:56→20:40)
[2022-04-04] MEDS: IPRATROPIUM-ALBUTEROL 3 ML NEB INHALATION SCH ×4 (07:20→20:31)
[2022-04-04] MEDS: METOPROLOL SUCCINATE (ER) 25 MG TAB.ER.24H PO SCH (08:26)
[2022-04-04] MEDS: SENNOSIDES 8.6 MG TAB PO SCH ×2 (08:26→20:40)
[2022-04-04] MEDS: predniSONE 10 MG TAB PO SCH (08:26)
[2022-04-04] MEDS: EZETIMIBE 10 MG TAB PO SCH (08:26)
[2022-04-04] MEDS: ESCITALOPRAM 20 MG TAB PO SCH (08:26)
[2022-04-04] MEDS: ASPIRIN 81 MG PO SCH (08:26)
[2022-04-04] MEDS: FERROUS SULFATE 325 MG TAB PO SCH (08:27)
[2022-04-04] MEDS: cilostazoL 100 MG TAB PO SCH ×2 (08:27→20:40)
[2022-04-04] MEDS: POTASSIUM CHLORIDE ER 10 MEQ TAB.ER.PRT PO SCH (08:27)
[2022-04-04] MEDS: TICAGRELOR 90 MG TAB PO SCH ×2 (08:27→20:40)
[2022-04-04 08:48] LABS: Basophils % (A) 0 %; Eosinophils % (A) 0 %; HCT 30.3 % (34.0-46.0); HGB 9.7 gm/dL (11.4-16.0); Hypochromasia Marked; Lymphocytes # (A) 0.9 k/uL (1.0-4.8); Lymphocytes % (A) 8 %; MCH 27.8 pg (25.0-35.0); MCHC 32.1 g/dL (31.0-37.0); MCV 86.5 fL (80.0-100.0); Mean Platelet Volume 8.3; Monocytes # (A) 0.6 k/uL (0-1.0); Monocytes % (A) 5 %; Neutrophils # (A) 10.1 k/uL (1.3-7.7); Neutrophils % (A) 86 %; Platelet Count 289 k/uL (150-450); RDW 15.9 % (11.5-15.5); WBC 11.7 k/uL (3.8-10.6)
[2022-04-04] MEDS: ONDANSETRON 4 MG/2 ML VIAL IVP PRN (08:49)
[2022-04-04 09:01] LABS: Albumin 3.6 g/dL (3.5-5.0); Calcium 8.5 mg/dL (8.4-10.2); Phosphorus 3.5 mg/dL (2.5-4.5); Potassium 4.7 mmol/L (3.5-5.1); Total Bilirubin 0.7 mg/dL (0.2-1.3); Total Protein 6.2 g/dL (6.3-8.2)
[2022-04-04 11:56] LABS: Glucose,Whole Blood 170 mg/dL (70-110)
--- NOTE | 2022-04-04 12:40 | P.GSCN ---
History of Present Illness Consult date: 04/04/22 Reason for Consult: Urinary Retention Requesting physician: Vlad Marie History of present illness: The patient is a 67-year-old white female with multiple medical problems, including cardiomyopathy (EF=20-25%) with congestive heart failure and peripheral vascular disease. During this hospitalization, she underwent cardiac catheterization which revealed critical disease involving multiple coronary vessels. She is so weak as a result of her cardiac disease that she is wheelchair-bound. She has been treated for 2-3 UTIs this year. She has no definite history of urolithiasis. Prior to admission, she experienced o ccasional urgency with urge incontinence, due primarily to her lack of mobility. She reports occasional nocturia and denies nocturnal enuresis. She reports occasional dysuria but denies hematuria. She experienced difficulty voiding while lying supine in her hospital bed, and therefore a Menjivar catheter was placed for retention. Review of Systems - Respiratory Reports dyspnea - Genitourinary Genitourinary: Reports as per HPI Past Medical History Past Medical History: Asthma, Coronary Artery Disease (CAD), Chest Pain / Angina, Heart Failure, Diabetes Mellitus, Eye Disorder, Fibromyalgia, GERD/Reflux, Hyperlipidemia, Hypertension, Myocardial Infarction (MS), O steoarthritis (OA), Pneumonia, Renal Disease, Syncope, Vascular Disorder Additional Past Medical History / Comment(s): IDDM type II with insulin pump, neuropathy bilateral feet/legs, bilateral eye macular degeneration/diabetic retinopathy, CKD stage III, UTIs with one recently tx with antibiotic, bronchitis, IBS, constipation with last BM 10/14/19, DJD, osteopenia, L hip fra cture with surgery, T12 compression fx with surgery, PAD with past bilateral foot wounds/currently has 2 small black spots on R great toe and L 2nd toe, vertigo, migraines, light headed with activity, bruises easily. Last Myocardial Infarction Date:: 02/12/2016 History of Any Multi-Drug Resistant Organisms: None Reported Past Surgical History: Adenoidectomy, AICD, Bariatric Surgery, Breast Surgery, Cholecystectomy, Heart Catheterization, Heart Catheterization With Stent, Hernia Repair, Joint Replacement, Orthopedic Surgery, Tonsillectomy Additional Past Surgical History / Comment(s): PCI/stent, AICD, lap band with removal/gastric sleeve, EGDs, colonoscopies, hiatal hernia surgery, multiple i ncisional hernia repairs/mesh, bilateral shoulder manipulation, total L hip arthroplasty, L little finger amputation, L elbow staph infection with surgery, T12 kyphoplasty/biopsy, R anterior PTBA with subsequent hematoma, L fempop arthrectomy/PTBA/stent, angiograms. bilateral breast benign biopsies, D&C. Past Anesthesia/Blood Transfusion Reactions: Postoperative Nausea & Vomiting (PONV) Additional Past Anesthesia/Blood Transfusion Reaction / Comm: Past blood transfusion 2015-no reaction. Date of Last Stent Placement:: 02/2016 Type of Cardiac Device: AICD Device Placement Date:: Past Psychological History: Anxiety, Depression Additional Psychological History / Comment(s): Pt resides with her spouse who assists in her care. She just initiated home care she believes with [facility]. She states she is mostly wheelchair bound. Until recently, she was able to transfer self to w/c. Her spouse drives. Spouse checks her feet and assists with managing her medications. She has an insulin pump/glucometer. Smoking Status: Former smoker Past Alcohol Use History: None Reported Additional Past Alcohol Use History / Comment(s): Pt started smoking at the age of 11 and quit smoking many yrs ago- in the late 1970s. Past Drug Use History: None Reported Additional Drug Use History / Comment(s): CBD gummies - Past Family History Father Family Medical History: Diabetes Mellitus Additional Family Medical History / Comment(s): Alcoholism. Mother Family Medical History: COPD, Diabetes Mellitus, Deep Vein Thrombosis (DVT) Additional Family Medical History / Comment(s): . Medications and Allergies Home Medications Medication Instructions Recorded Confirmed Type Omeprazole [PriLOSEC] 40 mg PO -BRKFST 08/06/14 03/28/22 History Rosuvastatin Calcium 40 mg PO DAILY 10/22/16 03/28/22 History Furosemide [Lasix] 40 mg PO DAILY 03/18/18 03/28/22 History Potassium Chloride ER [K-Dur 10] 10 meq PO DAILY 03/18/18 03/28/22 History Metoprolol Succinate (ER) [Toprol 50 mg PO DAILY 09/30/18 03/28/22 History XL] Furosemide [Lasix] 20 mg PO HS 01/15/19 03/28/22 History Ezetimibe [Zetia] 10 mg PO DAILY 06/15/19 03/28/22 History ALPRAZolam [Xanax] 0.25 mg PO HS 03/21/20 03/28/22 History Ferrous Sulfate [Feosol] 325 mg PO DAILY 03/21/20 03/28/22 History calcitrioL [Rocaltrol] 0.5 mcg PO DAILY 03/21/20 03/28/22 History Cyclobenzaprine [Flexeril] 10 mg PO HS 03/24/20 03/28/22 History Escitalopram [Lexapro] 20 mg PO DAILY 03/24/20 03/28/22 History ALPRAZolam [Xanax] 0.25 mg PO BID PRN 10/02/21 03/28/22 History Clopidogrel [Plavix] 75 mg PO DAILY 10/02/21 03/28/22 History Ergocalciferol [Vitamin D2 (1250 1,250 mcg PO Q28D 03/23/22 03/28/22 History Mcg = 23701 Iu)] INSULIN LISPRO (For Pump) [humaLOG 0.01 units SQ-PUMP CONTINUOUS 03/23/22 03/28/22 History (For Pump)] cilostazoL [Pletal] 50 mg PO BID 03/23/22 03/28/22 History Gabapentin 300 mg PO HS 03/28/22 03/28/22 History predniSONE 10 mg PO DAILY 03/28/22 03/28/22 History Allergies Allergy/AdvReac Type Severity Reaction Status Date / Time adhesive tape Allergy Rash/Hives Verified 03/28/22 13:16 Penicillins Allergy Rash/Hives Verified 03/28/22 13:16 atorvastatin AdvReac Myalgia Verified 03/28/22 13:16 meperidine HCl [From Demerol] AdvReac Hallucinati Verified 03/28/22 13:16 ons Surgical - Exam Vital Signs Temp Pulse Resp BP Pulse Ox 97.6 F 85 22 167/77 94 L 03/28/22 05:43 03/28/22 05:43 03/28/22 05:43 03/28/22 05:43 03/28/22 05:43 - General well developed, well nourished, no distress - Respiratory normal respiratory effort - Abdomen Abdomen: soft, non tender, no guarding, no rigid, no rebound - Psychiatric oriented to time, oriented to person, oriented to place, speech is normal, memory intact Results - Labs 04/04/22 08:12 04/04/22 08:12 Abnormal Lab Results - Last 24 Hours (Table) 04/02/22 04/02/22 04/02/22 Range/Units 07:05 08:27 08:27 RBC 3.12 L (3.80-5.40) m/uL Hgb 8.5 L (11.4-16.0) gm/dL Hct 27.1 L (34.0-46.0) % RDW 15.9 H (11.5-15.5) % Sodium 129 L (137-145) mmol/L Carbon Dioxide 19 L (22-30) mmol/L BUN 52 H (7-17) mg/dL Creatinine 1.94 H (0.52-1.04) mg/dL Glucose 403 H (74-99) mg/dL POC Glucose (mg/dL) (70-110) mg/dL Calcium 8.1 L (8.4-10.2) mg/dL Urine Appearance Turbid H (Clear) Urine Protein Trace H (Negative) Urine Blood Moderate H (Negative) Ur Leukocyte Esterase Large H (Negative) Urine RBC >182 H (0-5) /hpf Urine WBC >182 H (0-5) /hpf Urine Bacteria Many H (None) /hpf Urine Mucus Few H (None) /hpf Urine Yeast (Budding) Many H (None) /hpf 04/02/22 04/02/22 04/02/22 Range/Units 11:43 16:50 20:35 RBC (3.80-5.40) m/uL Hgb (11.4-16.0) gm/dL Hct (34.0-46.0) % RDW (11.5-15.5) % Sodium (137-145) mmol/L Carbon Dioxide (22-30) mmol/L BUN (7-17) mg/dL Creatinine (0.52-1.04) mg/dL Glucose (74-99) mg/dL POC Glucose (mg/dL) 462 H 379 H 318 H (70-110) mg/dL Calcium (8.4-10.2) mg/dL Urine Appearance (Clear) Urine Protein (Negative) Urine Blood (Negative) Ur Leukocyte Esterase (Negative) Urine RBC (0-5) /hpf Urine WBC (0-5) /hpf Urine Bacteria (None) /hpf Urine Mucus (None) /hpf Urine Yeast (Budding) (None) /hpf 04/03/22 Range/Units 06:24 RBC (3.80-5.40) m/uL Hgb (11.4-16.0) gm/dL Hct (34.0-46.0) % RDW (11.5-15.5) % Sodium (137-145) mmol/L Carbon Dioxide (22-30) mmol/L BUN (7-17) mg/dL Creatinine (0.52-1.04) mg/dL Glucose (74-99) mg/dL POC Glucose (mg/dL) 336 H (70-110) mg/dL Calcium (8.4-10.2) mg/dL Urine Appearance (Clear) Urine Protein (Negative) Urine Blood (Negative) Ur Leukocyte Esterase (Negative) Urine RBC (0-5) /hpf Urine WBC (0-5) /hpf Urine Bacteria (None) /hpf Urine Mucus (None) /hpf Urine Yeast (Budding) (None) /hpf Microbiology - Last 24 Hours (Table) 04/02/22 07:05 Urine Culture - Preliminary Urine,Voided Diabetes panel 04/02/22 Range/Units 08:27 Sodium 129 L (137-145) mmol/L Potassium 4.6 (3.5-5.1) mmol/L Chloride 101 (98-107) mmol/L Carbon Dioxide 19 L (22-30) mmol/L BUN 52 H (7-17) mg/dL Creatinine 1.94 H (0.52-1.04) mg/dL Glucose 403 H (74-99) mg/dL Calcium 8.1 L (8.4-10.2) mg/dL Calcium panel 04/02/22 Range/Units 08:27 Calcium 8.1 L (8.4-10.2) mg/dL Pituitary panel 04/02/22 Range/Units 08:27 Sodium 129 L (137-145) mmol/L Potassium 4.6 (3.5-5.1) mmol/L Chloride 101 (98-107) mmol/L Carbon Dioxide 19 L (22-30) mmol/L BUN 52 H (7-17) mg/dL Creatinine 1.94 H (0.52-1.04) mg/dL Glucose 403 H (74-99) mg/dL Calcium 8.1 L (8.4-10.2) mg/dL Adrenal panel 04/02/22 Range/Units 08:27 Sodium 129 L (137-145) mmol/L Potassium 4.6 (3.5-5.1) mmol/L Chloride 101 (98-107) mmol/L Carbon Dioxide 19 L (22-30) mmol/L BUN 52 H (7-17) mg/dL Creatinine 1.94 H (0.52-1.04) mg/dL Glucose 403 H (74-99) mg/dL Calcium 8.1 L (8.4-10.2) mg/dL Assessment and Plan (1) Retention of urine, unspecified Current Visit: Yes Status: Acute Code(s): R33.9 - RETENTION OF URINE, UNSPECIFIED SNOMED Code(s): 832831339 Plan: The patient currently has an indwelling Menjivar catheter, draining clear yellow urine. Retention appears to be at least in part functional. The catheter may be removed for a voiding trial. Bladder scan should be used to measure postvoid residuals. If the patient is unable to void, or empties her bladder incompletely, replacement of the catheter may be required. Unfortunately, she would be unable to perform intermittent self-catheterization, and if her retention persists she may require a chronic indwelling catheter. Time with Patient: Greater than 30
--- NOTE | 2022-04-04 12:48 | P.PN ---
Subjective Progress Note Date: 04/04/22 Patient is a pleasant 67-year-old female patient with past medical history significant for coronary artery disease s/p PCI mid RCA 02/2016, history of nonischemic cardiomyopathy and status post AICD, peripheral artery disease s/p stenting of proximal right anterior tibial artery, hypertension,type 2 diabetes, and dyslipidemia. She follows in the office with Dr. Nagel. She presented to the emergency room complaining of shortness of breath and generalized fatigue. She was found to have an NSTEMI and cardiomyopathy, echocardiogram revealed an EF of 2025 % mild mitral regurgitation, RVSP of 36 mmHg. 03/30- Patient underwent cardiac catheterization with Dr. Steen that revealed Critical disease involving the proximal and mid and distal RCA with thrombotic lesion and calcified vessel, Chronic total occlusion of the LAD which is a known finding from before, Chronic total occlusion of the LCx which is also a known finding from before, Severely elevated left-sided filling pressure with LVEDP of 30 mmHg. She underwent PCI to distal RCA, mid RCA and proximal RCA. 04/01. Patient seen and examined. Complaining of right shoulder pain as well as some chest discomfort that started after breakfast this morning. EKG shows atrial flutter. Cardiology evaluated the patient, planning to take the patient for cardiac cath 04/02. Patient seen and examined. Chest pain has resolved. Complaining of urinary retention. Complaining of dysuria as well. Denies any lightheadedness or dizziness. Vital signs stable 04/03. Patient seen and examined. States she feels better than yesterday, shortness of breath is improving. No chest pain. Vital signs stable 04/04. Patient seen and examined. Complaining of nausea and vomiting this morning. Denies any shortness of breath, not requiring any oxygen. REVIEW OF SYSTEMS: CONSTITUTIONAL: No fever, no malaise,. CARDIOVASCULAR: As mentioned in HPI PULMONARY: No shortness of breath, no cough, NEUROLOGICAL: No headaches, no weakness, PHYSICAL EXAMINATION: GENERAL: The patient is alert and oriented x3, not in any acute distress. Well developed, well nourished. HEENT: Pupils are round and equally reacting to light. EOMI. No scleral icterus. No conjunctival pallor. Normocephalic, atraumatic. No pharyngeal erythema. No thyromegaly. CARDIOVASCULAR: S1 and S2 present. No murmurs, rubs, or gallops. PULMONARY: Chest is clear to auscultation, no wheezing or crackles. ABDOMEN: Soft, nontender, nondistended, normoactive bowel sounds. No palpable organomegaly. MUSCULOSKELETAL: No joint swelling or deformity. EXTREMITIES: No cyanosis, clubbing, or pedal edema. NEUROLOGICAL: Gross neurological examination did not reveal any focal deficits. SKIN: No rashes. Assessment and plan NSTEMI Status post PCI distal RCA, mid RCA and proximal RCA on 03/30 Coronary artery disease with Chronic total occlusion of the LAD which is a known finding from before, Chronic total occlusion of the LCx which is also a known finding from before Acute on chronic heart failure with reduced ejection fraction Ischemic cardiomyopathy EF 20-25% History of AICD placement Peripheral artery disease s/p stenting of proximal right anterior tibial artery Hypertension Type 2 diabetes Dyslipidemia Recurrent chest pain, shoulder pain 04/01 concerning for angina UTI PLAN Monitor vital signs Monitor CBC Continue telemetry monitoring Reason functions are worsening, avoid nephrotoxic agents, consult nephrology Continue dual antiplatelet therapy with aspirin and Brilinta Continue statin, Zetia, metoprolol succinate Patient had repeat cardiac cath done on 04/01, showed stable coronary disease including 50% LAD, 100% proximal circumflex, mild luminal irregularities of the RCA Patent RCA stents, cardiology recommended continuing current medical therapy Continue IV Rocephin Continue current insulin regimen Follow-up on pulmonary recommendations Objective - Vital Signs Vital signs: Vital Signs Temp 98.1 F 04/04/22 12:00 Pulse 95 04/04/22 12:00 Resp 16 04/04/22 12:00 BP 118/58 04/04/22 12:00 Pulse Ox 95 04/04/22 12:00 FiO2 21 03/29/22 21:37 Intake & Output 04/03/22 04/04/22 04/04/22 18:59 06:59 18:59 Intake Total 236 0 Output Total 400 Balance 236 -400 0 Intake: Oral 236 0 Output: Urine 400 Straight 400 Other: Voiding Method Indwelling Catheter Indwelling Catheter Indwelling Catheter # Bowel Movements 1 - Labs CBC & Chem 7: 04/04/22 08:12 04/04/22 08:12 Labs: Abnormal Lab Results - Last 24 Hours (Table) 04/03/22 04/03/22 04/04/22 Range/Units 16:48 20:11 06:21 WBC (3.8-10.6) k/uL RBC (3.80-5.40) m/uL Hgb (11.4-16.0) gm/dL Hct (34.0-46.0) % RDW (11.5-15.5) % Neutrophils # (1.3-7.7) k/uL Lymphocytes # (1.0-4.8) k/uL Sodium (137-145) mmol/L BUN (7-17) mg/dL Creatinine (0.52-1.04) mg/dL Glucose (74-99) mg/dL POC Glucose (mg/dL) 320 H 264 H 238 H (70-110) mg/dL AST (14-36) U/L Total Protein (6.3-8.2) g/dL 04/04/22 04/04/22 04/04/22 Range/Units 08:12 08:12 11:47 WBC 11.7 H (3.8-10.6) k/uL RBC 3.50 L (3.80-5.40) m/uL Hgb 9.7 L (11.4-16.0) gm/dL Hct 30.3 L (34.0-46.0) % RDW 15.9 H (11.5-15.5) % Neutrophils # 10.1 H (1.3-7.7) k/uL Lymphocytes # 0.9 L (1.0-4.8) k/uL Sodium 135 L (137-145) mmol/L BUN 63 H (7-17) mg/dL Creatinine 2.38 H (0.52-1.04) mg/dL Glucose 171 H (74-99) mg/dL POC Glucose (mg/dL) 170 H (70-110) mg/dL AST 40 H (14-36) U/L Total Protein 6.2 L (6.3-8.2) g/dL Microbiology - Last 24 Hours (Table) 04/02/22 07:05 Urine Culture - Final Urine,Voided
--- NOTE | 2022-04-04 12:58 | P.PN ---
Subjective HISTORY OF PRESENTING ILLNESS This is a pleasant 67-year-old female patient with past medical history significant for coronary artery disease s/p PCI mid RCA 02/2016, history of nonischemic cardiomyopathy and status post AICD, peripheral artery disease s/p stenting of proximal right anterior tibial artery, hypertension,type 2 diabetes, and dyslipidemia. She follows in the office with Dr. Nagel. We are asked to see in consultation for CHF and elevated troponin. She presented to the emergency room complaining of shortness of breath and generalized fatigue. She was found to have an NSTEMI and cardiomyopathy, echocardiogram revealed an EF of 2025 % mild mitral regurgitation, RVSP of 36 mmHg. 03/30- Patient underwent cardiac catheterization with Dr. Steen that revealed Critical disease involving the proximal and mid and distal RCA with thrombotic lesion and calcified vessel, Chronic total occlusion of the LAD which is a known finding from before, Chronic total occlusion of the LCx which is also a known finding from before, Severely elevated left-sided filling pressure with LVEDP of 30 mmHg. She underwent PCI to distal RCA, mid RCA and proximal RCA. 03/31/2022 Patient seen and examined at bedside, no acute events overnight. Denies any chest pain. Breathing has improved. She endorses tiredness and fatigue. BP 116/72 HR 82. She continues to be on IV Lasix. -1.2L fluid balance. BUN 46, sCr 1.81 04/01 Patient seen and examined. Patient states she had been feeling fine however after breakfast this morning started having right shoulder pain, feeling somewhat nauseous, getting a headache and having some chest discomfort. She states his feels similar to her prior angina with the heart catheterization as well as with her prior stents in the past. EKG performed which shows reading of atrial flutter/tachycardia however appears to be sinus rhythm and on telemetry clear gradual rise in heart rate. Patient was given nitro with no improvement. 04/02 Patient seen and examined. Patient had recurrence of chest pain yesterday which felt similar to her prior angina and therefore repeat heart catheterization was performed with minimal amount of contrast. Catheterization showed patent stents with no significant change of 50% LAD lesion. She has been having some urinary retention and therefore Menjivar catheter was placed and appears to have a urinary tract infection. Denies any further chest pain. 04/03 Patient seen and examined. Patient states she feels well without any further chest pain however does still have some mild dyspnea. She has remained mildly tachycardic with heart rates 100-110 and still in atrial flutter with 2-1 conduction on monitor. Remains on the metoprolol 50 mg. Borderline blood pressures in the 120s to 130s systolic. 04/04 Patient seen and examined. White blood cell count 11.7, hemoglobin 9.7, BUN 63, creatinine 2.3. HR's in the 90-100's. PHYSICAL EXAMINATION Vitals reviewed CONSTITUTIONAL: No apparent distress. HEENT: Head is normocephalic. No JVD. CHEST EXAMINATION: Lungs are mild crackles in the bases bilaterally to auscultation. No chest wall tenderness is noted on palpation or with deep breathing. HEART EXAMINATION: Regular rate and rhythm. S1, S2 heard. No murmurs, gallops or rub. ABDOMEN: Soft, nontender. Positive bowel sounds. EXTREMITIES: 2+ peripheral pulses, no lower extremity edema and no calf tenderness. NEUROLOGIC EXAMINATION: Patient is awake, alert and oriented x3. ASSESSMENT NSTEMI Status post PCI distal RCA, mid RCA and proximal RCA on 03/30 Coronary artery disease with Chronic total occlusion of the LAD which is a known finding from before, Chronic total occlusion of the LCx which is also a known finding from before Acute on chronic heart failure with reduced ejection fraction Ischemic cardiomyopathy EF 20-25% History of AICD placement Peripheral artery disease s/p stenting of proximal right anterior tibial artery Hypertension Type 2 diabetes Dyslipidemia Recurrent chest pain, shoulder pain 04/01 concerning for angina. Cath no change PLAN Continue dual antiplatelet therapy with aspirin and Brilinta Continue statin, Zetia Continue metoprolol succinate 75mg daily Patient with episode of chest pain 04/01 which appeared similar to her prior angina and therefore catheterization was performed 04/01 with stable stents and no change. No further chest pain and chest pain may been related to anxiety Increasing creatinine previously felt somewhat related to urinary retention. Cr going up however and we will give gentle IVF. Continue with current supportive care. Objective - Vital Signs Vital signs: Vital Signs Temp 98.1 F 04/04/22 12:00 Pulse 95 04/04/22 12:00 Resp 16 04/04/22 12:00 BP 118/58 04/04/22 12:00 Pulse Ox 95 04/04/22 12:00 FiO2 21 03/29/22 21:37 Intake & Output 04/03/22 04/04/22 04/04/22 18:59 06:59 18:59 Intake Total 236 0 Output Total 400 Balance 236 -400 0 Intake: Oral 236 0 Output: Urine 400 Straight 400 Other: Voiding Method Indwelling Catheter Indwelling Catheter Indwelling Catheter # Bowel Movements 1 - Labs CBC & Chem 7: 04/04/22 08:12 04/04/22 08:12 Labs: Abnormal Lab Results - Last 24 Hours (Table) 04/03/22 04/03/22 04/04/22 Range/Units 16:48 20:11 06:21 WBC (3.8-10.6) k/uL RBC (3.80-5.40) m/uL Hgb (11.4-16.0) gm/dL Hct (34.0-46.0) % RDW (11.5-15.5) % Neutrophils # (1.3-7.7) k/uL Lymphocytes # (1.0-4.8) k/uL Sodium (137-145) mmol/L BUN (7-17) mg/dL Creatinine (0.52-1.04) mg/dL Glucose (74-99) mg/dL POC Glucose (mg/dL) 320 H 264 H 238 H (70-110) mg/dL AST (14-36) U/L Total Protein (6.3-8.2) g/dL 04/04/22 04/04/22 04/04/22 Range/Units 08:12 08:12 11:47 WBC 11.7 H (3.8-10.6) k/uL RBC 3.50 L (3.80-5.40) m/uL Hgb 9.7 L (11.4-16.0) gm/dL Hct 30.3 L (34.0-46.0) % RDW 15.9 H (11.5-15.5) % Neutrophils # 10.1 H (1.3-7.7) k/uL Lymphocytes # 0.9 L (1.0-4.8) k/uL Sodium 135 L (137-145) mmol/L BUN 63 H (7-17) mg/dL Creatinine 2.38 H (0.52-1.04) mg/dL Glucose 171 H (74-99) mg/dL POC Glucose (mg/dL) 170 H (70-110) mg/dL AST 40 H (14-36) U/L Total Protein 6.2 L (6.3-8.2) g/dL Microbiology - Last 24 Hours (Table) 04/02/22 07:05 Urine Culture - Final Urine,Voided
--- NOTE | 2022-04-04 13:06 | P.PN ---
Subjective Progress Note Date: 04/04/22 This is a 67-year-old male patient was being seen for a follow-up. We saw this patient in consultation for shortness of breath. The patient is known to have CAD and the patient has undergone previous coronary intervention and stenting. He is also known to have congestion heart failure. He has an AICD in place. His other comorbid conditions include bronchial asthma, chronic stage III kidney disease her creatinine is at 1.7. The patient also has history of fibromyalgia, diabetes mellitus, acid reflux, hyperlipidemia as comorbid conditions. The patient is known to have CAD. In this current admission, the troponin peaked at 3.44. The chest x-ray was consistent with CHF. The patient is currently on IV heparin. PTT is therapeutic for now. The patient is also on Lasix 40 mg IV every 24 hours for diuresis. The patient is on aspirin and Plavix. The patient is on metoprolol 50 mg by mouth daily. Echocardiogram is still pending for now patient is resting comfortably in bed at 2 L/m nasal cannula. The patient is awaiting a cardiology evaluation. EKG showed normal evidence of any ST segment elevation. ProBNP level was elevated at 3450. The patient is seen today 03/30/2022 in follow-up on the elective care unit. She is currently resting comfortably in bed. Awake and alert in no acute distress. White count 9.3. Hemoglobin 9.3. Sodium 131. Potassium 5.0. BUN 43. Creatinine 1.89. Glucose 217. Troponins 26.5, 21.5. She did undergo cardiac catheterization and subsequent stenting of the distal right coronary artery, mid right coronary artery and proximal right coronary artery. She is resting flat in bed. Denies any chest pain. No palpitations. No worsening shortness of breath. She is maintaining good O2 saturations up to 100% on 2 L/m per nasal cannula. Afebrile. Hemodynamically stable. The patient is seen today 03/31/2000 and follow-up on the selective care unit. She is currently sitting up in bed. Awake and alert in no acute distress. She denies any worsening shortness of breath, cough or congestion. No chest pain. She mainly complains of fatigue. She is somewhat dyspneic on minimal exertion. The patient is maintaining O2 saturations in the 90s on 2 L/m per nasal cannula. White count 8.2. Hemoglobin 9.3. Platelets 191. Sodium 133. Potassium 4.4. Bicarb 21. BUN 46. Creatinine 1.82. Glucose 180. She remains on DuoNeb inhalations. 04/01/2022, clinically improved and the patient is feeling less short of breath compared to yesterday. However, the patient was having some chest pain and there was a concern forangina or palpitations related to stenting. The patient underwent another cardiac catheterization and the patient was found to have stable coronary artery disease with 50% LAD lesion, 100% proximal circumflex lesion and minimal luminal irregularities of the RCA. There is stents were essentially patent. As far as such aggressive risk factor modification was recommended. Patient will be kept on bronchodilators and steroids. The steroids optimize her COPD over the past 24 hours. BUN is 45 with a creatinine 1.6 and a sodium level is at 132. We'll watch for any contrast nephropathy. On 04/02/2022, the patient is resting comfortably in bed. Her condition is stable. Her COPD was being treated with accommodation of bronchodilators and the patient was also on IV Solu-Medrol which will be tapered off today. The patient was receiving 60 mg of IV Solu-Medrol every 6 hours. No chest pain. Less short of breath. She is feeling weak and tired. Her legs are quite weak and the patient was given by the boots to prevent heel ulceration. The white cell cause of 10.5 with a hemoglobin of 8.5. The patient's sodium level is at 129 and the patient is also developed an acute elevation of the creatinine which is up to 1.94 and the BUN is currently at 52. She is post cardiac catheterization that showed no evidence of any stent occlusion. UA is abnormal. Urine culture is pending. The patient remains on IV Rocephin. 04/03/2022, the patient is resting comfortably in bed. No significant complaints. No chest pain. Remains on DuoNeb about treatments [id number] and IV Solu-Medrol regarding his COPD exacerbation. She has no angina. She has undergone stenting to the RCA and repeat cardiac catheterization was done that showed patent stents. She is on 2 L of O2 nasal cannula. She is profoundly weak and even at baseline and the patient has been moving around with the help of wheelchairs. She wants ultimately go home. She is not interested in ECF. The patient's white cell count today's of 13.4 with a hemoglobin of 9.1. The sugars are elevated because of systemic steroids. Urinalysis was also abnormal and the patient is currently on IV Rocephin. In terms of blood sugar control, the patient is on Levemir insulin 30 units in the patient is also on NovoLog 8 units with meals and a sliding scale coverage. 04/04/2022, the patient is stable. No significant shortness of breath or chest pain. She has some limited nausea. No fever. No chills. The WBC count is 11.7 with a hemoglobin of 0.7 and a platelet count is also stable. Hemoglobin is at 9.7. BUN is at 63 with a creatinine of 2.3. The patient continues to be on bronchodilators with DuoNeb about treatments [id number]. She is on prednisone burst taper that was started yesterday. She is also receiving blood sugar management and she is on Levemir insulin 30 units in NovoLog 8 units with meals. She is also on a sliding scale coverage. Cardiology is on the case post cardiac catheterization and stenting of the RCA. She is on oxygen at room air. Of concern however is having ongoing rise in the creatinine which is up to 2.3. I discontinued her diuretics earlier. Objective - Vital Signs Vital signs: Vital Signs Temp 98.1 F 04/04/22 12:00 Pulse 95 04/04/22 12:00 Resp 16 04/04/22 12:00 BP 118/58 04/04/22 12:00 Pulse Ox 95 04/04/22 12:00 FiO2 21 03/29/22 21:37 Intake & Output 04/03/22 04/04/22 04/04/22 18:59 06:59 18:59 Intake Total 236 0 Output Total 400 Balance 236 -400 0 Intake: Oral 236 0 Output: Urine 400 Straight 400 Other: Voiding Method Indwelling Catheter Indwelling Catheter Indwelling Catheter # Bowel Movements 1 - Exam GENERAL EXAM: Alert, pleasant 67-year-old female, sitting up in bed, on 2 L maribell al cannula, comfortable in no apparent distress. HEAD: Normocephalic. EYES: Normal reaction of pupils, equal size. NOSE: Clear with pink turbinates. THROAT: No erythema or exudates. NECK: No masses, no JVD. CHEST: No chest wall deformity. LUNGS: Equal air entry with faint end expiratory wheeze bilaterally, diminished. CVS: S1 and S2 normal with no audible murmur, regular rhythm. ABDOMEN: No hepatosplenomegaly, normal bowel sounds, no guarding or rigidity. SPINE: No scoliosis or deformity SKIN: No rashes CENTRAL NERVOUS SYSTEM: No focal deficits, tone is normal in all 4 extremities. EXTREMITIES: There is no peripheral edema. No clubbing, no cyanosis. Peripheral pulses are intact. - Labs CBC & Chem 7: 04/04/22 08:12 04/04/22 08:12 Labs: Abnormal Lab Results - Last 24 Hours (Table) 04/03/22 04/03/22 04/04/22 Range/Units 16:48 20:11 06:21 WBC (3.8-10.6) k/uL RBC (3.80-5.40) m/uL Hgb (11.4-16.0) gm/dL Hct (34.0-46.0) % RDW (11.5-15.5) % Neutrophils # (1.3-7.7) k/uL Lymphocytes # (1.0-4.8) k/uL Sodium (137-145) mmol/L BUN (7-17) mg/dL Creatinine (0.52-1.04) mg/dL Glucose (74-99) mg/dL POC Glucose (mg/dL) 320 H 264 H 238 H (70-110) mg/dL AST (14-36) U/L Total Protein (6.3-8.2) g/dL 04/04/22 04/04/22 04/04/22 Range/Units 08:12 08:12 11:47 WBC 11.7 H (3.8-10.6) k/uL RBC 3.50 L (3.80-5.40) m/uL Hgb 9.7 L (11.4-16.0) gm/dL Hct 30.3 L (34.0-46.0) % RDW 15.9 H (11.5-15.5) % Neutrophils # 10.1 H (1.3-7.7) k/uL Lymphocytes # 0.9 L (1.0-4.8) k/uL Sodium 135 L (137-145) mmol/L BUN 63 H (7-17) mg/dL Creatinine 2.38 H (0.52-1.04) mg/dL Glucose 171 H (74-99) mg/dL POC Glucose (mg/dL) 170 H (70-110) mg/dL AST 40 H (14-36) U/L Total Protein 6.2 L (6.3-8.2) g/dL Microbiology - Last 24 Hours (Table) 04/02/22 07:05 Urine Culture - Final Urine,Voided Assessment and Plan Assessment: Acute shortness of breath, most likely related to non-ST segment elevation myocardial infarction. Status post stenting 3 to the RCA in 03/30/2022, repeat cardiac catheterization from today showed patent coronary stent involving the RCA. The patient remains free of any chest pain Acute hypoxic respiratory failure secondary to acute systolic congestive heart failure with an ejection fraction of 20-25%. Patient is improved and the patient is currently on room air oxygen. COPD exacerbation currently on bronchodilators and steroids, improving, currently on a prednisone burst taper Previous history of PCI with stent placement. Acute kidney injury, due to a combination of contrast and diuretics History of CHF. History of diabetes mellitus. History of hypertension. History of hyperlipidemia. Prior history of myocardial infarction. Stage III chronic kidney disease with a component of an acute kidney injury and acute hyponatremia AICD placement. Suspect UTI Multiple other medical problems and comorbidities. Plan: Complete the prednisone burst taper currently on 30 mg Continue bronchodilators Stop the Lasix, awaiting renal function from today Monitor renal function and electrolytes Suspect UTI and the patient is currently on IV Rocephin for suspected UTI Increase her activity as tolerated Monitor renal function She may have a component of contrast nephropathy No need for diuretics We'll continue to follow
[2022-04-04 16:29] LABS: Glucose,Whole Blood 172 mg/dL (70-110)
[2022-04-04 19:59] LABS: Glucose,Whole Blood 237 mg/dL (70-110)
[2022-04-04] MEDS: ALPRAZolam 0.25 MG TAB PO SCH (20:40)
[2022-04-04] MEDS: GABAPENTIN 300 MG CAP PO SCH (20:40)
[2022-04-04] MEDS: CYCLOBENZAPRINE 10 MG TAB PO SCH (20:40)
[2022-04-04] MEDS: SODIUM CHLORIDE 0.9% 1,000 ML IV SCH (20:41)
[2022-04-04] MEDS: MAG HYDROX/AL HYDROX/SIMETH 30 ML CUP PO PRN (20:48)
[2022-04-05] MEDS: SODIUM CHLORIDE 0.9% 1,000 ML in EMPTY BAG 1 BAG IV SCH ×2 (01:55→12:16)
[2022-04-05 05:57] LABS: Glucose,Whole Blood 201 mg/dL (70-110)
[2022-04-05] MEDS: PANTOPRAZOLE 40 MG TABLET PO SCH (06:41)
[2022-04-05] MEDS: INSULIN DETEMIR (LEVEMIR) 100 UNIT/ML SYR SQ SCH (06:41)
[2022-04-05] MEDS: INSULIN ASPART (NovoLOG) 100 UNIT/ML VIAL SQ SCH ×4 (06:41→12:17)
[2022-04-05] MEDS: IPRATROPIUM-ALBUTEROL 3 ML NEB INHALATION SCH ×2 (07:17→11:13)
[2022-04-05] MEDS: MAG HYDROX/AL HYDROX/SIMETH 30 ML CUP PO PRN (08:34)
[2022-04-05 09:31] LABS: Anisocytosis Slight; HCT 30.3 % (34.0-46.0); HGB 9.4 gm/dL (11.4-16.0); Hypochromasia Marked; MCH 27.6 pg (25.0-35.0); MCHC 30.9 g/dL (31.0-37.0); MCV 89.2 fL (80.0-100.0); Mean Platelet Volume 7.9; Platelet Count 238 k/uL (150-450); RBC 3.39 m/uL (3.80-5.40); RDW 16.1 % (11.5-15.5); WBC 8.5 k/uL (3.8-10.6)
[2022-04-05 09:39] LABS: Albumin 3.2 g/dL (3.5-5.0); Calcium 8.3 mg/dL (8.4-10.2); Potassium 4.4 mmol/L (3.5-5.1); Total Bilirubin 0.7 mg/dL (0.2-1.3); Total Protein 5.8 g/dL (6.3-8.2)
[2022-04-05 09:58] VITALS: RESP 20
--- NOTE | 2022-04-05 11:24 | P.PN ---
Subjective Progress Note Date: 04/05/22 HISTORY OF PRESENTING ILLNESS This is a pleasant 67-year-old female patient with past medical history sign ificant for coronary artery disease s/p PCI mid RCA 02/2016, history of nonischemic cardiomyopathy and status post AICD, peripheral artery disease s/p stenting of proximal right anterior tibial artery, hypertension,type 2 diabetes, and dyslipidemia. She follows in the office with Dr. Nagel. We are asked to see in consultation for CHF and elevated troponin. She presented to the emergency room complaining of shortness of breath and generalized fatigue. She was found to have an NSTEMI and cardiomyopathy, echocardiogram revealed an EF of 2024 % mild mitral regurgitation, RVSP of 36 mmHg. 03/30- Patient underwent cardiac catheterization with Dr. Steen that revealed Critical disease involving the proximal and mid and distal RCA with thrombotic lesion and calcified vessel, Chronic total occlusion of the LAD which is a known finding from before, Chronic total occlusion of the LCx which is also a known finding from before, Severely elevated left-sided filling pressure with LVEDP of 30 mmHg. She underwent PCI to distal RCA, mid RCA and proximal RCA. 03/31/2022 Patient seen and examined at bedside, no acute events overnight. Denies any chest pain. Breathing has improved. She endorses tiredness and fatigue. BP 116/72 HR 82. She continues to be on IV Lasix. -1.2L fluid balance. BUN 46, sCr 1.81 04/01 Patient seen and examined. Patient states she had been feeling fine however after breakfast this morning started having right shoulder pain, feeling somewhat nauseous, getting a headache and having some chest discomfort. She states his feels similar to her prior angina with the heart catheterization as well as with her prior stents in the past. EKG performed which shows reading of atrial flutter/tachycardia however appears to be sinus rhythm and on telemetry clear gradual rise in heart rate. Patient was given nitro with no improvement. 04/02 Patient seen and examined. Patient had recurrence of chest pain yesterday which felt similar to her prior angina and therefore repeat heart catheterization was performed with minimal amount of contrast. Catheterization showed patent stents with no significant change of 50% LAD lesion. She has been having some urinary retention and therefore Menjivar catheter was placed and appears to have a urinary tract infection. Denies any further chest pain. 04/03 Patient seen and examined. Patient states she feels well without any further chest pain however does still have some mild dyspnea. She has remained mildly tachycardic with heart rates 100-110 and still in atrial flutter with 2-1 conduction on monitor. Remains on the metoprolol 50 mg. Borderline blood pressures in the 120s to 130s systolic. 04/04 Patient seen and examined. White blood cell count 11.7, hemoglobin 9.7, BUN 63, creatinine 2.3. HR's in the 90-100's. 04/05 The patient has been seen and examined. She denies having any chest pain or shortness of breath. No palpitations. Hemoglobin 9.4. BUN 16 creatinine 2.14. Heart rate is in the 90s, communication technician sinus rhythm. PHYSICAL EXAMINATION Vitals reviewed CONSTITUTIONAL: No apparent distress. HEENT: Head is normocephalic. No JVD. CHEST EXAMINATION: Lungs are essentially clear bilaterally to auscultation. No chest wall tenderness is noted on palpation or with deep breathing. HEART EXAMINATION: Regular rate and rhythm. S1, S2 heard. No murmurs, gallops or rub. ABDOMEN: Soft, nontender. Positive bowel sounds. EXTREMITIES: 2+ peripheral pulses, no lower extremity edema and no calf ten derness. NEUROLOGIC EXAMINATION: Patient is awake, alert and oriented x3. ASSESSMENT NSTEMI Status post PCI distal RCA, mid RCA and proximal RCA on 03/30 Coronary artery disease with Chronic total occlusion of the LAD which is a known finding from before, Chronic total occlusion of the LCx which is also a known finding from before Acute on chronic heart failure with reduced ejection fraction Ischemic cardiomyopathy EF 20-25% History of AICD placement Peripheral artery disease s/p stenting of proximal right anterior tibial artery Hypertension Type 2 diabetes Dyslipidemia Recurrent chest pain, shoulder pain 04/01 concerning for angina. Cath no change PLAN Continue dual antiplatelet therapy with aspirin and Brilinta Continue statin, Zetia Continue metoprolol succinate 75mg daily Patient with episode of chest pain 04/01 which appeared similar to her prior angina and therefore catheterization was performed 04/01 with stable stents and no change. No further chest pain and chest pain may been related to anxiety Creatinine has been improved with gentle IVF. Patient is cleared from cardiology for discharge home with planned follow-up with Dr. Alvarado in the next 1 week. Nurse practitioner note has been reviewed, I agree with documented findings and plan of care. Patient was seen and examined. Objective - Vital Signs Vital signs: Vital Signs Temp 98.2 F 04/05/22 08:00 Pulse 99 04/05/22 08:00 Resp 20 04/05/22 08:00 BP 122/72 04/05/22 08:00 Pulse Ox 98 04/05/22 08:00 FiO2 21 04/04/22 20:31 Intake & Output 04/04/22 04/05/22 04/05/22 18:59 06:59 18:59 Intake Total 118 118 Output Total 425 Balance 118 -425 118 Intake: Oral 118 118 Output: Urine 425 Straight 425 Other: Voiding Method Indwelling Catheter Indwelling Catheter - Labs CBC & Chem 7: 04/05/22 09:11 04/05/22 09:11 Labs: Abnormal Lab Results - Last 24 Hours (Table) 04/04/22 04/04/22 04/04/22 Range/Units 11:47 16:27 19:57 RBC (3.80-5.40) m/uL Hgb (11.4-16.0) gm/dL Hct (34.0-46.0) % MCHC (31.0-37.0) g/dL RDW (11.5-15.5) % Sodium (137-145) mmol/L BUN (7-17) mg/dL Creatinine (0.52-1.04) mg/dL Glucose (74-99) mg/dL POC Glucose (mg/dL) 170 H 172 H 237 H (70-110) mg/dL Calcium (8.4-10.2) mg/dL AST (14-36) U/L ALT (4-34) U/L Total Protein (6.3-8.2) g/dL Albumin (3.5-5.0) g/dL 04/05/22 04/05/22 04/05/22 Range/Units 05:55 09:11 09:11 RBC 3.39 L (3.80-5.40) m/uL Hgb 9.4 L (11.4-16.0) gm/dL Hct 30.3 L (34.0-46.0) % MCHC 30.9 L (31.0-37.0) g/dL RDW 16.1 H (11.5-15.5) % Sodium 135 L (137-145) mmol/L BUN 60 H (7-17) mg/dL Creatinine 2.14 H (0.52-1.04) mg/dL Glucose 148 H (74-99) mg/dL POC Glucose (mg/dL) 201 H (70-110) mg/dL Calcium 8.3 L (8.4-10.2) mg/dL AST 47 H (14-36) U/L ALT 41 H (4-34) U/L Total Protein 5.8 L (6.3-8.2) g/dL Albumin 3.2 L (3.5-5.0) g/dL
[2022-04-05] MEDS: ASPIRIN 81 MG PO SCH (11:43)
[2022-04-05] MEDS: METOPROLOL SUCCINATE (ER) 25 MG TAB.ER.24H PO SCH (11:43)
[2022-04-05] MEDS: EZETIMIBE 10 MG TAB PO SCH (11:43)
[2022-04-05] MEDS: SENNOSIDES 8.6 MG TAB PO SCH (11:44)
[2022-04-05] MEDS: POTASSIUM CHLORIDE ER 10 MEQ TAB.ER.PRT PO SCH (11:44)
[2022-04-05] MEDS: ESCITALOPRAM 20 MG TAB PO SCH (11:44)
[2022-04-05] MEDS: predniSONE 10 MG TAB PO SCH (11:44)
[2022-04-05] MEDS: TICAGRELOR 90 MG TAB PO SCH (11:44)
[2022-04-05] MEDS: FERROUS SULFATE 325 MG TAB PO SCH (11:44)
[2022-04-05] MEDS: cilostazoL 100 MG TAB PO SCH (11:45)
[2022-04-05 11:59] LABS: Glucose,Whole Blood 147 mg/dL (70-110)
--- NOTE | 2022-04-05 12:06 | P.NPCON ---
History of Present Illness - Reason for Consult acute renal failure - History of Present Illness Patient is a 67-year-old female with history of type 2 diabetes, dyslipidemia and CHF. Patient was admitted to the hospital with complaints of shortness of breath Patient ruled in for acute non-ST elevation NE. Ejection fraction on echocardiogram was 20-25%. Status post cardiac catheterization twice this ad mission. Initial heart cath was performed on 03/30/2022 with stenting of RCA. Repeat cardiac catheterization on on 04/01/2022 which showed stable disease with no new intervention needed. Serum creatinine was 1.45 on initial admission and increased to 2.38 yesterday and to date is at 2.1. Previous creatinine noted at 1.5 on 05/14/2021. Blood pressure had been low with systolic in the 90s on 04/01/2022, however, subsequently staying at about 111-1 19 mmHg Currently maintained on saline at 50 mL an hour. Patient reports good urine output. He has an indwelling Menjivar catheter Review of Systems As per HPI. Other systems negative Past Medical History Past Medical History: Asthma, Coronary Artery Disease (CAD), Chest Pain / Angina, Heart Failure, Diabetes Mellitus, Eye Disorder, Fibromyalgia, GERD/Reflux, Hyperlipidemia, Hypertension, Myocardial Infarction (NE), Osteoarthritis (OA), Pneumonia, Renal Disease, Syncope, Vascular Disorder Additional Past Medical History / Comment(s): IDDM type II with insulin pump, neuropathy bilateral feet/legs, bilateral eye macular degeneration/diabetic retinopathy, CKD stage III, UTIs with one recently tx with antibiotic, bronchitis, IBS, constipation with last BM 10/14/19, DJD, osteopenia, L hip fracture with surgery, T12 compression fx with surgery, PAD with past bilateral foot wounds/currently has 2 small black spots on R great toe and L 2nd toe, vert igo, migraines, light headed with activity, bruises easily. Last Myocardial Infarction Date:: 02/12/2016 History of Any Multi-Drug Resistant Organisms: None Reported Past Surgical History: Adenoidectomy, AICD, Bariatric Surgery, Breast Surgery, Cholecystectomy, Heart Catheterization, Heart Catheterization With Stent, Hernia Repair, Joint Replacement, Orthopedic Surgery, Tonsillectomy Additional Past Surgical History / Comment(s): PCI/stent, AICD, lap band with removal/gastric sleeve, EGDs, colonoscopies, hiatal hernia surgery, multiple incisional hernia repairs/mesh, bilateral shoulder manipulation, total L hip arthroplasty, L little finger amputation, L elbow staph infection with surgery, T12 kyphoplasty/biopsy, R anterior PTBA with subsequent hematoma, L fempop arthrectomy/PTBA/stent, angiograms. bilateral breast benign biopsies, D&C. Past Anesthesia/Blood Transfusion Reactions: Postoperative Nausea & Vomiting (PONV) Additional Past Anesthesia/Blood Transfusion Reaction / Comment(s): Past blood transfusion 2015-no reaction. Date of Last Stent Placement:: 02/2016 Type of Cardiac Device: AICD Device Placement Date:: Past Psychological History: Anxiety, Depression Additional Psychological History / Comment(s): Pt resides with her spouse who assists in her care. She just initiated home care she believes with [facility]. She states she is mostly wheelchair bound. Until recently, she was able to transfer self to w/c. Her spouse drives. Spouse checks her feet and assists with managing her medications. She has an insulin pump/glucometer. Smoking Status: Former smoker Past Alcohol Use History: None Reported Additional Past Alcohol Use History / Comment(s): Pt started smoking at the age of 11 and quit smoking many yrs ago- in the late 1970s. Past Drug Use History: None Reported Additional Drug Use History / Comment(s): CBD gummies - Past Family History Father Family Medical History: Diabetes Mellitus Additional Family Medical History / Comment(s): Alcoholism. Mother Family Medical History: COPD, Diabetes Mellitus, Deep Vein Thrombosis (DVT) Additional Family Medical History / Comment(s): . Medications and Allergies Home Medications Medication Instructions Recorded Confirmed Type Omeprazole [PriLOSEC] 40 mg PO AC-BRKFST 08/06/14 03/28/22 History Rosuvastatin Calcium 40 mg PO DAILY 10/22/16 03/28/22 History Potassium Chloride ER [K-Dur 10] 10 meq PO DAILY 03/18/18 03/28/22 History Ezetimibe [Zetia] 10 mg PO DAILY 06/15/19 03/28/22 History ALPRAZolam [Xanax] 0.25 mg PO HS 03/21/20 03/28/22 History Ferrous Sulfate [Iron (65 MG 325 mg PO DAILY 03/21/20 03/28/22 History Elemental)] calcitrioL [Rocaltrol] 0.5 mcg PO DAILY 03/21/20 03/28/22 History Cyclobenzaprine [Flexeril] 10 mg PO HS 03/24/20 03/28/22 History Escitalopram [Lexapro] 20 mg PO DAILY 03/24/20 03/28/22 History ALPRAZolam [Xanax] 0.25 mg PO BID PRN 10/02/21 03/28/22 History Ergocalciferol [Vitamin D2 (1250 1,250 mcg PO Q28D 03/23/22 03/28/22 History Mcg = 53975 Iu)] INSULIN LISPRO (For Pump) [humaLOG 0.01 units SQ-PUMP CONTINUOUS 03/23/22 03/28/22 History (For Pump)] cilostazoL [Pletal] 50 mg PO BID 03/23/22 03/28/22 History Gabapentin 300 mg PO HS 03/28/22 03/28/22 History Aspirin 81 mg PO DAILY tab 04/05/22 Rx Metoprolol Succinate (ER) [Toprol 75 mg PO DAILY #90 tab 04/05/22 Rx XL] Nitroglycerin Sl Tabs [Nitrostat] 0.4 mg SUBLINGUAL Q5M PRN #100 tab 04/05/22 Rx Sennosides [Senokot] 8.6 mg PO BID tab 04/05/22 Rx Ticagrelor [Brilinta] 90 mg PO BID #60 tab 04/05/22 Rx predniSONE 10 mg PO DIRECTED #18 tab 04/05/22 Rx predniSONE 10 mg PO DAILY #0 04/05/22 03/28/22 Rx Allergies Allergy/AdvReac Type Severity Reaction Status Date / Time adhesive tape Allergy Rash/Hives Verified 03/28/22 13:16 Penicillins Allergy Rash/Hives Verified 03/28/22 13:16 atorvastatin AdvReac Myalgia Verified 03/28/22 13:16 meperidine HCl [From Demerol] AdvReac Hallucinati Verified 03/28/22 13:16 ons Physical Exam Vitals: Vital Signs Temp Pulse Pulse Resp BP Pulse Ox FiO2 04/05/22 11:26 90 04/05/22 11:14 94 04/05/22 08:00 98.2 F 99 20 122/72 98 04/05/22 07:25 94 11/28/22 07:17 90 90 L 04/05/22 03:57 97.9 F 90 16 119/72 99 04/05/22 00:00 98 F 94 15 110/68 91 L 04/04/22 20:42 88 04/04/22 20:31 88 93 L 21 04/04/22 20:00 97.9 F 16 118/74 96 04/04/22 16:00 98.3 F 95 16 111/67 94 L 04/04/22 15:26 90 04/04/22 15:16 90 04/04/22 14:00 16 04/04/22 12:00 98.1 F 95 16 118/58 95 Intake and Output 04/04/22 04/05/22 04/05/22 22:59 06:59 14:59 Intake Total 118 Output Total 425 Balance -425 118 Intake: Oral 118 Output: Urine 425 Straight 425 Other: Voiding Method Indwelling Catheter Indwelling Catheter Agent is awake, comfortable, no acute distress Examination of the heart S1 and S2 Examination of the lungs bilateral breath sounds are heard Abdomen is soft nontender Examination lower extremity shows no significant edema PROFESSOR OF PHILOSOPHY exam grossly intact Results - Lab Results Most recent lab results Calcium 8.3 mg/dL (8.4-10.2) L 04/05/22 09:11 Phosphorus 3.5 mg/dL (2.5-4.5) 04/04/22 08:12 Magnesium 2.4 mg/dL (1.6-2.3) H 03/28/22 05:46 04/05/22 09:11 04/05/22 09:11 Assessment and Plan Assessment: 1. Acute kidney injury mostly ATN currently nonoliguric. There is a component of ischemic ATN as well as systolic blood pressure was low on initial admission. Initially UA shows trace protein and no blood. Check ultrasound of the kidneys. No nephrotoxic agents noted. 2. Chronic kidney disease NKF stage III with baseline creatinine around 1.5 mg/dL secondary to diabetic kidney disease and nephrosclerosis. 3. Urine retention. Menjivar catheter may need to be reinserted. Patient has been evaluated by urology 4. Acute non-ST elevation NE status post cardiac catheterization and right coronary artery stent placement on 03/30/2022 Patient had repeat cardiac catheterization on 04/01/2022 5. CK D mineral bone disorder maintained on calcitriol 6. Microscopic hematuria most likely traumatic specimen as initial UA was quite benign. Plan: Check ultrasound of the kidneys Reinserted Menjivar catheter if patient is unable to void Check iron profile Continue to avoid nephrotoxic agents Avoid hypotension DC potassium Thank you for the consultation. We'll continue to follow the patient with you during her hospitalization
[2022-04-05 12:10] VITALS: BP 106/62; PULSE 95; TEMP 97.9
[2022-04-05] MEDS: SODIUM CHLORIDE 0.9% 1,000 ML IV SCH (12:16)
--- NOTE | 2022-04-05 14:37 | US ---
EXAMINATION TYPE: US kidneys/renal and bladder DATE OF EXAM: 04/05/2022 COMPARISON: Prior renal ultrasound November 30, 2021 CLINICAL HISTORY: dana. DANA EXAM MEASUREMENTS: Right Kidney: 9.5 x 4.5 x 4.4 cm Left Kidney: 9.0 x 4.0 x 4.1 cm technical limitations, patient scanned in reclining chair and large amount of overlying bowel louis nt Right Kidney: Scattered punctate echogenicity, possible multiple non-shadowing echogenic foci as on p rior exam Left Kidney: limited evaluation, no evidence of hydronephrosis Bladder: not fully distended Bilateral Jets seen: no Suboptimal study as noted above. Adequate distention of the bladder. Cortical thinning bilaterally. N o hydronephrosis. No concerning masses on images saved. IMPRESSION: Suboptimal study without hydronephrosis seen bilaterally.
--- NOTE | 2022-04-05 16:04 | P.PN ---
Subjective Progress Note Date: 04/05/22 This is a 67-year-old male patient was being seen for a follow-up. We saw this patient in consultation for shortness of breath. The patient is known to have CAD and the patient has undergone previous coronary intervention and stenting. He is also known to have congestion heart failure. He has an AICD in place. His other comorbid conditions include bronchial asthma, chronic stage III kidney disease her creatinine is at 1.7. The patient also has history of fibromyalgia, diabetes mellitus, acid reflux, hyperlipidemia as comorbid conditions. The patient is known to have CAD. In this current admission, the troponin peaked at 3.44. The chest x-ray was consistent with CHF. The patient is currently on IV heparin. PTT is therapeutic for now. The patient is also on Lasix 40 mg IV every 24 hours for diuresis. The patient is on aspirin and Plavix. The patient is on metoprolol 50 mg by mouth daily. Echocardiogram is still pending for now patient is resting comfortably in bed at 2 L/m nasal cannula. The patient is awaiting a cardiology evaluation. EKG showed normal evidence of any ST segment elevation. ProBNP level was elevated at 3450. The patient is seen today 03/30/2022 in follow-up on the elective care unit. She is currently resting comfortably in bed. Awake and alert in no acute distress. White count 9.3. Hemoglobin 9.3. Sodium 131. Potassium 5.0. BUN 43. Creatinine 1.89. Glucose 217. Troponins 26.5, 21.5. She did undergo cardiac catheterization and subsequent stenting of the distal right coronary artery, mid right coronary artery and proximal right coronary artery. She is resting flat in bed. Denies any chest pain. No palpitations. No worsening shortness of breath. She is maintaining good O2 saturations up to 100% on 2 L/m per nasal cannula. Afebrile. Hemodynamically stable. The patient is seen today 03/31/2000 and follow-up on the selective care unit. She is currently sitting up in bed. Awake and alert in no acute distress. She denies any worsening shortness of breath, cough or congestion. No chest pain. She mainly complains of fatigue. She is somewhat dyspneic on minimal exertion. The patient is maintaining O2 saturations in the 90s on 2 L/m per nasal cannula. White count 8.2. Hemoglobin 9.3. Platelets 191. Sodium 133. Potassium 4.4. Bicarb 21. BUN 46. Creatinine 1.82. Glucose 180. She remains on DuoNeb inhalations. The patient is seen today 04/05/2022 in follow-up on the selective care unit. She is currently awake and alert in no acute distress. She she is maintaining good O2 saturations in the 90s on room air. Feeling back to her baseline. No chest pain. No worsening shortness of breath, cough or congestion. She's been afebrile. Hemodynamically stable. White count 8.5. Hemoglobin 9.4. Sodium 13 5. Potassium 4.4. BUN 60. Creatinine 2.14. AST 47. ALT 41. The Kidneys Revealed No Hydronephrosis. No concerning masses. Objective - Vital Signs Vital signs: Vital Signs Temp 97.9 F 04/05/22 12:09 Pulse 95 04/05/22 12:09 Resp 20 04/05/22 12:09 BP 106/62 04/05/22 12:09 Pulse Ox 96 04/05/22 12:09 FiO2 21 04/04/22 20:31 Intake & Output 04/04/22 04/05/22 04/05/22 18:59 06:59 18:59 Intake Total 118 358 Output Total 425 Balance 118 -425 358 Intake: Oral 118 358 Output: Urine 425 Straight 425 Other: Voiding Method Indwelling Catheter Indwelling Catheter - Exam GENERAL EXAM: Alert, pleasant 67-year-old female, sitting up in bed, on room air, comfortable in no apparent distress. HEAD: Normocephalic. EYES: Normal reaction of pupils, equal size. NOSE: Clear with pink turbinates. THROAT: No erythema or exudates. NECK: No masses, no JVD. CHEST: No chest wall deformity. LUNGS: Equal air entry with no significant wheeze, rhonchi or crackles, diminished. CVS: S1 and S2 normal with no audible murmur, regular rhythm. ABDOMEN: No hepatosplenomegaly, normal bowel sounds, no guarding or rigidity. SPINE: No scoliosis or deformity SKIN: No rashes CENTRAL NERVOUS SYSTEM: No focal deficits, tone is normal in all 4 extremities. EXTREMITIES: There is no peripheral edema. No clubbing, no cyanosis. Peripheral pulses are intact. - Labs CBC & Chem 7: 04/05/22 09:11 04/05/22 09:11 Labs: Abnormal Lab Results - Last 24 Hours (Table) 04/04/22 04/04/22 04/05/22 Range/Units 16:27 19:57 05:55 RBC (3.80-5.40) m/uL Hgb (11.4-16.0) gm/dL Hct (34.0-46.0) % MCHC (31.0-37.0) g/dL RDW (11.5-15.5) % Sodium (137-145) mmol/L BUN (7-17) mg/dL Creatinine (0.52-1.04) mg/dL Glucose (74-99) mg/dL POC Glucose (mg/dL) 172 H 237 H 201 H (70-110) mg/dL Calcium (8.4-10.2) mg/dL AST (14-36) U/L ALT (4-34) U/L Total Protein (6.3-8.2) g/dL Albumin (3.5-5.0) g/dL 04/05/22 04/05/22 04/05/22 Range/Units 09:11 09:11 11:57 RBC 3.39 L (3.80-5.40) m/uL Hgb 9.4 L (11.4-16.0) gm/dL Hct 30.3 L (34.0-46.0) % MCHC 30.9 L (31.0-37.0) g/dL RDW 16.1 H (11.5-15.5) % Sodium 135 L (137-145) mmol/L BUN 60 H (7-17) mg/dL Creatinine 2.14 H (0.52-1.04) mg/dL Glucose 148 H (74-99) mg/dL POC Glucose (mg/dL) 147 H (70-110) mg/dL Calcium 8.3 L (8.4-10.2) mg/dL AST 47 H (14-36) U/L ALT 41 H (4-34) U/L Total Protein 5.8 L (6.3-8.2) g/dL Albumin 3.2 L (3.5-5.0) g/dL Assessment and Plan Assessment: Acute shortness of breath, most likely related to non-ST segment elevation myocardial infarction. Status post stenting 3 to the RCA in 03/30/2022 Acute hypoxic respiratory failure secondary to acute systolic congestive heart failure with an ejection fraction of 20-25%. Vague history of COPD/asthma, although the patient smoked remotely, and did not smoke a great deal. Previous history of PCI with stent placement. History of CHF. History of diabetes mellitus. History of hypertension. History of hyperlipidemia. Prior history of myocardial infarction. Stage III chronic kidney disease. AICD placement. Multiple other medical problems and comorbidities. Plan: The patient was seen and evaluated Currently stable and on room air Home once cleared by cardiology I have personally seen and examined the patient, performed the documentation and the assessment and plan as written. Number of minutes spent on the visit: 10.
== END 2022-04-05 16:00 | disposition home health service (06) | DRG 246 ==
LOC: EC 05:41 → 3SCARD 07:01
PROVIDERS: ADMIT Family Medicine; ATTEND Family Medicine
PROC: 4A023N7 Measurement of Cardiac Sampling and Pressure, Left Heart, Percutaneous Approach (ICD-10-PCS; principal; 2022-03-30 07:45)
PROC: 027036Z Dilation of Coronary Artery, One Artery with Three Drug-eluting Intraluminal Devices, Percutaneous Approach (ICD-10-PCS; principal; 2022-03-30 07:45)
PROC: B240ZZ3 Ultrasonography of Single Coronary Artery, Intravascular (ICD-10-PCS; principal; 2022-03-30 07:45)
PROC: B41F1ZZ Fluoroscopy of Right Lower Extremity Arteries using Low Osmolar Contrast (ICD-10-PCS; principal; 2022-03-30 07:45)
PROC: B2111ZZ Fluoroscopy of Multiple Coronary Arteries using Low Osmolar Contrast (ICD-10-PCS; principal; 2022-03-30 07:45)
PROC: 4A023N7 Measurement of Cardiac Sampling and Pressure, Left Heart, Percutaneous Approach (ICD-10-PCS; 2022-04-01)
PROC: B2111ZZ Fluoroscopy of Multiple Coronary Arteries using Low Osmolar Contrast (ICD-10-PCS; 2022-04-01)
DX: I21.4 Non-ST elevation (NSTEMI) myocardial infarction (principal); I50.23 Acute on chronic systolic (congestive) heart failure; J96.01 Acute respiratory failure with hypoxia; N17.0 Acute kidney failure with tubular necrosis; I13.0 Hypertensive heart and chronic kidney disease with heart failure and stage 1 through stage 4 chronic kidney disease, or unspecified chronic kidney disease; J44.1 Chronic obstructive pulmonary disease with (acute) exacerbation; I42.8 Other cardiomyopathies; N39.0 Urinary tract infection, site not specified; E87.1 Hypo-osmolality and hyponatremia; I48.92 Unspecified atrial flutter; N18.30 Chronic kidney disease, stage 3 unspecified; E11.22 Type 2 diabetes mellitus with diabetic chronic kidney disease; E11.65 Type 2 diabetes mellitus with hyperglycemia; E11.51 Type 2 diabetes mellitus with diabetic peripheral angiopathy without gangrene; E78.5 Hyperlipidemia, unspecified; E11.42 Type 2 diabetes mellitus with diabetic polyneuropathy; D63.1 Anemia in chronic kidney disease; R26.9 Unspecified abnormalities of gait and mobility; E66.01 Morbid (severe) obesity due to excess calories; F32.A Depression, unspecified; Z20.822 Contact with and (suspected) exposure to COVID-19; I25.5 Ischemic cardiomyopathy; Z68.33 Body mass index [BMI] 33.0-33.9, adult; E11.319 Type 2 diabetes mellitus with unspecified diabetic retinopathy without macular edema; H35.30 Unspecified macular degeneration; Z96.41 Presence of insulin pump (external) (internal); E87.5 Hyperkalemia; Z96.642 Presence of left artificial hip joint; K21.9 Gastro-esophageal reflux disease without esophagitis; M19.90 Unspecified osteoarthritis, unspecified site; M85.80 Other specified disorders of bone density and structure, unspecified site; F41.9 Anxiety disorder, unspecified; I25.119 Atherosclerotic heart disease of native coronary artery with unspecified angina pectoris; M79.7 Fibromyalgia; R31.29 Other microscopic hematuria; M89.8X9 Other specified disorders of bone, unspecified site; T50.2X5A Adverse effect of carbonic-anhydrase inhibitors, benzothiadiazides and other diuretics, initial encounter; T50.8X5A Adverse effect of diagnostic agents, initial encounter; Z87.440 Personal history of urinary (tract) infections; Z79.4 Long term (current) use of insulin; Z87.891 Personal history of nicotine dependence; Z95.5 Presence of coronary angioplasty implant and graft; Z95.810 Presence of automatic (implantable) cardiac defibrillator; Z99.3 Dependence on wheelchair; Z79.899 Other long term (current) drug therapy; Z79.82 Long term (current) use of aspirin; Z79.02 Long term (current) use of antithrombotics/antiplatelets; Z88.0 Allergy status to penicillin; Z88.8 Allergy status to other drugs, medicaments and biological substances; I25.2 Old myocardial infarction; Z98.84 Bariatric surgery status; Z87.01 Personal history of pneumonia (recurrent); Z86.19 Personal history of other infectious and parasitic diseases
CPT/HCPCS: 36415; 71045; 71046; 76770; 80048; 80053; 80069; 81001; 82009; 83036; 83735; 83880; 84484; 85025; 85027; 85610; 85730; 87086; 87636; 92978; 93005; 93306; 93458; 94640; 94760; 96365; 96366; 96375; 99291

== ENCOUNTER 2022-05-12 13:25 | Observation (INO) | payer MEDICARE ==
--- NOTE | 2022-05-12 14:04 | ED ---
General Adult HPI - General Source: patient, RN notes reviewed Mode of arrival: ambulatory Limitations: no limitations <Maggy Styles - Last Filed: 05/12/22 14:05> - General Source: patient, RN notes reviewed, old records reviewed - History of Present Illness -: week(s) (since ) Location: right (foot/heel) Severity scale (1-10): 5 Quality: constant Consistency: constant Associated Symptoms: other (Hyperglycemia) Treatments Prior to Arrival: other (Antibiotics) <Tree Rodriguez - Last Filed: 05/13/22 00:54> - General Chief complaint: Skin/Abscess/Foreign Body Stated complaint: gangrene right foot Time Seen by Provider: 05/12/22 16:29 - History of Present Illness Initial comments: Patient is a 67-year-old female presenting to the emergency room at the direction of her visiting nurse and primary care provider for further evaluation of the nonhealing pressure ulcer to her right heel which has turned black and there is concern of gangrene. She reports continuous pain in the heel since his heel pressure ulcer developed but no acute changes in pain. She denies any change in drainage. She is not mobile and is wheelchair-bound. She is insulin-dependent with an insulin pump and has a chronic indwelling Menjivar catheter. She has significant past medical history but denies any other acute complaints including chest pain, shortness of breath, abdominal pain, nausea, vomiting, altered mental status, lethargy, headache, dizziness, fevers or chills. (Maggy Styles) 67-year-old female presents to the emergency room with chronic right heel ulcer. States has been present since is being treated with wound care at home however continues to have discomfort. Denies drainage. She has been having her diabetes and wound care management by Dr. Levi. Did see her theatre instructor Dr Beth on Tuesday placed her on an antibiotic for urinary tract infection. Statse has indwelling catheter for incontinence. Denies any fevers, no nausea vomiting or diarrhea. Patient states that she does live at home alone. (Tree Rodriguez) - Related Data Home Medications Medication Instructions Recorded Confirmed Omeprazole [PriLOSEC] 40 mg PO AC-BRKFST 08/06/14 05/12/22 Rosuvastatin Calcium 40 mg PO DAILY 10/22/16 05/12/22 Potassium Chloride ER [K-Dur 10] 10 meq PO DAILY 03/18/18 05/12/22 Ezetimibe [Zetia] 10 mg PO DAILY 06/15/19 05/12/22 ALPRAZolam [Xanax] 0.25 mg PO HS 03/21/20 05/12/22 Ferrous Sulfate [Iron (65 MG 325 mg PO DAILY 03/21/20 05/12/22 Elemental)] calcitrioL [Rocaltrol] 0.5 mcg PO DAILY 03/21/20 05/12/22 Cyclobenzaprine [Flexeril] 10 mg PO HS 03/24/20 05/12/22 Escitalopram [Lexapro] 20 mg PO DAILY 03/24/20 05/12/22 ALPRAZolam [Xanax] 0.25 mg PO BID PRN 10/02/21 05/12/22 Ergocalciferol [Vitamin D2 (1250 1,250 mcg PO Q28D 03/23/22 05/12/22 Mcg = 43486 Iu)] INSULIN LISPRO (For Pump) [humaLOG 0.01 units SQ-PUMP CONTINUOUS 03/23/22 05/12/22 (For Pump)] cilostazoL [Pletal] 50 mg PO BID 03/23/22 05/12/22 Gabapentin 300 mg PO BID 03/28/22 05/12/22 Furosemide [Lasix] 20 mg PO DAILY 05/12/22 05/12/22 Metoprolol Succinate (ER) [Toprol 25 mg PO DAILY 05/12/22 05/12/22 XL] Previous Rx's Medication Instructions Recorded Aspirin 81 mg PO DAILY tab 04/05/22 Nitroglycerin Sl Tabs [Nitrostat] 0.4 mg SUBLINGUAL Q5M PRN #100 tab 04/05/22 Sennosides [Senokot] 8.6 mg PO BID tab 04/05/22 Ticagrelor [Brilinta] 90 mg PO BID #60 tab 04/05/22 Allergies Allergy/AdvReac Type Severity Reaction Status Date / Time adhesive tape Allergy Rash/Hives Verified 05/12/22 20:35 Penicillins Allergy Rash/Hives Verified 05/12/22 20:35 atorvastatin AdvReac Myalgia Verified 05/12/22 20:35 meperidine HCl [From Demerol] AdvReac Hallucinati Verified 05/12/22 20:35 ons Review of Systems ROS Other: All systems not noted in ROS Statement are negative. <Maggy Styles - Last Filed: 05/12/22 14:05> ROS Other: All systems not noted in ROS Statement are negative. <Tree Rodriguez - Last Filed: 05/13/22 00:54> ROS Statement: Those systems with pertinent positive or pertinent negative responses have been documented in the HPI. Past Medical History Past Medical History: Asthma, Coronary Artery Disease (CAD), Chest Pain / Angina, Heart Failure, Diabetes Mellitus, Eye Disorder, Fibromyalgia, GERD/Reflux, Hyperlipidemia, Hypertension, Myocardial Infarction (SD), Os teoarthritis (OA), Pneumonia, Renal Disease, Syncope, Vascular Disorder Additional Past Medical History / Comment(s): IDDM type II with insulin pump, neuropathy bilateral feet/legs, bilateral eye macular degeneration/diabetic retinopathy, CKD stage III, UTIs with one recently tx with antibiotic, bronchitis, IBS, constipation with last BM 10/14/19, DJD, osteopenia, L hip frac ture with surgery, T12 compression fx with surgery, PAD with past bilateral foot wounds/currently has 2 small black spots on R great toe and L 2nd toe, vertigo, migraines, light headed with activity, bruises easily. Last Myocardial Infarction Date:: 02/12/2016 History of Any Multi-Drug Resistant Organisms: None Reported Past Surgical History: Adenoidectomy, AICD, Bariatric Surgery, Breast Surgery, Cholecystectomy, Heart Catheterization, Heart Catheterization With Stent, Hernia Repair, Joint Replacement, Orthopedic Surgery, Tonsillectomy Additional Past Surgical History / Comment(s): PCI/stent, AICD, lap band with removal/gastric sleeve, EGDs, colonoscopies, hiatal hernia surgery, multiple in cisional hernia repairs/mesh, bilateral shoulder manipulation, total L hip arthroplasty, L little finger amputation, L elbow staph infection with surgery, T12 kyphoplasty/biopsy, R anterior PTBA with subsequent hematoma, L fempop arthrectomy/PTBA/stent, angiograms. bilateral breast benign biopsies, D&C. Past Anesthesia/Blood Transfusion Reactions: Postoperative Nausea & Vomiting (PONV) Additional Past Anesthesia/Blood Transfusion Reaction / Comment(s): Past blood transfusion 2016-no reaction. Date of Last Stent Placement:: 02/2016 Type of Cardiac Device: AICD Device Placement Date:: Past Psychological History: Anxiety, Depression Smoking Status: Former smoker Past Alcohol Use History: None Reported Past Drug Use History: None Reported - Past Family History Father Family Medical History: Diabetes Mellitus Additional Family Medical History / Comment(s): Alcoholism. Mother Family Medical History: COPD, Diabetes Mellitus, Deep Vein Thrombosis (DVT) Additional Family Medical History / Comment(s): . <Maggy Styles - Last Filed: 05/12/22 14:05> General Exam Limitations: no limitations <Maggy Styles - Last Filed: 05/12/22 14:05> General appearance: alert, in no apparent distress Head exam: Present: atraumatic Eye exam: Absent: scleral icterus, conjunctival injection Respiratory exam: Absent: respiratory distress, accessory muscle use Cardiovascular Exam: Present: bradycardia GI/Abdominal exam: Present: soft. Absent: distended, tenderness, rigid Extremities exam: Absent: pedal edema Right Foot/Toe exam: Present: tenderness, erythema (calcaneous ulcer medial, no drainage) Neurovascular tendon exam: Absent: extremity cold to touch, pallor, foot drop Neurological exam: Present: alert, oriented X3 Psychiatric exam: Present: normal affect, normal mood Skin exam: Present: warm, dry, normal color, other (Multiple abrasions to bilateral lower extremities patient claims from kitten). Absent: cyanosis, diaphoretic, pallor <Tree Rodriguez - Last Filed: 05/13/22 00:54> Course Vital Signs 05/12/22 05/12/22 13:54 23:00 Temperature 98.9 F Pulse Rate 59 L 69 Respiratory 20 18 Rate Blood Pressure 101/66 118/72 O2 Sat by Pulse 100 96 Oximetry Medical Decision Making - Lab Data Result diagrams: 05/12/22 16:42 05/12/22 16:42 <Tree Rodriguez - Last Filed: 05/13/22 00:54> - Medical Decision Making Patient complaining of hyperglycemia and increased pain to ulcer of right foot. Labs show no evidence of leukocytosis. Potassium 2.8. BUN and creatinine elevated patient does have a history of chronic kidney disease. Patient was given potassium supplementation for potassium 2.8. She'll be placed in observation for hypokalemia, diabetic foot ulcer. Case discussed with Dr. Castro patient is agreeable to this plan of care. I did speak with Dr. Levi who recommended nephrology consult. Was pt. sent in by a medical professional or institution? @ -Visiting nurse Did you speak to anyone other than the patient for history? @ -No Did you review nursing and triage notes? @ -Yes I agree Were old charts reviewed? @ -No Differential Diagnosis? @ -Cellulitis, osteomyelitis, fracture X-rays interpreted by me (1pt min.)? @ -Yes no evidence of fracture. Radiologist interpretation no shane lytic destruction seen. Underlying stress/insufficiency fracture or chronic osteomyelitis. What testing was considered but not performed? (CT, X-rays, U/S, labs)? Why? @ No What meds were considered but not given? Why? @ -Antibiotics were considered however patient is currently on oral antibiotics Did you discuss the management of the patient with other professionals? @ -No Did you reconcile home meds? @ -Reconcile by pharmacy Was smoking cessation discussed for >3mins.? @ -No Was critical care preformed (if so, how long)? @ -No Were there social determinants of health that impacted care today? How? (Homelessness, low income, unemployed, alcoholism, drug addiction, transportation, low edu. Level, literacy, decrease access to med. care, group home, rehab)? @ -No Was there de-escalation of care discussed even if they declined? (Discuss DNR or withdrawal of care, Hospice)? @ -No What co-morbidities impacted this encounter? (DM, HTN, Smoking, COPD, CAD, Cancer, CVA, Hep., AIDS, mental health diagnosis, sleep apnea, morbid obesity)? @ -Diabetes, cornary artery disease, asthma, heart failure, diabetes, hypertension, SD, renal disease Was patient admitted / discharged? @ -Admitted Drug Therapy requiring intensive monitoring for toxicity (Heparin, Nitro, Insulin, Cardizem)? @ -Potassium chloride Were any procedures done? @ -No Diagnosis/symptom? @ -Hypokalemia, hyperglycemia, diabetic foot ulcer Acute, or Chronic, or Acute on Chronic? @ -Acute, acute on chronic Uncomplicated (without systemic symptoms) or Complicated (systemic symptoms)? @ -Uncomplicated Side effects of treatment? @ -[none] Exacerbation, Progression, or Severe Exacerbation] @ -[no] Poses a threat to life or bodily function? @ -[no] (Tree Rodriguez) - Lab Data Lab Results 05/12/22 05/12/22 05/12/22 Range/Units 16:42 16:42 16:42 WBC 9.9 (3.8-10.6) k/uL RBC 4.61 (3.80-5.40) m/uL Hgb 12.9 D (11.4-16.0) gm/dL Hct 39.1 (34.0-46.0) % MCV 84.6 (80.0-100.0) fL MCH 28.0 (25.0-35.0) pg MCHC 33.0 (31.0-37.0) g/dL RDW 16.7 H (11.5-15.5) % Plt Count 300 (150-450) k/uL MPV 8.3 Neutrophils % 73 % Lymphocytes % 19 % Monocytes % 5 % Eosinophils % 1 % Basophils % 1 % Neutrophils # 7.2 (1.3-7.7) k/uL Lymphocytes # 1.9 (1.0-4.8) k/uL Monocytes # 0.5 (0-1.0) k/uL Eosinophils # 0.1 (0-0.7) k/uL Basophils # 0.1 (0-0.2) k/uL Hypochromasia Slight Anisocytosis Slight Sodium 134 L (137-145) mmol/L Potassium 2.8 L (3.5-5.1) mmol/L Chloride 95 L (98-107) mmol/L Carbon Dioxide 27 (22-30) mmol/L Anion Gap 12 mmol/L BUN 39 H (7-17) mg/dL Creatinine 2.56 H (0.52-1.04) mg/dL Est GFR (CKD-EPI)AfAm 22 (>60 ml/min/1.73 sqM) Est GFR (CKD-EPI)NonAf 19 (>60 ml/min/1.73 sqM) Glucose 232 H (74-99) mg/dL Plasma Lactic Acid Hugh 2.0 (0.7-2.0) mmol/L Calcium 9.0 (8.4-10.2) mg/dL Total Bilirubin 1.4 H (0.2-1.3) mg/dL AST 61 H (14-36) U/L ALT 23 (4-34) U/L Alkaline Phosphatase 103 (38-126) U/L Total Protein 6.9 (6.3-8.2) g/dL Albumin 3.8 (3.5-5.0) g/dL Disposition <Maggy Styles - Last Filed: 05/12/22 14:05> Decision Date: 05/12/22 Decision Time: 18:31 <Tree Rodriguez - Last Filed: 05/13/22 00:54> Clinical Impression: Hypokalemia, Chronic ulcer of right foot due to diabetes mellitus, Hyperglycemia, CKD (chronic kidney disease), Indwelling Menjivar catheter present Disposition: ADMITTED IP TO THIS HOSP
--- NOTE | 2022-05-12 15:16 | XR ---
EXAMINATION TYPE: XR foot complete 3 views RT DATE OF EXAM: 05/12/2022 COMPARISON: 09/18/2015 HISTORY: 67-year-old female nonhealing wound at the heel TECHNIQUE: 3 views FINDINGS: Marked osteopenia. Mild hallux valgus and bunion. Os peroneum noted. The degree of osteopen ia limits evaluation. There is overlying dressing at the heel limiting visualization. No shane lytic destruction is clearly seen. There is some sclerosis at the posterior calcaneus. Overlying density ma y correspond to some overlying dressing. IMPRESSION: 1. Density overlying the heel soft tissues may reflect overlying dressing. This limits detailed visua lization of the posterior calcaneal cortex. 2. No obvious shane lytic destruction is seen. However, there is some bony sclerosis here. Query unde rlying stress/insufficiency fracture or chronic osteomyelitis. Again, no shane lytic destruction seen . Coned down views after removing any dressing if clinically indicated.
[2022-05-12 17:00] LABS: Albumin 3.8 g/dL (3.5-5.0); Potassium 2.8 mmol/L (3.5-5.1); Total Bilirubin 1.4 mg/dL (0.2-1.3); Total Protein 6.9 g/dL (6.3-8.2)
[2022-05-12 17:51] LABS: Anisocytosis Slight; Basophils # (A) 0.1 k/uL (0-0.2); Basophils % (A) 1 %; Eosinophils # (A) 0.1 k/uL (0-0.7); Eosinophils % (A) 1 %; HCT 39.1 % (34.0-46.0); Hypochromasia Slight; Lymphocytes # (A) 1.9 k/uL (1.0-4.8); Lymphocytes % (A) 19 %; MCV 84.6 fL (80.0-100.0); Mean Platelet Volume 8.3; Monocytes # (A) 0.5 k/uL (0-1.0); Monocytes % (A) 5 %; Neutrophils # (A) 7.2 k/uL (1.3-7.7); Neutrophils % (A) 73 %; Platelet Count 300 k/uL (150-450); RBC 4.61 m/uL (3.80-5.40); RDW 16.7 % (11.5-15.5); WBC 9.9 k/uL (3.8-10.6)
[2022-05-12 18:04] LABS: HGB 12.9 gm/dL (11.4-16.0)
[2022-05-12] MEDS ORDERED: Potassium Replacement Protocol 1 EACH MISC MISCELLANE PRN (18:06)
[2022-05-12] MEDS: POTASSIUM CHLORIDE ER 20 MEQ TAB.ER PO SCH ×3 (18:37→23:19)
[2022-05-12] MEDS: POTASSIUM CHLORIDE 10 MEQ in WATER FOR INJECTION 1 100ML.BAG IVPB SCH ×2 (18:38→22:24)
[2022-05-12] MEDS ORDERED: NALOXONE 0.4 MG/ML 1 ML VIAL IV PRN (18:49)
[2022-05-12] MEDS: traMADol 50 MG TAB PO PRN (20:35)
[2022-05-13] MEDS ORDERED: ALPRAZolam 0.25 MG TAB PO PRN (00:42)
[2022-05-13] MEDS: traMADol 50 MG TAB PO PRN (01:34)
[2022-05-13] MEDS: GABAPENTIN 300 MG CAP PO SCH ×2 (01:35→21:40)
[2022-05-13] MEDS: ALPRAZolam 0.25 MG TAB PO SCH ×2 (01:35→21:40)
[2022-05-13] MEDS: POTASSIUM CHLORIDE 10 MEQ in WATER FOR INJECTION 1 100ML.BAG IVPB SCH ×3 (03:00→05:25)
[2022-05-13 04:02] LABS: Glucose,Whole Blood 249 mg/dL (70-110)
[2022-05-13 05:14] LABS: ALT 21 U/L (4-34); AST 58 U/L (14-36); African American GFR (CKD) 22 (>60 ml/min/1.73 sqM); Albumin 3.1 g/dL (3.5-5.0); Albumin/Globulin Ratio 1.1; Alkaline Phosphatase 89 U/L (38-126); Anion Gap 8 mmol/L; Blood Urea Nitrogen 39 mg/dL (7-17); Calcium 8.6 mg/dL (8.4-10.2); Carbon Dioxide 24 mmol/L (22-30); Chloride 99 mmol/L (98-107); Globulin 2.7 g/dL; Glucose 213 mg/dL (74-99); Non-African American GFR(CKD) 20 (>60 ml/min/1.73 sqM); Sodium 131 mmol/L (137-145); Total Bilirubin 1.2 mg/dL (0.2-1.3); Total Protein 5.8 g/dL (6.3-8.2)
[2022-05-13] MEDS: ASPIRIN 81 MG PO SCH (08:20)
[2022-05-13] MEDS: ACETAMINOPHEN TAB 500 MG TAB PO PRN ×2 (08:20→22:05)
[2022-05-13] MEDS: TICAGRELOR 90 MG TAB PO SCH ×2 (08:20→22:05)
[2022-05-13] MEDS ORDERED: DEXTROSE 50% SYRINGE 50 ML IVP PRN ×2 (09:14)
[2022-05-13] MEDS ORDERED: NITROGLYCERIN SL TABS 0.4 MG TAB SUBLINGUAL PRN (09:19)
[2022-05-13] MEDS ORDERED: PANTOPRAZOLE 40 MG/10 ML VIAL IVP SCH (09:30)
[2022-05-13 10:35] LABS: Glucose,Whole Blood 249 mg/dL (70-110)
[2022-05-13] MEDS: INSULIN DETEMIR (LEVEMIR) 100 UNIT/ML SYR SQ SCH (10:42)
--- NOTE | 2022-05-13 11:36 | P.CONS ---
History of Present Illness - Reason for Consult Consult date: 05/13/22 wound care - History of Present Illness This is a 67-year-old patient being seen in the ER for a nonhealing ulceration to the right medial calcaneus. Patient stated that the ulceration started around Thanksgiving she seen her primary care physician who opened up the ulceration of her antibiotics. At this time it is a unstageable pressure ulcer with significant amount of ecchymosis and necrosis minimal granulation noted to the site. Significant amount of slough and nonviable tissue. Patient's past medical history significant for chronic artery disease, heart failure, diabetes, fibromyalgia, GERD, hyperlipidemia, hypertension, myocardial infection, Trevor arthritis, chronic kidney disease stage III. Review Of Systems: Constitutional: No fever, no chills, no night sweats. No weight change. No weakness, fatigue or lethargy. No daytime sleepiness. Integumentary:reports wounds, no lesions. No rash or pruritus. No unusual bruising. No change in hair or nails. Physical exam: General Appearance: Alert, cooperative, no distress, appears stated age. Skin: See HPI all other Skin color, texture, tugor normal, no rashes or lesions. Neurologic: Alert oriented x3 Assessment: 1. No unstageable ulcer to right medial calcaneus 2. Diabetes with foot ulcer Plan: 1. Apply Santyl to the right calcaneus, saline moistened gauze, dry gauze, rolled gauze and secure with paper tape. Patient is scheduled to see the wound care center on May 19 at 2:[address] Odilia stuart. Thank you for the consultation any questions was contact the wound care center DNP note has been reviewed and discussed with Dr. Barroso and the impression and plan of care has been directed as dictated. Past Medical History Past Medical History: Asthma, Coronary Artery Disease (CAD), Chest Pain / Angina, Heart Failure, Diabetes Mellitus, Eye Disorder, Fibromyalgia, GERD/Reflux, Hyperlipidemia, Hypertension, Myocardial Infarction (ID), Osteoarthritis (OA), Pneumonia, Renal Disease, Syncope, Vascular Disorder Additional Past Medical History / Comment(s): IDDM type II with insulin pump, neuropathy bilateral feet/legs, bilateral eye macular degeneration/diabetic retinopathy, CKD stage III, UTIs with one recently tx with antibiotic, bronchitis, IBS, constipation with last BM 10/14/19, DJD, osteopenia, L hip fracture with surgery, T12 compression fx with surgery, PAD with past bilateral foot wounds/currently has 2 small black spots on R great toe and L 2nd toe, vertigo, migraines, light headed with activity, bruises easily. Last Myocardial Infarction Date:: 02/12/2016 History of Any Multi-Drug Resistant Organisms: None Reported Past Surgical History: Adenoidectomy, AICD, Bariatric Surgery, Breast Surgery, Cholecystectomy, Heart Catheterization, Heart Catheterization With Stent, Hernia Repair, Joint Replacement, Orthopedic Surgery, Tonsillectomy Additional Past Surgical History / Comment(s): PCI/stent, AICD, lap band with removal/gastric sleeve, EGDs, colonoscopies, hiatal hernia surgery, multiple incisional hernia repairs/mesh, bilateral shoulder manipulation, total L hip arthroplasty, L little finger amputation, L elbow staph infection with surgery, T12 kyphoplasty/biopsy, R anterior PTBA with subsequent hematoma, L fempop arthrectomy/PTBA/stent, angiograms. bilateral breast benign biopsies, D&C. Past Anesthesia/Blood Transfusion Reactions: Postoperative Nausea & Vomiting (PONV) Additional Past Anesthesia/Blood Transfusion Reaction / Comm: Past blood transfusion 2015-no reaction. Date of Last Stent Placement:: 02/2016 Type of Cardiac Device: AICD Device Placement Date:: Past Psychological History: Anxiety, Depression Smoking Status: Former smoker Past Alcohol Use History: None Reported Past Drug Use History: None Reported - Past Family History Father Family Medical History: Diabetes Mellitus Additional Family Medical History / Comment(s): Alcoholism. Mother Family Medical History: COPD, Diabetes Mellitus, Deep Vein Thrombosis (DVT) Additional Family Medical History / Comment(s): . Medications and Allergies Home Medications Medication Instructions Recorded Confirmed Type Omeprazole [PriLOSEC] 40 mg PO AC-BRKFST 08/06/14 05/12/22 History Rosuvastatin Calcium 40 mg PO DAILY 10/22/16 05/12/22 History Potassium Chloride ER [K-Dur 10] 10 meq PO DAILY 03/18/18 05/12/22 History Ezetimibe [Zetia] 10 mg PO DAILY 06/15/19 05/12/22 History ALPRAZolam [Xanax] 0.25 mg PO HS 03/21/20 05/12/22 History Ferrous Sulfate [Iron (65 MG 325 mg PO DAILY 03/21/20 05/12/22 History Elemental)] calcitrioL [Rocaltrol] 0.5 mcg PO DAILY 03/21/20 05/12/22 History Cyclobenzaprine [Flexeril] 10 mg PO HS 03/24/20 05/12/22 History Escitalopram [Lexapro] 20 mg PO DAILY 03/24/20 05/12/22 History ALPRAZolam [Xanax] 0.25 mg PO BID PRN 10/02/21 05/12/22 History Ergocalciferol [Vitamin D2 (1250 1,250 mcg PO Q28D 03/23/22 05/12/22 History Mcg = 76258 Iu)] INSULIN LISPRO (For Pump) [humaLOG 0.01 units SQ-PUMP CONTINUOUS 03/23/22 05/12/22 History (For Pump)] cilostazoL [Pletal] 50 mg PO BID 03/23/22 05/12/22 History Gabapentin 300 mg PO BID 03/28/22 05/12/22 History Aspirin 81 mg PO DAILY tab 04/05/22 05/12/22 Rx Nitroglycerin Sl Tabs [Nitrostat] 0.4 mg SUBLINGUAL Q5M PRN #100 tab 04/05/22 05/12/22 Rx Sennosides [Senokot] 8.6 mg PO BID tab 04/05/22 05/12/22 Rx Ticagrelor [Brilinta] 90 mg PO BID #60 tab 04/05/22 05/12/22 Rx Furosemide [Lasix] 20 mg PO DAILY 05/12/22 05/12/22 History Metoprolol Succinate (ER) [Toprol 25 mg PO DAILY 05/12/22 05/12/22 History XL] Allergies Allergy/AdvReac Type Severity Reaction Status Date / Time adhesive tape Allergy Rash/Hives Verified 05/12/22 20:35 Penicillins Allergy Rash/Hives Verified 05/12/22 20:35 atorvastatin AdvReac Myalgia Verified 05/12/22 20:35 meperidine HCl [From Demerol] AdvReac Hallucinati Verified 05/12/22 20:35 ons Physical Exam Vitals: Vital Signs Temp Pulse Pulse Resp BP BP Pulse Ox 05/13/22 08:05 97.7 F 90 16 123/71 05/13/22 04:00 88 18 127/61 97 05/12/22 23:00 69 18 118/72 96 05/12/22 13:54 98.9 F 59 L 20 101/66 100 Intake and Output 05/12/22 05/13/22 05/13/22 22:59 06:59 14:59 Other: Voiding Method Indwelling Catheter Results CBC & Chem 7: 05/12/22 16:42 05/13/22 04:19 Labs: Abnormal Lab Results - Last 24 Hours (Table) 05/12/22 05/12/22 05/13/22 Range/Units 16:42 16:42 04:01 RDW 16.7 H (11.5-15.5) % Sodium 134 L (137-145) mmol/L Potassium 2.8 L (3.5-5.1) mmol/L Chloride 95 L (98-107) mmol/L BUN 39 H (7-17) mg/dL Creatinine 2.56 H (0.52-1.04) mg/dL Glucose 232 H (74-99) mg/dL POC Glucose (mg/dL) 249 H (70-110) mg/dL Total Bilirubin 1.4 H (0.2-1.3) mg/dL AST 61 H (14-36) U/L Total Protein (6.3-8.2) g/dL Albumin (3.5-5.0) g/dL 05/13/22 05/13/22 Range/Units 04:19 10:34 RDW (11.5-15.5) % Sodium 131 L (137-145) mmol/L Potassium (3.5-5.1) mmol/L Chloride (98-107) mmol/L BUN 39 H (7-17) mg/dL Creatinine 2.47 H (0.52-1.04) mg/dL Glucose 213 H (74-99) mg/dL POC Glucose (mg/dL) 249 H (70-110) mg/dL Total Bilirubin (0.2-1.3) mg/dL AST 58 H (14-36) U/L Total Protein 5.8 L (6.3-8.2) g/dL Albumin 3.1 L (3.5-5.0) g/dL Assessment and Plan (1) Unstageable pressure ulcer of right heel Current Visit: Yes Status: Acute Code(s): L89.610 - PRESSURE ULCER OF RIGHT HEEL, UNSTAGEABLE SNOMED Code(s): 09962525783673 (2) Chronic ulcer of right foot due to diabetes mellitus Current Visit: Yes Status: Acute Code(s): E11.621 - TYPE 2 DIABETES MELLITUS WITH FOOT ULCER; L97.519 - NON-PRS CHRONIC ULCER OTH PRT RIGHT FOOT W UNSP SEVERITY SNOMED Code(s): 155818194
[2022-05-13 12:59] LABS: Glucose,Whole Blood 254 mg/dL (70-110)
[2022-05-13] MEDS: INSULIN ASPART (NovoLOG) 100 UNIT/ML VIAL SQ SCH ×3 (13:16→21:40)
[2022-05-13] MEDS: METOPROLOL SUCCINATE (ER) 25 MG TAB.ER.24H PO SCH (13:17)
[2022-05-13] MEDS: PANTOPRAZOLE 40 MG TABLET PO SCH (13:17)
[2022-05-13] MEDS: ESCITALOPRAM 20 MG TAB PO SCH (13:17)
[2022-05-13] MEDS: FERROUS SULFATE 325 MG TAB PO SCH (13:17)
[2022-05-13] MEDS: cilostazoL 100 MG TAB PO SCH ×2 (13:18→22:04)
--- NOTE | 2022-05-13 14:14 | P.HPIM ---
History of Present Illness H&P Date: 05/13/22 Chief Complaint: High blood sugars at home, diabetic foot ulcer This is a pleasant 67-year-old female with past medical history of CAD, NSTEMI status post PCI distal RCA, mid RCA and proximal RCA on 03/30, ischemic cardiomyopathy, EF 20-25%, AICD, peripheral artery disease s/p stenting of proximal right anterior tibial artery, hypertension,type 2 diabetes, and dyslipidemia and multiple other medical issues, directed to the ER by [facility] care nurse regarding further evaluation of diabetic nonhealing ulcer of right heel without acute changes; no drainage, no foul odor. Patient is wheelchair bound, and no weightbearing on the affected extremity. Foot x-ray reports density overlying the heel soft tissues may reflect underlying dressing Limited study detailing visualization of the posterior calcaneal cortex, no obvious shane destruction 16, bony sclerosis, query underlying stress/insufficiency fracture or chronic osteomyelitis. Patient reports her blood sugars were uncontrolled, in the 500s at home. Blood sugar on admission 249. Has insulin pump, currently off-. Blood sugars ranging low 200s to 250s.Chronic indwelling Menjivar catheter secondary to urinary retention and scheduled to see Dr. Vega. Menjivar catheter has been present 10 days. Creatinine 2.56 on admission, baseline around 2.Reports ongoing right heel pain, not worsened. Patient receives treatment at the wound care center, last treatment around Thanksgiving. Afebrile, normal WBC. Lactic acid 2. Hypokalemic on admission with potassium 2.8, supplemented and currently 5. Denies any chest pain, palpitations or shortness of breath. Denies any lightheadedness, dizziness or focal deficits. Denies any nausea vomiting or diarrhea. Denies abdominal pain. Review of Systems ROS Other: All systems not noted in ROS Statement are negative. ROS Statement: Those systems with pertinent positive or pertinent negative responses have been documented in the HPI. Past Medical History Past Medical History: Asthma, Coronary Artery Disease (CAD), Chest Pain / Angina, Heart Failure, Diabetes Mellitus, Eye Disorder, Fibromyalgia, GERD/Reflux, Hyperlipidemia, Hypertension, Myocardial Infarction ([place]), Osteoarthritis (OA), Pneumonia, Renal Disease, Syncope, Vascular Disorder Additional Past Medical History / Comment(s): IDDM type II with insulin pump, neuropathy bilateral feet/legs, bilateral eye macular degeneration/diabetic retinopathy, CKD stage III, UTIs with one recently tx with antibiotic, bronchitis, IBS, constipation with last BM 10/14/19, DJD, osteopenia, L hip fracture with surgery, T12 compression fx with surgery, PAD with past bilateral foot wounds/currently has 2 small black spots on R great toe and L 2nd toe, vertigo, migraines, light headed with activity, bruises easily. Last Myocardial Infarction Date:: 02/12/2016 History of Any Multi-Drug Resistant Organisms: None Reported Past Surgical History: Adenoidectomy, AICD, Bariatric Surgery, Breast Surgery, Cholecystectomy, Heart Catheterization, Heart Catheterization With Stent, Hernia Repair, Joint Replacement, Orthopedic Surgery, Tonsillectomy Additional Past Surgical History / Comment(s): PCI/stent, AICD, lap band with removal/gastric sleeve, EGDs, colonoscopies, hiatal hernia surgery, multiple incisional hernia repairs/mesh, bilateral shoulder manipulation, total L hip arthroplasty, L little finger amputation, L elbow staph infection with surgery, T12 kyphoplasty/biopsy, R anterior PTBA with subsequent hematoma, L fempop arthrectomy/PTBA/stent, angiograms. bilateral breast benign biopsies, D&C. Past Anesthesia/Blood Transfusion Reactions: Postoperative Nausea & Vomiting (PONV) Additional Past Anesthesia/Blood Transfusion Reaction / Comment(s): Past blood transfusion 2015-no reaction. Date of Last Stent Placement:: 02/2016 Type of Cardiac Device: AICD Device Placement Date:: Past Psychological History: Anxiety, Depression Smoking Status: Former smoker Past Alcohol Use History: None Reported Past Drug Use History: None Reported - Past Family History Father Family Medical History: Diabetes Mellitus Additional Family Medical History / Comment(s): Alcoholism. Mother Family Medical History: COPD, Diabetes Mellitus, Deep Vein Thrombosis (DVT) Additional Family Medical History / Comment(s): . Medications and Allergies Home Medications Medication Instructions Recorded Confirmed Type Omeprazole [PriLOSEC] 40 mg PO AC-BRKFST 08/06/14 05/12/22 History Rosuvastatin Calcium 40 mg PO DAILY 10/22/16 05/12/22 History Potassium Chloride ER [K-Dur 10] 10 meq PO DAILY 03/18/18 05/12/22 History Ezetimibe [Zetia] 10 mg PO DAILY 06/15/19 05/12/22 History ALPRAZolam [Xanax] 0.25 mg PO HS 03/21/20 05/12/22 History Ferrous Sulfate [Iron (65 MG 325 mg PO DAILY 03/21/20 05/12/22 History Elemental)] calcitrioL [Rocaltrol] 0.5 mcg PO DAILY 03/21/20 05/12/22 History Cyclobenzaprine [Flexeril] 10 mg PO HS 03/24/20 05/12/22 History Escitalopram [Lexapro] 20 mg PO DAILY 03/24/20 05/12/22 History ALPRAZolam [Xanax] 0.25 mg PO BID PRN 10/02/21 05/12/22 History Ergocalciferol [Vitamin D2 (1250 1,250 mcg PO Q28D 03/23/22 05/12/22 History Mcg = 03525 Iu)] INSULIN LISPRO (For Pump) [humaLOG 0.01 units SQ-PUMP CONTINUOUS 03/23/22 05/12/22 History (For Pump)] cilostazoL [Pletal] 50 mg PO BID 03/23/22 05/12/22 History Gabapentin 300 mg PO BID 03/28/22 05/12/22 History Aspirin 81 mg PO DAILY tab 04/05/22 05/12/22 Rx Nitroglycerin Sl Tabs [Nitrostat] 0.4 mg SUBLINGUAL Q5M PRN #100 tab 04/05/22 05/12/22 Rx Sennosides [Senokot] 8.6 mg PO BID tab 04/05/22 05/12/22 Rx Ticagrelor [Brilinta] 90 mg PO BID #60 tab 04/05/22 05/12/22 Rx Furosemide [Lasix] 20 mg PO DAILY 05/12/22 05/12/22 History Metoprolol Succinate (ER) [Toprol 25 mg PO DAILY 05/12/22 05/12/22 History XL] Allergies Allergy/AdvReac Type Severity Reaction Status Date / Time adhesive tape Allergy Rash/Hives Verified 05/12/22 20:35 Penicillins Allergy Rash/Hives Verified 05/12/22 20:35 atorvastatin AdvReac Myalgia Verified 05/12/22 20:35 meperidine HCl [From Demerol] AdvReac Hallucinati Verified 05/12/22 20:35 ons Physical Exam Vitals: Vital Signs Temp Pulse Pulse Resp BP BP Pulse Ox 05/13/22 08:05 97.7 F 90 16 123/71 05/13/22 04:00 88 18 127/61 97 05/12/22 23:00 69 18 118/72 96 05/12/22 13:54 98.9 F 59 L 20 101/66 100 Intake and Output 05/12/22 05/13/22 05/13/22 22:59 06:59 14:59 Other: Voiding Method Indwelling Catheter PHYSICAL EXAMINATION Vital Signs: As above GENERAL: Alert and oriented 3, sitting up on stretcher, no acute distress HEENT: Head is normocephalic. No JVD. CHEST EXAMINATION: Essentially clear bilaterally. Bilateral bases diminished. HEART EXAMINATION: Regular rate and rhythm. S1, S2 heard. No murmurs, gallops or rub. ABDOMEN: Soft, nontender. Positive bowel sounds. EXTREMITIES: Right medial calcaneus unstageable ulcer with ecchymosis, necrosis, sloughing. 2+ peripheral pulses, no lower extremity edema or calf tenderness. NEUROLOGIC EXAMINATION: Cranial nerves II-12 grossly intact. Results CBC & Chem 7: 05/12/22 16:42 05/13/22 04:19 Labs: Abnormal Lab Results - Last 24 Hours (Table) 05/12/22 05/12/22 05/13/22 Range/Units 16:42 16:42 04:01 RDW 16.7 H (11.5-15.5) % Sodium 134 L (137-145) mmol/L Potassium 2.8 L (3.5-5.1) mmol/L Chloride 95 L (98-107) mmol/L BUN 39 H (7-17) mg/dL Creatinine 2.56 H (0.52-1.04) mg/dL Glucose 232 H (74-99) mg/dL POC Glucose (mg/dL) 249 H (70-110) mg/dL Total Bilirubin 1.4 H (0.2-1.3) mg/dL AST 61 H (14-36) U/L Total Protein (6.3-8.2) g/dL Albumin (3.5-5.0) g/dL 05/13/22 Range/Units 04:19 RDW (11.5-15.5) % Sodium 131 L (137-145) mmol/L Potassium (3.5-5.1) mmol/L Chloride (98-107) mmol/L BUN 39 H (7-17) mg/dL Creatinine 2.47 H (0.52-1.04) mg/dL Glucose 213 H (74-99) mg/dL POC Glucose (mg/dL) (70-110) mg/dL Total Bilirubin (0.2-1.3) mg/dL AST 58 H (14-36) U/L Total Protein 5.8 L (6.3-8.2) g/dL Albumin 3.1 L (3.5-5.0) g/dL Assessment and Plan Assessment: 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 Ischemic cardiomyopathy, EF 20-25% AICD placement. History of COPD/asthma, remote history of nicotine dependence. CAD, history of [place], prior PCI with stent placement. PAD, status post stenting of proximal right anterior tibial artery Hypertension. Hyperlipidemia. Obesity, BMI 33 Plan: Continue on current medication regime ,monitoring and symptomatic treatment. Nephrology and wound care consulted. Empiric antibiotics initiated. Patient previously scheduled to follow in wound care center with Dr. Barroso on May 19. Menjivar catheter to be changed, UA with micro-ordered. Blood cultures pending Offloading boots ordered. PPI ordered for GI prophylaxis. Omar bid between meals to aid in ulcer healing. Gentle IV fluid hydration. Close monitoring of renal function, electrolytes with repeat labs ordered for a.m.Discharge planning in progress for tomorrow. The impression and plan of care has been dictated as directed. : I performed a history and examination of this patient, discussed the same with the dictator. I agree with the dictator's note ,documented as a scribe. Any additional findings or plans will be noted.
--- NOTE | 2022-05-13 14:43 | P.NPCON ---
History of Present Illness - Reason for Consult acute renal failure - History of Present Illness Patient is a 67-year-old female with history of coronary artery disease, ischemic cardiomyopathy with ejection fraction of 20-25%, hypertension, chronic kidney disease NKF stage IIIB to IV secondary to diabetic kidney disease. Baseline creatinine around 1.6 mg/dL Patient presented to the hospital due to concern for possible right heel gangrene from home care nurse. Systolic blood pressure was borderline with systolic around 101-1 18 mmHg. Serum creatinine at 2.5 mg/dL and decreased to 2.4. Maintained on IV fluids. No history of fever chills nausea vomiting or abdominal pain No significant urinary symptoms. No history of use of NSAIDs. Review of Systems As per HPI Past Medical History Past Medical History: Asthma, Coronary Artery Disease (CAD), Chest Pain / Angina, Heart Failure, Diabetes Mellitus, Eye Disorder, Fibromyalgia, THERESA D/Reflux, Hyperlipidemia, Hypertension, Myocardial Infarction ([place]), Osteoarthritis (OA), Pneumonia, Renal Disease, Syncope, Vascular Disorder Additional Past Medical History / Comment(s): IDDM type II with insulin pump, neuropathy bilateral feet/legs, bilateral eye macular degeneration/diabetic retinopathy, CKD stage III, UTIs with one recently tx with antibiotic, bronchit is, IBS, constipation with last BM 10/14/19, DJD, osteopenia, L hip fracture with surgery, T12 compression fx with surgery, PAD with past bilateral foot wounds/currently has 2 small black spots on R great toe and L 2nd toe, vertigo, migraines, light headed with activity, bruises easily. Last Myocardial Infarction Date:: 02/12/2016 History of Any Multi-Drug Resistant Organisms: None Reported Past Surgical History: Adenoidectomy, AICD, Bariatric Surgery, Breast Surgery, Cholecystectomy, Heart Catheterization, Heart Catheterization With Stent, Hernia Repair, Joint Replacement, Orthopedic Surgery, Tonsillectomy Additional Past Surgical History / Comment(s): PCI/stent, AICD, lap band with removal/gastric sleeve, EGDs, colonoscopies, hiatal hernia surgery, multiple incisional hernia repairs/mesh, bilateral shoulder manipulation, total L hip arthroplasty, L little finger amputation, L elbow staph infection with surgery, T12 kyphoplasty/biopsy, R anterior PTBA with subsequent hematoma, L fempop arthrectomy/PTBA/stent, angiograms. bilateral breast benign biopsies, D&C. Past Anesthesia/Blood Transfusion Reactions: Postoperative Nausea & Vomiting (PONV) Additional Past Anesthesia/Blood Transfusion Reaction / Comment(s): Past blood transfusion 2015-no reaction. Date of Last Stent Placement:: 02/2016 Type of Cardiac Device: AICD Device Placement Date:: Past Psychological History: Anxiety, Depression Smoking Status: Former smoker Past Alcohol Use History: None Reported Past Drug Use History: None Reported - Past Family History Father Family Medical History: Diabetes Mellitus Additional Family Medical History / Comment(s): Alcoholism. Mother Family Medical History: COPD, Diabetes Mellitus, Deep Vein Thrombosis (DVT) Additional Family Medical History / Comment(s): . Medications and Allergies Home Medications Medication Instructions Recorded Confirmed Type Omeprazole [PriLOSEC] 40 mg PO AC-BRKFST 08/06/14 05/12/22 History Rosuvastatin Calcium 40 mg PO DAILY 10/22/16 05/12/22 History Potassium Chloride ER [K-Dur 10] 10 meq PO DAILY 03/18/18 05/12/22 History Ezetimibe [Zetia] 10 mg PO DAILY 06/15/19 05/12/22 History ALPRAZolam [Xanax] 0.25 mg PO HS 03/21/20 05/12/22 History Ferrous Sulfate [Iron (65 MG 325 mg PO DAILY 03/21/20 05/12/22 History Elemental)] calcitrioL [Rocaltrol] 0.5 mcg PO DAILY 03/21/20 05/12/22 History Cyclobenzaprine [Flexeril] 10 mg PO HS 03/24/20 05/12/22 History Escitalopram [Lexapro] 20 mg PO DAILY 03/24/20 05/12/22 History ALPRAZolam [Xanax] 0.25 mg PO BID PRN 10/02/21 05/12/22 History Ergocalciferol [Vitamin D2 (1250 1,250 mcg PO Q28D 03/23/22 05/12/22 History Mcg = 39116 Iu)] INSULIN LISPRO (For Pump) [humaLOG 0.01 units SQ-PUMP CONTINUOUS 03/23/22 05/12/22 History (For Pump)] cilostazoL [Pletal] 50 mg PO BID 03/23/22 05/12/22 History Gabapentin 300 mg PO BID 03/28/22 05/12/22 History Aspirin 81 mg PO DAILY tab 04/05/22 05/12/22 Rx Nitroglycerin Sl Tabs [Nitrostat] 0.4 mg SUBLINGUAL Q5M PRN #100 tab 04/05/22 05/12/22 Rx Sennosides [Senokot] 8.6 mg PO BID tab 04/05/22 05/12/22 Rx Ticagrelor [Brilinta] 90 mg PO BID #60 tab 04/05/22 05/12/22 Rx Furosemide [Lasix] 20 mg PO DAILY 05/12/22 05/12/22 History Metoprolol Succinate (ER) [Toprol 25 mg PO DAILY 05/12/22 05/12/22 History XL] Allergies Allergy/AdvReac Type Severity Reaction Status Date / Time adhesive tape Allergy Rash/Hives Verified 05/12/22 20:35 Penicillins Allergy Rash/Hives Verified 05/12/22 20:35 atorvastatin AdvReac Myalgia Verified 05/12/22 20:35 meperidine HCl [From Demerol] AdvReac Hallucinati Verified 05/12/22 20:35 ons Physical Exam Vitals: Vital Signs Temp Pulse Pulse Resp BP BP Pulse Ox 05/13/22 13:15 98 F 93 16 114/71 05/13/22 08:05 97.7 F 90 16 123/71 05/13/22 04:00 88 18 127/61 97 05/12/22 23:00 69 18 118/72 96 Intake and Output 05/12/22 05/13/22 05/13/22 22:59 06:59 14:59 Other: Voiding Method Indwelling Catheter Patient is awake, comfortable, no acute distress Examination of the heart S1 and S2 Examination lungs bilateral breath sounds are heard Abdomen is soft nontender Examination of the lower extremities shows right heel ulcer DRAMA THERAPIST exam grossly intact Results - Lab Results Most recent lab results Calcium 8.6 mg/dL (8.4-10.2) 05/13/22 04:19 05/12/22 16:42 05/13/22 04:19 Assessment and Plan Assessment: 1. Acute kidney injury, nonoliguric, and most likely prerenal. Maintained on IV fluids. Check urine analysis. 2. CK D NKF stage IIIB to 4 secondary to diabetic kidney disease with baseline creatinine about 1.6 mg/dL with an episode of acute kidney injury in March 2022 with creatinine of 2.9 on 04/28/2022 3. Right heel ulcer 4. Hypokalemia status post replacement 5. Urine retention with chronic indwelling Menjivar catheter scheduled to see urologist next week. 6. Ischemic cardiomyopathy with an ejection fraction of 20-25% 7. Coronary artery disease with history of previous coronary stenting Plan: Continue with IV fluids Continue with Menjivar catheter Repeat labs in a.m. Check UA Thank you for the consultation. We will continue to follow the patient with you during her hospitalization
[2022-05-13 14:58] LABS: Appearance,Urine Turbid (Clear); Bacteria,Urine Rare /hpf; Bilirubin,Urine Negative (Negative); Blood,Urine Large (Negative); Budding Yeast,Urine Many /hpf; Color,Urine Yellow; Glucose,Urine (UA) 3+ (Negative); Hyaline Casts,Urine 16 /lpf (0-2); Ketones,Urine Negative (Negative); Leukocyte Esterase,Urine Large (Negative); Nitrite,Urine Negative (Negative); PH, Urine 5.5 (5.0-8.0); Protein,Urine 2+ (Negative); RBC,Urine 26 /hpf (0-5); Specific Gravity,Urine 1.019 (1.001-1.035); Squamous Epithelial Cell,Urine 7 /hpf (0-4); Urobilinogen,Urine <2.0 mg/dL (<2.0); WBC,Urine >182 /hpf (0-5)
[2022-05-13 16:29] LABS: Appearance,Urine Cloudy (Clear); Bacteria,Urine Occasional /hpf; Bilirubin,Urine Negative (Negative); Blood,Urine Large (Negative); Budding Yeast,Urine Few /hpf; Color,Urine Yellow; Glucose,Urine (UA) 3+ (Negative); Hyaline Casts,Urine 1 /lpf (0-2); Ketones,Urine Negative (Negative); Leukocyte Esterase,Urine Moderate (Negative); Mucus,Urine Rare /hpf; Nitrite,Urine Negative (Negative); PH, Urine 5.5 (5.0-8.0); Protein,Urine 2+ (Negative); RBC,Urine 16 /hpf (0-5); Specific Gravity,Urine 1.016 (1.001-1.035); Squamous Epithelial Cell,Urine 1 /hpf (0-4); Urobilinogen,Urine <2.0 mg/dL (<2.0); WBC,Urine 33 /hpf (0-5)
[2022-05-13] MEDS: SODIUM CHLORIDE 0.9% 1,000 ML IV SCH (16:45)
[2022-05-13] MEDS: SENNOSIDES 8.6 MG TAB PO SCH ×2 (16:45→22:07)
[2022-05-13] MEDS: COLLAGENASE 250 UNIT/GM OINTMENT 30 GM TUBE TOPICAL SCH (16:46)
[2022-05-13 17:27] LABS: Glucose,Whole Blood 214 mg/dL (70-110)
[2022-05-13 20:38] LABS: Glucose,Whole Blood 309 mg/dL (70-110)
[2022-05-13] MEDS ORDERED: CYCLOBENZAPRINE 10 MG TAB PO SCH (21:00)
[2022-05-13] MEDS: FAMOTIDINE 20 MG TAB PO SCH (22:07)
[2022-05-13 22:14] VITALS: RESP 16
[2022-05-14 01:44] LABS: Amorphous Sediment,Urine Rare /hpf; Appearance,Urine Cloudy (Clear); Bacteria,Urine Rare /hpf; Bilirubin,Urine Negative (Negative); Blood,Urine Large (Negative); Budding Yeast,Urine Many /hpf; Color,Urine Yellow; Glucose,Urine (UA) 2+ (Negative); Granular Casts,Urine 3 /lpf (0); Hyaline Casts,Urine 4 /lpf (0-2); Ketones,Urine Negative (Negative); Leukocyte Esterase,Urine Large (Negative); Mucus,Urine Rare /hpf; Nitrite,Urine Negative (Negative); PH, Urine 5.5 (5.0-8.0); Protein,Urine 1+ (Negative); RBC,Urine 10 /hpf (0-5); Specific Gravity,Urine 1.018 (1.001-1.035); Squamous Epithelial Cell,Urine 1 /hpf (0-4); Urobilinogen,Urine <2.0 mg/dL (<2.0); WBC,Urine 45 /hpf (0-5)
[2022-05-14 02:11] VITALS: TEMP 97.4
[2022-05-14] MEDS: SODIUM CHLORIDE 0.9% 1,000 ML IV SCH (05:18)
[2022-05-14 07:08] LABS: Glucose,Whole Blood 112 mg/dL (70-110)
[2022-05-14 07:45] VITALS: BP 114/64; PULSE 77
[2022-05-14] MEDS ORDERED: NON FORMULARY DRUG (Rosuvastatin Calcium [Rosuvastatin Calcium] 40 MG Tablet) PO SCH (09:00)
[2022-05-14] MEDS: cilostazoL 100 MG TAB PO SCH (09:04)
[2022-05-14] MEDS: PANTOPRAZOLE 40 MG TABLET PO SCH (09:05)
[2022-05-14] MEDS: GABAPENTIN 300 MG CAP PO SCH (09:05)
[2022-05-14] MEDS: FAMOTIDINE 20 MG TAB PO SCH (09:05)
[2022-05-14] MEDS: ASPIRIN 81 MG PO SCH (09:05)
[2022-05-14] MEDS: INSULIN DETEMIR (LEVEMIR) 100 UNIT/ML SYR SQ SCH (09:05)
[2022-05-14] MEDS: ESCITALOPRAM 20 MG TAB PO SCH (09:05)
[2022-05-14] MEDS: TICAGRELOR 90 MG TAB PO SCH (09:05)
[2022-05-14] MEDS: METOPROLOL SUCCINATE (ER) 25 MG TAB.ER.24H PO SCH (09:05)
[2022-05-14] MEDS: FERROUS SULFATE 325 MG TAB PO SCH (09:05)
[2022-05-14] MEDS: INSULIN ASPART (NovoLOG) 100 UNIT/ML VIAL SQ SCH ×2 (09:06→12:58)
[2022-05-14] MEDS: SENNOSIDES 8.6 MG TAB PO SCH (09:09)
[2022-05-14 09:16] LABS: Basophils # (A) 0.05 X 10*3/uL (0.00-0.10); Basophils % (A) 0.6 %; Eosinophils # (A) 0.18 X 10*3/uL (0.04-0.35); Eosinophils % (A) 2.3 %; HCT 31.7 % (37.2-46.3); HGB 9.7 g/dL (12.0-15.0); Immature Grans, Automated 0.4 %; Lymphocytes # (A) 1.59 X 10*3/uL (0.90-5.00); Lymphocytes % (A) 19.9 %; MCH 26.6 pg (27.0-32.0); MCHC 30.6 g/dL (32.0-37.0); MCV 86.8 fL (80.0-97.0); Mean Platelet Volume 10.6 fL (9.5-12.2); Monocytes # (A) 0.65 X 10*3/uL (0.20-1.00); Monocytes % (A) 8.1 %; NRBC Per 100 WBC 0 /100 WBCS (0.0-0.0); Neutrophils # (A) 5.49 X 10*3/uL (1.80-7.70); Neutrophils % (A) 68.7 %; Platelet Count 253 X 10*3/uL (140-440); RBC 3.65 X 10*6/uL (4.10-5.20); RDW 17.9 % (11.5-14.5); WBC 7.99 X 10*3/uL (4.50-10.00)
[2022-05-14 09:32] LABS: African American GFR (CKD) 24.8 (60.0-200.0); Anion Gap 9.9 mmol/L (10.00-18.00); BUN/Creat Ratio 16.71 Ratio (12.00-20.00); Blood Urea Nitrogen 38.1 mg/dL (9.0-27.0); Calcium 8.7 mg/dL (8.7-10.3); Carbon Dioxide 24.1 mmol/L (20.0-27.5); Non-African American GFR(CKD) 21.4 (60.0-200.0); Potassium 3.1 mmol/L (3.5-5.5)
[2022-05-14] MEDS ORDERED: POTASSIUM CHLORIDE ER 20 MEQ TAB.ER PO STA (10:40)
--- NOTE | 2022-05-14 11:06 | P.DS ---
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 Ischemic cardiomyopathy, EF 20-25% AICD placement. History of COPD/asthma, remote history of nicotine dependence. CAD, history of [place], prior PCI with stent placement. PAD, status post stenting of proximal right anterior tibial artery Hypertension. Hyperlipidemia. Obesity, BMI 33 Hospital course:This is a pleasant 67-year-old female with past medical history of CAD, NSTEMI status post PCI distal RCA, mid RCA and proximal RCA on 03/30, ischemic cardiomyopathy, EF 20-25%, AICD, peripheral artery disease s/p stenting of proximal right anterior tibial artery, hypertension,type 2 diabetes, and dyslipidemia and multiple other medical issues, directed to the ER by [facility] care nurse regarding further evaluation of diabetic nonhealing ulcer of right heel without acute changes; no drainage, no foul odor. Patient is wheelchair bound, and no weightbearing on the affected extremity. Foot x-ray reports density overlying the heel soft tissues may reflect underlying dressing Limited study detailing visualization of the posterior calcaneal cortex, no obvious shane destruction 16, bony sclerosis, query underlying stress/insufficiency fracture or chronic osteomyelitis. Patient reports her blood sugars were uncontrolled, in the 500s at home. Blood sugar on admission 249. Has insulin pump, currently off-. Blood sugars ranging low 200s to 250s.Chronic indwelling Menjivar catheter secondary to urinary retention and scheduled to see Dr. Vega. Menjivar catheter has been present 10 days. Creatinine 2.56 on admission, baseline around 2.Reports ongoing right heel pain, not worsened. Patient receives treatment at the wound care center, last treatment around . Afebrile, normal WBC. Lactic acid 2. Hypokalemic on admission with potassium 2.8, supplemented and currently 5. Denies any chest pain, palpitations or shortness of breath. Denies any lightheadedness, dizziness or focal deficits. Denies any nausea vomiting or diarrhea. Denies abdominal pain. Evaluated by both nephrology and wound care services. No further antibiotics recommended at this time per home care. Local wound care with Santyl dressings. Patient has a previously scheduled appointment with [facility] on the . Receiving potassium supplementation. Maintained on gentle IV fluid hydration. Menjivar catheter replaced on admission, urine culture pending.Diuretics remain on hold, to resume on 05/19/2022 as per neurology. Significant clinical improvement, creatinine down to 2.3. Blood sugars better controlled, currently 112. Patient will resume her insulin pump, reports she has all her DM supplies. Cleared by wound care services and nephrology for discharge. Denies chest pain, palpitations or shortness of breath. Denies lightheadedness, dizziness or focal deficits. Patient will be discharged home today in stable condition with guarded prognosis. The impression and plan of care has been dictated as directed. : I performed a history and examination of this patient, discussed the same with the dictator. I agree with the dictator's note ,documented as a scribe. Any additional findings or plans will be noted. Patient Condition at Discharge: Stable Plan - Discharge Summary Discharge Rx Participant: No New Discharge Prescriptions: New Collagenase [Santyl Ointment] 1 applic TOPICAL DAILY each Continue Omeprazole [PriLOSEC] 40 mg PO AC-BRKFST Rosuvastatin Calcium 40 mg PO DAILY Potassium Chloride ER [K-Dur 10] 10 meq PO DAILY Ezetimibe [Zetia] 10 mg PO DAILY Ferrous Sulfate [Iron (65 MG Elemental)] 325 mg PO DAILY calcitrioL [Rocaltrol] 0.5 mcg PO DAILY ALPRAZolam [Xanax] 0.25 mg PO HS Escitalopram [Lexapro] 20 mg PO DAILY Cyclobenzaprine [Flexeril] 10 mg PO HS ALPRAZolam [Xanax] 0.25 mg PO BID PRN PRN Reason: Anxiety Gabapentin 300 mg PO BID Aspirin 81 mg PO DAILY tab Sennosides [Senokot] 8.6 mg PO BID tab Metoprolol Succinate (ER) [Toprol XL] 25 mg PO DAILY cilostazoL [Pletal] 50 mg PO BID Ergocalciferol [Vitamin D2 (1250 Mcg = 57636 Iu)] 1,250 mcg PO Q28D INSULIN LISPRO (For Pump) [humaLOG (For Pump)] 0.01 units SQ-PUMP CONTINUOUS Ticagrelor [Brilinta] 90 mg PO BID #60 tab Nitroglycerin Sl Tabs [Nitrostat] 0.4 mg SUBLINGUAL Q5M PRN #100 tab PRN Reason: Chest Pain Furosemide [Lasix] 20 mg PO DAILY #0 Discharge Medication List Omeprazole [PriLOSEC] 40 mg PO AC-BRKFST 08/06/14 [History] Rosuvastatin Calcium 40 mg PO DAILY 10/22/16 [History] Potassium Chloride ER [K-Dur 10] 10 meq PO DAILY 03/18/18 [History] Ezetimibe [Zetia] 10 mg PO DAILY 06/15/19 [History] ALPRAZolam [Xanax] 0.25 mg PO HS 03/21/20 [History] Ferrous Sulfate [Iron (65 MG Elemental)] 325 mg PO DAILY 03/21/20 [History] calcitrioL [Rocaltrol] 0.5 mcg PO DAILY 03/21/20 [History] Cyclobenzaprine [Flexeril] 10 mg PO HS 03/24/20 [History] Escitalopram [Lexapro] 20 mg PO DAILY 03/24/20 [History] ALPRAZolam [Xanax] 0.25 mg PO BID PRN 10/02/21 [History] Ergocalciferol [Vitamin D2 (1250 Mcg = 44945 Iu)] 1,250 mcg PO Q28D 03/23/22 [History] INSULIN LISPRO (For Pump) [humaLOG (For Pump)] 0.01 units SQ-PUMP CONTINUOUS 03/23/22 [History] cilostazoL [Pletal] 50 mg PO BID 03/23/22 [History] Gabapentin 300 mg PO BID 03/28/22 [History] Aspirin 81 mg PO DAILY tab 04/05/22 [Rx] Nitroglycerin Sl Tabs [Nitrostat] 0.4 mg SUBLINGUAL Q5M PRN #100 tab 04/05/22 [Rx] Sennosides [Senokot] 8.6 mg PO BID tab 04/05/22 [Rx] Ticagrelor [Brilinta] 90 mg PO BID #60 tab 04/05/22 [Rx] Metoprolol Succinate (ER) [Toprol XL] 25 mg PO DAILY 05/12/22 [History] Collagenase [Santyl Ointment] 1 applic TOPICAL DAILY each 05/14/22 [Rx] Furosemide [Lasix] 20 mg PO DAILY #0 05/14/22 [Rx] Follow up Appointment(s)/Referral(s): Augustina Nieves MD [STAFF PHYSICIAN] - 1 Week Jairo Levi DO [Primary Care Provider] - 1 Week Eveline Gale NPC [Nurse Practitioner] - 05/19/22 (as prev. scheduled ) Quique Montoya MD [STAFF PHYSICIAN] - 1 Week [facility] Visiting Nurse, [NON-STAFF] - 1 Week Ambulatory/Diagnostic Orders: Basic Metabolic Panel [LAB.AMB] Time Frame: 3 Days, Location: None Selected Discharge/Stand Alone Forms: Who Do I Call?, Community Resources, Help In The Home
[2022-05-14] MEDS: COLLAGENASE 250 UNIT/GM OINTMENT 30 GM TUBE TOPICAL SCH (11:13)
[2022-05-14 11:15] LABS: Glucose,Whole Blood 199 mg/dL (70-110)
[2022-05-15] MEDS ORDERED: FAMOTIDINE 20 MG TAB PO SCH (09:00)
[2022-06-02] MEDS ORDERED: ERGOCALCIFEROL 1,250 MCG (50,000 IU) CAPSULE PO SCH (09:00)
== END 2022-05-14 13:50 | disposition home health service (06) ==
LOC: EC 13:25 → 6NMEDSUR 18:49 → 4SSUR 05-13 06:54 → 5NMEDONC 05-13 13:50
PROVIDERS: ADMIT Family Medicine; ATTEND Family Medicine
DX: E11.621 Type 2 diabetes mellitus with foot ulcer (principal); L89.610 Pressure ulcer of right heel, unstageable; N17.9 Acute kidney failure, unspecified; E87.6 Hypokalemia; E11.51 Type 2 diabetes mellitus with diabetic peripheral angiopathy without gangrene; I25.10 Atherosclerotic heart disease of native coronary artery without angina pectoris; J44.9 Chronic obstructive pulmonary disease, unspecified; I25.5 Ischemic cardiomyopathy; R33.9 Retention of urine, unspecified; I13.0 Hypertensive heart and chronic kidney disease with heart failure and stage 1 through stage 4 chronic kidney disease, or unspecified chronic kidney disease; I50.22 Chronic systolic (congestive) heart failure; N18.32 Chronic kidney disease, stage 3b; M79.7 Fibromyalgia; K21.9 Gastro-esophageal reflux disease without esophagitis; E78.5 Hyperlipidemia, unspecified; E11.40 Type 2 diabetes mellitus with diabetic neuropathy, unspecified; E11.22 Type 2 diabetes mellitus with diabetic chronic kidney disease; E11.319 Type 2 diabetes mellitus with unspecified diabetic retinopathy without macular edema; F32.A Depression, unspecified; F41.9 Anxiety disorder, unspecified; I25.2 Old myocardial infarction; E66.9 Obesity, unspecified; Z68.33 Body mass index [BMI] 33.0-33.9, adult; Z87.440 Personal history of urinary (tract) infections; Z87.891 Personal history of nicotine dependence; Z98.84 Bariatric surgery status; Z95.5 Presence of coronary angioplasty implant and graft; Z95.810 Presence of automatic (implantable) cardiac defibrillator; Z96.642 Presence of left artificial hip joint; Z99.3 Dependence on wheelchair; Z79.899 Other long term (current) drug therapy; Z96.41 Presence of insulin pump (external) (internal); Z79.02 Long term (current) use of antithrombotics/antiplatelets; Z79.82 Long term (current) use of aspirin; Z88.0 Allergy status to penicillin; Z88.6 Allergy status to analgesic agent; Z83.3 Family history of diabetes mellitus; Z82.5 Family history of asthma and other chronic lower respiratory diseases
CPT/HCPCS: 96366 ×4; 96372 ×3; 96365; 96367; 99285; 36415; 80053 ×2; 80048; 83605; 85025 ×2; 81001; 87040; 87086; 83036; 73630; G0378 ×4; J0690 ×2; J3480 ×2

== ENCOUNTER 2022-05-27 14:57 | Emergency (ER) | payer MEDICARE ==
[2022-05-27 15:10] VITALS: RESP 18; TEMP 97.7
[2022-05-27] MEDS ORDERED: traMADol 50 MG TAB PO STA (15:49)
--- NOTE | 2022-05-27 15:52 | ED ---
Lower Extremity Injury HPI - General Chief Complaint: Extremity Injury, Lower Stated Complaint: knee pain Time Seen by Provider: 05/27/22 15:20 Source: patient, EMS Mode of arrival: EMS Limitations: no limitations - History of Present Illness Initial Comments: This patient is a 67-year-old woman who complains of having pain to the right knee. Patient states she had a fall in September of last year and since that time has been having chronic intermittent right knee pains. She states that she has seen Dr. Palumbo who has told her she has chronic arthritis of the knee. The patient relates that she has not really had an new injury since September. She does not walk. She has not noted any systemic symptoms, no fever or chills. No chest pain, palpitations, dyspnea or other symptoms. The patient states that EMS had given her medicine which has helped the knee pain. MD Complaint: knee injury -: hour(s) Injury: Ankle: Right Severity: moderate Worsens With: nothing Treatments Prior to Arrival: other - Related Data Home Medications Medication Instructions Recorded Confirmed Omeprazole [PriLOSEC] 40 mg PO AC-BRKFST 08/06/14 05/31/22 Rosuvastatin Calcium 40 mg PO DAILY 10/22/16 05/31/22 Potassium Chloride ER [K-Dur 10] 10 meq PO DAILY 03/18/18 05/31/22 Ezetimibe [Zetia] 10 mg PO DAILY 06/15/19 05/31/22 ALPRAZolam [Xanax] 0.25 mg PO HS 03/21/20 05/31/22 Ferrous Sulfate [Iron (65 MG 325 mg PO DAILY 03/21/20 05/31/22 Elemental)] calcitrioL [Rocaltrol] 0.5 mcg PO DAILY 03/21/20 05/31/22 Cyclobenzaprine [Flexeril] 10 mg PO HS 03/24/20 05/31/22 Escitalopram [Lexapro] 20 mg PO DAILY 03/24/20 05/31/22 ALPRAZolam [Xanax] 0.25 mg PO BID PRN 10/02/21 05/31/22 Ergocalciferol [Vitamin D2 (1250 1,250 mcg PO Q28D 03/23/22 05/31/22 Mcg = 82200 Iu)] INSULIN LISPRO (For Pump) [humaLOG 0.01 units SQ-PUMP CONTINUOUS 03/23/22 05/31/22 (For Pump)] cilostazoL [Pletal] 50 mg PO BID 03/23/22 05/31/22 Gabapentin 300 mg PO BID 03/28/22 05/31/22 Metoprolol Succinate (ER) [Toprol 25 mg PO DAILY 05/12/22 05/31/22 XL] Previous Rx's Medication Instructions Recorded Aspirin 81 mg PO DAILY tab 04/05/22 Nitroglycerin Sl Tabs [Nitrostat] 0.4 mg SUBLINGUAL Q5M PRN #100 tab 04/05/22 Sennosides [Senokot] 8.6 mg PO BID tab 04/05/22 Ticagrelor [Brilinta] 90 mg PO BID #60 tab 04/05/22 Collagenase [Santyl Ointment] 1 applic TOPICAL DAILY each 05/14/22 Furosemide [Lasix] 20 mg PO DAILY #0 05/14/22 traMADol HCl [Ultram] 50 mg PO Q6H PRN #20 tab 05/27/22 Allergies Allergy/AdvReac Type Severity Reaction Status Date / Time adhesive tape Allergy Rash/Hives Verified 05/31/22 16:07 Penicillins Allergy Rash/Hives Verified 05/31/22 16:07 atorvastatin AdvReac Myalgia Verified 05/31/22 16:07 meperidine HCl [From Demerol] AdvReac Hallucinati Verified 05/31/22 16:07 ons Review of Systems ROS Statement: Those systems with pertinent positive or pertinent negative responses have been documented in the HPI. ROS Other: All systems not noted in ROS Statement are negative. Past Medical History Past Medical History: Asthma, Coronary Artery Disease (CAD), Chest Pain / Angina, Heart Failure, Diabetes Mellitus, Eye Disorder, Fibromyalgia, G ERD/Reflux, Hyperlipidemia, Hypertension, Myocardial Infarction (NE), Osteoarthritis (OA), Pneumonia, Renal Disease, Syncope, Vascular Disorder Additional Past Medical History / Comment(s): IDDM type II with insulin pump, neuropathy bilateral feet/legs, bilateral eye macular degeneration/diabetic retinopathy, CKD stage III, UTIs with one recently tx with antibiotic, bronch itis, IBS, constipation with last BM 10/14/19, DJD, osteopenia, L hip fracture with surgery, T12 compression fx with surgery, PAD with past bilateral foot wounds/currently has 2 small black spots on R great toe and L 2nd toe, vertigo, migraines, light headed with activity, bruises easily. Last Myocardial Infarction Date:: 02/12/2016 History of Any Multi-Drug Resistant Organisms: None Reported Past Surgical History: Adenoidectomy, AICD, Bariatric Surgery, Breast Surgery, Cholecystectomy, Heart Catheterization, Heart Catheterization With Stent, Hernia Repair, Joint Replacement, Orthopedic Surgery, Tonsillectomy Additional Past Surgical History / Comment(s): PCI/stent, AICD, lap band with removal/gastric sleeve, EGDs, colonoscopies, hiatal hernia surgery, multiple incisional hernia repairs/mesh, bilateral shoulder manipulation, total L hip arthroplasty, L little finger amputation, L elbow staph infection with surgery, T12 kyphoplasty/biopsy, R anterior PTBA with subsequent hematoma, L fempop arthrectomy/PTBA/stent, angiograms. bilateral breast benign biopsies, D&C. Past Anesthesia/Blood Transfusion Reactions: Postoperative Nausea & Vomiting (PONV) Additional Past Anesthesia/Blood Transfusion Reaction / Comment(s): Past blood transfusion 2016-no reaction. Date of Last Stent Placement:: 02/2016 Type of Cardiac Device: AICD Device Placement Date:: Past Psychological History: Anxiety, Depression Smoking Status: Former smoker Past Alcohol Use History: None Reported Past Drug Use History: None Reported - Past Family History Father Family Medical History: Diabetes Mellitus Additional Family Medical History / Comment(s): Alcoholism. Mother Family Medical History: COPD, Diabetes Mellitus, Deep Vein Thrombosis (DVT) Additional Family Medical History / Comment(s): . General Exam Limitations: no limitations General appearance: alert, in no apparent distress Head exam: Present: atraumatic, normocephalic Respiratory exam: Present: normal lung sounds bilaterally. Absent: respiratory distress, wheezes, rales, rhonchi, stridor Cardiovascular Exam: Present: regular rate, normal rhythm, normal heart sounds. Absent: systolic murmur, diastolic murmur, rubs, gallop Extremities exam: Present: normal inspection, tenderness, normal capillary refill, other (There is muscle wasting symmetric bilateral lower extremities). Absent: pedal edema Right Hip exam: Present: normal inspection, full ROM. Absent: tenderness, swelling Upper Leg exam: Present: normal inspection, full ROM. Absent: tenderness, swelling Knee exam: Present: normal inspection, full ROM, tenderness. Absent: swelling, abrasion, laceration, ecchymosis, deformity, crepitus, dislocation, erythema, effusion, pain w/ pronation/supination, pain/laxity with valgus, pain/laxity with varus Lower Leg exam: Present: normal inspection, full ROM. Absent: tenderness, swelling, abrasion, laceration, ecchymosis, deformity, crepitus, dislocation Ankle exam: Present: normal inspection, full ROM. Absent: tenderness, swelling Neurological exam: Present: alert. Absent: motor sensory deficit Skin exam: Present: warm, dry, intact, normal color. Absent: rash Course Vital Signs 05/27/22 05/27/22 15:07 17:52 Temperature 97.7 F 97.7 F Pulse Rate 79 71 Respiratory 18 18 Rate Blood Pressure 119/59 142/77 O2 Sat by Pulse 96 96 Oximetry Medical Decision Making - Medical Decision Making Patient is 67-year-old woman here for evaluation of right knee arthralgia. The patient did have right knee x-ray series, interpreted by myself as not showing any acute bony trauma Examination of the patient's knee does not reveal evident inflammatory arthropathy or evidence of septic arthritis. does appear to be chronic osteoarthritis. The patient has had symptom relief with analgesia here. Discussed appropriate further care and follow-up as well as return parameters. Was pt. sent in by a medical professional or institution? @ -no Did you speak to anyone other than the patient for history? @ -[no Did you review nursing and triage notes? @ -[agree Were old charts reviewed? @ -Previous record Differential Diagnosis? @ -[Differential diagnosis right knee arthralgia includes septic arthritis, inflammatory arthropathies, traumatic injury, osteoarthritis, neurovascular pathology EKG interpreted by me (3pts min.)? @ -[none] X-rays interpreted by me (1pt min.)? @ -[See chart CT interpreted by me (1pt min.)? @ -[none] U/S interpreted by me (1pt. min.)? @ -[none] What testing was considered but not performed? (CT, X-rays, U/S, labs)? Why? @ [none What meds were considered but not given? Why? @ -[none] Did you discuss the management of the patient with other professionals? @ -[No Did you reconcile home meds? @ -[none] Was smoking cessation discussed for >3mins.? @ -[none] Was critical care preformed (if so, how long)? @ -[none] Were there social determinants of health that impacted care today? How? (Homelessness, low income, unemployed, alcoholism, drug addiction, transportation, low edu. Level, literacy, decrease access to med. care, snf, rehab)? @ -[no Was there de-escalation of care discussed even if they declined? (Discuss DNR or withdrawal of care, Hospice)? @ -[no What co-morbidities impacted this encounter? (DM, HTN, Smoking, COPD, CAD, Cancer, CVA, Hep., AIDS, mental health diagnosis, sleep apnea, morbid obesity)? @ -[None Was patient admitted / discharged? @ -[Discharged Undiagnosed new problem with uncertain prognosis? @ -[none] Drug Therapy requiring intensive monitoring for toxicity (Heparin, Nitro, Insulin, Cardizem)? @ -[none] Were any procedures done? @ -[none] Diagnosis/symptom? @ -Right knee Arthralgia Acute, or Chronic, or Acute on Chronic? @ -[Acute on chronic Uncomplicated (without systemic symptoms) or Complicated (systemic symptoms)? @ -[Uncomplicated Side effects of treatment? @ -[none] Exacerbation, Progression, or Severe Exacerbation] @ -[no] Poses a threat to life or bodily function? @ -[no] Disposition Clinical Impression: Chronic pain of right lower extremity Disposition: HOME SELF-CARE Condition: Good Instructions (If sedation given, give patient instructions): Knee Pain (ED) Prescriptions: traMADol HCl [Ultram] 50 mg PO Q6H PRN #20 tab PRN Reason: Pain Is patient prescribed a controlled substance at d/c from ED?: Yes When asked, does pt state using other controlled substances?: No If prescribed controlled substance>3 days was MAPS reviewed?: Prescribed <3 Days If opioid is for acute pain is fill amount 7 days or less?: Yes If Rx opioid, was Start Talking consent form obtained?: Yes Referrals: Jairo Levi DO [Primary Care Provider] - 1-2 days Juancho Palumbo DO [Doctor of Osteopathic Medicine] - 1-2 days Lia Baig MD [STAFF PHYSICIAN] - 1-2 days
--- NOTE | 2022-05-27 16:17 | XR ---
EXAMINATION TYPE: XR knee complete RT DATE OF EXAM: 05/27/2022 4:11 PM INDICATION: Patient age:Female; 67 years old; Reason for study: pain; COMPARISON: None. TECHNIQUE: The Right knee(s) was examined in Frontal, lateral and oblique projections. FINDINGS: Diffuse osseous demineralization. No evidence of any acute osseous pathology, soft tissue swelling, or joint effusion is noted. Atherosclerosis of the arterial vasculature. IMPRESSION: No displaced fracture. If there remains concern for an occult fracture consider MRI.
--- NOTE | 2022-05-27 17:20 | XR ---
PROCEDURE: XR femur RT - 4V DATE AND TIME: 05/27/2022 5:03 PM CLINICAL INDICATION: PHH; pain TECHNIQUE: Total 4 views, imaging from hip to knee. COMPARISON: None FINDINGS: There is no fracture or malalignment. The soft tissues are unremarkable. IMPRESSION: No acute process.
[2022-05-27 17:53] VITALS: BP 142/77; PULSE 71
== END 2022-05-27 17:53 | disposition home or self-care (01) ==
LOC: EC 14:57
DX: G89.29 Other chronic pain (principal); M25.561 Pain in right knee; J45.909 Unspecified asthma, uncomplicated; I25.10 Atherosclerotic heart disease of native coronary artery without angina pectoris; E11.9 Type 2 diabetes mellitus without complications; K21.9 Gastro-esophageal reflux disease without esophagitis; I11.0 Hypertensive heart disease with heart failure; I50.9 Heart failure, unspecified; M19.90 Unspecified osteoarthritis, unspecified site; F41.9 Anxiety disorder, unspecified; F32.A Depression, unspecified; Z87.891 Personal history of nicotine dependence; Z88.0 Allergy status to penicillin; Z88.8 Allergy status to other drugs, medicaments and biological substances; Z88.5 Allergy status to narcotic agent; Z91.048 Other nonmedicinal substance allergy status; Z79.899 Other long term (current) drug therapy; Z79.4 Long term (current) use of insulin
CPT/HCPCS: 99284